=== PATIENT | male | born 1930 | race Caucasian/White ===

== ENCOUNTER → 2017-04-24 | Day surgery (SDC) | payer BC, MEDICARE, OTHER ==
[~2017-04-24] VITALS: Ht 172.7 cm; Wt 62.4 kg
[2017-04-24] VITALS (9 sets, daily range): BP systolic 98–107; BP diastolic 45–60; PULSE 86–92; RESP 22–34; Ht 172.7 cm; Wt 62.4 kg
[~2017-04-24] MED LIST: ACET325S17 GTB; AMIO200T2 GTB; ASC250 GTB; BRIM10DR12 BOTH EYES; BUDE0.5A INHALATION; CEFAZOLIN 1 GM/50 ML (PMX) 50 ML IVPB ONE; CHLO473M4 MM; CHOL100062 GTB; CYAN500T46 GTB; DOXA1TAB GTB; FOL8 GTB; HYDR15SO8 GTB; IPRA3AMP INHALATION; LANS30CA GTB; LEVO500T72 GTB; LIDOCAINE 2% (SDV) 5 ML INJ ONE; LORA0.5T GTB; MELA5TAB4 GTB; METO-448 GTB; NEPH GTB; ONDA4TAB95 GTB; PHENYLephrine (100 MCG/ML) 5ML SYG ONE; POLY17PO6 GTB; PROPOFOL 20 ML ONE; PROT946L GTB; SERT25TA83 GTB; TRAM-40 GTB; UDFER GTB
--- NOTE | 2017-04-24 18:45 | GILP ---
DATE OF PROCEDURE: PROCEDURE: Percutaneous endoscopic gastrostomy and removal of the suture material. INDICATION: An 87-year-old male had infected G-tube, which was removed and I allowed the opening to close. The purpose of this procedure is to hopefully put a new G-tube through the same opening. T he risks of the procedure, related and unrelated complications, anesthetic risks, alternatives discu ssed with the and informed consent was obtained. DESCRIPTION OF PROCEDURE: The patient was brought to the GI lab, sedated by the anesthesiologist, Aba Rubio. After appropriate sedation, scope was passed with much ease into esophagus and advanc ed further down into stomach. In the stomach, bear claw clip was identified in the fundal area. Th ere was another clip found exactly opposite to the bear claw clip on the other wall. I looked there at the G-tube site. Suture material was identified. There was a suture material also seen in the external stoma. At this point, I passed a wire through the gastrocutaneous fistula. ____ inside th e stomach, was snared with transendoscopically passed snare, and the whole procedure was completed b y modified Ponsky technique. Before placing the external bumper, I removed the suture material from the external stoma. The suture material and internal stoma we were able to break it because it was in the form of loop. Part of it was removed. The other part could not come out, which it was not clear to me, maybe there was a knot inside. This happens to be in the abdominal wall. So, scope wa s removed and external bumper was appropriately positioned. The patient tolerated the procedure alejandra y well. IMPRESSION: 1. Successful placement of G-tube done through the same opening. 2. Suture material was removed from the external stoma. 3. Part of the suture material removed from the internal stoma, the other part hoping ready to fall off. PLAN: Resume feeding through the G-tube, abdominal binder, and will examine the G-tube site for dev elopment of any infection. Dictated By: LIANNA JAUREGUI/NTS Conf#: [id number] DID#: [id number] CC: LIGIA MATAMOROS DO; LIANNA BOWLING MD;*EndCC*
== END | disposition home or self-care (01) ==
LOC: ZBAR 09:00
PROVIDERS: ATTEND Internal Medicine Gastroenterology
DX: R13.10 Dysphagia, unspecified (principal); I12.9 Hypertensive chronic kidney disease with stage 1 through stage 4 chronic kidney disease, or unspecified chronic kidney disease; N18.9 Chronic kidney disease, unspecified; I25.10 Atherosclerotic heart disease of native coronary artery without angina pectoris; E78.5 Hyperlipidemia, unspecified
CPT/HCPCS: 43246; J0690; J2370

== ENCOUNTER 2017-08-11 09:06 | Inpatient (IN) | payer MEDICARE, BC, OTHER ==
[~2017-08-11] VITALS: Ht 167.6 cm; Wt 84.7 kg
[2017-08-11] VITALS (23 sets, daily range): BP systolic 90–119; BP diastolic 43–76; PULSE 68–86; RESP 20–38; TEMP 97.3; Ht 167.6 cm; Wt 84.7 kg
[~2017-08-11 09:06] MED LIST changes: -ASC250 GTB; +ASCO250T96 GTB; -CEFAZOLIN 1 GM/50 ML (PMX) 50 ML IVPB ONE; -LIDOCAINE 2% (SDV) 5 ML INJ ONE; -PHENYLephrine (100 MCG/ML) 5ML SYG ONE; -PROPOFOL 20 ML ONE
[2017-08-11] MEDS ORDERED: ACETAMINOPHEN 650MG/20.3ML CUP NGT STA (09:27)
[2017-08-11] MEDS ORDERED: SODIUM CHLORIDE 0.9% 1L BAG IV* STA (09:27)
[2017-08-11] MEDS ORDERED: CEFEPIME 2GM/50 ML (PMX) 50 ML IVPB STA (09:27)
[2017-08-11] MEDS ORDERED: FAMOTIDINE 20 MG INJ IV ONE (09:30)
[2017-08-11] MEDS ORDERED: VANCOMYCIN 1 GM (PMX) 250 ML IVPB ONE (09:30)
[2017-08-11 09:43] LABS: BASOPHILS % 0.2 % (0.0-2.0); EOSINOPHILS # 0.1 10^3/ul (0.0-0.5); EOSINOPHILS % 0.4 % (0.0-7.0); HEMATOCRIT 24.8 % (42.0-52.0); HEMOGLOBIN 7.4 g/dl (14.0-18.0); LYMPHOCYTES % 5.5 % (15.0-51.0); MEAN CORPUSCULAR HEMOGLOBIN 32.3 pg (29.0-33.0); MEAN CORPUSCULAR HGB CONC 29.8 g/dl (32.0-37.0); MEAN CORPUSCULAR VOLUME 108.3 fl (82.0-101.0); MEAN PLATELET VOLUME 12.2 fl (7.4-10.4); MONOCYTE # 1.5 10^3/ul (0.3-0.9); MONOCYTES % 8.1 % (0.0-11.0); NEUTROPHIL # 14.9 10^3/ul (1.6-7.5); NEUTROPHILS % 83.8 % (39.0-77.0); NUCLEATED RED BLOOD CELLS # 0.1 10^3/ul (0.0-0.0); NUCLEATED RED BLOOD CELLS% 0.5 /100WBC (0.0-0.0); PLATELET COUNT 177 10^3/UL (140-415); RED BLOOD COUNT 2.29 10^6/ul (4.70-6.10); RED CELL DISTRIBUTION WIDTH 21.8 % (11.5-14.5); WHITE BLOOD COUNT 17.8 10^3/ul (4.8-10.8)
[2017-08-11 09:57] LABS: AADO2 Arterial 236.7 mmHg (7.0-24.0); Allen Test ACCEPTAB; Arterial Base Excess -4.6 mmol/L (-3.0-3); Arterial COHb 0.3 % (0.0-3.0); Arterial Fraction of Oxyhgb 98.5 % (93.0-99.0); Arterial HCO3 24.7 mmol/L (22.0-26.0); Arterial MetHb 0.6 % (0.0-1.5); Arterial Total Hemglobin 7.7 g/dl (12.0-18.0); MODE VENT - AC
[2017-08-11] MEDS ORDERED: NORepinephrine 8MG/250 ML (PMX 250 ML ONE (10:02)
[2017-08-11 10:05] LABS: INR 1.41; PARTIAL THROMBOPLASTIN TIME 41.6 Sec (25.0-35.0); PROTIME 17.3 Sec (12.2-14.2); PT RATIO 1.4
[2017-08-11 10:14] LABS: ALANINE AMINOTRANSFERASE 39 IU/L (13-69); ALBUMIN 2.9 g/dl (3.3-4.9); ALKALINE PHOSPHATASE 264 IU/L (42-121); ANION GAP 14 (8-16); ASPARTATE AMINO TRANSFERASE 40 IU/L (15-46); CALCIUM 8.7 mg/dl (8.4-10.2); CARBON DIOXIDE 23 mmol/L (21-31); CHLORIDE 102 mmol/L (97-110); CREATININE 3.56 mg/dl (0.61-1.24); GLUCOSE 143 mg/dl (70-220); POTASSIUM 4.9 mmol/L (3.5-5.1); SODIUM 134 mmol/L (135-144); TOTAL PROTEIN 8.7 g/dl (6.1-8.1)
--- NOTE | 2017-08-11 10:17 | RADRPT ---
PROCEDURE: XR Chest. CLINICAL INDICATION: chest pain TECHNIQUE: Single frontal view of the chest was obtained COMPARISON: 05/12/2017 FINDINGS: There is moderate cardiomegaly with pulmonary vascular congestion. There are extensive bilateral upp er lobe and lower lobe infiltrates. There is a moderate right pleural effusion and a small to modera te left pleural effusion. There is a tracheostomy tube in place. RPTAT: AA IMPRESSION: Moderate cardiomegaly with pulmonary vascular congestion. Extensive bilateral upper lobe and lower lobe infiltrates. Moderate right pleural effusion and small to moderate left pleural effusion. .Eric Jhaveri MD, MD Date Time Electronically viewed and signed by .Eric Jhaveri MD, on 08/11/2017 10:17 .S/
[2017-08-11 10:24] LABS: BLOOD UREA NITROGEN 123 mg/dl (7-20)
[2017-08-11 10:29] LABS: TROPONIN-I < 0.012 ng/ml (0.00-0.12)
[2017-08-11] MEDS ORDERED: ASC500 GTB (11:39)
[2017-08-11] MEDS ORDERED: DIGO125T GTB (11:40)
[2017-08-11] MEDS ORDERED: CHOL200073 GTB (11:40)
[2017-08-11] MEDS ORDERED: DOCU-159 GTB (11:41)
[2017-08-11] MEDS ORDERED: FLUC100T39 GTB (11:41)
[2017-08-11] MEDS ORDERED: FOLI-49 GTB (11:42)
--- NOTE | 2017-08-11 11:42 | ERA ---
ER Documentation Chief Complaint Date/Time DATE: 08/11/17 TIME: 11:34 Chief Complaint BROUGHT IN VIA EMS FROM SNF DUE TO SOB,LETHARGIC, AND ALTERED HPI This is an 87-year-old male who is sent in by care home for decreased level of responsiveness. The patient's baseline is he has the ability to not shake his head yes or no at baseline. Today he is not doing this. The patient has a long-standing history of care home he is trached event, fed by G-tube and has an indwelling Pathak. is here and states he is a full code. There are no known obvious symptoms such as cough or fever. Very limited history ROS All systems reviewed and are negative except as per history of present illness. Medications Home Meds Reported Medications Cholecalciferol* (Vitamin D3*) 1,000 Unit Tablet, 1000 UNIT GTB DAILY, TAB 02/13/17 Ascorbic Acid (Vitamin C) 250 Mg Tab, 250 MG GTB DAILY, TAB 02/13/17 Tramadol Hcl* (Ultram*) 50 Mg Tablet, 50 MG GTB Q4H Y for PAIN, TAB FOR PAIN LEVEL 8-10 AND PRIOR TO WOUND CARE 02/13/17 Sertraline Hcl* (Sertraline Hcl*) 25 Mg Tablet, 25 MG GTB QHS, #30 TAB 02/13/17 Multivit/Ca Carb/B Cmplx/Fa* (Farhana-Emily*) 1 Tab Tab, 1 TAB GTB DAILY, TAB 02/13/17 Protein Supplement (Promod) 946 Ml Liquid, 30 ML GTB TID 02/13/17 Chlorhexidine Gluconate (Peridex) 473 Ml Mouthwash, 15 ML MM Q12H, BOTTLE 02/13/17 Ondansetron Hcl* (Ondansetron Hcl*) 4 Mg Tablet, 4 MG GTB Q4H Y for NAUSEA AND OR VOMITING, TAB 02/13/17 Polyethylene Glycol* (Miralax*) 17 Gm Powd.pack, 17 GM GTB DAILY, #30 PACKET 02/13/17 Metoprolol Tartrate* (Lopressor*) 25 Mg Tab, 12.5 MG GTB BID, #60 TAB HOLD IF SBP<110 OR HR<60 02/13/17 Melatonin (Melatonin) 5 Mg Tablet, 5 MG GTB HS, TAB 02/13/17 Hydrocodone Bit-Acetaminophen* (Lortab* Liq) 7.5 Mg-325 Mg/15 Ml Solution, 15 ML GTB Q6H Y for PAIN, ML 02/13/17 Lorazepam* (Lorazepam*) 0.5 Mg Tablet, 0.5 MG GTB Q12H Y for ANXIETY, TAB 02/13/17 Levofloxacin* (Levaquin*) 500 Mg Tablet, 500 MG GTB DAILY, TAB FOR 7 DAYS 02/14-02/2102/13/17 Lansoprazole* (Lansoprazole*) 30 Mg Capsule.dr, 30 MG GTB BID, CAP 02/13/17 Folic Acid (Fa-8) 0.8 Mg Tablet, 0.8 MG GTB DAILY, TAB 02/13/17 Ferrous Sulfate (Ferrous Sulfate) 300 Mg/5 Ml Liquid, 300 MG GTB DAILY 02/13/17 Ipratropium-Albuterol (Ipratropium-Albuterol) 0.5-3 Mg/3 Ml Ampul.neb, 3 ML INHALATION Q2H Y for PRN, #30 VIAL AND Q6H FOR SOB 02/13/17 Doxazosin Mesylate* (Doxazosin Mesylate*) 1 Mg Tablet, 1 MG GTB HS, TAB 02/13/17 Cyanocobalamin* (Vitamin B12*) 500 Mcg Tab, 1000 MCG GTB DAILY, TAB 02/13/17 Budesonide* (Budesonide*) 0.5 Mg/2 Ml Ampul.neb, 0.5 MG INHALATION BID, AMP 02/13/17 Brimonidine Tartrate* (Brimonidine Tartrate*) 0.15%-10ML Drop Opht, 1 DROP BOTH EYES BID, #1 EA 02/13/17 Amiodarone Hcl* (Amiodarone Hcl*) 200 Mg Tablet, 200 MG GTB DAILY, #30 TAB HOLD IF HR<60 02/13/17 Acetaminophen (MAPAP) 325 Mg/10.15 Ml Solution, 650 MG GTB Q4H Y for MILD PAIN LEVEL 1-3 FOR TEMP>101 02/13/17 Allergies Allergies: Coded Allergies: acetaminophen (Unverified Allergy, Unknown, 08/11/17) PMhx/Soc History of Surgery: Yes (PEG PLACEMENT, TRACH, HEMODIALYSIS ACCESS) Hx Neurological Disorder: No Hx Respiratory Disorders: Yes (HYPOXEMIA, RESP. FAILRE, COPD, VENT DEPENDENT) Hx Cardiac Disorders: Yes (AFIB, AORTIC STENOSIS, HEART FAILURE) Hx Miscellaneous Medical Probl: Yes (VENTILATOR DEPENDENT) Hx Substance Use: No Hx Tobacco Use: No (UNKNOWN) Smoking Status: Unknown if ever smoked FmHx Family History: No coronary disease Physical Exam Vitals Vital Signs Date Time Temp Pulse Resp B/P Pulse Ox O2 Delivery O2 Flow Rate FiO2 08/11/17 10:27 98.2 78 19 77/34 100 Trach Collar 08/11/17 10:00 66 18 81/44 100 Trach Collar 08/11/17 09:12 98.4 90 16 131/54 100 Physical Exam Const: [Well-developed, well-nourished, unresponsive] Head: [Atraumatic, normocephalic] Eyes: [Normal Conjunctiva, PERRLA, EOMI, normal sclera, no nystagmus] ENT: [Normal External Ears, Nose and Mouth, dry mucus membranes.] Neck: [Trachea is intact ventilating adequately no meningismus, no lymphadenopathy.] Resp: Diffuse bilateral rhonchi cardio: [Regular rate and rhythm , no murmurs, S1 S2 present] Abd: [Soft, G-tube intact, indwelling Pathak, non distended. Normal bowel sounds, no guarding or rebound, no pulsitile abdominal masses or bruits] Skin: [No petechiae or rashes, no ecchymosis , no maculopapular rash] Back: Several pressure sores different stages] Ext: [No cyanosis,, scattered skin tears and ecchymosis vascularly intact x 4] Neur: Unresponsive] Psych: [Unable to obtain Result Diagram: 08/11/1791808/11/17918 Results 24 hrs Laboratory Tests Test 08/11/17 09:19 08/11/17 09:32 White Blood Count 17.810^3/ul Red Blood Count 2.2910^6/ul Hemoglobin 7.4g/dl Hematocrit 24.8% Mean Corpuscular Volume 108.3fl Mean Corpuscular Hemoglobin 32.3pg Mean Corpuscular Hemoglobin Concent 29.8g/dl Red Cell Distribution Width 21.8% Platelet Count 24159^3/UL Mean Platelet Volume 12.2fl Neutrophils % 83.8% Lymphocytes % 5.5% Monocytes % 8.1% Eosinophils % 0.4% Basophils % 0.2% Nucleated Red Blood Cells % 0.5/100WBC Neutrophils # 14.910^3/ul Lymphocytes # 1.010^3/ul Monocytes # 1.510^3/ul Eosinophils # 0.110^3/ul Basophils # 0.010^3/ul Nucleated Red Blood Cells # 0.110^3/ul Prothrombin Time 17.3Sec Prothrombin Time Ratio 1.4 INR International Normalized Ratio 1.41 Activated Partial Thromboplast Time 41.6Sec Sodium Level 134mmol/L Potassium Level 4.9mmol/L Chloride Level 102mmol/L Carbon Dioxide Level 23mmol/L Anion Gap 14 Blood Urea Nitrogen 123mg/dl Creatinine 3.56mg/dl Glucose Level 143mg/dl Lactic Acid Level 1.0mmol/L Calcium Level 8.7mg/dl Total Bilirubin 0.0mg/dl Direct Bilirubin 0.00mg/dl Indirect Bilirubin 0.0mg/dl Aspartate Amino Transf (AST/SGOT) 40IU/L Alanine Aminotransferase (ALT/SGPT) 39IU/L Alkaline Phosphatase 264IU/L Troponin I < 0.012ng/ml Total Protein 8.7g/dl Albumin 2.9g/dl Globulin 5.80g/dl Albumin/Globulin Ratio 0.50 Blood Gas Specimen Source Blood arterial Arterial Blood Date Drawn 08/11/2017 9:50:30 AM Arterial Blood pH (Temp corrected) 7.131 Arterial Blood pCO2 (Temp correct) 75.8mmhg Arterial Blood pO2 (Temp corrected) 180.9mmHG Arterial Blood HCO3 24.7mmol/L Arterial Blood Base Excess -4.6mmol/L Arterial Blood Oxygen Saturation 99.4mmHG Folyd Test ACCEPTAB Arterial Blood Gas Puncture Site Right Radial Arterial Blood Carboxyhemoglobin 0.3% Arterial Blood Methemoglobin 0.6% Blood Gas A-a O2 Differential 236.7mmHg Oxyhemoglobin Percent 98.5% Total Hemoglobin 7.7g/dl Blood Gas Temperature 37.0C Blood Gas Respiration Rate 16.0 Blood Gas Actual Respiration Rate 19 Blood Gas Modality VENT - AC FiO2 70.0% Blood Gas Tidal Volume 500.0mL Blood Gas Low PEEP Setting 5.0cmH2O Blood Gas Critical Value Read Back TABITHA DO Blood Gas Notified Whom RT Blood Gas Notified Time 08/11/2017 9:57:23 AM Current Medications Medications (Trade) Dose Ordered Sig/Seth Route PRN Reason Start Time Stop Time Status Last Admin Dose Admin Sodium Chloride (NS) 2,680 ml BOLUS OVER 2 HOURS STAT IV* 08/11/17 09:27 08/11/17 09:29 DC 08/11/17 09:49 Famotidine (Pepcid Iv) 20 mg ONCE ONCE IV 08/11/17 09:30 08/11/17 09:31 DC 08/11/17 09:43 Acetaminophen 650 mg 650 mg ONCE STAT NGT 08/11/17 09:27 08/11/17 09:29 DC Cefepime HCl 50 ml @ 100 mls/hr ONCE STAT IVPB 08/11/17 09:27 08/11/17 09:56 DC 08/11/17 09:43 Vancomycin HCl 250 ml @ 125 mls/hr ONCE ONCE IVPB 08/11/17 09:30 08/11/17 11:29 DC 08/11/17 10:23 Norepinephrine (Levophed) 250 ml @ ud STK-MED ONCE .ROUTE 08/11/17 10:02 08/11/17 10:03 DC Procedures/MDM PROCEDURE: XR Chest. CLINICAL INDICATION: chest pain TECHNIQUE: Single frontal view of the chest was obtained COMPARISON: 05/12/2017 FINDINGS: There is moderate cardiomegaly with pulmonary vascular congestion. There are extensive bilateral upper lobe and lower lobe infiltrates. There is a moderate right pleural effusion and a small to moderate left pleural effusion. There is a tracheostomy tube in place. RPTAT: AA IMPRESSION: Moderate cardiomegaly with pulmonary vascular congestion. Extensive bilateral upper lobe and lower lobe infiltrates. Moderate right pleural effusion and small to moderate left pleural effusion. .Eric Jhaveri MD, MD Date Time Electronically viewed and signed by .Eric Jhaveri MD, MD on 08/11/2017 10: 17 .S/ CC: BROOKE LU DO EKG: Rate/Rhythm: Atrial fibrillation with aberrant conduction heart rate 92, prolonged QT QRS, ST, QT: NORMAL [place], QRS,] Impression: Atrial fibrillation] Patient's lactate is 1.0. He received sepsis fluids. Blood pressure still with a systolic of 80 and will start Levophed drip We will admit for bilateral pneumonia and hypotension and watch for sepsis. Critical Care Time: 35 minutes Treatments/Evaluations: Close monitoring and treatment of unstable vital signs, cardiorespiratory, and neurologic status, while maintaining tight balance of fluid, respiratory, and cardiac interventions. This time includes discussing the case with the patient and the patient's family. This time does not include all procedures stated elsewhere in this record. This time also includes reviewing old records, labs and radiological studies. This time includes examining and re-examining the patient. Additionally, this time also includes arranging care with admitting and consulting physicians. Departure Diagnosis: Primary Impression: Hypotension Qualified Code: I95.9 - Hypotension, unspecified hypotension type Additional Impression: Bilateral pneumonia Qualified Code: J18.9 - Pneumonia of both lungs due to infectious organism, unspecified part of lung Condition: Serious BROOKE LU DO Aug 11, 2017 11:42
[2017-08-11] MEDS ORDERED: LACT1CAP57 GTB (11:43)
[2017-08-11] MEDS ORDERED: MULTI GTB (11:44)
[2017-08-11] MEDS ORDERED: HYDR-906 GTB (11:44)
[2017-08-11] MEDS ORDERED: TRAM-40 GTB ×2 (11:46)
[2017-08-11] MEDS ORDERED: ZOLP5TAB7 GTB (11:47)
[2017-08-11] MEDS ORDERED: INSU100V3 IJ (11:54)
[2017-08-11] MEDS ORDERED: NORepinephrine 8MG/250 ML (PMX 250 ML IV STA (12:00)
[2017-08-11] MEDS ORDERED: ALBUTEROL/IPRATROPIUM (NEB) 3 ML AMP NEB PRN (13:00)
--- NOTE | 2017-08-11 14:07 | CONS ---
Date/Time of Note Date/Time of Note DATE: 08/11/17 TIME: 14:01 Assessment/Plan Assessment/Plan Additional Assessment/Plan It was reviewed which is showing bilateral infiltrates/pulmonary edema. Patient is currently on assist control of 22, tidal volume 500, PEEP of 0, 70% FiO2. Levophed at 7 mics per minute. Assessment and recommendations; 1. Patient admitted with severe sepsis from bilateral pneumonia. 2. Chronic respiratory failure which is ventilator dependent. 3. History of recurrent sepsis. 4. Advanced dementia. Continue supportive care. Continue current antibiotics. Overall prognosis remains very poor. Consultation Date/Type/Reason Admit Date/Time Date of Consultation: Aug 11, 2017 Type of Consultation: Pulmonary/critical care Reason for Consultation pulmonary/critical care consultation requested for evaluation of severe sepsis. History of presenting illness; patient is a 87-year-old male who was transferred from senior living to ER with complaints of being hypotensive and hypoxemic. Upon evaluation a chest x-ray was done which is showing diffuse bilateral pneumonia. Patient has been fluid resuscitated and currently on Levophed drip for hypotension. Patient has advanced dementia and was unable to give any history whatsoever. History was obtained from medical records as well as from patient's family who were present in the room. Past medical history; 1. Chronic respiratory failure. 2. History of recurrent sepsis. 3. Status post tracheostomy and G-tube placement. Patient; reviewed. Allergies; acetaminophen. Family history; patient is has supportive family. Occupation history; noncontributory. Review systems; unable to be obtained. General exam; elderly male, on ventilator via tracheostomy. Currently in no distress. Unresponsive. Social History Smoking Status: Unknown if ever smoked Exam/Review of Systems Vital Signs Vitals Vital Signs Date Time Temp Pulse Resp B/P Pulse Ox O2 Delivery O2 Flow Rate FiO2 08/11/17 14:00 76 20 66/33 100 Mechanical Ventilator Trach Collar 08/11/17 13:17 96.3 08/11/17 11:34 70 Exam HEENT exam; supple neck, positive JVD, no lymphadenopathy, patient is edentulous , tracheostomy in place, pupils are small bilaterally, no neck masses. Examined; bilateral crackles. S1-S2 audible, no murmurs. Abdomen exam; soft, protuberant. G-tube in place. Bowel sounds are sluggish. Extremity exam; 4 plus generalized edema. Patient has a multiple ecchymosis involving all 4 extremities. Scrotal edema is present. 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 Results Result Diagram: 08/11/1791808/11/17 0919 Results 24 hrs Laboratory Tests Test 08/11/17 09:19 08/11/17 09:32 08/11/17 11:26 White Blood Count 17.8 #H Red Blood Count 2.29 #L Hemoglobin 7.4 #L Hematocrit 24.8 #L Mean Corpuscular Volume 108.3 H Mean Corpuscular Hemoglobin 32.3 Mean Corpuscular Hemoglobin Concent 29.8 L Red Cell Distribution Width 21.8 H Platelet Count 177 Mean Platelet Volume 12.2 H Neutrophils % 83.8 H Lymphocytes % 5.5 L Monocytes % 8.1 Eosinophils % 0.4 Basophils % 0.2 Nucleated Red Blood Cells % 0.5 H Neutrophils # 14.9 H Lymphocytes # 1.0 Monocytes # 1.5 H Eosinophils # 0.1 Basophils # 0.0 Nucleated Red Blood Cells # 0.1 H Prothrombin Time 17.3 H Prothrombin Time Ratio 1.4 INR International Normalized Ratio 1.41 Activated Partial Thromboplast Time 41.6 H Sodium Level 134 L Potassium Level 4.9 Chloride Level 102 Carbon Dioxide Level 23 Anion Gap 14 Blood Urea Nitrogen 123 H Creatinine 3.56 H Glucose Level 143 Lactic Acid Level 1.0 1.3 Calcium Level 8.7 Total Bilirubin 0.0 L Direct Bilirubin 0.00 Indirect Bilirubin 0.0 Aspartate Amino Transf (AST/SGOT) 40 Alanine Aminotransferase (ALT/SGPT) 39 Alkaline Phosphatase 264 H Troponin I < 0.012 Total Protein 8.7 H Albumin 2.9 L Globulin 5.80 H Albumin/Globulin Ratio 0.50 Blood Gas Specimen Source Blood arterial Arterial Blood Date Drawn 08/11/2017 9:50:30 AM Arterial Blood pH (Temp corrected) 7.131 *L Arterial Blood pCO2 (Temp correct) 75.8 H Arterial Blood pO2 (Temp corrected) 180.9 H Arterial Blood HCO3 24.7 Arterial Blood Base Excess -4.6 L Arterial Blood Oxygen Saturation 99.4 Floyd Test ACCEPTAB Arterial Blood Gas Puncture Site Right Radial Arterial Blood Carboxyhemoglobin 0.3 Arterial Blood Methemoglobin 0.6 Blood Gas A-a O2 Differential 236.7 H Oxyhemoglobin Percent 98.5 Total Hemoglobin 7.7 L Blood Gas Temperature 37.0 Blood Gas Respiration Rate 16.0 Blood Gas Actual Respiration Rate 19 Blood Gas Modality VENT - AC FiO2 70.0 Blood Gas Tidal Volume 500.0 Blood Gas Low PEEP Setting 5.0 Blood Gas Critical Value Read Back TABITHA DO Blood Gas Notified Whom RT Blood Gas Notified Time 08/11/2017 9:57:23 AM DAKOTA SHELLEY Aug 11, 2017 14:07
[2017-08-11] MEDS ORDERED: SOD CHLORIDE 0.9% 250 ML IV* ONE (14:23)
[2017-08-11] MEDS ORDERED: VANCOMYCIN IV PER PHARMACY XX SCH (14:30)
[2017-08-11] MEDS ORDERED: GLUCOSE GEL 15 GRAM TUBE PO PRN ×2 (16:00)
[2017-08-11] MEDS ORDERED: GLUCOSE GEL 15 GRAM TUBE BUCCAL PRN (16:00)
[2017-08-11] MEDS ORDERED: GLUCAGON 1 MG INJ IM PRN (16:00)
[2017-08-11] MEDS ORDERED: DEXTROSE 50% 50 ML SYRINGE IV PRN ×2 (16:00)
[2017-08-11 16:19] LABS: ADD UMIC YES; UR ASCORBIC ACID NEGATIVE (NEGATIVE); UR BACTERIA MODERATE /HPF (NONE SEEN); UR BILIRUBIN (Dip) NEGATIVE (NEGATIVE); UR BLOOD (Dip) 2+ mg/dL (NEGATIVE); UR CLARITY TURBID (CLEAR); UR COLOR YELLOW (YELLOW); UR GLUCOSE (Dip) NEGATIVE (NEGATIVE); UR KETONES (Dip) NEGATIVE (NEGATIVE); UR LEUKOCYTE ESTERASE (Dip) 2+ Leu/ul (NEGATIVE); UR NITRITE (Dip) NEGATIVE (NEGATIVE); UR RBC 102 /HPF (0-5); UR SPECIFIC GRAVITY (Dip) 1.014 (1.003-1.030); UR TOTAL PROTEIN (Dip) 2+ mg/dl (NEGATIVE); UR UROBILINOGEN (Dip) NEGATIVE (NEGATIVE)
[2017-08-11] MEDS: SOD CHLORIDE 0.9% 1,000 ML IV SCH (16:32)
[2017-08-11] MEDS ORDERED: VANCOMYCIN 750 MG in SOD CHLORIDE 0.9% 150 ML IVPB ONE (17:00)
[2017-08-11] MEDS: INSULIN ASPART [NOVOLOG] 3 ML PEN SC SCH ×2 (18:00→20:56)
[2017-08-11] MEDS: LACTOBACILLUS RHAMNOSUS CAP GTB SCH (20:53)
[2017-08-11] MEDS ORDERED: PENDING SANTYL ORDER FOR WOUND CARE XX PRN (22:00)
--- NOTE | 2017-08-11 22:56 | CONS ---
Date/Time of Note Date/Time of Note DATE: 08/11/17 TIME: 22:49 Assessment/Plan Assessment/Plan Chief Complaint/Hosp Course 1) Hypotension 2) Septic shock 3) CRI 4) Preserved LV function 5) CHF diastolic acute and chronic 6) Chronic respiratory failure 7) Tracheostoma in situ 8) Premature beats 9) Dementia Problems: Additional Assessment/Plan 1) Echo 2) venous duplex 3) BNP 4) Magnesium level 5) D Dimer 6) pressors for SBP > 90 7) ABX 8) Respiratory care 9) Digoxin to every other day Consultation Date/Type/Reason Admit Date/Time Date of Consultation: Aug 11, 2017 Type of Consultation: cv Reason for Consultation hypotension Hx of Present Illness admitted with hypotensiion and hypothermia suggestive of septic shock. In ICU on vent, nonconversant. Subjective hx not possible: pt non-verbal, pt critical status Past Medical History Medical History: congestive heart failure, hypertension, renal disease, urinary tract infection, other (respiratory failure; chronic atrial fibrillation ) Family History Significant Family History: hypertension Social History Alcohol Use: none Smoking Status: Never smoker Drug Use: none Exam/Review of Systems Vital Signs Vitals Vital Signs Date Time Temp Pulse Resp B/P Pulse Ox O2 Delivery O2 Flow Rate FiO2 08/11/17 21:15 75 22 109/57 100 08/11/17 21:00 Mechanical Ventilator 08/11/17 20:00 97.6 08/11/17 18:30 60 Exam Constitutional: non-verbal Head: atraumatic, normocephalic Neck: supple Respiratory: diminished breath sounds Cardiovascular: irregular rhythm Gastrointestinal: soft Musculoskeletal: nl extremities to inspection Extremities: normal pulses Neurological: lethargic, unresponsive Results Result Diagram: 08/11/1791808/11/17918 Results 24 hrs Laboratory Tests Test 08/11/17 09:19 08/11/17 09:32 08/11/17 11:26 08/11/17 13:55 White Blood Count 17.8 #H Red Blood Count 2.29 #L Hemoglobin 7.4 #L Hematocrit 24.8 #L Mean Corpuscular Volume 108.3 H Mean Corpuscular Hemoglobin 32.3 Mean Corpuscular Hemoglobin Concent 29.8 L Red Cell Distribution Width 21.8 H Platelet Count 177 Mean Platelet Volume 12.2 H Neutrophils % 83.8 H Lymphocytes % 5.5 L Monocytes % 8.1 Eosinophils % 0.4 Basophils % 0.2 Nucleated Red Blood Cells % 0.5 H Neutrophils # 14.9 H Lymphocytes # 1.0 Monocytes # 1.5 H Eosinophils # 0.1 Basophils # 0.0 Nucleated Red Blood Cells # 0.1 H Prothrombin Time 17.3 H Prothrombin Time Ratio 1.4 INR International Normalized Ratio 1.41 Activated Partial Thromboplast Time 41.6 H Sodium Level 134 L Potassium Level 4.9 Chloride Level 102 Carbon Dioxide Level 23 Anion Gap 14 Blood Urea Nitrogen 123 H Creatinine 3.56 H Glucose Level 143 Lactic Acid Level 1.0 1.3 0.9 Calcium Level 8.7 Total Bilirubin 0.0 L Direct Bilirubin 0.00 Indirect Bilirubin 0.0 Aspartate Amino Transf (AST/SGOT) 40 Alanine Aminotransferase (ALT/SGPT) 39 Alkaline Phosphatase 264 H Troponin I < 0.012 Total Protein 8.7 H Albumin 2.9 L Globulin 5.80 H Albumin/Globulin Ratio 0.50 Blood Gas Specimen Source Blood arterial Arterial Blood Date Drawn 08/11/2017 9:50:30 AM Arterial Blood pH (Temp corrected) 7.131 *L Arterial Blood pCO2 (Temp correct) 75.8 H Arterial Blood pO2 (Temp corrected) 180.9 H Arterial Blood HCO3 24.7 Arterial Blood Base Excess -4.6 L Arterial Blood Oxygen Saturation 99.4 Floyd Test ACCEPTAB Arterial Blood Gas Puncture Site Right Radial Arterial Blood Carboxyhemoglobin 0.3 Arterial Blood Methemoglobin 0.6 Blood Gas A-a O2 Differential 236.7 H Oxyhemoglobin Percent 98.5 Total Hemoglobin 7.7 L Blood Gas Temperature 37.0 Blood Gas Respiration Rate 16.0 Blood Gas Actual Respiration Rate 19 Blood Gas Modality VENT - AC FiO2 70.0 Blood Gas Tidal Volume 500.0 Blood Gas Low PEEP Setting 5.0 Blood Gas Critical Value Read Back LEKKOS DO Blood Gas Notified Whom RT Blood Gas Notified Time 08/11/2017 9:57:23 AM Test 08/11/17 15:15 08/11/17 20:55 Urine Color YELLOW Urine Clarity TURBID A Urine pH 7.0 Urine Specific Isabel 1.014 Urine Ketones NEGATIVE Urine Nitrite NEGATIVE Urine Bilirubin NEGATIVE Urine Urobilinogen NEGATIVE Urine Leukocyte Esterase 2+ H Urine Microscopic RBC 102 H Urine Microscopic WBC > 182 H Urine Bacteria MODERATE Urine Hemoglobin 2+ H Urine Glucose NEGATIVE Urine Total Protein 2+ H Bedside Glucose 101 Imaging Free Text/Dictation CXR: infiltrates, pleural eff Medications Medications Current Medications Ascorbic Acid (Vitamin C) 500 mg DAILY GTB ; Start 08/12/17 at 09:00 Cholecalciferol (Vitamin D) 2,000 unit DAILY GTB ; Start 08/12/17 at 09:00 Digoxin (Digoxin) 0.125 mg DAILY@13 GTB ; Start 08/12/17 at 13:00 Ferrous Sulfate (Feosol Liquid Cup) 330 mg DAILY GTB ; Start 08/12/17 at 09:00 Fluconazole (Diflucan) 100 mg DAILY GTB ; Start 08/12/17 at 09:00 Folic Acid (Folic Acid) 1 mg DAILY GTB ; Start 08/12/17 at 09:00 Lactobacillus Acidophilus/ Rhamnosus (Culturelle) 1 cap BID GTB Last administered on 08/11/17t 20:53; Admin Dose 1 CAP; Start 08/11/17 at 21:00 Multivitamins Therapeutic 1 tab 1 tab DAILY GTB ; Start 08/12/17 at 09:00 Sodium Chloride 1,000 ml @ 100 mls/hr Q10H IV Last administered on 08/11/17t 16:32; Admin Dose 100 MLS/HR; Start 08/11/17 at 14:30 Cefepime HCl (Maxipime 1gm/50 ml (Pmx)) 50 ml @ 100 mls/hr Q24H IVPB ; Start at 10:00 Diagnostic Test (Pha) (Accu-Chek) 1 ea 02 XX ; Start 08/12/17 at 02:00 Miscellaneous Information 1 ea NOTE XX ; Start 08/11/17 at 16:00 Glucose (Glutose) 15 gm Q15M PRN PO DECREASED GLUCOSE; Start 08/11/17 at 16:00 Glucose (Glutose) 22.5 gm Q15M PRN PO DECREASED GLUCOSE; Start 08/11/17 at 16: 00 Dextrose (D50w Syringe) 25 ml Q15M PRN IV DECREASED GLUCOSE; Start 08/11/17 at 16:00 Dextrose (D50w Syringe) 50 ml Q15M PRN IV DECREASED GLUCOSE; Start 08/11/17 at 16:00 Glucagon (Glucagen) 1 mg Q15M PRN IM DECREASED GLUCOSE; Start 08/11/17 at 16:00 Glucose (Glutose) 15 gm Q15M PRN BUCCAL DECREASED GLUCOSE; Start 08/11/17 at 16 :00 Miscellaneous Information (Pending Santyl Order For Wound Care) This patient reyes... PRN PRN XX WOUND CARE; Start 08/11/17 at 22:00 Procedures Procedures EKG: afib, PVCs Telemetry: afib, ventricular bigemini MALLORY FLORES MD Aug 11, 2017 22:56
[2017-08-12] VITALS (60 sets, daily range): BP systolic 89–134; BP diastolic 39–94; PULSE 62–91; RESP 19–28
[2017-08-12 00:09] LABS: AADO2 Arterial 194.6 mmHg (7.0-24.0); Allen Test ACCEPTAB; Arterial Base Excess -5.3 mmol/L (-3.0-3); Arterial COHb 0.6 % (0.0-3.0); Arterial Fraction of Oxyhgb 98.3 % (93.0-99.0); Arterial HCO3 20.4 mmol/L (22.0-26.0); Arterial MetHb 0.4 % (0.0-1.5); Arterial Total Hemglobin 7.8 g/dl (12.0-18.0); MODE VENT - AC
[2017-08-12] MEDS: SOD CHLORIDE 0.9% 1,000 ML IV SCH ×2 (00:30→11:06)
[2017-08-12] MEDS: ACCU-CHEK XX SCH (02:00)
--- NOTE | 2017-08-12 02:10 | CONS ---
DATE OF ADMISSION: 08/11/2017 DATE OF CONSULTATION: 08/11/2017 REASON FOR CONSULTATION: Antibiotic management. HISTORY OF PRESENT ILLNESS: Dave Agosto is an 87-year-old male who [facility] the emergency room with hypertension and hypoxemia. His chest x-ray showed diffuse bilateral pneumonia. He has been fluid resuscitated and is on Levophed drip for hypotension. He has advanced dementia and could not giving any history. His past problems include: 1. Chronic respiratory failure. 2. Recurrent sepsis. 3. Status post tracheostomy. 4. Status post G-tube placement. On admission, his white count was 17.8, H and H of 7.4 and 24.8, platelet count 177,000. BUN/creatinine were 123/3.56. Blood sugar was 143. PAST MEDICAL HISTORY AND OPERATIONS: As outlined. FAMILY HISTORY: Noncontributory. SOCIAL HISTORY: He does not smoke, drink, or abuse drugs. ALLERGIES: NONE TO PENICILLIN, SULFA, OR FOODS. MEDICATIONS: Per chart. REVIEW OF SYSTEMS: As per HPI. PHYSICAL EXAMINATION: GENERAL: Patient is an elderly appearing male who is unresponsive and nonverbal on a ventilator. VITAL SIGNS: Blood pressure is being maintained with pressors. He has a trach and a PEG. SKIN: Dusky. HEENT: The patient is edentulous. NECK: Supple with tracheostomy in place. Lymph nodes nonpalpable. CHEST: Decreased breath sounds at the bases with scattered rhonchi and rales. HEART: Without murmur or gallop. ABDOMEN: Soft, nontender without organo-splenomegaly or masses. He has a G-tube in place. EXTREMITIES: Without cyanosis, clubbing. He has 4+ generalized edema, multiple ecchymoses over his extremities. RECTAL/GENITAL: Scrotal edema is present. NEUROLOGICAL: Patient is unresponsive, difficult to evaluate. IMPRESSION AND PLAN: Patient was started on vancomycin and cefepime. His cultures were done. He had blood cultures and urine done. We can do a sputum culture as well. I will dictate my findings to Dr. Marcos and to the hospitalist. Dictated By: Roland Bower MD JD/ruben/lula /Document#: [id number]
--- NOTE | 2017-08-12 02:22 | HP ---
DATE OF ADMISSION: 08/11/2017 CHIEF COMPLAINT: Respiratory failure, pneumonia, sepsis. HISTORY OF PRESENT ILLNESS: This is an 87-year-old male with a past medical history of ventilator-dependent respiratory failure, history of chronic kidney disease, previously on hemodialysis, history of hypertension, history of BPH, CHF, coronary artery disease, AFib, who presents to [facility] from a nursing home facility due to shortness of breath. The patient upon arrival in the emergency room had chest x-ray which showed multiple infiltrates[place] [address]. In the emergency room, the patient was given IV fluids and IV antibiotics. Patient was also noted to be hypertensive, in shock and started on presser support. Of note, the patient also has significant renal failure with BUN greater than 100 and creatinine of 3.4 mg/dL. I spoke with the patient's at bedside informing them of the critical nature of her , and also informing her that this patient may require hemodialysis. Patient's is aware and wishes everything to be done. There has been no reports of any hemoptysis, hematemesis or hematochezia. PAST MEDICAL HISTORY: As stated above. History of ventilator- dependent respiratory failure, history of CHF, chronic kidney disease, arrhythmia, history of encephalopathy, anxiety disorder, BPH. ALLERGIES: NO KNOWN DRUG ALLERGIES. PAST SURGICAL HISTORY: Status post trach, status post PEG. SOCIAL HISTORY: Lives in a subacute facility. FAMILY HISTORY: Noncontributory. MEDICATIONS: Reviewed and reconciled. REVIEW OF SYSTEMS: Unable to do adequate review of systems as patient is altered. Pertinent positives stated in HPI, otherwise negative. PHYSICAL EXAMINATION: VITAL SIGNS: Blood pressure is 80/75, respiration 18, pulse 82, temperature 98.3. HEENT: Head is normocephalic. Pupils are reactive to light. NECK: Supple. Neck shows a trach. CARDIAC: Heart is regular irregular. LUNGS: Diminished breath sounds at the base. ABDOMEN: Soft, nontender to palpation. Positive PEG. EXTREMITIES: Negative for clubbing, cyanosis. Positive diffuse anasarca. DERMATOLOGIC: No rashes. MUSCULOSKELETAL: Positive wounds. NEUROLOGIC: Limited exam due to lack of patient cooperation. LABORATORY DATA: White count 17.8, hemoglobin 7.4, hematocrit 24.8, platelet count 177,000. Sodium 134, BUN 123, creatinine 3.56. ASSESSMENT AND PLAN: 1. Septic shock, etiology secondary to healthcare-associated pneumonia. Patient's chest x-ray shows multiple infiltrates. Will continue current treatment plan. Continue IV fluids, IV antibiotics. Continue IV pressors. Will follow up with Infectious Disease and beef cattle farm manager for any recommendations. 2. Ventilator-dependent respiratory failure. Patient's vent settings have been reviewed. Will follow up with Pulmonary for recommendations. 3. 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 Physiology of acute kidney injury may be secondary to sepsis acute tubular necrosis. Patient has significant renal failure. Will give a trial of IV fluids and supportive care. If there is no significant renal improvement, patient will be initiated on hemodialysis. 4. Anemia likely of chronic disease. Will check iron panel, stool occult blood. Will transfuse 2 units of packed red blood cells, given Epogen and monitor hemoglobin and hematocrit levels. 5. Mineral bone disorder. Monitor calcium and phosphorus levels. 6. Atrial fibrillation, currently rate controlled. Continue medical management. Follow up with Cardiology. 7. Acute on chronic encephalopathy, etiology toxic metabolic. Continue to monitor. 8. Decubitus wound. Continue wound care. 9. Dysphagia status post percutaneous endoscopic gastrostomy. Will resume tube feeding once the patient is clinically stable. 10. Gastrointestinal and deep venous thrombosis prophylaxis. Continue proton pump inhibitor and sequential leg squeezers. 11. History of chronic disease. Continue medical management. Dictated By: Charles Gong DO /ruben/lula /Document#: [id number]
[2017-08-12] MEDS ORDERED: NORepinephrine 8MG/250 ML (PMX 250 ML IV SCH (03:00)
[2017-08-12 05:49] LABS: ABNORMAL IP MESSAGE 1; BASOPHILS % 0.2 % (0.0-2.0); EOSINOPHILS # 0.3 10^3/ul (0.0-0.5); EOSINOPHILS % 2.2 % (0.0-7.0); HEMATOCRIT 24.4 % (42.0-52.0); HEMOGLOBIN 7.6 g/dl (14.0-18.0); LYMPHOCYTES # 0.5 10^3/ul (0.8-2.9); LYMPHOCYTES % 4.2 % (15.0-51.0); MEAN CORPUSCULAR HEMOGLOBIN 31.1 pg (29.0-33.0); MEAN CORPUSCULAR HGB CONC 31.1 g/dl (32.0-37.0); MONOCYTE # 0.9 10^3/ul (0.3-0.9); MONOCYTES % 7.8 % (0.0-11.0); NEUTROPHIL # 10.2 10^3/ul (1.6-7.5); NEUTROPHILS % 84.1 % (39.0-77.0); PLATELET COUNT 134 10^3/UL (140-415); POSITIVE DIFF @See below; RED BLOOD COUNT 2.44 10^6/ul (4.70-6.10); RED CELL DISTRIBUTION WIDTH 21.4 % (11.5-14.5); WHITE BLOOD COUNT 12.1 10^3/ul (4.8-10.8)
[2017-08-12 06:03] LABS: CALCIUM 8.2 mg/dl (8.4-10.2); CREATININE 3.19 mg/dl (0.61-1.24); POTASSIUM 4.7 mmol/L (3.5-5.1)
[2017-08-12 06:04] LABS: D-DIMER 1430.22 ng/ml (<460)
--- NOTE | 2017-08-12 07:30 | PN ---
DATE: 08/12/2017 SUBJECTIVE DATA: Patient remains critically ill. The patient is receiving blood transfusion. Urinary output has been minimal. Please note, I discussed with the patient's yesterday about the possibility of initiating hemodialysis. No other events noted. No hemoptysis, hematemesis, hematochezia. OBJECTIVE DATA: VITAL SIGNS: Blood pressure is 100/49, respirations 22, pulse 75, temperature 98.6. HEENT: Head is normocephalic. NECK: Supple. HEART: Regular rate. LUNGS: Diminished breath sounds at the base. ABDOMEN: Soft. Nontender to palpation. No rebound or guarding. EXTREMITIES: Negative for clubbing, cyanosis. Positive edema. Diffuse anasarca. SKIN: No rashes. MUSCULOSKELETAL: No joint effusions. NEUROLOGIC: No change in exam. MEDICATIONS: The patient's medications have been reviewed. LABORATORY AND DIAGNOSTIC DATA: Shows sodium 133, potassium 4.7, BUN 125, creatinine 3.19. White count 12.1, hemoglobin 7.6, hematocrit 24.4, platelet count is 134. ASSESSMENT AND PLAN: 1. Septic shock. Etiology secondary to healthcare-associated pneumonia. The patient has multiple infiltrates. The patient is being weaned off pressors. Continue antibiotic therapy. Continue gentle volume expansion. We will follow up with Infectious Disease for recommendations. 2. Ventilatory-dependent respiratory failure. Vent settings and ABGs reviewed. Continue to monitor. Follow up Pulmonary. 3. Nonoliguric acute kidney injury on top of chronic kidney disease, stage IV/V. Etiology of acute kidney injury secondary sepsis and acute tubular necrosis. Possible progression of underlying chronic kidney disease. The patient at this point is dialysis dependent given his significant renal failure and minimal urinary output, and volume overload state. We will discuss with the patient's if she is okay with initiate hemodialysis. 4. Anemia of chronic disease. The patient will receive two units of packed red blood cells. We will give Epogen. Would and monitor. 5. Mineral bone disorder. Monitor calcium and phosphorus levels. 6. Atrial fibrillation, currently rate controlled. Continue to monitor. Follow up with Cardiology. 7. Acute on chronic encephalopathy. Etiology toxic metabolic. Continue to monitor. 8. Decubitus wound. Continue wound care. 9. Dysphagia. . Resume tube feeding. 10. Encephalopathy, acute on dementia. Etiology is toxic metabolic. Continue to monitor. 11. Gastrointestinal and deep venous thrombosis prophylaxis. 12. Arrhythmia. Follow up with Cardiology. 13. Hyponatremia secondary to renal failure. Continue to observe. Please note, I spent over 30 minutes of critical care time with this patient. Dictated By: Charles Gong DO /ruben/jaden /Document#: [id number]
[2017-08-12] MEDS: INSULIN ASPART [NOVOLOG] 3 ML PEN SC SCH ×4 (08:36→20:47)
[2017-08-12] MEDS: ASCORBIC ACID 500 MG TAB GTB SCH (08:45)
[2017-08-12] MEDS: MULTIVITAMINS THERAPEUTIC TAB GTB SCH (08:45)
[2017-08-12] MEDS: LACTOBACILLUS RHAMNOSUS CAP GTB SCH ×2 (08:45→20:44)
[2017-08-12] MEDS: FERROUS SULFATE 60 MG/ML 5ML CUP GTB SCH (08:45)
[2017-08-12] MEDS: FOLIC ACID 1 MG TAB GTB SCH (08:45)
[2017-08-12] MEDS: CHOLECALCIFEROL 2,000 UNIT CAP GTB SCH (08:45)
[2017-08-12] MEDS: FLUCONAZOLE 100 MG TAB GTB SCH (08:45)
--- NOTE | 2017-08-12 10:17 | CONS ---
Date/Time of Note Date/Time of Note DATE: 08/12/17 TIME: 10:15 Assessment/Plan Assessment/Plan Additional Assessment/Plan Ventilator setting; AC of 22, tidal volume 500, PEEP of 0, 40% FiO2. Assessment and recommendations; 1. Patient admitted with severe bilateral pneumonia currently on appropriate antibiotic regimen. 2. Hypotension with interval improvement. 3. Chronic respiratory failure. 4. Advanced dementia. Continue current treatment. Will obtain follow-up chest x-ray in 24 hours. Consultation Date/Type/Reason Admit Date/Time Aug 11, 2017 at 12:54 Initial Consult Date 08/11/17 Type of Consultation: Pulmonary/critical care 24 HR Interval Summary Free Text/Dictation Patient's condition remains critical. Patient remains chronically ventilator dependent. Patient however has remained hemodynamically stable and has been weaned off pressor support. General exam; elderly male, currently in no distress. On ventilator via tracheostomy. More responsive now. Exam/Review of Systems Vital Signs Vitals Vital Signs Date Time Temp Pulse Resp B/P Pulse Ox O2 Delivery O2 Flow Rate FiO2 08/12/17 09:30 77 20 111/62 100 08/12/17 09:00 Mechanical Ventilator 08/12/17 08:00 97.9 08/12/17 05:40 50 Intake and Output 08/11/17 08/11/17 08/12/17 15:00 23:00 07:00 Intake Total 501.25 ml 686.250 ml Output Total 110 ml 55 ml Balance 391.25 ml 631.250 ml Exam HEENT exam; supple neck, positive JVD. No lymphadenopathy. Midline trachea. No thyromegaly. Has bilateral intraocular lens implants. Patient is edentulous. Tracheostomy in place with clean insertion site. Chest exam; diminished breath sounds bilaterally. S1-S2 audible, no murmurs. Regular rhythm. Abdomen exam; soft, G-tube in place. Bowel sounds audible. Abdomen is nondistended. Extremity exam; no edema. Patient does have multiple ecchymosis involving all 4 extremities. CLINICAL ENGINEERING MANAGER exam; patient is awake and follows simple commands. Results Result Diagram: 08/12/17 0508/12/17 0520 Results 24 hrs Laboratory Tests Test 08/11/17 11:26 08/11/17 13:55 08/11/17 15:15 08/11/17 20:55 Lactic Acid Level 1.3 0.9 Urine Color YELLOW Urine Clarity TURBID A Urine pH 7.0 Urine Specific [place] 1.014 Urine Ketones NEGATIVE Urine Nitrite NEGATIVE Urine Bilirubin NEGATIVE Urine Urobilinogen NEGATIVE Urine Leukocyte Esterase 2+ H Urine Microscopic RBC 102 H Urine Microscopic WBC > 182 H Urine Bacteria MODERATE Urine Hemoglobin 2+ H Urine Glucose NEGATIVE Urine Total Protein 2+ H Bedside Glucose 101 Test 08/12/17 00:00 08/12/17 05:20 08/12/17 08:34 Blood Gas Specimen Source Blood arterial Arterial Blood Date Drawn 08/12/2017 12:00:29 AM Arterial Blood pH (Temp corrected) 7.319 L Arterial Blood pCO2 (Temp correct) 40.5 Arterial Blood pO2 (Temp corrected) 188.7 H Arterial Blood HCO3 20.4 L Arterial Blood Base Excess -5.3 L Arterial Blood Oxygen Saturation 99.3 Floyd Test ACCEPTAB Arterial Blood Gas Puncture Site Right Radial Arterial Blood Carboxyhemoglobin 0.6 Arterial Blood Methemoglobin 0.4 Blood Gas A-a O2 Differential 194.6 H Oxyhemoglobin Percent 98.3 Total Hemoglobin 7.8 L Blood Gas Temperature 37.0 Blood Gas Respiration Rate 22.0 Blood Gas Actual Respiration Rate 22 Blood Gas Modality VENT - AC FiO2 60.0 Blood Gas Tidal Volume 500.0 Blood Gas Low PEEP Setting 5.0 Blood Gas Inspiratory Pressure 39.0 Blood Gas Notified Whom MG Blood Gas Notified Time 08/12/2017 12:09:37 AM White Blood Count 12.1 #H Red Blood Count 2.44 L Hemoglobin 7.6 L Hematocrit 24.4 L Mean Corpuscular Volume 100.0 Mean Corpuscular Hemoglobin 31.1 Mean Corpuscular Hemoglobin Concent 31.1 L Red Cell Distribution Width 21.4 H Platelet Count 134 #L Mean Platelet Volume 12.0 H Neutrophils % 84.1 H Lymphocytes % 4.2 L Monocytes % 7.8 Eosinophils % 2.2 Basophils % 0.2 Nucleated Red Blood Cells % 0.0 Neutrophils # 10.2 H Lymphocytes # 0.5 L Monocytes # 0.9 Eosinophils # 0.3 Basophils # 0.0 Nucleated Red Blood Cells # 0.0 D-Dimer 1430.22 H D-Dimer Comment Sodium Level 133 L Potassium Level 4.7 Chloride Level 105 Carbon Dioxide Level 22 Anion Gap 11 Blood Urea Nitrogen 125 H Creatinine 3.19 H Glucose Level 79 # Calcium Level 8.2 L Magnesium Level 2.8 H B-Type Natriuretic Peptide 57906 H Bedside Glucose 86 Medications Medications Current Medications Ascorbic Acid (Vitamin C) 500 mg DAILY GTB Last administered on 08/12/17 08:45 ; Admin Dose 500 MG; Start 08/12/17 at 09:00 Cholecalciferol (Vitamin D) 2,000 unit DAILY GTB Last administered on 08:45; Admin Dose 2,000 UNIT; Start 08/12/17 at 09:00 Ferrous Sulfate (Feosol Liquid Cup) 330 mg DAILY GTB Last administered on 08:45; Admin Dose 330 MG; Start 08/12/17 at 09:00 Fluconazole (Diflucan) 100 mg DAILY GTB Last administered on 08/12/17 08:45; Admin Dose 100 MG; Start 08/12/17 at 09:00 Folic Acid (Folic Acid) 1 mg DAILY GTB Last administered on 08/12/17 08:45; Admin Dose 1 MG; Start 08/12/17 at 09:00 Lactobacillus Acidophilus/ Rhamnosus (Culturelle) 1 cap BID GTB Last administered on 08/12/17 08:45; Admin Dose 1 CAP; Start 08/11/17 at 21:00 Multivitamins Therapeutic 1 tab 1 tab DAILY GTB Last administered on 08/12/17 08:45; Admin Dose 1 TAB; Start 08/12/17 at 09:00 Sodium Chloride 1,000 ml @ 50 mls/hr Q20H IV Last administered on 08/11/17 16 :32; Admin Dose 100 MLS/HR; Start 08/11/17 at 14:30 Cefepime HCl (Maxipime 1gm/50 ml (Pmx)) 50 ml @ 100 mls/hr Q24H IVPB ; Start at 10:00 Diagnostic Test (Pha) (Accu-Chek) 1 ea 02 XX ; Start 08/12/17 at 02:00 Miscellaneous Information 1 ea NOTE XX ; Start 08/11/17 at 16:00 Glucose (Glutose) 15 gm Q15M PRN PO DECREASED GLUCOSE; Start 08/11/17 at 16:00 Glucose (Glutose) 22.5 gm Q15M PRN PO DECREASED GLUCOSE; Start 08/11/17 at 16: 00 Dextrose (D50w Syringe) 25 ml Q15M PRN IV DECREASED GLUCOSE; Start 08/11/17 at 16:00 Dextrose (D50w Syringe) 50 ml Q15M PRN IV DECREASED GLUCOSE; Start 08/11/17 at 16:00 Glucagon (Glucagen) 1 mg Q15M PRN IM DECREASED GLUCOSE; Start 08/11/17 at 16:00 Glucose (Glutose) 15 gm Q15M PRN BUCCAL DECREASED GLUCOSE; Start 08/11/17 at 16 :00 Miscellaneous Information (Pending Santyl Order For Wound Care) This patient reyes... PRN PRN XX WOUND CARE; Start 08/11/17 at 22:00 Digoxin 0.125 mg 0.125 mg Q2D GTB ; Start 08/12/17 at 13:00 Norepinephrine (Levophed) 250 ml @ 1.875 mls/ hr TITRATE IV Last administered on 08/12/17t 03:29; Admin Dose 15 MLS/HR; Start 08/12/17 at 03:00 Influenza Virus Vaccine (Fluzone) 0.5 ml ONCE ONCE IM* ; Start 08/13/17 at 09:00 ; Stop 08/13/17 at 09:01; Status Future Hold Collagenase (Santyl) 1 applic DAILY TOP ; Start 08/12/17 at 09:00 DAKOTA SHELLEY Aug 12, 2017 10:17
[2017-08-12] MEDS: CEFEPIME 1GM/50 ML (PMX) 50 ML IVPB SCH (11:04)
[2017-08-12] MEDS: COLLAGENASE 30 GM TUBE TOP SCH (11:04)
--- NOTE | 2017-08-12 11:04 | RADRPT ---
PROCEDURE: US bilateral lower extremity veins. CLINICAL INDICATION: Bilateral leg pain and swelling. TECHNIQUE: Multiple longitudinal and transverse images of the bilateral lower extremity veins were obtained with weiner scale and color Doppler imaging. The common femoral vein, femoral vein, and popl iteal vein were evaluated. 2D grayscale measurements with compression sonography, color Doppler, and pulsed Doppler with augmentation. COMPARISON: No prior studies are available for comparison. FINDINGS: The bilateral common femoral, femoral and popliteal veins are normally compressible throughout. Col or flow demonstrates normal filling of the vessels. Normal waveforms are visualized and there is no rmal response to augmentation. IMPRESSION: 1. No evidence of deep vein thrombosis involving either lower extremity. RPTAT: QQ .Merrill Amador MD, MD Date Time Electronically viewed and signed by .Merrill Amador MD, on 08/12/2017 11:04 .R/
--- NOTE | 2017-08-12 12:12 | RADRPT ---
Echocardiogram Report Patient Name: KATTY GOODMAN Gender: Male Date: 1930 Study Date: 12-Aug-2017 Pharmacist Manager: Evelyn [facility] Location: [address] Ref. Physician: MALLORY FLORES Quality: Adequate Procedures: Transthoracic echocardiogram with complete 2D, M-Mode, and doppler examination. Indications: Hypotension. 2D/M Mode Doppler Measurement Value Normal Ranges Measurement Value Normal Ranges LVIDd 2D 4.7 3.5 - 5.6 cm AV Peak Juvenal 1.9 m/sec LVIDs 2D 3.5 2.1 - 4.1 cm AV Peak PG 14.0 mmHg FS 2D 25.3 % LVOT Peak Juvenal 1.0 m/sec LVPWd 2D 1.6 0.6 - 1.1 cm LVOT Peak PG 4.0 mmHg IVSd 2D 1.5 0.6 - 1.1 cm MV E Peak Juvenal 1.5 m/sec IVS/LVPW 2D 1.0 MV Decel Time 296 msec AoR Diam 2D 3.4 2.0 - 3.7 cm TR Peak Juvenal 3.3 m/sec LA/Ao 2D 1 0 - 1 TR Peak PG 45.0 mmHg EDV 2D 102.0 cm3 RVSP 55.0 mmHg ESV 2D 42.5 cm3 LA Dimen 2D 4.2 2.3 - 4.0 cm Findings Left Ventricle: Normal left ventricular systolic function. Normal left ventricular cavity size. Moderate concentric left ventricular hypertrophy. Ejection fraction is visually estimated at 65 %. Abnormal Diastolic Function. Right Ventricle: Normal right ventricular size. Normal right ventricular systolic function. Left Atrium: There is mild enlargement of left atrium. Right Atrium: The right atrium is normal in size. Mitral Valve: Moderate mitral leaflet calcification. Mild mitral annular calcification. Trace mitral regurgitation. Aortic Valve: Aortic sclerosis without stenosis. Tricuspid Valve: Normal appearance of the tricuspid valve. Estimated peak PA systolic pressure 55 mmHg. There is mild to moderate tricuspid regurgitation. Pulmonic Valve: Normal pulmonic valve appearance. There is trace pulmonic regurgitation. Pericardium: Small pericardial effusion. Aorta: Normal aortic root. IVC: Normal size with poor respiratory collapse consistent with elevated right atrial pressure. Conclusions 1.Normal left ventricular systolic function. Normal left ventricular cavity size. Moderate concentric left ventricular hypertrophy. Ejection fraction is visually estimated at 65 %. Abnormal Diastolic Function. 2.Aortic sclerosis without stenosis. Electronically Signed By: Juan M Bender 12-Aug-2017 12:11:31 -0700 Patient Name: KATTY GOODMAN Study Date: 12-Aug-2017 [id number]
[2017-08-12] MEDS ORDERED: DIGOXIN 0.125 MG TAB GTB SCH (13:00)
--- NOTE | 2017-08-12 13:06 | PN ---
DATE: 08/12/2017 SUBJECTIVE DATA: No events overnight. The patient is awake, responsive, looks comfortable. No fevers. He is off pressors. OBJECTIVE DATA: VITAL SIGNS: Temperature 97.9, pulse 80, respirations 22, blood pressure 106/57, and saturation 100 on vent. LABORATORY AND DIAGNOSTIC DATA: WBC 12.1, H and H 7.6 and 24.4, platelets 134, neutrophils 84.1, BUN 125, and creatinine 3.19. MICROBIOLOGY: Blood culture growing gram-positive cocci in clusters. Urine culture pending. Nares swab pending. DIAGNOSTICS: Chest x-ray on admission revealed moderate cardiomegaly with pulmonary vascular congestion. Extensive bilateral upper lobe and lower lobe infiltrates, moderate right pleural effusion and [id number] left pleural effusion. Ultrasound revealed no DVT lower in lower extremities. INDWELLINGS: Trach, PEG, Pathak, and peripheral IV. ANTIMICROBIALS: The patient is on vancomycin, fluconazole, and cefepime. PHYSICAL EXAMINATION: GENERAL: This is a fragile, chronically ill-appearing, elderly man, who is in no distress. HEENT: Head atraumatic, normocephalic. Sclerae anicteric. Buccal mucosa dry. NECK: Supple. Tracheostomy present. CHEST: Rise symmetrical. Breath sounds diminished at the bases. HEART: S1, S2. ABDOMEN: Soft, bowel sounds hypoactive. EXTREMITIES: With bilateral edema. SKIN: With severe anasarca. Scrotal edema. Multiple ecchymotic areas and sacral wound. ASSESSMENT: 1. Severe sepsis with shock and multisystem organ failure. 2. Healthcare-associated pneumonia. 3. Urinary tract infection as per urinalysis. 4. Gram-positive cocci bacteremia. 5. Unstageable sacral decubitus. 6. Acute on chronic kidney disease. 7. Chronic respiratory failure. 8. Coronary artery disease. 9. History of atrial fibrillation. PLAN: 1. Patient is stable off pressors, covered with broad-spectrum antibiotics, pending final cultures. 2. 2D echo on admission revealed no evidence of vegetations, ejection fraction of 65 percent. Dictated By: Gm Addison NP /ruben/gabbie /Document#: [id number]
[2017-08-12] MEDS: DIGOXIN 0.125 MG TAB GTB SCH (13:43)
--- NOTE | 2017-08-12 14:01 | PN ---
DATE: 08/12/2017 SUBJECTIVE: Patient remains on trach. He is awake. PHYSICAL EXAMINATION: VITAL SIGNS: Temperature 97.9, pulse 77, blood pressure 111/62, oxygen saturation 100 percent on FiO2 of 50 percent. LUNGS: Diffuse rhonchi are appreciated. HEART: Reveals an irregular rhythm. EXTREMITIES: No edema noted. MEDICATIONS: Digoxin, cefepime, Feosol, Levophed being titrated. LABORATORY DATA: White count 12.1 down from 17.8, hematocrit 24.4, platelets 134,000. Sodium 133, BUN 125, creatinine 3.1 down from 3.5. ASSESSMENT: 1. Chronic respiratory failure. 2. Bilateral pneumonia. 3. Hypotension and septic shock. 4. Atrial fibrillation. PLAN: The patient shows mild signs of improvement although remains critically ill on pressors. I will continue antibiotics as per primary service. Dictated By: Juan M Bender MD /ruben/ghassan /Document#: [id number]
[2017-08-13] VITALS (46 sets, daily range): BP systolic 60–112; BP diastolic 33–79; PULSE 61–86; RESP 16–24
[2017-08-13] MEDS: ACCU-CHEK XX SCH (01:24)
[2017-08-13 06:07] LABS: ABNORMAL IP MESSAGE 1; BASOPHILS % 0.2 % (0.0-2.0); EOSINOPHILS # 0.3 10^3/ul (0.0-0.5); EOSINOPHILS % 3.9 % (0.0-7.0); HEMATOCRIT 26.3 % (42.0-52.0); HEMOGLOBIN 8.4 g/dl (14.0-18.0); LYMPHOCYTES # 0.4 10^3/ul (0.8-2.9); LYMPHOCYTES % 5.2 % (15.0-51.0); MEAN CORPUSCULAR HGB CONC 31.9 g/dl (32.0-37.0); MEAN PLATELET VOLUME 12.4 fl (7.4-10.4); MONOCYTE # 0.6 10^3/ul (0.3-0.9); MONOCYTES % 6.5 % (0.0-11.0); NEUTROPHIL # 7.1 10^3/ul (1.6-7.5); NEUTROPHILS % 83.1 % (39.0-77.0); PLATELET COUNT 111 10^3/UL (140-415); POSITIVE DIFF @See below; RED BLOOD COUNT 2.71 10^6/ul (4.70-6.10); RED CELL DISTRIBUTION WIDTH 21.2 % (11.5-14.5); WHITE BLOOD COUNT 8.5 10^3/ul (4.8-10.8)
[2017-08-13 06:45] LABS: CALCIUM 7.8 mg/dl (8.4-10.2); CREATININE 2.88 mg/dl (0.61-1.24); MAGNESIUM 2.8 mg/dl (1.7-2.5); PHOSPHORUS 6.5 mg/dl (2.5-4.9); POTASSIUM 4.5 mmol/L (3.5-5.1)
[2017-08-13] MEDS: INSULIN ASPART [NOVOLOG] 3 ML PEN SC SCH ×4 (07:35→20:53)
--- NOTE | 2017-08-13 07:38 | PN ---
DATE: 08/13/2017 SUBJECTIVE DATA: Patient remains critically ill on full ventilatory support. No other events noted. No hemoptysis, hematemesis or hematochezia. OBJECTIVE DATA: VITAL SIGNS: Blood pressure is 110/52, respirations 23, pulse 79, temperature 98.6. HEENT: Head is normocephalic. NECK: Supple. HEART: Regular rate. LUNGS: Diminished breath sounds at the base. ABDOMEN: Soft, nontender to palpation. No rebound or guarding. EXTREMITIES: Negative for clubbing, cyanosis. Positive edema, diffuse anasarca. SKIN: Clean, no rashes. MUSCULOSKELETAL: Positive wounds. NEUROLOGIC: No change in exam. MEDICATIONS: Reviewed. LABORATORY AND DIAGNOSTIC DATA: White count 8.5, hemoglobin 8.4, hematocrit 36.3, platelet count is 111. Patient's BMP is pending. Extremity ultrasound shows no evidence of deep vein thrombosis. The patient's blood cultures are positive for gram- positive cocci. ASSESSMENT AND PLAN: 1. Septic shock. Etiology secondary to healthcare-associated pneumonia. The patient's blood cultures are positive for gram- positive cocci. At this point, continue current treatment plan. Antibiotic therapy. The patient is being weaned off pressors. Continue gentle volume expansion. 2. Ventilatory-dependent respiratory failure. Vent settings, ABGs reviewed. Continue to monitor. 3. Nonoliguric acute kidney injury on top of chronic kidney disease stage 4/5. Etiology of acute kidney injury is likely secondary acute tubular necrosis. The has not shown any significant renal improvement. We will discuss with the patient's family about possibly initiating hemodialysis. 4. Diffuse anasarca volume overload. We will attempt diuretic therapy. Also the patient's family agrees to initiate dialysis and ultrafiltrate. Otherwise will continue medical management. Follow up with Cardiology. 5. Anemia of chronic disease. Monitor H and H levels. Will give Epogen as needed. 6. Mineral bone disorder. Monitor calcium and phosphorus levels. 7. Acute on chronic encephalopathy. Etiology toxic metabolic. 8. Decubitus wound. Continue wound care. 9. Dysphagia status post percutaneous endoscopic gastrostomy. Continue tube feeding. 10. Encephalopathy on chronic dementia. Etiology toxic metabolic. Continue to monitor. 11. Arrhythmia. Follow up with Cardiology. 12. Hyponatremia. Continue to monitor. 13. Gastrointestinal and deep venous thrombosis prophylaxis. Please note, I spent over 30 minutes of critical care time with this patient. Dictated By: Charles Gong DO /ruben/jessy /Document#: [id number]
--- NOTE | 2017-08-13 08:52 | RADRPT ---
PROCEDURE: XR Chest. CLINICAL INDICATION: Follow-up pneumonia TECHNIQUE: AP Portable chest. COMPARISON: 08/11/2017 FINDINGS: Tracheostomy tube is in place. The cardiomediastinal silhouette is enlarged, partially obscured. The aorta is calcified. Diffuse bi lateral interstitial densities, edema, pleural effusions and basilar opacities are again demonstrate d. The right pleural effusion is decreased. No pneumothorax is seen. The bones are demineralized. IMPRESSION: Edema, diffuse bilateral interstitial densities, basilar opacities and moderate pleural effusions, d ecreased on the right. Cardiomegaly. Aortic atherosclerosis. Physician Rasta Date Time Electronically viewed and signed by Physician Rasta on 08/13/2017 08:52 /
[2017-08-13] MEDS ORDERED: INFLUENZA VIRUS VACCINE 0.5 ML (DISPENSING) IM* ONE (09:00)
[2017-08-13] MEDS: FERROUS SULFATE 60 MG/ML 5ML CUP GTB SCH (09:09)
[2017-08-13] MEDS: LACTOBACILLUS RHAMNOSUS CAP GTB SCH ×2 (09:10→20:53)
[2017-08-13] MEDS: ASCORBIC ACID 500 MG TAB GTB SCH (09:10)
[2017-08-13] MEDS: FOLIC ACID 1 MG TAB GTB SCH (09:10)
[2017-08-13] MEDS: CEFEPIME 1GM/50 ML (PMX) 50 ML IVPB SCH (09:10)
[2017-08-13] MEDS: FLUCONAZOLE 100 MG TAB GTB SCH (09:10)
[2017-08-13] MEDS: CHOLECALCIFEROL 2,000 UNIT CAP GTB SCH (09:10)
[2017-08-13] MEDS: MULTIVITAMINS THERAPEUTIC TAB GTB SCH (09:10)
[2017-08-13] MEDS: COLLAGENASE 30 GM TUBE TOP SCH (10:00)
[2017-08-13] MEDS: SOD CHLORIDE 0.9% 1,000 ML IV SCH (10:16)
--- NOTE | 2017-08-13 10:21 | CONS ---
Date/Time of Note Date/Time of Note DATE: 08/13/17 TIME: 10:18 Assessment/Plan Assessment/Plan Additional Assessment/Plan Ventilator setting; AC of 22, tidal volume 500, PEEP of 5, 40% FiO2. Assessment recommendations; 1. patient admitted with severe pneumonia currently on appropriate broad- spectrum antibiotic coverage. 2. CHF with decreased pleural effusions. 3. Anemia and thrombocytopenia. 4. Acute renal insufficiency with continually improving serum creatinine. 5. Chronic respiratory failure. 6. Advanced dementia. Continue current supportive care. Consultation Date/Type/Reason Admit Date/Time Aug 11, 2017 at 12:54 Initial Consult Date 08/11/17 Type of Consultation: Pulmonary/critical care 24 HR Interval Summary Free Text/Dictation Patient's condition remains critical. Remains chronically ventilator dependent. Has improved hemodynamically and is off pressor support. General exam; elderly male, on ventilator via tracheostomy, awake, but does not follow any commands. Currently in no distress. Exam/Review of Systems Vital Signs Vitals Vital Signs Date Time Temp Pulse Resp B/P Pulse Ox O2 Delivery O2 Flow Rate FiO2 08/13/17 08:00 85 08/13/17 08:00 22 103/79 100 Mechanical Ventilator 08/13/17 07:30 98.7 08/13/17 07:12 50 Intake and Output 08/12/17 08/12/17 08/13/17 15:00 23:00 07:00 Intake Total 750 ml 400 ml 400 ml Output Total 80 ml 175 ml 188 ml Balance 670 ml 225 ml 212 ml Exam HEENT exam; supple neck, positive JVD. No lymphadenopathy. Midline trachea. No thyromegaly. Patient is edentulous. Tracheostomy placed with clean insertion site. Chest exam; bilateral crackles. S1-S2 audible, no murmurs. Abdomen exam; soft, nondistended. G-tube in place. Bowel sounds are audible. Extremity exam; no peripheral edema. Patient has a multiple ecchymosis involving all 4 extremities. [employer] exam; patient is awake and does not follow any commands. Results Result Diagram: 08/13/17 0541 08/13/17 0541 Results 24 hrs Laboratory Tests Test 08/12/17 10:58 08/12/17 17:49 08/12/17 20:46 08/13/17 01:21 Bedside Glucose 82 80 78 65 L Test 08/13/17 02:00 08/13/17 05:41 08/13/17 06:49 08/13/17 09:03 Bedside Glucose 104 76 White Blood Count 8.5 # Red Blood Count 2.71 L Hemoglobin 8.4 L Hematocrit 26.3 L Mean Corpuscular Volume 97.0 Mean Corpuscular Hemoglobin 31.0 Mean Corpuscular Hemoglobin Concent 31.9 L Red Cell Distribution Width 21.2 H Platelet Count 111 L Mean Platelet Volume 12.4 H Neutrophils % 83.1 H Lymphocytes % 5.2 L Monocytes % 6.5 Eosinophils % 3.9 Basophils % 0.2 Nucleated Red Blood Cells % 0.0 Neutrophils # 7.1 Lymphocytes # 0.4 L Monocytes # 0.6 Eosinophils # 0.3 Basophils # 0.0 Nucleated Red Blood Cells # 0.0 Sodium Level 135 Potassium Level 4.5 Chloride Level 107 Carbon Dioxide Level 18 L Anion Gap 15 Blood Urea Nitrogen 127 H Creatinine 2.88 H Glucose Level 71 Calcium Level 7.8 L Phosphorus Level 6.5 H Magnesium Level 2.8 H Random Vancomycin Level 25.2 Lab Scanned Report BLOOD TRANSFUSION Medications Medications Current Medications Ascorbic Acid (Vitamin C) 500 mg DAILY GTB Last administered on 08/13/17 09:10 ; Admin Dose 500 MG; Start 08/12/17 at 09:00 Cholecalciferol (Vitamin D) 2,000 unit DAILY GTB Last administered on 09:10; Admin Dose 2,000 UNIT; Start 08/12/17 at 09:00 Ferrous Sulfate (Feosol Liquid Cup) 330 mg DAILY GTB Last administered on 09:09; Admin Dose 330 MG; Start 08/12/17 at 09:00 Fluconazole (Diflucan) 100 mg DAILY GTB Last administered on 08/13/17 09:10; Admin Dose 100 MG; Start 08/12/17 at 09:00 Folic Acid (Folic Acid) 1 mg DAILY GTB Last administered on 08/13/17 09:10; Admin Dose 1 MG; Start 08/12/17 at 09:00 Lactobacillus Acidophilus/ Rhamnosus (Culturelle) 1 cap BID GTB Last administered on 08/13/17 09:10; Admin Dose 1 CAP; Start 08/11/17 at 21:00 Multivitamins Therapeutic 1 tab 1 tab DAILY GTB Last administered on 08/13/17 09:10; Admin Dose 1 TAB; Start 08/12/17 at 09:00 Sodium Chloride 1,000 ml @ 50 mls/hr Q20H IV Last administered on 08/12/17 11 :06; Admin Dose 50 MLS/HR; Start 08/11/17 at 14:30 Cefepime HCl (Maxipime 1gm/50 ml (Pmx)) 50 ml @ 100 mls/hr Q24H IVPB Last administered on 08/13/17 09:10; Admin Dose 100 MLS/HR; Start 08/12/17 at 10:00 Diagnostic Test (Pha) (Accu-Chek) 1 ea 02 XX Last administered on 08/13/17 01: 24; Admin Dose 1 EA; Start 08/12/17 at 02:00 Miscellaneous Information 1 ea NOTE XX ; Start 08/11/17 at 16:00 Glucose (Glutose) 15 gm Q15M PRN PO DECREASED GLUCOSE; Start 08/11/17 at 16:00 Glucose (Glutose) 22.5 gm Q15M PRN PO DECREASED GLUCOSE; Start 08/11/17 at 16: 00 Dextrose (D50w Syringe) 25 ml Q15M PRN IV DECREASED GLUCOSE Last administered on 08/13/17 01:39; Admin Dose 25 ML; Start 08/11/17 at 16:00 Dextrose (D50w Syringe) 50 ml Q15M PRN IV DECREASED GLUCOSE; Start 08/11/17 at 16:00 Glucagon (Glucagen) 1 mg Q15M PRN IM DECREASED GLUCOSE; Start 08/11/17 at 16:00 Glucose (Glutose) 15 gm Q15M PRN BUCCAL DECREASED GLUCOSE; Start 08/11/17 at 16 :00 Miscellaneous Information (Pending Santyl Order For Wound Care) This patient reyes... PRN PRN XX WOUND CARE; Start 08/11/17 at 22:00 Digoxin 0.125 mg 0.125 mg Q2D GTB Last administered on 08/12/17 13:43; Admin Dose 0.125 MG; Start 08/12/17 at 13:00 Norepinephrine (Levophed) 250 ml @ 1.875 mls/ hr TITRATE IV Last administered on 08/12/17 03:29; Admin Dose 15 MLS/HR; Start 08/12/17 at 03:00 Collagenase 1 applic 1 applic DAILY TOP Last administered on 08/12/17t 11:04; Admin Dose 1 APPLIC; Start 08/12/17 at 09:00 Vancomycin HCl (Vancocin) 250 ml @ 125 mls/hr Q96H IVPB ; Start 08/15/17 at 10: 00 DAKOTA SHELLEY Aug 13, 2017 10:21
--- NOTE | 2017-08-13 12:22 | PN ---
DATE: 08/13/2017 SUBJECTIVE DATA: No events overnight. The patient is lying comfortably in bed. He is off pressors, lethargic, arousable. No fevers. Temperature 98.7, pulse 76, respiration rate respirations blood pressure 103/79. Saturation 100 percent on ventilator. LABORATORY AND DIAGNOSTIC DATA: WBC 8.5, H and H 8.4 and 26.3, platelets 111,000. Neutrophils 83.1. Sodium 135, potassium 4.5, BUN 127, creatinine 2.88. MICROBIOLOGY: Blood culture growing Staph species. Urine culture growing gram-negative rods. Nares swab positive for MRSA. DIAGNOSTICS: Chest x-ray this morning revealed bilateral opacity and moderate pleural effusions, decreased on the right, indwelling trach, PEG, Pathak midline. ANTIMICROBIALS: Patient is on IV vancomycin, cefepime and fluconazole. OBJECTIVE DATA: PHYSICAL EXAMINATION: GENERAL: This is a fragile, cachectic elderly man who is lethargic and in no distress. HEENT: Head atraumatic, normocephalic. Sclerae anicteric. Buccal mucosa dry. NECK: Supple. Tracheostomy present. CHEST: Rise symmetrical. Breath sounds diminished at the bases. HEART: S1, S2. ABDOMEN: Soft. Bowel sounds hypoactive. EXTREMITIES: Bilateral edema and multiple ecchymotic areas. SKIN: With severe anasarca and pannus, scrotal edema. The patient has unstageable sacral decubitus. ASSESSMENT: 1. Sepsis status post-shock. 2. Staphylococcal bacteremia, possibly contaminant. 3. Recurrent urinary tract infection. 4. Unstageable sacral decubitus. 5. Methicillin-resistant Staphylococcus aureus nares colonization. 6. Severe anasarca. 7. Acute on chronic kidney disease, oliguric. 8. Chronic respiratory failure. 9. Congestive heart failure. 10. Atrial fibrillation. PLAN: The patient is on appropriate antibiotics. White blood cell count tracing down. He is being seen by multiple consultants. Cultures are pending. We will repeat blood cultures. Will add Bactroban to nares. Patient may require hemodialysis as per nephrology note. Dictated By: Gm Addison NP /[email or web address] /Document#: [id number]
[2017-08-13] MEDS: MUPIROCIN 2% 22 GM OINT TOP SCH ×2 (12:39→20:53)
--- NOTE | 2017-08-13 14:50 | CONS ---
Date/Time of Note Date/Time of Note DATE: 08/13/17 TIME: 14:42 Consult Date/Type/Reason Admit Date/Time Aug 11, 2017 at 12:54 Initial Consult Date 08/11/17 Type of Consultation: CARDIOLOGY Subjective CARDIOLOGY FOLLOW UP NOTE: S: Discussed with the staff and discussed with the patient in detail. Rhythm strip is reviewed. Patient remains in atrial fibrillation. Heart has been under good control. He is still on the vent status post tracheostomy. Patient denies any chest pain or pressure or palpitation to me. Objective: General: Thin man. s/p trach on vent HEENT: NC/AT. pupils are equal. round. NECK: s/p trach. . no stridor. CV: irregularly irregular. systolic murmur; no gallop or rubs. PULM: + diffuse rhonchi. no wheezing . GI: SOFT, NT, ND, no rebound or guarding s/p; PEG. Extremity: Diffuse 3+ B/L LE edema. no clubbing. neuro: awake and alert responds appropriately Psych: calm and pleasant rectal: deferred : normal male. s/p goley in place. ECHO Conclusions 1. Normal left ventricular systolic function. Normal left ventricular cavity size. Moderate concentric left ventricular hypertrophy. Ejection fraction is visually estimated at 65 %. Abnormal Diastolic Function. 2. Aortic sclerosis without stenosis. Electronically Signed By: Juan M Bender 12-Aug-2017 12:11:31 -0700 Objective Vital Signs Date Time Temp Pulse Resp B/P Pulse Ox O2 Delivery O2 Flow Rate FiO2 08/13/17 14:00 74 22 99/59 100 Mechanical Ventilator 08/13/17 13:16 50 08/13/17 12:00 98.8 Intake and Output 08/12/17 08/12/17 08/13/17 15:00 23:00 07:00 Intake Total 750 ml 400 ml 400 ml Output Total 80 ml 175 ml 208 ml Balance 670 ml 225 ml 192 ml Results/Medications Result Diagram: 08/13/17 0541 08/13/17 0541 Results 24 hrs Laboratory Tests Test 08/12/17 17:49 08/12/17 20:46 08/13/17 01:21 08/13/17 02:00 Bedside Glucose 80 78 65 L 104 Test 08/13/17 05:41 08/13/17 06:49 08/13/17 09:03 08/13/17 12:31 White Blood Count 8.5 # Red Blood Count 2.71 L Hemoglobin 8.4 L Hematocrit 26.3 L Mean Corpuscular Volume 97.0 Mean Corpuscular Hemoglobin 31.0 Mean Corpuscular Hemoglobin Concent 31.9 L Red Cell Distribution Width 21.2 H Platelet Count 111 L Mean Platelet Volume 12.4 H Neutrophils % 83.1 H Lymphocytes % 5.2 L Monocytes % 6.5 Eosinophils % 3.9 Basophils % 0.2 Nucleated Red Blood Cells % 0.0 Neutrophils # 7.1 Lymphocytes # 0.4 L Monocytes # 0.6 Eosinophils # 0.3 Basophils # 0.0 Nucleated Red Blood Cells # 0.0 Sodium Level 135 Potassium Level 4.5 Chloride Level 107 Carbon Dioxide Level 18 L Anion Gap 15 Blood Urea Nitrogen 127 H Creatinine 2.88 H Glucose Level 71 Calcium Level 7.8 L Phosphorus Level 6.5 H Magnesium Level 2.8 H Random Vancomycin Level 25.2 Lab Scanned Report BLOOD TRANSFUSION Bedside Glucose 76 91 Medications Current Medications Ascorbic Acid (Vitamin C) 500 mg DAILY GTB Last administered on 08/13/17 09:10 ; Admin Dose 500 MG; Start 08/12/17 at 09:00 Cholecalciferol (Vitamin D) 2,000 unit DAILY GTB Last administered on 09:10; Admin Dose 2,000 UNIT; Start 08/12/17 at 09:00 Ferrous Sulfate (Feosol Liquid Cup) 330 mg DAILY GTB Last administered on 09:09; Admin Dose 330 MG; Start 08/12/17 at 09:00 Fluconazole (Diflucan) 100 mg DAILY GTB Last administered on 08/13/17 09:10; Admin Dose 100 MG; Start 08/12/17 at 09:00 Folic Acid (Folic Acid) 1 mg DAILY GTB Last administered on 08/13/17 09:10; Admin Dose 1 MG; Start 08/12/17 at 09:00 Lactobacillus Acidophilus/ Rhamnosus (Culturelle) 1 cap BID GTB Last administered on 08/13/17 09:10; Admin Dose 1 CAP; Start 08/11/17 at 21:00 Multivitamins Therapeutic 1 tab 1 tab DAILY GTB Last administered on 08/13/17 09:10; Admin Dose 1 TAB; Start 08/12/17 at 09:00 Sodium Chloride 1,000 ml @ 50 mls/hr Q20H IV Last administered on 08/12/17 11 :06; Admin Dose 50 MLS/HR; Start 08/11/17 at 14:30 Cefepime HCl (Maxipime 1gm/50 ml (Pmx)) 50 ml @ 100 mls/hr Q24H IVPB Last administered on 08/13/17 09:10; Admin Dose 100 MLS/HR; Start 08/12/17 at 10:00 Diagnostic Test (Pha) (Accu-Chek) 1 ea 02 XX Last administered on 08/13/17 01: 24; Admin Dose 1 EA; Start 08/12/17 at 02:00 Miscellaneous Information 1 ea NOTE XX ; Start 08/11/17 at 16:00 Glucose (Glutose) 15 gm Q15M PRN PO DECREASED GLUCOSE; Start 08/11/17 at 16:00 Glucose (Glutose) 22.5 gm Q15M PRN PO DECREASED GLUCOSE; Start 08/11/17 at 16: 00 Dextrose (D50w Syringe) 25 ml Q15M PRN IV DECREASED GLUCOSE Last administered on 08/13/17 01:39; Admin Dose 25 ML; Start 08/11/17 at 16:00 Dextrose (D50w Syringe) 50 ml Q15M PRN IV DECREASED GLUCOSE; Start 08/11/17 at 16:00 Glucagon (Glucagen) 1 mg Q15M PRN IM DECREASED GLUCOSE; Start 08/11/17 at 16:00 Glucose (Glutose) 15 gm Q15M PRN BUCCAL DECREASED GLUCOSE; Start 08/11/17 at 16 :00 Miscellaneous Information (Pending Santyl Order For Wound Care) This patient reyes... PRN PRN XX WOUND CARE; Start 08/11/17 at 22:00 Digoxin 0.125 mg 0.125 mg Q2D GTB Last administered on 08/12/17 13:43; Admin Dose 0.125 MG; Start 08/12/17 at 13:00 Norepinephrine (Levophed) 250 ml @ 1.875 mls/ hr TITRATE IV Last administered on 08/12/17 03:29; Admin Dose 15 MLS/HR; Start 08/12/17 at 03:00 Collagenase 1 applic 1 applic DAILY TOP Last administered on 08/13/17t 10:00; Admin Dose 1 APPLIC; Start 08/12/17 at 09:00 Vancomycin HCl (Vancocin) 250 ml @ 125 mls/hr Q96H IVPB ; Start 08/15/17 at 10: 00 Mupirocin (Bactroban) 1 applic BID TOP Last administered on 08/13/17 12:39; Admin Dose 1 APPLIC; Start 08/13/17 at 12:30 Assessment/Plan Chief Complaint/Hosp Course 1. Septic shock 2. Afib: persistent now and unable to anticoagulate due to concerns about bleeding and anemia. 3. CAD: Currently with no angina 4. renal failure 5. pneumonia 6. severe anemia . 7. hx GI bleed 8. dyslipidemia 9. hypoxemic resp failure: s/p trach on vent 10. DM; on insulin Recommendation: unable to anticoagulate due to bleeding risk not on ASA due to above. cont vent support and trach care. diuresis as tolerated. will defer to renal team. ? need for HD if does not respond. cont insulin check lipid panel Thank you. DIOR JEFFERSON MD FAC Problems: DIOR JEFFERSON MD Aug 13, 2017 14:50
[2017-08-14] VITALS (32 sets, daily range): BP systolic 82–112; BP diastolic 50–78; PULSE 62–80; RESP 18–25
[2017-08-14] MEDS: ACCU-CHEK XX SCH (01:16)
[2017-08-14 05:31] LABS: ABNORMAL IP MESSAGE 1; BASOPHILS % 0.4 % (0.0-2.0); EOSINOPHILS # 0.4 10^3/ul (0.0-0.5); EOSINOPHILS % 4.7 % (0.0-7.0); HEMATOCRIT 27.4 % (42.0-52.0); HEMOGLOBIN 8.9 g/dl (14.0-18.0); LYMPHOCYTES # 0.4 10^3/ul (0.8-2.9); LYMPHOCYTES % 4.5 % (15.0-51.0); MEAN CORPUSCULAR HGB CONC 32.5 g/dl (32.0-37.0); MEAN CORPUSCULAR VOLUME 98.6 fl (82.0-101.0); MEAN PLATELET VOLUME 12.9 fl (7.4-10.4); MONOCYTE # 0.7 10^3/ul (0.3-0.9); MONOCYTES % 8.4 % (0.0-11.0); NEUTROPHIL # 6.8 10^3/ul (1.6-7.5); NEUTROPHILS % 80.6 % (39.0-77.0); NUCLEATED RED BLOOD CELLS% 0.2 /100WBC (0.0-0.0); PLATELET COUNT 120 10^3/UL (140-415); POSITIVE DIFF @See below; RED BLOOD COUNT 2.78 10^6/ul (4.70-6.10); RED CELL DISTRIBUTION WIDTH 20.7 % (11.5-14.5); WHITE BLOOD COUNT 8.4 10^3/ul (4.8-10.8)
[2017-08-14 05:52] LABS: CALCIUM 7.9 mg/dl (8.4-10.2); CREATININE 2.69 mg/dl (0.61-1.24); MAGNESIUM 2.8 mg/dl (1.7-2.5); PHOSPHORUS 6.5 mg/dl (2.5-4.9); POTASSIUM 4.5 mmol/L (3.5-5.1)
--- NOTE | 2017-08-14 07:34 | PN ---
DATE: 08/14/2017 SUBJECTIVE DATA: The patient remains critically ill. The patient is currently off pressor support. Was receiving diuretic therapy with marginal response of 700 cc. No other events noted. No hemoptysis, hematemesis, hematochezia. OBJECTIVE DATA: VITAL SIGNS: Blood pressure is 91/57, respiration is 23, pulse 69, temperature 98.6. I's and O's reviewed. HEENT: Head is normocephalic. NECK: Supple. HEART: Regular rate. LUNGS: Show diminished breath sounds at the base. ABDOMEN: Soft, nontender to palpation. No rebound or guarding. EXTREMITIES: Negative for clubbing, cyanosis. Positive edema, diffuse anasarca. DERMATOLOGIC: Clean. No rashes. MUSCULOSKELETAL: No joint effusion. NEUROLOGIC: No change in exam. MEDICATIONS: Reviewed. LABORATORY AND DIAGNOSTIC DATA: Shows a white count 8.4, hemoglobin 8.9, crit 27.4, platelet count 120. Sodium 134, potassium 4.5, chloride 108, BUN 132, creatinine 2.62, phosphorus 6.5, magnesium 2.8. The patient's cultures were reviewed. ASSESSMENT AND PLAN: 1. Septic shock. Etiology secondary to healthcare-associated pneumonia and bacteremia. The patient's cultures were positive. At this point, the patient is being weaned off pressor support. We will continue current antibiotic regimen. Follow up with of Infectious Disease. Monitor closely. 2. Ventilator dependent respiratory failure. Vent settings and ABGs reviewed. Continue to monitor. 3. Nonoliguric acute kidney injury on top of chronic kidney disease, stage 5. Etiology of acute kidney injury secondary to acute tubular necrosis. The patient's renal function has not shown significant improvement. The patient has progressive azotemia. We will discuss with the patient's again about possibly initiating hemodialysis. The patient's has been reticent to start dialysis. 4. Diffuse anasarca volume overload. Continue diuretic regimen. We will diuretic therapy. 5. Anemia. Monitor H and H levels. 6. Mineral bone disorder. Monitor calcium and phosphorus levels. 7. [id number] encephalopathy. Etiology toxic metabolic. 8. Decubitus wound. Continue wound care. 9. Dysphagia, status post percutaneous endoscopic gastrostomy. Continue tube feeding. 10. Encephalopathy and chronic dementia. Etiology toxic metabolic. Continue to monitor. 11. Sinus arrhythmia. Follow up with Cardiology. 12. Hyponatremia. Continue to monitor. 13. Gastrointestinal and deep venous thrombosis prophylaxis. Please note, I spent over 30 minutes of critical care time with this patient. Dictated By: Charles Gong DO /ruben/mila /Document#: [id number]
[2017-08-14] MEDS: INSULIN ASPART [NOVOLOG] 3 ML PEN SC SCH ×4 (07:35→22:15)
[2017-08-14] MEDS: FERROUS SULFATE 60 MG/ML 5ML CUP GTB SCH (08:30)
[2017-08-14] MEDS: FUROSEMIDE 40 MG INJ IV SCH ×2 (08:30→18:40)
[2017-08-14] MEDS: FLUCONAZOLE 100 MG TAB GTB SCH (08:31)
[2017-08-14] MEDS: MUPIROCIN 2% 22 GM OINT TOP SCH ×2 (08:31→21:58)
[2017-08-14] MEDS: LACTOBACILLUS RHAMNOSUS CAP GTB SCH ×2 (08:31→21:58)
[2017-08-14] MEDS: ASCORBIC ACID 500 MG TAB GTB SCH (08:31)
[2017-08-14] MEDS: MULTIVITAMINS THERAPEUTIC TAB GTB SCH (08:31)
[2017-08-14] MEDS: CHOLECALCIFEROL 2,000 UNIT CAP GTB SCH (08:31)
[2017-08-14] MEDS: FOLIC ACID 1 MG TAB GTB SCH (08:31)
[2017-08-14] MEDS: COLLAGENASE 30 GM TUBE TOP SCH (08:31)
--- NOTE | 2017-08-14 09:16 | CONS ---
Date/Time of Note Date/Time of Note DATE: 08/14/17 TIME: 09:14 Consult Date/Type/Reason Admit Date/Time Aug 11, 2017 at 12:54 Initial Consult Date 08/11/17 Type of Consultation: CARDIOLOGY Subjective CARDIOLOGY FOLLOW UP NOTE: S: Discussed with the staff and Rhythm strip was reviewed. Patient remains in atrial fibrillation. Heart rate has been under good control. He is still on the vent status post tracheostomy. Patient denies any chest pain or pressure or palpitation to me. no bleeding is reported. Objective: General: Thin man. s/p trach on vent HEENT: NC/AT. pupils are equal. round. NECK: s/p trach. . no stridor. CV: irregularly irregular. systolic murmur; no gallop or rubs. PULM: + diffuse rhonchi. no wheezing . GI: SOFT, NT, ND, no rebound or guarding s/p; PEG. Extremity: Diffuse 3+ B/L LE edema. no clubbing. neuro: awake and alert responds appropriately Psych: calm and pleasant rectal: deferred : normal male. s/p reynolds in place. ECHO Conclusions 1. Normal left ventricular systolic function. Normal left ventricular cavity size. Moderate concentric left ventricular hypertrophy. Ejection fraction is visually estimated at 65 %. Abnormal Diastolic Function. 2. Aortic sclerosis without stenosis. Electronically Signed By: Juan M Bender 12-Aug-2017 12:11:31 -0700 Objective Vital Signs Date Time Temp Pulse Resp B/P Pulse Ox O2 Delivery O2 Flow Rate FiO2 08/14/17 08:00 72 08/14/17 05:15 22 100 50 08/14/17 01:00 91/57 08/13/17 20:00 98.5 08/13/17 18:00 Mechanical Ventilator Intake and Output 08/13/17 08/13/17 08/14/17 15:00 23:00 07:00 Intake Total 580 ml 120 ml 500 ml Output Total 270 ml 140 ml 300 ml Balance 310 ml -20 ml 200 ml Results/Medications Result Diagram: 08/14/17 0502 08/14/17 0502 Results 24 hrs Laboratory Tests Test 08/13/17 12:31 08/13/17 17:26 08/13/17 20:52 08/14/17 05:02 Bedside Glucose 91 107 92 White Blood Count 8.4 Red Blood Count 2.78 L Hemoglobin 8.9 L Hematocrit 27.4 L Mean Corpuscular Volume 98.6 Mean Corpuscular Hemoglobin 32.0 Mean Corpuscular Hemoglobin Concent 32.5 Red Cell Distribution Width 20.7 H Platelet Count 120 L Mean Platelet Volume 12.9 H Neutrophils % 80.6 H Lymphocytes % 4.5 L Monocytes % 8.4 Eosinophils % 4.7 Basophils % 0.4 Nucleated Red Blood Cells % 0.2 H Neutrophils # 6.8 Lymphocytes # 0.4 L Monocytes # 0.7 Eosinophils # 0.4 Basophils # 0.0 Nucleated Red Blood Cells # 0.0 Sodium Level 134 L Potassium Level 4.5 Chloride Level 108 Carbon Dioxide Level 21 Anion Gap 10 # Blood Urea Nitrogen 132 H Creatinine 2.69 H Glucose Level 100 Calcium Level 7.9 L Phosphorus Level 6.5 H Magnesium Level 2.8 H Test 08/14/17 08:19 Bedside Glucose 113 Medications Current Medications Ascorbic Acid (Vitamin C) 500 mg DAILY GTB Last administered on 08/14/17 08: ; Admin Dose 500 MG; Start 08/12/17 at 09:00 Cholecalciferol (Vitamin D) 2,000 unit DAILY GTB Last administered on 08:; Admin Dose 2,000 UNIT; Start 08/12/17 at 09:00 Ferrous Sulfate (Feosol Liquid Cup) 330 mg DAILY GTB Last administered on 08:30; Admin Dose 330 MG; Start 08/12/17 at 09:00 Fluconazole (Diflucan) 100 mg DAILY GTB Last administered on 08/14/17 08:; Admin Dose 100 MG; Start 08/12/17 at 09:00 Folic Acid (Folic Acid) 1 mg DAILY GTB Last administered on 08/14/17 08:; Admin Dose 1 MG; Start 08/12/17 at 09:00 Lactobacillus Acidophilus/ Rhamnosus (Culturelle) 1 cap BID GTB Last administered on 08/14/17 08:; Admin Dose 1 CAP; Start 08/11/17 at 21:00 Multivitamins Therapeutic 1 tab 1 tab DAILY GTB Last administered on 08/14/17 08:; Admin Dose 1 TAB; Start 08/12/17 at 09:00 Cefepime HCl (Maxipime 1gm/50 ml (Pmx)) 50 ml @ 100 mls/hr Q24H IVPB Last administered on 08/13/17 09:10; Admin Dose 100 MLS/HR; Start 08/12/17 at 10:00 Diagnostic Test (Pha) (Accu-Chek) 1 ea 02 XX Last administered on 08/13/17 01: 24; Admin Dose 1 EA; Start 08/12/17 at 02:00 Miscellaneous Information 1 ea NOTE XX ; Start 08/11/17 at 16:00 Glucose (Glutose) 15 gm Q15M PRN PO DECREASED GLUCOSE; Start 08/11/17 at 16:00 Glucose (Glutose) 22.5 gm Q15M PRN PO DECREASED GLUCOSE; Start 08/11/17 at 16: 00 Dextrose (D50w Syringe) 25 ml Q15M PRN IV DECREASED GLUCOSE Last administered on 08/13/17 01:39; Admin Dose 25 ML; Start 08/11/17 at 16:00 Dextrose (D50w Syringe) 50 ml Q15M PRN IV DECREASED GLUCOSE; Start 08/11/17 at 16:00 Glucagon (Glucagen) 1 mg Q15M PRN IM DECREASED GLUCOSE; Start 08/11/17 at 16:00 Glucose (Glutose) 15 gm Q15M PRN BUCCAL DECREASED GLUCOSE; Start 08/11/17 at 16 :00 Miscellaneous Information (Pending [facility] Order For Wound Care) This patient reyes... PRN PRN XX WOUND CARE; Start 08/11/17 at 22:00 Digoxin 0.125 mg 0.125 mg Q2D GTB Last administered on 08/12/17 13:43; Admin Dose 0.125 MG; Start 08/12/17 at 13:00 Norepinephrine (Levophed) 250 ml @ 1.875 mls/ hr TITRATE IV Last administered on 08/12/17 03:29; Admin Dose 15 MLS/HR; Start 08/12/17 at 03:00 Collagenase 1 applic 1 applic DAILY TOP Last administered on 08/14/17 08:31; Admin Dose 1 APPLIC; Start 08/12/17 at 09:00 Vancomycin HCl (Vancocin) 250 ml @ 125 mls/hr Q96H IVPB ; Start 08/15/17 at 10: 00 Mupirocin (Bactroban) 1 applic BID TOP Last administered on 08/14/17t 08:31; Admin Dose 1 APPLIC; Start 08/13/17 at 12:30 Assessment/Plan Chief Complaint/Hosp Course 1. Septic shock: BP is better now. 2. Afib: persistent now and unable to anticoagulate due to concerns about bleeding and anemia. 3. CAD: Currently with no active angina 4. renal failure 5. pneumonia 6. severe anemia . 7. hx GI bleed 8. dyslipidemia 9. hypoxemic resp failure: s/p trach on vent 10. DM; on insulin Recommendation: unable to anticoagulate due to bleeding risk not on ASA due to above. cont vent support and trach care. diuresis as tolerated. will defer to renal team given his renal failure. ? need for HD if does not respond. cont insulin Thank you. DIOR JEFFERSON MD [facility] Problems: DIRO JEFFERSON MD Aug 14, 2017 09:16
[2017-08-14] MEDS: CEFEPIME 1GM/50 ML (PMX) 50 ML IVPB SCH (09:24)
--- NOTE | 2017-08-14 11:18 | CONS ---
Date/Time of Note Date/Time of Note DATE: 08/14/17 TIME: 11:15 Assessment/Plan Assessment/Plan Additional Assessment/Plan Ventilator setting; AC of 22, tidal volume 500, PEEP of 5, 40% FiO2. Assessment and recommendations; 1. Patient with a history of chronic respiratory failure which is ventilator dependent admitted for bilateral pneumonia. Currently on appropriate antibiotic regimen. 2. Congestive heart failure. 3. Advanced dementia. 4. Acute renal insufficiency with gradual improvement in serum creatinine. 5. Anemia and thrombocytopenia. Continue current supportive care. Overall prognosis remains poor. Consultation Date/Type/Reason Admit Date/Time Aug 11, 2017 at 12:54 Initial Consult Date 08/11/17 Type of Consultation: Pulmonary/critical care 24 HR Interval Summary Free Text/Dictation Patient's condition remains critical but stable. Remains chronically ventilator dependent. Patient however has been off pressor support. And has been hemodynamically stable. General exam; elderly male, on ventilator via tracheostomy, awake but does not follow any commands. Exam/Review of Systems Vital Signs Vitals Vital Signs Date Time Temp Pulse Resp B/P Pulse Ox O2 Delivery O2 Flow Rate FiO2 08/14/17 10:00 40 08/14/17 10:00 69 22 96/66 100 Mechanical Ventilator 08/14/17 08:00 98.5 Intake and Output 08/13/17 08/13/17 08/14/17 15:00 23:00 07:00 Intake Total 580 ml 120 ml 540 ml Output Total 270 ml 140 ml 340 ml Balance 310 ml -20 ml 200 ml Exam HEENT exam; supple neck, positive JVD. No lymphadenopathy. Midline trachea. No thyromegaly. Tracheostomy in place. Patient is edentulous. Chest exam; scattered bilateral crackles. S1-S2 audible, no murmurs. Regular rhythm. Abdomen exam; soft, no organomegaly. G-tube in place. Bowel sounds audible. Extremity exam; no peripheral edema. 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 Results Result Diagram: 08/14/17 0502 08/14/17 0502 Results 24 hrs Laboratory Tests Test 08/13/17 12:31 08/13/17 17:26 08/13/17 20:52 08/14/17 05:02 Bedside Glucose 91 107 92 White Blood Count 8.4 Red Blood Count 2.78 L Hemoglobin 8.9 L Hematocrit 27.4 L Mean Corpuscular Volume 98.6 Mean Corpuscular Hemoglobin 32.0 Mean Corpuscular Hemoglobin Concent 32.5 Red Cell Distribution Width 20.7 H Platelet Count 120 L Mean Platelet Volume 12.9 H Neutrophils % 80.6 H Lymphocytes % 4.5 L Monocytes % 8.4 Eosinophils % 4.7 Basophils % 0.4 Nucleated Red Blood Cells % 0.2 H Neutrophils # 6.8 Lymphocytes # 0.4 L Monocytes # 0.7 Eosinophils # 0.4 Basophils # 0.0 Nucleated Red Blood Cells # 0.0 Sodium Level 134 L Potassium Level 4.5 Chloride Level 108 Carbon Dioxide Level 21 Anion Gap 10 # Blood Urea Nitrogen 132 H Creatinine 2.69 H Glucose Level 100 Calcium Level 7.9 L Phosphorus Level 6.5 H Magnesium Level 2.8 H Test 08/14/17 08:19 Bedside Glucose 113 Medications Medications Current Medications Ascorbic Acid (Vitamin C) 500 mg DAILY GTB Last administered on 08/14/17 08: ; Admin Dose 500 MG; Start 08/12/17 at 09:00 Cholecalciferol (Vitamin D) 2,000 unit DAILY GTB Last administered on 08:; Admin Dose 2,000 UNIT; Start 08/12/17 at 09:00 Ferrous Sulfate (Feosol Liquid Cup) 330 mg DAILY GTB Last administered on 08:30; Admin Dose 330 MG; Start 08/12/17 at 09:00 Fluconazole (Diflucan) 100 mg DAILY GTB Last administered on 08/14/17 08:; Admin Dose 100 MG; Start 08/12/17 at 09:00 Folic Acid (Folic Acid) 1 mg DAILY GTB Last administered on 08/14/17 08:; Admin Dose 1 MG; Start 08/12/17 at 09:00 Lactobacillus Acidophilus/ Rhamnosus (Culturelle) 1 cap BID GTB Last administered on 08/14/17 08:; Admin Dose 1 CAP; Start 08/11/17 at 21:00 Multivitamins Therapeutic 1 tab 1 tab DAILY GTB Last administered on 08/14/17 08:31; Admin Dose 1 TAB; Start 08/12/17 at 09:00 Cefepime HCl (Maxipime 1gm/50 ml (Pmx)) 50 ml @ 100 mls/hr Q24H IVPB Last administered on 08/14/17 09:24; Admin Dose 100 MLS/HR; Start 08/12/17 at 10:00 Diagnostic Test (Pha) (Accu-Chek) 1 ea 02 XX Last administered on 08/13/17 01: 24; Admin Dose 1 EA; Start 08/12/17 at 02:00 Miscellaneous Information 1 ea NOTE XX ; Start 08/11/17 at 16:00 Glucose (Glutose) 15 gm Q15M PRN PO DECREASED GLUCOSE; Start 08/11/17 at 16:00 Glucose (Glutose) 22.5 gm Q15M PRN PO DECREASED GLUCOSE; Start 08/11/17 at 16: 00 Dextrose (D50w Syringe) 25 ml Q15M PRN IV DECREASED GLUCOSE Last administered on 08/13/17 01:39; Admin Dose 25 ML; Start 08/11/17 at 16:00 Dextrose (D50w Syringe) 50 ml Q15M PRN IV DECREASED GLUCOSE; Start 08/11/17 at 16:00 Glucagon (Glucagen) 1 mg Q15M PRN IM DECREASED GLUCOSE; Start 08/11/17 at 16:00 Glucose (Glutose) 15 gm Q15M PRN BUCCAL DECREASED GLUCOSE; Start 08/11/17 at 16 :00 Miscellaneous Information (Pending [facility] Order For Wound Care) This patient reyes... PRN PRN XX WOUND CARE; Start 08/11/17 at 22:00 Digoxin 0.125 mg 0.125 mg Q2D GTB Last administered on 08/12/17 13:43; Admin Dose 0.125 MG; Start 08/12/17 at 13:00 Norepinephrine (Levophed) 250 ml @ 1.875 mls/ hr TITRATE IV Last administered on 08/12/17 03:29; Admin Dose 15 MLS/HR; Start 08/12/17 at 03:00 Collagenase 1 applic 1 applic DAILY TOP Last administered on 08/14/17 08:31; Admin Dose 1 APPLIC; Start 08/12/17 at 09:00 Vancomycin HCl (Vancocin) 250 ml @ 125 mls/hr Q96H IVPB ; Start 08/15/17 at 10: 00 Mupirocin (Bactroban) 1 applic BID TOP Last administered on 08/14/17 08:31; Admin Dose 1 APPLIC; Start 08/13/17 at 12:30 DAKOTA SHELLEY Aug 14, 2017 11:18
--- NOTE | 2017-08-14 12:14 | PN ---
DATE: 08/14/2017 SUBJECTIVE DATA: No acute events overnight. The patient is alert, denies pain, looks comfortable. No fevers. Temperature 98.5, pulse 74, respirations 20, blood pressure 103/55, saturation 100 on vent. LABORATORY AND DIAGNOSTIC DATA: WBC 8.4, H and H 8.9 and 27.4, platelets 120, neutrophils 80.6, BUN 132, creatinine 2.69. MICROBIOLOGY: Blood culture grew coag-negative Staph species. Urine culture grew Pseudomonas aeruginosa, susceptible to Fortaz and Zosyn, also tobramycin nares swab came back positive for MRSA. INDWELLINGS: Trach, PEG, Pathak and midline. ANTIMICROBIALS: 1. Vancomycin 2. Cefepime. 3. Topical Bactroban to nares. 4. Fluconazole. PHYSICAL EXAMINATION: This is a fragile, chronically ill- appearing, elderly man, who is in no distress. HEENT: Head atraumatic, normocephalic. Sclerae anicteric. Buccal mucosa dry. NECK: Supple. CHEST: Chest rise symmetrical. Breath sounds clear. Diminished at the bases. HEART: S1, S2. ABDOMEN: Soft, bowel sounds present. EXTREMITIES: Without cyanosis. SKIN: No jaundice. No cyanosis. Positive for severe anasarca and pannus scrotal edema. ASSESSMENT: 1. Resolving sepsis status post shock. 2. Multidrug resistant Pseudomonas aeruginosa, urinary tract infection. 3. Coag-negative Staph bacteremia, likely contaminant. 4. Methicillin-resistant Staphylococcus aureus nares colonization. 5. Acute on chronic kidney disease. 6. Unstageable sacral wound. 7. Severe anasarca. 8. Congestive heart failure. 9. Atrial fibrillation. 10. Cachexia. PLAN: We are going to discontinue vancomycin. Start the patient on doxycycline or Synercid. Change cefepime to Fortaz. Repeat blood cultures. Continue local wound care as per surgery. Follow recommendations of consultants. Dictated By: Gm Addison NP /ruben/ /Document#: [id number]
[2017-08-14] MEDS: DOXYCYCLINE 100 MG in SOD CHLORIDE 0.9% 250 ML IVPB SCH ×2 (13:00→21:58)
[2017-08-14] MEDS: DIGOXIN 0.125 MG TAB GTB SCH (13:17)
[2017-08-14] MEDS: CEFTAZIDIME 1GM/50 ML (PMX) 50 ML IVPB SCH (13:22)
[2017-08-15] VITALS (27 sets, daily range): BP systolic 100–133; BP diastolic 49–91; PULSE 63–83; RESP 20–29
[2017-08-15] MEDS: ACCU-CHEK XX SCH (02:00)
[2017-08-15 05:26] LABS: ABNORMAL IP MESSAGE 1; BASOPHILS % 0.2 % (0.0-2.0); EOSINOPHILS # 0.4 10^3/ul (0.0-0.5); EOSINOPHILS % 4.9 % (0.0-7.0); HEMATOCRIT 23.7 % (42.0-52.0); HEMOGLOBIN 7.6 g/dl (14.0-18.0); LYMPHOCYTES # 0.5 10^3/ul (0.8-2.9); LYMPHOCYTES % 5.9 % (15.0-51.0); MEAN CORPUSCULAR HEMOGLOBIN 31.4 pg (29.0-33.0); MEAN CORPUSCULAR HGB CONC 32.1 g/dl (32.0-37.0); MEAN CORPUSCULAR VOLUME 97.9 fl (82.0-101.0); MEAN PLATELET VOLUME 13.6 fl (7.4-10.4); MONOCYTE # 0.6 10^3/ul (0.3-0.9); NEUTROPHIL # 6.5 10^3/ul (1.6-7.5); NEUTROPHILS % 80.6 % (39.0-77.0); PLATELET COUNT 126 10^3/UL (140-415); POSITIVE DIFF @See below; RED BLOOD COUNT 2.42 10^6/ul (4.70-6.10); RED CELL DISTRIBUTION WIDTH 21.2 % (11.5-14.5); WHITE BLOOD COUNT 8.1 10^3/ul (4.8-10.8)
[2017-08-15] MEDS: FUROSEMIDE 40 MG INJ IV SCH (06:05)
[2017-08-15 07:14] LABS: CALCIUM 7.8 mg/dl (8.4-10.2); CREATININE 2.39 mg/dl (0.61-1.24); MAGNESIUM 2.8 mg/dl (1.7-2.5); PHOSPHORUS 6.2 mg/dl (2.5-4.9); POTASSIUM 4.8 mmol/L (3.5-5.1)
[2017-08-15 07:15] LABS: CHOL/HDL RATIO 4.1 RATIO
[2017-08-15] MEDS: INSULIN ASPART [NOVOLOG] 3 ML PEN SC SCH ×3 (07:35→17:35)
[2017-08-15 07:49] LABS: IRON 61 ug/dl (35-150)
[2017-08-15 07:58] LABS: TOTAL IRON BINDING CAPACITY 149 ug/dl (241-421)
--- NOTE | 2017-08-15 08:05 | CONS ---
Date/Time of Note Date/Time of Note DATE: 08/15/17 TIME: 08:03 Consult Date/Type/Reason Admit Date/Time Aug 11, 2017 at 12:54 Initial Consult Date 08/11/17 Type of Consultation: cardiology Subjective CARDIOLOGY FOLLOW UP NOTE: S: Discussed with the staff and Rhythm strip was reviewed. Patient remains in atrial fibrillation. Heart rate has been under good control. He is still on the vent status post tracheostomy and on vent. Patient denies any chest pain or pressure or palpitation to me. no bleeding is reported. Objective: General: Thin man. s/p trach on vent HEENT: NC/AT. pupils are equal. round. NECK: s/p trach. . no stridor. CV: irregularly irregular. systolic murmur; no gallop or rubs. PULM: + diffuse rhonchi. no wheezing . GI: SOFT, NT, ND, no rebound or guarding s/p; PEG. Extremity: Diffuse 3+ B/L LE edema. no clubbing. neuro: awake and alert responds appropriately Psych: calm and pleasant rectal: deferred : normal male. s/p reynolds in place. ECHO Conclusions 1. Normal left ventricular systolic function. Normal left ventricular cavity size. Moderate concentric left ventricular hypertrophy. Ejection fraction is visually estimated at 65 %. Abnormal Diastolic Function. 2. Aortic sclerosis without stenosis. Electronically Signed By: Juan M Bender 12-Aug-2017 12:11:31 -0700 Objective Vital Signs Date Time Temp Pulse Resp B/P Pulse Ox O2 Delivery O2 Flow Rate FiO2 08/15/17 07:50 70 26 100 40 08/15/17 07:00 114/78 Mechanical Ventilator 08/15/17 04:00 98.5 Intake and Output 08/14/17 08/14/17 08/15/17 15:00 23:00 07:00 Intake Total 760 ml 610 ml 320 ml Output Total 600 ml 630 ml 490 ml Balance 160 ml -20 ml -170 ml Results/Medications Result Diagram: 08/15/17 0440 08/15/17 0440 Results 24 hrs Laboratory Tests Test 08/14/17 08:19 08/14/17 12:16 08/14/17 18:39 08/14/17 22:14 Bedside Glucose 113 118 121 111 Test 08/15/17 04:40 08/15/17 06:21 White Blood Count 8.1 Red Blood Count 2.42 L Hemoglobin 7.6 L Hematocrit 23.7 L Mean Corpuscular Volume 97.9 Mean Corpuscular Hemoglobin 31.4 Mean Corpuscular Hemoglobin Concent 32.1 Red Cell Distribution Width 21.2 H Platelet Count 126 L Mean Platelet Volume 13.6 H Neutrophils % 80.6 H Lymphocytes % 5.9 L Monocytes % 7.0 Eosinophils % 4.9 Basophils % 0.2 Nucleated Red Blood Cells % 0.0 Neutrophils # 6.5 Lymphocytes # 0.5 L Monocytes # 0.6 Eosinophils # 0.4 Basophils # 0.0 Nucleated Red Blood Cells # 0.0 Sodium Level 134 L Potassium Level 4.8 Chloride Level 107 Carbon Dioxide Level 21 Anion Gap 11 Blood Urea Nitrogen 137 H Creatinine 2.39 H Glucose Level 102 Calcium Level 7.8 L Phosphorus Level 6.2 H Magnesium Level 2.8 H Triglycerides Level 53 Cholesterol Level 54 L LDL Cholesterol, Calculated 30 HDL Cholesterol 13 L Cholesterol/HDL Ratio 4.1 Iron Level 61 Total Iron Binding Capacity 149 L Percent Iron Saturation 41 Medications Current Medications Ascorbic Acid (Vitamin C) 500 mg DAILY GTB Last administered on 08/14/17 08:31 ; Admin Dose 500 MG; Start 08/12/17 at 09:00 Cholecalciferol (Vitamin D) 2,000 unit DAILY GTB Last administered on 08:31; Admin Dose 2,000 UNIT; Start 08/12/17 at 09:00 Ferrous Sulfate (Feosol Liquid Cup) 330 mg DAILY GTB Last administered on 08:30; Admin Dose 330 MG; Start 08/12/17 at 09:00 Fluconazole (Diflucan) 100 mg DAILY GTB Last administered on 08/14/17 08:31; Admin Dose 100 MG; Start 08/12/17 at 09:00 Folic Acid (Folic Acid) 1 mg DAILY GTB Last administered on 08/14/17 08:31; Admin Dose 1 MG; Start 08/12/17 at 09:00 Lactobacillus Acidophilus/ Rhamnosus (Culturelle) 1 cap BID GTB Last administered on 08/14/17 21:58; Admin Dose 1 CAP; Start 08/11/17 at 21:00 Multivitamins Therapeutic (Theragran) 1 tab DAILY GTB Last administered on 08/14 08:31; Admin Dose 1 TAB; Start 08/12/17 at 09:00 Diagnostic Test (Pha) (Accu-Chek) 1 ea 02 XX Last administered on 08/13/17 01: 24; Admin Dose 1 EA; Start 08/12/17 at 02:00 Miscellaneous Information 1 ea NOTE XX ; Start 08/11/17 at 16:00 Glucose (Glutose) 15 gm Q15M PRN PO DECREASED GLUCOSE; Start 08/11/17 at 16:00 Glucose (Glutose) 22.5 gm Q15M PRN PO DECREASED GLUCOSE; Start 08/11/17 at 16: 00 Dextrose (D50w Syringe) 25 ml Q15M PRN IV DECREASED GLUCOSE Last administered on 08/13/17 01:39; Admin Dose 25 ML; Start 08/11/17 at 16:00 Dextrose (D50w Syringe) 50 ml Q15M PRN IV DECREASED GLUCOSE; Start 08/11/17 at 16:00 Glucagon (Glucagen) 1 mg Q15M PRN IM DECREASED GLUCOSE; Start 08/11/17 at 16:00 Glucose (Glutose) 15 gm Q15M PRN BUCCAL DECREASED GLUCOSE; Start 08/11/17 at 16 :00 Miscellaneous Information (Pending Santyl Order For Wound Care) This patient reyes... PRN PRN XX WOUND CARE; Start 08/11/17 at 22:00 Digoxin (Digoxin) 0.125 mg Q2D GTB Last administered on 08/14/17 13:17; Admin Dose 0.125 MG; Start 08/12/17 at 13:00 Collagenase (Santyl) 1 applic DAILY TOP Last administered on 08/14/17 08:31; Admin Dose 1 APPLIC; Start 08/12/17 at 09:00 Mupirocin 1 applic 1 applic BID TOP Last administered on 08/14/17 21:58; Admin Dose 1 APPLIC; Start 08/13/17 at 12:30 Doxycycline Hyclate 100 mg/ Sodium Chloride 250 ml @ 250 mls/hr Q12 IVPB Last administered on 08/14/17 21:58; Admin Dose 250 MLS/HR; Start 08/14/17 at 13:00 Ceftazidime (Fortaz 1gm/50 ml (Pmx)) 50 ml @ 100 mls/hr Q24H IVPB Last administered on 08/14/17t 13:22; Admin Dose 100 MLS/HR; Start 08/14/17 at 13:00 Furosemide (Lasix) 40 mg Q8 IV ; Start 08/15/17 at 14:00 Epoetin Lobito (Epogen (Esrd)) 10,000 units MoWeFr@17 SC ; Start 08/15/17 at 17:00 Assessment/Plan Chief Complaint/Hosp Course 1. Septic shock: BP is better now. 2. Afib: persistent now and unable to anticoagulate due to concerns about bleeding and anemia. 3. CAD: Currently with no active angina 4. renal failure 5. pneumonia 6. severe anemia . 7. hx GI bleed 8. dyslipidemia 9. hypoxemic resp failure: s/p trach on vent 10. DM; on insulin 11. coag neg staph bacteremia. Recommendation: unable to anticoagulate due to bleeding risk not on ASA due to above. cont vent support and trach care. diuresis as tolerated. will defer to renal team given his renal failure. may need HD if does not respond. cont insulin abx as per IM/ ID rec. Thank you. DIOR JEFFERSON MD [facility] Problems: DIOR JEFFERSON MD Aug 15, 2017 08:05
--- NOTE | 2017-08-15 08:29 | PN ---
DATE: 08/15/2017 SUBJECTIVE DATA: The patient is stable, in serious condition. No other events noted. The patient is making good urinary output. OBJECTIVE DATA: VITAL SIGNS: Blood pressure is 117/60, respirations 20, pulse 76, temperature 98.5. I's and O's: 1700 in, 1700 out. HEENT: Head is normocephalic. NECK: Supple. HEART: Regular rate. LUNGS: Show diminished breath sounds at the base. ABDOMEN: Soft, nontender to palpation. No rebound or guarding. EXTREMITIES: Negative for clubbing, cyanosis. Positive edema. Diffuse anasarca. DERMATOLOGIC: Clean. No rashes. MUSCULOSKELETAL: No joint effusion. NEUROLOGIC: Unchanged exam. MEDICATIONS: Reviewed. LABORATORY AND DIAGNOSTIC DATA: Shows sodium 134, potassium 4.5, chloride 108, bicarb 21, BUN 132, creatinine 2.69. White count 8.1, hemoglobin 7.6, crit of 23.7, platelet count is 126. ASSESSMENT AND PLAN: 1. Sepsis, status post shock. Etiology secondary to healthcare- associated pneumonia and bacteremia. The patient is currently off pressor support. We will continue current antibiotic regimen. Follow up with Infectious Disease. 2. Ventilatory-dependent respiratory failure. Vent settings and ABGs reviewed. Continue to monitor. 3. Nonoliguric acute kidney injury on top of chronic kidney disease, stage 5. Etiology is secondary to acute tubular necrosis. Renal function has fluctuated but no significant improvement, as patient has a progressive azotemia and diffuse anasarca. I discussed in detail with the patient's about initiating dialysis. She has been reticent to start. We will talk again with the patient's family and . 4. Diffuse anasarca. Continue diuretic regimen. 5. Anemia. Hemoglobin levels are low. We will give the patient Epogen. Monitor H and H levels. Check an iron panel. 6. Mineral bone disorder. Monitor calcium and phosphorus levels. 7. [id number] encephalopathy. Etiology toxic metabolic. 8. Decubitus wound. Continue wound care. 9. Dysphagia, status post percutaneous endoscopic gastrostomy. Continue tube feeding. 10. Encephalopathy and chronic dementia. Etiology is toxic metabolic. Continue to monitor. 11. Sinus arrhythmia. Follow up with Cardiology. 12. Hyponatremia, improving. Continue to monitor. 13. Gastrointestinal and deep venous thrombosis prophylaxis. Dictated By: Charles Gong DO /ruben/mila /Document#: [id number]
[2017-08-15] MEDS: FERROUS SULFATE 60 MG/ML 5ML CUP GTB SCH (08:54)
[2017-08-15] MEDS: FLUCONAZOLE 100 MG TAB GTB SCH (08:54)
[2017-08-15] MEDS: FOLIC ACID 1 MG TAB GTB SCH (08:54)
[2017-08-15] MEDS: MULTIVITAMINS THERAPEUTIC TAB GTB SCH (08:54)
[2017-08-15] MEDS: CHOLECALCIFEROL 2,000 UNIT CAP GTB SCH (08:54)
[2017-08-15] MEDS: LACTOBACILLUS RHAMNOSUS CAP GTB SCH (08:54)
[2017-08-15] MEDS: ASCORBIC ACID 500 MG TAB GTB SCH (08:54)
[2017-08-15] MEDS: COLLAGENASE 30 GM TUBE TOP SCH (08:55)
[2017-08-15] MEDS: MUPIROCIN 2% 22 GM OINT TOP SCH (08:55)
[2017-08-15] MEDS: DOXYCYCLINE 100 MG in SOD CHLORIDE 0.9% 250 ML IVPB SCH (08:58)
[2017-08-15] MEDS ORDERED: VANCOMYCIN 1 GM in NS 250 ML IVPB SCH (10:00)
--- NOTE | 2017-08-15 10:36 | CONS ---
Date/Time of Note Date/Time of Note DATE: 08/15/17 TIME: 10:33 Assessment/Plan Assessment/Plan Additional Assessment/Plan Ventilator setting; AC of 22, tidal volume 500, PEEP of 5, 30% FiO2. Assessment and recommendations; 1. Patient with history of chronic respiratory failure admitted for severe bilateral pneumonia. 2. Hypotension with interval improvement. 3. Dementia. 4. Stage IV sacral decubitus ulcer. 5. Anemia and thrombocytopenia. Continue current treatment. Obtain follow-up chest x-ray. Consultation Date/Type/Reason Admit Date/Time Aug 11, 2017 at 12:54 Initial Consult Date 08/11/17 Type of Consultation: Pulmonary/critical care 24 HR Interval Summary Free Text/Dictation Patient's condition remains critical but stable. Patient is now significantly more awake and alert. And follows simple commands like mouth opening on command. Has remained hemodynamically stable. General exam; elderly male, on ventilator via tracheostomy. Awake. Currently in no distress. Exam/Review of Systems Vital Signs Vitals Vital Signs Date Time Temp Pulse Resp B/P Pulse Ox O2 Delivery O2 Flow Rate FiO2 08/15/17 08:00 63 08/15/17 07:50 26 100 40 08/15/17 07:00 114/78 Mechanical Ventilator 08/15/17 04:00 98.5 Intake and Output 08/14/17 08/14/17 08/15/17 15:00 23:00 07:00 Intake Total 760 ml 610 ml 320 ml Output Total 600 ml 630 ml 490 ml Balance 160 ml -20 ml -170 ml Exam HEENT exam; supple neck, positive JVD. No lymphadenopathy. Midline trachea. No thyromegaly. Pharynx is clear. Patient is edentulous. The colostomy in place. Pupils are small bilaterally. Chest exam; scattered crackles bilaterally. S1-S2 audible, no murmurs. Abdomen exam; soft, G-tube in place. Nondistended. Nontender. Bowel sounds audible. Extremity exam; no edema. OUTCOMES ANALYST exam; patient awake and follows simple commands like mouth opening. Exhibiting profound generalized muscular weakness. Results Result Diagram: 08/15/17 0440 08/15/17 0440 Results 24 hrs Laboratory Tests Test 08/14/17 12:16 08/14/17 18:39 08/14/17 22:14 08/15/17 04:40 Bedside Glucose 118 121 111 White Blood Count 8.1 Red Blood Count 2.42 L Hemoglobin 7.6 L Hematocrit 23.7 L Mean Corpuscular Volume 97.9 Mean Corpuscular Hemoglobin 31.4 Mean Corpuscular Hemoglobin Concent 32.1 Red Cell Distribution Width 21.2 H Platelet Count 126 L Mean Platelet Volume 13.6 H Neutrophils % 80.6 H Lymphocytes % 5.9 L Monocytes % 7.0 Eosinophils % 4.9 Basophils % 0.2 Nucleated Red Blood Cells % 0.0 Neutrophils # 6.5 Lymphocytes # 0.5 L Monocytes # 0.6 Eosinophils # 0.4 Basophils # 0.0 Nucleated Red Blood Cells # 0.0 Sodium Level 134 L Potassium Level 4.8 Chloride Level 107 Carbon Dioxide Level 21 Anion Gap 11 Blood Urea Nitrogen 137 H Creatinine 2.39 H Glucose Level 102 Calcium Level 7.8 L Phosphorus Level 6.2 H Magnesium Level 2.8 H Triglycerides Level 53 Cholesterol Level 54 L LDL Cholesterol, Calculated 30 HDL Cholesterol 13 L Cholesterol/HDL Ratio 4.1 Test 08/15/17 06:21 08/15/17 08:49 Iron Level 61 Total Iron Binding Capacity 149 L Percent Iron Saturation 41 Ferritin 1040.0 H Bedside Glucose 126 Medications Medications Current Medications Ascorbic Acid (Vitamin C) 500 mg DAILY GTB Last administered on 08/15/17 08:54 ; Admin Dose 500 MG; Start 08/12/17 at 09:00 Cholecalciferol (Vitamin D) 2,000 unit DAILY GTB Last administered on 08:54; Admin Dose 2,000 UNIT; Start 08/12/17 at 09:00 Ferrous Sulfate (Feosol Liquid Cup) 330 mg DAILY GTB Last administered on 08:54; Admin Dose 330 MG; Start 08/12/17 at 09:00 Fluconazole (Diflucan) 100 mg DAILY GTB Last administered on 08/15/17 08:54; Admin Dose 100 MG; Start 08/12/17 at 09:00 Folic Acid (Folic Acid) 1 mg DAILY GTB Last administered on 08/15/17 08:54; Admin Dose 1 MG; Start 08/12/17 at 09:00 Lactobacillus Acidophilus/ Rhamnosus (Culturelle) 1 cap BID GTB Last administered on 08/15/17 08:54; Admin Dose 1 CAP; Start 08/11/17 at 21:00 Multivitamins Therapeutic (Theragran) 1 tab DAILY GTB Last administered on 08/15 08:54; Admin Dose 1 TAB; Start 08/12/17 at 09:00 Diagnostic Test (Pha) (Accu-Chek) 1 ea 02 XX Last administered on 08/13/17 01: 24; Admin Dose 1 EA; Start 08/12/17 at 02:00 Miscellaneous Information 1 ea NOTE XX ; Start 08/11/17 at 16:00 Glucose (Glutose) 15 gm Q15M PRN PO DECREASED GLUCOSE; Start 08/11/17 at 16:00 Glucose (Glutose) 22.5 gm Q15M PRN PO DECREASED GLUCOSE; Start 08/11/17 at 16: 00 Dextrose (D50w Syringe) 25 ml Q15M PRN IV DECREASED GLUCOSE Last administered on 08/13/17 01:39; Admin Dose 25 ML; Start 08/11/17 at 16:00 Dextrose (D50w Syringe) 50 ml Q15M PRN IV DECREASED GLUCOSE; Start 08/11/17 at 16:00 Glucagon (Glucagen) 1 mg Q15M PRN IM DECREASED GLUCOSE; Start 08/11/17 at 16:00 Glucose (Glutose) 15 gm Q15M PRN BUCCAL DECREASED GLUCOSE; Start 08/11/17 at 16 :00 Miscellaneous Information (Pending Santyl Order For Wound Care) This patient reyes... PRN PRN XX WOUND CARE; Start 08/11/17 at 22:00 Digoxin (Digoxin) 0.125 mg Q2D GTB Last administered on 08/14/17 13:17; Admin Dose 0.125 MG; Start 08/12/17 at 13:00 Collagenase (Santyl) 1 applic DAILY TOP Last administered on 08/15/17 08:55; Admin Dose 1 APPLIC; Start 08/12/17 at 09:00 Mupirocin 1 applic 1 applic BID TOP Last administered on 08/15/17 08:55; Admin Dose 1 APPLIC; Start 08/13/17 at 12:30 Doxycycline Hyclate 100 mg/ Sodium Chloride 250 ml @ 250 mls/hr Q12 IVPB Last administered on 08/15/17 08:58; Admin Dose 250 MLS/HR; Start 08/14/17 at 13:00 Ceftazidime (Fortaz 1gm/50 ml (Pmx)) 50 ml @ 100 mls/hr Q24H IVPB Last administered on 08/14/17t 13:22; Admin Dose 100 MLS/HR; Start 08/14/17 at 13:00 Furosemide (Lasix) 40 mg Q8 IV ; Start 08/15/17 at 14:00 Epoetin Lobito (Epogen (Esrd)) 10,000 units MoWeFr@17 SC ; Start 08/15/17 at 17:00 DAKOTA SHELLEY Aug 15, 2017 10:36
--- NOTE | 2017-08-15 13:17 | PN ---
DATE: 08/15/2017 SUBJECTIVE DATA: No acute events overnight. The patient is alert, denies pain, looks comfortable. No fevers. Temperature 97, pulse 67, respirations 20, blood pressure 122/91, saturation 99 on vent. LABORATORY AND DIAGNOSTIC DATA: WBC 8.1, H and H 7.6 and 23.7, platelets 126,000 and neutrophils 80.6. BUN 137, creatinine 2.39. MICROBIOLOGY: Repeat blood cultures. Pending initial culture grew coag-negative Staph species. Urine culture grew Pseudomonas aeruginosa. Nares swab positive for MRSA. INDWELLINGS: Trach, PEG, Pathak. ANTIMICROBIALS: The patient is on Fortaz and doxycycline. He is also on fluconazole for oral thrush. OBJECTIVE DATA: PHYSICAL EXAMINATION: Well-developed, fragile, elderly man, who is awake, in no distress. HEENT: Head atraumatic, normocephalic. Sclerae anicteric. Buccal mucosa dry. NECK: Supple. Tracheostomy present. CHEST: Rise symmetrical. Breath sounds clear. Diminished at the bases. HEART: S1, S2. ABDOMEN: Soft, bowel sounds present. EXTREMITIES: With bilateral edema. SKIN: Positive for anasarca and an unstageable sacral wound. ASSESSMENT: 1. Resolving sepsis status post-septic shock. 2. Multidrug resistant Pseudomonas aeruginosa urinary tract infection. 3. Methicillin-resistant Staphylococcus aureus nares colonization. 4. Pneumonia. 5. Coag-negative Staph bacteremia, possibly contaminant. 6. Acute on chronic kidney disease. 7. Atrial fibrillation. 8. Cachexia. PLAN: The patient remains hemodynamically stable. He is being followed by multiple consultants. We will continue him on current antibiotics. Await for final cultures. Follow chest x- ray. Continue local wound care as per surgical team. Dictated By: Gm Addison NP /ruben/rasheed /Document#: [id number]
[2017-08-15] MEDS ORDERED: FUROSEMIDE 40 MG INJ IV SCH (14:00)
[2017-08-15] MEDS: CEFTAZIDIME 1GM/50 ML (PMX) 50 ML IVPB SCH (14:54)
[2017-08-15] MEDS ORDERED: EPOETIN 10000 UNITS/1 ML INJ (ESRD) SC SCH (17:00)
--- NOTE | 2017-08-15 18:08 | DS ---
DATE OF ADMISSION: 08/11/2017 DATE OF DISCHARGE: 08/15/2017 HOSPITAL COURSE: The patient is an 87-year-old male with a past medical history of ventilator-dependent respiratory failure, history of chronic kidney disease, previously on hemodialysis, history of hypertension, BPH, , coronary artery disease, AFib, who presents to [facility] from a [facility] facility due to shortness of breath. The patient upon arrival in the emergency room, was noted to be in decompensated heart failure, to be septic and in shock. The patient was started on pressor support, IV antibiotics and admitted to intensive care unit. While in the intensive care unit, the patient was seen by multiple specialists including Waste And Batting Waste Chopper, Infectious Disease, and Drapery Seamstress. In terms of the patient's septic shock, he was able to be weaned off pressors, and became hemodynamically stable. The patient also noted to be stable on his ventilatory settings as he is being followed by Pulmonary. The patient was in acute kidney injury on top of his chronic kidney disease. The patient's renal function remained low; however, the patient is now making urine and responding well to diuretic therapy. At this point, per family, they do not wish to initiate dialysis. The patient also had acute encephalopathy, which was toxic metabolic. The patient is clinically improving. Other problems including dysphagia, anemia, mineral bone disease have been stable. Currently at this time, the patient is stable. No acute distress. He will be discharged to [facility] for continued care. FINAL DIAGNOSES: 1. Septic shock secondary to healthcare associated pneumonia bacteremia. 2. Respiratory failure. 3. Nonoliguric acute kidney injury. 4. Chronic kidney disease, stage 5. 5. Diffuse anasarca. 6. Congestive heart failure. 7. Anemia. 8. Mineral bone disorder. 9. Acute encephalopathy. 10. Dementia. 11. Decubitus wound. 12. Dysphagia. FINAL MEDICATION: See reconciliation list. At the time of transfer and discharge the patient is stable. No acute distress. Please note, I spent over 40 minutes time preparing patient's discharge. Dictated By: Charles Gong DO /ruben/issac /Document#: [id number]
== END 2017-08-15 20:30 | DRG 870 ==
LOC: E/R 09:06 → ICU 12:54
PROVIDERS: ADMIT Internal Medicine; ATTEND Internal Medicine
PROC: 5A1955Z Respiratory Ventilation, Greater than 96 Consecutive Hours (ICD-10-PCS; principal; 2017-08-11)
PROC: 30233N1 Transfusion of Nonautologous Red Blood Cells into Peripheral Vein, Percutaneous Approach (ICD-10-PCS; 2017-08-15)
DX: A41.9 Sepsis, unspecified organism (principal); N17.0 Acute kidney failure with tubular necrosis; R65.21 Severe sepsis with septic shock; J18.9 Pneumonia, unspecified organism; G92 Toxic encephalopathy; L89.154 Pressure ulcer of sacral region, stage 4; I50.33 Acute on chronic diastolic (congestive) heart failure; J96.10 Chronic respiratory failure, unspecified whether with hypoxia or hypercapnia; R64 Cachexia; I13.2 Hypertensive heart and chronic kidney disease with heart failure and with stage 5 chronic kidney disease, or end stage renal disease; N18.5 Chronic kidney disease, stage 5; F03.90 Unspecified dementia, unspecified severity, without behavioral disturbance, psychotic disturbance, mood disturbance, and anxiety; L89.212 Pressure ulcer of right hip, stage 2; L89.220 Pressure ulcer of left hip, unstageable; D63.8 Anemia in other chronic diseases classified elsewhere; Z93.0 Tracheostomy status; Z93.1 Gastrostomy status; Z68.30 Body mass index [BMI] 30.0-30.9, adult; I48.91 Unspecified atrial fibrillation; Z79.4 Long term (current) use of insulin; E11.9 Type 2 diabetes mellitus without complications
CPT/HCPCS: 36415; 36430; 36600; 71010; 80048; 80053; 80061; 80202; 81001; 82728; 82803; 82962; 83540; 83605; 83735; 83880; 84100; 84484; 85025; 85378; 85610; 85730; 86644; 86850; 86900; 86901; 86920; 87040; 87081; 87086; 93005; 93306; 93970; 94002; 94003; 96365; 96366; 96375; J0692; J1815; J1940; J3370; J7030; J7040; J7050; P9016; Q4081

== ENCOUNTER 2017-09-21 16:19 | Day surgery (SDC) | payer BC, MEDICARE, OTHER ==
[2017-09-21] VITALS (10 sets, daily range): BP systolic 94–108; BP diastolic 48–60; PULSE 110–141; RESP 18–24
[~2017-09-21 16:19] MED LIST changes: -ACET325S17 GTB; -AMIO200T2 GTB; +ASC500 GTB; -ASCO250T96 GTB; -BRIM10DR12 BOTH EYES; -BUDE0.5A INHALATION; -CHLO473M4 MM; -CHOL100062 GTB; +CHOL200073 GTB; -CYAN500T46 GTB; +DIGO125T GTB; +DOCU-159 GTB; -DOXA1TAB GTB; +FLUC100T39 GTB; -FOL8 GTB; +FOLI-49 GTB; +HYDR-906 GTB; -HYDR15SO8 GTB; +INSU100V3 IJ; +LACT1CAP57 GTB; -LANS30CA GTB; -LEVO500T72 GTB; -LORA0.5T GTB; -MELA5TAB4 GTB; +MULTI GTB; -NEPH GTB; -ONDA4TAB95 GTB; -POLY17PO6 GTB; +PROPOFOL 200 MG INJ ONE; -PROT946L GTB; +ROCURONIUM 50 MG INJ ONE; +ZOLP5TAB7 GTB
[2017-09-21] MEDS ORDERED: IOHEXOL 300MG/ML 30 ML BTL ONE (18:27)
[2017-09-21] MEDS ORDERED: LIDOCAINE 1% (MPF) 30 ML INJ ONE (18:27)
[2017-09-21] MEDS ORDERED: HEPARIN 1000 UNITS/ML 10 ML INJ ONE (18:27)
[2017-09-21] MEDS ORDERED: HEPARIN 10,000 UNITS/ML 1 ML INJ IRR ONE (18:42)
[2017-09-21] MEDS ORDERED: LIDOCAINE 1% (MPF) 30 ML INJ INJ ONE (18:44)
[2017-09-21] MEDS ORDERED: IOHEXOL 300MG/ML 30 ML BTL IV ONE (18:48)
[2017-09-21] MEDS ORDERED: SUGAMMADEX SODIUM 200 MG/2 ML VIAL IV ONE (19:37)
--- NOTE | 2017-09-21 19:49 | OPR ---
Date/Time of Note Date/Time of Note DATE: 09/21/17 TIME: 19:47 Operative Report Procedure Date: Sep 21, 2017 Preoperative Diagnosis ESRD Postoperative Diagnosis same Operation/Procedure Performed RIJV Permcath placement Surgeon see signature line Developer Prover Upholstering none Anesthesia Type: general Estimated Blood Loss: none Transfusion none Specimen none Grafts/Implants none Complications none Pt Condition Post Procedure: critical Procedure Description dictated RON CASTRO MD Sep 21, 2017 19:49
--- NOTE | 2017-09-21 19:49 | OPR ---
Date/Time of Note Date/Time of Note DATE: 09/21/17 TIME: 19:47 Operative Report Procedure Date: Sep 21, 2017 Preoperative Diagnosis ESRD Postoperative Diagnosis same Operation/Procedure Performed RIJV Permcath placement Surgeon see signature line Sales And Marketing Professional none Anesthesia Type: general Estimated Blood Loss: none Transfusion none Specimen none Grafts/Implants none Complications none Pt Condition Post Procedure: critical Procedure Description dictated RON CASTRO MD Sep 21, 2017 19:49
[2017-09-21] MEDS ORDERED: FENTAnyl 50 MCG/ML VIAL IV PRN (20:00)
--- NOTE | 2017-09-22 05:42 | OPR ---
DATE OF OPERATION: PREOPERATIVE DIAGNOSIS: Renal failure. POSTOPERATIVE DIAGNOSIS: Renal failure. OPERATION PERFORMED: Right internal jugular 23 cm tunneled hemodialysis catheter placement. SURGEON: Neel Chu MD. ANESTHESIA: General. CONSENT: Risks, benefits, complications, alternative therapies explained to the patient and the [facility] cassandra, consent obtained. OPERATIVE TECHNIQUE: The patient was placed in supine position, prepped and draped in usual sterile fashion, 1% lidocaine was used throughout the operation for local anesthesia. Under ultrasonic maye dance, access was gained in the right internal jugular vein. Guidewire was advanced without any dif ficulty. Subcutaneous tissues dilated. A 23 cm tunneled hemodialysis catheter was brought into the subcutaneous tunnel, advanced into the right internal jugular vein and superior vena cava, all unde r fluoroscopic guidance. The tip was placed at the junction of the superior vena cava and right atr ium. Both ports of the catheter were aspirated and injected using saline solution. Catheter was se cured to skin using silk sutures. The neck site and the exit site were closed using a single 3-0 Vi cryl suture in interrupted fashion. Patient tolerated procedure well. Dictated By: NEEL STARR/NTS Conf#: [id number] DID#: [id number]
--- NOTE | 2017-09-22 05:42 | OPR ---
DATE OF OPERATION: PREOPERATIVE DIAGNOSIS: Renal failure. POSTOPERATIVE DIAGNOSIS: Renal failure. OPERATION PERFORMED: Right internal jugular 23 cm tunneled hemodialysis catheter placement. SURGEON: Neel Chu MD. ANESTHESIA: General. CONSENT: Risks, benefits, complications, alternative therapies explained to the patient and the [facility] cassandra, consent obtained. OPERATIVE TECHNIQUE: The patient was placed in supine position, prepped and draped in usual sterile fashion, 1% lidocaine was used throughout the operation for local anesthesia. Under ultrasonic maye dance, access was gained in the right internal jugular vein. Guidewire was advanced without any dif ficulty. Subcutaneous tissues dilated. A 23 cm tunneled hemodialysis catheter was brought into the subcutaneous tunnel, advanced into the right internal jugular vein and superior vena cava, all unde r fluoroscopic guidance. The tip was placed at the junction of the superior vena cava and right atr ium. Both ports of the catheter were aspirated and injected using saline solution. Catheter was se cured to skin using silk sutures. The neck site and the exit site were closed using a single 3-0 Vi cryl suture in interrupted fashion. Patient tolerated procedure well. Dictated By: NEEL STARR/NTS Conf#: [id number] DID#: [id number]
--- NOTE | 2017-09-22 05:42 | OPR ---
DATE OF OPERATION: PREOPERATIVE DIAGNOSIS: Renal failure. POSTOPERATIVE DIAGNOSIS: Renal failure. OPERATION PERFORMED: Right internal jugular 23 cm tunneled hemodialysis catheter placement. SURGEON: Neel Chu MD. ANESTHESIA: General. CONSENT: Risks, benefits, complications, alternative therapies explained to the patient and the [facility] cassandra, consent obtained. OPERATIVE TECHNIQUE: The patient was placed in supine position, prepped and draped in usual sterile fashion, 1% lidocaine was used throughout the operation for local anesthesia. Under ultrasonic maye dance, access was gained in the right internal jugular vein. Guidewire was advanced without any dif ficulty. Subcutaneous tissues dilated. A 23 cm tunneled hemodialysis catheter was brought into the subcutaneous tunnel, advanced into the right internal jugular vein and superior vena cava, all unde r fluoroscopic guidance. The tip was placed at the junction of the superior vena cava and right atr ium. Both ports of the catheter were aspirated and injected using saline solution. Catheter was se cured to skin using silk sutures. The neck site and the exit site were closed using a single 3-0 Vi cryl suture in interrupted fashion. Patient tolerated procedure well. Dictated By: NEEL STARR/NTS Conf#: [id number] DID#: [id number]
--- NOTE | 2017-09-23 09:35 | RADRPT ---
PROCEDURE: Intraoperative imaging of the chest. CLINICAL INDICATION: Check line placement. TECHNIQUE: Images of the chest were obtained in the operating room with an image intensifier. No radiologist was in attendance. a single frontal image of the chest were obtained with the image i ntensifier. Fluoroscopy time is 3.3 seconds. COMPARISON: Chest x-ray dated 09/09/2017. FINDINGS: Final images demonstrate a right internal jugular vein tunneled dialysis catheter with the tip in th e superior vena cava. The tracheostomy tube is also noted. IMPRESSION: 1. Satisfactory intraoperative imaging of the chest. RPTAT: QQ .Merrill Amador MD, MD Date Time Electronically viewed and signed by .Merrill Amador MD, MD on 09/23/2017 09:35 .R/
== END 2017-09-21 20:44 ==
LOC: SDS 16:19
PROVIDERS: ATTEND Thoracic Surgery (Cardiothoracic Vascular Surgery)
DX: I12.0 Hypertensive chronic kidney disease with stage 5 chronic kidney disease or end stage renal disease (principal); E11.22 Type 2 diabetes mellitus with diabetic chronic kidney disease; N18.6 End stage renal disease; I25.10 Atherosclerotic heart disease of native coronary artery without angina pectoris; M19.90 Unspecified osteoarthritis, unspecified site; Z88.6 Allergy status to analgesic agent
CPT/HCPCS: 36558; C1752; J1644; Q9967

== ENCOUNTER 2017-09-27 14:34 | Inpatient (IN) | payer MEDICARE, BC, OTHER ==
[2017-09-27] VITALS (14 sets, daily range): BP systolic 72–100; BP diastolic 38–59; PULSE 91–117; RESP 13–46
[~2017-09-27] VITALS: Ht 170.2 cm; Wt 73.0 kg
[~2017-09-27 14:34] MED LIST changes: -PROPOFOL 200 MG INJ ONE; -ROCURONIUM 50 MG INJ ONE
[2017-09-27] MEDS ORDERED: THROMBIN 5000 UNIT VIAL ONE (18:49)
[2017-09-27] MEDS ORDERED: VANCOMYCIN 1 GM INJ ONE (18:49)
[2017-09-27] MEDS ORDERED: GELATIN SIZE 100 SPONGE ONE (18:49)
[2017-09-27] MEDS ORDERED: HEPARIN 1000 UNITS/ML 10 ML INJ ONE (18:49)
[2017-09-27] MEDS ORDERED: POLYMYXIN/BACITRACIN 1L IRRIG ONE (18:49)
[2017-09-27] MEDS ORDERED: PHENYLephrine (100 MCG/ML) 5ML SYG ONE (19:44)
[2017-09-27] MEDS ORDERED: FENTAnyl 50 MCG/ML VIAL ONE (19:46)
[2017-09-27] MEDS ORDERED: CEFAZOLIN 1 GM INJ ONE (20:21)
--- NOTE | 2017-09-27 20:34 | OPR ---
DATE OF OPERATION: PREOPERATIVE DIAGNOSIS: Right femoral pseudoaneurysm. POSTOPERATIVE DIAGNOSIS: Right femoral pseudoaneurysm. OPERATION PERFORMED: Right femoral pseudoaneurysm repair. SURGEON: Ron Chu MD ANESTHESIA: General. ESTIMATED BLOOD LOSS: 50 mL. OPERATIVE TECHNIQUE: The patient was placed in supine position, prepped and draped in the usual antoni rile fashion. Time-out was called, antibiotics were given. I made an 8 cm incision in the right gr oin. The incision was taken down to the subcutaneous tissue which was then taken down to subcutaneo us tissue. Femoral artery was identified. The superficial femoral artery appeared to have a 3 x 4 mm opening in its anterior aspect. Pressure was applied proximally and distally and the pseudoaneur ysm was resected and the femoral artery was repaired using 6-0 Prolene in a kinvez-at-zpeyu fashion. A 24-Tajik Cameron-Lal was placed into the wound and brought out through a lower stab wound, se cured to the skin using silk sutures. The wound was irrigated and closed in 2 layers of 3-0 Vicryl suture for the deep and subcuticular and terrell for the skin. Dictated By: RON STARR/NORM Conf#: [id number] DID#: [id number]
[2017-09-27 21:39] LABS: AADO2 Arterial 227.1 mmHg (7.0-24.0); Allen Test ACCEPTAB; Arterial Base Excess -2.5 mmol/L (-3.0-3); Arterial COHb 0.8 % (0.0-3.0); Arterial Fraction of Oxyhgb 97.1 % (93.0-99.0); Arterial HCO3 23.7 mmol/L (22.0-26.0); Arterial MetHb 0.7 % (0.0-1.5); Arterial Total Hemglobin 7.8 g/dl (12.0-18.0); MODE VENT - AC
[2017-09-27] MEDS ORDERED: DEXTROSE 5%-0.9% NACL 1,000 ML IV SCH (22:00)
[2017-09-27] MEDS: HYDROmorphONE 0.5 MG/0.5 ML SYG IV PRN (22:49)
[2017-09-27] MEDS: PHENYLephrine 40 MG in DEXTROSE 5% 496 ML IV SCH (22:50)
[2017-09-28] VITALS (110 sets, daily range): BP systolic 51–134; BP diastolic 38–70; PULSE 69–128; RESP 0–26
[2017-09-28] MEDS ORDERED: DEXTROSE 5%-0.9% NACL 1,000 ML IV SCH (03:00)
[2017-09-28 06:22] LABS: AADO2 Arterial 140.9 mmHg (7.0-24.0); Allen Test ACCEPTAB; Arterial Base Excess -0.9 mmol/L (-3.0-3); Arterial COHb 1.1 % (0.0-3.0); Arterial Fraction of Oxyhgb 97.5 % (93.0-99.0); Arterial HCO3 25.1 mmol/L (22.0-26.0); Arterial MetHb 0.4 % (0.0-1.5); Arterial Total Hemglobin 13.9 g/dl (12.0-18.0); MODE VENT - AC
[2017-09-28 06:43] LABS: BASOPHIL # 0.1 10^3/ul (0.0-0.1); BASOPHILS % 0.5 % (0.0-2.0); EOSINOPHILS # 0.8 10^3/ul (0.0-0.5); EOSINOPHILS % 6.3 % (0.0-7.0); HEMATOCRIT 30.8 % (42.0-52.0); HEMOGLOBIN 9.8 g/dl (14.0-18.0); LYMPHOCYTES % 8.3 % (15.0-51.0); MEAN CORPUSCULAR HEMOGLOBIN 31.6 pg (29.0-33.0); MEAN CORPUSCULAR HGB CONC 31.8 g/dl (32.0-37.0); MEAN CORPUSCULAR VOLUME 99.4 fl (82.0-101.0); MEAN PLATELET VOLUME 12.1 fl (7.4-10.4); MONOCYTE # 0.9 10^3/ul (0.3-0.9); MONOCYTES % 7.5 % (0.0-11.0); NEUTROPHIL # 9.4 10^3/ul (1.6-7.5); NEUTROPHILS % 76.6 % (39.0-77.0); PLATELET COUNT 110 10^3/UL (140-415); RED CELL DISTRIBUTION WIDTH 21.2 % (11.5-14.5); WHITE BLOOD COUNT 12.3 10^3/ul (4.8-10.8)
[2017-09-28 07:06] LABS: CALCIUM 9.5 mg/dl (8.4-10.2); CREATININE 2.82 mg/dl (0.61-1.24); POTASSIUM 3.2 mmol/L (3.5-5.1)
[2017-09-28] MEDS ORDERED: POTASSIUM CHLORIDE (SR) 20 MEQ TAB PO STA (07:55)
[2017-09-28] MEDS ORDERED: traMADol 50 MG TAB GTB PRN (08:00)
[2017-09-28] MEDS ORDERED: ALBUTEROL/IPRATROPIUM (NEB) 3 ML AMP NEB PRN (08:00)
[2017-09-28] MEDS ORDERED: ZOLPIDEM 5 MG TAB GTB PRN (08:00)
[2017-09-28] MEDS: MIDODRINE 5 MG TAB GTB SCH ×3 (08:16→17:07)
--- NOTE | 2017-09-28 08:37 | HP ---
DATE OF ADMISSION: 09/27/2017 CHIEF COMPLAINT: Status post pseudoaneurysm repair. HISTORY OF PRESENT ILLNESS: This is an 87-year-old male with a past medical history of ventilatory dependent respiratory failure, history of end-stage renal disease, history of hypertension, BPH, CHF , coronary artery disease, AFib, who presents to [facility] from [facility] after undergoing pseudoaneurysm repair. The patient was initially at [facility] where he was initiated dialysis. He was then transferred to [facility] for continued care. While at [facility], the patient noted to have severe aneur ysm in his right groin where his dialysis catheter was noted. The patient was evaluated by vascular surgeon, Dr. Chu, and yesterday underwent for a surgical repair pseudoaneurysm without any in traoperative complications. Postoperatively, patient was in the intensive care unit, was noted to b e hypotensive and started on pressor support. There have been no reports of any active hemoptysis, hematemesis, hematochezia. PAST MEDICAL HISTORY: As stated above, history of ventilator dependent respiratory failure, history of end-stage renal disease, history of CHF, history of arrhythmia, history of encephalopathy has a history of anxiety disorder, history of benign prostatic hypertrophy. ALLERGIES: NO KNOWN DRUG ALLERGIES. PAST SURGICAL HISTORY: Status post trach, status post PEG. SOCIAL HISTORY: Lives at a subacute facility. FAMILY HISTORY: Noncontributory. MEDICATIONS: The patient's medications have been reviewed and reconciled. REVIEW OF SYSTEMS: Unable to do adequate review of systems as the patient is altered. Pertinent po sitives stated in HPI, otherwise negative. PHYSICAL EXAMINATION: VITAL SIGNS: Blood pressure is currently 100/82, respirations 16, pulse 82, temperature 98.3. HEENT: Head is normocephalic. Pupils are reactive to light. NECK: Supple, neck shows a trach. HEART: Irregularly irregular. LUNGS: Show diminished breath sounds at base. ABDOMEN: Soft, nontender to palpation without rebound or guarding. Positive PEG. EXTREMITIES: Negative for clubbing, cyanosis. Positive edema on the right groin. Please note that there is a EDY drain in dressings clean, dry, intact. DERMATOLOGIC: No rashes. MUSCULOSKELETAL: Positive decubitus wound. NEUROLOGIC: Limited exam due to lack of patient cooperation. LABORATORY DATA: Shows a white count 12.3, hemoglobin 9.0, platelet count is 110. Sodium 147, pota ssium 3.2, BUN 57, creatinine 2.82. ASSESSMENT AND PLAN: 1. Right femoral pseudoaneurysm status post surgical repair. Plan is to follow up with vascular ballesteros desmond, Dr. Chu for recommendations. Continue wound care. 2. Shock, etiology is possibly multifactorial, questionable possible sepsis, possible hemodynamics. Plan at this point is to check blood cultures, check urine culture. We will check a chest x-ray. We will check a procalcitonin level, lactic acid level. Will start the patient on empiric antibiot ics. We will place an ID consult for evaluation. 3. Ventilator dependent respiratory failure. Vent settings, ABG is reviewed. Continue to monitor. Follow up with pulmonary. 4. End-stage renal disease. Patient's access is PermCath, will anticipate hemodialysis. Will dial yze for 3 hours on 3 K bath, calcium 2.5. 5. Anemia. Monitor hemoglobin and hematocrit levels. Will give Epogen. 6. Mineral bone disorder. Monitor calcium and phosphorus levels. 7. Atrial fibrillation, currently rate controlled. Continue medical management and follow up cardi ology. 8. Acute on chronic encephalopathy. Etiology is toxic metabolic. Continue to monitor. 9. Decubitus wound. We will place a wound care consult for evaluation. 10. Dysphagia, status post PEG. Resume tube feeding. 11. Gastrointestinal and deep venous thrombosis prophylaxis. Continue proton pump inhibitor and se quential leg squeezers. Please note I spent over 25 minutes of time with this patient and the patient's discussing code status. The patient is FULL CODE. Dictated By: PHILIPPE WILSON/NORM Conf#: [id number] DID#: [id number]
[2017-09-28 09:12] LABS: ALBUMIN 2.7 g/dl (3.3-4.9); BILIRUBIN,INDIRECT 0.1 mg/dl (0-1.1); BILIRUBIN,TOTAL 0.1 mg/dl (0.2-1.3); TOTAL PROTEIN 7.4 g/dl (6.1-8.1)
[2017-09-28] MEDS: FLUCONAZOLE 100 MG TAB GTB SCH (09:23)
[2017-09-28] MEDS: FERROUS SULFATE 60 MG/ML 5ML CUP GTB SCH (09:23)
[2017-09-28] MEDS: HYDROCODONE/APAP (5/325) TAB GTB SCH (09:24)
[2017-09-28] MEDS: MULTIVITAMINS THERAPEUTIC TAB GTB SCH (09:24)
[2017-09-28] MEDS: METOPROLOL 25 MG TAB GTB SCH ×2 (09:24→21:00)
[2017-09-28] MEDS: ASCORBIC ACID 500 MG TAB GTB SCH (09:24)
[2017-09-28] MEDS: LACTOBACILLUS RHAMNOSUS CAP GTB SCH ×2 (09:25→21:37)
[2017-09-28] MEDS: FOLIC ACID 1 MG TAB GTB SCH (09:25)
[2017-09-28] MEDS: DOCUSATE SODIUM 100 MG CAP PO SCH ×2 (09:25→21:37)
[2017-09-28] MEDS: DIGOXIN 0.125 MG TAB GTB SCH (09:27)
--- NOTE | 2017-09-28 09:49 | CONS ---
Date/Time of Note Date/Time of Note DATE: 09/28/17 TIME: 09:43 Assessment/Plan Assessment/Plan Additional Assessment/Plan Ventilator setting; AC of 12, tidal volume 450, PEEP of 5, 50% FiO2. Patient currently on Levophed at 3 mics per minute. Assessment and recommendations; 1. Patient admitted for repair of right femoral artery pseudoaneurysm status post successful repair. Mild hypotension, currently on tapering dose of Levophed. 3. End-stage renal disease, on hemodialysis. 4. Chronic respiratory failure which is ventilator dependent. 5. Severe generalized deconditioning and cachexia. 6. Stable atrial fibrillation. Continue current supportive care. Wean off Levophed as tolerated. When the patient is off pressor support he can be transferred back to [facility]. Consultation Date/Type/Reason Admit Date/Time Sep 27, 2017 at 21:00 Date of Consultation: Sep 28, 2017 Type of Consultation: Pulmonary/critical care Reason for Consultation Pulmonary consultation requested for evaluation of chronic respiratory failure and postop hypotension. Next History of present illness; patient is an 87-year-old white male who was transferred from [place] to [facility] [place] for repair of right femoral artery pseudoaneurysm. Patient underwent surgical repair yesterday which was uneventful. Patient however developed mild hypotension requiring transfer to ICU. Patient remains completely awake and alert. He denies any chest pain, shortness of breath. Next Past medical history; 1. Patient with history of chronic respiratory failure which is ventilator dependent. 2. End-stage renal disease, on hemodialysis. 3. BPH. 4. Chronic atrial fibrillation. 5. Hypertension. 6. History of coronary artery disease. Medications; reviewed. Allergies; acetaminophen. Social history; patient never smoked, no history of any alcohol or drug abuse. Family history; noncontributory. Patient however does have a very supportive family. Occupational history; noncontributory. Review of systems; denies any headache, chest pain, shortness of breath, abdominal pain, nausea or vomiting. General exam; elderly male, appears quite emaciated, on ventilator via tracheostomy, awake and alert. Currently in no distress. Exam/Review of Systems Vital Signs Vitals Vital Signs Date Time Temp Pulse Resp B/P Pulse Ox O2 Delivery O2 Flow Rate FiO2 09/28/17 05:15 87 21 91/52 99 09/28/17 05:02 50 09/28/17 04:00 98.8 Mechanical Ventilator Intake and Output 09/27/17 09/27/17 09/28/17 15:00 23:00 07:00 Intake Total 212.5 ml 175.0 ml Output Total 110 ml 80 ml Balance 102.5 ml 95.0 ml Exam HEENT exam; supple neck, no JVD. No lymphadenopathy. Midline trachea. No thyromegaly. Tracheostomy in place. Patient is edentulous. Chest exam; diminished but clear breath sounds. S1-S2 audible, no murmurs. Irregular rhythm. Abdomen exam; soft, nondistended. Nontender. Scaphoid. No organomegaly. Bowel sounds audible. Extremity exam; no peripheral edema. There is a dressing applied over the right groin. PHOTO ENGRAVER exam; patient is awake and follows simple commands and moves all 4 extremities on command. Results Result Diagram: 09/28/17 0625 09/28/17 0625 Results 24 hrs Laboratory Tests Test 09/27/17 21:15 09/28/17 06:00 09/28/17 06:25 09/28/17 08:37 Blood Gas Specimen Source Blood arterial Blood arterial Arterial Blood Date Drawn 09/27/2017 9:15:18 PM 09/28/2017 6:10:57 AM Arterial Blood pH (Temp corrected) 7.311 L 7.346 L Arterial Blood pCO2 (Temp correct) 48.0 H 47.0 H Arterial Blood pO2 (Temp corrected) 147.9 H 162.7 H Arterial Blood HCO3 23.7 25.1 Arterial Blood Base Excess -2.5 -0.9 Arterial Blood Oxygen Saturation 98.6 99.0 Floyd Test ACCEPTAB ACCEPTAB Arterial Blood Gas Puncture Site Right Radial Right Radial Arterial Blood Carboxyhemoglobin 0.8 1.1 Arterial Blood Methemoglobin 0.7 0.4 Blood Gas A-a O2 Differential 227.1 H 140.9 H Oxyhemoglobin Percent 97.1 97.5 Total Hemoglobin 7.8 L 13.9 Blood Gas Temperature 37.0 37.0 Blood Gas Respiration Rate 12.0 12.0 Blood Gas Actual Respiration Rate 24 20 Blood Gas Modality VENT - AC VENT - AC FiO2 60.0 50.0 Blood Gas Tidal Volume 450.0 450.0 Blood Gas Low PEEP Setting 5.0 5.0 Blood Gas Notified Whom CK TORO Blood Gas Notified Time 09/27/2017 9:39:20 PM 09/28/2017 6:22:46 AM White Blood Count 12.3 #H Red Blood Count 3.10 #L Hemoglobin 9.8 #L Hematocrit 30.8 L Mean Corpuscular Volume 99.4 Mean Corpuscular Hemoglobin 31.6 Mean Corpuscular Hemoglobin Concent 31.8 L Red Cell Distribution Width 21.2 H Platelet Count 110 #L Mean Platelet Volume 12.1 H Neutrophils % 76.6 Lymphocytes % 8.3 L Monocytes % 7.5 Eosinophils % 6.3 Basophils % 0.5 Nucleated Red Blood Cells % 0.0 Neutrophils # 9.4 H Lymphocytes # 1.0 Monocytes # 0.9 Eosinophils # 0.8 H Basophils # 0.1 Nucleated Red Blood Cells # 0.0 Sodium Level 147 H Potassium Level 3.2 L Chloride Level 110 Carbon Dioxide Level 25 Anion Gap 15 Blood Urea Nitrogen 57 H Creatinine 2.82 H Glucose Level 120 Calcium Level 9.5 Lactic Acid Level 1.3 Total Bilirubin 0.1 L Direct Bilirubin 0.00 Indirect Bilirubin 0.1 Aspartate Amino Transf (AST/SGOT) 25 Alanine Aminotransferase (ALT/SGPT) 32 Alkaline Phosphatase 104 Total Protein 7.4 Albumin 2.7 L Medications Medications Current Medications Phenylephrine HCl/ Dextrose (Erwin-Syneph/D5W) 500 ml @ 37.5 mls/hr TITRATE IV Last administered on 09/27/17 22:50; Admin Dose 37.5 MLS/HR; Start 09/27/17 at 22:30 Hydromorphone HCl 0.5 mg 0.5 mg Q4H PRN IV PAIN Last administered on 09/27/17 22:49; Admin Dose 0.5 MG; Start 09/27/17 at 23:00 Dextrose/Sodium Chloride (D5-NS) 1,000 ml @ 50 mls/hr Q20H IV ; Start at 03:00 Midodrine (Proamatine) 10 mg TID@ GTB Last administered on 09/28/17 08:16; Admin Dose 10 MG; Start 09/28/17 at 09:00 Ascorbic Acid (Vitamin C) 500 mg DAILY GTB Last administered on 09/28/17 09: 24; Admin Dose 500 MG; Start 09/28/17 at 09:00 Cholecalciferol (Vitamin D) 2,000 unit DAILY GTB ; Start 09/28/17 at 09:00 Digoxin (Digoxin) 0.125 mg DAILY GTB Last administered on 09/28/17 09:27; Admin Dose 0.125 MG; Start 09/28/17 at 09:00 Docusate Sodium (Colace) 100 mg BID PO Last administered on 09/28/17 09:25; Admin Dose 100 MG; Start 09/28/17 at 09:00 Ferrous Sulfate (Feosol Liquid Cup) 300 mg DAILY GTB Last administered on 09/28 09:23; Admin Dose 300 MG; Start 09/28/17 at 09:00 Fluconazole (Diflucan) 100 mg DAILY GTB Last administered on 09/28/17 09:23; Admin Dose 100 MG; Start 09/28/17 at 09:00 Folic Acid (Folic Acid) 1 mg DAILY GTB Last administered on 09/28/17 09:25; Admin Dose 1 MG; Start 09/28/17 at 09:00 Acetaminophen/ Hydrocodone Bitart ([place] (5/325)) 1 tab DAILY GTB Last administered on 09/28/17 09:24; Admin Dose 1 TAB; Start 09/28/17 at 09:00 Lactobacillus Acidophilus/ Rhamnosus (Culturelle) 1 cap BID GTB Last administered on 09/28/17 09:25; Admin Dose 1 CAP; Start 09/28/17 at 09:00 Metoprolol Tartrate (Lopressor) 25 mg BID GTB Last administered on 09/28/17 09:24; Admin Dose 25 MG; Start 09/28/17 at 09:00 Multivitamins Therapeutic (Theragran) 1 tab DAILY GTB Last administered on 09:24; Admin Dose 1 TAB; Start 09/28/17 at 09:00 Sertraline HCl (Zoloft) 25 mg QHS GTB ; Start 09/28/17 at 21:00 Tramadol HCl (Ultram) 50 mg DAILY PRN GTB FOR WOUND CARE; Start 09/28/17 at 08 :00 Tramadol HCl (Ultram) 50 mg Q8 GTB ; Start 09/28/17 at 14:00 Zolpidem Tartrate (Ambien) 5 mg QHS PRN GTB INSOMNIA; Start 09/28/17 at 08:00 Diagnostic Test (Pha) (Accu-Chek) 1 ea 02 XX ; Start 09/29/17 at 02:00 Diagnostic Test (Pha) 1 ea 1 ea 02 XX ; Start 09/29/17 at 02:00 Meropenem/Sodium Chloride (Merrem 500mg/50 ml(Pmx)) 50 ml @ 100 mls/hr Q12 IVPB ; Start 09/28/17 at 09:00 DAKOTA SHELLEY Sep 28, 2017 09:49
--- NOTE | 2017-09-28 09:50 | RADRPT ---
PROCEDURE: XR Chest. CLINICAL INDICATION: chest pain TECHNIQUE: Single AP view of the chest were obtained COMPARISON: 01/12/2017 FINDINGS: The heart stable and prominently enlarged. The pulmonary vasculature are enlarged bilaterally. The aorta demonstrates atherosclerotic calcifications. There are mild patchy bibasilar opacities presen t with small bilateral pleural effusions. The patient mild upper lung patchy opacities are also pres ent. This is unchanged. Degenerative changes are seen within the thoracic spine. There is no acute osseous abnormality. Tracheostomy tube tip overlies the trachea above the vanessa. A central line catheter is seen with terminates at the SVC. IMPRESSION: There is stable cardiomegaly and mild vascular congestion with the presence of small bibasilar opa cities and small bilateral pleural effusions. In addition patchy upper lung opacities are also prese nt. This is overall unchanged. Stable appearance of support lines and tubes. RPTAT: AA .Paul English MD, Date Time Electronically viewed and signed by .Paul English MD, on 09/28/2017 09:50 .Jayne/
[2017-09-28] MEDS: INSULIN ASPART [NOVOLOG] 3 ML PEN SC SCH ×3 (11:30→21:00)
[2017-09-28] MEDS: CHOLECALCIFEROL 2,000 UNIT CAP GTB SCH (13:03)
[2017-09-28] MEDS: MEROPENEM 500MG/50 ML (PMX) 50 ML IVPB SCH ×2 (13:04→21:40)
--- NOTE | 2017-09-28 13:13 | CONS ---
Date/Time of Note Date/Time of Note DATE: 09/28/17 TIME: 12:52 Assessment/Plan Assessment/Plan Chief Complaint/Hosp Course 1. Sacral wound: -debridement prn -local care -frequent turning and off-loading -low air loss mattress -vitamin c -short term zinc -optimize nutrition 2. Right femoral pseudoaneurysm status post surgical repair; drain with serosanguineous drain -per vascular 3. Ventilator dependent respiratory failure -per pulm -pulm toilet -respiratory treatments 4. End-stage renal disease -HD per renal -avoid/limit nephrotoxic meds -judicious fluids -renally dose meds 5. Anemia: no acute bleed noted -closely monitor surgical site -transfuse as needed 6. Atrial fibrillation -rate control -cards optimization 7. Dysphagia with feeding tube: on tube feeds -cont tf with aspiration precautions 8. Leukocytosis: ? reactive; afebrile -monitor -further workup if persistent 9. Thrombocytosis -supportive 10. Hypoalbuminemia: likely multifactorial -optimize nutrition -medical management of inflammation/infection 11. Electrolyte imbalance -optimize lytes 12. Hypotension: ?sepsis; on pressor -supportive Thank you. Patient seen and examined in collaboration with Dr. Ho Lua. Problems: Consultation Date/Type/Reason Admit Date/Time Sep 27, 2017 at 21:00 Date of Consultation: Sep 28, 2017 Type of Consultation: surgical Reason for Consultation wound Referring Provider: PHILIPPE JUARES DO Hx of Present Illness Dave Agosto is an 87 yo man who is known to our service. He has multiple comorbidities, more significantly VDRF and currently cared for at [facility]. He was found to have a pseudoaneurysm in his right groin where his dialysis catheter was located, that was repaired yesterday. He was also noted to have a sacral wound and general surgery was asked to consult. Constitutional: No chills, No febrile Eyes: No visual change ENT: No congestion Respiratory: No cough, No shortness of breath Cardiovascular: No chest pain, No lightheadedness, No palpitations Gastrointestinal: No constipation, No vomiting Genitourinary: No bleeding Musculoskeletal: other (gen weakness) Skin: No bruising, No erythema Neurologic: No confusion, No focal-weakness Psychological: No nl mood/affect Past Medical History ventilator dependent respiratory failure end-stage renal disease CHF arrhythmia encephalopathy anxiety disorder, benign prostatic hypertrophy sacral pressure ulcer Past Surgical History trach peg hemodialysis catheter placement Family History Significant Family History: no pertinent family hx Social History Alcohol Use: none Drug Use: none Exam/Review of Systems Vital Signs Vitals Vital Signs Date Time Temp Pulse Resp B/P Pulse Ox O2 Delivery O2 Flow Rate FiO2 09/28/17 12:25 93 09/28/17 10:05 20 09/28/17 05:15 91/52 99 09/28/17 05:02 50 09/28/17 04:00 98.8 Mechanical Ventilator Intake and Output 09/27/17 09/27/17 09/28/17 15:00 23:00 07:00 Intake Total 212.5 ml 175.0 ml Output Total 110 ml 80 ml Balance 102.5 ml 95.0 ml Exam Constitutional: alert, oriented Psych: nl mood/affect Head: atraumatic, normocephalic Eyes: nl lids, nl sclera ENMT: mucosa pink and moist, nl nasal mucosa & septum Neck: non-tender, other (trach-vent), supple Respiratory: diminished breath sounds, No labored breathing Cardiovascular: irregular rhythm, other (afib) Gastrointestinal: non-tender, other (peg), soft Genitourinary - Male: nl penis, nl scrotum Musculoskeletal: nl extremities to inspection, swelling (right leg 3+; left leg 2+) Extremities: normal pulses (right : 4+dp/popliteal pulse) Neurological: No nl speech, No nl strength (gen weakness) Skin: other (right femoral drain in place draining serosanguineous drainage), No rash or lesions Lymph: No nl lymph nodes Results Result Diagram: 09/28/1762409/28/1725 Results 24 hrs Laboratory Tests Test 09/27/17 21:15 09/28/17 06:00 09/28/17 06:25 09/28/17 08:37 Blood Gas Specimen Source Blood arterial Blood arterial Arterial Blood Date Drawn 09/27/2017 9:15:18 PM 09/28/2017 6:10:57 AM Arterial Blood pH (Temp corrected) 7.311 L 7.346 L Arterial Blood pCO2 (Temp correct) 48.0 H 47.0 H Arterial Blood pO2 (Temp corrected) 147.9 H 162.7 H Arterial Blood HCO3 23.7 25.1 Arterial Blood Base Excess -2.5 -0.9 Arterial Blood Oxygen Saturation 98.6 99.0 Floyd Test ACCEPTAB ACCEPTAB Arterial Blood Gas Puncture Site Right Radial Right Radial Arterial Blood Carboxyhemoglobin 0.8 1.1 Arterial Blood Methemoglobin 0.7 0.4 Blood Gas A-a O2 Differential 227.1 H 140.9 H Oxyhemoglobin Percent 97.1 97.5 Total Hemoglobin 7.8 L 13.9 Blood Gas Temperature 37.0 37.0 Blood Gas Respiration Rate 12.0 12.0 Blood Gas Actual Respiration Rate 24 20 Blood Gas Modality VENT - AC VENT - AC FiO2 60.0 50.0 Blood Gas Tidal Volume 450.0 450.0 Blood Gas Low PEEP Setting 5.0 5.0 Blood Gas Notified Whom CORTEZ Blood Gas Notified Time 09/27/2017 9:39:20 PM 09/28/2017 6:22:46 AM White Blood Count 12.3 #H Red Blood Count 3.10 #L Hemoglobin 9.8 #L Hematocrit 30.8 L Mean Corpuscular Volume 99.4 Mean Corpuscular Hemoglobin 31.6 Mean Corpuscular Hemoglobin Concent 31.8 L Red Cell Distribution Width 21.2 H Platelet Count 110 #L Mean Platelet Volume 12.1 H Neutrophils % 76.6 Lymphocytes % 8.3 L Monocytes % 7.5 Eosinophils % 6.3 Basophils % 0.5 Nucleated Red Blood Cells % 0.0 Neutrophils # 9.4 H Lymphocytes # 1.0 Monocytes # 0.9 Eosinophils # 0.8 H Basophils # 0.1 Nucleated Red Blood Cells # 0.0 Sodium Level 147 H Potassium Level 3.2 L Chloride Level 110 Carbon Dioxide Level 25 Anion Gap 15 Blood Urea Nitrogen 57 H Creatinine 2.82 H Glucose Level 120 Calcium Level 9.5 Lactic Acid Level 1.3 Total Bilirubin 0.1 L Direct Bilirubin 0.00 Indirect Bilirubin 0.1 Aspartate Amino Transf (AST/SGOT) 25 Alanine Aminotransferase (ALT/SGPT) 32 Alkaline Phosphatase 104 Total Protein 7.4 Albumin 2.7 L Medications Medications Current Medications Phenylephrine HCl/ Dextrose (Erwin-Syneph/D5W) 500 ml @ 37.5 mls/hr TITRATE IV Last administered on 09/27/17t 22:50; Admin Dose 37.5 MLS/HR; Start 09/27/17 at 22:30 Hydromorphone HCl 0.5 mg 0.5 mg Q4H PRN IV PAIN Last administered on 09/27/17 22:49; Admin Dose 0.5 MG; Start 09/27/17 at 23:00 Dextrose/Sodium Chloride (D5-NS) 1,000 ml @ 50 mls/hr Q20H IV ; Start at 03:00 Midodrine (Proamatine) 10 mg TID@,,17 GTB Last administered on 09/28/17 08:16; Admin Dose 10 MG; Start 09/28/17 at 09:00 Ascorbic Acid (Vitamin C) 500 mg DAILY GTB Last administered on 09/28/17 09: 24; Admin Dose 500 MG; Start 09/28/17 at 09:00 Cholecalciferol (Vitamin D) 2,000 unit DAILY GTB ; Start 09/28/17 at 09:00 Digoxin (Digoxin) 0.125 mg DAILY GTB Last administered on 09/28/17 09:27; Admin Dose 0.125 MG; Start 09/28/17 at 09:00 Docusate Sodium (Colace) 100 mg BID PO Last administered on 09/28/17 09:25; Admin Dose 100 MG; Start 09/28/17 at 09:00 Ferrous Sulfate (Feosol Liquid Cup) 300 mg DAILY GTB Last administered on 09/28 09:23; Admin Dose 300 MG; Start 09/28/17 at 09:00 Fluconazole (Diflucan) 100 mg DAILY GTB Last administered on 09/28/17 09:23; Admin Dose 100 MG; Start 09/28/17 at 09:00 Folic Acid (Folic Acid) 1 mg DAILY GTB Last administered on 09/28/17 09:25; Admin Dose 1 MG; Start 09/28/17 at 09:00 Acetaminophen/ Hydrocodone Bitart ([place] (5/325)) 1 tab DAILY GTB Last administered on 09/28/17 09:24; Admin Dose 1 TAB; Start 09/28/17 at 09:00 Lactobacillus Acidophilus/ Rhamnosus (Culturelle) 1 cap BID GTB Last administered on 09/28/17 09:25; Admin Dose 1 CAP; Start 09/28/17 at 09:00 Metoprolol Tartrate (Lopressor) 25 mg BID GTB Last administered on 09/28/17 09:24; Admin Dose 25 MG; Start 09/28/17 at 09:00 Multivitamins Therapeutic (Theragran) 1 tab DAILY GTB Last administered on 09:24; Admin Dose 1 TAB; Start 09/28/17 at 09:00 Sertraline HCl (Zoloft) 25 mg QHS GTB ; Start 09/28/17 at 21:00 Tramadol HCl (Ultram) 50 mg DAILY PRN GTB FOR WOUND CARE; Start 09/28/17 at 08 :00 Tramadol HCl (Ultram) 50 mg Q8 GTB ; Start 09/28/17 at 14:00 Zolpidem Tartrate (Ambien) 5 mg QHS PRN GTB INSOMNIA; Start 09/28/17 at 08:00 Diagnostic Test (Pha) (Accu-Chek) 1 ea 02 XX ; Start 09/29/17 at 02:00 Diagnostic Test (Pha) 1 ea 1 ea 02 XX ; Start 09/29/17 at 02:00 Meropenem/Sodium Chloride (Merrem 500mg/50 ml(Pmx)) 50 ml @ 100 mls/hr Q12 IVPB ; Start 09/28/17 at 09:00 MART AMEZQUITA NP Sep 28, 2017 13:02
[2017-09-28] MEDS: traMADol 50 MG TAB GTB SCH ×2 (14:53→21:57)
--- NOTE | 2017-09-28 15:04 | PN ---
DATE: 09/28/2017 SUBJECTIVE: The patient had a procedure for right femoral pseudoaneurysm repair yesterday. Current ly in the ICU on Levophed drip, in no distress. VITAL SIGNS: Temperature 97.3, pulse 79, respirations 20, blood pressure 96/52, saturation 100%. LABORATORY DATA: WBC 12.3, H and H 9.8 and 30.8, platelets 110, neutrophils 76.6. DIAGNOSTICS: Chest x-ray this morning revealed mild cardiomegaly and vascular congestion with patch y upper lung opacities. INDWELLINGS: Trach, PEG, right chest PermCath, Pathak catheter and right upper thigh EDY, also midlin e right upper extremity. ANTIMICROBIALS: The patient is currently on fluconazole. MICROBIOLOGY: Sacral wound culture grew Acinetobacter baumannii and VRE. Left hip fracture grew Ps eudomonas aeruginosa, Klebsiella ESBL. Urine culture grew Dulce glabrata. PHYSICAL EXAMINATION: GENERAL: Chronically ill-appearing, elderly man who is in no distress. HEENT: Head atraumatic, normocephalic. Sclerae anicteric. Buccal mucosa dry. NECK: Supple. CHEST: Rise symmetrical. Breath sounds diminished to bases. HEART: S1, S2. ABDOMEN: Distended, bowel tones hypoactive. G-tube site with erythema. EXTREMITIES: Bilateral edema. SKIN: No jaundice, no cyanosis. Positive anasarca. ASSESSMENT: 1. Septic shock. 2. 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 3. 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 4. Fungal urinary tract infection. 5. Chronic respiratory failure. 6. Right femoral pseudoaneurysm, status post surgical repair. 7. History of deep venous thrombosis, status post inferior vena cava filter placement. 8. Anemia. 9. Atrial fibrillation. 10. Failure to thrive. PLAN: We are going to start the patient on daptomycin and colistin. Continue fluconazole. Continu e local wound care as per surgical team. Vent management as per pulmonary. Dictated By: CLAYTON SHANKAR TURBINE OPERATOR for CASSI TAVERAS/NORM Conf#: [id number] DID#: [id number] CC: PHILIPPE JUARES DO;*EndCC*
[2017-09-28] MEDS: PHENYLephrine 40 MG in DEXTROSE 5% 496 ML IV SCH (15:50)
[2017-09-28] MEDS: COLISTIMETHATE 75 MG in SOD CHLORIDE 0.9% 100 ML IVPB SCH (15:52)
[2017-09-28] MEDS ORDERED: DAPTOMYCIN 280 MG in SOD CHLORIDE 0.9% 100 ML IVPB SCH (16:00)
--- NOTE | 2017-09-28 16:20 | CONS ---
Date/Time of Note Date/Time of Note DATE: 09/28/17 TIME: 16:18 Assessment/Plan Assessment/Plan Additional Assessment/Plan 1. Repair of pseudoaneurysm right femoral artery 2. Shock secondary to volume depletion versus sepsis 3. Nontoxic megacolon resolved 4. Dysphagia status post PEG 5. Vent dependent respiratory failure 6. Anemia no evidence of active bleeding. 7. Renal failure. 8. Decubitus ulcer Plan Continue all supportive care Continue feeding Monitor for active GI bleeding Consultation Date/Type/Reason Admit Date/Time Sep 27, 2017 at 21:00 Initial Consult Date 09/28/17 Type of Consultation: surgical Referring Provider: PHILIPPE JUARES DO 24 HR Interval Summary Free Text/Dictation Sent transferred to intensive care unit after surgery for pseudoaneurysm of right femoral artery. Exam/Review of Systems Vital Signs Vitals Vital Signs Date Time Temp Pulse Resp B/P Pulse Ox O2 Delivery O2 Flow Rate FiO2 09/28/17 15:00 80 20 120/68 100 09/28/17 12:00 99.0 09/28/17 10:45 Mechanical Ventilator 09/28/17 08:00 60 Intake and Output 09/27/17 09/27/17 09/28/17 15:00 23:00 07:00 Intake Total 212.5 ml 231.25 ml Output Total 110 ml 80 ml Balance 102.5 ml 151.25 ml Exam Constitutional: alert, oriented, well developed Psych: nl mood/affect, no complaints Head: atraumatic, normocephalic Eyes: EOMI, PERRL, nl conjunctiva, nl lids, nl sclera ENMT: nl external ears & nose, nl lips & teeth, nl nasal mucosa & septum Neck: non-tender, supple Respiratory: clear to auscultation, normal air movement Cardiovascular: nl pulses, regular rate and rhythm Gastrointestinal: nl liver, spleen, non-tender, soft Musculoskeletal: nl extremities to inspection, nl gait and stance Extremities: normal pulses Neurological: [employer] II-XII intact, nl mental status, nl speech, nl strength Skin: nl turgor, No rash or lesions Lymph: nl lymph nodes Results Result Diagram: 09/28/17 0625 09/28/17 0625 Results 24 hrs Laboratory Tests Test 09/27/17 21:15 09/28/17 06:00 09/28/17 06:25 09/28/17 08:37 Blood Gas Specimen Source Blood arterial Blood arterial Arterial Blood Date Drawn 09/27/2017 9:15:18 PM 09/28/2017 6:10:57 AM Arterial Blood pH (Temp corrected) 7.311 L 7.346 L Arterial Blood pCO2 (Temp correct) 48.0 H 47.0 H Arterial Blood pO2 (Temp corrected) 147.9 H 162.7 H Arterial Blood HCO3 23.7 25.1 Arterial Blood Base Excess -2.5 -0.9 Arterial Blood Oxygen Saturation 98.6 99.0 Floyd Test ACCEPTAB ACCEPTAB Arterial Blood Gas Puncture Site Right Radial Right Radial Arterial Blood Carboxyhemoglobin 0.8 1.1 Arterial Blood Methemoglobin 0.7 0.4 Blood Gas A-a O2 Differential 227.1 H 140.9 H Oxyhemoglobin Percent 97.1 97.5 Total Hemoglobin 7.8 L 13.9 Blood Gas Temperature 37.0 37.0 Blood Gas Respiration Rate 12.0 12.0 Blood Gas Actual Respiration Rate 24 20 Blood Gas Modality VENT - AC VENT - AC FiO2 60.0 50.0 Blood Gas Tidal Volume 450.0 450.0 Blood Gas Low PEEP Setting 5.0 5.0 Blood Gas Notified Whom [facility] Blood Gas Notified Time 09/27/2017 9:39:20 PM 09/28/2017 6:22:46 AM White Blood Count 12.3 #H Red Blood Count 3.10 #L Hemoglobin 9.8 #L Hematocrit 30.8 L Mean Corpuscular Volume 99.4 Mean Corpuscular Hemoglobin 31.6 Mean Corpuscular Hemoglobin Concent 31.8 L Red Cell Distribution Width 21.2 H Platelet Count 110 #L Mean Platelet Volume 12.1 H Neutrophils % 76.6 Lymphocytes % 8.3 L Monocytes % 7.5 Eosinophils % 6.3 Basophils % 0.5 Nucleated Red Blood Cells % 0.0 Neutrophils # 9.4 H Lymphocytes # 1.0 Monocytes # 0.9 Eosinophils # 0.8 H Basophils # 0.1 Nucleated Red Blood Cells # 0.0 Sodium Level 147 H Potassium Level 3.2 L Chloride Level 110 Carbon Dioxide Level 25 Anion Gap 15 Blood Urea Nitrogen 57 H Creatinine 2.82 H Glucose Level 120 Calcium Level 9.5 Lactic Acid Level 1.3 Total Bilirubin 0.1 L Direct Bilirubin 0.00 Indirect Bilirubin 0.1 Aspartate Amino Transf (AST/SGOT) 25 Alanine Aminotransferase (ALT/SGPT) 32 Alkaline Phosphatase 104 Total Protein 7.4 Albumin 2.7 L Test 09/28/17 13:24 Bedside Glucose 130 Medications Medications Current Medications Phenylephrine HCl/ Dextrose (Erwin-Syneph/D5W) 500 ml @ 37.5 mls/hr TITRATE IV Last administered on 09/28/17 15:50; Admin Dose 60 MLS/HR; Start 09/27/17 at 22:30 Hydromorphone HCl 0.5 mg 0.5 mg Q4H PRN IV PAIN Last administered on 09/27/17 22:49; Admin Dose 0.5 MG; Start 09/27/17 at 23:00 Dextrose/Sodium Chloride (D5-NS) 1,000 ml @ 50 mls/hr Q20H IV ; Start at 03:00 Midodrine (Proamatine) 10 mg TID@,,17 GTB Last administered on 09/28/17 13:14; Admin Dose 10 MG; Start 09/28/17 at 09:00 Ascorbic Acid (Vitamin C) 500 mg DAILY GTB Last administered on 09/28/17 09: 24; Admin Dose 500 MG; Start 09/28/17 at 09:00 Cholecalciferol (Vitamin D) 2,000 unit DAILY GTB Last administered on 13:03; Admin Dose 2,000 UNIT; Start 09/28/17 at 09:00 Digoxin (Digoxin) 0.125 mg DAILY GTB Last administered on 09/28/17 09:27; Admin Dose 0.125 MG; Start 09/28/17 at 09:00 Docusate Sodium (Colace) 100 mg BID PO Last administered on 09/28/17 09:25; Admin Dose 100 MG; Start 09/28/17 at 09:00 Ferrous Sulfate (Feosol Liquid Cup) 300 mg DAILY GTB Last administered on 09/28 09:23; Admin Dose 300 MG; Start 09/28/17 at 09:00 Fluconazole (Diflucan) 100 mg DAILY GTB Last administered on 09/28/17 09:23; Admin Dose 100 MG; Start 09/28/17 at 09:00 Folic Acid (Folic Acid) 1 mg DAILY GTB Last administered on 09/28/17 09:25; Admin Dose 1 MG; Start 09/28/17 at 09:00 Acetaminophen/ Hydrocodone Bitart ([place] (5/325)) 1 tab DAILY GTB Last administered on 09/28/17 09:24; Admin Dose 1 TAB; Start 09/28/17 at 09:00 Lactobacillus Acidophilus/ Rhamnosus (Culturelle) 1 cap BID GTB Last administered on 09/28/17 09:25; Admin Dose 1 CAP; Start 09/28/17 at 09:00 Metoprolol Tartrate (Lopressor) 25 mg BID GTB Last administered on 09/28/17 09:24; Admin Dose 25 MG; Start 09/28/17 at 09:00 Multivitamins Therapeutic (Theragran) 1 tab DAILY GTB Last administered on 09:24; Admin Dose 1 TAB; Start 09/28/17 at 09:00 Sertraline HCl (Zoloft) 25 mg QHS GTB ; Start 09/28/17 at 21:00 Tramadol HCl (Ultram) 50 mg DAILY PRN GTB FOR WOUND CARE; Start 09/28/17 at 08 :00 Tramadol HCl (Ultram) 50 mg Q8 GTB Last administered on 09/28/17 14:53; Admin Dose 50 MG; Start 09/28/17 at 14:00 Zolpidem Tartrate (Ambien) 5 mg QHS PRN GTB INSOMNIA; Start 09/28/17 at 08:00 Diagnostic Test (Pha) (Accu-Chek) 1 ea 02 XX ; Start 09/29/17 at 02:00 Diagnostic Test (Pha) 1 ea 1 ea 02 XX ; Start 09/29/17 at 02:00 Meropenem/Sodium Chloride 50 ml @ 100 mls/hr Q12 IVPB Last administered on 13:04; Admin Dose 100 MLS/HR; Start 09/28/17 at 09:00 Daptomycin 280 mg/ Sodium Chloride 100 ml @ 200 mls/hr Q24H IVPB ; Start 09/28 at 16:00 Colistimethate Sodium/Sodium Chloride ([place]-Mycin/NS) 100 ml @ 200 mls/hr Q24H IVPB Last administered on 09/28/17 15:52; Admin Dose 200 MLS/HR; Start 09/28 at 14:45 LIANNA BOWLING MD Sep 28, 2017 16:20
--- NOTE | 2017-09-28 16:25 | PN ---
Date/Time of Note Date/Time of Note DATE: 09/28/17 TIME: 16:23 Assessment/Plan Lines/Catheters IV Catheter Type (from Nrsg): Mid Line Pathak in Place (from Nrsg): No Assessment/Plan Chief Complaint/Hosp Course SP Repair Right femoral artery pseudoaneursm will continue EDY sxn Problems: Subjective 24 Hr Interval Summary Constitutional: improved Pain Control: mild Exam/Review of Systems Vital Signs Vitals Vital Signs Date Time Temp Pulse Resp B/P Pulse Ox O2 Delivery O2 Flow Rate FiO2 09/28/17 15:00 80 20 120/68 100 09/28/17 12:00 99.0 09/28/17 10:45 Mechanical Ventilator 09/28/17 08:00 60 Intake and Output 09/27/17 09/27/17 09/28/17 15:00 23:00 07:00 Intake Total 212.5 ml 231.25 ml Output Total 110 ml 80 ml Balance 102.5 ml 151.25 ml Exam ENMT: mucosa pink and moist, nl external ears & nose, nl lips & teeth, nl nasal mucosa & septum Neck: non-tender, supple Respiratory: clear to auscultation, normal air movement Cardiovascular: nl pulses, regular rate and rhythm Results Result Diagram: 09/28/1725 09/28/17 0625 RON CASTRO MD Sep 28, 2017 16:25
[2017-09-28] MEDS: HYDROmorphONE 0.5 MG/0.5 ML SYG IV PRN (17:00)
--- NOTE | 2017-09-28 18:27 | CONS ---
Date/Time of Note Date/Time of Note DATE: 09/28/17 TIME: 18:16 Assessment/Plan Assessment/Plan Chief Complaint/Hosp Course 1. SHOCK: probably septic 2. Afib: persistent/ chronic now. 3. hypoxemic resp failure: s/p trach vent dependent now. 4. hx anemia and GI bleed: off of any anticoagulation 5. 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 s/p multiple infections 8. dysphagia: s/p PEG Recommendations: I will continue with the Erwin-Synephrine drip as needed. Try to keep the blood pressure systolic more than 85-90. Antibiotics are being managed as per IDs recommendations. Vent support will be continued. Hemodialysis will be continued. Heart rate clinically remained stable on Erwin-Synephrine drip. We can give very low-dose of digoxin on an as-needed basis if the heart rate continues to be increasing and becomes too elevated. However the current rate appears to be very well controlled. Transfusion as needed will be given.. Patient currently off of full anticoagulation due to concern about history of severe anemia as well as GI bleed and OB positive stool. Continue with the ICU care. More than 40 minutes of critical care time was spent in management and treatment of this critically ill patient excluding any procedures. Thank you for his referral. I will continue to follow along with you. DIOR JEFFERSON MD [facility] Problems: Consultation Date/Type/Reason Admit Date/Time Sep 27, 2017 at 21:00 Date of Consultation: Sep 28, 2017 Type of Consultation: cardiology Reason for Consultation shock. Afib Referring Provider: PHILIPPE JUARES DO Hx of Present Illness cc: s/p femoral pseudoaneurysm repair. Shock. Respiratory failure. HPI: Thank you for his referral. History was obtained from discussion with the patient and discussion with the staff extensive review of the old chart. Patient also very well-known to me from previous admission to the hospital. Also case discussed with multiple physicians. This is a pleasant 87-year-old gentleman with multiple complicated medical history who underwent pseudoaneurysm repair. Patient was noted to be hypotensive and in shock. And has been transferred to intensive care unit on Erwin-Synephrine drip. Patient has chronic respiratory failure with tracheostomy currently on the vent. His heart rate has remained stable on Erwin-Synephrine drip. His blood pressures are borderline low but stable on Erwin-Synephrine drip. He denies any chest pain or pressure to me. He denies any palpitation to me. He has small shortness of breath but is on the vent appear to be stable. No active bleeding is reported. PAST MEDICAL HISTORY: History of hypoxemic respiratory failure, status post tracheostomy, vent dependent, history of COPD, history of mild aortic stenosis, atrial fibrillation previously paroxysmal, currently has become persistent, history of GI bleed, hypertension, and renal failure on dialysis. MEDICATIONS: As per medical reconciliation sheet which was personally reviewed.. PAST SURGICAL HISTORY: Status post dialysis access placement, tracheostomy, G- tube placement. S/P right pseudoaneurysm repair 09/27/2017 SOCIAL HISTORY: Does not smoke or drink at this point. Previously has been a smoker, apparently. FAMILY HISTORY: No reported coronary artery disease. ALLERGIES: NO REPORTED DRUG ALLERGIES. ROS: Patient has been bedbound. All other are negative except for above- mentioned. Constitutional: No chills, No febrile Eyes: No visual change ENT: No congestion Respiratory: No cough, No shortness of breath Cardiovascular: No chest pain, No lightheadedness, No palpitations Gastrointestinal: No constipation, No vomiting Genitourinary: No bleeding Musculoskeletal: other (gen weakness) Skin: No bruising, No erythema Neurologic: No confusion, No focal-weakness Psychological: nl mood/affect, no complaints Social History Alcohol Use: none Drug Use: none Exam/Review of Systems Vital Signs Vitals Vital Signs Date Time Temp Pulse Resp B/P Pulse Ox O2 Delivery O2 Flow Rate FiO2 09/28/17 16:00 74 09/28/17 15:40 19 100 50 09/28/17 15:00 120/68 09/28/17 12:00 99.0 09/28/17 10:45 Mechanical Ventilator Intake and Output 09/27/17 09/27/17 09/28/17 15:00 23:00 07:00 Intake Total 212.5 ml 231.25 ml Output Total 110 ml 80 ml Balance 102.5 ml 151.25 ml Exam General: Thin. s/p trach on vent. no acute distress HEENT: NC/AT. pupils are equal. round. NECK: s/p trach. . no stridor. CV: irregularly irregular. systolic murmur; no gallop or rubs. PULM: no wheezing . + rhonchi. GI: SOFT, NT, ND, no rebound or guarding vascular: R fem s/p surgery with dressing and drainage . Extremity: + B/L LE edema. no clubbing. neuro: awake and alert, responds appropriately Psych: calm and pleasant rectal: deferred : normal male Derm: With diffuse ecchymosis throughout the body. ECHO: 1. Normal left ventricular systolic function. Normal left ventricular cavity size. Moderate concentric left ventricular hypertrophy. Ejection fraction is visually estimated at 65 %. Abnormal Diastolic Function. 2. Aortic sclerosis without stenosis. Electronically Signed By: Juan M Bender 12-Aug-2017 12:11:31 -0700 Results Result Diagram: 09/28/1762409/28/17624 Results 24 hrs Laboratory Tests Test 09/27/17 21:15 09/28/17 06:00 09/28/17 06:25 09/28/17 08:37 Blood Gas Specimen Source Blood arterial Blood arterial Arterial Blood Date Drawn 09/27/2017 9:15:18 PM 09/28/2017 6:10:57 AM Arterial Blood pH (Temp corrected) 7.311 L 7.346 L Arterial Blood pCO2 (Temp correct) 48.0 H 47.0 H Arterial Blood pO2 (Temp corrected) 147.9 H 162.7 H Arterial Blood HCO3 23.7 25.1 Arterial Blood Base Excess -2.5 -0.9 Arterial Blood Oxygen Saturation 98.6 99.0 Floyd Test ACCEPTAB ACCEPTAB Arterial Blood Gas Puncture Site Right Radial Right Radial Arterial Blood Carboxyhemoglobin 0.8 1.1 Arterial Blood Methemoglobin 0.7 0.4 Blood Gas A-a O2 Differential 227.1 H 140.9 H Oxyhemoglobin Percent 97.1 97.5 Total Hemoglobin 7.8 L 13.9 Blood Gas Temperature 37.0 37.0 Blood Gas Respiration Rate 12.0 12.0 Blood Gas Actual Respiration Rate 24 20 Blood Gas Modality VENT - AC VENT - AC FiO2 60.0 50.0 Blood Gas Tidal Volume 450.0 450.0 Blood Gas Low PEEP Setting 5.0 5.0 Blood Gas Notified Whom [facility] Blood Gas Notified Time 09/27/2017 9:39:20 PM 09/28/2017 6:22:46 AM White Blood Count 12.3 #H Red Blood Count 3.10 #L Hemoglobin 9.8 #L Hematocrit 30.8 L Mean Corpuscular Volume 99.4 Mean Corpuscular Hemoglobin 31.6 Mean Corpuscular Hemoglobin Concent 31.8 L Red Cell Distribution Width 21.2 H Platelet Count 110 #L Mean Platelet Volume 12.1 H Neutrophils % 76.6 Lymphocytes % 8.3 L Monocytes % 7.5 Eosinophils % 6.3 Basophils % 0.5 Nucleated Red Blood Cells % 0.0 Neutrophils # 9.4 H Lymphocytes # 1.0 Monocytes # 0.9 Eosinophils # 0.8 H Basophils # 0.1 Nucleated Red Blood Cells # 0.0 Sodium Level 147 H Potassium Level 3.2 L Chloride Level 110 Carbon Dioxide Level 25 Anion Gap 15 Blood Urea Nitrogen 57 H Creatinine 2.82 H Glucose Level 120 Calcium Level 9.5 Lactic Acid Level 1.3 Total Bilirubin 0.1 L Direct Bilirubin 0.00 Indirect Bilirubin 0.1 Aspartate Amino Transf (AST/SGOT) 25 Alanine Aminotransferase (ALT/SGPT) 32 Alkaline Phosphatase 104 Total Protein 7.4 Albumin 2.7 L Test 09/28/17 13:24 09/28/17 17:09 Bedside Glucose 130 105 Medications Medications Current Medications Phenylephrine HCl/ Dextrose (Erwin-Syneph/D5W) 500 ml @ 37.5 mls/hr TITRATE IV Last administered on 09/28/17 15:50; Admin Dose 60 MLS/HR; Start 09/27/17 at 22:30 Hydromorphone HCl 0.5 mg 0.5 mg Q4H PRN IV PAIN Last administered on 17:00; Admin Dose 0.5 MG; Start 09/27/17 at 23:00 Dextrose/Sodium Chloride (D5-NS) 1,000 ml @ 50 mls/hr Q20H IV ; Start at 03:00 Midodrine (Proamatine) 10 mg TID@ GTB Last administered on 09/28/17 17:07; Admin Dose 10 MG; Start 09/28/17 at 09:00 Ascorbic Acid (Vitamin C) 500 mg DAILY GTB Last administered on 09/28/17 09: 24; Admin Dose 500 MG; Start 09/28/17 at 09:00 Cholecalciferol (Vitamin D) 2,000 unit DAILY GTB Last administered on 13:03; Admin Dose 2,000 UNIT; Start 09/28/17 at 09:00 Digoxin (Digoxin) 0.125 mg DAILY GTB Last administered on 09/28/17 09:27; Admin Dose 0.125 MG; Start 09/28/17 at 09:00 Docusate Sodium (Colace) 100 mg BID PO Last administered on 09/28/17 09:25; Admin Dose 100 MG; Start 09/28/17 at 09:00 Ferrous Sulfate (Feosol Liquid Cup) 300 mg DAILY GTB Last administered on 09/28 09:23; Admin Dose 300 MG; Start 09/28/17 at 09:00 Fluconazole (Diflucan) 100 mg DAILY GTB Last administered on 09/28/17 09:23; Admin Dose 100 MG; Start 09/28/17 at 09:00 Folic Acid (Folic Acid) 1 mg DAILY GTB Last administered on 09/28/17 09:25; Admin Dose 1 MG; Start 09/28/17 at 09:00 Acetaminophen/ Hydrocodone Bitart ([place] (5/325)) 1 tab DAILY GTB Last administered on 09/28/17 09:24; Admin Dose 1 TAB; Start 09/28/17 at 09:00 Lactobacillus Acidophilus/ Rhamnosus (Culturelle) 1 cap BID GTB Last administered on 09/28/17 09:25; Admin Dose 1 CAP; Start 09/28/17 at 09:00 Metoprolol Tartrate (Lopressor) 25 mg BID GTB Last administered on 09/28/17 09:24; Admin Dose 25 MG; Start 09/28/17 at 09:00 Multivitamins Therapeutic (Theragran) 1 tab DAILY GTB Last administered on 09:24; Admin Dose 1 TAB; Start 09/28/17 at 09:00 Sertraline HCl (Zoloft) 25 mg QHS GTB ; Start 09/28/17 at 21:00 Tramadol HCl (Ultram) 50 mg DAILY PRN GTB FOR WOUND CARE; Start 09/28/17 at 08 :00 Tramadol HCl (Ultram) 50 mg Q8 GTB Last administered on 09/28/17 14:53; Admin Dose 50 MG; Start 09/28/17 at 14:00 Zolpidem Tartrate (Ambien) 5 mg QHS PRN GTB INSOMNIA; Start 09/28/17 at 08:00 Diagnostic Test (Pha) (Accu-Chek) 1 ea 02 XX ; Start 09/29/17 at 02:00 Diagnostic Test (Pha) 1 ea 1 ea 02 XX ; Start 09/29/17 at 02:00 Meropenem/Sodium Chloride 50 ml @ 100 mls/hr Q12 IVPB Last administered on 13:04; Admin Dose 100 MLS/HR; Start 09/28/17 at 09:00 Daptomycin 280 mg/ Sodium Chloride 100 ml @ 200 mls/hr Q24H IVPB Last administered on 09/28/17 17:07; Admin Dose 200 MLS/HR; Start 09/28/17 at 16: 00; Stop 09/28/17 at 23:59 Colistimethate Sodium 75 mg/ Sodium Chloride 100 ml @ 200 mls/hr Q24H IVPB Last administered on 09/28/17 15:52; Admin Dose 200 MLS/HR; Start 09/28/17 at 14:45 Daptomycin/Sodium Chloride (Cubicin/NS) 100 ml @ 200 mls/hr Q48H IVPB ; Start 09/30/17 at 17:00 DIOR JEFFERSON MD Sep 28, 2017 18:27
[2017-09-28] MEDS: SERTRALINE 50 MG TAB GTB SCH (21:37)
[2017-09-28] MEDS: DEXTROSE 5%-0.9% NACL 1,000 ML IV SCH (21:37)
[2017-09-29] VITALS (104 sets, daily range): BP systolic 77–110; BP diastolic 40–64; PULSE 67–94; RESP 7–27; Ht 170.2 cm; Wt 73.0 kg
[2017-09-29] MEDS: PHENYLephrine 40 MG in DEXTROSE 5% 496 ML IV SCH ×4 (01:05→17:49)
[2017-09-29] MEDS: ACCU-CHEK XX SCH ×2 (01:05)
[2017-09-29] MEDS: traMADol 50 MG TAB GTB SCH ×3 (06:15→22:00)
[2017-09-29 06:49] LABS: ABNORMAL IP MESSAGE 1; BASOPHIL # 0.1 10^3/ul (0.0-0.1); BASOPHILS % 0.4 % (0.0-2.0); EOSINOPHILS # 0.8 10^3/ul (0.0-0.5); EOSINOPHILS % 6.2 % (0.0-7.0); HEMATOCRIT 31.8 % (42.0-52.0); HEMOGLOBIN 9.8 g/dl (14.0-18.0); LYMPHOCYTES # 1.2 10^3/ul (0.8-2.9); MEAN CORPUSCULAR HEMOGLOBIN 30.4 pg (29.0-33.0); MEAN CORPUSCULAR HGB CONC 30.8 g/dl (32.0-37.0); MEAN CORPUSCULAR VOLUME 98.8 fl (82.0-101.0); MONOCYTE # 0.9 10^3/ul (0.3-0.9); MONOCYTES % 7.5 % (0.0-11.0); NEUTROPHIL # 9.3 10^3/ul (1.6-7.5); NEUTROPHILS % 75.3 % (39.0-77.0); PLATELET COUNT 104 10^3/UL (140-415); POSITIVE DIFF @See below; RED BLOOD COUNT 3.22 10^6/ul (4.70-6.10); RED CELL DISTRIBUTION WIDTH 20.3 % (11.5-14.5); WHITE BLOOD COUNT 12.4 10^3/ul (4.8-10.8)
[2017-09-29 07:25] LABS: CREATININE 2.3 mg/dl (0.61-1.24); MAGNESIUM 2.2 mg/dl (1.7-2.5); PHOSPHORUS 3.6 mg/dl (2.5-4.9); POTASSIUM 3.8 mmol/L (3.5-5.1)
[2017-09-29] MEDS: INSULIN ASPART [NOVOLOG] 3 ML PEN SC SCH ×4 (09:00→20:56)
[2017-09-29] MEDS: METOPROLOL 25 MG TAB GTB SCH ×2 (09:00→20:55)
--- NOTE | 2017-09-29 09:21 | CONS ---
Date/Time of Note Date/Time of Note DATE: 09/29/17 TIME: 09:18 Consult Date/Type/Reason Admit Date/Time Sep 27, 2017 at 21:00 Initial Consult Date 09/28/17 Type of Consultation: im neph Ordering Provider: PHILIPPE JUARES This is an 87-year-old male with a past medical history of ventilatory dependent respiratory failure, history of end-stage renal disease, history of hypertension, BPH, CHF, coronary artery disease, AFib, who presents to [facility] from [facility] after undergoing pseudoaneurysm repair. The patient was initially at [place] to [facility] where he was initiated dialysis. He was then transferred to [facility] for continued care. 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 The patient was evaluated by vascular surgeon, Dr. Chu, and yesterday underwent for a surgical repair pseudoaneurysm without any intraoperative complications. Postoperatively, patient was in the intensive care unit, was noted to be hypotensive and started on pressor support. There have been no reports of any active hemoptysis, hematemesis, hematochezia. PAST MEDICAL HISTORY: As stated above, history of ventilator dependent respiratory failure, history of end-stage renal disease, history of CHF, history of arrhythmia, history of encephalopathy has a history of anxiety disorder, history of benign prostatic hypertrophy. MEDICATIONS: The patient's medications have been reviewed REVIEW OF SYSTEMS: Unable to do adequate review of systems as the patient is altered. Pertinent positives stated in HPI, otherwise negative. PHYSICAL EXAMINATION: VITAL SIGNS: Blood pressure is currently 100/82, respirations 16, pulse 82, temperature 98.3. HEENT: Head is normocephalic. Pupils are reactive to light. NECK: Supple, neck shows a trach. HEART: Irregularly irregular. LUNGS: Show diminished breath sounds at base. ABDOMEN: Soft, nontender to palpation without rebound or guarding. Positive PEG. EXTREMITIES: Negative for clubbing, cyanosis. Positive edema on the right groin. Please note that there is a EDY drain in dressings clean, dry, intact. DERMATOLOGIC: No rashes. MUSCULOSKELETAL: Positive decubitus wound. NEUROLOGIC: Limited exam due to lack of patient cooperation. Objective Vital Signs Date Time Temp Pulse Resp B/P Pulse Ox O2 Delivery O2 Flow Rate FiO2 09/29/17 07:45 78 23 104/50 100 09/29/17 07:15 Mechanical Ventilator Trach Collar 09/29/17 05:40 40 09/29/17 04:15 98.5 Intake and Output 09/28/17 09/28/17 09/29/17 14:59 22:59 06:59 Intake Total 1162.50 ml 562.5 ml 1057.5 ml Output Total 2500 ml 15 ml Balance -1337.50 ml 547.5 ml 1057.5 ml Results/Medications Result Diagram: 09/29/17 0610 09/29/17 0610 Results 24 hrs Laboratory Tests Test 09/28/17 13:24 09/28/17 17:09 09/29/17 06:10 Bedside Glucose 130 105 White Blood Count 12.4 H Red Blood Count 3.22 L Hemoglobin 9.8 L Hematocrit 31.8 L Mean Corpuscular Volume 98.8 Mean Corpuscular Hemoglobin 30.4 Mean Corpuscular Hemoglobin Concent 30.8 L Red Cell Distribution Width 20.3 H Platelet Count 104 L Mean Platelet Volume 13.0 H Neutrophils % 75.3 Lymphocytes % 10.0 L Monocytes % 7.5 Eosinophils % 6.2 Basophils % 0.4 Nucleated Red Blood Cells % 0.0 Neutrophils # 9.3 H Lymphocytes # 1.2 Monocytes # 0.9 Eosinophils # 0.8 H Basophils # 0.1 Nucleated Red Blood Cells # 0.0 Sodium Level 141 Potassium Level 3.8 Chloride Level 107 Carbon Dioxide Level 26 Anion Gap 12 Blood Urea Nitrogen 43 #H Creatinine 2.30 H Glucose Level 98 Calcium Level 9.0 Phosphorus Level 3.6 Magnesium Level 2.2 Creatine Kinase < 20 L Medications Current Medications Phenylephrine HCl/ Dextrose (Erwin-Syneph/D5W) 500 ml @ 37.5 mls/hr TITRATE IV Last administered on 09/29/17 01:05; Admin Dose 52.5 MLS/HR; Start 09/27/17 at 22:30 Hydromorphone HCl (Dilaudid) 0.5 mg Q4H PRN IV PAIN Last administered on 17:00; Admin Dose 0.5 MG; Start 09/27/17 at 23:00 Midodrine (Proamatine) 10 mg TID@ GTB Last administered on 09/28/17 17:07; Admin Dose 10 MG; Start 09/28/17 at 09:00 Ascorbic Acid (Vitamin C) 500 mg DAILY GTB Last administered on 09/28/17 09: 24; Admin Dose 500 MG; Start 09/28/17 at 09:00 Cholecalciferol (Vitamin D) 2,000 unit DAILY GTB Last administered on 13:03; Admin Dose 2,000 UNIT; Start 09/28/17 at 09:00 Digoxin (Digoxin) 0.125 mg DAILY GTB Last administered on 09/28/17 09:27; Admin Dose 0.125 MG; Start 09/28/17 at 09:00 Docusate Sodium (Colace) 100 mg BID PO Last administered on 09/28/17 21:37; Admin Dose 100 MG; Start 09/28/17 at 09:00 Ferrous Sulfate (Feosol Liquid Cup) 300 mg DAILY GTB Last administered on 09/28 09:23; Admin Dose 300 MG; Start 09/28/17 at 09:00 Fluconazole (Diflucan) 100 mg DAILY GTB Last administered on 09/28/17 09:23; Admin Dose 100 MG; Start 09/28/17 at 09:00 Folic Acid (Folic Acid) 1 mg DAILY GTB Last administered on 09/28/17 09:25; Admin Dose 1 MG; Start 09/28/17 at 09:00 Acetaminophen/ Hydrocodone Bitart ([place] (5/325)) 1 tab DAILY GTB Last administered on 09/28/17 09:24; Admin Dose 1 TAB; Start 09/28/17 at 09:00 Lactobacillus Acidophilus/ Rhamnosus (Culturelle) 1 cap BID GTB Last administered on 09/28/17 21:37; Admin Dose 1 CAP; Start 09/28/17 at 09:00 Metoprolol Tartrate (Lopressor) 25 mg BID GTB Last administered on 09/28/17 09:24; Admin Dose 25 MG; Start 09/28/17 at 09:00 Multivitamins Therapeutic (Theragran) 1 tab DAILY GTB Last administered on 09:24; Admin Dose 1 TAB; Start 09/28/17 at 09:00 Sertraline HCl (Zoloft) 25 mg QHS GTB Last administered on 09/28/17 21:37; Admin Dose 25 MG; Start 09/28/17 at 21:00 Tramadol HCl (Ultram) 50 mg DAILY PRN GTB FOR WOUND CARE; Start 09/28/17 at 08 :00 Tramadol HCl (Ultram) 50 mg Q8 GTB Last administered on 09/29/17 06:15; Admin Dose 50 MG; Start 09/28/17 at 14:00 Zolpidem Tartrate (Ambien) 5 mg QHS PRN GTB INSOMNIA; Start 09/28/17 at 08:00 Diagnostic Test (Pha) (Accu-Chek) 1 ea 02 XX Last administered on 09/29/17 01 :05; Admin Dose 1 EA; Start 09/29/17 at 02:00 Diagnostic Test (Pha) 1 ea 1 ea 02 XX Last administered on 09/29/17 01:05; Admin Dose 1 EA; Start 09/29/17 at 02:00 Meropenem/Sodium Chloride 50 ml @ 100 mls/hr Q12 IVPB Last administered on 21:40; Admin Dose 100 MLS/HR; Start 09/28/17 at 09:00 Colistimethate Sodium 75 mg/ Sodium Chloride 100 ml @ 200 mls/hr Q24H IVPB Last administered on 09/28/17 15:52; Admin Dose 200 MLS/HR; Start 09/28/17 at 14:45 Daptomycin 280 mg/ Sodium Chloride 100 ml @ 200 mls/hr Q48H IVPB ; Start 09/30 at 17:00 Dextrose/Sodium Chloride (D5-NS) 1,000 ml @ 20 mls/hr Q24H IV Last administered on 09/28/17 21:37; Admin Dose 20 MLS/HR; Start 09/28/17 at 19:00 Insulin Aspart (Novolog Insulin Pen) NOVOLOG *MILD* ALGORITHM Q4 SC ; Start 10/05 at 09:00 Assessment/Plan Chief Complaint/Hosp Course 1. Right femoral pseudoaneurysm status post surgical repair. Plan is to follow up with vascular surgeon, Dr. Chu for recommendations. Continue wound care. 2. Shock, etiology is possibly multifactorial, questionable possible sepsis, possible hemodynamics. Plan at this point is to check blood cultures, check urine culture. We will check a chest x-ray. We will check a procalcitonin level, lactic acid level. Will start the patient on empiric antibiotics. We will place an ID consult for evaluation. 3. Ventilator dependent respiratory failure. Vent settings, ABG is reviewed. Continue to monitor. Follow up with pulmonary. 4. End-stage renal disease. Patient's access is PermCath, will anticipate hemodialysis. Will dialyze for 3 hours on 3 K bath, calcium 2.5. 5. Anemia. Monitor hemoglobin and hematocrit levels. Will give Epogen. 6. Mineral bone disorder. Monitor calcium and phosphorus levels. 7. Atrial fibrillation, currently rate controlled. Continue medical management and follow up cardiology. 8. Acute on chronic encephalopathy. Etiology is toxic metabolic. Continue to monitor. 9. Decubitus wound. We will place a wound care consult for evaluation. 10. Dysphagia, status post PEG. Resume tube feeding. 11. Gastrointestinal and deep venous thrombosis prophylaxis. Continue proton pump inhibitor and sequential leg squeezers. Problems: KELSEY HUBER MD Sep 29, 2017 09:21
[2017-09-29] MEDS: MEROPENEM 500MG/50 ML (PMX) 50 ML IVPB SCH ×2 (09:40→20:55)
[2017-09-29] MEDS: FERROUS SULFATE 60 MG/ML 5ML CUP GTB SCH (09:41)
[2017-09-29] MEDS: CHOLECALCIFEROL 2,000 UNIT CAP GTB SCH (09:41)
[2017-09-29] MEDS: DOCUSATE SODIUM 100 MG CAP PO SCH ×2 (09:41→20:54)
[2017-09-29] MEDS: ASCORBIC ACID 500 MG TAB GTB SCH (09:42)
[2017-09-29] MEDS: FOLIC ACID 1 MG TAB GTB SCH (09:42)
[2017-09-29] MEDS: HYDROCODONE/APAP (5/325) TAB GTB SCH (09:42)
[2017-09-29] MEDS: MULTIVITAMINS THERAPEUTIC TAB GTB SCH (09:42)
[2017-09-29] MEDS: LACTOBACILLUS RHAMNOSUS CAP GTB SCH ×2 (09:42→20:55)
[2017-09-29] MEDS: DIGOXIN 0.125 MG TAB GTB SCH (09:42)
[2017-09-29] MEDS: FLUCONAZOLE 100 MG TAB GTB SCH (09:43)
[2017-09-29] MEDS: MIDODRINE 5 MG TAB GTB SCH ×3 (09:48→17:12)
--- NOTE | 2017-09-29 09:55 | CONS ---
Date/Time of Note Date/Time of Note DATE: 09/29/17 TIME: 09:52 Assessment/Plan Assessment/Plan Additional Assessment/Plan Ventilator setting; AC of 12, tidal volume 450, PEEP of 5, 40% FiO2. Next Patient currently on Erwin-Synephrine drip at 80 mics per minute. Chest x-ray was reviewed from yesterday afternoon which is showing bilateral fibrotic changes. Assessment and recommendations; 1. Patient admitted for repair of right femoral artery pseudoaneurysm. 2. 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 3. Persistent mild hypotension. 4. History of chronic renal insufficiency. 5. Sacral decubitus ulcers, patient on appropriate antibiotic regimen. Continue current supportive care. Wean off pressor support as tolerated. Consultation Date/Type/Reason Admit Date/Time Sep 27, 2017 at 21:00 Initial Consult Date 09/28/17 Type of Consultation: Pulmonary/critical care Referring Provider: PHILIPPE JUARES DO 24 HR Interval Summary Free Text/Dictation Patient's condition is still unstable. Requiring low-dose Erwin-Synephrine drip for hypotension. Patient however remains completely awake and alert. General exam; elderly male, on ventilator via tracheostomy, awake and alert. Watching television laying in bed. Exam/Review of Systems Vital Signs Vitals Vital Signs Date Time Temp Pulse Resp B/P Pulse Ox O2 Delivery O2 Flow Rate FiO2 09/29/17 08:00 40 09/29/17 08:00 86 09/29/17 07:45 23 104/50 100 09/29/17 07:15 Mechanical Ventilator Trach Collar 09/29/17 04:15 98.5 Intake and Output 09/28/17 09/28/17 09/29/17 15:00 23:00 07:00 Intake Total 1151.25 ml 620.0 ml 1065.0 ml Output Total 2500 ml 15 ml Balance -1348.75 ml 605.0 ml 1065.0 ml Exam HEENT exam; supple neck, no lymphadenopathy. Patient is edentulous. Tracheostomy in place. Pupils are small bilaterally. No neck masses. Chest exam; diminished breath sounds throughout. S1-S2 audible, no murmurs. Regular rhythm. Abdomen exam; soft, nondistended. Nontender. G-tube in place. Scaphoid. Bowel sounds audible. No organomegaly. Extremity exam; no peripheral edema. Dressing applied to right groin. Back examination; dressing applied over sacrum. CABLE INSPECTOR exam; patient awake and follows simple commands moves all 4 extremities on command. Results Result Diagram: 09/29/17 0610 09/29/17 0610 Results 24 hrs Laboratory Tests Test 09/28/17 13:24 09/28/17 17:09 09/29/17 06:10 09/29/17 09:47 Bedside Glucose 130 105 108 White Blood Count 12.4 H Red Blood Count 3.22 L Hemoglobin 9.8 L Hematocrit 31.8 L Mean Corpuscular Volume 98.8 Mean Corpuscular Hemoglobin 30.4 Mean Corpuscular Hemoglobin Concent 30.8 L Red Cell Distribution Width 20.3 H Platelet Count 104 L Mean Platelet Volume 13.0 H Neutrophils % 75.3 Lymphocytes % 10.0 L Monocytes % 7.5 Eosinophils % 6.2 Basophils % 0.4 Nucleated Red Blood Cells % 0.0 Neutrophils # 9.3 H Lymphocytes # 1.2 Monocytes # 0.9 Eosinophils # 0.8 H Basophils # 0.1 Nucleated Red Blood Cells # 0.0 Sodium Level 141 Potassium Level 3.8 Chloride Level 107 Carbon Dioxide Level 26 Anion Gap 12 Blood Urea Nitrogen 43 #H Creatinine 2.30 H Glucose Level 98 Calcium Level 9.0 Phosphorus Level 3.6 Magnesium Level 2.2 Creatine Kinase < 20 L Medications Medications Current Medications Phenylephrine HCl/ Dextrose (Erwin-Syneph/D5W) 500 ml @ 37.5 mls/hr TITRATE IV Last administered on 09/29/17 01:05; Admin Dose 52.5 MLS/HR; Start 09/27/17 at 22:30 Hydromorphone HCl (Dilaudid) 0.5 mg Q4H PRN IV PAIN Last administered on 17:00; Admin Dose 0.5 MG; Start 09/27/17 at 23:00 Midodrine (Proamatine) 10 mg TID@,,17 GTB Last administered on 09/28/17 17:07; Admin Dose 10 MG; Start 09/28/17 at 09:00 Ascorbic Acid (Vitamin C) 500 mg DAILY GTB Last administered on 09/29/17 09: 42; Admin Dose 500 MG; Start 09/28/17 at 09:00 Cholecalciferol (Vitamin D) 2,000 unit DAILY GTB Last administered on 09:41; Admin Dose 2,000 UNIT; Start 09/28/17 at 09:00 Digoxin (Digoxin) 0.125 mg DAILY GTB Last administered on 09/29/17 09:42; Admin Dose 0.125 MG; Start 09/28/17 at 09:00 Docusate Sodium (Colace) 100 mg BID PO Last administered on 09/29/17 09:41; Admin Dose 100 MG; Start 09/28/17 at 09:00 Ferrous Sulfate (Feosol Liquid Cup) 300 mg DAILY GTB Last administered on 09/29 09:41; Admin Dose 300 MG; Start 09/28/17 at 09:00 Fluconazole (Diflucan) 100 mg DAILY GTB Last administered on 09/29/17 09:43; Admin Dose 100 MG; Start 09/28/17 at 09:00 Folic Acid (Folic Acid) 1 mg DAILY GTB Last administered on 09/29/17 09:42; Admin Dose 1 MG; Start 09/28/17 at 09:00 Acetaminophen/ Hydrocodone Bitart ([place] (5/325)) 1 tab DAILY GTB Last administered on 09/29/17 09:42; Admin Dose 1 TAB; Start 09/28/17 at 09:00 Lactobacillus Acidophilus/ Rhamnosus (Culturelle) 1 cap BID GTB Last administered on 09/29/17 09:42; Admin Dose 1 CAP; Start 09/28/17 at 09:00 Metoprolol Tartrate (Lopressor) 25 mg BID GTB Last administered on 09/28/17 09:24; Admin Dose 25 MG; Start 09/28/17 at 09:00 Multivitamins Therapeutic (Theragran) 1 tab DAILY GTB Last administered on 09:42; Admin Dose 1 TAB; Start 09/28/17 at 09:00 Sertraline HCl (Zoloft) 25 mg QHS GTB Last administered on 09/28/17 21:37; Admin Dose 25 MG; Start 09/28/17 at 21:00 Tramadol HCl (Ultram) 50 mg DAILY PRN GTB FOR WOUND CARE; Start 09/28/17 at 08 :00 Tramadol HCl (Ultram) 50 mg Q8 GTB Last administered on 09/29/17 06:15; Admin Dose 50 MG; Start 09/28/17 at 14:00 Zolpidem Tartrate (Ambien) 5 mg QHS PRN GTB INSOMNIA; Start 09/28/17 at 08:00 Diagnostic Test (Pha) (Accu-Chek) 1 ea 02 XX Last administered on 09/29/17 01 :05; Admin Dose 1 EA; Start 09/29/17 at 02:00 Diagnostic Test (Pha) 1 ea 1 ea 02 XX Last administered on 09/29/17 01:05; Admin Dose 1 EA; Start 09/29/17 at 02:00 Meropenem/Sodium Chloride 50 ml @ 100 mls/hr Q12 IVPB Last administered on 09:40; Admin Dose 100 MLS/HR; Start 09/28/17 at 09:00 Colistimethate Sodium 75 mg/ Sodium Chloride 100 ml @ 200 mls/hr Q24H IVPB Last administered on 09/28/17 15:52; Admin Dose 200 MLS/HR; Start 09/28/17 at 14:45 Daptomycin 280 mg/ Sodium Chloride 100 ml @ 200 mls/hr Q48H IVPB ; Start 09/30 at 17:00 Dextrose/Sodium Chloride (D5-NS) 1,000 ml @ 20 mls/hr Q24H IV Last administered on 09/28/17 21:37; Admin Dose 20 MLS/HR; Start 09/28/17 at 19:00 Insulin Aspart (Novolog Insulin Pen) NOVOLOG *MILD* ALGORITHM Q4 SC ; Start 10/05 at 09:00 DAKOTA SHELLEY Sep 29, 2017 09:55
--- NOTE | 2017-09-29 11:42 | PN ---
Date/Time of Note Date/Time of Note DATE: 09/29/17 TIME: 11:39 Assessment/Plan Lines/Catheters IV Catheter Type (from [facility]): Mid Line [place] in Place (from [facility]): No Assessment/Plan Chief Complaint/Hosp Course 1. Sacral & left trochanter pressure ulcers: -debridement prn -local care -frequent turning and off-loading -low air loss mattress -vitamin c -short term zinc -optimize nutrition 2. Right femoral pseudoaneurysm status post surgical repair; drain with serosanguineous drain -per vascular 3. Ventilator dependent respiratory failure -per pulm -pulm toilet -respiratory treatments 4. End-stage renal disease -HD per renal -avoid/limit nephrotoxic meds -judicious fluids -renally dose meds 5. Anemia: no acute bleed noted -closely monitor surgical site -transfuse as needed 6. Atrial fibrillation -rate control -cards optimization 7. Dysphagia with feeding tube: on tube feeds -cont tf with aspiration precautions 8. Leukocytosis: ? reactive; afebrile -monitor -further workup if persistent 9. Thrombocytosis -supportive 10. Hypoalbuminemia: likely multifactorial -optimize nutrition -medical management of inflammation/infection 11. Electrolyte imbalance -optimize lytes 12. Hypotension: ?sepsis; on pressor -supportive Thank you, Problems: Subjective 24 Hr Interval Summary No f/c. No n/v. No cough. No sz. No rash. Min bleeding per drain. No joint swelling. No bloating. Drain. Wounds. Min pain. Vent. Exam/Review of Systems Vital Signs Vitals Vital Signs Date Time Temp Pulse Resp B/P Pulse Ox O2 Delivery O2 Flow Rate FiO2 09/29/17 10:50 89 18 100 40 09/29/17 10:45 89/52 09/29/17 10:00 Mechanical Ventilator Trach Collar 09/29/17 08:00 98.1 Intake and Output 09/28/17 09/28/17 09/29/17 15:00 23:00 07:00 Intake Total 1151.25 ml 620.0 ml 1065.0 ml Output Total 2500 ml 15 ml Balance -1348.75 ml 605.0 ml 1065.0 ml Exam Free Text/Dictation Constitutional: alert, oriented Psych: nl mood/affect Head: atraumatic, normocephalic Eyes: nl lids, nl sclera ENMT: mucosa pink and moist, nl nasal mucosa & septum Neck: non-tender, other (trach-vent), supple Respiratory: diminished breath sounds, No labored breathing Cardiovascular: irregular rhythm, other (afib) Gastrointestinal: non-tender, other (peg), soft Genitourinary - Male: nl penis, nl scrotum Musculoskeletal: nl extremities to inspection, swelling (right leg 3+; left leg 2+) Extremities: normal pulses (right : 4+dp/popliteal pulse) Neurological: No nl speech, No nl strength (gen weakness) Skin: other (right femoral drain in place draining serosanguineous drainage), No rash or lesions Lymph: No nl lymph nodes Results Result Diagram: 09/29/17 0610 09/29/17 0610 CORA MATAMOROS MD Sep 29, 2017 11:42
[2017-09-29] MEDS: COLISTIMETHATE 75 MG in SOD CHLORIDE 0.9% 100 ML IVPB SCH (15:22)
[2017-09-29] MEDS: COLLAGENASE 30 GM TUBE TOP SCH (17:12)
--- NOTE | 2017-09-29 17:16 | PN ---
DATE: 09/29/2017 INFECTIOUS DISEASE PROGRESS NOTE SUBJECTIVE: Patient remains on Erwin-Synephrine drip, lethargic, in no distress. No fevers. VITAL SIGNS: Temperature 97.9, pulse 80, respirations 20, blood pressure 98/52, saturation 100% on trach collar. WBC 12.4, H and H 9.8 and 31.8, platelets 104, neutrophils 75.3. MICROBIOLOGY: Blood cultures remain negative. INDWELLINGS: Trach, PEG, right subclavian permacath, right upper extremity midline, right thigh EDY. ANTIMICROBIALS: The patient is on: 1. Daptomycin. 2. Colistin. 3. Fluconazole. MICROBIOLOGY: Wound cultures in [facility] grew Acinetobacter baumannii and VRE, as well as Kl ebsiella pneumoniae, ESBL and pseudomonas. Urine culture grew Dulce glabrata. PHYSICAL EXAMINATION: GENERAL: This is a chronically ill-appearing, fragile, debilitated, elderly man who is very weak, l ethargic, in no distress. HEENT: Head atraumatic, normocephalic. Sclerae anicteric. Buccal mucosa dry. NECK: Supple. Tracheostomy present. CHEST: Rise symmetrical. Breath sounds diminished to bases. HEART: S1, S2. ABDOMEN: Distended, bowel tones hypoactive. EXTREMITIES: With bilateral edema. SKIN: With multiple wounds. Patient also has right upper back rash, possibly herpetic. ASSESSMENT: 1. Septic shock. 2. Status post right femoral pseudoaneurysm repair. 3. Multiple chronic wounds with sacral osteomyelitis, status post debridement. 4. G-tube site cellulitis. 5. Nontoxic megacolon. 6. Urinary tract infection. 7. Right upper back rash, possible shingles. 8. Deep venous thrombosis, status post inferior vena cava filter placement. 9. Anemia. 10. Atrial fibrillation. 11. Failure to thrive. 12. End stage renal disease, hemodialysis dependent. PLAN: The patient remains hemodynamically unstable, on appropriate antibiotics. We are going to ac yclovir to the regimen. Follow recommendations of specialists. Dictated By: CLAYTON SHANKAR MANAGER ENTERPRISE for CASSI TOWNSEND MD NI/NTS Conf#: [id number] DID#: [id number] CC: PHILIPPE JUARES DO;*EndCC*
[2017-09-29] MEDS ORDERED: PHENYLephrine 40 MG in DEXTROSE 5% 496 ML IV SCH (18:00)
[2017-09-29] MEDS ORDERED: PHENYLephrine 80 MG in DEXTROSE 5% 492 ML IV SCH (18:00)
[2017-09-29] MEDS: DEXTROSE 5%-0.9% NACL 1,000 ML IV SCH (19:17)
--- NOTE | 2017-09-29 20:16 | PN ---
Date/Time of Note Date/Time of Note DATE: 09/29/17 TIME: 20:15 Assessment/Plan Lines/Catheters IV Catheter Type (from Nrsg): Mid Line [place] in Place (from Nrsg): No Assessment/Plan Chief Complaint/Hosp Course SP Repair Right femoral artery pseudoaneursm will DC EDY tomorrow Problems: Subjective 24 Hr Interval Summary Constitutional: improved Pain Control: mild Exam/Review of Systems Vital Signs Vitals Vital Signs Date Time Temp Pulse Resp B/P Pulse Ox O2 Delivery O2 Flow Rate FiO2 09/29/17 19:45 81 18 100 40 09/29/17 19:15 95/64 09/29/17 19:00 Mechanical Ventilator Trach Collar 09/29/17 16:00 98.8 Intake and Output 09/28/17 09/28/17 09/29/17 15:00 23:00 07:00 Intake Total 1151.25 ml 620.0 ml 1065.0 ml Output Total 2500 ml 15 ml Balance -1348.75 ml 605.0 ml 1065.0 ml Results Result Diagram: 09/29/17 0610 09/29/17 0610 RON CASTRO MD Sep 29, 2017 20:16
[2017-09-29] MEDS: ACYCLOVIR 400 MG TAB PO SCH (20:55)
[2017-09-29] MEDS: SERTRALINE 50 MG TAB GTB SCH (20:55)
[2017-09-30] VITALS (102 sets, daily range): BP systolic 68–120; BP diastolic 36–82; PULSE 65–122; RESP 10–28
[2017-09-30] MEDS: INSULIN ASPART [NOVOLOG] 3 ML PEN SC SCH ×6 (01:00→21:00)
[2017-09-30] MEDS: ACCU-CHEK XX SCH ×2 (02:00)
[2017-09-30] MEDS: traMADol 50 MG TAB GTB SCH ×3 (05:47→21:43)
--- NOTE | 2017-09-30 08:40 | CONS ---
Date/Time of Note Date/Time of Note DATE: 09/30/17 TIME: 08:37 Assessment/Plan Assessment/Plan Additional Assessment/Plan Ventilator setting; AC of 12, tidal volume 450, PEEP of 5, 40% FiO2. Patient is currently on phenylephrine drip at 160 mics per minute. Assessment and recommendations; 1. Patient admitted for repair of right femoral artery pseudoaneurysm. Status post surgical repair. 2. Persistent mild hypotension with interval improvement. Currently on tapering dose of phenylephrine drip. 3. End-stage renal disease, on hemodialysis. 4. Anemia. 5. Severe interstitial lung disease. 6. Chronic respiratory failure, ventilator dependent. Continue current supportive care. Wean off pressor support as tolerated. Consultation Date/Type/Reason Admit Date/Time Sep 27, 2017 at 21:00 Initial Consult Date 09/28/17 Type of Consultation: Pulmonary/critical care Referring Provider: PHILIPPE JUARES DO 24 HR Interval Summary Free Text/Dictation Patient's condition still remains tenuous. Requiring phenylephrine administration for persistent mild hypotension. Patient however remains completely awake and alert. General exam; elderly male, on ventilator via tracheostomy, awake and alert. Currently in no distress. Exam/Review of Systems Vital Signs Vitals Vital Signs Date Time Temp Pulse Resp B/P Pulse Ox O2 Delivery O2 Flow Rate FiO2 09/30/17 08:00 98.5 83 18 101/67 99 Mechanical Ventilator 09/30/17 05:44 40 Intake and Output 09/29/17 09/29/17 09/30/17 15:00 23:00 07:00 Intake Total 1195 ml 1405 ml 1050 ml Output Total 0 ml 15 ml Balance 1195 ml 1390 ml 1050 ml Exam HEENT exam; supple neck, no JVD. No lymphadenopathy. Midline trachea. No thyromegaly. Tracheostomy in place. Patient is edentulous. Chest exam; diminished breath sounds bilaterally. S1-S2 audible, no murmurs. Regular rhythm. Abdomen exam; soft, nontender. No organomegaly. G-tube in place. Bowel sounds audible. 1+ scrotal edema is present. Extremity exam; patient has right lower extremity edema. There is a EDY drain in the right femoral area. Patient does have scattered ecchymosis in all 4 extremities. CREDIT AUTHORIZER exam; patient is awake and follows simple commands. Results Result Diagram: 09/29/17 0610 09/29/17 0610 Results 24 hrs Laboratory Tests Test 09/29/17 09:47 09/29/17 13:41 09/29/17 17:11 09/29/17 20:47 Bedside Glucose 108 142 121 128 Test 09/30/17 05:13 Bedside Glucose 131 Medications Medications Current Medications Hydromorphone HCl (Dilaudid) 0.5 mg Q4H PRN IV PAIN Last administered on 17:00; Admin Dose 0.5 MG; Start 09/27/17 at 23:00 Midodrine (Proamatine) 10 mg TID@ GTB Last administered on 09/29/17 17:12; Admin Dose 10 MG; Start 09/28/17 at 09:00 Ascorbic Acid (Vitamin C) 500 mg DAILY GTB Last administered on 09/29/17 09: 42; Admin Dose 500 MG; Start 09/28/17 at 09:00 Cholecalciferol (Vitamin D) 2,000 unit DAILY GTB Last administered on 09:41; Admin Dose 2,000 UNIT; Start 09/28/17 at 09:00 Digoxin (Digoxin) 0.125 mg DAILY GTB Last administered on 09/29/17 09:42; Admin Dose 0.125 MG; Start 09/28/17 at 09:00 Docusate Sodium (Colace) 100 mg BID PO Last administered on 09/29/17 20:54; Admin Dose 100 MG; Start 09/28/17 at 09:00 Ferrous Sulfate (Feosol Liquid Cup) 300 mg DAILY GTB Last administered on 09/29 09:41; Admin Dose 300 MG; Start 09/28/17 at 09:00 Fluconazole (Diflucan) 100 mg DAILY GTB Last administered on 09/29/17 09:43; Admin Dose 100 MG; Start 09/28/17 at 09:00 Folic Acid (Folic Acid) 1 mg DAILY GTB Last administered on 09/29/17 09:42; Admin Dose 1 MG; Start 09/28/17 at 09:00 Acetaminophen/ Hydrocodone Bitart ([place] (5/325)) 1 tab DAILY GTB Last administered on 09/29/17 09:42; Admin Dose 1 TAB; Start 09/28/17 at 09:00 Lactobacillus Acidophilus/ Rhamnosus (Culturelle) 1 cap BID GTB Last administered on 09/29/17 20:55; Admin Dose 1 CAP; Start 09/28/17 at 09:00 Metoprolol Tartrate (Lopressor) 25 mg BID GTB Last administered on 09/29/17 20:55; Admin Dose 25 MG; Start 09/28/17 at 09:00 Multivitamins Therapeutic (Theragran) 1 tab DAILY GTB Last administered on 09:42; Admin Dose 1 TAB; Start 09/28/17 at 09:00 Sertraline HCl (Zoloft) 25 mg QHS GTB Last administered on 09/29/17 20:55; Admin Dose 25 MG; Start 09/28/17 at 21:00 Tramadol HCl (Ultram) 50 mg DAILY PRN GTB FOR WOUND CARE; Start 09/28/17 at 08 :00 Tramadol HCl (Ultram) 50 mg Q8 GTB Last administered on 09/30/17 05:47; Admin Dose 50 MG; Start 09/28/17 at 14:00 Zolpidem Tartrate (Ambien) 5 mg QHS PRN GTB INSOMNIA; Start 09/28/17 at 08:00 Diagnostic Test (Pha) (Accu-Chek) 1 ea 02 XX Last administered on 09/29/17 01 :05; Admin Dose 1 EA; Start 09/29/17 at 02:00 Diagnostic Test (Pha) 1 ea 1 ea 02 XX Last administered on 09/29/17 01:05; Admin Dose 1 EA; Start 09/29/17 at 02:00 Meropenem/Sodium Chloride 50 ml @ 100 mls/hr Q12 IVPB Last administered on 20:55; Admin Dose 100 MLS/HR; Start 09/28/17 at 09:00 Colistimethate Sodium 75 mg/ Sodium Chloride 100 ml @ 200 mls/hr Q24H IVPB Last administered on 09/29/17 15:22; Admin Dose 200 MLS/HR; Start 09/28/17 at 14:45 Daptomycin 280 mg/ Sodium Chloride 100 ml @ 200 mls/hr Q48H IVPB ; Start 09/30 at 17:00 Dextrose/Sodium Chloride (D5-NS) 1,000 ml @ 20 mls/hr Q24H IV Last administered on 09/29/17 19:17; Admin Dose 20 MLS/HR; Start 09/28/17 at 19:00 Insulin Aspart (Novolog Insulin Pen) NOVOLOG *MILD* ALGORITHM Q4 SC Last administered on 09/29/17 13:46; Admin Dose 1 UNIT; Start 09/29/17 at 09:00 Collagenase (Santyl) 1 applic DAILY TOP Last administered on 09/29/17 17:12; Admin Dose 1 APPLIC; Start 09/29/17 at 12:00 Acyclovir 400 mg 400 mg TID PO Last administered on 09/29/17 20:55; Admin Dose 400 MG; Start 09/29/17 at 21:00 Phenylephrine HCl/ Dextrose (Erwin-Syneph/D5W) 500 ml @ 37.5 mls/hr TITRATE IV Last administered on 09/29/17 17:49; Admin Dose 75 MLS/HR; Start 09/29/17 at 18:00 DAKOTA SHELLEY Sep 30, 2017 08:40
[2017-09-30] MEDS: METOPROLOL 25 MG TAB GTB SCH (09:00)
[2017-09-30] MEDS: ASCORBIC ACID 500 MG TAB GTB SCH (09:24)
[2017-09-30] MEDS: LACTOBACILLUS RHAMNOSUS CAP GTB SCH ×2 (09:24→21:09)
[2017-09-30] MEDS: FERROUS SULFATE 60 MG/ML 5ML CUP GTB SCH (09:24)
[2017-09-30] MEDS: DIGOXIN 0.125 MG TAB GTB SCH (09:24)
[2017-09-30] MEDS: ACYCLOVIR 400 MG TAB PO SCH ×3 (09:24→21:09)
--- NOTE | 2017-09-30 09:24 | CONS ---
Date/Time of Note Date/Time of Note DATE: 09/30/17 TIME: 09:23 Consult Date/Type/Reason Admit Date/Time Sep 27, 2017 at 21:00 Initial Consult Date 09/28/17 Type of Consultation: neph Ordering Provider: PHILIPPE JUARES DO Subjective This is an 87-year-old male with a past medical history of ventilatory dependent respiratory failure, history of end-stage renal disease, history of hypertension, BPH, CHF, coronary artery disease, AFib, who presents to [facility] from [facility] after undergoing pseudoaneurysm repair. The patient was initially at [place] to [facility] where he was initiated dialysis. He was then transferred to [facility] for continued care. 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 The patient was evaluated by vascular surgeon, Dr. Chu, and yesterday underwent for a surgical repair pseudoaneurysm without any intraoperative complications. Postoperatively, patient was in the intensive care unit, was noted to be hypotensive and started on pressor support. There have been no reports of any active hemoptysis, hematemesis, hematochezia. still requiring neosynephrine for bp. denies F/C/N/V/D/C. PAST MEDICAL HISTORY: As stated above, history of ventilator dependent respiratory failure, history of end-stage renal disease, history of CHF, history of arrhythmia, history of encephalopathy has a history of anxiety disorder, history of benign prostatic hypertrophy. MEDICATIONS: The patient's medications have been reviewed PHYSICAL EXAMINATION: HEENT: Head is normocephalic. Pupils are reactive to light. NECK: Supple, neck shows a trach. HEART: Irregularly irregular. LUNGS: Show diminished breath sounds at base. ABDOMEN: Soft, nontender to palpation without rebound or guarding. Positive PEG. EXTREMITIES: Negative for clubbing, cyanosis. Positive edema on the right groin. Please note that there is a EDY drain in dressings clean, dry, intact. DERMATOLOGIC: No rashes. MUSCULOSKELETAL: Positive decubitus wound. NEUROLOGIC: Limited exam due to lack of patient cooperation. Objective Vital Signs Date Time Temp Pulse Resp B/P Pulse Ox O2 Delivery O2 Flow Rate FiO2 09/30/17 08:00 98.5 83 18 101/67 99 Mechanical Ventilator 09/30/17 05:44 40 Intake and Output 09/29/17 09/29/17 09/30/17 14:59 22:59 06:59 Intake Total 1180 ml 1390 ml 1190 ml Output Total 0 ml 15 ml Balance 1180 ml 1375 ml 1190 ml Results/Medications Result Diagram: 09/29/17 0610 09/29/17 0610 Results 24 hrs Laboratory Tests Test 09/29/17 09:47 09/29/17 13:41 09/29/17 17:11 09/29/17 20:47 Bedside Glucose 108 142 121 128 Test 09/30/17 05:13 Bedside Glucose 131 Medications Current Medications Hydromorphone HCl (Dilaudid) 0.5 mg Q4H PRN IV PAIN Last administered on 17:00; Admin Dose 0.5 MG; Start 09/27/17 at 23:00 Midodrine (Proamatine) 10 mg TID@ GTB Last administered on 09/29/17 17:12; Admin Dose 10 MG; Start 09/28/17 at 09:00 Ascorbic Acid (Vitamin C) 500 mg DAILY GTB Last administered on 09/29/17 09: 42; Admin Dose 500 MG; Start 09/28/17 at 09:00 Cholecalciferol (Vitamin D) 2,000 unit DAILY GTB Last administered on 09:41; Admin Dose 2,000 UNIT; Start 09/28/17 at 09:00 Digoxin (Digoxin) 0.125 mg DAILY GTB Last administered on 09/29/17 09:42; Admin Dose 0.125 MG; Start 09/28/17 at 09:00 Docusate Sodium (Colace) 100 mg BID PO Last administered on 09/29/17 20:54; Admin Dose 100 MG; Start 09/28/17 at 09:00 Ferrous Sulfate (Feosol Liquid Cup) 300 mg DAILY GTB Last administered on 09/29 09:41; Admin Dose 300 MG; Start 09/28/17 at 09:00 Fluconazole (Diflucan) 100 mg DAILY GTB Last administered on 09/29/17 09:43; Admin Dose 100 MG; Start 09/28/17 at 09:00 Folic Acid (Folic Acid) 1 mg DAILY GTB Last administered on 09/29/17 09:42; Admin Dose 1 MG; Start 09/28/17 at 09:00 Acetaminophen/ Hydrocodone Bitart ([place] (5/325)) 1 tab DAILY GTB Last administered on 09/29/17 09:42; Admin Dose 1 TAB; Start 09/28/17 at 09:00 Lactobacillus Acidophilus/ Rhamnosus (Culturelle) 1 cap BID GTB Last administered on 09/29/17 20:55; Admin Dose 1 CAP; Start 09/28/17 at 09:00 Metoprolol Tartrate (Lopressor) 25 mg BID GTB Last administered on 09/29/17 20:55; Admin Dose 25 MG; Start 09/28/17 at 09:00 Multivitamins Therapeutic (Theragran) 1 tab DAILY GTB Last administered on 09:42; Admin Dose 1 TAB; Start 09/28/17 at 09:00 Sertraline HCl (Zoloft) 25 mg QHS GTB Last administered on 09/29/17 20:55; Admin Dose 25 MG; Start 09/28/17 at 21:00 Tramadol HCl (Ultram) 50 mg DAILY PRN GTB FOR WOUND CARE; Start 09/28/17 at 08 :00 Tramadol HCl (Ultram) 50 mg Q8 GTB Last administered on 09/30/17 05:47; Admin Dose 50 MG; Start 09/28/17 at 14:00 Zolpidem Tartrate (Ambien) 5 mg QHS PRN GTB INSOMNIA; Start 09/28/17 at 08:00 Diagnostic Test (Pha) (Accu-Chek) 1 ea 02 XX Last administered on 09/29/17 01 :05; Admin Dose 1 EA; Start 09/29/17 at 02:00 Diagnostic Test (Pha) 1 ea 1 ea 02 XX Last administered on 09/29/17 01:05; Admin Dose 1 EA; Start 09/29/17 at 02:00 Meropenem/Sodium Chloride 50 ml @ 100 mls/hr Q12 IVPB Last administered on 20:55; Admin Dose 100 MLS/HR; Start 09/28/17 at 09:00 Colistimethate Sodium 75 mg/ Sodium Chloride 100 ml @ 200 mls/hr Q24H IVPB Last administered on 09/29/17 15:22; Admin Dose 200 MLS/HR; Start 09/28/17 at 14:45 Daptomycin 280 mg/ Sodium Chloride 100 ml @ 200 mls/hr Q48H IVPB ; Start 09/30 at 17:00 Dextrose/Sodium Chloride (D5-NS) 1,000 ml @ 20 mls/hr Q24H IV Last administered on 09/29/17 19:17; Admin Dose 20 MLS/HR; Start 09/28/17 at 19:00 Insulin Aspart (Novolog Insulin Pen) NOVOLOG *MILD* ALGORITHM Q4 SC Last administered on 09/29/17 13:46; Admin Dose 1 UNIT; Start 09/29/17 at 09:00 Collagenase (Santyl) 1 applic DAILY TOP Last administered on 09/29/17 17:12; Admin Dose 1 APPLIC; Start 09/29/17 at 12:00 Acyclovir 400 mg 400 mg TID PO Last administered on 09/29/17 20:55; Admin Dose 400 MG; Start 09/29/17 at 21:00 Phenylephrine HCl/ Dextrose (Erwin-Syneph/D5W) 500 ml @ 37.5 mls/hr TITRATE IV Last administered on 09/29/17 17:49; Admin Dose 75 MLS/HR; Start 09/29/17 at 18:00 Assessment/Plan Chief Complaint/Hosp Course 1. Right femoral pseudoaneurysm status post surgical repair. Plan is to follow up with vascular surgeon, Dr. Chu for recommendations. Continue wound care. 2. Shock, etiology is possibly multifactorial, questionable possible sepsis, possible hemodynamics. Plan at this point is to check blood cultures, check urine culture. We will check a chest x-ray. We will check a procalcitonin level, lactic acid level. Will start the patient on empiric antibiotics. We will place an ID consult for evaluation. 3. Ventilator dependent respiratory failure. Vent settings, ABG is reviewed. Continue to monitor. Follow up with pulmonary. 4. End-stage renal disease. Patient's access is PermCath, will anticipate hemodialysis. Will dialyze for 3 hours on 3 K bath, calcium 2.5. 5. Anemia. Monitor hemoglobin and hematocrit levels. Will give Epogen. 6. Mineral bone disorder. Monitor calcium and phosphorus levels. 7. Atrial fibrillation, currently rate controlled. Continue medical management and follow up cardiology. 8. Acute on chronic encephalopathy. Etiology is toxic metabolic. Continue to monitor. 9. Decubitus wound. We will place a wound care consult for evaluation. 10. Dysphagia, status post PEG. Resume tube feeding. 11. Gastrointestinal and deep venous thrombosis prophylaxis. Continue proton pump inhibitor and sequential leg squeezers. Problems: KELSEY HUBER MD Sep 30, 2017 09:24
[2017-09-30] MEDS: CHOLECALCIFEROL 2,000 UNIT CAP GTB SCH (09:25)
[2017-09-30] MEDS: MEROPENEM 500MG/50 ML (PMX) 50 ML IVPB SCH ×2 (09:26→21:10)
[2017-09-30] MEDS: COLLAGENASE 30 GM TUBE TOP SCH (09:28)
[2017-09-30] MEDS: HYDROCODONE/APAP (5/325) TAB GTB SCH (09:34)
[2017-09-30] MEDS: FLUCONAZOLE 100 MG TAB GTB SCH (09:34)
[2017-09-30] MEDS: FOLIC ACID 1 MG TAB GTB SCH (09:35)
[2017-09-30] MEDS: MIDODRINE 5 MG TAB GTB SCH ×3 (09:54→18:13)
[2017-09-30] MEDS: PHENYLephrine 40 MG in DEXTROSE 5% 496 ML IV SCH ×2 (10:04→15:01)
--- NOTE | 2017-09-30 11:12 | CONS ---
Date/Time of Note Date/Time of Note DATE: 09/30/17 TIME: 11:09 Assessment/Plan Assessment/Plan Additional Assessment/Plan Shock, likely secondary to sepsis Preserved ejection fraction Atrial fibrillation Vent dependent respiratory failure Acute blood loss anemia End-stage renal disease on hemodialysis -Patient has been maintained on Erwin-Synephrine, titrate to maintain SBP greater than 90 and her map above 60. Fluid management via hemodialysis as per our nephrology colleagues. Given patient on IV pressor, with DC Lopressor, antibiotics as per infectious disease. Dr Rome to resume care 10/01/2017 Consultation Date/Type/Reason Admit Date/Time Sep 27, 2017 at 21:00 Initial Consult Date 09/28/17 Type of Consultation: cv Referring Provider: PHILIPPE JUARES DO 24 HR Interval Summary Free Text/Dictation Patient seen and examined. Discussion with nursing staff, IV pressor requirements decreased slightly. Heart rate trend overall remains stable, otherwise no new cardiac issues Exam/Review of Systems Vital Signs Vitals Vital Signs Date Time Temp Pulse Resp B/P Pulse Ox O2 Delivery O2 Flow Rate FiO2 09/30/17 11:00 79 17 86/52 100 09/30/17 10:00 Mechanical Ventilator 09/30/17 08:00 98.5 09/30/17 05:44 40 Intake and Output 09/29/17 09/29/17 09/30/17 14:59 22:59 06:59 Intake Total 1180 ml 1390 ml 1190 ml Output Total 0 ml 15 ml Balance 1180 ml 1375 ml 1190 ml Exam No apparent distress, opens his eyes to his name Head: normocephalic Neck: other (Tracheostomy) Respiratory: other (Coarse breath sounds bilaterally, no wheezing) Cardiovascular: irregular rhythm, other (S1-S2 heard) Gastrointestinal: bowel sounds, non-tender, soft Extremities: edema Results Result Diagram: 09/29/17 0610 09/29/17 0610 Results 24 hrs Laboratory Tests Test 09/29/17 13:41 09/29/17 17:11 09/29/17 20:47 09/30/17 05:13 Bedside Glucose 142 121 128 131 Test 09/30/17 09:37 Bedside Glucose 122 Medications Medications Current Medications Hydromorphone HCl (Dilaudid) 0.5 mg Q4H PRN IV PAIN Last administered on t 17:00; Admin Dose 0.5 MG; Start 09/27/17 at 23:00 Midodrine (Proamatine) 10 mg TID@ GTB Last administered on 09/30/17 09:54; Admin Dose 10 MG; Start 09/28/17 at 09:00 Ascorbic Acid (Vitamin C) 500 mg DAILY GTB Last administered on 09/30/17 09: 24; Admin Dose 500 MG; Start 09/28/17 at 09:00 Cholecalciferol (Vitamin D) 2,000 unit DAILY GTB Last administered on 09:25; Admin Dose 2,000 UNIT; Start 09/28/17 at 09:00 Digoxin (Digoxin) 0.125 mg DAILY GTB Last administered on 09/30/17 09:24; Admin Dose 0.125 MG; Start 09/28/17 at 09:00 Ferrous Sulfate (Feosol Liquid Cup) 300 mg DAILY GTB Last administered on 09/30 09:24; Admin Dose 300 MG; Start 09/28/17 at 09:00 Fluconazole (Diflucan) 100 mg DAILY GTB Last administered on 09/30/17 09:34; Admin Dose 100 MG; Start 09/28/17 at 09:00 Folic Acid (Folic Acid) 1 mg DAILY GTB Last administered on 09/30/17 09:35; Admin Dose 1 MG; Start 09/28/17 at 09:00 Acetaminophen/ Hydrocodone Bitart ([place] (5/325)) 1 tab DAILY GTB Last administered on 09/30/17 09:34; Admin Dose 1 TAB; Start 09/28/17 at 09:00 Lactobacillus Acidophilus/ Rhamnosus (Culturelle) 1 cap BID GTB Last administered on 09/30/17 09:24; Admin Dose 1 CAP; Start 09/28/17 at 09:00 Metoprolol Tartrate (Lopressor) 25 mg BID GTB Last administered on 09/29/17 20:55; Admin Dose 25 MG; Start 09/28/17 at 09:00 Sertraline HCl (Zoloft) 25 mg QHS GTB Last administered on 09/29/17 20:55; Admin Dose 25 MG; Start 09/28/17 at 21:00 Tramadol HCl (Ultram) 50 mg DAILY PRN GTB FOR WOUND CARE; Start 09/28/17 at 08 :00 Tramadol HCl (Ultram) 50 mg Q8 GTB Last administered on 09/30/17 05:47; Admin Dose 50 MG; Start 09/28/17 at 14:00 Zolpidem Tartrate (Ambien) 5 mg QHS PRN GTB INSOMNIA; Start 09/28/17 at 08:00 Diagnostic Test (Pha) (Accu-Chek) 1 ea 02 XX Last administered on 09/29/17 01 :05; Admin Dose 1 EA; Start 09/29/17 at 02:00 Diagnostic Test (Pha) 1 ea 1 ea 02 XX Last administered on 09/29/17 01:05; Admin Dose 1 EA; Start 09/29/17 at 02:00 Meropenem/Sodium Chloride 50 ml @ 100 mls/hr Q12 IVPB Last administered on 09:26; Admin Dose 100 MLS/HR; Start 09/28/17 at 09:00 Colistimethate Sodium 75 mg/ Sodium Chloride 100 ml @ 200 mls/hr Q24H IVPB Last administered on 09/29/17 15:22; Admin Dose 200 MLS/HR; Start 09/28/17 at 14:45 Daptomycin 280 mg/ Sodium Chloride 100 ml @ 200 mls/hr Q48H IVPB ; Start 09/30 at 17:00 Dextrose/Sodium Chloride (D5-NS) 1,000 ml @ 20 mls/hr Q24H IV Last administered on 09/29/17 19:17; Admin Dose 20 MLS/HR; Start 09/28/17 at 19:00 Insulin Aspart (Novolog Insulin Pen) NOVOLOG *MILD* ALGORITHM Q4 SC Last administered on 09/29/17 13:46; Admin Dose 1 UNIT; Start 09/29/17 at 09:00 Collagenase (Santyl) 1 applic DAILY TOP Last administered on 09/30/17 09:28; Admin Dose 1 APPLIC; Start 09/29/17 at 12:00 Acyclovir 400 mg 400 mg TID PO Last administered on 09/30/17 09:24; Admin Dose 400 MG; Start 09/29/17 at 21:00 Phenylephrine HCl/ Dextrose (Erwin-Syneph/D5W) 500 ml @ 37.5 mls/hr TITRATE IV Last administered on 09/30/17t 10:04; Admin Dose 112.5 MLS/HR; Start 09/29/17 at 18:00 Docusate Sodium (Colace Liquid Cup) 100 mg BID GTB ; Start 09/30/17 at 21:00 Multivitamins/ Minerals (Theragran-M) 1 tab DAILY GTB ; Start 09/30/17 at 10:00 Ted Guidry DO Sep 30, 2017 11:12
[2017-09-30] MEDS: MULTIVITAMINS/MINERALS TAB GTB SCH (13:18)
[2017-09-30] MEDS: LANSOPRAZOLE 30 MG CAP GTB SCH (13:19)
--- NOTE | 2017-09-30 15:08 | PN ---
Date/Time of Note Date/Time of Note DATE: 09/30/17 TIME: 15:01 Assessment/Plan Lines/Catheters IV Catheter Type (from [facility]): permacath [place] in Place (from [facility]): No (HD pt) Assessment/Plan Chief Complaint/Hosp Course 1. Sacral wound: -debridement prn -local care -frequent turning and off-loading -low air loss mattress -vitamin c -short term zinc -optimize nutrition 2. Right femoral pseudoaneurysm status post surgical repair; drain with serosanguineous drain -per vascular -elevate leg on pillow as able to reduce edema 3. Ventilator dependent respiratory failure -per pulm -pulm toilet -respiratory treatments 4. End-stage renal disease -HD per renal -avoid/limit nephrotoxic meds -judicious fluids -renally dose meds 5. Anemia: no acute bleed noted -closely monitor surgical site -transfuse as needed 6. Atrial fibrillation -rate control -cards optimization 7. Dysphagia with feeding tube: on tube feeds -cont tf with aspiration precautions 8. Leukocytosis: ? reactive; afebrile -monitor -further workup if persistent 9. Thrombocytosis -supportive 10. Hypoalbuminemia: likely multifactorial -optimize nutrition -medical management of inflammation/infection 11. Electrolyte imbalance -optimize lytes and monitor 12. Hypotension: ?sepsis; on pressor -supportive Thank you. Patient seen and examined in collaboration with Dr. Ho Lua. Problems: Subjective 24 Hr Interval Summary Awake. Responsive. Continues on pressor and ICU care. Min drainage from heaven. No fevers, congested cough, cp, palpitations. Comfortable on vent. Min drainage from wounds. Exam/Review of Systems Vital Signs Vitals Vital Signs Date Time Temp Pulse Resp B/P Pulse Ox O2 Delivery O2 Flow Rate FiO2 09/30/17 11:00 79 17 86/52 100 09/30/17 10:00 Mechanical Ventilator 09/30/17 08:00 98.5 09/30/17 08:00 40 Intake and Output 09/29/17 09/29/17 09/30/17 14:59 22:59 06:59 Intake Total 1180 ml 1390 ml 1190 ml Output Total 0 ml 15 ml Balance 1180 ml 1375 ml 1190 ml Exam Free Text/Dictation Constitutional: alert, oriented Psych: nl mood/affect Head: atraumatic, normocephalic Eyes: nl lids, nl sclera ENMT: mucosa pink and moist, nl nasal mucosa & septum Neck: non-tender, other (trach-vent), supple Respiratory: diminished breath sounds, No labored breathing Cardiovascular: irregular rhythm, other (afib) Gastrointestinal: non-tender, other (peg), soft Genitourinary - Male: nl penis, nl scrotum Musculoskeletal: nl extremities to inspection, swelling (right leg 3+; left leg 2+) Extremities: normal pulses (right : 4+dp/popliteal pulse) Neurological: No nl speech, No nl strength (gen weakness) Skin: other (right femoral drain in place draining serosanguineous drainage), No rash or lesions Lymph: No nl lymph nodes Results Result Diagram: 09/29/17 0610 09/29/17 0610 MART AMEZQUITA NP Sep 30, 2017 15:08
[2017-09-30] MEDS: COLISTIMETHATE 75 MG in SOD CHLORIDE 0.9% 100 ML IVPB SCH (15:36)
--- NOTE | 2017-09-30 16:34 | CONS ---
Date/Time of Note Date/Time of Note DATE: 09/30/17 TIME: 16:32 Consult Date/Type/Reason Admit Date/Time Sep 27, 2017 at 21:00 Initial Consult Date 09/28/17 Type of Consultation: ID Ordering Provider: PHILIPPE JUARES DO Objective Vital Signs Date Time Temp Pulse Resp B/P Pulse Ox O2 Delivery O2 Flow Rate FiO2 09/30/17 16:00 85 09/30/17 15:00 19 79/47 99 Mechanical Ventilator 09/30/17 12:00 98.0 09/30/17 08:00 40 Intake and Output 09/29/17 09/29/17 09/30/17 15:00 23:00 07:00 Intake Total 1195 ml 1405 ml 1190 ml Output Total 0 ml 15 ml Balance 1195 ml 1390 ml 1190 ml Results/Medications Result Diagram: 09/29/17 0610 09/29/17 0610 Results 24 hrs Laboratory Tests Test 09/29/17 17:11 09/29/17 20:47 09/30/17 05:13 09/30/17 09:37 Bedside Glucose 121 128 131 122 Test 09/30/17 13:16 Bedside Glucose 129 Medications Current Medications Hydromorphone HCl (Dilaudid) 0.5 mg Q4H PRN IV PAIN Last administered on 17:00; Admin Dose 0.5 MG; Start 09/27/17 at 23:00 Midodrine (Proamatine) 10 mg TID@,,17 GTB Last administered on 09/30/17 13:19; Admin Dose 10 MG; Start 09/28/17 at 09:00 Ascorbic Acid (Vitamin C) 500 mg DAILY GTB Last administered on 09/30/17 09: 24; Admin Dose 500 MG; Start 09/28/17 at 09:00 Cholecalciferol (Vitamin D) 2,000 unit DAILY GTB Last administered on 09:25; Admin Dose 2,000 UNIT; Start 09/28/17 at 09:00 Digoxin (Digoxin) 0.125 mg DAILY GTB Last administered on 09/30/17 09:24; Admin Dose 0.125 MG; Start 09/28/17 at 09:00 Ferrous Sulfate (Feosol Liquid Cup) 300 mg DAILY GTB Last administered on 09/30 09:24; Admin Dose 300 MG; Start 09/28/17 at 09:00 Fluconazole (Diflucan) 100 mg DAILY GTB Last administered on 09/30/17 09:34; Admin Dose 100 MG; Start 09/28/17 at 09:00 Folic Acid (Folic Acid) 1 mg DAILY GTB Last administered on 09/30/17 09:35; Admin Dose 1 MG; Start 09/28/17 at 09:00 Acetaminophen/ Hydrocodone Bitart ([place] (5/325)) 1 tab DAILY GTB Last administered on 09/30/17 09:34; Admin Dose 1 TAB; Start 09/28/17 at 09:00 Lactobacillus Acidophilus/ Rhamnosus (Culturelle) 1 cap BID GTB Last administered on 09/30/17 09:24; Admin Dose 1 CAP; Start 09/28/17 at 09:00 Sertraline HCl (Zoloft) 25 mg QHS GTB Last administered on 09/29/17 20:55; Admin Dose 25 MG; Start 09/28/17 at 21:00 Tramadol HCl (Ultram) 50 mg DAILY PRN GTB FOR WOUND CARE; Start 09/28/17 at 08 :00 Tramadol HCl (Ultram) 50 mg Q8 GTB Last administered on 09/30/17 13:20; Admin Dose 50 MG; Start 09/28/17 at 14:00 Zolpidem Tartrate (Ambien) 5 mg QHS PRN GTB INSOMNIA; Start 09/28/17 at 08:00 Diagnostic Test (Pha) (Accu-Chek) 1 ea 02 XX Last administered on 09/29/17 01 :05; Admin Dose 1 EA; Start 09/29/17 at 02:00 Diagnostic Test (Pha) 1 ea 1 ea 02 XX Last administered on 09/29/17 01:05; Admin Dose 1 EA; Start 09/29/17 at 02:00 Meropenem/Sodium Chloride 50 ml @ 100 mls/hr Q12 IVPB Last administered on 09:26; Admin Dose 100 MLS/HR; Start 09/28/17 at 09:00 Colistimethate Sodium 75 mg/ Sodium Chloride 100 ml @ 200 mls/hr Q24H IVPB Last administered on 09/30/17 15:36; Admin Dose 200 MLS/HR; Start 09/28/17 at 14:45 Daptomycin 280 mg/ Sodium Chloride 100 ml @ 200 mls/hr Q48H IVPB ; Start 09/30 at 17:00 Dextrose/Sodium Chloride (D5-NS) 1,000 ml @ 20 mls/hr Q24H IV Last administered on 09/29/17 19:17; Admin Dose 20 MLS/HR; Start 09/28/17 at 19:00 Insulin Aspart (Novolog Insulin Pen) NOVOLOG *MILD* ALGORITHM Q4 SC Last administered on 09/29/17 13:46; Admin Dose 1 UNIT; Start 09/29/17 at 09:00 Collagenase (Santyl) 1 applic DAILY TOP Last administered on 09/30/17 09:28; Admin Dose 1 APPLIC; Start 09/29/17 at 12:00 Acyclovir 400 mg 400 mg TID PO Last administered on 09/30/17 13:18; Admin Dose 400 MG; Start 09/29/17 at 21:00 Phenylephrine HCl/ Dextrose (Erwin-Syneph/D5W) 500 ml @ 37.5 mls/hr TITRATE IV Last administered on 09/30/17 15:01; Admin Dose 120 MLS/HR; Start 09/29/17 at 18:00 Docusate Sodium (Colace Liquid Cup) 100 mg BID GTB ; Start 09/30/17 at 21:00 Multivitamins/ Minerals (Theragran-M) 1 tab DAILY GTB Last administered on 13:18; Admin Dose 1 TAB; Start 09/30/17 at 10:00 Lansoprazole 30 mg 30 mg DAILY@06 GTB Last administered on 09/30/17 13:19; Admin Dose 30 MG; Start 09/30/17 at 12:15 Norepinephrine/ Dextrose (Levophed/D5W) 500 ml @ 0.93 mls/hr TITRATE IV Last administered on 09/30/17 16:07; Admin Dose 0.93 MLS/HR; Start 09/30/17 at 15: 30 Assessment/Plan Chief Complaint/Hosp Course SUBJECTIVE: Patient remains on Erwin-Synephrine drip, lethargic, in no distress. No fevers. at bedside MICROBIOLOGY: Blood cultures remain negative. INDWELLINGS: Trach, PEG, right subclavian permacath, right upper extremity midline, right thigh EDY. ANTIMICROBIALS: The patient is on: 1. Daptomycin. 2. Colistin. 3. Fluconazole. 4. Acyclovir MICROBIOLOGY: Wound cultures in [facility] grew Acinetobacter baumannii and VRE, as well as Klebsiella pneumoniae, ESBL and pseudomonas. Urine culture grew Dulce glabrata. PHYSICAL EXAMINATION: GENERAL: This is a chronically ill-appearing, fragile, debilitated, elderly man who is very weak, lethargic, in no distress. HEENT: Head atraumatic, normocephalic. Sclerae anicteric. Buccal mucosa dry. NECK: Supple. Tracheostomy present. CHEST: Rise symmetrical. Breath sounds diminished to bases. HEART: S1, S2. ABDOMEN: Distended, bowel tones hypoactive. EXTREMITIES: With bilateral edema. SKIN: With multiple wounds. Patient also has right upper back rash, possibly herpetic. ASSESSMENT: 1. Septic shock. 2. Status post right femoral pseudoaneurysm repair. 3. Multiple chronic wounds with sacral osteomyelitis, status post debridement. 4. G-tube site cellulitis. 5. Nontoxic megacolon. 6. Urinary tract infection. 7. Right upper back rash, possible shingles. 8. Deep venous thrombosis, status post inferior vena cava filter placement. 9. Anemia. 10. Atrial fibrillation. 11. Failure to thrive. 12. End stage renal disease, hemodialysis dependent. PLAN: The patient remains unchanged, hemodynamically unstable, on appropriate antibiotics. Prognosis guarded, follow recommendations of specialists. [facility] staff Problems: CLAYTON SHANKAR NP Sep 30, 2017 16:34
[2017-09-30] MEDS: DAPTOMYCIN 280 MG in SOD CHLORIDE 0.9% 100 ML IVPB SCH (18:13)
--- NOTE | 2017-09-30 18:38 | PN ---
Date/Time of Note Date/Time of Note DATE: 09/30/17 TIME: 18:37 Assessment/Plan Lines/Catheters IV Catheter Type (from Nrsg): permacath Path[place] in Place (from Nrsg): No (HD pt) Assessment/Plan Chief Complaint/Hosp Course SP Repair Right femoral artery pseudoaneursm will DC EDY Problems: Subjective 24 Hr Interval Summary Constitutional: improved Pain Control: mild Exam/Review of Systems Vital Signs Vitals Vital Signs Date Time Temp Pulse Resp B/P Pulse Ox O2 Delivery O2 Flow Rate FiO2 09/30/17 17:30 93 18 100 40 09/30/17 15:00 79/47 Mechanical Ventilator 09/30/17 12:00 98.0 Intake and Output 09/29/17 09/29/17 09/30/17 15:00 23:00 07:00 Intake Total 1195 ml 1405 ml 1190 ml Output Total 0 ml 15 ml Balance 1195 ml 1390 ml 1190 ml Exam Eyes: EOMI, nl conjunctiva, nl lids, nl sclera ENMT: mucosa pink and moist, nl external ears & nose, nl lips & teeth, nl nasal mucosa & septum Neck: non-tender, supple Respiratory: clear to auscultation, normal air movement Cardiovascular: nl pulses, regular rate and rhythm Results Result Diagram: 09/29/1710 09/29/1710 RON CASTRO MD Sep 30, 2017 18:38
[2017-09-30] MEDS: DEXTROSE 5%-0.9% NACL 1,000 ML IV SCH (19:15)
[2017-09-30] MEDS: SERTRALINE 50 MG TAB GTB SCH (21:09)
[2017-09-30] MEDS: DOCUSATE SODIUM 10 MG/ML (10ML CUP) GTB SCH (21:10)
[2017-09-30] MEDS: HYDROGEN PEROXIDE 118 ML TOP SCH (21:15)
[2017-10-01] VITALS (100 sets, daily range): BP systolic 83–110; BP diastolic 36–67; PULSE 90–126; RESP 12–26
[2017-10-01] MEDS: INSULIN ASPART [NOVOLOG] 3 ML PEN SC SCH ×6 (01:00→21:00)
[2017-10-01] MEDS: ACCU-CHEK XX SCH ×2 (02:00)
[2017-10-01 05:55] LABS: ABNORMAL IP MESSAGE 1; BASOPHILS % 0.3 % (0.0-2.0); EOSINOPHILS # 0.6 10^3/ul (0.0-0.5); EOSINOPHILS % 4.6 % (0.0-7.0); HEMATOCRIT 31.3 % (42.0-52.0); HEMOGLOBIN 9.6 g/dl (14.0-18.0); LYMPHOCYTES # 0.9 10^3/ul (0.8-2.9); LYMPHOCYTES % 6.1 % (15.0-51.0); MEAN CORPUSCULAR HEMOGLOBIN 30.3 pg (29.0-33.0); MEAN CORPUSCULAR HGB CONC 30.7 g/dl (32.0-37.0); MEAN CORPUSCULAR VOLUME 98.7 fl (82.0-101.0); MEAN PLATELET VOLUME 12.9 fl (7.4-10.4); MONOCYTES % 7.4 % (0.0-11.0); NEUTROPHIL # 11.2 10^3/ul (1.6-7.5); NEUTROPHILS % 80.8 % (39.0-77.0); PLATELET COUNT 96 10^3/UL (140-415); POSITIVE DIFF @See below; RED BLOOD COUNT 3.17 10^6/ul (4.70-6.10); RED CELL DISTRIBUTION WIDTH 19.2 % (11.5-14.5); WHITE BLOOD COUNT 13.8 10^3/ul (4.8-10.8)
[2017-10-01] MEDS: traMADol 50 MG TAB GTB SCH ×3 (06:00→22:00)
[2017-10-01] MEDS: LANSOPRAZOLE 30 MG CAP GTB SCH (06:04)
[2017-10-01 06:15] LABS: ALBUMIN 2.5 g/dl (3.3-4.9); ALBUMIN/GLOBULIN RATIO 0.51; CALCIUM 8.7 mg/dl (8.4-10.2); CREATININE 2.24 mg/dl (0.61-1.24); MAGNESIUM 2.2 mg/dl (1.7-2.5); POTASSIUM 4.1 mmol/L (3.5-5.1); TOTAL PROTEIN 7.4 g/dl (6.1-8.1)
[2017-10-01] MEDS: DEXTROSE 5%-0.9% NACL 1,000 ML IV SCH (08:01)
--- NOTE | 2017-10-01 08:27 | PN ---
DATE: 10/01/2017 SUBJECTIVE: The patient remains critically ill on pressor support. The patient had hemodialysis ye sterday, tolerated it well. Patient also noted to be more confused after being given narcotics over night. No other events noted. OBJECTIVE: VITAL SIGNS: Blood pressure is 101/67, pulse 15, respiration 115, temperature 98.6. HEENT: Head is normocephalic. NECK: Supple. HEART: Regular rate. LUNGS: Show diminished breath sounds at the base. ABDOMEN: Soft, nontender to palpation without rebound or guarding. EXTREMITIES: Negative for clubbing, cyanosis. Positive edema. DERMATOLOGIC: No rashes. MUSCULOSKELETAL: Positive wound. NEUROLOGIC: No change in exam. MEDICATIONS: Patient medications have been reviewed. LABORATORY DATA: Shows sodium 133, potassium 4.1, BUN 41, creatinine 3.24. White count 13.8, hemog lobin 9.6, hematocrit 31.3, platelet count is 96. The patient's chest x-ray from 09/28/2017 was reviewed. Microbiology reviewed. ASSESSMENT AND PLAN: 1. Septic shock, underlying source unclear, possibly multifactorial, wound, pneumonia. The patient remains on pressor support, on broad spectrum antibiotics. We will continue current treatment plan . Follow up with infectious disease. 2. Ventilatory dependent respiratory failure. Vent settings and ABG is reviewed. Continue to maureen tor. 3. Right femoral pseudoaneurysm status post surgical repair. Continue to monitor. Follow up with Dr. Chu. 4. Acute encephalopathy. Etiology is toxic metabolic. Continue current treatment plan. Consider CT scan of the brain if no significant improvement. 5. End-stage renal disease. Plan for hemodialysis tomorrow. 6. Anemia. Monitor hemoglobin and hematocrit levels. Continue Epogen. 7. Mineral bone disorder. Monitor calcium and phosphorus levels. 8. Hyponatremia. Continue to monitor and limit free water intake. 9. Atrial fibrillation, rate controlled. Continue medical management. 10. Decubitus wound. Continue wound care. Follow up with general surgery. 11. Dysphagia, status post percutaneous endoscopic gastrostomy. Continue tube feeding. 12. Gastrointestinal and deep venous thrombosis prophylaxis. Continue proton pump inhibitor and se quential leg squeezers. Please note I spent over 30 minutes of critical care time with this patient. Dictated By: PHILIPPE WILSON/NORM Conf#: [id number] [facility]#: [id number]
[2017-10-01] MEDS: LACTOBACILLUS RHAMNOSUS CAP GTB SCH ×2 (09:36→21:10)
[2017-10-01] MEDS: MULTIVITAMINS/MINERALS TAB GTB SCH (09:37)
[2017-10-01] MEDS: ASCORBIC ACID 500 MG TAB GTB SCH (09:37)
[2017-10-01] MEDS: FERROUS SULFATE 60 MG/ML 5ML CUP GTB SCH (09:37)
[2017-10-01] MEDS: FOLIC ACID 1 MG TAB GTB SCH (09:37)
[2017-10-01] MEDS: ACYCLOVIR 400 MG TAB PO SCH ×3 (09:37→21:10)
[2017-10-01] MEDS: DOCUSATE SODIUM 10 MG/ML (10ML CUP) GTB SCH ×2 (09:37→21:10)
[2017-10-01] MEDS: FLUCONAZOLE 100 MG TAB GTB SCH (09:37)
[2017-10-01] MEDS: DIGOXIN 0.125 MG TAB GTB SCH (09:37)
[2017-10-01] MEDS: HYDROGEN PEROXIDE 118 ML TOP SCH ×2 (09:37→21:00)
[2017-10-01] MEDS: MEROPENEM 500MG/50 ML (PMX) 50 ML IVPB SCH ×2 (09:38→21:15)
[2017-10-01] MEDS: MIDODRINE 5 MG TAB GTB SCH ×3 (10:12→17:29)
[2017-10-01] MEDS: CHOLECALCIFEROL 2,000 UNIT CAP GTB SCH (10:12)
[2017-10-01] MEDS: COLLAGENASE 30 GM TUBE TOP SCH (10:29)
--- NOTE | 2017-10-01 11:07 | PN ---
Date/Time of Note Date/Time of Note DATE: 10/01/17 TIME: 11:04 Assessment/Plan Lines/Catheters IV Catheter Type (from [facility]): Permacath Pathak in Place (from [facility]): No (HD pt.) Assessment/Plan Chief Complaint/Hosp Course 1. Sacral & left trochanter pressure ulcers: -debridement prn -local care -frequent turning and off-loading -low air loss mattress -vitamin c -short term zinc -optimize nutrition 2. Right femoral pseudoaneurysm status post surgical repair; drain removal per vascular -per vascular -elevate leg on pillow as able to reduce edema 3. Ventilator dependent respiratory failure -per pulm -pulm toilet -respiratory treatments 4. End-stage renal disease -HD per renal -avoid/limit nephrotoxic meds -judicious fluids -renally dose meds 5. Anemia: no acute bleed noted -closely monitor surgical site -transfuse as needed 6. Atrial fibrillation -rate control -cards optimization 7. Dysphagia with feeding tube: on tube feeds -cont tf with aspiration precautions 8. Leukocytosis: ? reactive; afebrile -monitor -further workup if persistent 9. Thrombocytosis -supportive 10. Hypoalbuminemia: likely multifactorial -optimize nutrition -medical management of inflammation/infection 11. Electrolyte imbalance -optimize lytes and monitor 12. Hypotension: ?sepsis; on pressor -supportive Thank you Problems: Subjective 24 Hr Interval Summary Awake. Responsive. Continues on pressor and ICU care. EDY removal by Vascular. No fevers, congested cough, cp, palpitations. Comfortable on vent. Min drainage from wounds. Exam/Review of Systems Vital Signs Vitals Vital Signs Date Time Temp Pulse Resp B/P Pulse Ox O2 Delivery O2 Flow Rate FiO2 10/01/17 09:45 117 15 100 40 10/01/17 08:15 95/40 Mechanical Ventilator 10/01/17 08:00 97.8 Intake and Output 09/30/17 09/30/17 10/01/17 14:59 22:59 06:59 Intake Total 1590.0 ml 1309.2 ml 311.0 ml Output Total 0 ml 2320 ml Balance 1590.0 ml -1010.8 ml 311.0 ml Exam Free Text/Dictation Constitutional: alert, oriented Psych: nl mood/affect Head: atraumatic, normocephalic Eyes: nl lids, nl sclera ENMT: mucosa pink and moist, nl nasal mucosa & septum Neck: non-tender, other (trach-vent), supple Respiratory: diminished breath sounds, No labored breathing Cardiovascular: irregular rhythm, other (afib) Gastrointestinal: non-tender, other (peg), soft Genitourinary - Male: nl penis, nl scrotum Musculoskeletal: nl extremities to inspection, swelling (right leg 3+; left leg 2+) Extremities: cap refill 2 s Neurological: No nl speech, No nl strength (gen weakness) Skin: Femoral incision with dressing, sacral and left troch pressure ulcers Lymph: No nl lymph nodes Results Result Diagram: 10/01/17 0516 10/01/17 0516 CORA MATAMOROS MD Oct 01, 2017 11:07
--- NOTE | 2017-10-01 11:09 | CONS ---
Date/Time of Note Date/Time of Note DATE: 10/01/17 TIME: 11:07 Assessment/Plan Assessment/Plan Additional Assessment/Plan Ventilator setting; AC of 12, tidal volume 450, PEEP of 5, 40% FiO2. Assessment and recommendations; 1. Patient admitted for repair of right femoral artery pseudoaneurysm status post repair. 2. Mild hypotension with interval improvement, patient off pressor support. 3. History of chronic renal failure, on hemodialysis. 4. Chronic respiratory failure. 5. Underlying pulmonary fibrosis. 6. Severe generalized deconditioning. Continue current supportive care. Consider transfer to rehab center. Consultation Date/Type/Reason Admit Date/Time Sep 27, 2017 at 21:00 Initial Consult Date 09/28/17 Type of Consultation: Pulmonary/critical care Referring Provider: PHILIPPE JUARES DO 24 HR Interval Summary Free Text/Dictation Patient's condition remains stable. Remains awake and alert. Patient is now off pressor support. General exam; elderly male, on ventilator via tracheostomy, awake, currently in no distress. Exam/Review of Systems Vital Signs Vitals Vital Signs Date Time Temp Pulse Resp B/P Pulse Ox O2 Delivery O2 Flow Rate FiO2 10/01/17 09:45 117 15 100 40 10/01/17 08:15 95/40 Mechanical Ventilator 10/01/17 08:00 97.8 Intake and Output 09/30/17 09/30/17 10/01/17 15:00 23:00 07:00 Intake Total 1605.0 ml 1205.4 ml 264.8 ml Output Total 0 ml 2320 ml Balance 1605.0 ml -1114.6 ml 264.8 ml Exam HEENT exam; supple neck, no JVD. No lymphadenopathy. Midline trachea. No thyromegaly. Tracheostomy in place. Patient is edentulous. Has bilateral intraocular lens implants. Chest exam; diminished breath sounds bilaterally. S1-S2 audible, no murmurs. Regular rhythm. Abdomen exam; soft, G-tube in place. No organomegaly. Bowel sounds audible. 1 + scrotal edema is present. Extremity exam; there are multiple ecchymosis in right upper extremity. There is a dressing applied over the right groin. [employer] exam; patient is awake and follows simple commands. Results Result Diagram: 10/01/17 0516 10/01/17 0516 Results 24 hrs Laboratory Tests Test 09/30/17 13:16 09/30/17 18:12 09/30/17 21:19 10/01/17 05:16 Bedside Glucose 129 166 148 White Blood Count 13.8 H Red Blood Count 3.17 L Hemoglobin 9.6 L Hematocrit 31.3 L Mean Corpuscular Volume 98.7 Mean Corpuscular Hemoglobin 30.3 Mean Corpuscular Hemoglobin Concent 30.7 L Red Cell Distribution Width 19.2 H Platelet Count 96 L Mean Platelet Volume 12.9 H Neutrophils % 80.8 H Lymphocytes % 6.1 L Monocytes % 7.4 Eosinophils % 4.6 Basophils % 0.3 Nucleated Red Blood Cells % 0.0 Neutrophils # 11.2 H Lymphocytes # 0.9 Monocytes # 1.0 H Eosinophils # 0.6 H Basophils # 0.0 Nucleated Red Blood Cells # 0.0 Sodium Level 133 L Potassium Level 4.1 Chloride Level 100 Carbon Dioxide Level 25 Anion Gap 12 Blood Urea Nitrogen 41 H Creatinine 2.24 H Glucose Level 112 Calcium Level 8.7 Phosphorus Level 4.0 Magnesium Level 2.2 Total Bilirubin 0.0 L Direct Bilirubin 0.00 Indirect Bilirubin 0.0 Aspartate Amino Transf (AST/SGOT) 21 Alanine Aminotransferase (ALT/SGPT) 22 Alkaline Phosphatase 163 H Total Protein 7.4 Albumin 2.5 L Globulin 4.90 H Albumin/Globulin Ratio 0.51 Test 10/01/17 05:41 10/01/17 10:10 Bedside Glucose 124 148 Medications Medications Current Medications Hydromorphone HCl (Dilaudid) 0.5 mg Q4H PRN IV PAIN Last administered on 17:00; Admin Dose 0.5 MG; Start 09/27/17 at 23:00 Midodrine (Proamatine) 10 mg TID@ GTB Last administered on 10/01/17 10:12; Admin Dose 10 MG; Start 09/28/17 at 09:00 Ascorbic Acid (Vitamin C) 500 mg DAILY GTB Last administered on 10/01/17 09: 37; Admin Dose 500 MG; Start 09/28/17 at 09:00 Cholecalciferol (Vitamin D) 2,000 unit DAILY GTB Last administered on 10:12; Admin Dose 2,000 UNIT; Start 09/28/17 at 09:00 Digoxin (Digoxin) 0.125 mg DAILY GTB Last administered on 10/01/17 09:37; Admin Dose 0.125 MG; Start 09/28/17 at 09:00 Ferrous Sulfate (Feosol Liquid Cup) 300 mg DAILY GTB Last administered on 10/01 09:37; Admin Dose 300 MG; Start 09/28/17 at 09:00 Fluconazole (Diflucan) 100 mg DAILY GTB Last administered on 10/01/17 09:37; Admin Dose 100 MG; Start 09/28/17 at 09:00 Folic Acid (Folic Acid) 1 mg DAILY GTB Last administered on 10/01/17 09:37; Admin Dose 1 MG; Start 09/28/17 at 09:00 Acetaminophen/ Hydrocodone Bitart ([place] (5/325)) 1 tab DAILY GTB Last administered on 09/30/17 09:34; Admin Dose 1 TAB; Start 09/28/17 at 09:00; Status Future Hold Lactobacillus Acidophilus/ Rhamnosus (Culturelle) 1 cap BID GTB Last administered on 10/01/17 09:36; Admin Dose 1 CAP; Start 09/28/17 at 09:00 Sertraline HCl (Zoloft) 25 mg QHS GTB Last administered on 09/30/17 21:09; Admin Dose 25 MG; Start 09/28/17 at 21:00 Tramadol HCl (Ultram) 50 mg DAILY PRN GTB FOR WOUND CARE; Start 09/28/17 at 08 :00; Status Future Hold Tramadol HCl (Ultram) 50 mg Q8 GTB Last administered on 09/30/17 21:43; Admin Dose 50 MG; Start 09/28/17 at 14:00 Zolpidem Tartrate (Ambien) 5 mg QHS PRN GTB INSOMNIA; Start 09/28/17 at 08:00 Diagnostic Test (Pha) (Accu-Chek) 1 ea 02 XX Last administered on 09/29/17 01 :05; Admin Dose 1 EA; Start 09/29/17 at 02:00 Diagnostic Test (Pha) 1 ea 1 ea 02 XX Last administered on 09/29/17 01:05; Admin Dose 1 EA; Start 09/29/17 at 02:00 Meropenem/Sodium Chloride 50 ml @ 100 mls/hr Q12 IVPB Last administered on 09:38; Admin Dose 100 MLS/HR; Start 09/28/17 at 09:00 Colistimethate Sodium 75 mg/ Sodium Chloride 100 ml @ 200 mls/hr Q24H IVPB Last administered on 09/30/17 15:36; Admin Dose 200 MLS/HR; Start 09/28/17 at 14:45 Daptomycin 280 mg/ Sodium Chloride 100 ml @ 200 mls/hr Q48H IVPB Last administered on 09/30/17 18:13; Admin Dose 200 MLS/HR; Start 09/30/17 at 17: 00 Dextrose/Sodium Chloride (D5-NS) 1,000 ml @ 20 mls/hr Q24H IV Last administered on 10/01/17 08:01; Admin Dose 20 MLS/HR; Start 09/28/17 at 19:00 Insulin Aspart (Novolog Insulin Pen) NOVOLOG *MILD* ALGORITHM Q4 SC Last administered on 10/01/17 10:40; Admin Dose 1 UNIT; Start 09/29/17 at 09:00 Collagenase (Santyl) 1 applic DAILY TOP Last administered on 10/01/17 10:29; Admin Dose 1 APPLIC; Start 09/29/17 at 12:00 Acyclovir 400 mg 400 mg TID PO Last administered on 10/01/17 09:37; Admin Dose 400 MG; Start 09/29/17 at 21:00 Phenylephrine HCl/ Dextrose (Erwin-Syneph/D5W) 500 ml @ 37.5 mls/hr TITRATE IV Last administered on 09/30/17 15:01; Admin Dose 120 MLS/HR; Start 09/29/17 at 18:00 Docusate Sodium (Colace Liquid Cup) 100 mg BID GTB Last administered on 09:37; Admin Dose 100 MG; Start 09/30/17 at 21:00 Multivitamins/ Minerals (Theragran-M) 1 tab DAILY GTB Last administered on 09:37; Admin Dose 1 TAB; Start 09/30/17 at 10:00 Lansoprazole 30 mg 30 mg DAILY@06 GTB Last administered on 10/01/17 06:04; Admin Dose 30 MG; Start 09/30/17 at 12:15 Norepinephrine/ Dextrose (Levophed/D5W) 500 ml @ 0.93 mls/hr TITRATE IV Last administered on 09/30/17 16:07; Admin Dose 0.93 MLS/HR; Start 09/30/17 at 15: 30 Hydrogen Peroxide (Hydrogen Peroxide) 1 applic BID TOP Last administered on 09:37; Admin Dose 1 APPLIC; Start 09/30/17 at 21:00 Heparin Sodium (Porcine) (Heparin (5000 Units/0.5 ml)) 5,000 unit BID SC ; Start 10/01/17 at 21:00 DAKOTA SHELLEY Oct 01, 2017 11:09
--- NOTE | 2017-10-01 12:07 | CONS ---
Date/Time of Note Date/Time of Note DATE: 10/01/17 TIME: 12:05 Consult Date/Type/Reason Admit Date/Time Sep 27, 2017 at 21:00 Initial Consult Date 09/28/17 Type of Consultation: ID Ordering Provider: PHILIPPE JUARES DO Objective Vital Signs Date Time Temp Pulse Resp B/P Pulse Ox O2 Delivery O2 Flow Rate FiO2 10/01/17 11:52 116 100 40 10/01/17 11:30 16 89/38 Mechanical Ventilator 10/01/17 08:00 97.8 Intake and Output 09/30/17 09/30/17 10/01/17 14:59 22:59 06:59 Intake Total 1590.0 ml 1309.2 ml 311.0 ml Output Total 0 ml 2320 ml Balance 1590.0 ml -1010.8 ml 311.0 ml Results/Medications Result Diagram: 10/01/17 0516 10/01/17 0516 Results 24 hrs Laboratory Tests Test 09/30/17 13:16 09/30/17 18:12 09/30/17 21:19 10/01/17 05:16 Bedside Glucose 129 166 148 White Blood Count 13.8 H Red Blood Count 3.17 L Hemoglobin 9.6 L Hematocrit 31.3 L Mean Corpuscular Volume 98.7 Mean Corpuscular Hemoglobin 30.3 Mean Corpuscular Hemoglobin Concent 30.7 L Red Cell Distribution Width 19.2 H Platelet Count 96 L Mean Platelet Volume 12.9 H Neutrophils % 80.8 H Lymphocytes % 6.1 L Monocytes % 7.4 Eosinophils % 4.6 Basophils % 0.3 Nucleated Red Blood Cells % 0.0 Neutrophils # 11.2 H Lymphocytes # 0.9 Monocytes # 1.0 H Eosinophils # 0.6 H Basophils # 0.0 Nucleated Red Blood Cells # 0.0 Sodium Level 133 L Potassium Level 4.1 Chloride Level 100 Carbon Dioxide Level 25 Anion Gap 12 Blood Urea Nitrogen 41 H Creatinine 2.24 H Glucose Level 112 Calcium Level 8.7 Phosphorus Level 4.0 Magnesium Level 2.2 Total Bilirubin 0.0 L Direct Bilirubin 0.00 Indirect Bilirubin 0.0 Aspartate Amino Transf (AST/SGOT) 21 Alanine Aminotransferase (ALT/SGPT) 22 Alkaline Phosphatase 163 H Total Protein 7.4 Albumin 2.5 L Globulin 4.90 H Albumin/Globulin Ratio 0.51 Test 10/01/17 05:41 10/01/17 10:10 Bedside Glucose 124 148 Medications Current Medications Hydromorphone HCl (Dilaudid) 0.5 mg Q4H PRN IV PAIN Last administered on 17:00; Admin Dose 0.5 MG; Start 09/27/17 at 23:00 Midodrine (Proamatine) 10 mg TID@ GTB Last administered on 10/01/17 10:12; Admin Dose 10 MG; Start 09/28/17 at 09:00 Ascorbic Acid (Vitamin C) 500 mg DAILY GTB Last administered on 10/01/17 09: 37; Admin Dose 500 MG; Start 09/28/17 at 09:00 Cholecalciferol (Vitamin D) 2,000 unit DAILY GTB Last administered on 10:12; Admin Dose 2,000 UNIT; Start 09/28/17 at 09:00 Digoxin (Digoxin) 0.125 mg DAILY GTB Last administered on 10/01/17 09:37; Admin Dose 0.125 MG; Start 09/28/17 at 09:00 Ferrous Sulfate (Feosol Liquid Cup) 300 mg DAILY GTB Last administered on 10/01 09:37; Admin Dose 300 MG; Start 09/28/17 at 09:00 Fluconazole (Diflucan) 100 mg DAILY GTB Last administered on 10/01/17 09:37; Admin Dose 100 MG; Start 09/28/17 at 09:00 Folic Acid (Folic Acid) 1 mg DAILY GTB Last administered on 10/01/17 09:37; Admin Dose 1 MG; Start 09/28/17 at 09:00 Acetaminophen/ Hydrocodone Bitart ([place] (5/325)) 1 tab DAILY GTB Last administered on 09/30/17 09:34; Admin Dose 1 TAB; Start 09/28/17 at 09:00; Status Future Hold Lactobacillus Acidophilus/ Rhamnosus (Culturelle) 1 cap BID GTB Last administered on 10/01/17 09:36; Admin Dose 1 CAP; Start 09/28/17 at 09:00 Sertraline HCl (Zoloft) 25 mg QHS GTB Last administered on 09/30/17 21:09; Admin Dose 25 MG; Start 09/28/17 at 21:00 Tramadol HCl (Ultram) 50 mg DAILY PRN GTB FOR WOUND CARE; Start 09/28/17 at 08 :00; Status Future Hold Tramadol HCl (Ultram) 50 mg Q8 GTB Last administered on 09/30/17 21:43; Admin Dose 50 MG; Start 09/28/17 at 14:00 Zolpidem Tartrate (Ambien) 5 mg QHS PRN GTB INSOMNIA; Start 09/28/17 at 08:00 Diagnostic Test (Pha) (Accu-Chek) 1 ea 02 XX Last administered on 09/29/17 01 :05; Admin Dose 1 EA; Start 09/29/17 at 02:00 Diagnostic Test (Pha) 1 ea 1 ea 02 XX Last administered on 09/29/17 01:05; Admin Dose 1 EA; Start 09/29/17 at 02:00 Meropenem/Sodium Chloride 50 ml @ 100 mls/hr Q12 IVPB Last administered on 09:38; Admin Dose 100 MLS/HR; Start 09/28/17 at 09:00 Colistimethate Sodium 75 mg/ Sodium Chloride 100 ml @ 200 mls/hr Q24H IVPB Last administered on 09/30/17 15:36; Admin Dose 200 MLS/HR; Start 09/28/17 at 14:45 Daptomycin 280 mg/ Sodium Chloride 100 ml @ 200 mls/hr Q48H IVPB Last administered on 09/30/17 18:13; Admin Dose 200 MLS/HR; Start 09/30/17 at 17: 00 Dextrose/Sodium Chloride (D5-NS) 1,000 ml @ 20 mls/hr Q24H IV Last administered on 10/01/17 08:01; Admin Dose 20 MLS/HR; Start 09/28/17 at 19:00 Insulin Aspart (Novolog Insulin Pen) NOVOLOG *MILD* ALGORITHM Q4 SC Last administered on 10/01/17 10:40; Admin Dose 1 UNIT; Start 09/29/17 at 09:00 Collagenase (Santyl) 1 applic DAILY TOP Last administered on 10/01/17 10:29; Admin Dose 1 APPLIC; Start 09/29/17 at 12:00 Acyclovir 400 mg 400 mg TID PO Last administered on 10/01/17 09:37; Admin Dose 400 MG; Start 09/29/17 at 21:00 Phenylephrine HCl/ Dextrose (Erwin-Syneph/D5W) 500 ml @ 37.5 mls/hr TITRATE IV Last administered on 09/30/17 15:01; Admin Dose 120 MLS/HR; Start 09/29/17 at 18:00 Docusate Sodium (Colace Liquid Cup) 100 mg BID GTB Last administered on 09:37; Admin Dose 100 MG; Start 09/30/17 at 21:00 Multivitamins/ Minerals (Theragran-M) 1 tab DAILY GTB Last administered on 09:37; Admin Dose 1 TAB; Start 09/30/17 at 10:00 Lansoprazole 30 mg 30 mg DAILY@06 GTB Last administered on 10/01/17 06:04; Admin Dose 30 MG; Start 09/30/17 at 12:15 Norepinephrine/ Dextrose (Levophed/D5W) 500 ml @ 0.93 mls/hr TITRATE IV Last administered on 09/30/17 16:07; Admin Dose 0.93 MLS/HR; Start 09/30/17 at 15: 30 Hydrogen Peroxide (Hydrogen Peroxide) 1 applic BID TOP Last administered on 09:37; Admin Dose 1 APPLIC; Start 09/30/17 at 21:00 Heparin Sodium (Porcine) (Heparin (5000 Units/0.5 ml)) 5,000 unit BID SC ; Start 10/01/17 at 21:00 Assessment/Plan Chief Complaint/Hosp Course SUBJECTIVE: Lethargic, afebrile, on Levophed gtt at 12 mcg/min drip, in no distress. MICROBIOLOGY: Blood cultures remain negative. INDWELLINGS: Trach, PEG, right subclavian permacath, right upper extremity midline, right thigh EDY. ANTIMICROBIALS: 1. Daptomycin. 2. Colistin. 3. Fluconazole. 4. Acyclovir MICROBIOLOGY: Wound cultures in [facility] grew Acinetobacter baumannii and VRE, as well as Klebsiella pneumoniae, ESBL and pseudomonas. Urine culture grew Dulce glabrata. PHYSICAL EXAMINATION: GENERAL: This is a chronically ill-appearing, fragile, debilitated, elderly man who is very weak, lethargic, in no distress. HEENT: Head atraumatic, normocephalic. Sclerae anicteric. Buccal mucosa dry. NECK: Supple. Tracheostomy present. CHEST: Rise symmetrical. Breath sounds diminished to bases. HEART: S1, S2. ABDOMEN: Distended, bowel tones hypoactive. EXTREMITIES: With bilateral edema. SKIN: With multiple wounds. Patient also has right upper back rash, possibly herpetic. ASSESSMENT: 1. Septic shock. 2. Status post right femoral pseudoaneurysm repair. 3. Multiple chronic wounds with sacral osteomyelitis, status post debridement. 4. G-tube site cellulitis. 5. Nontoxic megacolon. 6. Urinary tract infection. 7. Right upper back rash, possible shingles. 8. Deep venous thrombosis, status post inferior vena cava filter placement. 9. Anemia. 10. Atrial fibrillation. 11. Failure to thrive. 12. End stage renal disease, hemodialysis dependent. PLAN: The patient remains unchanged, hemodynamically unstable, on appropriate antibiotics. Prognosis guarded, follow recommendations of specialists. [facility] staff Problems: CLAYTON SHANKAR NP Oct 01, 2017 12:06
--- NOTE | 2017-10-01 15:02 | PN ---
Date/Time of Note Date/Time of Note DATE: 10/01/17 TIME: 15:01 Assessment/Plan Lines/Catheters IV Catheter Type (from Nrsg): permacath [place] in Place (from Nrsg): No (Hemodialysis patient) Assessment/Plan Chief Complaint/Hosp Course SP Repair Right femoral artery pseudoaneursm EDY DCed may go back to [place] Problems: Subjective 24 Hr Interval Summary Constitutional: improved Pain Control: mild Exam/Review of Systems Vital Signs Vitals Vital Signs Date Time Temp Pulse Resp B/P Pulse Ox O2 Delivery O2 Flow Rate FiO2 10/01/17 14:45 100 17 96/43 98 Mechanical Ventilator 10/01/17 12:00 98.1 10/01/17 11:52 40 Intake and Output 09/30/17 09/30/17 10/01/17 15:00 23:00 07:00 Intake Total 1605.0 ml 1205.4 ml 264.8 ml Output Total 0 ml 2320 ml Balance 1605.0 ml -1114.6 ml 264.8 ml Exam ENMT: mucosa pink and moist, nl external ears & nose, nl lips & teeth, nl nasal mucosa & septum Neck: non-tender, supple Respiratory: clear to auscultation, normal air movement Cardiovascular: nl pulses, regular rate and rhythm Gastrointestinal: nl liver, spleen, non-tender, soft Results Result Diagram: 10/01/17 0516 10/01/17 0516 RON CASTRO MD Oct 01, 2017 15:02
[2017-10-01] MEDS: COLISTIMETHATE 75 MG in SOD CHLORIDE 0.9% 100 ML IVPB SCH (15:26)
--- NOTE | 2017-10-01 17:14 | CONS ---
Date/Time of Note Date/Time of Note DATE: 10/01/17 TIME: 17:11 Consult Date/Type/Reason Admit Date/Time Sep 27, 2017 at 21:00 Initial Consult Date 09/28/17 Type of Consultation: CARD Ordering Provider: PHILIPPE JUARES DO Subjective Cardiology follow up note: S: D/ W and staff and rhythm was reviewed. pt remains in Afib. HR is under good control he is sleepy/ lethargic and novnerbal now still on vent in ICU O: General: Thin. s/p trach on vent. no acute distress HEENT: NC/AT. pupils are equal. round. NECK: s/p trach. . no stridor. CV: irregularly irregular. systolic murmur; no gallop or rubs. PULM: no wheezing . + rhonchi. GI: SOFT, NT, ND, no rebound or guarding vascular: R fem s/p surgery with dressing and drainage . Extremity: + B/L LE edema. no clubbing. neuro: drowsy. sleeping Psych: calm and pleasant rectal: deferred : normal male Derm: With diffuse ecchymosis throughout the body. ECHO: 1. Normal left ventricular systolic function. Normal left ventricular cavity size. Moderate concentric left ventricular hypertrophy. Ejection fraction is visually estimated at 65 %. Abnormal Diastolic Function. 2. Aortic sclerosis without stenosis. Electronically Signed By: Juan M Bender 12-Aug-2017 12:11:31 -0700 Objective Vital Signs Date Time Temp Pulse Resp B/P Pulse Ox O2 Delivery O2 Flow Rate FiO2 10/01/17 16:00 114 10/01/17 15:34 17 97 35 10/01/17 14:45 96/43 Mechanical Ventilator 10/01/17 12:00 98.1 Intake and Output 09/30/17 09/30/17 10/01/17 15:00 23:00 07:00 Intake Total 1605.0 ml 1205.4 ml 264.8 ml Output Total 0 ml 2320 ml Balance 1605.0 ml -1114.6 ml 264.8 ml Results/Medications Result Diagram: 10/01/17 0516 10/01/17 0516 Results 24 hrs Laboratory Tests Test 09/30/17 18:12 09/30/17 21:19 10/01/17 05:16 10/01/17 05:41 Bedside Glucose 166 148 124 White Blood Count 13.8 H Red Blood Count 3.17 L Hemoglobin 9.6 L Hematocrit 31.3 L Mean Corpuscular Volume 98.7 Mean Corpuscular Hemoglobin 30.3 Mean Corpuscular Hemoglobin Concent 30.7 L Red Cell Distribution Width 19.2 H Platelet Count 96 L Mean Platelet Volume 12.9 H Neutrophils % 80.8 H Lymphocytes % 6.1 L Monocytes % 7.4 Eosinophils % 4.6 Basophils % 0.3 Nucleated Red Blood Cells % 0.0 Neutrophils # 11.2 H Lymphocytes # 0.9 Monocytes # 1.0 H Eosinophils # 0.6 H Basophils # 0.0 Nucleated Red Blood Cells # 0.0 Sodium Level 133 L Potassium Level 4.1 Chloride Level 100 Carbon Dioxide Level 25 Anion Gap 12 Blood Urea Nitrogen 41 H Creatinine 2.24 H Glucose Level 112 Calcium Level 8.7 Phosphorus Level 4.0 Magnesium Level 2.2 Total Bilirubin 0.0 L Direct Bilirubin 0.00 Indirect Bilirubin 0.0 Aspartate Amino Transf (AST/SGOT) 21 Alanine Aminotransferase (ALT/SGPT) 22 Alkaline Phosphatase 163 H Total Protein 7.4 Albumin 2.5 L Globulin 4.90 H Albumin/Globulin Ratio 0.51 Test 10/01/17 10:10 10/01/17 13:56 Bedside Glucose 148 135 Medications Current Medications Hydromorphone HCl (Dilaudid) 0.5 mg Q4H PRN IV PAIN Last administered on 17:00; Admin Dose 0.5 MG; Start 09/27/17 at 23:00 Midodrine (Proamatine) 10 mg TID@ GTB Last administered on 10/01/17 14:03; Admin Dose 10 MG; Start 09/28/17 at 09:00 Ascorbic Acid (Vitamin C) 500 mg DAILY GTB Last administered on 10/01/17 09: 37; Admin Dose 500 MG; Start 09/28/17 at 09:00 Cholecalciferol (Vitamin D) 2,000 unit DAILY GTB Last administered on 10:12; Admin Dose 2,000 UNIT; Start 09/28/17 at 09:00 Digoxin (Digoxin) 0.125 mg DAILY GTB Last administered on 10/01/17 09:37; Admin Dose 0.125 MG; Start 09/28/17 at 09:00 Ferrous Sulfate (Feosol Liquid Cup) 300 mg DAILY GTB Last administered on 10/01 09:37; Admin Dose 300 MG; Start 09/28/17 at 09:00 Fluconazole (Diflucan) 100 mg DAILY GTB Last administered on 10/01/17 09:37; Admin Dose 100 MG; Start 09/28/17 at 09:00 Folic Acid (Folic Acid) 1 mg DAILY GTB Last administered on 10/01/17 09:37; Admin Dose 1 MG; Start 09/28/17 at 09:00 Acetaminophen/ Hydrocodone Bitart ([place] (5/325)) 1 tab DAILY GTB Last administered on 09/30/17 09:34; Admin Dose 1 TAB; Start 09/28/17 at 09:00; Status Future Hold Lactobacillus Acidophilus/ Rhamnosus (Culturelle) 1 cap BID GTB Last administered on 10/01/17 09:36; Admin Dose 1 CAP; Start 09/28/17 at 09:00 Sertraline HCl (Zoloft) 25 mg QHS GTB Last administered on 09/30/17 21:09; Admin Dose 25 MG; Start 09/28/17 at 21:00 Tramadol HCl (Ultram) 50 mg DAILY PRN GTB FOR WOUND CARE; Start 09/28/17 at 08 :00; Status Future Hold Tramadol HCl (Ultram) 50 mg Q8 GTB Last administered on 09/30/17 21:43; Admin Dose 50 MG; Start 09/28/17 at 14:00 Zolpidem Tartrate (Ambien) 5 mg QHS PRN GTB INSOMNIA; Start 09/28/17 at 08:00 Diagnostic Test (Pha) (Accu-Chek) 1 ea 02 XX Last administered on 09/29/17 01 :05; Admin Dose 1 EA; Start 09/29/17 at 02:00 Diagnostic Test (Pha) 1 ea 1 ea 02 XX Last administered on 09/29/17 01:05; Admin Dose 1 EA; Start 09/29/17 at 02:00 Meropenem/Sodium Chloride 50 ml @ 100 mls/hr Q12 IVPB Last administered on 09:38; Admin Dose 100 MLS/HR; Start 09/28/17 at 09:00 Colistimethate Sodium 75 mg/ Sodium Chloride 100 ml @ 200 mls/hr Q24H IVPB Last administered on 10/01/17 15:26; Admin Dose 200 MLS/HR; Start 09/28/17 at 14:45 Daptomycin 280 mg/ Sodium Chloride 100 ml @ 200 mls/hr Q48H IVPB Last administered on 09/30/17 18:13; Admin Dose 200 MLS/HR; Start 09/30/17 at 17: 00 Dextrose/Sodium Chloride (D5-NS) 1,000 ml @ 20 mls/hr Q24H IV Last administered on 10/01/17 08:01; Admin Dose 20 MLS/HR; Start 09/28/17 at 19:00 Insulin Aspart (Novolog Insulin Pen) NOVOLOG *MILD* ALGORITHM Q4 SC Last administered on 10/01/17 10:40; Admin Dose 1 UNIT; Start 09/29/17 at 09:00 Collagenase (Santyl) 1 applic DAILY TOP Last administered on 10/01/17 10:29; Admin Dose 1 APPLIC; Start 09/29/17 at 12:00 Acyclovir 400 mg 400 mg TID PO Last administered on 10/01/17 14:03; Admin Dose 400 MG; Start 09/29/17 at 21:00 Phenylephrine HCl/ Dextrose (Erwin-Syneph/D5W) 500 ml @ 37.5 mls/hr TITRATE IV Last administered on 09/30/17 15:01; Admin Dose 120 MLS/HR; Start 09/29/17 at 18:00 Docusate Sodium (Colace Liquid Cup) 100 mg BID GTB Last administered on 09:37; Admin Dose 100 MG; Start 09/30/17 at 21:00 Multivitamins/ Minerals (Theragran-M) 1 tab DAILY GTB Last administered on 09:37; Admin Dose 1 TAB; Start 09/30/17 at 10:00 Lansoprazole 30 mg 30 mg DAILY@06 GTB Last administered on 10/01/17 06:04; Admin Dose 30 MG; Start 09/30/17 at 12:15 Norepinephrine/ Dextrose (Levophed/D5W) 500 ml @ 0.93 mls/hr TITRATE IV Last administered on 09/30/17 16:07; Admin Dose 0.93 MLS/HR; Start 09/30/17 at 15: 30 Hydrogen Peroxide (Hydrogen Peroxide) 1 applic BID TOP Last administered on 09:37; Admin Dose 1 APPLIC; Start 09/30/17 at 21:00 Heparin Sodium (Porcine) (Heparin (5000 Units/0.5 ml)) 5,000 unit BID SC ; Start 10/01/17 at 21:00 Assessment/Plan Chief Complaint/Hosp Course 1. SHOCK: probably septic 2. Afib: persistent/ chronic now. 3. hypoxemic resp failure: s/p trach vent dependent now. 4. hx anemia and GI bleed: off of any anticoagulation 5. 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 s/p multiple infections 8. dysphagia: s/p PEG Recommendations: I will continue with the pressors for now Vent support will be continued. Hemodialysis will be continued. Heart rate clinically remained stable We can give very low-dose of digoxin on an as-needed basis if the heart rate continues to be increasing and becomes too elevated. However the current rate appears to be very well controlled. Transfusion as needed will be given.. Patient currently off of full anticoagulation due to concern about history of severe anemia as well as GI bleed and OB positive stool. Continue with the ICU care. Thank you for his referral. I will continue to follow along with you. DIOR JEFFERSON MD [facility] Problems: DIOR JEFFERSON MD Oct 01, 2017 17:14
[2017-10-01] MEDS: SERTRALINE 50 MG TAB GTB SCH (21:10)
[2017-10-01] MEDS: HEPARIN 5,000 UNIT/0.5 ML VIAL SC SCH (22:41)
[2017-10-02] VITALS (94 sets, daily range): BP systolic 86–115; BP diastolic 36–93; PULSE 78–114; RESP 9–39
[2017-10-02] MEDS: INSULIN ASPART [NOVOLOG] 3 ML PEN SC SCH ×6 (00:39→20:45)
[2017-10-02] MEDS: ACCU-CHEK XX SCH ×2 (02:00)
[2017-10-02] MEDS: traMADol 50 MG TAB GTB SCH ×3 (06:00→23:25)
[2017-10-02 06:08] LABS: ABNORMAL IP MESSAGE 1; BASOPHILS % 0.3 % (0.0-2.0); EOSINOPHILS # 0.6 10^3/ul (0.0-0.5); EOSINOPHILS % 4.7 % (0.0-7.0); HEMATOCRIT 29.8 % (42.0-52.0); HEMOGLOBIN 9.7 g/dl (14.0-18.0); LYMPHOCYTES # 0.8 10^3/ul (0.8-2.9); LYMPHOCYTES % 6.5 % (15.0-51.0); MEAN CORPUSCULAR HEMOGLOBIN 32.3 pg (29.0-33.0); MEAN CORPUSCULAR HGB CONC 32.6 g/dl (32.0-37.0); MEAN CORPUSCULAR VOLUME 99.3 fl (82.0-101.0); MEAN PLATELET VOLUME 13.3 fl (7.4-10.4); MONOCYTE # 0.8 10^3/ul (0.3-0.9); MONOCYTES % 6.3 % (0.0-11.0); NEUTROPHIL # 10.1 10^3/ul (1.6-7.5); NEUTROPHILS % 81.5 % (39.0-77.0); PLATELET COUNT 126 10^3/UL (140-415); POSITIVE DIFF @See below; RED CELL DISTRIBUTION WIDTH 18.9 % (11.5-14.5); WHITE BLOOD COUNT 12.4 10^3/ul (4.8-10.8)
[2017-10-02 06:22] LABS: CREATININE 2.48 mg/dl (0.61-1.24); MAGNESIUM 2.4 mg/dl (1.7-2.5); PHOSPHORUS 4.6 mg/dl (2.5-4.9); POTASSIUM 4.7 mmol/L (3.5-5.1)
[2017-10-02] MEDS: LANSOPRAZOLE 30 MG CAP GTB SCH (06:40)
--- NOTE | 2017-10-02 08:26 | PN ---
DATE: 10/02/2017 SUBJECTIVE: The patient remains critically ill on full pressor support, unable to be weaned off. T he patient also continues to remain lethargic. The patient's opiates were held yesterday, but no si gnificant improvement in mental status. No other events noted. OBJECTIVE: VITAL SIGNS: Blood pressure is 111/46, pulse 93, respirations 13, saturating 99%. HEENT: Head is normocephalic. NECK: Supple. HEART: Tachycardic. LUNGS: Show diminished breath sounds at the base. ABDOMEN: Soft, nontender to palpation without rebound or guarding. EXTREMITIES: Negative for clubbing, cyanosis. Positive edema. DERMATOLOGIC: No rashes. MUSCULOSKELETAL: No joint effusions. NEUROLOGIC: Patient remains obtunded. LABORATORY DATA: Shows a white count 12.4, hemoglobin 9.7, hematocrit 29.8, platelet count is 126. Sodium 132, BUN 51, creatinine 2.48. ASSESSMENT AND PLAN: 1. Septic shock, etiology is multifactorial, possibly decubitus wounds, pneumonia. Continue curren t broad spectrum antibiotics, continue pressor support. 2. Ventilator dependent respiratory failure. Vent settings and arterial blood gases have been revi ewed. Continue to monitor. 3. Right pseudoaneurysm status post surgical repair. Continue to monitor. Follow up with surgery. 4. Acute encephalopathy, Etiology is felt to be toxic metabolic. The patient's mental status has n ot improved, we will get a CT scan of the head. 5. End-stage renal disease. Plan for hemodialysis today. 6. Anemia. Monitor hemoglobin and hematocrit levels. Will give Epogen as needed. 7. Mineral bone disorder. Monitor calcium and phosphorus levels. 8. Hyponatremia. Will limit free water intake. 9. Atrial fibrillation, rate controlled. Continue medical management. 10. Volume overload. Continue ultrafiltration with dialysis. 11. Dysphagia, status post percutaneous endoscopic gastrostomy. Continue tube feeds. 12. Decubitus wound. Continue wound care. 13. Deep venous thrombosis and gastrointestinal prophylaxis, continue proton pump inhibitors and se quential leg squeezers. Please note I spent over 30 minutes of critical care time with this patient. Dictated By: PHILIPPE WILSON/NORM Conf#: [id number] DID#: [id number]
--- NOTE | 2017-10-02 09:50 | CONS ---
Date/Time of Note Date/Time of Note DATE: 10/02/17 TIME: 09:48 Consult Date/Type/Reason Admit Date/Time Sep 27, 2017 at 21:00 Initial Consult Date 09/28/17 Type of Consultation: Pulmonary Ordering Provider: PHILIPPE JUARES DO Subjective Remains unresponsive on mechanical ventilation pending hemodialysis this morning. Continues vasopressor support. Objective Vital Signs Date Time Temp Pulse Resp B/P Pulse Ox O2 Delivery O2 Flow Rate FiO2 10/02/17 09:00 93 16 97/44 99 Mechanical Ventilator 10/02/17 08:00 97.9 10/02/17 05:00 35 Intake and Output 10/01/17 10/01/17 10/02/17 15:00 23:00 07:00 Intake Total 503 ml 681 ml 545 ml Output Total 0 ml 0 ml 0 ml Balance 503 ml 681 ml 545 ml Exam PHYSICAL EXAMINATION GENERAL: Elderly gentleman, on mechanical ventilation via tracheostomy VITAL SIGNS: see below. HEENT: Pupils equal, round, and reactive to light. Tracheostomy site clean and intact. CARDIAC: S1, S2, 2/6 systolic ejection murmur CHEST: Diminished air entry bilaterally. ABDOMEN: Mildly distended. Bowel sounds present no guarding or rebound EXTREMITIES: No cyanosis, clubbing edema +1 NEUROLOGIC: Unable to assess Results/Medications Result Diagram: 10/02/17 0531 10/02/17 0531 Results 24 hrs Laboratory Tests Test 10/01/17 10:10 10/01/17 13:56 10/01/17 17:28 10/01/17 20:56 Bedside Glucose 148 135 120 111 Test 10/02/17 05:31 10/02/17 05:39 White Blood Count 12.4 H Red Blood Count 3.00 L Hemoglobin 9.7 L Hematocrit 29.8 L Mean Corpuscular Volume 99.3 Mean Corpuscular Hemoglobin 32.3 Mean Corpuscular Hemoglobin Concent 32.6 Red Cell Distribution Width 18.9 H Platelet Count 126 #L Mean Platelet Volume 13.3 H Neutrophils % 81.5 H Lymphocytes % 6.5 L Monocytes % 6.3 Eosinophils % 4.7 Basophils % 0.3 Nucleated Red Blood Cells % 0.0 Neutrophils # 10.1 H Lymphocytes # 0.8 Monocytes # 0.8 Eosinophils # 0.6 H Basophils # 0.0 Nucleated Red Blood Cells # 0.0 Sodium Level 132 L Potassium Level 4.7 Chloride Level 98 Carbon Dioxide Level 26 Anion Gap 13 Blood Urea Nitrogen 51 H Creatinine 2.48 H Glucose Level 107 Calcium Level 9.0 Phosphorus Level 4.6 Magnesium Level 2.4 Bedside Glucose 126 Medications Current Medications Hydromorphone HCl (Dilaudid) 0.5 mg Q4H PRN IV PAIN Last administered on 17:00; Admin Dose 0.5 MG; Start 09/27/17 at 23:00 Midodrine (Proamatine) 10 mg TID@ GTB Last administered on 10/01/17 17:29; Admin Dose 10 MG; Start 09/28/17 at 09:00 Ascorbic Acid (Vitamin C) 500 mg DAILY GTB Last administered on 10/01/17 09: 37; Admin Dose 500 MG; Start 09/28/17 at 09:00 Cholecalciferol (Vitamin D) 2,000 unit DAILY GTB Last administered on 10:12; Admin Dose 2,000 UNIT; Start 09/28/17 at 09:00 Digoxin (Digoxin) 0.125 mg DAILY GTB Last administered on 10/01/17 09:37; Admin Dose 0.125 MG; Start 09/28/17 at 09:00 Ferrous Sulfate (Feosol Liquid Cup) 300 mg DAILY GTB Last administered on 10/01 09:37; Admin Dose 300 MG; Start 09/28/17 at 09:00 Fluconazole (Diflucan) 100 mg DAILY GTB Last administered on 10/01/17 09:37; Admin Dose 100 MG; Start 09/28/17 at 09:00 Folic Acid (Folic Acid) 1 mg DAILY GTB Last administered on 10/01/17 09:37; Admin Dose 1 MG; Start 09/28/17 at 09:00 Acetaminophen/ Hydrocodone Bitart ([place] (5/325)) 1 tab DAILY GTB Last administered on 09/30/17 09:34; Admin Dose 1 TAB; Start 09/28/17 at 09:00; Status Future Hold Lactobacillus Acidophilus/ Rhamnosus (Culturelle) 1 cap BID GTB Last administered on 10/01/17 21:10; Admin Dose 1 CAP; Start 09/28/17 at 09:00 Sertraline HCl (Zoloft) 25 mg QHS GTB Last administered on 10/01/17 21:10; Admin Dose 25 MG; Start 09/28/17 at 21:00 Tramadol HCl (Ultram) 50 mg DAILY PRN GTB FOR WOUND CARE; Start 09/28/17 at 08 :00; Status Future Hold Tramadol HCl (Ultram) 50 mg Q8 GTB Last administered on 09/30/17 21:43; Admin Dose 50 MG; Start 09/28/17 at 14:00 Zolpidem Tartrate (Ambien) 5 mg QHS PRN GTB INSOMNIA; Start 09/28/17 at 08:00 Diagnostic Test (Pha) (Accu-Chek) 1 ea 02 XX Last administered on 09/29/17 01 :05; Admin Dose 1 EA; Start 09/29/17 at 02:00 Diagnostic Test (Pha) 1 ea 1 ea 02 XX Last administered on 09/29/17 01:05; Admin Dose 1 EA; Start 09/29/17 at 02:00 Meropenem/Sodium Chloride 50 ml @ 100 mls/hr Q12 IVPB Last administered on 21:15; Admin Dose 100 MLS/HR; Start 09/28/17 at 09:00 Colistimethate Sodium 75 mg/ Sodium Chloride 100 ml @ 200 mls/hr Q24H IVPB Last administered on 10/01/17 15:26; Admin Dose 200 MLS/HR; Start 09/28/17 at 14:45 Daptomycin 280 mg/ Sodium Chloride 100 ml @ 200 mls/hr Q48H IVPB Last administered on 09/30/17 18:13; Admin Dose 200 MLS/HR; Start 09/30/17 at 17: 00 Dextrose/Sodium Chloride (D5-NS) 1,000 ml @ 20 mls/hr Q24H IV Last administered on 10/01/17 08:01; Admin Dose 20 MLS/HR; Start 09/28/17 at 19:00 Insulin Aspart (Novolog Insulin Pen) NOVOLOG *MILD* ALGORITHM Q4 SC Last administered on 10/01/17 10:40; Admin Dose 1 UNIT; Start 09/29/17 at 09:00 Collagenase (Santyl) 1 applic DAILY TOP Last administered on 10/01/17 10:29; Admin Dose 1 APPLIC; Start 09/29/17 at 12:00 Acyclovir 400 mg 400 mg TID PO Last administered on 10/01/17 21:10; Admin Dose 400 MG; Start 09/29/17 at 21:00 Phenylephrine HCl/ Dextrose (Erwin-Syneph/D5W) 500 ml @ 37.5 mls/hr TITRATE IV Last administered on 09/30/17 15:01; Admin Dose 120 MLS/HR; Start 09/29/17 at 18:00 Docusate Sodium (Colace Liquid Cup) 100 mg BID GTB Last administered on 21:10; Admin Dose 100 MG; Start 09/30/17 at 21:00 Multivitamins/ Minerals (Theragran-M) 1 tab DAILY GTB Last administered on 09:37; Admin Dose 1 TAB; Start 09/30/17 at 10:00 Lansoprazole 30 mg 30 mg DAILY@06 GTB Last administered on 10/02/17 06:40; Admin Dose 30 MG; Start 09/30/17 at 12:15 Norepinephrine/ Dextrose (Levophed/D5W) 500 ml @ 0.93 mls/hr TITRATE IV Last administered on 10/01/17 23:10; Admin Dose 0.93 MLS/HR; Start 09/30/17 at 15: 30 Hydrogen Peroxide (Hydrogen Peroxide) 1 applic BID TOP Last administered on 21:00; Admin Dose 1 APPLIC; Start 09/30/17 at 21:00 Heparin Sodium (Porcine) (Heparin (5000 Units/0.5 ml)) 5,000 unit BID SC Last administered on 10/01/17 22:41; Admin Dose 5,000 UNIT; Start 10/01/17 at 21: 00 Assessment/Plan Chief Complaint/Hosp Course Assessment 1. Patient admitted for repair of right femoral artery pseudoaneurysm status post repair. 2. Septic shock on mechanical ventilation 3. Dysphagia with G-tube 4. End-stage renal failure on hemodialysis 5. Idiopathic pulmonary fibrosis. Chronic respiratory failure on mechanical ventilation 6. Encephalopathy possible toxic metabolic Plan 1. Continue mechanical ventilation 2. Continue antibiotics 3. Titrate vasopressors to keep map greater than 65 4. Would consider not removing fluid during hemodialysis as patient remains vasopressor dependent Family discussion regarding goals of care is overall prognosis extremely poor consider palliative care approach. Problems: ANGELINA TRUJILLO MD, [facility] Oct 02, 2017 09:50
[2017-10-02] MEDS: FERROUS SULFATE 60 MG/ML 5ML CUP GTB SCH (10:07)
[2017-10-02] MEDS: MULTIVITAMINS/MINERALS TAB GTB SCH (10:07)
[2017-10-02] MEDS: DOCUSATE SODIUM 10 MG/ML (10ML CUP) GTB SCH ×2 (10:07→20:46)
[2017-10-02] MEDS: FLUCONAZOLE 100 MG TAB GTB SCH (10:07)
[2017-10-02] MEDS: ASCORBIC ACID 500 MG TAB GTB SCH (10:07)
[2017-10-02] MEDS: FOLIC ACID 1 MG TAB GTB SCH (10:07)
[2017-10-02] MEDS: LACTOBACILLUS RHAMNOSUS CAP GTB SCH ×2 (10:07→20:46)
[2017-10-02] MEDS: ACYCLOVIR 400 MG TAB PO SCH ×3 (10:08→20:46)
[2017-10-02] MEDS: CHOLECALCIFEROL 2,000 UNIT CAP GTB SCH (10:08)
[2017-10-02] MEDS: MIDODRINE 5 MG TAB GTB SCH ×3 (10:08→16:59)
[2017-10-02] MEDS: DIGOXIN 0.125 MG TAB GTB SCH (10:09)
[2017-10-02] MEDS: HEPARIN 5,000 UNIT/0.5 ML VIAL SC SCH ×2 (10:22→20:52)
[2017-10-02] MEDS: COLLAGENASE 30 GM TUBE TOP SCH (10:27)
[2017-10-02] MEDS: HYDROGEN PEROXIDE 118 ML TOP SCH ×2 (10:27→20:46)
[2017-10-02] MEDS: MEROPENEM 500MG/50 ML (PMX) 50 ML IVPB SCH ×2 (11:09→20:46)
--- NOTE | 2017-10-02 12:48 | CONS ---
Date/Time of Note Date/Time of Note DATE: 10/02/17 TIME: 12:47 Consult Date/Type/Reason Admit Date/Time Sep 27, 2017 at 21:00 Initial Consult Date 09/28/17 Type of Consultation: ID Ordering Provider: PHILIPPE JUARES DO Objective Vital Signs Date Time Temp Pulse Resp B/P Pulse Ox O2 Delivery O2 Flow Rate FiO2 10/02/17 11:00 108 20 98 35 10/02/17 09:00 97/44 Mechanical Ventilator 10/02/17 08:00 97.9 Intake and Output 10/01/17 10/01/17 10/02/17 15:00 23:00 07:00 Intake Total 503 ml 681 ml 545 ml Output Total 0 ml 0 ml 0 ml Balance 503 ml 681 ml 545 ml Results/Medications Result Diagram: 10/02/17 0531 10/02/17 0531 Results 24 hrs Laboratory Tests Test 10/01/17 13:56 10/01/17 17:28 10/01/17 20:56 10/02/17 05:31 Bedside Glucose 135 120 111 White Blood Count 12.4 H Red Blood Count 3.00 L Hemoglobin 9.7 L Hematocrit 29.8 L Mean Corpuscular Volume 99.3 Mean Corpuscular Hemoglobin 32.3 Mean Corpuscular Hemoglobin Concent 32.6 Red Cell Distribution Width 18.9 H Platelet Count 126 #L Mean Platelet Volume 13.3 H Neutrophils % 81.5 H Lymphocytes % 6.5 L Monocytes % 6.3 Eosinophils % 4.7 Basophils % 0.3 Nucleated Red Blood Cells % 0.0 Neutrophils # 10.1 H Lymphocytes # 0.8 Monocytes # 0.8 Eosinophils # 0.6 H Basophils # 0.0 Nucleated Red Blood Cells # 0.0 Sodium Level 132 L Potassium Level 4.7 Chloride Level 98 Carbon Dioxide Level 26 Anion Gap 13 Blood Urea Nitrogen 51 H Creatinine 2.48 H Glucose Level 107 Calcium Level 9.0 Phosphorus Level 4.6 Magnesium Level 2.4 Test 10/02/17 05:39 10/02/17 10:05 Bedside Glucose 126 142 Medications Current Medications Hydromorphone HCl (Dilaudid) 0.5 mg Q4H PRN IV PAIN Last administered on t 17:00; Admin Dose 0.5 MG; Start 09/27/17 at 23:00 Midodrine (Proamatine) 10 mg TID@, GTB Last administered on 10/02/17 10:08; Admin Dose 10 MG; Start 09/28/17 at 09:00 Ascorbic Acid (Vitamin C) 500 mg DAILY GTB Last administered on 10/02/17 10: 07; Admin Dose 500 MG; Start 09/28/17 at 09:00 Cholecalciferol (Vitamin D) 2,000 unit DAILY GTB Last administered on 10:08; Admin Dose 2,000 UNIT; Start 09/28/17 at 09:00 Digoxin (Digoxin) 0.125 mg DAILY GTB Last administered on 10/02/17 10:09; Admin Dose 0.125 MG; Start 09/28/17 at 09:00 Ferrous Sulfate (Feosol Liquid Cup) 300 mg DAILY GTB Last administered on 10/02 10:07; Admin Dose 300 MG; Start 09/28/17 at 09:00 Fluconazole (Diflucan) 100 mg DAILY GTB Last administered on 10/02/17 10:07; Admin Dose 100 MG; Start 09/28/17 at 09:00 Folic Acid (Folic Acid) 1 mg DAILY GTB Last administered on 10/02/17 10:07; Admin Dose 1 MG; Start 09/28/17 at 09:00 Acetaminophen/ Hydrocodone Bitart ([place] (5/325)) 1 tab DAILY GTB Last administered on 09/30/17 09:34; Admin Dose 1 TAB; Start 09/28/17 at 09:00; Status Future Hold Lactobacillus Acidophilus/ Rhamnosus (Culturelle) 1 cap BID GTB Last administered on 10/02/17 10:07; Admin Dose 1 CAP; Start 09/28/17 at 09:00 Sertraline HCl (Zoloft) 25 mg QHS GTB Last administered on 10/01/17 21:10; Admin Dose 25 MG; Start 09/28/17 at 21:00 Tramadol HCl (Ultram) 50 mg DAILY PRN GTB FOR WOUND CARE; Start 09/28/17 at 08 :00; Status Future Hold Tramadol HCl (Ultram) 50 mg Q8 GTB Last administered on 09/30/17 21:43; Admin Dose 50 MG; Start 09/28/17 at 14:00 Zolpidem Tartrate (Ambien) 5 mg QHS PRN GTB INSOMNIA; Start 09/28/17 at 08:00 Diagnostic Test (Pha) (Accu-Chek) 1 ea 02 XX Last administered on 09/29/17 01 :05; Admin Dose 1 EA; Start 09/29/17 at 02:00 Diagnostic Test (Pha) 1 ea 1 ea 02 XX Last administered on 09/29/17 01:05; Admin Dose 1 EA; Start 09/29/17 at 02:00 Meropenem/Sodium Chloride 50 ml @ 100 mls/hr Q12 IVPB Last administered on 11:09; Admin Dose 100 MLS/HR; Start 09/28/17 at 09:00 Colistimethate Sodium 75 mg/ Sodium Chloride 100 ml @ 200 mls/hr Q24H IVPB Last administered on 10/01/17 15:26; Admin Dose 200 MLS/HR; Start 09/28/17 at 14:45 Daptomycin 280 mg/ Sodium Chloride 100 ml @ 200 mls/hr Q48H IVPB Last administered on 09/30/17 18:13; Admin Dose 200 MLS/HR; Start 09/30/17 at 17: 00 Dextrose/Sodium Chloride (D5-NS) 1,000 ml @ 20 mls/hr Q24H IV Last administered on 10/01/17 08:01; Admin Dose 20 MLS/HR; Start 09/28/17 at 19:00 Insulin Aspart (Novolog Insulin Pen) NOVOLOG *MILD* ALGORITHM Q4 SC Last administered on 10/02/17 10:23; Admin Dose 1 UNIT; Start 09/29/17 at 09:00 Collagenase (Santyl) 1 applic DAILY TOP Last administered on 10/02/17 10:27; Admin Dose 1 APPLIC; Start 09/29/17 at 12:00 Acyclovir 400 mg 400 mg TID PO Last administered on 10/02/17 10:08; Admin Dose 400 MG; Start 09/29/17 at 21:00 Phenylephrine HCl/ Dextrose (Erwin-Syneph/D5W) 500 ml @ 37.5 mls/hr TITRATE IV Last administered on 09/30/17 15:01; Admin Dose 120 MLS/HR; Start 09/29/17 at 18:00 Docusate Sodium (Colace Liquid Cup) 100 mg BID GTB Last administered on 10:07; Admin Dose 100 MG; Start 09/30/17 at 21:00 Multivitamins/ Minerals (Theragran-M) 1 tab DAILY GTB Last administered on 10:07; Admin Dose 1 TAB; Start 09/30/17 at 10:00 Lansoprazole 30 mg 30 mg DAILY@06 GTB Last administered on 10/02/17 06:40; Admin Dose 30 MG; Start 09/30/17 at 12:15 Norepinephrine/ Dextrose (Levophed/D5W) 500 ml @ 0.93 mls/hr TITRATE IV Last administered on 10/01/17 23:10; Admin Dose 0.93 MLS/HR; Start 09/30/17 at 15: 30 Hydrogen Peroxide (Hydrogen Peroxide) 1 applic BID TOP Last administered on 10:27; Admin Dose 1 APPLIC; Start 09/30/17 at 21:00 Heparin Sodium (Porcine) (Heparin (5000 Units/0.5 ml)) 5,000 unit BID SC Last administered on 10/02/17 10:22; Admin Dose 5,000 UNIT; Start 10/01/17 at 21: 00 Assessment/Plan Chief Complaint/Hosp Course SUBJECTIVE: Obtunded, afebrile, on Levophed gtt, in no distress. MICROBIOLOGY: Blood cultures remain negative. INDWELLINGS: Trach, PEG, right subclavian permacath, right upper extremity midline, right thigh EDY. ANTIMICROBIALS: 1. Daptomycin. 2. Colistin. 3. Fluconazole. 4. Acyclovir MICROBIOLOGY: Wound cultures in [facility] grew Acinetobacter baumannii and VRE, as well as Klebsiella pneumoniae, ESBL and pseudomonas. Urine culture grew Dulce glabrata. PHYSICAL EXAMINATION: GENERAL: This is a chronically ill-appearing, fragile, debilitated, elderly man who is very weak, lethargic, in no distress. HEENT: Head atraumatic, normocephalic. Sclerae anicteric. Buccal mucosa dry. NECK: Supple. Tracheostomy present. CHEST: Rise symmetrical. Breath sounds diminished to bases. HEART: S1, S2. ABDOMEN: Distended, bowel tones hypoactive. EXTREMITIES: With bilateral edema. SKIN: With multiple wounds. Patient also has right upper back rash, possibly herpetic. ASSESSMENT: 1. Septic shock. 2. Status post right femoral pseudoaneurysm repair. 3. Multiple chronic wounds with sacral osteomyelitis, status post debridement. 4. G-tube site cellulitis. 5. Nontoxic megacolon. 6. Urinary tract infection. 7. Right upper back rash, possible shingles. 8. Deep venous thrombosis, status post inferior vena cava filter placement. 9. Anemia. 10. Atrial fibrillation. 11. Failure to thrive. 12. End stage renal disease, hemodialysis dependent. 13. Acute encephalopathy PLAN: The patient remains unchanged, hemodynamically unstable, on appropriate antibiotics. Pending CT head. Prognosis guarded, follow recommendations of specialists. [facility] staff Problems: CLAYTON SHANKAR NP Oct 02, 2017 12:48
--- NOTE | 2017-10-02 13:13 | CONS ---
Date/Time of Note Date/Time of Note DATE: 10/02/17 TIME: 13:10 Consult Date/Type/Reason Admit Date/Time Sep 27, 2017 at 21:00 Initial Consult Date 09/28/17 Type of Consultation: CARDIOLOGY Ordering Provider: PHILIPPE JUARES DO Subjective Cardiology follow up note S: D/ W staff and rhythm was reviewed. pt remains in Afib. HR is under good control he remains lethargic and novnerbal now still on vent in ICU O: General: Thin. s/p trach on vent. no acute distress HEENT: NC/AT. pupils are equal. round. NECK: s/p trach. . no stridor. CV: irregularly irregular. systolic murmur; no gallop or rubs. PULM: no wheezing . + rhonchi. GI: SOFT, NT, ND, no rebound or guarding vascular: R fem s/p surgery with dressing and drainage . Extremity: + B/L LE edema. no clubbing. neuro: drowsy. sleeping Psych: calm and pleasant rectal: deferred : normal male Derm: With diffuse ecchymosis throughout the body. ECHO: 1. Normal left ventricular systolic function. Normal left ventricular cavity size. Moderate concentric left ventricular hypertrophy. Ejection fraction is visually estimated at 65 %. Abnormal Diastolic Function. 2. Aortic sclerosis without stenosis. Objective Vital Signs Date Time Temp Pulse Resp B/P Pulse Ox O2 Delivery O2 Flow Rate FiO2 10/02/17 12:00 91 10/02/17 11:00 20 98 35 10/02/17 09:00 97/44 Mechanical Ventilator 10/02/17 08:00 97.9 Intake and Output 10/01/17 10/01/17 10/02/17 15:00 23:00 07:00 Intake Total 503 ml 681 ml 545 ml Output Total 0 ml 0 ml 0 ml Balance 503 ml 681 ml 545 ml Results/Medications Result Diagram: 10/02/1731 10/02/17 0531 Results 24 hrs Laboratory Tests Test 10/01/17 13:56 10/01/17 17:28 10/01/17 20:56 10/02/17 05:31 Bedside Glucose 135 120 111 White Blood Count 12.4 H Red Blood Count 3.00 L Hemoglobin 9.7 L Hematocrit 29.8 L Mean Corpuscular Volume 99.3 Mean Corpuscular Hemoglobin 32.3 Mean Corpuscular Hemoglobin Concent 32.6 Red Cell Distribution Width 18.9 H Platelet Count 126 #L Mean Platelet Volume 13.3 H Neutrophils % 81.5 H Lymphocytes % 6.5 L Monocytes % 6.3 Eosinophils % 4.7 Basophils % 0.3 Nucleated Red Blood Cells % 0.0 Neutrophils # 10.1 H Lymphocytes # 0.8 Monocytes # 0.8 Eosinophils # 0.6 H Basophils # 0.0 Nucleated Red Blood Cells # 0.0 Sodium Level 132 L Potassium Level 4.7 Chloride Level 98 Carbon Dioxide Level 26 Anion Gap 13 Blood Urea Nitrogen 51 H Creatinine 2.48 H Glucose Level 107 Calcium Level 9.0 Phosphorus Level 4.6 Magnesium Level 2.4 Test 10/02/17 05:39 10/02/17 10:05 Bedside Glucose 126 142 Medications Current Medications Hydromorphone HCl (Dilaudid) 0.5 mg Q4H PRN IV PAIN Last administered on 17:00; Admin Dose 0.5 MG; Start 09/27/17 at 23:00 Midodrine (Proamatine) 10 mg TID@, GTB Last administered on 10/02/17 10:08; Admin Dose 10 MG; Start 09/28/17 at 09:00 Ascorbic Acid (Vitamin C) 500 mg DAILY GTB Last administered on 10/02/17 10: 07; Admin Dose 500 MG; Start 09/28/17 at 09:00 Cholecalciferol (Vitamin D) 2,000 unit DAILY GTB Last administered on 10:08; Admin Dose 2,000 UNIT; Start 09/28/17 at 09:00 Digoxin (Digoxin) 0.125 mg DAILY GTB Last administered on 10/02/17 10:09; Admin Dose 0.125 MG; Start 09/28/17 at 09:00 Ferrous Sulfate (Feosol Liquid Cup) 300 mg DAILY GTB Last administered on 10/02 10:07; Admin Dose 300 MG; Start 09/28/17 at 09:00 Fluconazole (Diflucan) 100 mg DAILY GTB Last administered on 10/02/17 10:07; Admin Dose 100 MG; Start 09/28/17 at 09:00 Folic Acid (Folic Acid) 1 mg DAILY GTB Last administered on 10/02/17 10:07; Admin Dose 1 MG; Start 09/28/17 at 09:00 Acetaminophen/ Hydrocodone Bitart ([place] (5/325)) 1 tab DAILY GTB Last administered on 09/30/17 09:34; Admin Dose 1 TAB; Start 09/28/17 at 09:00; Status Future Hold Lactobacillus Acidophilus/ Rhamnosus (Culturelle) 1 cap BID GTB Last administered on 10/02/17 10:07; Admin Dose 1 CAP; Start 09/28/17 at 09:00 Sertraline HCl (Zoloft) 25 mg QHS GTB Last administered on 10/01/17 21:10; Admin Dose 25 MG; Start 09/28/17 at 21:00 Tramadol HCl (Ultram) 50 mg DAILY PRN GTB FOR WOUND CARE; Start 09/28/17 at 08 :00; Status Future Hold Tramadol HCl (Ultram) 50 mg Q8 GTB Last administered on 09/30/17 21:43; Admin Dose 50 MG; Start 09/28/17 at 14:00 Zolpidem Tartrate (Ambien) 5 mg QHS PRN GTB INSOMNIA; Start 09/28/17 at 08:00 Diagnostic Test (Pha) (Accu-Chek) 1 ea 02 XX Last administered on 09/29/17 01 :05; Admin Dose 1 EA; Start 09/29/17 at 02:00 Diagnostic Test (Pha) 1 ea 1 ea 02 XX Last administered on 09/29/17 01:05; Admin Dose 1 EA; Start 09/29/17 at 02:00 Meropenem/Sodium Chloride 50 ml @ 100 mls/hr Q12 IVPB Last administered on 11:09; Admin Dose 100 MLS/HR; Start 09/28/17 at 09:00 Colistimethate Sodium 75 mg/ Sodium Chloride 100 ml @ 200 mls/hr Q24H IVPB Last administered on 10/01/17 15:26; Admin Dose 200 MLS/HR; Start 09/28/17 at 14:45 Daptomycin 280 mg/ Sodium Chloride 100 ml @ 200 mls/hr Q48H IVPB Last administered on 09/30/17 18:13; Admin Dose 200 MLS/HR; Start 09/30/17 at 17: 00 Dextrose/Sodium Chloride (D5-NS) 1,000 ml @ 20 mls/hr Q24H IV Last administered on 10/01/17 08:01; Admin Dose 20 MLS/HR; Start 09/28/17 at 19:00 Insulin Aspart (Novolog Insulin Pen) NOVOLOG *MILD* ALGORITHM Q4 SC Last administered on 10/02/17 10:23; Admin Dose 1 UNIT; Start 09/29/17 at 09:00 Collagenase (Santyl) 1 applic DAILY TOP Last administered on 10/02/17 10:27; Admin Dose 1 APPLIC; Start 09/29/17 at 12:00 Acyclovir 400 mg 400 mg TID PO Last administered on 10/02/17 10:08; Admin Dose 400 MG; Start 09/29/17 at 21:00 Phenylephrine HCl/ Dextrose (Erwin-Syneph/D5W) 500 ml @ 37.5 mls/hr TITRATE IV Last administered on 09/30/17 15:01; Admin Dose 120 MLS/HR; Start 09/29/17 at 18:00 Docusate Sodium (Colace Liquid Cup) 100 mg BID GTB Last administered on 10:07; Admin Dose 100 MG; Start 09/30/17 at 21:00 Multivitamins/ Minerals (Theragran-M) 1 tab DAILY GTB Last administered on 10:07; Admin Dose 1 TAB; Start 09/30/17 at 10:00 Lansoprazole 30 mg 30 mg DAILY@06 GTB Last administered on 10/02/17 06:40; Admin Dose 30 MG; Start 09/30/17 at 12:15 Norepinephrine/ Dextrose (Levophed/D5W) 500 ml @ 0.93 mls/hr TITRATE IV Last administered on 10/01/17 23:10; Admin Dose 0.93 MLS/HR; Start 09/30/17 at 15: 30 Hydrogen Peroxide (Hydrogen Peroxide) 1 applic BID TOP Last administered on 10:27; Admin Dose 1 APPLIC; Start 09/30/17 at 21:00 Heparin Sodium (Porcine) (Heparin (5000 Units/0.5 ml)) 5,000 unit BID SC Last administered on 10/02/17 10:22; Admin Dose 5,000 UNIT; Start 10/01/17 at 21: 00 Assessment/Plan Chief Complaint/Hosp Course 1. SHOCK: probably septic 2. Afib: persistent/ chronic now. 3. hypoxemic resp failure: s/p trach vent dependent now. 4. hx anemia and GI bleed: off of any anticoagulation 5. 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 s/p multiple infections 8. dysphagia: s/p PEG 9. encephalopathy: Recommendations: I will continue with the pressors for now Vent support will be continued. Hemodialysis will be continued. Heart rate clinically remained stable Transfusion as needed will be given.. Patient currently off of full anticoagulation due to concern about history of severe anemia as well as GI bleed and OB positive stool. Head CT Continue with the ICU care. Thank you for his referral. I will continue to follow along with you. DIOR JEFFERSON MD [facility] Problems: DIOR JEFFERSON MD Oct 02, 2017 13:13
[2017-10-02] MEDS: COLISTIMETHATE 75 MG in SOD CHLORIDE 0.9% 100 ML IVPB SCH (15:27)
[2017-10-02] MEDS: DAPTOMYCIN 280 MG in SOD CHLORIDE 0.9% 100 ML IVPB SCH (16:59)
--- NOTE | 2017-10-02 17:49 | PN ---
Date/Time of Note Date/Time of Note DATE: 10/02/17 TIME: 17:46 Assessment/Plan Lines/Catheters IV Catheter Type (from [facility]): PERMACATH [place] in Place (from [facility]): No Assessment/Plan Chief Complaint/Hosp Course 1. Sacral & left trochanter pressure ulcers: -debridement prn -local care -frequent turning and off-loading -low air loss mattress -vitamin c -short term zinc -optimize nutrition 2. 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 Ventilator dependent respiratory failure -per pulm -pulm toilet -respiratory treatments 4. End-stage renal disease -HD per renal -avoid/limit nephrotoxic meds -judicious fluids -renally dose meds 5. Anemia: no acute bleed noted -closely monitor surgical site -transfuse as needed 6. Atrial fibrillation -rate control -cards optimization 7. Dysphagia with feeding tube: on tube feeds -cont tf with aspiration precautions 8. Leukocytosis: afebrile -monitor -further workup if persistent 9. Thrombocytosis -supportive 10. Hypoalbuminemia: likely multifactorial -optimize nutrition -medical management of inflammation/infection 11. Electrolyte imbalance -optimize lytes and monitor 12. Hypotension, sepsis -supportive/pressor -judicious fluids Thank you Problems: Subjective 24 Hr Interval Summary Lethargic. Continues on pressor and ICU care. No fevers, congested cough, sz, rash, bloating. No bleeding. No vomiting. Min drainage from wounds. Exam/Review of Systems Vital Signs Vitals Vital Signs Date Time Temp Pulse Resp B/P Pulse Ox O2 Delivery O2 Flow Rate FiO2 10/02/17 16:00 91 10/02/17 15:00 19 100 35 10/02/17 09:00 97/44 Mechanical Ventilator 10/02/17 08:00 97.9 Intake and Output 10/01/17 10/01/17 10/02/17 15:00 23:00 07:00 Intake Total 503 ml 681 ml 545 ml Output Total 0 ml 0 ml 0 ml Balance 503 ml 681 ml 545 ml Exam Free Text/Dictation Constitutional: Not following commands, ventilated Psych: lethargic Head: atraumatic, normocephalic Eyes: nl lids, nl sclera ENMT: mucosa pink and moist, nl nasal mucosa & septum Neck: non-tender, other (trach-vent), supple Respiratory: diminished breath sounds, No labored breathing Cardiovascular: irregular rhythm, other (afib) Gastrointestinal: non-tender, other (peg), soft Genitourinary - Male: nl penis, nl scrotum Musculoskeletal: nl extremities to inspection, swelling (right leg 3+; left leg 2+) Extremities: cap refill 2 s Neurological: No nl speech, No nl strength (gen weakness) Skin: Femoral incision with dressing, sacral and left troch pressure ulcers Lymph: No nl lymph nodes Results Result Diagram: 10/02/17 0531 10/02/17 0531 CORA MATAMOROS MD Oct 02, 2017 17:49
--- NOTE | 2017-10-02 19:26 | CONS ---
Date/Time of Note Date/Time of Note DATE: 10/02/17 TIME: 19:25 Assessment/Plan Assessment/Plan Additional Assessment/Plan Assessment/Plan Additional Assessment/Plan 1. Repair of pseudoaneurysm right femoral artery 2. Shock secondary to volume depletion versus sepsis 3. Nontoxic megacolon resolved 4. Dysphagia status post PEG, no evidence of cellulitis 5. Vent dependent respiratory failure 6. Anemia no evidence of active bleeding. 7. Renal failure. 8. Decubitus ulcer 9. Septic shock Plan Continue all supportive care Continue feeding Antibiotic as per ID Monitor for active GI bleeding Consultation Date/Type/Reason Admit Date/Time Sep 27, 2017 at 21:00 Initial Consult Date 09/28/17 Type of Consultation: CARDIOLOGY Referring Provider: PHILIPPE JUARES DO 24 HR Interval Summary Subjective hx not possible: pt non-verbal Exam/Review of Systems Vital Signs Vitals Vital Signs Date Time Temp Pulse Resp B/P Pulse Ox O2 Delivery O2 Flow Rate FiO2 10/02/17 17:00 95 19 100 35 10/02/17 15:45 101/46 10/02/17 15:00 Mechanical Ventilator 10/02/17 12:00 98.2 Intake and Output 10/01/17 10/01/17 10/02/17 15:00 23:00 07:00 Intake Total 503 ml 681 ml 545 ml Output Total 0 ml 0 ml 0 ml Balance 503 ml 681 ml 545 ml Exam Constitutional: alert, oriented, well developed Psych: nl mood/affect, no complaints Head: atraumatic, normocephalic Eyes: EOMI, PERRL, nl conjunctiva, nl lids, nl sclera ENMT: nl external ears & nose, nl lips & teeth, nl nasal mucosa & septum Neck: non-tender, supple Respiratory: clear to auscultation, normal air movement Cardiovascular: nl pulses, regular rate and rhythm Gastrointestinal: nl liver, spleen, non-tender, soft Musculoskeletal: nl extremities to inspection, nl gait and stance Extremities: normal pulses Neurological: [employer] [facility] [facility] II-XII intact, nl mental status, nl speech, nl strength Skin: nl turgor, No rash or lesions Lymph: nl lymph nodes Results Result Diagram: 10/02/17 0531 10/02/17 0531 Results 24 hrs Laboratory Tests Test 10/01/17 20:56 10/02/17 05:31 10/02/17 05:39 10/02/17 10:05 Bedside Glucose 111 126 142 White Blood Count 12.4 H Red Blood Count 3.00 L Hemoglobin 9.7 L Hematocrit 29.8 L Mean Corpuscular Volume 99.3 Mean Corpuscular Hemoglobin 32.3 Mean Corpuscular Hemoglobin Concent 32.6 Red Cell Distribution Width 18.9 H Platelet Count 126 #L Mean Platelet Volume 13.3 H Neutrophils % 81.5 H Lymphocytes % 6.5 L Monocytes % 6.3 Eosinophils % 4.7 Basophils % 0.3 Nucleated Red Blood Cells % 0.0 Neutrophils # 10.1 H Lymphocytes # 0.8 Monocytes # 0.8 Eosinophils # 0.6 H Basophils # 0.0 Nucleated Red Blood Cells # 0.0 Sodium Level 132 L Potassium Level 4.7 Chloride Level 98 Carbon Dioxide Level 26 Anion Gap 13 Blood Urea Nitrogen 51 H Creatinine 2.48 H Glucose Level 107 Calcium Level 9.0 Phosphorus Level 4.6 Magnesium Level 2.4 Test 10/02/17 14:47 10/02/17 17:02 Bedside Glucose 128 109 Medications Medications Current Medications Hydromorphone HCl (Dilaudid) 0.5 mg Q4H PRN IV PAIN Last administered on 17:00; Admin Dose 0.5 MG; Start 09/27/17 at 23:00 Midodrine (Proamatine) 10 mg TID@,17 GTB Last administered on 10/02/17 16:59; Admin Dose 10 MG; Start 09/28/17 at 09:00 Ascorbic Acid (Vitamin C) 500 mg DAILY GTB Last administered on 10/02/17 10: 07; Admin Dose 500 MG; Start 09/28/17 at 09:00 Cholecalciferol (Vitamin D) 2,000 unit DAILY GTB Last administered on 10:08; Admin Dose 2,000 UNIT; Start 09/28/17 at 09:00 Digoxin (Digoxin) 0.125 mg DAILY GTB Last administered on 10/02/17 10:09; Admin Dose 0.125 MG; Start 09/28/17 at 09:00 Ferrous Sulfate (Feosol Liquid Cup) 300 mg DAILY GTB Last administered on 10/02 10:07; Admin Dose 300 MG; Start 09/28/17 at 09:00 Fluconazole (Diflucan) 100 mg DAILY GTB Last administered on 10/02/17 10:07; Admin Dose 100 MG; Start 09/28/17 at 09:00 Folic Acid (Folic Acid) 1 mg DAILY GTB Last administered on 10/02/17 10:07; Admin Dose 1 MG; Start 09/28/17 at 09:00 Acetaminophen/ Hydrocodone Bitart ([place] (5/325)) 1 tab DAILY GTB Last administered on 09/30/17 09:34; Admin Dose 1 TAB; Start 09/28/17 at 09:00; Status Future Hold Lactobacillus Acidophilus/ Rhamnosus (Culturelle) 1 cap BID GTB Last administered on 10/02/17 10:07; Admin Dose 1 CAP; Start 09/28/17 at 09:00 Sertraline HCl (Zoloft) 25 mg QHS GTB Last administered on 10/01/17 21:10; Admin Dose 25 MG; Start 09/28/17 at 21:00 Tramadol HCl (Ultram) 50 mg DAILY PRN GTB FOR WOUND CARE; Start 09/28/17 at 08 :00; Status Future Hold Tramadol HCl (Ultram) 50 mg Q8 GTB Last administered on 09/30/17 21:43; Admin Dose 50 MG; Start 09/28/17 at 14:00 Zolpidem Tartrate (Ambien) 5 mg QHS PRN GTB INSOMNIA; Start 09/28/17 at 08:00 Diagnostic Test (Pha) (Accu-Chek) 1 ea 02 XX Last administered on 09/29/17 01 :05; Admin Dose 1 EA; Start 09/29/17 at 02:00 Diagnostic Test (Pha) 1 ea 1 ea 02 XX Last administered on 09/29/17 01:05; Admin Dose 1 EA; Start 09/29/17 at 02:00 Meropenem/Sodium Chloride 50 ml @ 100 mls/hr Q12 IVPB Last administered on 11:09; Admin Dose 100 MLS/HR; Start 09/28/17 at 09:00 Colistimethate Sodium 75 mg/ Sodium Chloride 100 ml @ 200 mls/hr Q24H IVPB Last administered on 10/02/17 15:27; Admin Dose 200 MLS/HR; Start 09/28/17 at 14:45 Daptomycin 280 mg/ Sodium Chloride 100 ml @ 200 mls/hr Q48H IVPB Last administered on 10/02/17 16:59; Admin Dose 200 MLS/HR; Start 09/30/17 at 17: 00 Dextrose/Sodium Chloride (D5-NS) 1,000 ml @ 20 mls/hr Q24H IV Last administered on 10/01/17 08:01; Admin Dose 20 MLS/HR; Start 09/28/17 at 19:00 Insulin Aspart (Novolog Insulin Pen) NOVOLOG *MILD* ALGORITHM Q4 SC Last administered on 10/02/17 10:23; Admin Dose 1 UNIT; Start 09/29/17 at 09:00 Collagenase (Santyl) 1 applic DAILY TOP Last administered on 10/02/17 10:27; Admin Dose 1 APPLIC; Start 09/29/17 at 12:00 Acyclovir 400 mg 400 mg TID PO Last administered on 10/02/17 14:38; Admin Dose 400 MG; Start 09/29/17 at 21:00 Phenylephrine HCl/ Dextrose (Erwin-Syneph/D5W) 500 ml @ 37.5 mls/hr TITRATE IV Last administered on 09/30/17 15:01; Admin Dose 120 MLS/HR; Start 09/29/17 at 18:00 Docusate Sodium (Colace Liquid Cup) 100 mg BID GTB Last administered on 10:07; Admin Dose 100 MG; Start 09/30/17 at 21:00 Multivitamins/ Minerals (Theragran-M) 1 tab DAILY GTB Last administered on 10:07; Admin Dose 1 TAB; Start 09/30/17 at 10:00 Lansoprazole 30 mg 30 mg DAILY@06 GTB Last administered on 10/02/17 06:40; Admin Dose 30 MG; Start 09/30/17 at 12:15 Norepinephrine/ Dextrose (Levophed/D5W) 500 ml @ 0.93 mls/hr TITRATE IV Last administered on 10/01/17 23:10; Admin Dose 0.93 MLS/HR; Start 09/30/17 at 15: 30 Hydrogen Peroxide (Hydrogen Peroxide) 1 applic BID TOP Last administered on 10:27; Admin Dose 1 APPLIC; Start 09/30/17 at 21:00 Heparin Sodium (Porcine) (Heparin (5000 Units/0.5 ml)) 5,000 unit BID SC Last administered on 10/02/17 10:22; Admin Dose 5,000 UNIT; Start 10/01/17 at 21: 00 LIANNA BOWLING MD Oct 02, 2017 19:26
[2017-10-02] MEDS: DEXTROSE 5%-0.9% NACL 1,000 ML IV SCH (20:45)
[2017-10-02] MEDS: SERTRALINE 50 MG TAB GTB SCH (20:47)
[2017-10-03] VITALS (99 sets, daily range): BP systolic 90–130; BP diastolic 39–105; PULSE 72–108; RESP 13–34
[2017-10-03] MEDS: INSULIN ASPART [NOVOLOG] 3 ML PEN SC SCH ×6 (01:00→20:41)
[2017-10-03] MEDS: ACCU-CHEK XX SCH ×2 (02:00)
--- NOTE | 2017-10-03 04:06 | RADRPT ---
PROCEDURE: CT Brain without contrast. CLINICAL INDICATION: Altered mental status. TECHNIQUE: A CT of the brain was performed on a GE 64-slice CT scanner utilizing axial imaging fro m the skull base through the vertex without intravenous contrast. Multiplanar reformatted images wer e made. The CTDIvol is 43.95 mGy and the DLP is 720.23 mGycm. DICOM images are available. One or more of the following dose reduction techniques were used: - Automated exposure control. - Adjustment of the mA and/or kV according to patient size. - Use of iterative reconstruction technique. COMPARISON: None. FINDINGS: There is no intracranial hemorrhage, mass effect, or midline shift. No extra-axial fluid collection is seen. Moderate generalized parenchymal volume loss is identified with compensatory ventricular and sulcal enlargement. Mild decreased attenuation is seen in the periventricular and deep white ma tter, compatible with microvascular ischemic disease. The weiner white matter differentiation is well preserved with no acute infarct detected. There is diffuse atherosclerotic calcifications within the bilateral internal carotid artery siphons. The osseous structures are intact. There is extensive opacification of the bilateral mastoid sinuse s without coalescence of the mastoid air cells or associated soft tissue mass. Moderate opacificatio n of the right sphenoid sinus is demonstrated. IMPRESSION: 1. No acute intracranial pathology. 2. Moderate generalized parenchymal volume loss. 3. Mild microvascular white matter ischemic changes. 4. Moderate opacification of the bilateral sphenoid sinuses without coalescence of the mastoid air cells. 5. Moderate opacification of the right sphenoid sinus. RPTAT: HRSR Physician Kirt Date Time Electronically viewed and signed by Physician Kirt on 10/03/2017 04:06 RR/
[2017-10-03 05:09] LABS: BASOPHILS % 0.4 % (0.0-2.0); EOSINOPHILS # 0.7 10^3/ul (0.0-0.5); EOSINOPHILS % 5.9 % (0.0-7.0); HEMATOCRIT 28.1 % (42.0-52.0); HEMOGLOBIN 9.1 g/dl (14.0-18.0); LYMPHOCYTES % 8.4 % (15.0-51.0); MEAN CORPUSCULAR HEMOGLOBIN 31.5 pg (29.0-33.0); MEAN CORPUSCULAR HGB CONC 32.4 g/dl (32.0-37.0); MEAN CORPUSCULAR VOLUME 97.2 fl (82.0-101.0); MEAN PLATELET VOLUME 11.8 fl (7.4-10.4); MONOCYTE # 0.9 10^3/ul (0.3-0.9); MONOCYTES % 7.5 % (0.0-11.0); NEUTROPHIL # 8.8 10^3/ul (1.6-7.5); NEUTROPHILS % 77.1 % (39.0-77.0); PLATELET COUNT 113 10^3/UL (140-415); RED BLOOD COUNT 2.89 10^6/ul (4.70-6.10); RED CELL DISTRIBUTION WIDTH 19.1 % (11.5-14.5); WHITE BLOOD COUNT 11.4 10^3/ul (4.8-10.8)
[2017-10-03] MEDS: traMADol 50 MG TAB GTB SCH ×3 (05:27→22:00)
[2017-10-03] MEDS: LANSOPRAZOLE 30 MG CAP GTB SCH (05:28)
[2017-10-03 05:47] LABS: CALCIUM 8.6 mg/dl (8.4-10.2); CREATININE 1.99 mg/dl (0.61-1.24); MAGNESIUM 2.4 mg/dl (1.7-2.5); PHOSPHORUS 3.7 mg/dl (2.5-4.9); POTASSIUM 4.1 mmol/L (3.5-5.1)
--- NOTE | 2017-10-03 07:15 | CONS ---
Date/Time of Note Date/Time of Note DATE: 10/03/17 TIME: 07:14 Consult Date/Type/Reason Admit Date/Time Sep 27, 2017 at 21:00 Initial Consult Date 09/28/17 Type of Consultation: CARDIOLOGY Ordering Provider: PHILIPPE JUARES DO Subjective Cardiology follow up note S: D/ W staff and rhythm was reviewed. pt remains in Afib. HR is under good control he remains lethargic and novnerbal now still on vent in ICU O: General: Thin. s/p trach on vent. no acute distress HEENT: NC/AT. pupils are equal. round. NECK: s/p trach. . no stridor. CV: irregularly irregular. systolic murmur; no gallop or rubs. PULM: no wheezing . + rhonchi. GI: SOFT, NT, ND, no rebound or guarding vascular: R fem s/p surgery with dressing and drainage . Extremity: increased B/L LE edema. no clubbing. neuro: lethargic Psych: calm and pleasant rectal: deferred : normal male Derm: With diffuse ecchymosis throughout the body. ECHO: 1. Normal left ventricular systolic function. Normal left ventricular cavity size. Moderate concentric left ventricular hypertrophy. Ejection fraction is visually estimated at 65 %. Abnormal Diastolic Function. 2. Aortic sclerosis without stenosis. Objective Vital Signs Date Time Temp Pulse Resp B/P Pulse Ox O2 Delivery O2 Flow Rate FiO2 10/03/17 05:40 95 21 99 30 10/03/17 05:30 112/55 Mechanical Ventilator 10/03/17 04:00 98.2 Intake and Output 10/02/17 10/02/17 10/03/17 15:00 23:00 07:00 Intake Total 1117.16 ml 786.29 ml 392.10 ml Output Total 1500 ml 0 ml Balance -382.84 ml 786.29 ml 392.10 ml Results/Medications Result Diagram: 10/03/17 0400 10/03/17 0400 Results 24 hrs Laboratory Tests Test 10/02/17 10:05 10/02/17 14:47 10/02/17 17:02 10/02/17 20:43 Bedside Glucose 142 128 109 117 Test 10/03/17 03:00 10/03/17 04:00 10/03/17 04:57 Bedside Glucose 126 105 White Blood Count 11.4 H Red Blood Count 2.89 L Hemoglobin 9.1 L Hematocrit 28.1 L Mean Corpuscular Volume 97.2 Mean Corpuscular Hemoglobin 31.5 Mean Corpuscular Hemoglobin Concent 32.4 Red Cell Distribution Width 19.1 H Platelet Count 113 L Mean Platelet Volume 11.8 H Neutrophils % 77.1 H Lymphocytes % 8.4 L Monocytes % 7.5 Eosinophils % 5.9 Basophils % 0.4 Nucleated Red Blood Cells % 0.0 Neutrophils # 8.8 H Lymphocytes # 1.0 Monocytes # 0.9 Eosinophils # 0.7 H Basophils # 0.0 Nucleated Red Blood Cells # 0.0 Sodium Level 134 L Potassium Level 4.1 Chloride Level 98 Carbon Dioxide Level 27 Anion Gap 13 Blood Urea Nitrogen 35 #H Creatinine 1.99 H Glucose Level 103 Calcium Level 8.6 Phosphorus Level 3.7 Magnesium Level 2.4 Random Cortisol 12.5 Medications Current Medications Hydromorphone HCl (Dilaudid) 0.5 mg Q4H PRN IV PAIN Last administered on 17:00; Admin Dose 0.5 MG; Start 09/27/17 at 23:00 Midodrine (Proamatine) 10 mg TID@,,17 GTB Last administered on 10/02/17 16:59; Admin Dose 10 MG; Start 09/28/17 at 09:00 Ascorbic Acid (Vitamin C) 500 mg DAILY GTB Last administered on 10/02/17 10: 07; Admin Dose 500 MG; Start 09/28/17 at 09:00 Cholecalciferol (Vitamin D) 2,000 unit DAILY GTB Last administered on 10:08; Admin Dose 2,000 UNIT; Start 09/28/17 at 09:00 Digoxin (Digoxin) 0.125 mg DAILY GTB Last administered on 10/02/17 10:09; Admin Dose 0.125 MG; Start 09/28/17 at 09:00 Ferrous Sulfate (Feosol Liquid Cup) 300 mg DAILY GTB Last administered on 10/02 10:07; Admin Dose 300 MG; Start 09/28/17 at 09:00 Fluconazole (Diflucan) 100 mg DAILY GTB Last administered on 10/02/17 10:07; Admin Dose 100 MG; Start 09/28/17 at 09:00 Folic Acid (Folic Acid) 1 mg DAILY GTB Last administered on 10/02/17 10:07; Admin Dose 1 MG; Start 09/28/17 at 09:00 Acetaminophen/ Hydrocodone Bitart ([place] (5/325)) 1 tab DAILY GTB Last administered on 09/30/17 09:34; Admin Dose 1 TAB; Start 09/28/17 at 09:00; Status Future Hold Lactobacillus Acidophilus/ Rhamnosus (Culturelle) 1 cap BID GTB Last administered on 10/02/17 20:46; Admin Dose 1 CAP; Start 09/28/17 at 09:00 Sertraline HCl (Zoloft) 25 mg QHS GTB Last administered on 10/02/17 20:47; Admin Dose 25 MG; Start 09/28/17 at 21:00 Tramadol HCl (Ultram) 50 mg DAILY PRN GTB FOR WOUND CARE; Start 09/28/17 at 08 :00; Status Future Hold Tramadol HCl (Ultram) 50 mg Q8 GTB Last administered on 10/02/17 23:25; Admin Dose 50 MG; Start 09/28/17 at 14:00 Zolpidem Tartrate (Ambien) 5 mg QHS PRN GTB INSOMNIA; Start 09/28/17 at 08:00 Diagnostic Test (Pha) (Accu-Chek) 1 ea 02 XX Last administered on 09/29/17 01 :05; Admin Dose 1 EA; Start 09/29/17 at 02:00 Diagnostic Test (Pha) 1 ea 1 ea 02 XX Last administered on 09/29/17 01:05; Admin Dose 1 EA; Start 09/29/17 at 02:00 Meropenem/Sodium Chloride 50 ml @ 100 mls/hr Q12 IVPB Last administered on 20:46; Admin Dose 100 MLS/HR; Start 09/28/17 at 09:00 Colistimethate Sodium 75 mg/ Sodium Chloride 100 ml @ 200 mls/hr Q24H IVPB Last administered on 10/02/17 15:27; Admin Dose 200 MLS/HR; Start 09/28/17 at 14:45 Daptomycin 280 mg/ Sodium Chloride 100 ml @ 200 mls/hr Q48H IVPB Last administered on 10/02/17 16:59; Admin Dose 200 MLS/HR; Start 09/30/17 at 17: 00 Dextrose/Sodium Chloride (D5-NS) 1,000 ml @ 20 mls/hr Q24H IV Last administered on 10/02/17 20:45; Admin Dose 20 MLS/HR; Start 09/28/17 at 19:00 Insulin Aspart (Novolog Insulin Pen) NOVOLOG *MILD* ALGORITHM Q4 SC Last administered on 10/02/17 10:23; Admin Dose 1 UNIT; Start 09/29/17 at 09:00 Collagenase (Santyl) 1 applic DAILY TOP Last administered on 10/02/17 10:27; Admin Dose 1 APPLIC; Start 09/29/17 at 12:00 Acyclovir 400 mg 400 mg TID PO Last administered on 10/02/17 20:46; Admin Dose 400 MG; Start 09/29/17 at 21:00 Phenylephrine HCl/ Dextrose (Erwin-Syneph/D5W) 500 ml @ 37.5 mls/hr TITRATE IV Last administered on 09/30/17 15:01; Admin Dose 120 MLS/HR; Start 09/29/17 at 18:00 Docusate Sodium (Colace Liquid Cup) 100 mg BID GTB Last administered on 20:46; Admin Dose 100 MG; Start 09/30/17 at 21:00 Multivitamins/ Minerals (Theragran-M) 1 tab DAILY GTB Last administered on 10:07; Admin Dose 1 TAB; Start 09/30/17 at 10:00 Lansoprazole 30 mg 30 mg DAILY@06 GTB Last administered on 10/03/17 05:28; Admin Dose 30 MG; Start 09/30/17 at 12:15 Norepinephrine/ Dextrose (Levophed/D5W) 500 ml @ 0.93 mls/hr TITRATE IV Last administered on 10/03/17 05:32; Admin Dose 0.93 MLS/HR; Start 09/30/17 at 15: 30 Hydrogen Peroxide (Hydrogen Peroxide) 1 applic BID TOP Last administered on 20:46; Admin Dose 1 APPLIC; Start 09/30/17 at 21:00 Heparin Sodium (Porcine) (Heparin (5000 Units/0.5 ml)) 5,000 unit BID SC Last administered on 11/14/17at 20:52; Admin Dose 5,000 UNIT; Start 10/01/17 at 21: 00 Assessment/Plan Chief Complaint/Hosp Course 1. SHOCK: probably septic 2. Afib: persistent/ chronic now. 3. hypoxemic resp failure: s/p trach vent dependent now. 4. hx anemia and GI bleed: off of any anticoagulation 5. 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 s/p multiple infections 8. dysphagia: s/p PEG 9. encephalopathy: Recommendations: I will continue with the pressors for now Vent support will be continued. Hemodialysis will be continued. Heart rate clinically remained stable Transfusion as needed will be given.. Patient currently off of full anticoagulation due to concern about history of severe anemia as well as GI bleed and OB positive stool. Head CT done 10/02/17 did not show any acute CVA prognosis is poor Continue with the ICU care. Thank you for his referral. I will continue to follow along with you. DIOR JEFFERSON MD [facility] Problems: DIOR JEFFERSON MD Oct 03, 2017 07:15
--- NOTE | 2017-10-03 08:06 | RADRPT ---
PROCEDURE: XR Chest. CLINICAL INDICATION: Shortness of breath. TECHNIQUE: Single frontal view. COMPARISON: 09/28/2017. FINDINGS: The tracheostomy tube and tunneled right internal jugular vein dialysis catheter remain in satisfact ory position. There is bilateral pulmonary airspace and interstitial disease consistent with pulmona ry edema or bilateral pneumonia, worse than seen previously. The heart is enlarged. There is calcification in the aorta consistent with atherosclerosis. There are small bilateral pleural effusions. There is no pneumothorax. IMPRESSION: 1. Worse appearance of the lungs. 2. No other change from the 09/28/2017 chest radiograph. RPTAT: QQ .Merrill Amador MD, MD Date Time Electronically viewed and signed by .Merrill Amador MD, MD on 10/03/2017 08:06 .R/
[2017-10-03] MEDS: COLLAGENASE 30 GM TUBE TOP SCH (09:00)
--- NOTE | 2017-10-03 09:11 | PN ---
DATE: 10/03/2017 SUBJECTIVE: Yesterday I spoke with the patient's son regarding changing code status. The patient's son wishes to defer to the patient's , which is the DPOA. I left a message for the patient's w luis this morning to discuss code status and to consider possible NO CODE. The patient still remains critically ill on pressor support. Had dialysis yesterday with 1 liter removed. The patient's men giana status is marginally improved from yesterday. OBJECTIVE: VITAL SIGNS: Blood pressure is 112/55, respirations 21, temperature 98.6, pulse 94. HEENT: Head is normocephalic. NECK: Shows trach. HEART: Regular rate. LUNGS: Show diminished breath sounds at the base. ABDOMEN: Soft, nontender to palpation. Positive PEG. EXTREMITIES: Negative for clubbing, cyanosis. Diffuse anasarca. DERMATOLOGIC: No rashes. MUSCULOSKELETAL: Positive wound. NEUROLOGIC: No change in exam. MEDICATIONS: The patient's medications have been reviewed. LABORATORY DATA: Shows white count 11.4, hemoglobin 9.1, hematocrit 28.1, platelet count is 113. S odium 134, potassium 4.1, BUN 35, creatinine 1.99. IMAGING: Chest x-ray shows worse appearance of the lungs, bilateral air space disease. CT scan of the brain shows no acute pathology. ASSESSMENT AND PLAN: 1. Septic shock, etiology is multifactorial secondary to pneumonia, wounds. The patient is on broa d spectrum antibiotics and on pressor support, will continue. Wean off pressors if possible. 2. Ventilator dependent respiratory failure. Vent settings and ABG is reviewed. Continue to monit or. Follow up with pulmonary. 3. Right pseudoaneurysm status post surgical repair. Continue to monitor. 4. Acute encephalopathy, etiology is toxic metabolic. The patient's CT scan showed no acute findin gs. Continue to hold opioid medications and monitor. 5. End-stage renal disease. Plan for hemodialysis tomorrow. 6. Anemia. Monitor hemoglobin and hematocrit levels. Will give Epogen with dialysis. 7. Mineral bone disorder. Monitor calcium and phosphorus levels. 8. Hyponatremia. Continue hypertonic fluids and free water intake. 9. Atrial fibrillation, rate controlled. Continue medical management. 10. Volume overload secondary to congestive heart failure, acute kidney injury. Continue ultrafilt ration dialysis if patient can hemodynamically can tolerate. 11. Dysphagia, status post PEG, continue tube feeding. 12. Decubitus wound. Continue wound care. 13. Gastrointestinal and deep venous thrombosis prophylaxis. Please note I spent over 30 minutes of critical care time with this patient. Dictated By: PHILIPPE JUARES DO NR/NTS Conf#: [id number] DID#: [id number] CC: RON CASTRO MD;*EndCC*
--- NOTE | 2017-10-03 10:21 | PN ---
Date/Time of Note Date/Time of Note DATE: 10/03/17 TIME: 10:18 Assessment/Plan Lines/Catheters IV Catheter Type (from [facility]): PERMA CATH Pathak in Place (from [facility]): No Assessment/Plan Chief Complaint/Hosp Course 1. Hypotension, sepsis -supportive/pressor -judicious fluids 2. Sacral & left trochanter pressure ulcers: -debridement prn -local care -frequent turning and off-loading -low air loss mattress -vitamin c -short term zinc -optimize nutrition 3. 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 End-stage renal disease -HD per renal -avoid/limit nephrotoxic meds -judicious fluids -renally dose meds 5. Anemia: no acute bleed noted -closely monitor surgical site -transfuse as needed 6. Atrial fibrillation -rate control -cards optimization 7. Dysphagia with feeding tube: on tube feeds -cont tf with aspiration precautions 8. Leukocytosis: afebrile -monitor -further workup if persistent 9. Thrombocytosis -supportive 10. Hypoalbuminemia: likely multifactorial -optimize nutrition -medical management of inflammation/infection 11. Electrolyte imbalance -optimize lytes and monitor 12. Ventilator dependent respiratory failure -per pulm -pulm toilet -respiratory treatments Thank you Problems: Subjective 24 Hr Interval Summary Non communicative. Continues on pressor and ICU care. No fevers, congested cough, sz, rash, bloating. No bleeding. No vomiting. Min drainage from wounds. Exam/Review of Systems Vital Signs Vitals Vital Signs Date Time Temp Pulse Resp B/P Pulse Ox O2 Delivery O2 Flow Rate FiO2 10/03/17 09:05 97 17 98 30 10/03/17 08:45 108/46 10/03/17 08:00 98.7 Mechanical Ventilator Intake and Output 10/02/17 10/02/17 10/03/17 15:00 23:00 07:00 Intake Total 1117.16 ml 786.29 ml 392.10 ml Output Total 1500 ml 0 ml Balance -382.84 ml 786.29 ml 392.10 ml Exam Free Text/Dictation Constitutional: Not following commands, ventilated Psych: lethargic Head: atraumatic, normocephalic Eyes: nl lids, nl sclera ENMT: mucosa pink and moist, nl nasal mucosa & septum Neck: non-tender, other (trach-vent), supple Respiratory: diminished breath sounds, No labored breathing Cardiovascular: irregular rhythm, other (afib) Gastrointestinal: non-tender, other (peg), soft Genitourinary - Male: nl penis, nl scrotum Musculoskeletal: nl extremities to inspection, swelling (right leg 3+; left leg 2+) Extremities: cap refill 2 s Neurological: No nl speech, No nl strength (gen weakness) Skin: Femoral incision with dressing, sacral and left troch pressure ulcers Lymph: No nl lymph nodes Results Result Diagram: 10/03/1739910/03/17399 CORA MATAMOROS MD Oct 03, 2017 10:20
[2017-10-03 10:46] LABS: AADO2 Arterial 86.4 mmHg (7.0-24.0); Allen Test ACCEPTAB; Arterial Base Excess 1.7 mmol/L (-3.0-3); Arterial COHb 0.9 % (0.0-3.0); Arterial Fraction of Oxyhgb 90.5 % (93.0-99.0); Arterial HCO3 28.1 mmol/L (22.0-26.0); Arterial MetHb 0.2 % (0.0-1.5); Arterial Total Hemglobin 10.6 g/dl (12.0-18.0); MODE VENT - AC
--- NOTE | 2017-10-03 10:56 | CONS ---
Date/Time of Note Date/Time of Note DATE: 10/03/17 TIME: 10:55 Consult Date/Type/Reason Admit Date/Time Sep 27, 2017 at 21:00 Initial Consult Date 09/28/17 Type of Consultation: Pulmonary Ordering Provider: PHILIPPE JUARES DO Subjective No significant changes. Patient remains unresponsive on mechanical ventilation requiring vasopressor support. Objective Vital Signs Date Time Temp Pulse Resp B/P Pulse Ox O2 Delivery O2 Flow Rate FiO2 10/03/17 09:05 97 17 98 30 10/03/17 08:45 108/46 10/03/17 08:00 98.7 Mechanical Ventilator Intake and Output 10/02/17 10/02/17 10/03/17 14:59 22:59 06:59 Intake Total 1119.94 ml 788.16 ml 452.45 ml Output Total 1500 ml 0 ml Balance -380.06 ml 788.16 ml 452.45 ml Exam PHYSICAL EXAMINATION GENERAL: Elderly gentleman, on mechanical ventilation via tracheostomy VITAL SIGNS: see below. HEENT: Pupils equal, round, and reactive to light. Tracheostomy site clean and intact. CARDIAC: S1, S2, 2/6 systolic ejection murmur CHEST: Diminished air entry bilaterally. ABDOMEN: Mildly distended. Bowel sounds present no guarding or rebound EXTREMITIES: No cyanosis, clubbing edema +1 NEUROLOGIC: Unable to assess Results/Medications Result Diagram: 10/03/17 0400 10/03/17 0400 Results 24 hrs Laboratory Tests Test 10/02/17 14:47 10/02/17 17:02 10/02/17 20:43 10/03/17 03:00 Bedside Glucose 128 109 117 126 Test 10/03/17 04:00 10/03/17 04:57 10/03/17 09:52 White Blood Count 11.4 H Red Blood Count 2.89 L Hemoglobin 9.1 L Hematocrit 28.1 L Mean Corpuscular Volume 97.2 Mean Corpuscular Hemoglobin 31.5 Mean Corpuscular Hemoglobin Concent 32.4 Red Cell Distribution Width 19.1 H Platelet Count 113 L Mean Platelet Volume 11.8 H Neutrophils % 77.1 H Lymphocytes % 8.4 L Monocytes % 7.5 Eosinophils % 5.9 Basophils % 0.4 Nucleated Red Blood Cells % 0.0 Neutrophils # 8.8 H Lymphocytes # 1.0 Monocytes # 0.9 Eosinophils # 0.7 H Basophils # 0.0 Nucleated Red Blood Cells # 0.0 Sodium Level 134 L Potassium Level 4.1 Chloride Level 98 Carbon Dioxide Level 27 Anion Gap 13 Blood Urea Nitrogen 35 #H Creatinine 1.99 H Glucose Level 103 Calcium Level 8.6 Phosphorus Level 3.7 Magnesium Level 2.4 Random Cortisol 12.5 Bedside Glucose 105 Blood Gas Specimen Source Blood arterial Arterial Blood Date Drawn 10/03/2017 10:30:19 AM Arterial Blood pH (Temp corrected) 7.344 L Arterial Blood pCO2 (Temp correct) 52.8 H Arterial Blood pO2 (Temp corrected) 65.5 L Arterial Blood HCO3 28.1 H Arterial Blood Base Excess 1.7 Arterial Blood Oxygen Saturation 91.5 L Floyd Test ACCEPTAB Arterial Blood Gas Puncture Site Right Radial Arterial Blood Carboxyhemoglobin 0.9 Arterial Blood Methemoglobin 0.2 Blood Gas A-a O2 Differential 86.4 H Oxyhemoglobin Percent 90.5 L Total Hemoglobin 10.6 L Blood Gas Temperature 37.0 Blood Gas Respiration Rate 12.0 Blood Gas Actual Respiration Rate 19 Blood Gas Modality VENT - AC FiO2 30.0 Blood Gas Tidal Volume 450.0 Blood Gas Low PEEP Setting 5.0 Blood Gas Notified Whom JLD Blood Gas Notified Time 10/03/2017 10:46:12 AM Medications Current Medications Hydromorphone HCl (Dilaudid) 0.5 mg Q4H PRN IV PAIN Last administered on 17:00; Admin Dose 0.5 MG; Start 09/27/17 at 23:00 Midodrine (Proamatine) 10 mg TID@, GTB Last administered on 10/02/17 16:59; Admin Dose 10 MG; Start 09/28/17 at 09:00 Ascorbic Acid (Vitamin C) 500 mg DAILY GTB Last administered on 10/02/17 10: 07; Admin Dose 500 MG; Start 09/28/17 at 09:00 Cholecalciferol (Vitamin D) 2,000 unit DAILY GTB Last administered on 10:08; Admin Dose 2,000 UNIT; Start 09/28/17 at 09:00 Digoxin (Digoxin) 0.125 mg DAILY GTB Last administered on 10/02/17 10:09; Admin Dose 0.125 MG; Start 09/28/17 at 09:00 Ferrous Sulfate (Feosol Liquid Cup) 300 mg DAILY GTB Last administered on 10/02 10:07; Admin Dose 300 MG; Start 09/28/17 at 09:00 Fluconazole (Diflucan) 100 mg DAILY GTB Last administered on 10/02/17 10:07; Admin Dose 100 MG; Start 09/28/17 at 09:00 Folic Acid (Folic Acid) 1 mg DAILY GTB Last administered on 10/02/17 10:07; Admin Dose 1 MG; Start 09/28/17 at 09:00 Acetaminophen/ Hydrocodone Bitart (Price (5/325)) 1 tab DAILY GTB Last administered on 09/30/17 09:34; Admin Dose 1 TAB; Start 09/28/17 at 09:00; Status Future Hold Lactobacillus Acidophilus/ Rhamnosus (Culturelle) 1 cap BID GTB Last administered on 10/02/17 20:46; Admin Dose 1 CAP; Start 09/28/17 at 09:00 Sertraline HCl (Zoloft) 25 mg QHS GTB Last administered on 10/02/17 20:47; Admin Dose 25 MG; Start 09/28/17 at 21:00 Tramadol HCl (Ultram) 50 mg DAILY PRN GTB FOR WOUND CARE; Start 09/28/17 at 08 :00; Status Future Hold Tramadol HCl (Ultram) 50 mg Q8 GTB Last administered on 10/02/17 23:25; Admin Dose 50 MG; Start 09/28/17 at 14:00 Zolpidem Tartrate (Ambien) 5 mg QHS PRN GTB INSOMNIA; Start 09/28/17 at 08:00 Diagnostic Test (Pha) (Accu-Chek) 1 ea 02 XX Last administered on 09/29/17 01 :05; Admin Dose 1 EA; Start 09/29/17 at 02:00 Diagnostic Test (Pha) 1 ea 1 ea 02 XX Last administered on 09/29/17 01:05; Admin Dose 1 EA; Start 09/29/17 at 02:00 Meropenem/Sodium Chloride 50 ml @ 100 mls/hr Q12 IVPB Last administered on 20:46; Admin Dose 100 MLS/HR; Start 09/28/17 at 09:00 Colistimethate Sodium 75 mg/ Sodium Chloride 100 ml @ 200 mls/hr Q24H IVPB Last administered on 10/02/17 15:27; Admin Dose 200 MLS/HR; Start 09/28/17 at 14:45 Daptomycin 280 mg/ Sodium Chloride 100 ml @ 200 mls/hr Q48H IVPB Last administered on 10/02/17 16:59; Admin Dose 200 MLS/HR; Start 09/30/17 at 17: 00 Dextrose/Sodium Chloride (D5-NS) 1,000 ml @ 20 mls/hr Q24H IV Last administered on 10/02/17 20:45; Admin Dose 20 MLS/HR; Start 09/28/17 at 19:00 Insulin Aspart (Novolog Insulin Pen) NOVOLOG *MILD* ALGORITHM Q4 SC Last administered on 10/02/17 10:23; Admin Dose 1 UNIT; Start 09/29/17 at 09:00 Collagenase (Santyl) 1 applic DAILY TOP Last administered on 10/02/17 10:27; Admin Dose 1 APPLIC; Start 09/29/17 at 12:00 Acyclovir 400 mg 400 mg TID PO Last administered on 10/02/17 20:46; Admin Dose 400 MG; Start 09/29/17 at 21:00 Phenylephrine HCl/ Dextrose (Erwin-Syneph/D5W) 500 ml @ 37.5 mls/hr TITRATE IV Last administered on 09/30/17 15:01; Admin Dose 120 MLS/HR; Start 09/29/17 at 18:00 Docusate Sodium (Colace Liquid Cup) 100 mg BID GTB Last administered on 20:46; Admin Dose 100 MG; Start 09/30/17 at 21:00 Multivitamins/ Minerals (Theragran-M) 1 tab DAILY GTB Last administered on 10:07; Admin Dose 1 TAB; Start 09/30/17 at 10:00 Lansoprazole 30 mg 30 mg DAILY@06 GTB Last administered on 10/03/17 05:28; Admin Dose 30 MG; Start 09/30/17 at 12:15 Norepinephrine/ Dextrose (Levophed/D5W) 500 ml @ 0.93 mls/hr TITRATE IV Last administered on 10/03/17 05:32; Admin Dose 0.93 MLS/HR; Start 09/30/17 at 15: 30 Hydrogen Peroxide (Hydrogen Peroxide) 1 applic BID TOP Last administered on 20:46; Admin Dose 1 APPLIC; Start 09/30/17 at 21:00 Heparin Sodium (Porcine) (Heparin (5000 Units/0.5 ml)) 5,000 unit BID SC Last administered on 10/02/17 20:52; Admin Dose 5,000 UNIT; Start 10/01/17 at 21: 00 Assessment/Plan Chief Complaint/Hosp Course Assessment 1. Patient admitted for repair of right femoral artery pseudoaneurysm status post repair. 2. Septic shock on mechanical ventilation 3. Dysphagia with G-tube 4. End-stage renal failure on hemodialysis 5. Idiopathic pulmonary fibrosis. Chronic respiratory failure on mechanical ventilation 6. Encephalopathy possible toxic metabolic. CT head demonstrates no acute intracranial pathology. Plan 1. Continue mechanical ventilation 2. Continue antibiotics 3. Titrate vasopressors to keep map greater than 65 4. Would consider not removing fluid during hemodialysis as patient remains vasopressor dependent Family discussion regarding goals of care is overall prognosis extremely poor consider palliative care approach. Primary team attempted to discuss goals of care with family. Problems: ANGELINA TRUJILLO MD, [facility] [place] Oct 03, 2017 10:56
[2017-10-03] MEDS: LACTOBACILLUS RHAMNOSUS CAP GTB SCH ×2 (11:08→20:39)
[2017-10-03] MEDS: ACYCLOVIR 400 MG TAB PO SCH ×3 (11:08→20:39)
[2017-10-03] MEDS: CHOLECALCIFEROL 2,000 UNIT CAP GTB SCH (11:09)
[2017-10-03] MEDS: MULTIVITAMINS/MINERALS TAB GTB SCH (11:09)
[2017-10-03] MEDS: FERROUS SULFATE 60 MG/ML 5ML CUP GTB SCH (11:09)
[2017-10-03] MEDS: DOCUSATE SODIUM 10 MG/ML (10ML CUP) GTB SCH ×2 (11:09→20:39)
[2017-10-03] MEDS: MIDODRINE 5 MG TAB GTB SCH ×3 (11:09→18:11)
[2017-10-03] MEDS: FLUCONAZOLE 100 MG TAB GTB SCH (11:09)
[2017-10-03] MEDS: ASCORBIC ACID 500 MG TAB GTB SCH (11:09)
[2017-10-03] MEDS: FOLIC ACID 1 MG TAB GTB SCH (11:09)
[2017-10-03] MEDS: DIGOXIN 0.125 MG TAB GTB SCH (11:10)
[2017-10-03] MEDS: HYDROGEN PEROXIDE 118 ML TOP SCH ×2 (11:15→20:40)
[2017-10-03] MEDS: MEROPENEM 500MG/50 ML (PMX) 50 ML IVPB SCH ×2 (11:16→20:41)
[2017-10-03] MEDS: HEPARIN 5,000 UNIT/0.5 ML VIAL SC SCH ×2 (11:30→20:46)
--- NOTE | 2017-10-03 12:05 | CONS ---
Date/Time of Note Date/Time of Note DATE: 10/03/17 TIME: 12:02 Consult Date/Type/Reason Admit Date/Time Sep 27, 2017 at 21:00 Initial Consult Date 09/28/17 Type of Consultation: ID Ordering Provider: PHILIPPE JUARES DO Objective Vital Signs Date Time Temp Pulse Resp B/P Pulse Ox O2 Delivery O2 Flow Rate FiO2 10/03/17 11:33 88 19 100 30 10/03/17 08:45 108/46 10/03/17 08:00 98.7 Mechanical Ventilator Intake and Output 10/02/17 10/02/17 10/03/17 15:00 23:00 07:00 Intake Total 1117.16 ml 786.29 ml 422.10 ml Output Total 1500 ml 0 ml Balance -382.84 ml 786.29 ml 422.10 ml Results/Medications Result Diagram: 10/03/17 0400 10/03/17 0400 Results 24 hrs Laboratory Tests Test 10/02/17 14:47 10/02/17 17:02 10/02/17 20:43 10/03/17 03:00 Bedside Glucose 128 109 117 126 Test 10/03/17 04:00 10/03/17 04:57 10/03/17 09:52 10/03/17 11:27 White Blood Count 11.4 H Red Blood Count 2.89 L Hemoglobin 9.1 L Hematocrit 28.1 L Mean Corpuscular Volume 97.2 Mean Corpuscular Hemoglobin 31.5 Mean Corpuscular Hemoglobin Concent 32.4 Red Cell Distribution Width 19.1 H Platelet Count 113 L Mean Platelet Volume 11.8 H Neutrophils % 77.1 H Lymphocytes % 8.4 L Monocytes % 7.5 Eosinophils % 5.9 Basophils % 0.4 Nucleated Red Blood Cells % 0.0 Neutrophils # 8.8 H Lymphocytes # 1.0 Monocytes # 0.9 Eosinophils # 0.7 H Basophils # 0.0 Nucleated Red Blood Cells # 0.0 Sodium Level 134 L Potassium Level 4.1 Chloride Level 98 Carbon Dioxide Level 27 Anion Gap 13 Blood Urea Nitrogen 35 #H Creatinine 1.99 H Glucose Level 103 Calcium Level 8.6 Phosphorus Level 3.7 Magnesium Level 2.4 Random Cortisol 12.5 Bedside Glucose 105 139 Blood Gas Specimen Source Blood arterial Arterial Blood Date Drawn 10/03/2017 10:30:19 AM Arterial Blood pH (Temp corrected) 7.344 L Arterial Blood pCO2 (Temp correct) 52.8 H Arterial Blood pO2 (Temp corrected) 65.5 L Arterial Blood HCO3 28.1 H Arterial Blood Base Excess 1.7 Arterial Blood Oxygen Saturation 91.5 L Floyd Test ACCEPTAB Arterial Blood Gas Puncture Site Right Radial Arterial Blood Carboxyhemoglobin 0.9 Arterial Blood Methemoglobin 0.2 Blood Gas A-a O2 Differential 86.4 H Oxyhemoglobin Percent 90.5 L Total Hemoglobin 10.6 L Blood Gas Temperature 37.0 Blood Gas Respiration Rate 12.0 Blood Gas Actual Respiration Rate 19 Blood Gas Modality VENT - AC FiO2 30.0 Blood Gas Tidal Volume 450.0 Blood Gas Low PEEP Setting 5.0 Blood Gas Notified Whom JLD Blood Gas Notified Time 10/03/2017 10:46:12 AM Medications Current Medications Hydromorphone HCl (Dilaudid) 0.5 mg Q4H PRN IV PAIN Last administered on 17:00; Admin Dose 0.5 MG; Start 09/27/17 at 23:00 Midodrine (Proamatine) 10 mg TID@,,17 GTB Last administered on 10/03/17 11:09; Admin Dose 10 MG; Start 09/28/17 at 09:00 Ascorbic Acid (Vitamin C) 500 mg DAILY GTB Last administered on 10/03/17 11: 09; Admin Dose 500 MG; Start 09/28/17 at 09:00 Cholecalciferol (Vitamin D) 2,000 unit DAILY GTB Last administered on 11:09; Admin Dose 2,000 UNIT; Start 09/28/17 at 09:00 Digoxin (Digoxin) 0.125 mg DAILY GTB Last administered on 10/03/17 11:10; Admin Dose 0.125 MG; Start 09/28/17 at 09:00 Ferrous Sulfate (Feosol Liquid Cup) 300 mg DAILY GTB Last administered on 10/03 11:09; Admin Dose 300 MG; Start 09/28/17 at 09:00 Fluconazole (Diflucan) 100 mg DAILY GTB Last administered on 10/03/17 11:09; Admin Dose 100 MG; Start 09/28/17 at 09:00 Folic Acid (Folic Acid) 1 mg DAILY GTB Last administered on 10/03/17 11:09; Admin Dose 1 MG; Start 09/28/17 at 09:00 Acetaminophen/ Hydrocodone Bitart ([place] (5/325)) 1 tab DAILY GTB Last administered on 09/30/17 09:34; Admin Dose 1 TAB; Start 09/28/17 at 09:00; Status Future Hold Lactobacillus Acidophilus/ Rhamnosus (Culturelle) 1 cap BID GTB Last administered on 10/03/17 11:08; Admin Dose 1 CAP; Start 09/28/17 at 09:00 Sertraline HCl (Zoloft) 25 mg QHS GTB Last administered on 10/02/17 20:47; Admin Dose 25 MG; Start 09/28/17 at 21:00 Tramadol HCl (Ultram) 50 mg DAILY PRN GTB FOR WOUND CARE; Start 09/28/17 at 08 :00; Status Future Hold Tramadol HCl (Ultram) 50 mg Q8 GTB Last administered on 10/02/17 23:25; Admin Dose 50 MG; Start 09/28/17 at 14:00 Zolpidem Tartrate (Ambien) 5 mg QHS PRN GTB INSOMNIA; Start 09/28/17 at 08:00 Diagnostic Test (Pha) (Accu-Chek) 1 ea 02 XX Last administered on 09/29/17 01 :05; Admin Dose 1 EA; Start 09/29/17 at 02:00 Diagnostic Test (Pha) 1 ea 1 ea 02 XX Last administered on 09/29/17 01:05; Admin Dose 1 EA; Start 09/29/17 at 02:00 Meropenem/Sodium Chloride 50 ml @ 100 mls/hr Q12 IVPB Last administered on 11:16; Admin Dose 100 MLS/HR; Start 09/28/17 at 09:00 Colistimethate Sodium 75 mg/ Sodium Chloride 100 ml @ 200 mls/hr Q24H IVPB Last administered on 10/02/17 15:27; Admin Dose 200 MLS/HR; Start 09/28/17 at 14:45 Daptomycin 280 mg/ Sodium Chloride 100 ml @ 200 mls/hr Q48H IVPB Last administered on 10/02/17 16:59; Admin Dose 200 MLS/HR; Start 09/30/17 at 17: 00 Dextrose/Sodium Chloride (D5-NS) 1,000 ml @ 20 mls/hr Q24H IV Last administered on 10/02/17 20:45; Admin Dose 20 MLS/HR; Start 09/28/17 at 19:00 Insulin Aspart (Novolog Insulin Pen) NOVOLOG *MILD* ALGORITHM Q4 SC Last administered on 10/02/17 10:23; Admin Dose 1 UNIT; Start 09/29/17 at 09:00 Collagenase (Santyl) 1 applic DAILY TOP Last administered on 10/03/17 09:00; Admin Dose 1 APPLIC; Start 09/29/17 at 12:00 Acyclovir 400 mg 400 mg TID PO Last administered on 10/03/17 11:08; Admin Dose 400 MG; Start 09/29/17 at 21:00 Phenylephrine HCl/ Dextrose (Erwin-Syneph/D5W) 500 ml @ 37.5 mls/hr TITRATE IV Last administered on 09/30/17 15:01; Admin Dose 120 MLS/HR; Start 09/29/17 at 18:00 Docusate Sodium (Colace Liquid Cup) 100 mg BID GTB Last administered on 11:09; Admin Dose 100 MG; Start 09/30/17 at 21:00 Multivitamins/ Minerals (Theragran-M) 1 tab DAILY GTB Last administered on 11:09; Admin Dose 1 TAB; Start 09/30/17 at 10:00 Lansoprazole 30 mg 30 mg DAILY@06 GTB Last administered on 10/03/17 05:28; Admin Dose 30 MG; Start 09/30/17 at 12:15 Norepinephrine/ Dextrose (Levophed/D5W) 500 ml @ 0.93 mls/hr TITRATE IV Last administered on 10/03/17 05:32; Admin Dose 0.93 MLS/HR; Start 09/30/17 at 15: 30 Hydrogen Peroxide (Hydrogen Peroxide) 1 applic BID TOP Last administered on 11:15; Admin Dose 1 APPLIC; Start 09/30/17 at 21:00 Heparin Sodium (Porcine) (Heparin (5000 Units/0.5 ml)) 5,000 unit BID SC Last administered on 10/03/17 11:30; Admin Dose 5,000 UNIT; Start 10/01/17 at 21: 00 Assessment/Plan Chief Complaint/Hosp Course SUBJECTIVE:No acute changes, afebrile, on Levophed gtt, in no distress. MICROBIOLOGY: Blood cultures remain negative. INDWELLINGS: Trach, PEG, right subclavian permacath, right upper extremity midline, right thigh EDY. ANTIMICROBIALS: 1. Daptomycin. 2. Colistin. 3. Fluconazole. 4. Acyclovir MICROBIOLOGY: Wound cultures in [facility] grew Acinetobacter baumannii and VRE, as well as Klebsiella pneumoniae, ESBL and pseudomonas. Urine culture grew Dulce glabrata. PHYSICAL EXAMINATION: GENERAL: This is a chronically ill-appearing, fragile, debilitated, elderly man who is lethargic, in no distress. HEENT: Head atraumatic, normocephalic. Sclerae anicteric. Buccal mucosa dry. NECK: Supple. Tracheostomy present. CHEST: Rise symmetrical. Breath sounds diminished to bases. HEART: S1, S2. ABDOMEN: Distended, bowel tones hypoactive. EXTREMITIES: With bilateral edema. SKIN: With multiple wounds. Patient also has right upper back rash, possibly herpetic. ASSESSMENT: 1. Septic shock. 2. Status post right femoral pseudoaneurysm repair. 3. Multiple chronic wounds with sacral osteomyelitis, status post debridement. 4. G-tube site cellulitis. 5. Nontoxic megacolon. 6. Urinary tract infection. 7. Right upper back rash, possible shingles. 8. Deep venous thrombosis, status post inferior vena cava filter placement. 9. Anemia. 10. Atrial fibrillation. 11. Failure to thrive. 12. End stage renal disease, hemodialysis dependent. 13. Acute encephalopathy==> CT brain neg PLAN: The patient remains unchanged, on appropriate antibiotics. CT head noted. Prognosis guarded, follow recommendations of specialists. [facility] staff Problems: CLAYTON SHANKAR NP Oct 03, 2017 12:05
[2017-10-03] MEDS: COLISTIMETHATE 75 MG in SOD CHLORIDE 0.9% 100 ML IVPB SCH (14:58)
--- NOTE | 2017-10-03 17:35 | CONS ---
Date/Time of Note Date/Time of Note DATE: 10/03/17 TIME: 17:33 Assessment/Plan Assessment/Plan Additional Assessment/Plan Additional Assessment/Plan 1. Repair of pseudoaneurysm right femoral artery 2. Shock secondary to volume depletion versus sepsis 3. Nontoxic megacolon resolved 4. Dysphagia status post PEG, no evidence of cellulitis 5. Vent dependent respiratory failure 6. Anemia no evidence of active bleeding. 7. Renal failure. On dialysis 8. Decubitus ulcer 9. Septic shock, patient is on Levophed titrating downward Plan Continue all supportive care Continue feeding Antibiotic as per ID Monitor for active GI bleeding Campbell flush as needed for distended abdomen Consultation Date/Type/Reason Admit Date/Time Sep 27, 2017 at 21:00 Initial Consult Date 09/28/17 Type of Consultation: ID Referring Provider: PHILIPPE JUARES DO 24 HR Interval Summary Free Text/Dictation Had good bowel movement Tolerating feeding at 30 cc/h Subjective hx not possible: pt non-verbal Exam/Review of Systems Vital Signs Vitals Vital Signs Date Time Temp Pulse Resp B/P Pulse Ox O2 Delivery O2 Flow Rate FiO2 10/03/17 16:00 95 10/03/17 15:45 20 120/54 99 10/03/17 15:40 30 10/03/17 15:00 Mechanical Ventilator 10/03/17 12:00 98.4 Intake and Output 10/02/17 10/02/17 10/03/17 15:00 23:00 07:00 Intake Total 1117.16 ml 786.29 ml 422.10 ml Output Total 1500 ml 0 ml Balance -382.84 ml 786.29 ml 422.10 ml Exam Constitutional: alert, oriented, well developed Psych: nl mood/affect, no complaints Head: atraumatic, normocephalic Eyes: EOMI, PERRL, nl conjunctiva, nl lids, nl sclera ENMT: nl external ears & nose, nl lips & teeth, nl nasal mucosa & septum Neck: non-tender, supple Respiratory: clear to auscultation, normal air movement Cardiovascular: nl pulses, regular rate and rhythm Gastrointestinal: nl liver, spleen, non-tender, soft Musculoskeletal: nl extremities to inspection, nl gait and stance Extremities: normal pulses Neurological: LAUNDRY R[employer]TE [employer]IVER II-XII intact, nl mental status, nl speech, nl strength Skin: nl turgor, No rash or lesions Lymph: nl lymph nodes Results Result Diagram: 10/03/17 0400 10/03/17 0400 Results 24 hrs Laboratory Tests Test 10/02/17 20:43 10/03/17 03:00 10/03/17 04:00 10/03/17 04:57 Bedside Glucose 117 126 105 White Blood Count 11.4 H Red Blood Count 2.89 L Hemoglobin 9.1 L Hematocrit 28.1 L Mean Corpuscular Volume 97.2 Mean Corpuscular Hemoglobin 31.5 Mean Corpuscular Hemoglobin Concent 32.4 Red Cell Distribution Width 19.1 H Platelet Count 113 L Mean Platelet Volume 11.8 H Neutrophils % 77.1 H Lymphocytes % 8.4 L Monocytes % 7.5 Eosinophils % 5.9 Basophils % 0.4 Nucleated Red Blood Cells % 0.0 Neutrophils # 8.8 H Lymphocytes # 1.0 Monocytes # 0.9 Eosinophils # 0.7 H Basophils # 0.0 Nucleated Red Blood Cells # 0.0 Sodium Level 134 L Potassium Level 4.1 Chloride Level 98 Carbon Dioxide Level 27 Anion Gap 13 Blood Urea Nitrogen 35 #H Creatinine 1.99 H Glucose Level 103 Calcium Level 8.6 Phosphorus Level 3.7 Magnesium Level 2.4 Random Cortisol 12.5 Test 10/03/17 09:52 10/03/17 11:27 10/03/17 15:01 Blood Gas Specimen Source Blood arterial Arterial Blood Date Drawn 10/03/2017 10:30:19 AM Arterial Blood pH (Temp corrected) 7.344 L Arterial Blood pCO2 (Temp correct) 52.8 H Arterial Blood pO2 (Temp corrected) 65.5 L Arterial Blood HCO3 28.1 H Arterial Blood Base Excess 1.7 Arterial Blood Oxygen Saturation 91.5 L Floyd Test ACCEPTAB Arterial Blood Gas Puncture Site Right Radial Arterial Blood Carboxyhemoglobin 0.9 Arterial Blood Methemoglobin 0.2 Blood Gas A-a O2 Differential 86.4 H Oxyhemoglobin Percent 90.5 L Total Hemoglobin 10.6 L Blood Gas Temperature 37.0 Blood Gas Respiration Rate 12.0 Blood Gas Actual Respiration Rate 19 Blood Gas Modality VENT - AC FiO2 30.0 Blood Gas Tidal Volume 450.0 Blood Gas Low PEEP Setting 5.0 Blood Gas Notified Whom JLD Blood Gas Notified Time 10/03/2017 10:46:12 AM Bedside Glucose 139 128 Medications Medications Current Medications Hydromorphone HCl (Dilaudid) 0.5 mg Q4H PRN IV PAIN Last administered on 17:00; Admin Dose 0.5 MG; Start 09/27/17 at 23:00 Midodrine (Proamatine) 10 mg TID@, GTB Last administered on 10/03/17 14:57; Admin Dose 10 MG; Start 09/28/17 at 09:00 Ascorbic Acid (Vitamin C) 500 mg DAILY GTB Last administered on 10/03/17 11: 09; Admin Dose 500 MG; Start 09/28/17 at 09:00 Cholecalciferol (Vitamin D) 2,000 unit DAILY GTB Last administered on 11:09; Admin Dose 2,000 UNIT; Start 09/28/17 at 09:00 Digoxin (Digoxin) 0.125 mg DAILY GTB Last administered on 10/03/17 11:10; Admin Dose 0.125 MG; Start 09/28/17 at 09:00 Ferrous Sulfate (Feosol Liquid Cup) 300 mg DAILY GTB Last administered on 10/03 11:09; Admin Dose 300 MG; Start 09/28/17 at 09:00 Fluconazole (Diflucan) 100 mg DAILY GTB Last administered on 10/03/17 11:09; Admin Dose 100 MG; Start 09/28/17 at 09:00 Folic Acid (Folic Acid) 1 mg DAILY GTB Last administered on 10/03/17 11:09; Admin Dose 1 MG; Start 09/28/17 at 09:00 Acetaminophen/ Hydrocodone Bitart ([place] (5/325)) 1 tab DAILY GTB Last administered on 09/30/17 09:34; Admin Dose 1 TAB; Start 09/28/17 at 09:00; Status Future Hold Lactobacillus Acidophilus/ Rhamnosus (Culturelle) 1 cap BID GTB Last administered on 10/03/17 11:08; Admin Dose 1 CAP; Start 09/28/17 at 09:00 Sertraline HCl (Zoloft) 25 mg QHS GTB Last administered on 10/02/17 20:47; Admin Dose 25 MG; Start 09/28/17 at 21:00 Tramadol HCl (Ultram) 50 mg DAILY PRN GTB FOR WOUND CARE; Start 09/28/17 at 08 :00; Status Future Hold Tramadol HCl (Ultram) 50 mg Q8 GTB Last administered on 10/02/17 23:25; Admin Dose 50 MG; Start 09/28/17 at 14:00 Zolpidem Tartrate (Ambien) 5 mg QHS PRN GTB INSOMNIA; Start 09/28/17 at 08:00 Diagnostic Test (Pha) 1 ea 1 ea 02 XX Last administered on 09/29/17 01:05; Admin Dose 1 EA; Start 09/29/17 at 02:00 Meropenem/Sodium Chloride 50 ml @ 100 mls/hr Q12 IVPB Last administered on 11:16; Admin Dose 100 MLS/HR; Start 09/28/17 at 09:00 Colistimethate Sodium 75 mg/ Sodium Chloride 100 ml @ 200 mls/hr Q24H IVPB Last administered on 10/03/17 14:58; Admin Dose 200 MLS/HR; Start 09/28/17 at 14:45 Daptomycin 280 mg/ Sodium Chloride 100 ml @ 200 mls/hr Q48H IVPB Last administered on 10/02/17 16:59; Admin Dose 200 MLS/HR; Start 09/30/17 at 17: 00 Dextrose/Sodium Chloride (D5-NS) 1,000 ml @ 20 mls/hr Q24H IV Last administered on 10/02/17 20:45; Admin Dose 20 MLS/HR; Start 09/28/17 at 19:00 Insulin Aspart (Novolog Insulin Pen) NOVOLOG *MILD* ALGORITHM Q4 SC Last administered on 10/02/17 10:23; Admin Dose 1 UNIT; Start 09/29/17 at 09:00 Collagenase (Santyl) 1 applic DAILY TOP Last administered on 10/03/17 09:00; Admin Dose 1 APPLIC; Start 09/29/17 at 12:00 Acyclovir 400 mg 400 mg TID PO Last administered on 10/03/17 14:57; Admin Dose 400 MG; Start 09/29/17 at 21:00 Phenylephrine HCl/ Dextrose (Erwin-Syneph/D5W) 500 ml @ 37.5 mls/hr TITRATE IV Last administered on 09/30/17 15:01; Admin Dose 120 MLS/HR; Start 09/29/17 at 18:00 Docusate Sodium (Colace Liquid Cup) 100 mg BID GTB Last administered on 11:09; Admin Dose 100 MG; Start 09/30/17 at 21:00 Multivitamins/ Minerals (Theragran-M) 1 tab DAILY GTB Last administered on 11:09; Admin Dose 1 TAB; Start 09/30/17 at 10:00 Lansoprazole (Prevacid) 30 mg DAILY@06 GTB Last administered on 10/03/17 05: 28; Admin Dose 30 MG; Start 09/30/17 at 12:15 Hydrogen Peroxide (Hydrogen Peroxide) 1 applic BID TOP Last administered on 11:15; Admin Dose 1 APPLIC; Start 09/30/17 at 21:00 Heparin Sodium (Porcine) (Heparin (5000 Units/0.5 ml)) 5,000 unit BID SC Last administered on 10/03/17 11:30; Admin Dose 5,000 UNIT; Start 10/01/17 at 21: 00 Brimonidine Tartrate 1 drop 1 drop BID BOTH EYES ; Start 10/03/17 at 21:00 Norepinephrine/ Dextrose (Levophed/D5W) 500 ml @ 1.87 mls/hr TITRATE IV Last administered on 10/03/17 07:00; Admin Dose 20.62 MLS/HR; Start 10/03/17 at 16 :30 LIANNA BOWLING MD Oct 03, 2017 17:35
[2017-10-03] MEDS: DEXTROSE 5%-0.9% NACL 1,000 ML IV SCH (20:39)
[2017-10-03] MEDS: SERTRALINE 50 MG TAB GTB SCH (20:39)
[2017-10-03] MEDS: BRIMONIDINE 0.1% 5 ML OPH BOTH EYES SCH (20:41)
[2017-10-03] MEDS ORDERED: BRIMONIDINE 0.1% 5 ML OPH BOTH EYES SCH (21:00)
[2017-10-04] VITALS (86 sets, daily range): BP systolic 72–131; BP diastolic 37–64; PULSE 71–101; RESP 8–30
[2017-10-04] MEDS: INSULIN ASPART [NOVOLOG] 3 ML PEN SC SCH ×6 (01:00→21:00)
[2017-10-04] MEDS: ACCU-CHEK XX SCH (02:00)
[2017-10-04 05:22] LABS: BASOPHILS % 0.4 % (0.0-2.0); EOSINOPHILS # 0.7 10^3/ul (0.0-0.5); EOSINOPHILS % 6.7 % (0.0-7.0); HEMATOCRIT 28.5 % (42.0-52.0); HEMOGLOBIN 9.3 g/dl (14.0-18.0); LYMPHOCYTES # 0.9 10^3/ul (0.8-2.9); LYMPHOCYTES % 8.3 % (15.0-51.0); MEAN CORPUSCULAR HEMOGLOBIN 31.2 pg (29.0-33.0); MEAN CORPUSCULAR HGB CONC 32.6 g/dl (32.0-37.0); MEAN CORPUSCULAR VOLUME 95.6 fl (82.0-101.0); MEAN PLATELET VOLUME 11.8 fl (7.4-10.4); MONOCYTE # 0.7 10^3/ul (0.3-0.9); MONOCYTES % 6.6 % (0.0-11.0); NEUTROPHIL # 8.5 10^3/ul (1.6-7.5); NEUTROPHILS % 77.3 % (39.0-77.0); PLATELET COUNT 117 10^3/UL (140-415); RED BLOOD COUNT 2.98 10^6/ul (4.70-6.10); RED CELL DISTRIBUTION WIDTH 19.1 % (11.5-14.5)
[2017-10-04 05:47] LABS: CALCIUM 8.7 mg/dl (8.4-10.2); CREATININE 2.1 mg/dl (0.61-1.24); MAGNESIUM 2.4 mg/dl (1.7-2.5); PHOSPHORUS 3.7 mg/dl (2.5-4.9); POTASSIUM 4.5 mmol/L (3.5-5.1)
[2017-10-04] MEDS: traMADol 50 MG TAB GTB SCH ×3 (05:56→22:00)
[2017-10-04] MEDS: LANSOPRAZOLE 30 MG CAP GTB SCH (05:56)
--- NOTE | 2017-10-04 07:42 | CONS ---
Date/Time of Note Date/Time of Note DATE: 10/04/17 TIME: 07:41 Consult Date/Type/Reason Admit Date/Time Sep 27, 2017 at 21:00 Initial Consult Date 09/28/17 Type of Consultation: cardiology Ordering Provider: PHILIPPE JUARES DO Subjective Cardiology follow up note S: D/ W staff and rhythm was reviewed. pt remains in Afib. HR is under good control. pt also with frequent PVC. he remains lethargic and novnerbal now still on vent in ICU pt is still on levophed drip O: General: Thin. s/p trach on vent. no acute distress HEENT: NC/AT. pupils are equal. round. NECK: s/p trach. . no stridor. CV: irregularly irregular. systolic murmur; no gallop or rubs. PULM: no wheezing . + rhonchi. GI: SOFT, NT, ND, no rebound or guarding vascular: R fem s/p surgery with dressing and drainage . Extremity: increased B/L LE edema. no clubbing. neuro: lethargic Psych: calm and pleasant rectal: deferred : normal male Derm: With diffuse ecchymosis throughout the body. CXR reviewed. ECHO: 1. Normal left ventricular systolic function. Normal left ventricular cavity size. Moderate concentric left ventricular hypertrophy. Ejection fraction is visually estimated at 65 %. Abnormal Diastolic Function. 2. Aortic sclerosis without stenosis. Objective Vital Signs Date Time Temp Pulse Resp B/P Pulse Ox O2 Delivery O2 Flow Rate FiO2 10/04/17 07:36 72 22 99 30 10/04/17 06:00 97/46 10/04/17 05:00 Mechanical Ventilator 10/04/17 04:00 98.6 Intake and Output 10/03/17 10/03/17 10/04/17 15:00 23:00 07:00 Intake Total 692.44 ml 651.85 ml 471.84 ml Balance 692.44 ml 651.85 ml 471.84 ml Results/Medications Result Diagram: 10/04/17 0420 10/04/17 0420 Results 24 hrs Laboratory Tests Test 10/03/17 09:52 10/03/17 11:27 10/03/17 15:01 10/03/17 18:09 Blood Gas Specimen Source Blood arterial Arterial Blood Date Drawn 10/03/2017 10:30:19 AM Arterial Blood pH (Temp corrected) 7.344 L Arterial Blood pCO2 (Temp correct) 52.8 H Arterial Blood pO2 (Temp corrected) 65.5 L Arterial Blood HCO3 28.1 H Arterial Blood Base Excess 1.7 Arterial Blood Oxygen Saturation 91.5 L Floyd Test ACCEPTAB Arterial Blood Gas Puncture Site Right Radial Arterial Blood Carboxyhemoglobin 0.9 Arterial Blood Methemoglobin 0.2 Blood Gas A-a O2 Differential 86.4 H Oxyhemoglobin Percent 90.5 L Total Hemoglobin 10.6 L Blood Gas Temperature 37.0 Blood Gas Respiration Rate 12.0 Blood Gas Actual Respiration Rate 19 Blood Gas Modality VENT - AC FiO2 30.0 Blood Gas Tidal Volume 450.0 Blood Gas Low PEEP Setting 5.0 Blood Gas Notified Whom JLD Blood Gas Notified Time 10/03/2017 10:46:12 AM Bedside Glucose 139 128 145 Test 10/03/17 20:38 10/04/17 02:40 10/04/17 04:20 10/04/17 04:52 Bedside Glucose 120 112 122 White Blood Count 11.0 H Red Blood Count 2.98 L Hemoglobin 9.3 L Hematocrit 28.5 L Mean Corpuscular Volume 95.6 Mean Corpuscular Hemoglobin 31.2 Mean Corpuscular Hemoglobin Concent 32.6 Red Cell Distribution Width 19.1 H Platelet Count 117 L Mean Platelet Volume 11.8 H Neutrophils % 77.3 H Lymphocytes % 8.3 L Monocytes % 6.6 Eosinophils % 6.7 Basophils % 0.4 Nucleated Red Blood Cells % 0.0 Neutrophils # 8.5 H Lymphocytes # 0.9 Monocytes # 0.7 Eosinophils # 0.7 H Basophils # 0.0 Nucleated Red Blood Cells # 0.0 Sodium Level 132 L Potassium Level 4.5 Chloride Level 101 Carbon Dioxide Level 24 Anion Gap 12 Blood Urea Nitrogen 44 H Creatinine 2.10 H Glucose Level 95 Calcium Level 8.7 Phosphorus Level 3.7 Magnesium Level 2.4 Medications Current Medications Hydromorphone HCl (Dilaudid) 0.5 mg Q4H PRN IV PAIN Last administered on 17:00; Admin Dose 0.5 MG; Start 09/27/17 at 23:00 Midodrine (Proamatine) 10 mg TID@,,17 GTB Last administered on 10/03/17 18:11; Admin Dose 10 MG; Start 09/28/17 at 09:00 Ascorbic Acid (Vitamin C) 500 mg DAILY GTB Last administered on 10/03/17 11: 09; Admin Dose 500 MG; Start 09/28/17 at 09:00 Cholecalciferol (Vitamin D) 2,000 unit DAILY GTB Last administered on 11:09; Admin Dose 2,000 UNIT; Start 09/28/17 at 09:00 Digoxin (Digoxin) 0.125 mg DAILY GTB Last administered on 10/03/17 11:10; Admin Dose 0.125 MG; Start 09/28/17 at 09:00 Ferrous Sulfate (Feosol Liquid Cup) 300 mg DAILY GTB Last administered on 10/03 11:09; Admin Dose 300 MG; Start 09/28/17 at 09:00 Fluconazole (Diflucan) 100 mg DAILY GTB Last administered on 10/03/17 11:09; Admin Dose 100 MG; Start 09/28/17 at 09:00 Folic Acid (Folic Acid) 1 mg DAILY GTB Last administered on 10/03/17 11:09; Admin Dose 1 MG; Start 09/28/17 at 09:00 Acetaminophen/ Hydrocodone Bitart ([place] (5/325)) 1 tab DAILY GTB Last administered on 09/30/17 09:34; Admin Dose 1 TAB; Start 09/28/17 at 09:00; Status Future Hold Lactobacillus Acidophilus/ Rhamnosus (Culturelle) 1 cap BID GTB Last administered on 10/03/17 20:39; Admin Dose 1 CAP; Start 09/28/17 at 09:00 Sertraline HCl (Zoloft) 25 mg QHS GTB Last administered on 10/03/17 20:39; Admin Dose 25 MG; Start 09/28/17 at 21:00 Tramadol HCl (Ultram) 50 mg DAILY PRN GTB FOR WOUND CARE; Start 09/28/17 at 08 :00; Status Future Hold Tramadol HCl (Ultram) 50 mg Q8 GTB Last administered on 10/02/17 23:25; Admin Dose 50 MG; Start 09/28/17 at 14:00 Zolpidem Tartrate (Ambien) 5 mg QHS PRN GTB INSOMNIA; Start 09/28/17 at 08:00 Diagnostic Test (Pha) 1 ea 1 ea 02 XX Last administered on 09/29/17 01:05; Admin Dose 1 EA; Start 09/29/17 at 02:00 Meropenem/Sodium Chloride 50 ml @ 100 mls/hr Q12 IVPB Last administered on 20:41; Admin Dose 100 MLS/HR; Start 09/28/17 at 09:00 Colistimethate Sodium 75 mg/ Sodium Chloride 100 ml @ 200 mls/hr Q24H IVPB Last administered on 10/03/17 14:58; Admin Dose 200 MLS/HR; Start 09/28/17 at 14:45 Daptomycin 280 mg/ Sodium Chloride 100 ml @ 200 mls/hr Q48H IVPB Last administered on 10/02/17 16:59; Admin Dose 200 MLS/HR; Start 09/30/17 at 17: 00 Dextrose/Sodium Chloride (D5-NS) 1,000 ml @ 20 mls/hr Q24H IV Last administered on 10/03/17 20:39; Admin Dose 20 MLS/HR; Start 09/28/17 at 19:00 Insulin Aspart (Novolog Insulin Pen) NOVOLOG *MILD* ALGORITHM Q4 SC Last administered on 10/03/17 18:21; Admin Dose 1 UNIT; Start 09/29/17 at 09:00 Collagenase (Santyl) 1 applic DAILY TOP Last administered on 10/03/17 09:00; Admin Dose 1 APPLIC; Start 09/29/17 at 12:00 Acyclovir 400 mg 400 mg TID PO Last administered on 10/03/17 20:39; Admin Dose 400 MG; Start 09/29/17 at 21:00 Phenylephrine HCl/ Dextrose (Erwin-Syneph/D5W) 500 ml @ 37.5 mls/hr TITRATE IV Last administered on 09/30/17 15:01; Admin Dose 120 MLS/HR; Start 09/29/17 at 18:00 Docusate Sodium (Colace Liquid Cup) 100 mg BID GTB Last administered on 20:39; Admin Dose 100 MG; Start 09/30/17 at 21:00 Multivitamins/ Minerals (Theragran-M) 1 tab DAILY GTB Last administered on 11:09; Admin Dose 1 TAB; Start 09/30/17 at 10:00 Lansoprazole (Prevacid) 30 mg DAILY@06 GTB Last administered on 10/04/17 05: 56; Admin Dose 30 MG; Start 09/30/17 at 12:15 Hydrogen Peroxide (Hydrogen Peroxide) 1 applic BID TOP Last administered on 20:40; Admin Dose 1 APPLIC; Start 09/30/17 at 21:00 Heparin Sodium (Porcine) (Heparin (5000 Units/0.5 ml)) 5,000 unit BID SC Last administered on 10/03/17 20:46; Admin Dose 5,000 UNIT; Start 10/01/17 at 21: 00 Brimonidine Tartrate 1 drop 1 drop BID BOTH EYES Last administered on 20:41; Admin Dose 1 DROP; Start 10/03/17 at 21:00 Norepinephrine/ Dextrose (Levophed/D5W) 500 ml @ 1.87 mls/hr TITRATE IV Last administered on 10/04/17 05:58; Admin Dose 13.12 MLS/HR; Start 10/03/17 at 16 :30 Assessment/Plan Chief Complaint/Hosp Course 1. SHOCK: probably septic 2. Afib: persistent/ chronic now. 3. hypoxemic resp failure: s/p trach vent dependent now. 4. hx anemia and GI bleed: off of any anticoagulation 5. 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 s/p multiple infections 8. dysphagia: s/p PEG 9. encephalopathy: 10. fluid overload/ CHF: CUTE on chronic due to fluid overload and diastolic failure. Recommendations: I will continue with the pressors for now. unable to wean off so far. Vent support will be continued. Hemodialysis will be continued. Heart rate clinically remained stable Transfusion as needed will be given.. Patient currently off of full anticoagulation due to concern about history of severe anemia as well as GI bleed and OB positive stool. Head CT done 10/02/17 did not show any acute CVA prognosis is poor Continue with the ICU care. Thank you for his referral. I will continue to follow along with you. DIOR JEFFERSON MD [facility] Problems: DIOR JEFFERSON MD Oct 04, 2017 07:42
--- NOTE | 2017-10-04 08:46 | PN ---
DATE: 10/04/2017 SUBJECTIVE: The patient remains critically ill on pressor support. Please note I spoke with the pa jenny's yesterday she still wishes the patient to be FULL CODE. No other events noted. OBJECTIVE: VITAL SIGNS: Blood pressure 97/46, respiration 19, pulse 79, temperature 98.6. HEENT: Head is normocephalic. NECK: Supple. HEART: Regular rate. LUNGS: Show diminished breath sounds at the base. ABDOMEN: Soft, nontender to palpation without rebound or guarding. EXTREMITIES: Negative for clubbing, cyanosis. Diffuse anasarca. DERMATOLOGIC: No rashes. MUSCULOSKELETAL: No joint effusions. NEUROLOGIC: No change in exam. MEDICATIONS: The patient's medications have been reviewed. LABORATORY DATA: Shows sodium 132, potassium 4.5, BUN 44, creatinine 2.10, white count 11.9, hemogl obin 9.3, hematocrit 28.5, platelet count is 117. Imaging studies have been reviewed. ASSESSMENT AND PLAN: 1. Septic shock, etiology is multifactorial secondary to pneumonia and underlying wounds. The mamadou ent remains on pressor support, on antibiotic therapy. We will continue. 2. Ventilator dependent respiratory failure. Vent settings and ABG is reviewed. Continue to monit or. Follow up with pulmonary. 3. Right pseudoaneurysm status post surgical repair. Continue to monitor. 4. Acute encephalopathy, etiology toxic metabolic. The patient has had marginal improvement in men giana status. Continue to monitor. 5. End-stage renal disease. Plan for dialysis today. 6. Volume overload secondary to congestive heart failure, acute kidney injury. Continue ultrafiltr ation dialysis. 7. Mineral bone disorder. Monitor calcium and phosphorus levels. 8. Hyponatremia. Continue to monitor. 9. Atrial fibrillation, rate controlled. Continue medical management. 10. Dysphagia, . Continue tube feeding. 11. Decubitus wound. Continue wound care. 12. Gastrointestinal and deep venous thrombosis prophylaxis. Please note I spent over 30 minutes of critical care time with this patient. Dictated By: PHILIPPE WILSON/NORM Conf#: [id number] DID#: [id number]
[2017-10-04] MEDS: HYDROGEN PEROXIDE 118 ML TOP SCH ×2 (09:00→21:12)
[2017-10-04] MEDS: DIGOXIN 0.125 MG TAB GTB SCH (09:00)
[2017-10-04] MEDS: COLLAGENASE 30 GM TUBE TOP SCH (09:00)
[2017-10-04] MEDS: BRIMONIDINE 0.1% 5 ML OPH BOTH EYES SCH ×2 (09:00)
[2017-10-04] MEDS: MIDODRINE 5 MG TAB GTB SCH ×3 (10:00→16:47)
[2017-10-04] MEDS: FERROUS SULFATE 60 MG/ML 5ML CUP GTB SCH (10:33)
[2017-10-04] MEDS: MULTIVITAMINS/MINERALS TAB GTB SCH (10:37)
[2017-10-04] MEDS: DOCUSATE SODIUM 10 MG/ML (10ML CUP) GTB SCH ×2 (10:37→20:54)
[2017-10-04] MEDS: FOLIC ACID 1 MG TAB GTB SCH (10:38)
[2017-10-04] MEDS: ASCORBIC ACID 500 MG TAB GTB SCH (10:38)
[2017-10-04] MEDS: CHOLECALCIFEROL 2,000 UNIT CAP GTB SCH (10:38)
[2017-10-04] MEDS: LACTOBACILLUS RHAMNOSUS CAP GTB SCH ×2 (10:38→20:53)
[2017-10-04] MEDS: HEPARIN 5,000 UNIT/0.5 ML VIAL SC SCH ×2 (10:40→21:00)
--- NOTE | 2017-10-04 11:18 | CONS ---
Date/Time of Note Date/Time of Note DATE: 10/04/17 TIME: :16 Consult Date/Type/Reason Admit Date/Time Sep 27, 2017 at 21:00 Initial Consult Date 09/28/17 Type of Consultation: Pulmonary Ordering Provider: PHILIPPE JUARES DO Subjective Remains on mechanical ventilation vasopressor dependent. Objective Vital Signs Date Time Temp Pulse Resp B/P Pulse Ox O2 Delivery O2 Flow Rate FiO2 10/04/17 09:10 80 22 100 30 10/04/17 06:00 97/46 10/04/17 05:00 Mechanical Ventilator 10/04/17 04:00 98.6 Intake and Output 10/03/17 10/03/17 10/04/17 15:00 23:00 07:00 Intake Total 692.44 ml 651.85 ml 471.84 ml Balance 692.44 ml 651.85 ml 471.84 ml Exam PHYSICAL EXAMINATION GENERAL: Elderly gentleman, on mechanical ventilation via tracheostomy VITAL SIGNS: see below. HEENT: Pupils equal, round, and reactive to light. Tracheostomy site clean and intact. CARDIAC: S1, S2, 2/6 systolic ejection murmur CHEST: Diminished air entry bilaterally. ABDOMEN: Mildly distended. Bowel sounds present no guarding or rebound EXTREMITIES: No cyanosis, clubbing edema +1 NEUROLOGIC: Unable to assess Results/Medications Result Diagram: 10/04/170 10/04/17 0420 Results 24 hrs Laboratory Tests Test 10/03/17 11:27 10/03/17 15:01 10/03/17 18:09 10/03/17 20:38 Bedside Glucose 139 128 145 120 Test 10/04/17 02:40 10/04/17 04:20 10/04/17 04:52 10/04/17 10:37 Bedside Glucose 112 122 146 White Blood Count 11.0 H Red Blood Count 2.98 L Hemoglobin 9.3 L Hematocrit 28.5 L Mean Corpuscular Volume 95.6 Mean Corpuscular Hemoglobin 31.2 Mean Corpuscular Hemoglobin Concent 32.6 Red Cell Distribution Width 19.1 H Platelet Count 117 L Mean Platelet Volume 11.8 H Neutrophils % 77.3 H Lymphocytes % 8.3 L Monocytes % 6.6 Eosinophils % 6.7 Basophils % 0.4 Nucleated Red Blood Cells % 0.0 Neutrophils # 8.5 H Lymphocytes # 0.9 Monocytes # 0.7 Eosinophils # 0.7 H Basophils # 0.0 Nucleated Red Blood Cells # 0.0 Sodium Level 132 L Potassium Level 4.5 Chloride Level 101 Carbon Dioxide Level 24 Anion Gap 12 Blood Urea Nitrogen 44 H Creatinine 2.10 H Glucose Level 95 Calcium Level 8.7 Phosphorus Level 3.7 Magnesium Level 2.4 Medications Current Medications Hydromorphone HCl (Dilaudid) 0.5 mg Q4H PRN IV PAIN Last administered on 17:00; Admin Dose 0.5 MG; Start 09/27/17 at 23:00 Midodrine (Proamatine) 10 mg TID@,, GTB Last administered on 10/04/17 10:00; Admin Dose 10 MG; Start 09/28/17 at 09:00 Ascorbic Acid (Vitamin C) 500 mg DAILY GTB Last administered on 10/04/17 10: 38; Admin Dose 500 MG; Start 09/28/17 at 09:00 Cholecalciferol (Vitamin D) 2,000 unit DAILY GTB Last administered on 10:38; Admin Dose 2,000 UNIT; Start 09/28/17 at 09:00 Digoxin (Digoxin) 0.125 mg DAILY GTB Last administered on 10/03/17 11:10; Admin Dose 0.125 MG; Start 09/28/17 at 09:00 Ferrous Sulfate (Feosol Liquid Cup) 300 mg DAILY GTB Last administered on 10/04 10:33; Admin Dose 300 MG; Start 09/28/17 at 09:00 Fluconazole (Diflucan) 100 mg DAILY GTB Last administered on 10/03/17 11:09; Admin Dose 100 MG; Start 09/28/17 at 09:00 Folic Acid (Folic Acid) 1 mg DAILY GTB Last administered on 10/04/17 10:38; Admin Dose 1 MG; Start 09/28/17 at 09:00 Acetaminophen/ Hydrocodone Bitart ([place] (5/325)) 1 tab DAILY GTB Last administered on 09/30/17 09:34; Admin Dose 1 TAB; Start 09/28/17 at 09:00; Status Future Hold Lactobacillus Acidophilus/ Rhamnosus (Culturelle) 1 cap BID GTB Last administered on 10/04/17 10:38; Admin Dose 1 CAP; Start 09/28/17 at 09:00 Sertraline HCl (Zoloft) 25 mg QHS GTB Last administered on 10/03/17 20:39; Admin Dose 25 MG; Start 09/28/17 at 21:00 Tramadol HCl (Ultram) 50 mg DAILY PRN GTB FOR WOUND CARE; Start 09/28/17 at 08 :00; Status Future Hold Tramadol HCl (Ultram) 50 mg Q8 GTB Last administered on 10/02/17 23:25; Admin Dose 50 MG; Start 09/28/17 at 14:00 Zolpidem Tartrate (Ambien) 5 mg QHS PRN GTB INSOMNIA; Start 09/28/17 at 08:00 Diagnostic Test (Pha) 1 ea 1 ea 02 XX Last administered on 09/29/17 01:05; Admin Dose 1 EA; Start 09/29/17 at 02:00 Meropenem/Sodium Chloride 50 ml @ 100 mls/hr Q12 IVPB Last administered on 20:41; Admin Dose 100 MLS/HR; Start 09/28/17 at 09:00 Colistimethate Sodium 75 mg/ Sodium Chloride 100 ml @ 200 mls/hr Q24H IVPB Last administered on 10/03/17 14:58; Admin Dose 200 MLS/HR; Start 09/28/17 at 14:45 Daptomycin 280 mg/ Sodium Chloride 100 ml @ 200 mls/hr Q48H IVPB Last administered on 10/02/17 16:59; Admin Dose 200 MLS/HR; Start 09/30/17 at 17: 00 Dextrose/Sodium Chloride (D5-NS) 1,000 ml @ 20 mls/hr Q24H IV Last administered on 10/03/17 20:39; Admin Dose 20 MLS/HR; Start 09/28/17 at 19:00 Insulin Aspart (Novolog Insulin Pen) NOVOLOG *MILD* ALGORITHM Q4 SC Last administered on 10/04/17 10:52; Admin Dose 1 UNIT; Start 09/29/17 at 09:00 Collagenase (Santyl) 1 applic DAILY TOP Last administered on 10/03/17 09:00; Admin Dose 1 APPLIC; Start 09/29/17 at 12:00 Acyclovir 400 mg 400 mg TID PO Last administered on 10/03/17 20:39; Admin Dose 400 MG; Start 09/29/17 at 21:00 Phenylephrine HCl/ Dextrose (Erwin-Syneph/D5W) 500 ml @ 37.5 mls/hr TITRATE IV Last administered on 09/30/17 15:01; Admin Dose 120 MLS/HR; Start 09/29/17 at 18:00 Docusate Sodium (Colace Liquid Cup) 100 mg BID GTB Last administered on 10:37; Admin Dose 100 MG; Start 09/30/17 at 21:00 Multivitamins/ Minerals (Theragran-M) 1 tab DAILY GTB Last administered on 10:37; Admin Dose 1 TAB; Start 09/30/17 at 10:00 Lansoprazole (Prevacid) 30 mg DAILY@06 GTB Last administered on 10/04/17 05: 56; Admin Dose 30 MG; Start 09/30/17 at 12:15 Hydrogen Peroxide (Hydrogen Peroxide) 1 applic BID TOP Last administered on 09:00; Admin Dose 1 APPLIC; Start 09/30/17 at 21:00 Heparin Sodium (Porcine) (Heparin (5000 Units/0.5 ml)) 5,000 unit BID SC Last administered on 10/04/17 10:40; Admin Dose 5,000 UNIT; Start 10/01/17 at 21: 00 Brimonidine Tartrate 1 drop 1 drop BID BOTH EYES Last administered on 09:00; Admin Dose 1 DROP; Start 10/03/17 at 21:00 Norepinephrine/ Dextrose (Levophed/D5W) 500 ml @ 1.87 mls/hr TITRATE IV Last administered on 10/04/17 05:58; Admin Dose 13.12 MLS/HR; Start 10/03/17 at 16 :30 Assessment/Plan Chief Complaint/Hosp Course Assessment 1. Patient admitted for repair of right femoral artery pseudoaneurysm status post repair. 2. Septic shock on mechanical ventilation. Possible component of adrenal insufficiency. 3. Dysphagia with G-tube 4. End-stage renal failure on hemodialysis 5. Idiopathic pulmonary fibrosis. Chronic respiratory failure on mechanical ventilation 6. Encephalopathy possible toxic metabolic. CT head demonstrates no acute intracranial pathology. Plan 1. Continue mechanical ventilation 2. Continue antibiotics, trial of hydrocortisone. 3. Titrate vasopressors to keep map greater than 65 4. Would consider not removing fluid during hemodialysis as patient remains vasopressor dependent Family discussion regarding goals of care is overall prognosis extremely poor consider palliative care approach. Problems: ANGELINA TRUJILLO MD, [facility] Oct 04, 2017 11:18
[2017-10-04] MEDS: MEROPENEM 500MG/50 ML (PMX) 50 ML IVPB SCH ×2 (12:00→20:54)
[2017-10-04] MEDS: FLUCONAZOLE 100 MG TAB GTB SCH (12:40)
[2017-10-04] MEDS: ACYCLOVIR 400 MG TAB PO SCH ×3 (12:41→20:53)
--- NOTE | 2017-10-04 13:07 | CONS ---
Date/Time of Note Date/Time of Note DATE: 10/04/17 TIME: 13:06 Consult Date/Type/Reason Admit Date/Time Sep 27, 2017 at 21:00 Initial Consult Date 09/28/17 Type of Consultation: id Ordering Provider: PHILIPPE JUARES DO Objective Vital Signs Date Time Temp Pulse Resp B/P Pulse Ox O2 Delivery O2 Flow Rate FiO2 10/04/17 12:47 81 26 100 30 10/04/17 11:30 105/57 Mechanical Ventilator 10/04/17 08:00 96.2 Intake and Output 10/03/17 10/03/17 10/04/17 14:59 22:59 06:59 Intake Total 652.18 ml 688.99 ml 504.96 ml Balance 652.18 ml 688.99 ml 504.96 ml Results/Medications Result Diagram: 10/04/17 0420 10/04/17 0420 Results 24 hrs Laboratory Tests Test 10/03/17 15:01 10/03/17 18:09 10/03/17 20:38 10/04/17 02:40 Bedside Glucose 128 145 120 112 Test 10/04/17 04:20 10/04/17 04:52 10/04/17 10:37 White Blood Count 11.0 H Red Blood Count 2.98 L Hemoglobin 9.3 L Hematocrit 28.5 L Mean Corpuscular Volume 95.6 Mean Corpuscular Hemoglobin 31.2 Mean Corpuscular Hemoglobin Concent 32.6 Red Cell Distribution Width 19.1 H Platelet Count 117 L Mean Platelet Volume 11.8 H Neutrophils % 77.3 H Lymphocytes % 8.3 L Monocytes % 6.6 Eosinophils % 6.7 Basophils % 0.4 Nucleated Red Blood Cells % 0.0 Neutrophils # 8.5 H Lymphocytes # 0.9 Monocytes # 0.7 Eosinophils # 0.7 H Basophils # 0.0 Nucleated Red Blood Cells # 0.0 Sodium Level 132 L Potassium Level 4.5 Chloride Level 101 Carbon Dioxide Level 24 Anion Gap 12 Blood Urea Nitrogen 44 H Creatinine 2.10 H Glucose Level 95 Calcium Level 8.7 Phosphorus Level 3.7 Magnesium Level 2.4 Bedside Glucose 122 146 Medications Current Medications Hydromorphone HCl (Dilaudid) 0.5 mg Q4H PRN IV PAIN Last administered on t 17:00; Admin Dose 0.5 MG; Start 09/27/17 at 23:00 Midodrine (Proamatine) 10 mg TID@ GTB Last administered on 10/04/17 10:00; Admin Dose 10 MG; Start 09/28/17 at 09:00 Ascorbic Acid (Vitamin C) 500 mg DAILY GTB Last administered on 10/04/17 10: 38; Admin Dose 500 MG; Start 09/28/17 at 09:00 Cholecalciferol (Vitamin D) 2,000 unit DAILY GTB Last administered on 10:38; Admin Dose 2,000 UNIT; Start 09/28/17 at 09:00 Digoxin (Digoxin) 0.125 mg DAILY GTB Last administered on 10/04/17 09:00; Admin Dose 0.125 MG; Start 09/28/17 at 09:00 Ferrous Sulfate (Feosol Liquid Cup) 300 mg DAILY GTB Last administered on 10/04 10:33; Admin Dose 300 MG; Start 09/28/17 at 09:00 Fluconazole (Diflucan) 100 mg DAILY GTB Last administered on 10/04/17 12:40; Admin Dose 100 MG; Start 09/28/17 at 09:00 Folic Acid (Folic Acid) 1 mg DAILY GTB Last administered on 10/04/17 10:38; Admin Dose 1 MG; Start 09/28/17 at 09:00 Acetaminophen/ Hydrocodone Bitart ([place] (5/325)) 1 tab DAILY GTB Last administered on 09/30/17 09:34; Admin Dose 1 TAB; Start 09/28/17 at 09:00; Status Future Hold Lactobacillus Acidophilus/ Rhamnosus (Culturelle) 1 cap BID GTB Last administered on 10/04/17 10:38; Admin Dose 1 CAP; Start 09/28/17 at 09:00 Sertraline HCl (Zoloft) 25 mg QHS GTB Last administered on 10/03/17 20:39; Admin Dose 25 MG; Start 09/28/17 at 21:00 Tramadol HCl (Ultram) 50 mg DAILY PRN GTB FOR WOUND CARE; Start 09/28/17 at 08 :00; Status Future Hold Tramadol HCl (Ultram) 50 mg Q8 GTB Last administered on 11/14/17at 23:25; Admin Dose 50 MG; Start 09/28/17 at 14:00 Zolpidem Tartrate (Ambien) 5 mg QHS PRN GTB INSOMNIA; Start 09/28/17 at 08:00 Diagnostic Test (Pha) 1 ea 1 ea 02 XX Last administered on 09/29/17 01:05; Admin Dose 1 EA; Start 09/29/17 at 02:00 Meropenem/Sodium Chloride 50 ml @ 100 mls/hr Q12 IVPB Last administered on 12:00; Admin Dose 100 MLS/HR; Start 09/28/17 at 09:00 Colistimethate Sodium 75 mg/ Sodium Chloride 100 ml @ 200 mls/hr Q24H IVPB Last administered on 10/03/17 14:58; Admin Dose 200 MLS/HR; Start 09/28/17 at 14:45 Daptomycin 280 mg/ Sodium Chloride 100 ml @ 200 mls/hr Q48H IVPB Last administered on 10/02/17 16:59; Admin Dose 200 MLS/HR; Start 09/30/17 at 17: 00 Dextrose/Sodium Chloride (D5-NS) 1,000 ml @ 20 mls/hr Q24H IV Last administered on 10/03/17 20:39; Admin Dose 20 MLS/HR; Start 09/28/17 at 19:00 Insulin Aspart (Novolog Insulin Pen) NOVOLOG *MILD* ALGORITHM Q4 SC Last administered on 10/04/17 10:52; Admin Dose 1 UNIT; Start 09/29/17 at 09:00 Collagenase (Santyl) 1 applic DAILY TOP Last administered on 10/03/17 09:00; Admin Dose 1 APPLIC; Start 09/29/17 at 12:00 Acyclovir 400 mg 400 mg TID PO Last administered on 10/04/17 12:41; Admin Dose 400 MG; Start 09/29/17 at 21:00 Phenylephrine HCl/ Dextrose (Erwin-Syneph/D5W) 500 ml @ 37.5 mls/hr TITRATE IV Last administered on 09/30/17 15:01; Admin Dose 120 MLS/HR; Start 09/29/17 at 18:00 Docusate Sodium (Colace Liquid Cup) 100 mg BID GTB Last administered on 10:37; Admin Dose 100 MG; Start 09/30/17 at 21:00 Multivitamins/ Minerals (Theragran-M) 1 tab DAILY GTB Last administered on 10:37; Admin Dose 1 TAB; Start 09/30/17 at 10:00 Lansoprazole (Prevacid) 30 mg DAILY@06 GTB Last administered on 10/04/17 05: 56; Admin Dose 30 MG; Start 09/30/17 at 12:15 Hydrogen Peroxide (Hydrogen Peroxide) 1 applic BID TOP Last administered on 09:00; Admin Dose 1 APPLIC; Start 09/30/17 at 21:00 Heparin Sodium (Porcine) (Heparin (5000 Units/0.5 ml)) 5,000 unit BID SC Last administered on 10/04/17 10:40; Admin Dose 5,000 UNIT; Start 10/01/17 at 21: 00 Brimonidine Tartrate 1 drop 1 drop BID BOTH EYES Last administered on 09:00; Admin Dose 1 DROP; Start 10/03/17 at 21:00 Norepinephrine/ Dextrose (Levophed/D5W) 500 ml @ 1.87 mls/hr TITRATE IV Last administered on 10/04/17 05:58; Admin Dose 13.12 MLS/HR; Start 10/03/17 at 16 :30 Hydrocortisone (Solu-Cortef) 100 mg Q8 IV ; Start 10/04/17 at 14:00 Assessment/Plan Chief Complaint/Hosp Course SUBJECTIVE: No acute changes, lethargic, in HD, on Levophed gtt, in no distress. MICROBIOLOGY: Blood cultures remain negative. INDWELLINGS: Trach, PEG, right subclavian permacath, right upper extremity midline, right thigh EDY. ANTIMICROBIALS: 1. Daptomycin. 2. Colistin. 3. Fluconazole. 4. Acyclovir MICROBIOLOGY: Wound cultures in [facility] grew Acinetobacter baumannii and VRE, as well as Klebsiella pneumoniae, ESBL and pseudomonas. Urine culture grew Dulce glabrata. PHYSICAL EXAMINATION: GENERAL: This is a chronically ill-appearing, fragile, debilitated, elderly man who is lethargic, in no distress. HEENT: Head atraumatic, normocephalic. Sclerae anicteric. Buccal mucosa dry. NECK: Supple. Tracheostomy present. CHEST: Rise symmetrical. Breath sounds diminished to bases. HEART: S1, S2. ABDOMEN: Distended, bowel tones hypoactive. EXTREMITIES: With bilateral edema. SKIN: With multiple wounds. Patient also has right upper back rash, possibly herpetic. ASSESSMENT: 1. Septic shock. 2. Status post right femoral pseudoaneurysm repair. 3. Multiple chronic wounds with sacral osteomyelitis, status post debridement. 4. G-tube site cellulitis. 5. Nontoxic megacolon. 6. Urinary tract infection. 7. Right upper back rash, possible shingles. 8. Deep venous thrombosis, status post inferior vena cava filter placement. 9. Anemia. 10. Atrial fibrillation. 11. Failure to thrive. 12. End stage renal disease, hemodialysis dependent. 13. Acute encephalopathy==> CT brain neg PLAN: The patient remains unchanged, on Levophed gtt and antibiotics. Continue present care, follow recommendations of specialists. [facility] staff Problems: CLAYTON SHANKAR NP Oct 04, 2017 13:07
--- NOTE | 2017-10-04 13:11 | PN ---
Date/Time of Note Date/Time of Note DATE: 10/04/17 TIME: 13:04 Assessment/Plan Lines/Catheters IV Catheter Type (from [facility]): Perma Cath [place] in Place (from [facility]): No Assessment/Plan Chief Complaint/Hosp Course 1. Hypotension, sepsis -supportive/pressor -judicious fluids 2. Sacral & left trochanter pressure ulcers: -debridement prn -local care -frequent turning and off-loading -low air loss mattress -vitamin c -short term zinc -optimize nutrition 3. 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 End-stage renal disease -HD per renal -avoid/limit nephrotoxic meds -judicious fluids -renally dose meds 5. Anemia: no acute bleed noted -closely monitor surgical site -transfuse as needed 6. Atrial fibrillation -rate control -cards optimization 7. Dysphagia with feeding tube: on tube feeds -cont tf with aspiration precautions 8. Leukocytosis: afebrile -monitor -further workup if persistent 9. Thrombocytosis -supportive 10. Hypoalbuminemia: likely multifactorial -optimize nutrition -medical management of inflammation/infection 11. Electrolyte imbalance -optimize lytes and monitor 12. Ventilator dependent respiratory failure -per pulm -pulm toilet -respiratory treatments Thank you. Patient seen and examined in collaboration with Dr. Ho Lua. Problems: Subjective 24 Hr Interval Summary Continues in ICU care and pressor. S/p HD today. Leukocytosis improving. No fevers, congested cough, v/d, change in tele rhythm. Exam/Review of Systems Vital Signs Vitals Vital Signs Date Time Temp Pulse Resp B/P Pulse Ox O2 Delivery O2 Flow Rate FiO2 10/04/17 12:47 81 26 100 30 10/04/17 11:30 105/57 Mechanical Ventilator 10/04/17 08:00 96.2 Intake and Output 10/03/17 10/03/17 10/04/17 15:00 23:00 07:00 Intake Total 692.44 ml 651.85 ml 471.84 ml Balance 692.44 ml 651.85 ml 471.84 ml Exam Free Text/Dictation Constitutional: Not following commands, ventilated Psych: lethargic Head: atraumatic, normocephalic Eyes: nl lids, nl sclera ENMT: mucosa pink and moist, nl nasal mucosa & septum Neck: non-tender, other (trach-vent), supple Respiratory: diminished breath sounds, No labored breathing Cardiovascular: irregular rhythm, other (afib) Gastrointestinal: non-tender, other (peg), soft Genitourinary - Male: nl penis, nl scrotum Musculoskeletal: nl extremities to inspection, swelling improved Extremities: cap refill 2 s Neurological: No nl speech, No nl strength (gen weakness) Skin: Femoral incision with dressing, sacral and left troch pressure ulcers Lymph: No nl lymph nodes Results Result Diagram: 10/04/1741910/04/17419 MART AMEZQUITA NP Oct 04, 2017 13:10
[2017-10-04] MEDS: HYDROCORTISONE 100 MG INJ IV SCH ×2 (14:08→21:59)
[2017-10-04] MEDS: COLISTIMETHATE 75 MG in SOD CHLORIDE 0.9% 100 ML IVPB SCH (15:00)
[2017-10-04] MEDS: DAPTOMYCIN 280 MG in SOD CHLORIDE 0.9% 100 ML IVPB SCH (16:47)
[2017-10-04] MEDS: DEXTROSE 5%-0.9% NACL 1,000 ML IV SCH (19:14)
[2017-10-04] MEDS: SERTRALINE 50 MG TAB GTB SCH (20:54)
[2017-10-05] VITALS (100 sets, daily range): BP systolic 93–122; BP diastolic 39–63; PULSE 59–112; RESP 12–32
[2017-10-05] MEDS: INSULIN ASPART [NOVOLOG] 3 ML PEN SC SCH ×6 (01:00→20:19)
[2017-10-05] MEDS: ACCU-CHEK XX SCH (02:00)
[2017-10-05] MEDS: traMADol 50 MG TAB GTB SCH ×3 (06:00→22:00)
[2017-10-05 06:41] LABS: ABNORMAL IP MESSAGE 1; BASOPHILS % 0.1 % (0.0-2.0); HEMATOCRIT 29.7 % (42.0-52.0); HEMOGLOBIN 9.4 g/dl (14.0-18.0); LYMPHOCYTES # 0.5 10^3/ul (0.8-2.9); LYMPHOCYTES % 5.6 % (15.0-51.0); MEAN CORPUSCULAR HEMOGLOBIN 30.7 pg (29.0-33.0); MEAN CORPUSCULAR HGB CONC 31.6 g/dl (32.0-37.0); MEAN CORPUSCULAR VOLUME 97.1 fl (82.0-101.0); MEAN PLATELET VOLUME 10.9 fl (7.4-10.4); MONOCYTE # 0.3 10^3/ul (0.3-0.9); MONOCYTES % 2.8 % (0.0-11.0); NEUTROPHIL # 8.3 10^3/ul (1.6-7.5); NEUTROPHILS % 90.6 % (39.0-77.0); POSITIVE DIFF @See below; RED BLOOD COUNT 3.06 10^6/ul (4.70-6.10); RED CELL DISTRIBUTION WIDTH 19.2 % (11.5-14.5); WHITE BLOOD COUNT 9.2 10^3/ul (4.8-10.8)
[2017-10-05 06:46] LABS: PLATELET COUNT 92 10^3/UL (140-415)
[2017-10-05] MEDS: HYDROCORTISONE 100 MG INJ IV SCH ×2 (07:01→13:36)
[2017-10-05] MEDS: LANSOPRAZOLE 30 MG CAP GTB SCH (07:01)
[2017-10-05 07:13] LABS: CREATININE 1.94 mg/dl (0.61-1.24); MAGNESIUM 2.5 mg/dl (1.7-2.5); PHOSPHORUS 4.5 mg/dl (2.5-4.9); POTASSIUM 5.2 mmol/L (3.5-5.1)
--- NOTE | 2017-10-05 07:58 | CONS ---
Date/Time of Note Date/Time of Note DATE: 10/05/17 TIME: 07:56 Consult Date/Type/Reason Admit Date/Time Sep 27, 2017 at 21:00 Initial Consult Date 09/28/17 Type of Consultation: cardiology Ordering Provider: PHILIPPE JUARES DO Subjective Cardiology follow up note S: D/ W staff and rhythm was reviewed. pt remains in Afib. his HR is under good control but pt also with frequent PVC. he remains lethargic and novnerbal now still on vent in ICU pt is still on levophed drip O: General: Thin. s/p trach on vent. no acute distress HEENT: NC/AT. pupils are equal. round. NECK: s/p trach. . no stridor. CV: irregularly irregular. systolic murmur; no gallop or rubs. PULM: no wheezing . + rhonchi. GI: SOFT, NT, ND, no rebound or guarding vascular: R fem s/p surgery Extremity: increased B/L LE edema. no clubbing. neuro: lethargic Psych: calm and pleasant rectal: deferred : normal male Derm: With diffuse ecchymosis throughout the body. CXR reviewed. ECHO: 1. Normal left ventricular systolic function. Normal left ventricular cavity size. Moderate concentric left ventricular hypertrophy. Ejection fraction is visually estimated at 65 %. Abnormal Diastolic Function. 2. Aortic sclerosis without stenosis. Objective Vital Signs Date Time Temp Pulse Resp B/P Pulse Ox O2 Delivery O2 Flow Rate FiO2 10/05/17 07:25 74 12 98 30 10/05/17 06:15 103/44 10/05/17 04:00 97.4 Mechanical Ventilator Intake and Output 10/04/17 10/04/17 10/05/17 14:59 22:59 06:59 Intake Total 1189.36 ml 761.87 ml 490.0 ml Output Total 4500 ml 0 ml Balance -3310.64 ml 761.87 ml 490.0 ml Results/Medications Result Diagram: 10/05/17 0623 10/05/17 0623 Results 24 hrs Laboratory Tests Test 10/04/17 10:37 10/04/17 14:26 10/04/17 17:25 10/04/17 21:10 Bedside Glucose 146 158 134 125 Test 10/05/17 01:58 10/05/17 04:54 10/05/17 06:23 Bedside Glucose 130 137 White Blood Count 9.2 Red Blood Count 3.06 L Hemoglobin 9.4 L Hematocrit 29.7 L Mean Corpuscular Volume 97.1 Mean Corpuscular Hemoglobin 30.7 Mean Corpuscular Hemoglobin Concent 31.6 L Red Cell Distribution Width 19.2 H Platelet Count 92 #L Mean Platelet Volume 10.9 H Neutrophils % 90.6 H Lymphocytes % 5.6 L Monocytes % 2.8 Eosinophils % 0.0 Basophils % 0.1 Nucleated Red Blood Cells % 0.0 Neutrophils # 8.3 H Lymphocytes # 0.5 L Monocytes # 0.3 Eosinophils # 0.0 Basophils # 0.0 Nucleated Red Blood Cells # 0.0 Sodium Level 134 L Potassium Level 5.2 H Chloride Level 100 Carbon Dioxide Level 28 Anion Gap 11 Blood Urea Nitrogen 42 H Creatinine 1.94 H Glucose Level 112 Calcium Level 9.0 Phosphorus Level 4.5 Magnesium Level 2.5 Medications Current Medications Hydromorphone HCl (Dilaudid) 0.5 mg Q4H PRN IV PAIN Last administered on 17:00; Admin Dose 0.5 MG; Start 09/27/17 at 23:00 Midodrine (Proamatine) 10 mg TID@ GTB Last administered on 10/04/17 16:47; Admin Dose 10 MG; Start 09/28/17 at 09:00 Ascorbic Acid (Vitamin C) 500 mg DAILY GTB Last administered on 10/04/17 10: 38; Admin Dose 500 MG; Start 09/28/17 at 09:00 Cholecalciferol (Vitamin D) 2,000 unit DAILY GTB Last administered on 10:38; Admin Dose 2,000 UNIT; Start 09/28/17 at 09:00 Digoxin (Digoxin) 0.125 mg DAILY GTB Last administered on 10/04/17 09:00; Admin Dose 0.125 MG; Start 09/28/17 at 09:00 Ferrous Sulfate (Feosol Liquid Cup) 300 mg DAILY GTB Last administered on 10/04 10:33; Admin Dose 300 MG; Start 09/28/17 at 09:00 Fluconazole (Diflucan) 100 mg DAILY GTB Last administered on 10/04/17 12:40; Admin Dose 100 MG; Start 09/28/17 at 09:00 Folic Acid (Folic Acid) 1 mg DAILY GTB Last administered on 10/04/17 10:38; Admin Dose 1 MG; Start 09/28/17 at 09:00 Acetaminophen/ Hydrocodone Bitart ([place] (5/325)) 1 tab DAILY GTB Last administered on 09/30/17 09:34; Admin Dose 1 TAB; Start 09/28/17 at 09:00; Status Future Hold Lactobacillus Acidophilus/ Rhamnosus (Culturelle) 1 cap BID GTB Last administered on 10/04/17 20:53; Admin Dose 1 CAP; Start 09/28/17 at 09:00 Sertraline HCl (Zoloft) 25 mg QHS GTB Last administered on 10/04/17 20:54; Admin Dose 25 MG; Start 09/28/17 at 21:00 Tramadol HCl (Ultram) 50 mg DAILY PRN GTB FOR WOUND CARE; Start 09/28/17 at 08 :00; Status Future Hold Tramadol HCl (Ultram) 50 mg Q8 GTB Last administered on 10/04/17 14:28; Admin Dose 50 MG; Start 09/28/17 at 14:00 Zolpidem Tartrate (Ambien) 5 mg QHS PRN GTB INSOMNIA; Start 09/28/17 at 08:00 Diagnostic Test (Pha) 1 ea 1 ea 02 XX Last administered on 09/29/17 01:05; Admin Dose 1 EA; Start 09/29/17 at 02:00 Meropenem/Sodium Chloride 50 ml @ 100 mls/hr Q12 IVPB Last administered on 20:54; Admin Dose 100 MLS/HR; Start 09/28/17 at 09:00 Colistimethate Sodium 75 mg/ Sodium Chloride 100 ml @ 200 mls/hr Q24H IVPB Last administered on 10/04/17 15:00; Admin Dose 200 MLS/HR; Start 09/28/17 at 14:45 Daptomycin 280 mg/ Sodium Chloride 100 ml @ 200 mls/hr Q48H IVPB Last administered on 10/04/17 16:47; Admin Dose 200 MLS/HR; Start 09/30/17 at 17: 00 Dextrose/Sodium Chloride (D5-NS) 1,000 ml @ 20 mls/hr Q24H IV Last administered on 10/04/17 19:14; Admin Dose 20 MLS/HR; Start 09/28/17 at 19:00 Insulin Aspart (Novolog Insulin Pen) NOVOLOG *MILD* ALGORITHM Q4 SC Last administered on 10/04/17 14:29; Admin Dose 1 UNIT; Start 09/29/17 at 09:00 Collagenase (Santyl) 1 applic DAILY TOP Last administered on 10/03/17 09:00; Admin Dose 1 APPLIC; Start 09/29/17 at 12:00 Acyclovir 400 mg 400 mg TID PO Last administered on 10/04/17 20:53; Admin Dose 400 MG; Start 09/29/17 at 21:00 Phenylephrine HCl/ Dextrose (Erwin-Syneph/D5W) 500 ml @ 37.5 mls/hr TITRATE IV Last administered on 09/30/17 15:01; Admin Dose 120 MLS/HR; Start 09/29/17 at 18:00 Docusate Sodium (Colace Liquid Cup) 100 mg BID GTB Last administered on 20:54; Admin Dose 100 MG; Start 09/30/17 at 21:00 Multivitamins/ Minerals (Theragran-M) 1 tab DAILY GTB Last administered on 10:37; Admin Dose 1 TAB; Start 09/30/17 at 10:00 Lansoprazole (Prevacid) 30 mg DAILY@06 GTB Last administered on 10/05/17 07: 01; Admin Dose 30 MG; Start 09/30/17 at 12:15 Hydrogen Peroxide (Hydrogen Peroxide) 1 applic BID TOP Last administered on 21:12; Admin Dose 1 APPLIC; Start 09/30/17 at 21:00 Heparin Sodium (Porcine) (Heparin (5000 Units/0.5 ml)) 5,000 unit BID SC Last administered on 10/04/17 21:00; Admin Dose 5,000 UNIT; Start 10/01/17 at 21: 00 Brimonidine Tartrate 1 drop 1 drop BID BOTH EYES Last administered on 00:00; Admin Dose 1 DROP; Start 10/03/17 at 21:00 Norepinephrine/ Dextrose (Levophed/D5W) 500 ml @ 1.87 mls/hr TITRATE IV Last administered on 10/04/17 05:58; Admin Dose 13.12 MLS/HR; Start 10/03/17 at 16 :30 Hydrocortisone (Solu-Cortef) 100 mg Q8 IV Last administered on 10/05/17 07:01 ; Admin Dose 100 MG; Start 10/04/17 at 14:00 Assessment/Plan Chief Complaint/Hosp Course 1. SHOCK: septic 2. Afib: persistent/ chronic now. 3. hypoxemic resp failure: s/p trach vent dependent now. 4. hx anemia and GI bleed: off of any anticoagulation 5. 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 s/p multiple infections 8. dysphagia: s/p PEG 9. encephalopathy: 10. fluid overload/ CHF/ anasarca: ACUTE on chronic due to fluid overload and diastolic failure. 11. Ventricular arrhythmia and PVC Recommendations: I will continue with the pressors for now. WILL try to wean off . Vent support will be continued. Hemodialysis will be continued. Heart rate control Transfusion as needed will be given.. Patient currently off of full anticoagulation due to concern about history of severe anemia as well as GI bleed and OB positive stool. Head CT done 10/02/17 did not show any acute CVA prognosis is poor Continue with the ICU care. Thank you for his referral. I will continue to follow along with you. DIOR JEFFERSON MD [facility] Problems: DIOR JEFFERSON MD Oct 05, 2017 07:58
[2017-10-05] MEDS: BRIMONIDINE 0.1% 5 ML OPH BOTH EYES SCH ×2 (09:00→20:18)
[2017-10-05] MEDS: FERROUS SULFATE 60 MG/ML 5ML CUP GTB SCH (09:15)
[2017-10-05] MEDS: DOCUSATE SODIUM 10 MG/ML (10ML CUP) GTB SCH ×2 (09:15→20:19)
[2017-10-05] MEDS: ASCORBIC ACID 500 MG TAB GTB SCH (09:16)
[2017-10-05] MEDS: FOLIC ACID 1 MG TAB GTB SCH (09:16)
[2017-10-05] MEDS: MULTIVITAMINS/MINERALS TAB GTB SCH (09:16)
[2017-10-05] MEDS: CHOLECALCIFEROL 2,000 UNIT CAP GTB SCH (09:16)
[2017-10-05] MEDS: LACTOBACILLUS RHAMNOSUS CAP GTB SCH ×2 (09:16→20:18)
[2017-10-05] MEDS: HEPARIN 5,000 UNIT/0.5 ML VIAL SC SCH ×2 (09:17→20:22)
[2017-10-05] MEDS: HYDROGEN PEROXIDE 118 ML TOP SCH ×2 (09:20→20:20)
[2017-10-05] MEDS: COLLAGENASE 30 GM TUBE TOP SCH (09:20)
[2017-10-05] MEDS: MIDODRINE 5 MG TAB GTB SCH ×3 (09:29→18:08)
--- NOTE | 2017-10-05 09:32 | PN ---
DATE: 10/05/2017 SUBJECTIVE: The patient remains critically ill on pressor support. The patient remains lethargic, now retracts only to painful stimuli. No other acute events noted. OBJECTIVE: VITAL SIGNS: Blood pressure is 106/59, respirations 24, pulse 77, temperature 98.2. HEENT: Head is normocephalic. NECK: Supple. HEART: Regular rate. LUNGS: Show diminished breath sounds at the base. ABDOMEN: Soft, nontender to palpation. No rebound or guarding. EXTREMITIES: Positive for diffuse anasarca. DERMATOLOGIC: No rashes. MUSCULOSKELETAL: Positive wounds. NEUROLOGIC: The patient is obtunded. LABORATORY DATA: Shows sodium 134, potassium 5.2, BUN 42, creatinine 1.94. White count 9.2, hemogl obin 9.4, hematocrit 29.7, platelet count is 92. ASSESSMENT AND PLAN: 1. Septic shock, etiology is multifactorial secondary to pneumonia, underlying wounds. The patient remains on pressor support. Attempt to wean off if possible. Continue current antibiotic regimen and follow up with infectious disease. 2. Ventilator-dependent respiratory failure. Vent settings and ABG is reviewed. Continue to monit or. Follow up with pulmonary. 3. Right pseudoaneurysm, status post surgical repair. Continue local wound care. Follow up with v ascular surgery. 4. Acute encephalopathy. Etiology is likely due to toxic metabolic. The patient has not had any s ignificant improvement in mental status. CT scan was negative. We will place a neurology consult w rai Pérez for further evaluation. 5. Endstage renal disease. Plan for dialysis today for solute clearance and volume removal. 6. Volume overload secondary to congestive heart failure, acute kidney injury, capillary leak. Con tinue ultrafiltration with dialysis if patient remains hemodynamically stable. 7. Mineral bone disorder. Monitor calcium and phosphorus levels. 8. Hyperkalemia. We will dialyze patient with 2 potassium bath. 9. Hyponatremia. Continue dialysis on a 140 sodium bath. 10. Atrial fibrillation, rate controlled. Continue medical management. 11. Dysphagia, status post percutaneous endoscopic gastrostomy tube feeding. 12. Decubitus wound. Continue wound care. 13. Gastrointestinal and deep venous thrombosis prophylaxis. DISPOSITION: Please note I discussed the case in detail with the patient's son and patient's . The patient's still wishes FULL CODE despite me explaining to her his poor prognosis. Please note I spent over 30 minutes of critical care time with this patient. Dictated By: PHILIPPE WILSON/NORM Conf#: [id number] DID#: [id number]
--- NOTE | 2017-10-05 09:53 | CONS ---
Date/Time of Note Date/Time of Note DATE: 10/05/17 TIME: 09:52 Consult Date/Type/Reason Admit Date/Time Sep 27, 2017 at 21:00 Initial Consult Date 09/28/17 Type of Consultation: Pulmonary Ordering Provider: PHILIPPE JUARES DO Subjective No significant neurological changes. Decreased vasopressor requirements. Objective Vital Signs Date Time Temp Pulse Resp B/P Pulse Ox O2 Delivery O2 Flow Rate FiO2 10/05/17 08:34 30 10/05/17 08:00 98.2 77 24 106/59 98 Mechanical Ventilator Intake and Output 10/04/17 10/04/17 10/05/17 14:59 22:59 06:59 Intake Total 1189.36 ml 761.87 ml 490.0 ml Output Total 4500 ml 0 ml Balance -3310.64 ml 761.87 ml 490.0 ml Exam PHYSICAL EXAMINATION GENERAL: Elderly gentleman, on mechanical ventilation via tracheostomy VITAL SIGNS: see below. HEENT: Pupils equal, round, and reactive to light. Tracheostomy site clean and intact. CARDIAC: S1, S2, 2/6 systolic ejection murmur CHEST: Diminished air entry bilaterally. ABDOMEN: Mildly distended. Bowel sounds present no guarding or rebound EXTREMITIES: No cyanosis, clubbing edema +1 NEUROLOGIC: Unable to assess Results/Medications Result Diagram: 10/05/1762210/05/1723 Results 24 hrs Laboratory Tests Test 10/04/17 10:37 10/04/17 14:26 10/04/17 17:25 10/04/17 21:10 Bedside Glucose 146 158 134 125 Test 10/05/17 01:58 10/05/17 04:54 10/05/17 06:23 10/05/17 09:27 Bedside Glucose 130 137 138 White Blood Count 9.2 Red Blood Count 3.06 L Hemoglobin 9.4 L Hematocrit 29.7 L Mean Corpuscular Volume 97.1 Mean Corpuscular Hemoglobin 30.7 Mean Corpuscular Hemoglobin Concent 31.6 L Red Cell Distribution Width 19.2 H Platelet Count 92 #L Mean Platelet Volume 10.9 H Neutrophils % 90.6 H Lymphocytes % 5.6 L Monocytes % 2.8 Eosinophils % 0.0 Basophils % 0.1 Nucleated Red Blood Cells % 0.0 Neutrophils # 8.3 H Lymphocytes # 0.5 L Monocytes # 0.3 Eosinophils # 0.0 Basophils # 0.0 Nucleated Red Blood Cells # 0.0 Sodium Level 134 L Potassium Level 5.2 H Chloride Level 100 Carbon Dioxide Level 28 Anion Gap 11 Blood Urea Nitrogen 42 H Creatinine 1.94 H Glucose Level 112 Calcium Level 9.0 Phosphorus Level 4.5 Magnesium Level 2.5 Medications Current Medications Hydromorphone HCl (Dilaudid) 0.5 mg Q4H PRN IV PAIN Last administered on 17:00; Admin Dose 0.5 MG; Start 09/27/17 at 23:00 Midodrine (Proamatine) 10 mg TID@,, GTB Last administered on 10/05/17 09:29; Admin Dose 10 MG; Start 09/28/17 at 09:00 Ascorbic Acid (Vitamin C) 500 mg DAILY GTB Last administered on 10/05/17 09: 16; Admin Dose 500 MG; Start 09/28/17 at 09:00 Cholecalciferol (Vitamin D) 2,000 unit DAILY GTB Last administered on 09:16; Admin Dose 2,000 UNIT; Start 09/28/17 at 09:00 Digoxin (Digoxin) 0.125 mg DAILY GTB Last administered on 10/04/17 09:00; Admin Dose 0.125 MG; Start 09/28/17 at 09:00 Ferrous Sulfate (Feosol Liquid Cup) 300 mg DAILY GTB Last administered on 10/05 09:15; Admin Dose 300 MG; Start 09/28/17 at 09:00 Fluconazole (Diflucan) 100 mg DAILY GTB Last administered on 10/04/17 12:40; Admin Dose 100 MG; Start 09/28/17 at 09:00 Folic Acid (Folic Acid) 1 mg DAILY GTB Last administered on 10/05/17 09:16; Admin Dose 1 MG; Start 09/28/17 at 09:00 Acetaminophen/ Hydrocodone Bitart ([place] (5/325)) 1 tab DAILY GTB Last administered on 09/30/17 09:34; Admin Dose 1 TAB; Start 09/28/17 at 09:00; Status Future Hold Lactobacillus Acidophilus/ Rhamnosus (Culturelle) 1 cap BID GTB Last administered on 10/05/17 09:16; Admin Dose 1 CAP; Start 09/28/17 at 09:00 Sertraline HCl (Zoloft) 25 mg QHS GTB Last administered on 10/04/17 20:54; Admin Dose 25 MG; Start 09/28/17 at 21:00 Tramadol HCl (Ultram) 50 mg DAILY PRN GTB FOR WOUND CARE; Start 09/28/17 at 08 :00; Status Future Hold Tramadol HCl (Ultram) 50 mg Q8 GTB Last administered on 10/04/17 14:28; Admin Dose 50 MG; Start 09/28/17 at 14:00 Zolpidem Tartrate (Ambien) 5 mg QHS PRN GTB INSOMNIA; Start 09/28/17 at 08:00 Diagnostic Test (Pha) 1 ea 1 ea 02 XX Last administered on 09/29/17 01:05; Admin Dose 1 EA; Start 09/29/17 at 02:00 Meropenem/Sodium Chloride 50 ml @ 100 mls/hr Q12 IVPB Last administered on 20:54; Admin Dose 100 MLS/HR; Start 09/28/17 at 09:00 Colistimethate Sodium 75 mg/ Sodium Chloride 100 ml @ 200 mls/hr Q24H IVPB Last administered on 10/04/17 15:00; Admin Dose 200 MLS/HR; Start 09/28/17 at 14:45 Daptomycin 280 mg/ Sodium Chloride 100 ml @ 200 mls/hr Q48H IVPB Last administered on 10/04/17 16:47; Admin Dose 200 MLS/HR; Start 09/30/17 at 17: 00 Dextrose/Sodium Chloride (D5-NS) 1,000 ml @ 20 mls/hr Q24H IV Last administered on 10/04/17 19:14; Admin Dose 20 MLS/HR; Start 09/28/17 at 19:00 Insulin Aspart (Novolog Insulin Pen) NOVOLOG *MILD* ALGORITHM Q4 SC Last administered on 10/04/17 14:29; Admin Dose 1 UNIT; Start 09/29/17 at 09:00 Collagenase (Santyl) 1 applic DAILY TOP Last administered on 10/05/17 09:20; Admin Dose 1 APPLIC; Start 09/29/17 at 12:00 Acyclovir 400 mg 400 mg TID PO Last administered on 10/04/17 20:53; Admin Dose 400 MG; Start 09/29/17 at 21:00 Phenylephrine HCl/ Dextrose (Erwin-Syneph/D5W) 500 ml @ 37.5 mls/hr TITRATE IV Last administered on 09/30/17 15:01; Admin Dose 120 MLS/HR; Start 09/29/17 at 18:00 Docusate Sodium (Colace Liquid Cup) 100 mg BID GTB Last administered on 09:15; Admin Dose 100 MG; Start 09/30/17 at 21:00 Multivitamins/ Minerals (Theragran-M) 1 tab DAILY GTB Last administered on 09:16; Admin Dose 1 TAB; Start 09/30/17 at 10:00 Lansoprazole (Prevacid) 30 mg DAILY@06 GTB Last administered on 10/05/17 07: 01; Admin Dose 30 MG; Start 09/30/17 at 12:15 Hydrogen Peroxide (Hydrogen Peroxide) 1 applic BID TOP Last administered on 09:20; Admin Dose 1 APPLIC; Start 09/30/17 at 21:00 Heparin Sodium (Porcine) (Heparin (5000 Units/0.5 ml)) 5,000 unit BID SC Last administered on 10/05/17 09:17; Admin Dose 5,000 UNIT; Start 10/01/17 at 21: 00 Brimonidine Tartrate 1 drop 1 drop BID BOTH EYES Last administered on 00:00; Admin Dose 1 DROP; Start 10/03/17 at 21:00 Norepinephrine/ Dextrose (Levophed/D5W) 500 ml @ 1.87 mls/hr TITRATE IV Last administered on 10/04/17 05:58; Admin Dose 13.12 MLS/HR; Start 10/03/17 at 16 :30 Hydrocortisone (Solu-Cortef) 100 mg Q8 IV Last administered on 10/05/17 07:01 ; Admin Dose 100 MG; Start 10/04/17 at 14:00 Silver Sulfadiazine (Thermazene 1% 25 Gm) 1 applic DAILY TOP ; Start 10/05/17 at 11:00 Assessment/Plan Chief Complaint/Hosp Course Assessment 1. Patient admitted for repair of right femoral artery pseudoaneurysm status post repair. 2. Septic shock on mechanical ventilation. Possible component of adrenal insufficiency. 3. Dysphagia with G-tube 4. End-stage renal failure on hemodialysis 5. Idiopathic pulmonary fibrosis. Chronic respiratory failure on mechanical ventilation 6. Encephalopathy possible toxic metabolic. CT head demonstrates no acute intracranial pathology. Plan 1. Continue mechanical ventilation 2. Continue antibiotics, trial of hydrocortisone. Decreased vasopressor requirements noted. 3. Titrate vasopressors to keep map greater than 65 4. Would consider not removing fluid during hemodialysis as patient remains vasopressor dependent Family discussion regarding goals of care is overall prognosis extremely poor consider palliative care approach. Problems: ANGELINA TRUJILLO MD, [facility] Oct 05, 2017 09:53
[2017-10-05] MEDS ORDERED: HEPARIN 1000 UNITS/ML 10 ML INJ CATHETER ONE (10:00)
[2017-10-05] MEDS: SILVER SULFADIAZINE 1% 25 GM CR TOP SCH ×2 (11:00→12:26)
[2017-10-05] MEDS: FLUCONAZOLE 100 MG TAB GTB SCH (12:17)
[2017-10-05] MEDS: MEROPENEM 500MG/50 ML (PMX) 50 ML IVPB SCH ×2 (12:17→20:19)
[2017-10-05] MEDS: ACYCLOVIR 400 MG TAB PO SCH ×3 (12:17→20:19)
[2017-10-05] MEDS: DIGOXIN 0.125 MG TAB GTB SCH (12:19)
--- NOTE | 2017-10-05 12:53 | CONS ---
Date/Time of Note Date/Time of Note DATE: 10/05/17 TIME: 12:48 Assessment/Plan Assessment/Plan Chief Complaint/Hosp Course 87 year old male with history of ventilator dependent respiratory failure, ESRD , CHF, afib encephalopathy admitted for pseudoaneurysm repair with persistent encephalopathy. CTH no acute process, likely toxic/metabolic continue current management, overall based on comorbid advanced medical issues prognosis appears poor. Problems: Consultation Date/Type/Reason Admit Date/Time Sep 27, 2017 at 21:00 Date of Consultation: Oct 05, 2017 Type of Consultation: Neurology Reason for Consultation evaluation for encephalopathy Hx of Present Illness 87 yo male s/p trach/PEG, respiratory failure, admitted for repair of right femoral artery pseudoaneurysm with encephalopathy. CTH shows no acute process, toxic/metabolic encephalopathy is suspected from ongoing medical issues. Patient is unable to provide any history, obtained per chart, overall prognosis appears poor. Constitutional: No chills, No febrile Eyes: No visual change ENT: No congestion Respiratory: No cough, No shortness of breath Cardiovascular: No chest pain, No lightheadedness, No palpitations Gastrointestinal: No constipation, No vomiting Genitourinary: No bleeding Musculoskeletal: other (gen weakness) Skin: No bruising, No erythema Neurologic: No confusion, No focal-weakness Psychological: nl mood/affect, no complaints Social History Alcohol Use: none Smoking Status: Former smoker Drug Use: none Exam/Review of Systems Vital Signs Vitals Vital Signs Date Time Temp Pulse Resp B/P Pulse Ox O2 Delivery O2 Flow Rate FiO2 10/05/17 11:10 90 16 97 30 10/05/17 08:00 98.2 106/59 Mechanical Ventilator Intake and Output 10/04/17 10/04/17 10/05/17 15:00 23:00 07:00 Intake Total 1188.73 ml 740.0 ml 492.5 ml Output Total 4500 ml 0 ml Balance -3311.27 ml 740.0 ml 492.5 ml Exam arousable, opens his eyes unable to track unable to follow commands CN: LEO corneals intact no spontaneous cough Motor: minimal withdrawal to noxious stimuli in extremities Reflexes 1+ toes mute Results Result Diagram: 10/05/17 0623 10/05/17 0623 Results 24 hrs Laboratory Tests Test 10/04/17 14:26 10/04/17 17:25 10/04/17 21:10 10/05/17 01:58 Bedside Glucose 158 134 125 130 Test 10/05/17 04:54 10/05/17 06:23 10/05/17 09:27 Bedside Glucose 137 138 White Blood Count 9.2 Red Blood Count 3.06 L Hemoglobin 9.4 L Hematocrit 29.7 L Mean Corpuscular Volume 97.1 Mean Corpuscular Hemoglobin 30.7 Mean Corpuscular Hemoglobin Concent 31.6 L Red Cell Distribution Width 19.2 H Platelet Count 92 #L Mean Platelet Volume 10.9 H Neutrophils % 90.6 H Lymphocytes % 5.6 L Monocytes % 2.8 Eosinophils % 0.0 Basophils % 0.1 Nucleated Red Blood Cells % 0.0 Neutrophils # 8.3 H Lymphocytes # 0.5 L Monocytes # 0.3 Eosinophils # 0.0 Basophils # 0.0 Nucleated Red Blood Cells # 0.0 Sodium Level 134 L Potassium Level 5.2 H Chloride Level 100 Carbon Dioxide Level 28 Anion Gap 11 Blood Urea Nitrogen 42 H Creatinine 1.94 H Glucose Level 112 Calcium Level 9.0 Phosphorus Level 4.5 Magnesium Level 2.5 Medications Medications Current Medications Hydromorphone HCl (Dilaudid) 0.5 mg Q4H PRN IV PAIN Last administered on 17:00; Admin Dose 0.5 MG; Start 09/27/17 at 23:00 Midodrine (Proamatine) 10 mg TID@ GTB Last administered on 10/05/17 09:29; Admin Dose 10 MG; Start 09/28/17 at 09:00 Ascorbic Acid (Vitamin C) 500 mg DAILY GTB Last administered on 10/05/17 09: 16; Admin Dose 500 MG; Start 09/28/17 at 09:00 Cholecalciferol (Vitamin D) 2,000 unit DAILY GTB Last administered on 09:16; Admin Dose 2,000 UNIT; Start 09/28/17 at 09:00 Digoxin (Digoxin) 0.125 mg DAILY GTB Last administered on 10/05/17 12:19; Admin Dose 0.125 MG; Start 09/28/17 at 09:00 Ferrous Sulfate (Feosol Liquid Cup) 300 mg DAILY GTB Last administered on 10/05 09:15; Admin Dose 300 MG; Start 09/28/17 at 09:00 Fluconazole (Diflucan) 100 mg DAILY GTB Last administered on 10/05/17 12:17; Admin Dose 100 MG; Start 09/28/17 at 09:00 Folic Acid (Folic Acid) 1 mg DAILY GTB Last administered on 10/05/17 09:16; Admin Dose 1 MG; Start 09/28/17 at 09:00 Acetaminophen/ Hydrocodone Bitart ([place] (5/325)) 1 tab DAILY GTB Last administered on 09/30/17 09:34; Admin Dose 1 TAB; Start 09/28/17 at 09:00; Status Future Hold Lactobacillus Acidophilus/ Rhamnosus (Culturelle) 1 cap BID GTB Last administered on 10/05/17 09:16; Admin Dose 1 CAP; Start 09/28/17 at 09:00 Sertraline HCl (Zoloft) 25 mg QHS GTB Last administered on 10/04/17 20:54; Admin Dose 25 MG; Start 09/28/17 at 21:00 Tramadol HCl (Ultram) 50 mg DAILY PRN GTB FOR WOUND CARE; Start 09/28/17 at 08 :00; Status Future Hold Tramadol HCl (Ultram) 50 mg Q8 GTB Last administered on 10/04/17 14:28; Admin Dose 50 MG; Start 09/28/17 at 14:00 Zolpidem Tartrate (Ambien) 5 mg QHS PRN GTB INSOMNIA; Start 09/28/17 at 08:00 Diagnostic Test (Pha) 1 ea 1 ea 02 XX Last administered on 09/29/17 01:05; Admin Dose 1 EA; Start 09/29/17 at 02:00 Meropenem/Sodium Chloride 50 ml @ 100 mls/hr Q12 IVPB Last administered on 12:17; Admin Dose 100 MLS/HR; Start 09/28/17 at 09:00 Colistimethate Sodium 75 mg/ Sodium Chloride 100 ml @ 200 mls/hr Q24H IVPB Last administered on 10/04/17 15:00; Admin Dose 200 MLS/HR; Start 09/28/17 at 14:45 Daptomycin 280 mg/ Sodium Chloride 100 ml @ 200 mls/hr Q48H IVPB Last administered on 10/04/17 16:47; Admin Dose 200 MLS/HR; Start 09/30/17 at 17: 00 Dextrose/Sodium Chloride (D5-NS) 1,000 ml @ 20 mls/hr Q24H IV Last administered on 10/04/17 19:14; Admin Dose 20 MLS/HR; Start 09/28/17 at 19:00 Insulin Aspart (Novolog Insulin Pen) NOVOLOG *MILD* ALGORITHM Q4 SC Last administered on 10/04/17 14:29; Admin Dose 1 UNIT; Start 09/29/17 at 09:00 Collagenase (Santyl) 1 applic DAILY TOP Last administered on 10/05/17 09:20; Admin Dose 1 APPLIC; Start 09/29/17 at 12:00 Acyclovir 400 mg 400 mg TID PO Last administered on 10/05/17 12:17; Admin Dose 400 MG; Start 09/29/17 at 21:00 Phenylephrine HCl/ Dextrose (Erwin-Syneph/D5W) 500 ml @ 37.5 mls/hr TITRATE IV Last administered on 09/30/17 15:01; Admin Dose 120 MLS/HR; Start 09/29/17 at 18:00 Docusate Sodium (Colace Liquid Cup) 100 mg BID GTB Last administered on 09:15; Admin Dose 100 MG; Start 09/30/17 at 21:00 Multivitamins/ Minerals (Theragran-M) 1 tab DAILY GTB Last administered on 09:16; Admin Dose 1 TAB; Start 09/30/17 at 10:00 Lansoprazole (Prevacid) 30 mg DAILY@06 GTB Last administered on 10/05/17 07: 01; Admin Dose 30 MG; Start 09/30/17 at 12:15 Hydrogen Peroxide (Hydrogen Peroxide) 1 applic BID TOP Last administered on 09:20; Admin Dose 1 APPLIC; Start 09/30/17 at 21:00 Heparin Sodium (Porcine) (Heparin (5000 Units/0.5 ml)) 5,000 unit BID SC Last administered on 10/05/17 09:17; Admin Dose 5,000 UNIT; Start 10/01/17 at 21: 00 Brimonidine Tartrate 1 drop 1 drop BID BOTH EYES Last administered on 00:00; Admin Dose 1 DROP; Start 10/03/17 at 21:00 Norepinephrine/ Dextrose (Levophed/D5W) 500 ml @ 1.87 mls/hr TITRATE IV Last administered on 10/04/17 05:58; Admin Dose 13.12 MLS/HR; Start 10/03/17 at 16 :30 Hydrocortisone (Solu-Cortef) 100 mg Q8 IV Last administered on 10/05/17 07:01 ; Admin Dose 100 MG; Start 10/04/17 at 14:00 Silver Sulfadiazine (Thermazene 1% 25 Gm) 1 applic DAILY TOP Last administered on 10/05/17 12:26; Admin Dose 1 APPLIC; Start 10/05/17 at 11:00 EVER GUTIERREZ MD Oct 05, 2017 12:53
--- NOTE | 2017-10-05 14:08 | PN ---
DATE: 10/05/2017 SUBJECTIVE: The patient is in hemodialysis, status post 3 liters being removed, Levophed at 3 mcg p er minute. Lethargic, unarousable, in no distress. VITAL SIGNS: Temperature 98.3, pulse 86, respirations 14, blood pressure 105/44, saturation 95 on v ent. WBC 9.2, H and H 9.4 and 29.7, platelets 92, neutrophils 90.6. INDWELLINGS: Trach, PEG, right subclavian Perm-A-Cath and right upper extremity PICC line. ANTIMICROBIALS: The patient remains on: 1. Daptomycin. 2. Colistin. 3. Fluconazole. 4. Meropenem. PHYSICAL EXAMINATION: GENERAL: This is a chronically ill-appearing, elderly man who is in no distress. HEENT: Head atraumatic, normocephalic. Sclerae anicteric. Buccal mucosa dry. NECK: Supple. CHEST: Rise symmetrical. Breath sounds clear, diminished to bases. HEART: S1, S2. ABDOMEN: Soft, bowel tones present. EXTREMITIES: Without cyanosis. Bilateral edema. Right thigh dressing intact. ASSESSMENT: 1. Septic shock. 2. Multiple chronic wounds with wound cultures at [facility] growing multi-drug resistant orga nisms, Acinetobacter baumannii, vancomycin-resistant Enterococcus, Klebsiella pneumoniae, extended s pectrum beta-lactamase and Pseudomonas. 3. Sacral coccygeal osteomyelitis, status post debridement. 4. G-tube site cellulitis. 5. Right femoral pseudoaneurysm repair, status post right femoral pseudoaneurysm repair. 6. Nontoxic megacolon. 7. Resolving right upper back rash, remains on empiric acyclovir. 8. Failure to thrive. 9. Endstage renal disease. 10. Acute on chronic encephalopathy. PLAN: The patient remains hemodynamically unstable, although pressors being weaned down. He is on appropriate antibiotics. WBC decreasing. We will continue him on current regimen. Continue local wound care. The patient is being seen by neurology and will follow their recommendations. Dictated By: CLAYTON SHANKAR WILDLIFE ECOLOGY PROFESSOR for [facility] TAVERAS/NORM Conf#: [id number] DID#: [id number] CC: PHILIPPE JUARES DO;*EndCC*
[2017-10-05] MEDS: COLISTIMETHATE 75 MG in SOD CHLORIDE 0.9% 100 ML IVPB SCH (14:48)
[2017-10-05] MEDS: DEXTROSE 5%-0.9% NACL 1,000 ML IV SCH (19:37)
--- NOTE | 2017-10-05 20:03 | PN ---
Date/Time of Note Date/Time of Note DATE: 10/05/17 TIME: 20:01 Assessment/Plan Lines/Catheters IV Catheter Type (from [facility]): permacath [place] in Place (from [facility]): No Assessment/Plan Chief Complaint/Hosp Course 1. Hypotension, sepsis -supportive/pressor -judicious fluids 2. Sacral & left trochanter pressure ulcers: -debridement prn -local care -frequent turning and off-loading -low air loss mattress -vitamin c -short term zinc -optimize nutrition 3. 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 End-stage renal disease -HD per renal -avoid/limit nephrotoxic meds -judicious fluids -renally dose meds 5. Anemia: no acute bleed noted -closely monitor surgical site -transfuse as needed 6. Atrial fibrillation -rate control -cards optimization 7. Dysphagia with feeding tube: on tube feeds -cont tf with aspiration precautions 8. Leukocytosis: afebrile -monitor -further workup if persistent 9. Thrombocytosis -supportive 10. Hypoalbuminemia: likely multifactorial -optimize nutrition -medical management of inflammation/infection 11. Electrolyte imbalance -optimize lytes and monitor 12. Ventilator dependent respiratory failure -per pulm -pulm toilet -respiratory treatments Thank you Problems: Subjective 24 Hr Interval Summary Continues in ICU care and pressor. HD. Leukocytosis resolved. No fevers, congested cough, v/d, change in tele rhythm. Exam/Review of Systems Vital Signs Vitals Vital Signs Date Time Temp Pulse Resp B/P Pulse Ox O2 Delivery O2 Flow Rate FiO2 10/05/17 19:30 84 14 106/49 98 Mechanical Ventilator 10/05/17 17:33 30 10/05/17 16:00 97.2 Intake and Output 10/04/17 10/04/17 10/05/17 15:00 23:00 07:00 Intake Total 1188.73 ml 740.0 ml 520.0 ml Output Total 4500 ml 0 ml Balance -3311.27 ml 740.0 ml 520.0 ml Exam Free Text/Dictation Constitutional: Not following commands, ventilated Psych: lethargic Head: atraumatic, normocephalic Eyes: nl lids, nl sclera ENMT: mucosa pink and moist, nl nasal mucosa & septum Neck: non-tender, other (trach-vent), supple Respiratory: diminished breath sounds, No labored breathing Cardiovascular: irregular rhythm, other (afib) Gastrointestinal: non-tender, other (peg), soft Genitourinary - Male: nl penis, nl scrotum Musculoskeletal: nl extremities to inspection, swelling improved Extremities: cap refill 2 s Neurological: No nl speech, No nl strength (gen weakness) Skin: Femoral incision with dressing, sacral and left troch pressure ulcers Lymph: No nl lymph nodes Results Result Diagram: 10/05/17 0623 10/05/17 0623 CORA MATAMOROS MD Oct 05, 2017 20:03
[2017-10-05] MEDS: SERTRALINE 50 MG TAB GTB SCH (20:18)
[2017-10-06] VITALS (40 sets, daily range): BP systolic 95–117; BP diastolic 27–70; PULSE 56–123; RESP 12–16
[2017-10-06] MEDS: HYDROCORTISONE 100 MG INJ IV SCH ×4 (00:47→22:08)
[2017-10-06] MEDS: INSULIN ASPART [NOVOLOG] 3 ML PEN SC SCH ×6 (00:53→20:46)
[2017-10-06] MEDS: ACCU-CHEK XX SCH (02:00)
[2017-10-06 04:28] LABS: ABNORMAL IP MESSAGE 1; BASOPHILS % 0.1 % (0.0-2.0); HEMATOCRIT 30.8 % (42.0-52.0); HEMOGLOBIN 9.8 g/dl (14.0-18.0); LYMPHOCYTES # 0.6 10^3/ul (0.8-2.9); MEAN CORPUSCULAR HEMOGLOBIN 31.9 pg (29.0-33.0); MEAN CORPUSCULAR HGB CONC 31.8 g/dl (32.0-37.0); MEAN CORPUSCULAR VOLUME 100.3 fl (82.0-101.0); MEAN PLATELET VOLUME 12.9 fl (7.4-10.4); MONOCYTES % 8.1 % (0.0-11.0); NEUTROPHIL # 10.2 10^3/ul (1.6-7.5); NEUTROPHILS % 85.7 % (39.0-77.0); NUCLEATED RED BLOOD CELLS # 0.1 10^3/ul (0.0-0.0); NUCLEATED RED BLOOD CELLS% 0.5 /100WBC (0.0-0.0); PLATELET COUNT 132 10^3/UL (140-415); POSITIVE DIFF @See below; RED BLOOD COUNT 3.07 10^6/ul (4.70-6.10); RED CELL DISTRIBUTION WIDTH 19.9 % (11.5-14.5); WHITE BLOOD COUNT 11.9 10^3/ul (4.8-10.8)
[2017-10-06 05:06] LABS: CALCIUM 8.8 mg/dl (8.4-10.2); CREATININE 1.81 mg/dl (0.61-1.24); MAGNESIUM 2.6 mg/dl (1.7-2.5); POTASSIUM 4.5 mmol/L (3.5-5.1)
[2017-10-06] MEDS: traMADol 50 MG TAB GTB SCH ×3 (06:00→22:10)
[2017-10-06] MEDS: LANSOPRAZOLE 30 MG CAP GTB SCH (06:57)
[2017-10-06] MEDS: FERROUS SULFATE 60 MG/ML 5ML CUP GTB SCH (08:39)
[2017-10-06] MEDS: MEROPENEM 500MG/50 ML (PMX) 50 ML IVPB SCH ×2 (08:39→20:38)
[2017-10-06] MEDS: DOCUSATE SODIUM 10 MG/ML (10ML CUP) GTB SCH ×2 (08:39→20:37)
[2017-10-06] MEDS: LACTOBACILLUS RHAMNOSUS CAP GTB SCH ×2 (08:40→20:37)
[2017-10-06] MEDS: BRIMONIDINE 0.1% 5 ML OPH BOTH EYES SCH ×2 (08:40→20:37)
[2017-10-06] MEDS: DIGOXIN 0.125 MG TAB GTB SCH (08:40)
[2017-10-06] MEDS: FLUCONAZOLE 100 MG TAB GTB SCH (08:40)
[2017-10-06] MEDS: ACYCLOVIR 400 MG TAB PO SCH ×3 (08:40→20:39)
[2017-10-06] MEDS: MULTIVITAMINS/MINERALS TAB GTB SCH (08:40)
[2017-10-06] MEDS: FOLIC ACID 1 MG TAB GTB SCH (08:40)
[2017-10-06] MEDS: ASCORBIC ACID 500 MG TAB GTB SCH (08:40)
[2017-10-06] MEDS: COLLAGENASE 30 GM TUBE TOP SCH (08:42)
[2017-10-06] MEDS: HYDROGEN PEROXIDE 118 ML TOP SCH ×2 (08:42→20:47)
[2017-10-06] MEDS: HEPARIN 5,000 UNIT/0.5 ML VIAL SC SCH ×2 (08:42→20:42)
--- NOTE | 2017-10-06 09:04 | PN ---
Date/Time of Note Date/Time of Note DATE: 10/06/17 TIME: 09:02 Assessment/Plan VTE Prophylaxis VTE Prophylaxis Intervention: other Lines/Catheters IV [facility] Type (from [facility]): Permacath Urinary Cath still in place: No Assessment/Plan Chief Complaint/Hosp Course SUBJECTIVE: The patient remains critically ill in icu. Was weaned off Levophed. The patient remains lethargic, now retracts only to painful stimuli. No other acute events noted. last hd was yesterday no fever, chills, diaphoresis, melena, hematuria, new rash vent settings and imaging studies were reviewed OBJECTIVE: HEENT: Head is normocephalic. NECK: Supple. HEART: Regular rate. LUNGS: Show diminished breath sounds at the base. ABDOMEN: Soft, nontender to palpation. No rebound or guarding. EXTREMITIES: Positive for diffuse anasarca. DERMATOLOGIC: No rashes. MUSCULOSKELETAL: Positive wounds. NEUROLOGIC: The patient is obtunded. ASSESSMENT AND PLAN: 1. Septic shock, etiology is multifactorial secondary to pneumonia, underlying wounds. stable off pressors. Continue current antibiotic regimen and follow up with infectious disease. 2. Ventilator-dependent respiratory failure. Vent settings and ABG is reviewed. Continue to monitor. Follow up with pulmonary. 3. Right pseudoaneurysm, status post surgical repair. Continue local wound care. Follow up with vascular surgery. 4. Acute encephalopathy. Etiology is likely due to toxic metabolic. The patient has not had any significant improvement in mental status. CT scan was negative. We will place a neurology consult with Dr. Pérez for further evaluation. 5. Endstage renal disease. Plan for dialysis in 1-2 days for solute clearance and volume removal. 6. Volume overload secondary to congestive heart failure, acute kidney injury, capillary leak. Continue ultrafiltration with dialysis if patient remains hemodynamically stable. 7. Mineral bone disorder. Monitor calcium and phosphorus levels. 8. Hyperkalemia. We will dialyze patient with 2 potassium bath. 9. Hyponatremia. Continue dialysis on a 140 sodium bath. 10. Atrial fibrillation, rate controlled. Continue medical management. 11. Dysphagia, status post percutaneous endoscopic gastrostomy tube feeding. 12. Decubitus wound. Continue wound care. 13. Gastrointestinal and deep venous thrombosis prophylaxis. ok to transfer to [facility] Problems: Exam/Review of Systems Vital Signs Vitals Vital Signs Date Time Temp Pulse Resp B/P Pulse Ox O2 Delivery O2 Flow Rate FiO2 10/06/17 05:12 81 13 96 30 10/06/17 04:30 101/51 10/06/17 04:00 97.8 Mechanical Ventilator Intake and Output 10/05/17 10/05/17 10/06/17 15:00 23:00 07:00 Intake Total 1119.35 ml 585.00 ml 330 ml Output Total 6500 ml 20 ml Balance -5380.65 ml 565.00 ml 330 ml Results Result Diagram: 10/06/17 0345 10/06/17 0345 Results 24 hrs Laboratory Tests Test 10/05/17 09:27 10/05/17 13:45 10/05/17 18:10 10/05/17 20:17 Bedside Glucose 138 174 142 116 Test 10/06/17 00:50 10/06/17 03:45 10/06/17 06:33 10/06/17 08:19 Bedside Glucose 123 132 162 White Blood Count 11.9 #H Red Blood Count 3.07 L Hemoglobin 9.8 L Hematocrit 30.8 L Mean Corpuscular Volume 100.3 Mean Corpuscular Hemoglobin 31.9 Mean Corpuscular Hemoglobin Concent 31.8 L Red Cell Distribution Width 19.9 H Platelet Count 132 #L Mean Platelet Volume 12.9 H Neutrophils % 85.7 H Lymphocytes % 5.0 L Monocytes % 8.1 Eosinophils % 0.0 Basophils % 0.1 Nucleated Red Blood Cells % 0.5 H Neutrophils # 10.2 H Lymphocytes # 0.6 L Monocytes # 1.0 H Eosinophils # 0.0 Basophils # 0.0 Nucleated Red Blood Cells # 0.1 H Sodium Level 140 Potassium Level 4.5 Chloride Level 101 Carbon Dioxide Level 29 Anion Gap 15 Blood Urea Nitrogen 39 H Creatinine 1.81 H Glucose Level 124 Calcium Level 8.8 Phosphorus Level 5.0 H Magnesium Level 2.6 H Creatine Kinase < 20 L Medications Medications Current Medications Hydromorphone HCl (Dilaudid) 0.5 mg Q4H PRN IV PAIN Last administered on 17:00; Admin Dose 0.5 MG; Start 09/27/17 at 23:00 Midodrine (Proamatine) 10 mg TID@,, GTB Last administered on 10/05/17 18:08; Admin Dose 10 MG; Start 09/28/17 at 09:00 Ascorbic Acid (Vitamin C) 500 mg DAILY GTB Last administered on 10/06/17 08: 40; Admin Dose 500 MG; Start 09/28/17 at 09:00 Cholecalciferol (Vitamin D) 2,000 unit DAILY GTB Last administered on 09:16; Admin Dose 2,000 UNIT; Start 09/28/17 at 09:00 Digoxin (Digoxin) 0.125 mg DAILY GTB Last administered on 10/06/17 08:40; Admin Dose 0.125 MG; Start 09/28/17 at 09:00 Ferrous Sulfate (Feosol Liquid Cup) 300 mg DAILY GTB Last administered on 10/06 08:39; Admin Dose 300 MG; Start 09/28/17 at 09:00 Fluconazole (Diflucan) 100 mg DAILY GTB Last administered on 10/06/17 08:40; Admin Dose 100 MG; Start 09/28/17 at 09:00 Folic Acid (Folic Acid) 1 mg DAILY GTB Last administered on 10/06/17 08:40; Admin Dose 1 MG; Start 09/28/17 at 09:00 Acetaminophen/ Hydrocodone Bitart ([place] (5/325)) 1 tab DAILY GTB Last administered on 09/30/17 09:34; Admin Dose 1 TAB; Start 09/28/17 at 09:00; Status Future Hold Lactobacillus Acidophilus/ Rhamnosus (Culturelle) 1 cap BID GTB Last administered on 10/06/17 08:40; Admin Dose 1 CAP; Start 09/28/17 at 09:00 Sertraline HCl (Zoloft) 25 mg QHS GTB Last administered on 10/05/17 20:18; Admin Dose 25 MG; Start 09/28/17 at 21:00 Tramadol HCl (Ultram) 50 mg DAILY PRN GTB FOR WOUND CARE; Start 09/28/17 at 08 :00; Status Future Hold Tramadol HCl (Ultram) 50 mg Q8 GTB Last administered on 10/05/17 14:48; Admin Dose 50 MG; Start 09/28/17 at 14:00 Zolpidem Tartrate (Ambien) 5 mg QHS PRN GTB INSOMNIA; Start 09/28/17 at 08:00 Diagnostic Test (Pha) 1 ea 1 ea 02 XX Last administered on 09/29/17 01:05; Admin Dose 1 EA; Start 09/29/17 at 02:00 Meropenem/Sodium Chloride 50 ml @ 100 mls/hr Q12 IVPB Last administered on 08:39; Admin Dose 100 MLS/HR; Start 09/28/17 at 09:00 Colistimethate Sodium 75 mg/ Sodium Chloride 100 ml @ 200 mls/hr Q24H IVPB Last administered on 10/05/17 14:48; Admin Dose 200 MLS/HR; Start 09/28/17 at 14:45 Daptomycin 280 mg/ Sodium Chloride 100 ml @ 200 mls/hr Q48H IVPB Last administered on 10/04/17 16:47; Admin Dose 200 MLS/HR; Start 09/30/17 at 17: 00 Dextrose/Sodium Chloride (D5-NS) 1,000 ml @ 20 mls/hr Q24H IV Last administered on 10/05/17 19:37; Admin Dose 20 MLS/HR; Start 09/28/17 at 19:00 Insulin Aspart (Novolog Insulin Pen) NOVOLOG *MILD* ALGORITHM Q4 SC Last administered on 10/06/17 08:41; Admin Dose 1 UNIT; Start 09/29/17 at 09:00 Collagenase (Santyl) 1 applic DAILY TOP Last administered on 10/06/17 08:42; Admin Dose 1 APPLIC; Start 09/29/17 at 12:00 Acyclovir 400 mg 400 mg TID PO Last administered on 10/06/17 08:40; Admin Dose 400 MG; Start 09/29/17 at 21:00 Phenylephrine HCl/ Dextrose (Erwin-Syneph/D5W) 500 ml @ 37.5 mls/hr TITRATE IV Last administered on 09/30/17 15:01; Admin Dose 120 MLS/HR; Start 09/29/17 at 18:00 Docusate Sodium (Colace Liquid Cup) 100 mg BID GTB Last administered on 08:39; Admin Dose 100 MG; Start 09/30/17 at 21:00 Multivitamins/ Minerals (Theragran-M) 1 tab DAILY GTB Last administered on 08:40; Admin Dose 1 TAB; Start 09/30/17 at 10:00 Lansoprazole (Prevacid) 30 mg DAILY@06 GTB Last administered on 10/06/17 06: 57; Admin Dose 30 MG; Start 09/30/17 at 12:15 Hydrogen Peroxide (Hydrogen Peroxide) 1 applic BID TOP Last administered on 08:42; Admin Dose 1 APPLIC; Start 09/30/17 at 21:00 Heparin Sodium (Porcine) (Heparin (5000 Units/0.5 ml)) 5,000 unit BID SC Last administered on 10/06/17 08:42; Admin Dose 5,000 UNIT; Start 10/01/17 at 21: 00 Brimonidine Tartrate 1 drop 1 drop BID BOTH EYES Last administered on 08:40; Admin Dose 1 DROP; Start 10/03/17 at 21:00 Norepinephrine/ Dextrose (Levophed/D5W) 500 ml @ 1.87 mls/hr TITRATE IV Last administered on 10/04/17 05:58; Admin Dose 13.12 MLS/HR; Start 10/03/17 at 16 :30 Hydrocortisone (Solu-Cortef) 100 mg Q8 IV Last administered on 10/06/17 06:57 ; Admin Dose 100 MG; Start 10/04/17 at 14:00 Silver Sulfadiazine (Thermazene 1% 25 Gm) 1 applic DAILY TOP Last administered on 10/05/17 12:26; Admin Dose 1 APPLIC; Start 10/05/17 at 11:00 LIGIA MATAMOROS DO Oct 06, 2017 09:04
--- NOTE | 2017-10-06 09:05 | RADRPT ---
PROCEDURE: XR Chest. CLINICAL INDICATION: Respiratory failure. Pneumonia TECHNIQUE: Single frontal view of the chest. COMPARISON: 10/03/2017 and additional priors FINDINGS: Support lines and tubes: Tracheostomy tube tip well positioned over the mid tracheal shadow. Righ t internal jugular PermCath tip over the cavoatrial junction. Cardiac/vascular structures: Stable enlarged cardiomediastinal silhouette. Aortic calcifications. Pulmonary: Similar bilateral interstitial opacities and bibasilar air space opacities. Bilateral pl eural effusions, larger on the right. No evidence of pneumothorax. Osseous structures: Degenerative changes of the shoulders. Soft tissues: Normal IMPRESSION: 1. Stable position of PermCath and tracheostomy. 2. Cardiomegaly with bilateral interstitial opacities representing pulmonary edema or infection. 3. Bibasilar air space opacities representing atelectasis or pneumonia. 4. Bilateral pleural effusions, larger on the right. 5. Aortic atherosclerotic calcifications. RPTAT:AAJJ Physician Avery Date Time Electronically viewed and signed by Sara Green Physician on 10/06/2017 09:05 /
[2017-10-06] MEDS: CHOLECALCIFEROL 2,000 UNIT CAP GTB SCH (10:26)
[2017-10-06] MEDS: MIDODRINE 5 MG TAB GTB SCH ×3 (10:26→16:46)
--- NOTE | 2017-10-06 10:50 | CONS ---
Date/Time of Note Date/Time of Note DATE: 10/06/17 TIME: 10:48 Assessment/Plan Assessment/Plan Additional Assessment/Plan Chest x-ray was reviewed from today which is again showing severe interstitial lung disease. Assessment and recommendations; 1. Patient admitted for repair of right femoral artery pseudoaneurysm. 2. Interval resolution of hypotension. 3. Encephalopathy. 4. Chronic renal failure, on hemodialysis. 5. Mild anemia and thrombocytopenia. 6. Advanced interstitial lung disease. Continue current supportive care. Patient can be transferred to either rehab or to telemetry unit. Overall prognosis remains very poor. Consultation Date/Type/Reason Admit Date/Time Sep 27, 2017 at 21:00 Initial Consult Date 09/28/17 Type of Consultation: Pulmonary/critical care Referring Provider: PHILIPPE JUARES DO 24 HR Interval Summary Free Text/Dictation Patient's condition remains stable hemodynamically. Patient however still exhibiting poor overall mental status. General exam; elderly male, on ventilator via tracheostomy, arousable but unresponsive to any commands. Exam/Review of Systems Vital Signs Vitals Vital Signs Date Time Temp Pulse Resp B/P Pulse Ox O2 Delivery O2 Flow Rate FiO2 10/06/17 09:00 83 15 116/70 96 Mechanical Ventilator 10/06/17 08:00 97.7 10/06/17 08:00 30 Intake and Output 10/05/17 10/05/17 10/06/17 15:00 23:00 07:00 Intake Total 1119.35 ml 585.00 ml 330 ml Output Total 6500 ml 20 ml Balance -5380.65 ml 565.00 ml 330 ml Exam HEENT exam; supple neck, no JVD. No lymphadenopathy. Midline trachea. No thyromegaly. Patient is edentulous. Tracheostomy in place. Chest exam; diminished breath sounds bilaterally. S1-S2 audible, no murmurs. Regular rhythm. Abdomen exam; soft, G-tube in place. No organomegaly. Bowel sounds audible. Extremity exam; no peripheral edema. 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 Results Result Diagram: 10/06/17 0345 10/06/17 0345 Results 24 hrs Laboratory Tests Test 10/05/17 13:45 10/05/17 18:10 10/05/17 20:17 10/06/17 00:50 Bedside Glucose 174 142 116 123 Test 10/06/17 03:45 10/06/17 06:33 10/06/17 08:19 White Blood Count 11.9 #H Red Blood Count 3.07 L Hemoglobin 9.8 L Hematocrit 30.8 L Mean Corpuscular Volume 100.3 Mean Corpuscular Hemoglobin 31.9 Mean Corpuscular Hemoglobin Concent 31.8 L Red Cell Distribution Width 19.9 H Platelet Count 132 #L Mean Platelet Volume 12.9 H Neutrophils % 85.7 H Lymphocytes % 5.0 L Monocytes % 8.1 Eosinophils % 0.0 Basophils % 0.1 Nucleated Red Blood Cells % 0.5 H Neutrophils # 10.2 H Lymphocytes # 0.6 L Monocytes # 1.0 H Eosinophils # 0.0 Basophils # 0.0 Nucleated Red Blood Cells # 0.1 H Sodium Level 140 Potassium Level 4.5 Chloride Level 101 Carbon Dioxide Level 29 Anion Gap 15 Blood Urea Nitrogen 39 H Creatinine 1.81 H Glucose Level 124 Calcium Level 8.8 Phosphorus Level 5.0 H Magnesium Level 2.6 H Creatine Kinase < 20 L Bedside Glucose 132 162 Medications Medications Current Medications Hydromorphone HCl (Dilaudid) 0.5 mg Q4H PRN IV PAIN Last administered on 17:00; Admin Dose 0.5 MG; Start 09/27/17 at 23:00 Midodrine (Proamatine) 10 mg TID@17 GTB Last administered on 10/06/17 10:26; Admin Dose 10 MG; Start 09/28/17 at 09:00 Ascorbic Acid (Vitamin C) 500 mg DAILY GTB Last administered on 10/06/17 08: 40; Admin Dose 500 MG; Start 09/28/17 at 09:00 Cholecalciferol (Vitamin D) 2,000 unit DAILY GTB Last administered on 10:26; Admin Dose 2,000 UNIT; Start 09/28/17 at 09:00 Digoxin (Digoxin) 0.125 mg DAILY GTB Last administered on 10/06/17 08:40; Admin Dose 0.125 MG; Start 09/28/17 at 09:00 Ferrous Sulfate (Feosol Liquid Cup) 300 mg DAILY GTB Last administered on 10/06 08:39; Admin Dose 300 MG; Start 09/28/17 at 09:00 Fluconazole (Diflucan) 100 mg DAILY GTB Last administered on 10/06/17 08:40; Admin Dose 100 MG; Start 09/28/17 at 09:00 Folic Acid (Folic Acid) 1 mg DAILY GTB Last administered on 10/06/17 08:40; Admin Dose 1 MG; Start 09/28/17 at 09:00 Acetaminophen/ Hydrocodone Bitart ([place] (5/325)) 1 tab DAILY GTB Last administered on 09/30/17 09:34; Admin Dose 1 TAB; Start 09/28/17 at 09:00; Status Future Hold Lactobacillus Acidophilus/ Rhamnosus (Culturelle) 1 cap BID GTB Last administered on 10/06/17 08:40; Admin Dose 1 CAP; Start 09/28/17 at 09:00 Sertraline HCl (Zoloft) 25 mg QHS GTB Last administered on 10/05/17 20:18; Admin Dose 25 MG; Start 09/28/17 at 21:00 Tramadol HCl (Ultram) 50 mg DAILY PRN GTB FOR WOUND CARE; Start 09/28/17 at 08 :00; Status Future Hold Tramadol HCl (Ultram) 50 mg Q8 GTB Last administered on 10/05/17 14:48; Admin Dose 50 MG; Start 09/28/17 at 14:00 Zolpidem Tartrate (Ambien) 5 mg QHS PRN GTB INSOMNIA; Start 09/28/17 at 08:00 Diagnostic Test (Pha) 1 ea 1 ea 02 XX Last administered on 09/29/17 01:05; Admin Dose 1 EA; Start 09/29/17 at 02:00 Meropenem/Sodium Chloride 50 ml @ 100 mls/hr Q12 IVPB Last administered on 08:39; Admin Dose 100 MLS/HR; Start 09/28/17 at 09:00 Colistimethate Sodium 75 mg/ Sodium Chloride 100 ml @ 200 mls/hr Q24H IVPB Last administered on 10/05/17 14:48; Admin Dose 200 MLS/HR; Start 09/28/17 at 14:45 Daptomycin 280 mg/ Sodium Chloride 100 ml @ 200 mls/hr Q48H IVPB Last administered on 10/04/17 16:47; Admin Dose 200 MLS/HR; Start 09/30/17 at 17: 00 Dextrose/Sodium Chloride (D5-NS) 1,000 ml @ 20 mls/hr Q24H IV Last administered on 10/05/17 19:37; Admin Dose 20 MLS/HR; Start 09/28/17 at 19:00 Insulin Aspart (Novolog Insulin Pen) NOVOLOG *MILD* ALGORITHM Q4 SC Last administered on 10/06/17 08:41; Admin Dose 1 UNIT; Start 09/29/17 at 09:00 Collagenase (Santyl) 1 applic DAILY TOP Last administered on 10/06/17 08:42; Admin Dose 1 APPLIC; Start 09/29/17 at 12:00 Acyclovir 400 mg 400 mg TID PO Last administered on 10/06/17 08:40; Admin Dose 400 MG; Start 09/29/17 at 21:00 Phenylephrine HCl/ Dextrose (Erwin-Syneph/D5W) 500 ml @ 37.5 mls/hr TITRATE IV Last administered on 09/30/17 15:01; Admin Dose 120 MLS/HR; Start 09/29/17 at 18:00 Docusate Sodium (Colace Liquid Cup) 100 mg BID GTB Last administered on 08:39; Admin Dose 100 MG; Start 09/30/17 at 21:00 Multivitamins/ Minerals (Theragran-M) 1 tab DAILY GTB Last administered on 08:40; Admin Dose 1 TAB; Start 09/30/17 at 10:00 Lansoprazole (Prevacid) 30 mg DAILY@06 GTB Last administered on 10/06/17 06: 57; Admin Dose 30 MG; Start 09/30/17 at 12:15 Hydrogen Peroxide (Hydrogen Peroxide) 1 applic BID TOP Last administered on 08:42; Admin Dose 1 APPLIC; Start 09/30/17 at 21:00 Heparin Sodium (Porcine) (Heparin (5000 Units/0.5 ml)) 5,000 unit BID SC Last administered on 10/06/17 08:42; Admin Dose 5,000 UNIT; Start 10/01/17 at 21: 00 Brimonidine Tartrate 1 drop 1 drop BID BOTH EYES Last administered on 08:40; Admin Dose 1 DROP; Start 10/03/17 at 21:00 Norepinephrine/ Dextrose (Levophed/D5W) 500 ml @ 1.87 mls/hr TITRATE IV Last administered on 10/04/17 05:58; Admin Dose 13.12 MLS/HR; Start 10/03/17 at 16 :30 Hydrocortisone (Solu-Cortef) 100 mg Q8 IV Last administered on 10/06/17 06:57 ; Admin Dose 100 MG; Start 10/04/17 at 14:00 Silver Sulfadiazine (Thermazene 1% 25 Gm) 1 applic DAILY TOP Last administered on 10/05/17 12:26; Admin Dose 1 APPLIC; Start 10/05/17 at 11:00 DAKOTA SHELLEY Oct 06, 2017 10:50
--- NOTE | 2017-10-06 11:27 | CONS ---
Date/Time of Note Date/Time of Note DATE: 10/06/17 TIME: :27 Assessment/Plan Assessment/Plan Chief Complaint/Hosp Course ID PROGRESS NOTE CURRENT ABX: DAY # =>Daptomycin, Colistin IV, Diflucan, Merrem 24H INTERVAL SUMMARY * Encephalopathic, no response to verbal- lethargic afebrile, VSS, NAD, d/w RN attending to patient * s/p HD yesterday via Right PermCath * Vitals/Labs reviewed as below * BRAIN Imagin. Moderate opacification of the bilateral sphenoid sinuses without coalescence of the mastoid air cells.5. Moderate opacification of the right sphenoid sinus. * 10/06/17 CXRIMPRESSION: * 1. Stable position of PermCath and tracheostomy. * 2. Cardiomegaly with bilateral interstitial opacities representing pulmonary edema or infection. * 3. Bibasilar air space opacities representing atelectasis or pneumonia. * 4. Bilateral pleural effusions, larger on the right. * 5. Aortic atherosclerotic calcifications. PHYSICAL EXAMINATION: GENERAL: 87 yo critically on chronically ill/debilitated M, non-communicative, encephalopathic, VSS, afebrile, NAD HEENT: Unremarkable NECK: Supple, trach midline CHEST: Equal chest rise bilaterally, without dyspnea on observation HEART: RRR ABDOMEN: Large, NT, Peg w/surrounding cellulitis : NL M, anuric EXT: Warm, BUEXT ecchymosis w/edema R>L, BLEXT generalized edema, warm SKIN: No diaphoresis, multiple areas of ecchymosis, decubs - Right thigh DSG ID ASSESSMENT: 87 yo M PMHx dementia, HTN, HLD, DMT2, ESRD-HD admit [facility] ICU: 1. Septic shock. * 09/28/17 BCx (-) * Anuric, not able to obtain sample for cx 2. Right femoral pseudoaneurysm repair, status post right femoral pseudoaneurysm repair. 3. HCAP vs ASP PNA w/bilateral pleural effusions and opacification ILD, pulm edema / ATX 4. Multiple chronic wounds * Wound Cx: [place] => ACBA, VRE, KP-ESBL, PSAR * Sacral coccygeal osteomyelitis, status post debridement. 5. G-tube site cellulitis. 6. Nontoxic megacolon. 7. Resolving right upper back rash, remains on empiric acyclovir. 8. Failure to thrive. 9. Endstage renal disease. 10. Acute on chronic encephalopathy. 11. Bilateral sinus disease (- )MRSA ABX ALLERGIES: None to ABX INVASIVES: : Trach, PEG, right subclavian Perm-A-Cath and right upper extremity PICC line. CURRENT ABX: =>Daptomycin, Colistin IV, Diflucan, Merrem ID RECOMMENDATIONS/PLAN: 1. Continue current ABX over the weekend 2. ID team consultants will continue to follow . Problems: Consultation Date/Type/Reason Admit Date/Time Sep 27, 2017 at 21:00 Initial Consult Date 10/05/17 Referring Provider: PHILIPPE JUARES DO Exam/Review of Systems Vital Signs Vitals Vital Signs Date Time Temp Pulse Resp B/P Pulse Ox O2 Delivery O2 Flow Rate FiO2 10/06/17 09:00 83 15 116/70 96 Mechanical Ventilator 10/06/17 08:00 97.7 10/06/17 08:00 30 Intake and Output 10/05/17 10/05/17 10/06/17 15:00 23:00 07:00 Intake Total 1119.35 ml 585.00 ml 330 ml Output Total 6500 ml 20 ml Balance -5380.65 ml 565.00 ml 330 ml Results Result Diagram: 10/06/17 0345 10/06/17 0345 Results 24 hrs Laboratory Tests Test 10/05/17 13:45 10/05/17 18:10 10/05/17 20:17 10/06/17 00:50 Bedside Glucose 174 142 116 123 Test 10/06/17 03:45 10/06/17 06:33 10/06/17 08:19 White Blood Count 11.9 #H Red Blood Count 3.07 L Hemoglobin 9.8 L Hematocrit 30.8 L Mean Corpuscular Volume 100.3 Mean Corpuscular Hemoglobin 31.9 Mean Corpuscular Hemoglobin Concent 31.8 L Red Cell Distribution Width 19.9 H Platelet Count 132 #L Mean Platelet Volume 12.9 H Neutrophils % 85.7 H Lymphocytes % 5.0 L Monocytes % 8.1 Eosinophils % 0.0 Basophils % 0.1 Nucleated Red Blood Cells % 0.5 H Neutrophils # 10.2 H Lymphocytes # 0.6 L Monocytes # 1.0 H Eosinophils # 0.0 Basophils # 0.0 Nucleated Red Blood Cells # 0.1 H Sodium Level 140 Potassium Level 4.5 Chloride Level 101 Carbon Dioxide Level 29 Anion Gap 15 Blood Urea Nitrogen 39 H Creatinine 1.81 H Glucose Level 124 Calcium Level 8.8 Phosphorus Level 5.0 H Magnesium Level 2.6 H Creatine Kinase < 20 L Bedside Glucose 132 162 Medications Medications Current Medications Hydromorphone HCl (Dilaudid) 0.5 mg Q4H PRN IV PAIN Last administered on 17:00; Admin Dose 0.5 MG; Start 09/27/17 at 23:00 Midodrine (Proamatine) 10 mg TID@ GTB Last administered on 10/06/17 10:26; Admin Dose 10 MG; Start 09/28/17 at 09:00 Ascorbic Acid (Vitamin C) 500 mg DAILY GTB Last administered on 10/06/17 08: 40; Admin Dose 500 MG; Start 09/28/17 at 09:00 Cholecalciferol (Vitamin D) 2,000 unit DAILY GTB Last administered on 10:26; Admin Dose 2,000 UNIT; Start 09/28/17 at 09:00 Digoxin (Digoxin) 0.125 mg DAILY GTB Last administered on 10/06/17 08:40; Admin Dose 0.125 MG; Start 09/28/17 at 09:00 Ferrous Sulfate (Feosol Liquid Cup) 300 mg DAILY GTB Last administered on 10/06 08:39; Admin Dose 300 MG; Start 09/28/17 at 09:00 Fluconazole (Diflucan) 100 mg DAILY GTB Last administered on 10/06/17 08:40; Admin Dose 100 MG; Start 09/28/17 at 09:00 Folic Acid (Folic Acid) 1 mg DAILY GTB Last administered on 10/06/17 08:40; Admin Dose 1 MG; Start 09/28/17 at 09:00 Acetaminophen/ Hydrocodone Bitart (Alpha (5/325)) 1 tab DAILY GTB Last administered on 09/30/17 09:34; Admin Dose 1 TAB; Start 09/28/17 at 09:00; Status Future Hold Lactobacillus Acidophilus/ Rhamnosus (Culturelle) 1 cap BID GTB Last administered on 10/06/17 08:40; Admin Dose 1 CAP; Start 09/28/17 at 09:00 Sertraline HCl (Zoloft) 25 mg QHS GTB Last administered on 10/05/17 20:18; Admin Dose 25 MG; Start 09/28/17 at 21:00 Tramadol HCl (Ultram) 50 mg DAILY PRN GTB FOR WOUND CARE; Start 09/28/17 at 08 :00; Status Future Hold Tramadol HCl (Ultram) 50 mg Q8 GTB Last administered on 10/05/17 14:48; Admin Dose 50 MG; Start 09/28/17 at 14:00 Zolpidem Tartrate (Ambien) 5 mg QHS PRN GTB INSOMNIA; Start 09/28/17 at 08:00 Diagnostic Test (Pha) 1 ea 1 ea 02 XX Last administered on 09/29/17 01:05; Admin Dose 1 EA; Start 09/29/17 at 02:00 Meropenem/Sodium Chloride 50 ml @ 100 mls/hr Q12 IVPB Last administered on 08:39; Admin Dose 100 MLS/HR; Start 09/28/17 at 09:00 Colistimethate Sodium 75 mg/ Sodium Chloride 100 ml @ 200 mls/hr Q24H IVPB Last administered on 10/05/17 14:48; Admin Dose 200 MLS/HR; Start 09/28/17 at 14:45 Daptomycin 280 mg/ Sodium Chloride 100 ml @ 200 mls/hr Q48H IVPB Last administered on 10/04/17 16:47; Admin Dose 200 MLS/HR; Start 09/30/17 at 17: 00 Dextrose/Sodium Chloride (D5-NS) 1,000 ml @ 20 mls/hr Q24H IV Last administered on 10/05/17 19:37; Admin Dose 20 MLS/HR; Start 09/28/17 at 19:00 Insulin Aspart (Novolog Insulin Pen) NOVOLOG *MILD* ALGORITHM Q4 SC Last administered on 10/06/17 08:41; Admin Dose 1 UNIT; Start 09/29/17 at 09:00 Collagenase (Santyl) 1 applic DAILY TOP Last administered on 10/06/17 08:42; Admin Dose 1 APPLIC; Start 09/29/17 at 12:00 Acyclovir 400 mg 400 mg TID PO Last administered on 10/06/17 08:40; Admin Dose 400 MG; Start 09/29/17 at 21:00 Phenylephrine HCl/ Dextrose (Erwin-Syneph/D5W) 500 ml @ 37.5 mls/hr TITRATE IV Last administered on 09/30/17 15:01; Admin Dose 120 MLS/HR; Start 09/29/17 at 18:00 Docusate Sodium (Colace Liquid Cup) 100 mg BID GTB Last administered on 08:39; Admin Dose 100 MG; Start 09/30/17 at 21:00 Multivitamins/ Minerals (Theragran-M) 1 tab DAILY GTB Last administered on 08:40; Admin Dose 1 TAB; Start 09/30/17 at 10:00 Lansoprazole (Prevacid) 30 mg DAILY@06 GTB Last administered on 10/06/17 06: 57; Admin Dose 30 MG; Start 09/30/17 at 12:15 Hydrogen Peroxide (Hydrogen Peroxide) 1 applic BID TOP Last administered on 08:42; Admin Dose 1 APPLIC; Start 09/30/17 at 21:00 Heparin Sodium (Porcine) (Heparin (5000 Units/0.5 ml)) 5,000 unit BID SC Last administered on 10/06/17 08:42; Admin Dose 5,000 UNIT; Start 10/01/17 at 21: 00 Brimonidine Tartrate 1 drop 1 drop BID BOTH EYES Last administered on 08:40; Admin Dose 1 DROP; Start 10/03/17 at 21:00 Norepinephrine/ Dextrose (Levophed/D5W) 500 ml @ 1.87 mls/hr TITRATE IV Last administered on 10/04/17 05:58; Admin Dose 13.12 MLS/HR; Start 10/03/17 at 16 :30 Hydrocortisone (Solu-Cortef) 100 mg Q8 IV Last administered on 10/06/17 06:57 ; Admin Dose 100 MG; Start 10/04/17 at 14:00 Silver Sulfadiazine (Thermazene 1% 25 Gm) 1 applic DAILY TOP Last administered on 10/05/17 12:26; Admin Dose 1 APPLIC; Start 10/05/17 at 11:00 NURYS FLOREZ NP Oct 06, 2017 11:27
--- NOTE | 2017-10-06 11:43 | CONS ---
Date/Time of Note Date/Time of Note DATE: 10/06/17 TIME: 11:42 Consult Date/Type/Reason Admit Date/Time Sep 27, 2017 at 21:00 Initial Consult Date 09/28/17 Type of Consultation: cardiology Ordering Provider: PHILIPPE JUARES DO Subjective Cardiology follow up note S: D/ W staff and rhythm was reviewed. pt remains in Afib. his HR is under good control but pt also with frequent PVC and ventricular bigeminy he remains lethargic and novnerbal now still on vent in ICU pt is still on levophed drip O: General: Thin. s/p trach on vent. no acute distress HEENT: NC/AT. pupils are equal. round. NECK: s/p trach. . no stridor. CV: irregularly irregular. systolic murmur; no gallop or rubs. PULM: no wheezing . + rhonchi. GI: SOFT, NT, ND, no rebound or guarding vascular: R fem s/p surgery Extremity: increased B/L LE edema. no clubbing. neuro: lethargic Psych: calm and pleasant rectal: deferred : normal male Derm: With diffuse ecchymosis throughout the body. CXR reviewed. ECHO: 1. Normal left ventricular systolic function. Normal left ventricular cavity size. Moderate concentric left ventricular hypertrophy. Ejection fraction is visually estimated at 65 %. Abnormal Diastolic Function. 2. Aortic sclerosis without stenosis. Objective Vital Signs Date Time Temp Pulse Resp B/P Pulse Ox O2 Delivery O2 Flow Rate FiO2 10/06/17 09:00 83 15 116/70 96 Mechanical Ventilator 10/06/17 08:00 97.7 10/06/17 08:00 30 Intake and Output 10/05/17 10/05/17 10/06/17 15:00 23:00 07:00 Intake Total 1119.35 ml 585.00 ml 330 ml Output Total 6500 ml 20 ml Balance -5380.65 ml 565.00 ml 330 ml Results/Medications Result Diagram: 10/06/17 0345 10/06/17 0345 Results 24 hrs Laboratory Tests Test 10/05/17 13:45 10/05/17 18:10 10/05/17 20:17 10/06/17 00:50 Bedside Glucose 174 142 116 123 Test 10/06/17 03:45 10/06/17 06:33 10/06/17 08:19 White Blood Count 11.9 #H Red Blood Count 3.07 L Hemoglobin 9.8 L Hematocrit 30.8 L Mean Corpuscular Volume 100.3 Mean Corpuscular Hemoglobin 31.9 Mean Corpuscular Hemoglobin Concent 31.8 L Red Cell Distribution Width 19.9 H Platelet Count 132 #L Mean Platelet Volume 12.9 H Neutrophils % 85.7 H Lymphocytes % 5.0 L Monocytes % 8.1 Eosinophils % 0.0 Basophils % 0.1 Nucleated Red Blood Cells % 0.5 H Neutrophils # 10.2 H Lymphocytes # 0.6 L Monocytes # 1.0 H Eosinophils # 0.0 Basophils # 0.0 Nucleated Red Blood Cells # 0.1 H Sodium Level 140 Potassium Level 4.5 Chloride Level 101 Carbon Dioxide Level 29 Anion Gap 15 Blood Urea Nitrogen 39 H Creatinine 1.81 H Glucose Level 124 Calcium Level 8.8 Phosphorus Level 5.0 H Magnesium Level 2.6 H Creatine Kinase < 20 L Bedside Glucose 132 162 Medications Current Medications Hydromorphone HCl (Dilaudid) 0.5 mg Q4H PRN IV PAIN Last administered on 17:00; Admin Dose 0.5 MG; Start 09/27/17 at 23:00 Midodrine (Proamatine) 10 mg TID@ GTB Last administered on 10/06/17 10:26; Admin Dose 10 MG; Start 09/28/17 at 09:00 Ascorbic Acid (Vitamin C) 500 mg DAILY GTB Last administered on 10/06/17 08: 40; Admin Dose 500 MG; Start 09/28/17 at 09:00 Cholecalciferol (Vitamin D) 2,000 unit DAILY GTB Last administered on 10:26; Admin Dose 2,000 UNIT; Start 09/28/17 at 09:00 Digoxin (Digoxin) 0.125 mg DAILY GTB Last administered on 10/06/17 08:40; Admin Dose 0.125 MG; Start 09/28/17 at 09:00 Ferrous Sulfate (Feosol Liquid Cup) 300 mg DAILY GTB Last administered on 10/06 08:39; Admin Dose 300 MG; Start 09/28/17 at 09:00 Fluconazole (Diflucan) 100 mg DAILY GTB Last administered on 10/06/17 08:40; Admin Dose 100 MG; Start 09/28/17 at 09:00 Folic Acid (Folic Acid) 1 mg DAILY GTB Last administered on 10/06/17 08:40; Admin Dose 1 MG; Start 09/28/17 at 09:00 Acetaminophen/ Hydrocodone Bitart ([place] (5/325)) 1 tab DAILY GTB Last administered on 09/30/17 09:34; Admin Dose 1 TAB; Start 09/28/17 at 09:00; Status Future Hold Lactobacillus Acidophilus/ Rhamnosus (Culturelle) 1 cap BID GTB Last administered on 10/06/17 08:40; Admin Dose 1 CAP; Start 09/28/17 at 09:00 Sertraline HCl (Zoloft) 25 mg QHS GTB Last administered on 10/05/17 20:18; Admin Dose 25 MG; Start 09/28/17 at 21:00 Tramadol HCl (Ultram) 50 mg DAILY PRN GTB FOR WOUND CARE; Start 09/28/17 at 08 :00; Status Future Hold Tramadol HCl (Ultram) 50 mg Q8 GTB Last administered on 10/05/17 14:48; Admin Dose 50 MG; Start 09/28/17 at 14:00 Zolpidem Tartrate (Ambien) 5 mg QHS PRN GTB INSOMNIA; Start 09/28/17 at 08:00 Diagnostic Test (Pha) 1 ea 1 ea 02 XX Last administered on 09/29/17 01:05; Admin Dose 1 EA; Start 09/29/17 at 02:00 Meropenem/Sodium Chloride 50 ml @ 100 mls/hr Q12 IVPB Last administered on 08:39; Admin Dose 100 MLS/HR; Start 09/28/17 at 09:00 Colistimethate Sodium 75 mg/ Sodium Chloride 100 ml @ 200 mls/hr Q24H IVPB Last administered on 10/05/17 14:48; Admin Dose 200 MLS/HR; Start 09/28/17 at 14:45 Daptomycin 280 mg/ Sodium Chloride 100 ml @ 200 mls/hr Q48H IVPB Last administered on 10/04/17 16:47; Admin Dose 200 MLS/HR; Start 09/30/17 at 17: 00 Dextrose/Sodium Chloride (D5-NS) 1,000 ml @ 20 mls/hr Q24H IV Last administered on 10/05/17 19:37; Admin Dose 20 MLS/HR; Start 09/28/17 at 19:00 Insulin Aspart (Novolog Insulin Pen) NOVOLOG *MILD* ALGORITHM Q4 SC Last administered on 10/06/17 08:41; Admin Dose 1 UNIT; Start 09/29/17 at 09:00 Collagenase (Santyl) 1 applic DAILY TOP Last administered on 10/06/17 08:42; Admin Dose 1 APPLIC; Start 09/29/17 at 12:00 Acyclovir 400 mg 400 mg TID PO Last administered on 10/06/17 08:40; Admin Dose 400 MG; Start 09/29/17 at 21:00 Phenylephrine HCl/ Dextrose (Erwin-Syneph/D5W) 500 ml @ 37.5 mls/hr TITRATE IV Last administered on 09/30/17 15:01; Admin Dose 120 MLS/HR; Start 09/29/17 at 18:00 Docusate Sodium (Colace Liquid Cup) 100 mg BID GTB Last administered on 08:39; Admin Dose 100 MG; Start 09/30/17 at 21:00 Multivitamins/ Minerals (Theragran-M) 1 tab DAILY GTB Last administered on 08:40; Admin Dose 1 TAB; Start 09/30/17 at 10:00 Lansoprazole (Prevacid) 30 mg DAILY@06 GTB Last administered on 10/06/17 06: 57; Admin Dose 30 MG; Start 09/30/17 at 12:15 Hydrogen Peroxide (Hydrogen Peroxide) 1 applic BID TOP Last administered on 08:42; Admin Dose 1 APPLIC; Start 09/30/17 at 21:00 Heparin Sodium (Porcine) (Heparin (5000 Units/0.5 ml)) 5,000 unit BID SC Last administered on 10/06/17 08:42; Admin Dose 5,000 UNIT; Start 10/01/17 at 21: 00 Brimonidine Tartrate 1 drop 1 drop BID BOTH EYES Last administered on 08:40; Admin Dose 1 DROP; Start 10/03/17 at 21:00 Norepinephrine/ Dextrose (Levophed/D5W) 500 ml @ 1.87 mls/hr TITRATE IV Last administered on 10/04/17 05:58; Admin Dose 13.12 MLS/HR; Start 10/03/17 at 16 :30 Hydrocortisone (Solu-Cortef) 100 mg Q8 IV Last administered on 10/06/17 06:57 ; Admin Dose 100 MG; Start 10/04/17 at 14:00 Silver Sulfadiazine (Thermazene 1% 25 Gm) 1 applic DAILY TOP Last administered on 10/05/17 12:26; Admin Dose 1 APPLIC; Start 10/05/17 at 11:00 Assessment/Plan Chief Complaint/Hosp Course 1. SHOCK: septic 2. Afib: persistent/ chronic now. 3. hypoxemic resp failure: s/p trach vent dependent now. 4. hx anemia and GI bleed: off of any anticoagulation 5. 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 s/p multiple infections 8. dysphagia: s/p PEG 9. encephalopathy: 10. fluid overload/ CHF/ anasarca: ACUTE on chronic due to fluid overload and diastolic failure. 11. Ventricular arrhythmia and PVC Recommendations: I will continue with the pressors for now. WILL try to wean off if BP remains stable Vent support will be continued for now. Hemodialysis will be managed by nephrology team . cont Heart rate control Transfusion as needed will be given.. Patient currently off of full anticoagulation due to concern about history of severe anemia as well as GI bleed and OB positive stool. Head CT done 10/02/17 did not show any acute CVA prognosis is poor Continue with the ICU care. Thank you for his referral. I will continue to follow along with you. DIOR JEFFERSON MD LOCATED [facility]IN [facility] Problems: DIOR JEFFERSON MD Oct 06, 2017 11:43
--- NOTE | 2017-10-06 13:04 | PN ---
Date/Time of Note Date/Time of Note DATE: 10/06/17 TIME: 13:00 Assessment/Plan Lines/Catheters IV Catheter Type (from [facility]): Central Line Pathak in Place (from [facility]): No Assessment/Plan Chief Complaint/Hosp Course 1. Hypotension, sepsis -supportive/pressor -judicious fluids 2. Sacral & left trochanter pressure ulcers: -debridement prn -local care -frequent turning and off-loading -low air loss mattress -vitamin c -short term zinc -optimize nutrition 3. 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 End-stage renal disease -HD per renal -avoid/limit nephrotoxic meds -judicious fluids -renally dose meds 5. Anemia: no acute bleed noted -closely monitor surgical site -transfuse as needed 6. Atrial fibrillation -rate control -lyte optimization -cards optimization 7. Dysphagia with feeding tube: on tube feeds -cont tf with aspiration precautions 8. Leukocytosis: afebrile -monitor -further workup if persistent 9. Thrombocytosis -supportive 10. Hypoalbuminemia: likely multifactorial -optimize nutrition -medical management of inflammation/infection 11. Electrolyte imbalance -optimize lytes and monitor 12. Ventilator dependent respiratory failure -per pulm -pulm toilet -respiratory treatments Thank you, Problems: Subjective 24 Hr Interval Summary Continues in ICU care and pressor. HD. Leukocytosis. No fevers, congested cough , v/d. AFib, rate controlled. Non responsive. Exam/Review of Systems Vital Signs Vitals Vital Signs Date Time Temp Pulse Resp B/P Pulse Ox O2 Delivery O2 Flow Rate FiO2 10/06/17 12:00 76 10/06/17 09:00 15 116/70 96 Mechanical Ventilator 10/06/17 08:00 97.7 10/06/17 08:00 30 Intake and Output 10/05/17 10/05/17 10/06/17 14:59 22:59 06:59 Intake Total 1153.10 ml 588.75 ml 380 ml Output Total 6500 ml 20 ml Balance -5346.90 ml 568.75 ml 380 ml Exam Free Text/Dictation Constitutional: Not following commands, ventilated Psych: lethargic, non responsive Head: atraumatic, normocephalic Eyes: nl lids, nl sclera ENMT: mucosa pink and moist, nl nasal mucosa & septum Neck: non-tender, other (trach-vent), supple Respiratory: diminished breath sounds, No labored breathing Cardiovascular: irregular rhythm, other (afib) Gastrointestinal: non-tender, other (peg), soft Genitourinary - Male: nl penis, nl scrotum Musculoskeletal: nl extremities to inspection, swelling improved Extremities: cap refill 2 s Neurological: No nl speech, No nl strength (gen weakness) Skin: Femoral incision with dressing, sacral and left troch pressure ulcers Lymph: No nl lymph nodes Results Result Diagram: 10/06/17 0345 10/06/17 0345 CORA MATAMOROS MD Oct 06, 2017 13:04
[2017-10-06] MEDS: COLISTIMETHATE 75 MG in SOD CHLORIDE 0.9% 100 ML IVPB SCH (13:45)
--- NOTE | 2017-10-06 14:13 | CONS ---
Date/Time of Note Date/Time of Note DATE: 10/06/17 TIME: 14:11 Assessment/Plan Assessment/Plan Additional Assessment/Plan Additional Assessment/Plan Additional Assessment/Plan 1. Repair of pseudoaneurysm right femoral artery 2. Shock secondary to volume depletion versus sepsis 3. Nontoxic megacolon resolved 4. Dysphagia status post PEG, no evidence of cellulitis 5. Vent dependent respiratory failure 6. Anemia no evidence of active bleeding. 7. Renal failure. On dialysis 8. Decubitus ulcer 9. Septic shock, patient is on Levophed titrating downward 10 distended abdomen secondary to non toxic megacolon Plan Continue all supportive care Continue feeding Antibiotic as per ID Monitor for active GI bleeding Campbell flush as needed for distended abdomen Consultation Date/Type/Reason Admit Date/Time Sep 27, 2017 at 21:00 Initial Consult Date 09/28/17 Type of Consultation: cardiology Referring Provider: PHILIPPE JUARES DO 24 HR Interval Summary Subjective hx not possible: pt non-verbal Exam/Review of Systems Vital Signs Vitals Vital Signs Date Time Temp Pulse Resp B/P Pulse Ox O2 Delivery O2 Flow Rate FiO2 10/06/17 12:00 76 10/06/17 09:00 15 116/70 96 Mechanical Ventilator 10/06/17 08:00 97.7 10/06/17 08:00 30 Intake and Output 10/05/17 10/05/17 10/06/17 15:00 23:00 07:00 Intake Total 1119.35 ml 585.00 ml 330 ml Output Total 6500 ml 20 ml Balance -5380.65 ml 565.00 ml 330 ml Exam Constitutional: alert, oriented, well developed Psych: nl mood/affect, no complaints Head: atraumatic, normocephalic Eyes: EOMI, PERRL, nl conjunctiva, nl lids, nl sclera ENMT: nl external ears & nose, nl lips & teeth, nl nasal mucosa & septum Neck: non-tender, supple Respiratory: clear to auscultation, normal air movement Cardiovascular: nl pulses, regular rate and rhythm Gastrointestinal: nl liver, spleen, non-tender, soft Musculoskeletal: nl extremities to inspection, nl gait and stance Extremities: normal pulses Neurological: JIG AND FIXTURE REPAIRER II-XII intact, nl mental status, nl speech, nl strength Skin: nl turgor, No rash or lesions Lymph: nl lymph nodes Results Result Diagram: 10/06/17 0345 10/06/17 0345 Results 24 hrs Laboratory Tests Test 10/05/17 18:10 10/05/17 20:17 10/06/17 00:50 10/06/17 03:45 Bedside Glucose 142 116 123 White Blood Count 11.9 #H Red Blood Count 3.07 L Hemoglobin 9.8 L Hematocrit 30.8 L Mean Corpuscular Volume 100.3 Mean Corpuscular Hemoglobin 31.9 Mean Corpuscular Hemoglobin Concent 31.8 L Red Cell Distribution Width 19.9 H Platelet Count 132 #L Mean Platelet Volume 12.9 H Neutrophils % 85.7 H Lymphocytes % 5.0 L Monocytes % 8.1 Eosinophils % 0.0 Basophils % 0.1 Nucleated Red Blood Cells % 0.5 H Neutrophils # 10.2 H Lymphocytes # 0.6 L Monocytes # 1.0 H Eosinophils # 0.0 Basophils # 0.0 Nucleated Red Blood Cells # 0.1 H Sodium Level 140 Potassium Level 4.5 Chloride Level 101 Carbon Dioxide Level 29 Anion Gap 15 Blood Urea Nitrogen 39 H Creatinine 1.81 H Glucose Level 124 Calcium Level 8.8 Phosphorus Level 5.0 H Magnesium Level 2.6 H Creatine Kinase < 20 L Test 10/06/17 06:33 10/06/17 08:19 10/06/17 13:50 Bedside Glucose 132 162 155 Medications Medications Current Medications Hydromorphone HCl (Dilaudid) 0.5 mg Q4H PRN IV PAIN Last administered on 17:00; Admin Dose 0.5 MG; Start 09/27/17 at 23:00 Midodrine (Proamatine) 10 mg TID@,,17 GTB Last administered on 10/06/17 13:41; Admin Dose 10 MG; Start 09/28/17 at 09:00 Ascorbic Acid (Vitamin C) 500 mg DAILY GTB Last administered on 10/06/17 08: 40; Admin Dose 500 MG; Start 09/28/17 at 09:00 Cholecalciferol (Vitamin D) 2,000 unit DAILY GTB Last administered on 10:26; Admin Dose 2,000 UNIT; Start 09/28/17 at 09:00 Digoxin (Digoxin) 0.125 mg DAILY GTB Last administered on 10/06/17 08:40; Admin Dose 0.125 MG; Start 09/28/17 at 09:00 Ferrous Sulfate (Feosol Liquid Cup) 300 mg DAILY GTB Last administered on 10/06 08:39; Admin Dose 300 MG; Start 09/28/17 at 09:00 Fluconazole (Diflucan) 100 mg DAILY GTB Last administered on 10/06/17 08:40; Admin Dose 100 MG; Start 09/28/17 at 09:00 Folic Acid (Folic Acid) 1 mg DAILY GTB Last administered on 10/06/17 08:40; Admin Dose 1 MG; Start 09/28/17 at 09:00 Acetaminophen/ Hydrocodone Bitart ([place] (5/325)) 1 tab DAILY GTB Last administered on 09/30/17 09:34; Admin Dose 1 TAB; Start 09/28/17 at 09:00; Status Future Hold Lactobacillus Acidophilus/ Rhamnosus (Culturelle) 1 cap BID GTB Last administered on 10/06/17 08:40; Admin Dose 1 CAP; Start 09/28/17 at 09:00 Sertraline HCl (Zoloft) 25 mg QHS GTB Last administered on 10/05/17 20:18; Admin Dose 25 MG; Start 09/28/17 at 21:00 Tramadol HCl (Ultram) 50 mg DAILY PRN GTB FOR WOUND CARE; Start 09/28/17 at 08 :00; Status Future Hold Tramadol HCl (Ultram) 50 mg Q8 GTB Last administered on 10/06/17 13:41; Admin Dose 50 MG; Start 09/28/17 at 14:00 Zolpidem Tartrate (Ambien) 5 mg QHS PRN GTB INSOMNIA; Start 09/28/17 at 08:00 Diagnostic Test (Pha) 1 ea 1 ea 02 XX Last administered on 09/29/17 01:05; Admin Dose 1 EA; Start 09/29/17 at 02:00 Meropenem/Sodium Chloride 50 ml @ 100 mls/hr Q12 IVPB Last administered on 08:39; Admin Dose 100 MLS/HR; Start 09/28/17 at 09:00 Colistimethate Sodium 75 mg/ Sodium Chloride 100 ml @ 200 mls/hr Q24H IVPB Last administered on 10/06/17 13:45; Admin Dose 200 MLS/HR; Start 09/28/17 at 14:45 Daptomycin 280 mg/ Sodium Chloride 100 ml @ 200 mls/hr Q48H IVPB Last administered on 10/04/17 16:47; Admin Dose 200 MLS/HR; Start 09/30/17 at 17: 00 Dextrose/Sodium Chloride (D5-NS) 1,000 ml @ 20 mls/hr Q24H IV Last administered on 10/05/17 19:37; Admin Dose 20 MLS/HR; Start 09/28/17 at 19:00 Insulin Aspart (Novolog Insulin Pen) NOVOLOG *MILD* ALGORITHM Q4 SC Last administered on 10/06/17 13:53; Admin Dose 1 UNIT; Start 09/29/17 at 09:00 Collagenase (Santyl) 1 applic DAILY TOP Last administered on 10/06/17 08:42; Admin Dose 1 APPLIC; Start 09/29/17 at 12:00 Acyclovir 400 mg 400 mg TID PO Last administered on 10/06/17 13:41; Admin Dose 400 MG; Start 09/29/17 at 21:00 Phenylephrine HCl/ Dextrose (Erwin-Syneph/D5W) 500 ml @ 37.5 mls/hr TITRATE IV Last administered on 09/30/17 15:01; Admin Dose 120 MLS/HR; Start 09/29/17 at 18:00 Docusate Sodium (Colace Liquid Cup) 100 mg BID GTB Last administered on 08:39; Admin Dose 100 MG; Start 09/30/17 at 21:00 Multivitamins/ Minerals (Theragran-M) 1 tab DAILY GTB Last administered on 08:40; Admin Dose 1 TAB; Start 09/30/17 at 10:00 Lansoprazole (Prevacid) 30 mg DAILY@06 GTB Last administered on 10/06/17 06: 57; Admin Dose 30 MG; Start 09/30/17 at 12:15 Hydrogen Peroxide (Hydrogen Peroxide) 1 applic BID TOP Last administered on 08:42; Admin Dose 1 APPLIC; Start 09/30/17 at 21:00 Heparin Sodium (Porcine) (Heparin (5000 Units/0.5 ml)) 5,000 unit BID SC Last administered on 10/06/17 08:42; Admin Dose 5,000 UNIT; Start 10/01/17 at 21: 00 Brimonidine Tartrate 1 drop 1 drop BID BOTH EYES Last administered on 08:40; Admin Dose 1 DROP; Start 10/03/17 at 21:00 Norepinephrine/ Dextrose (Levophed/D5W) 500 ml @ 1.87 mls/hr TITRATE IV Last administered on 10/04/17 05:58; Admin Dose 13.12 MLS/HR; Start 10/03/17 at 16 :30 Hydrocortisone (Solu-Cortef) 100 mg Q8 IV Last administered on 10/06/17 13:41 ; Admin Dose 100 MG; Start 10/04/17 at 14:00 Silver Sulfadiazine (Thermazene 1% 25 Gm) 1 applic DAILY TOP Last administered on 10/05/17 12:26; Admin Dose 1 APPLIC; Start 10/05/17 at 11:00 LIANNA BOWLING MD Oct 06, 2017 14:13
[2017-10-06] MEDS: DAPTOMYCIN 280 MG in SOD CHLORIDE 0.9% 100 ML IVPB SCH (16:46)
[2017-10-06] MEDS: DEXTROSE 5%-0.9% NACL 1,000 ML IV SCH (19:57)
[2017-10-06] MEDS: SERTRALINE 50 MG TAB GTB SCH (20:37)
[2017-10-07] VITALS (46 sets, daily range): BP systolic 90–122; BP diastolic 35–63; PULSE 44–109; RESP 12–19
[2017-10-07] MEDS: INSULIN ASPART [NOVOLOG] 3 ML PEN SC SCH ×6 (01:00→20:43)
[2017-10-07] MEDS: ACCU-CHEK XX SCH (01:47)
[2017-10-07] MEDS: LANSOPRAZOLE 30 MG CAP GTB SCH (06:08)
[2017-10-07] MEDS: traMADol 50 MG TAB GTB SCH ×3 (06:09→22:00)
[2017-10-07] MEDS: HYDROCORTISONE 100 MG INJ IV SCH ×2 (06:09→15:45)
[2017-10-07 06:51] LABS: ABNORMAL IP MESSAGE 1; BASOPHILS % 0.1 % (0.0-2.0); HEMATOCRIT 34.3 % (42.0-52.0); HEMOGLOBIN 10.8 g/dl (14.0-18.0); LYMPHOCYTES # 0.4 10^3/ul (0.8-2.9); LYMPHOCYTES % 4.3 % (15.0-51.0); MEAN CORPUSCULAR HEMOGLOBIN 31.4 pg (29.0-33.0); MEAN CORPUSCULAR HGB CONC 31.5 g/dl (32.0-37.0); MEAN CORPUSCULAR VOLUME 99.7 fl (82.0-101.0); MEAN PLATELET VOLUME 11.9 fl (7.4-10.4); MONOCYTE # 0.7 10^3/ul (0.3-0.9); NEUTROPHIL # 8.5 10^3/ul (1.6-7.5); NEUTROPHILS % 86.4 % (39.0-77.0); NUCLEATED RED BLOOD CELLS # 0.1 10^3/ul (0.0-0.0); NUCLEATED RED BLOOD CELLS% 1.1 /100WBC (0.0-0.0); PLATELET COUNT 109 10^3/UL (140-415); POSITIVE DIFF @See below; RED BLOOD COUNT 3.44 10^6/ul (4.70-6.10); RED CELL DISTRIBUTION WIDTH 20.4 % (11.5-14.5); WHITE BLOOD COUNT 9.9 10^3/ul (4.8-10.8)
[2017-10-07 07:14] LABS: CALCIUM 9.1 mg/dl (8.4-10.2); CREATININE 2.03 mg/dl (0.61-1.24); MAGNESIUM 2.9 mg/dl (1.7-2.5); PHOSPHORUS 5.5 mg/dl (2.5-4.9); POTASSIUM 5.4 mmol/L (3.5-5.1)
--- NOTE | 2017-10-07 08:33 | PN ---
Date/Time of Note Date/Time of Note DATE: 10/07/17 TIME: 08:32 Assessment/Plan VTE Prophylaxis VTE Prophylaxis Intervention: other Lines/Catheters IV Catheter Type (from Nrs): Central Line Central line still needed: Yes Urinary Cath still in place: No Assessment/Plan Chief Complaint/Hosp Course SUBJECTIVE: The patient remains critically ill in icu. Was weaned off Levophed. The patient remains lethargic, now retracts only to painful stimuli. No other acute events noted. last hd was 2 days ago cardiac strips were reviewed (frequent PVC's) no fever, chills, diaphoresis, melena, hematuria, new rash vent settings and imaging studies were reviewed OBJECTIVE: HEENT: Head is normocephalic. NECK: Supple. HEART: Regular rate. LUNGS: Show diminished breath sounds at the base. ABDOMEN: Soft, nontender to palpation. No rebound or guarding. EXTREMITIES: Positive for diffuse anasarca. DERMATOLOGIC: No rashes. MUSCULOSKELETAL: Positive wounds. NEUROLOGIC: The patient is obtunded. ASSESSMENT AND PLAN: 1. Septic shock, etiology is multifactorial secondary to pneumonia, underlying wounds. stable off pressors. Continue current antibiotic regimen and follow up with infectious disease. 2. Ventilator-dependent respiratory failure. Vent settings and ABG is reviewed. Continue to monitor. Follow up with pulmonary. 3. Right pseudoaneurysm, status post surgical repair. Continue local wound care. Follow up with vascular surgery. 4. Acute encephalopathy. Etiology is likely due to toxic metabolic. The patient has not had any significant improvement in mental status. CT scan was negative. We will place a neurology consult with Dr. Pérez for further evaluation. 5. Endstage renal disease. Plan for dialysis today for solute clearance and volume removal. 6. Volume overload secondary to congestive heart failure, acute kidney injury, capillary leak. Continue ultrafiltration with dialysis if patient remains hemodynamically stable. 7. Mineral bone disorder. Monitor calcium and phosphorus levels. 8. Hyperkalemia. We will dialyze patient with 2 potassium bath. 9. Hyponatremia. Continue dialysis on a 140 sodium bath. 10. Atrial fibrillation, rate controlled. Continue medical management. 11. Dysphagia, status post percutaneous endoscopic gastrostomy tube feeding. 12. Decubitus wound. Continue wound care. 13. Gastrointestinal and deep venous thrombosis prophylaxis. Problems: Exam/Review of Systems Vital Signs Vitals Vital Signs Date Time Temp Pulse Resp B/P Pulse Ox O2 Delivery O2 Flow Rate FiO2 10/07/17 07:00 78 110/45 95 10/07/17 06:00 19 Mechanical Ventilator 10/07/17 05:21 30 10/07/17 04:00 96.6 Intake and Output 10/06/17 10/06/17 10/07/17 15:00 23:00 07:00 Intake Total 230 ml 1130 ml 420 ml Output Total 0 ml 0 ml Balance 230 ml 1130 ml 420 ml Results Result Diagram: 10/07/17 0635 10/07/17 0635 Results 24 hrs Laboratory Tests Test 10/06/17 13:50 10/06/17 16:42 10/06/17 20:45 10/07/17 01:44 Bedside Glucose 155 140 138 143 Test 10/07/17 05:59 10/07/17 06:35 Bedside Glucose 144 White Blood Count 9.9 Red Blood Count 3.44 L Hemoglobin 10.8 L Hematocrit 34.3 L Mean Corpuscular Volume 99.7 Mean Corpuscular Hemoglobin 31.4 Mean Corpuscular Hemoglobin Concent 31.5 L Red Cell Distribution Width 20.4 H Platelet Count 109 L Mean Platelet Volume 11.9 H Neutrophils % 86.4 H Lymphocytes % 4.3 L Monocytes % 7.0 Eosinophils % 0.0 Basophils % 0.1 Nucleated Red Blood Cells % 1.1 H Neutrophils # 8.5 H Lymphocytes # 0.4 L Monocytes # 0.7 Eosinophils # 0.0 Basophils # 0.0 Nucleated Red Blood Cells # 0.1 H Sodium Level 139 Potassium Level 5.4 H Chloride Level 101 Carbon Dioxide Level 28 Anion Gap 15 Blood Urea Nitrogen 58 H Creatinine 2.03 H Glucose Level 131 Calcium Level 9.1 Phosphorus Level 5.5 H Magnesium Level 2.9 H Medications Medications Current Medications Hydromorphone HCl (Dilaudid) 0.5 mg Q4H PRN IV PAIN Last administered on 17:00; Admin Dose 0.5 MG; Start 09/27/17 at 23:00 Midodrine (Proamatine) 10 mg TID@,,17 GTB Last administered on 10/06/17 16:46; Admin Dose 10 MG; Start 09/28/17 at 09:00 Ascorbic Acid (Vitamin C) 500 mg DAILY GTB Last administered on 10/06/17 08: 40; Admin Dose 500 MG; Start 09/28/17 at 09:00 Cholecalciferol (Vitamin D) 2,000 unit DAILY GTB Last administered on 10:26; Admin Dose 2,000 UNIT; Start 09/28/17 at 09:00 Digoxin (Digoxin) 0.125 mg DAILY GTB Last administered on 10/06/17 08:40; Admin Dose 0.125 MG; Start 09/28/17 at 09:00 Ferrous Sulfate (Feosol Liquid Cup) 300 mg DAILY GTB Last administered on 10/06 08:39; Admin Dose 300 MG; Start 09/28/17 at 09:00 Fluconazole (Diflucan) 100 mg DAILY GTB Last administered on 10/06/17 08:40; Admin Dose 100 MG; Start 09/28/17 at 09:00 Folic Acid (Folic Acid) 1 mg DAILY GTB Last administered on 10/06/17 08:40; Admin Dose 1 MG; Start 09/28/17 at 09:00 Acetaminophen/ Hydrocodone Bitart ([place] (5/325)) 1 tab DAILY GTB Last administered on 09/30/17 09:34; Admin Dose 1 TAB; Start 09/28/17 at 09:00; Status Future Hold Lactobacillus Acidophilus/ Rhamnosus (Culturelle) 1 cap BID GTB Last administered on 10/06/17 20:37; Admin Dose 1 CAP; Start 09/28/17 at 09:00 Sertraline HCl (Zoloft) 25 mg QHS GTB Last administered on 10/06/17 20:37; Admin Dose 25 MG; Start 09/28/17 at 21:00 Tramadol HCl (Ultram) 50 mg DAILY PRN GTB FOR WOUND CARE; Start 09/28/17 at 08 :00; Status Future Hold Tramadol HCl (Ultram) 50 mg Q8 GTB Last administered on 10/07/17 06:09; Admin Dose 50 MG; Start 09/28/17 at 14:00 Zolpidem Tartrate (Ambien) 5 mg QHS PRN GTB INSOMNIA; Start 09/28/17 at 08:00 Diagnostic Test (Pha) 1 ea 1 ea 02 XX Last administered on 10/07/17 01:47; Admin Dose 1 EA; Start 09/29/17 at 02:00 Meropenem/Sodium Chloride 50 ml @ 100 mls/hr Q12 IVPB Last administered on 20:38; Admin Dose 100 MLS/HR; Start 09/28/17 at 09:00 Colistimethate Sodium 75 mg/ Sodium Chloride 100 ml @ 200 mls/hr Q24H IVPB Last administered on 10/06/17 13:45; Admin Dose 200 MLS/HR; Start 09/28/17 at 14:45 Daptomycin 280 mg/ Sodium Chloride 100 ml @ 200 mls/hr Q48H IVPB Last administered on 10/06/17 16:46; Admin Dose 200 MLS/HR; Start 09/30/17 at 17: 00 Dextrose/Sodium Chloride (D5-NS) 1,000 ml @ 20 mls/hr Q24H IV Last administered on 10/06/17 19:57; Admin Dose 20 MLS/HR; Start 09/28/17 at 19:00 Insulin Aspart (Novolog Insulin Pen) NOVOLOG *MILD* ALGORITHM Q4 SC Last administered on 10/07/17 06:02; Admin Dose 1 UNIT; Start 09/29/17 at 09:00 Collagenase (Santyl) 1 applic DAILY TOP Last administered on 10/06/17 08:42; Admin Dose 1 APPLIC; Start 09/29/17 at 12:00 Acyclovir (Zovirax) 400 mg TID PO Last administered on 10/06/17 20:39; Admin Dose 400 MG; Start 09/29/17 at 21:00 Docusate Sodium (Colace Liquid Cup) 100 mg BID GTB Last administered on 20:37; Admin Dose 100 MG; Start 09/30/17 at 21:00 Multivitamins/ Minerals (Theragran-M) 1 tab DAILY GTB Last administered on 08:40; Admin Dose 1 TAB; Start 09/30/17 at 10:00 Lansoprazole (Prevacid) 30 mg DAILY@06 GTB Last administered on 10/07/17 06: 08; Admin Dose 30 MG; Start 09/30/17 at 12:15 Hydrogen Peroxide (Hydrogen Peroxide) 1 applic BID TOP Last administered on 20:47; Admin Dose 1 APPLIC; Start 09/30/17 at 21:00 Heparin Sodium (Porcine) (Heparin (5000 Units/0.5 ml)) 5,000 unit BID SC Last administered on 10/06/17 20:42; Admin Dose 5,000 UNIT; Start 10/01/17 at 21: 00 Brimonidine Tartrate ([place] P 0.1%) 1 drop BID BOTH EYES Last administered on 10/06/17 20:37; Admin Dose 1 DROP; Start 10/03/17 at 21:00 Hydrocortisone (Solu-Cortef) 100 mg Q8 IV Last administered on 10/07/17 06:09 ; Admin Dose 100 MG; Start 10/04/17 at 14:00 Silver Sulfadiazine (Thermazene 1% 25 Gm) 1 applic DAILY TOP Last administered on 10/05/17 12:26; Admin Dose 1 APPLIC; Start 10/05/17 at 11:00 LIGIA MATAMOROS DO Oct 07, 2017 08:33
[2017-10-07] MEDS: HYDROGEN PEROXIDE 118 ML TOP SCH ×2 (09:00→20:43)
[2017-10-07] MEDS: SILVER SULFADIAZINE 1% 25 GM CR TOP SCH (09:00)
[2017-10-07] MEDS: COLLAGENASE 30 GM TUBE TOP SCH (09:00)
[2017-10-07] MEDS: FOLIC ACID 1 MG TAB GTB SCH (09:09)
[2017-10-07] MEDS: LACTOBACILLUS RHAMNOSUS CAP GTB SCH ×2 (09:09→20:42)
[2017-10-07] MEDS: MIDODRINE 5 MG TAB GTB SCH ×3 (09:10→17:37)
[2017-10-07] MEDS: DOCUSATE SODIUM 10 MG/ML (10ML CUP) GTB SCH ×2 (09:10→20:42)
[2017-10-07] MEDS: FLUCONAZOLE 100 MG TAB GTB SCH (09:10)
[2017-10-07] MEDS: MULTIVITAMINS/MINERALS TAB GTB SCH (09:10)
[2017-10-07] MEDS: ASCORBIC ACID 500 MG TAB GTB SCH (09:10)
[2017-10-07] MEDS: FERROUS SULFATE 60 MG/ML 5ML CUP GTB SCH (09:10)
[2017-10-07] MEDS: DIGOXIN 0.125 MG TAB GTB SCH (09:10)
[2017-10-07] MEDS: BRIMONIDINE 0.1% 5 ML OPH BOTH EYES SCH ×2 (09:11→20:42)
[2017-10-07] MEDS: CHOLECALCIFEROL 2,000 UNIT CAP GTB SCH (09:11)
[2017-10-07] MEDS: ACYCLOVIR 400 MG TAB PO SCH (09:11)
[2017-10-07] MEDS: MEROPENEM 500MG/50 ML (PMX) 50 ML IVPB SCH (09:11)
[2017-10-07] MEDS: HEPARIN 5,000 UNIT/0.5 ML VIAL SC SCH ×2 (09:50→20:45)
--- NOTE | 2017-10-07 10:16 | CONS ---
Date/Time of Note Date/Time of Note DATE: 10/07/17 TIME: 10:14 Consult Date/Type/Reason Admit Date/Time Sep 27, 2017 at 21:00 Initial Consult Date 09/28/17 Type of Consultation: cardiology Ordering Provider: PHILIPPE JUARES DO Subjective Cardiology follow up note S: D/ W staff and rhythm was reviewed. pt remains in Afib. his HR is under good control but pt also with frequent PVC and ventricular bigeminy still he remains lethargic and novnerbal now still on vent in ICU pt is off of levophed drip now O: General: Thin. s/p trach on vent. no acute distress HEENT: NC/AT. pupils are equal. round. NECK: s/p trach. . no stridor. CV: irregularly irregular. systolic murmur; no gallop or rubs. PULM: no wheezing . + rhonchi. GI: SOFT, NT, ND, no rebound or guarding vascular: R fem s/p surgery Extremity: increased B/L LE edema. no clubbing. neuro: lethargic Psych: calm and pleasant rectal: deferred : normal male Derm: With diffuse ecchymosis throughout the body. CXR reviewed. ECHO: 1. Normal left ventricular systolic function. Normal left ventricular cavity size. Moderate concentric left ventricular hypertrophy. Ejection fraction is visually estimated at 65 %. Abnormal Diastolic Function. 2. Aortic sclerosis without stenosis. Objective Vital Signs Date Time Temp Pulse Resp B/P Pulse Ox O2 Delivery O2 Flow Rate FiO2 10/07/17 08:00 71 10/07/17 07:00 110/45 95 10/07/17 06:00 19 Mechanical Ventilator 10/07/17 05:21 30 10/07/17 04:00 96.6 Intake and Output 10/06/17 10/06/17 10/07/17 14:59 22:59 06:59 Intake Total 230 ml 1090 ml 470 ml Output Total 0 ml 0 ml Balance 230 ml 1090 ml 470 ml Results/Medications Result Diagram: 10/07/17 0635 10/07/17 0635 Results 24 hrs Laboratory Tests Test 10/06/17 13:50 10/06/17 16:42 10/06/17 20:45 10/07/17 01:44 Bedside Glucose 155 140 138 143 Test 10/07/17 05:59 10/07/17 06:35 Bedside Glucose 144 White Blood Count 9.9 Red Blood Count 3.44 L Hemoglobin 10.8 L Hematocrit 34.3 L Mean Corpuscular Volume 99.7 Mean Corpuscular Hemoglobin 31.4 Mean Corpuscular Hemoglobin Concent 31.5 L Red Cell Distribution Width 20.4 H Platelet Count 109 L Mean Platelet Volume 11.9 H Neutrophils % 86.4 H Lymphocytes % 4.3 L Monocytes % 7.0 Eosinophils % 0.0 Basophils % 0.1 Nucleated Red Blood Cells % 1.1 H Neutrophils # 8.5 H Lymphocytes # 0.4 L Monocytes # 0.7 Eosinophils # 0.0 Basophils # 0.0 Nucleated Red Blood Cells # 0.1 H Sodium Level 139 Potassium Level 5.4 H Chloride Level 101 Carbon Dioxide Level 28 Anion Gap 15 Blood Urea Nitrogen 58 H Creatinine 2.03 H Glucose Level 131 Calcium Level 9.1 Phosphorus Level 5.5 H Magnesium Level 2.9 H Medications Current Medications Hydromorphone HCl (Dilaudid) 0.5 mg Q4H PRN IV PAIN Last administered on 17:00; Admin Dose 0.5 MG; Start 09/27/17 at 23:00 Midodrine (Proamatine) 10 mg TID@ GTB Last administered on 10/07/17 09:10; Admin Dose 10 MG; Start 09/28/17 at 09:00 Ascorbic Acid (Vitamin C) 500 mg DAILY GTB Last administered on 10/07/17 09: 10; Admin Dose 500 MG; Start 09/28/17 at 09:00 Cholecalciferol (Vitamin D) 2,000 unit DAILY GTB Last administered on 09:11; Admin Dose 2,000 UNIT; Start 09/28/17 at 09:00 Digoxin (Digoxin) 0.125 mg DAILY GTB Last administered on 10/07/17 09:10; Admin Dose 0.125 MG; Start 09/28/17 at 09:00 Ferrous Sulfate (Feosol Liquid Cup) 300 mg DAILY GTB Last administered on 10/07 09:10; Admin Dose 300 MG; Start 09/28/17 at 09:00 Fluconazole (Diflucan) 100 mg DAILY GTB Last administered on 10/07/17 09:10; Admin Dose 100 MG; Start 09/28/17 at 09:00 Folic Acid (Folic Acid) 1 mg DAILY GTB Last administered on 10/07/17 09:09; Admin Dose 1 MG; Start 09/28/17 at 09:00 Acetaminophen/ Hydrocodone Bitart ([place] (5/325)) 1 tab DAILY GTB Last administered on 09/30/17 09:34; Admin Dose 1 TAB; Start 09/28/17 at 09:00; Status Future Hold Lactobacillus Acidophilus/ Rhamnosus (Culturelle) 1 cap BID GTB Last administered on 10/07/17 09:09; Admin Dose 1 CAP; Start 09/28/17 at 09:00 Sertraline HCl (Zoloft) 25 mg QHS GTB Last administered on 10/06/17 20:37; Admin Dose 25 MG; Start 09/28/17 at 21:00 Tramadol HCl (Ultram) 50 mg DAILY PRN GTB FOR WOUND CARE; Start 09/28/17 at 08 :00; Status Future Hold Tramadol HCl (Ultram) 50 mg Q8 GTB Last administered on 10/07/17 06:09; Admin Dose 50 MG; Start 09/28/17 at 14:00 Zolpidem Tartrate (Ambien) 5 mg QHS PRN GTB INSOMNIA; Start 09/28/17 at 08:00 Diagnostic Test (Pha) 1 ea 1 ea 02 XX Last administered on 10/07/17 01:47; Admin Dose 1 EA; Start 09/29/17 at 02:00 Meropenem/Sodium Chloride 50 ml @ 100 mls/hr Q12 IVPB Last administered on 09:11; Admin Dose 100 MLS/HR; Start 09/28/17 at 09:00 Colistimethate Sodium 75 mg/ Sodium Chloride 100 ml @ 200 mls/hr Q24H IVPB Last administered on 10/06/17 13:45; Admin Dose 200 MLS/HR; Start 09/28/17 at 14:45 Daptomycin 280 mg/ Sodium Chloride 100 ml @ 200 mls/hr Q48H IVPB Last administered on 10/06/17 16:46; Admin Dose 200 MLS/HR; Start 09/30/17 at 17: 00 Dextrose/Sodium Chloride (D5-NS) 1,000 ml @ 20 mls/hr Q24H IV Last administered on 10/06/17 19:57; Admin Dose 20 MLS/HR; Start 09/28/17 at 19:00 Insulin Aspart (Novolog Insulin Pen) NOVOLOG *MILD* ALGORITHM Q4 SC Last administered on 10/07/17 06:02; Admin Dose 1 UNIT; Start 09/29/17 at 09:00 Collagenase (Santyl) 1 applic DAILY TOP Last administered on 10/06/17 08:42; Admin Dose 1 APPLIC; Start 09/29/17 at 12:00 Acyclovir (Zovirax) 400 mg TID PO Last administered on 10/07/17 09:11; Admin Dose 400 MG; Start 09/29/17 at 21:00 Docusate Sodium (Colace Liquid Cup) 100 mg BID GTB Last administered on 09:10; Admin Dose 100 MG; Start 09/30/17 at 21:00 Multivitamins/ Minerals (Theragran-M) 1 tab DAILY GTB Last administered on 09:10; Admin Dose 1 TAB; Start 09/30/17 at 10:00 Lansoprazole (Prevacid) 30 mg DAILY@06 GTB Last administered on 10/07/17 06: 08; Admin Dose 30 MG; Start 09/30/17 at 12:15 Hydrogen Peroxide (Hydrogen Peroxide) 1 applic BID TOP Last administered on 20:47; Admin Dose 1 APPLIC; Start 09/30/17 at 21:00 Heparin Sodium (Porcine) (Heparin (5000 Units/0.5 ml)) 5,000 unit BID SC Last administered on 10/07/17 09:50; Admin Dose 5,000 UNIT; Start 10/01/17 at 21: 00 Brimonidine Tartrate (Alphagan P 0.1%) 1 drop BID BOTH EYES Last administered on 10/07/17 09:11; Admin Dose 1 DROP; Start 10/03/17 at 21:00 Hydrocortisone (Solu-Cortef) 100 mg Q8 IV Last administered on 10/07/17 06:09 ; Admin Dose 100 MG; Start 10/04/17 at 14:00 Silver Sulfadiazine (Thermazene 1% 25 Gm) 1 applic DAILY TOP Last administered on 11/17/17at 12:26; Admin Dose 1 APPLIC; Start 10/05/17 at 11:00 Assessment/Plan Chief Complaint/Hosp Course 1. septic SHOCK: BP is better now and off of pressors. 2. Afib: persistent/ chronic now. 3. hypoxemic resp failure: s/p trach vent dependent now. 4. hx anemia and GI bleed: off of any anticoagulation 5. 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 s/p multiple infections 8. dysphagia: s/p PEG 9. encephalopathy: 10. fluid overload/ CHF/ anasarca: ACUTE on chronic due to fluid overload and diastolic failure. 11. Ventricular arrhythmia and PVC Recommendations: Vent support will be continued for now. Hemodialysis will be managed by nephrology team .correction of electrolytes with assistance of HD cont Heart rate control Transfusion as needed only Patient currently off of full anticoagulation due to concern about history of severe anemia as well as GI bleed and OB positive stool. Head CT done 10/02/17 did not show any acute CVA prognosis is poor but pt is still full code per family request. Continue with the ICU care. Thank you for his referral. I will continue to follow along with you. DIOR JEFFERSON MD [facility] Problems: DIOR JEFFERSON MD Oct 07, 2017 10:16
--- NOTE | 2017-10-07 10:46 | CONS ---
Date/Time of Note Date/Time of Note DATE: 10/07/17 TIME: 10:44 Assessment/Plan Assessment/Plan Additional Assessment/Plan Ventilator settings AC of 12, tidal volume 450, PEEP of 5, 30% FiO2. Assessment and recommendations; 1. Patient admitted for repair of right femoral artery pseudoaneurysm. 2. Hypotension with interval resolution. 3. Worsening enthesopathy. And dementia. 4. Anemia and thrombocytopenia. 5. Chronic renal failure, on hemodialysis. 6. Chronic respiratory failure which is ventilator dependent. Continue current supportive care. Consider stopping antibiotics. Transfer to rehab center. Prognosis is poor. Consultation Date/Type/Reason Admit Date/Time Sep 27, 2017 at 21:00 Initial Consult Date 09/28/17 Type of Consultation: Pulmonary/critical care Referring Provider: PHILIPPE JUARES DO 24 HR Interval Summary Free Text/Dictation Patient's condition remains unchanged. Now remains essentially unresponsive. Patient however has remained hemodynamically stable. General exam; elderly male, on ventilator via tracheostomy, unresponsive, currently in no distress. Exam/Review of Systems Vital Signs Vitals Vital Signs Date Time Temp Pulse Resp B/P Pulse Ox O2 Delivery O2 Flow Rate FiO2 10/07/17 08:00 30 10/07/17 08:00 71 10/07/17 07:00 110/45 95 10/07/17 06:00 19 Mechanical Ventilator 10/07/17 04:00 96.6 Intake and Output 10/06/17 10/06/17 10/07/17 15:00 23:00 07:00 Intake Total 230 ml 1130 ml 420 ml Output Total 0 ml 0 ml Balance 230 ml 1130 ml 420 ml Exam HEENT exam; supple neck, no JVD. No lymphadenopathy. Midline trachea. No thyromegaly. Tracheostomy in place. Patient is edentulous. Chest exam; diminished breath sounds bilaterally. S1-S2 audible, no murmurs. Regular rhythm. Abdomen exam; soft, no organomegaly. G-tube in place. Bowel sounds audible. Extremity exam; no peripheral edema. POCK[employer] exam; patient remains unresponsive. Results Result Diagram: 10/07/17 0635 10/07/17 0635 Results 24 hrs Laboratory Tests Test 10/06/17 13:50 10/06/17 16:42 10/06/17 20:45 10/07/17 01:44 Bedside Glucose 155 140 138 143 Test 10/07/17 05:59 10/07/17 06:35 Bedside Glucose 144 White Blood Count 9.9 Red Blood Count 3.44 L Hemoglobin 10.8 L Hematocrit 34.3 L Mean Corpuscular Volume 99.7 Mean Corpuscular Hemoglobin 31.4 Mean Corpuscular Hemoglobin Concent 31.5 L Red Cell Distribution Width 20.4 H Platelet Count 109 L Mean Platelet Volume 11.9 H Neutrophils % 86.4 H Lymphocytes % 4.3 L Monocytes % 7.0 Eosinophils % 0.0 Basophils % 0.1 Nucleated Red Blood Cells % 1.1 H Neutrophils # 8.5 H Lymphocytes # 0.4 L Monocytes # 0.7 Eosinophils # 0.0 Basophils # 0.0 Nucleated Red Blood Cells # 0.1 H Sodium Level 139 Potassium Level 5.4 H Chloride Level 101 Carbon Dioxide Level 28 Anion Gap 15 Blood Urea Nitrogen 58 H Creatinine 2.03 H Glucose Level 131 Calcium Level 9.1 Phosphorus Level 5.5 H Magnesium Level 2.9 H Medications Medications Current Medications Hydromorphone HCl (Dilaudid) 0.5 mg Q4H PRN IV PAIN Last administered on 17:00; Admin Dose 0.5 MG; Start 09/27/17 at 23:00 Midodrine (Proamatine) 10 mg TID@ GTB Last administered on 10/07/17 09:10; Admin Dose 10 MG; Start 09/28/17 at 09:00 Ascorbic Acid (Vitamin C) 500 mg DAILY GTB Last administered on 10/07/17 09: 10; Admin Dose 500 MG; Start 09/28/17 at 09:00 Cholecalciferol (Vitamin D) 2,000 unit DAILY GTB Last administered on 09:11; Admin Dose 2,000 UNIT; Start 09/28/17 at 09:00 Digoxin (Digoxin) 0.125 mg DAILY GTB Last administered on 10/07/17 09:10; Admin Dose 0.125 MG; Start 09/28/17 at 09:00 Ferrous Sulfate (Feosol Liquid Cup) 300 mg DAILY GTB Last administered on 10/07 09:10; Admin Dose 300 MG; Start 09/28/17 at 09:00 Fluconazole (Diflucan) 100 mg DAILY GTB Last administered on 10/07/17 09:10; Admin Dose 100 MG; Start 09/28/17 at 09:00 Folic Acid (Folic Acid) 1 mg DAILY GTB Last administered on 10/07/17 09:09; Admin Dose 1 MG; Start 09/28/17 at 09:00 Acetaminophen/ Hydrocodone Bitart ([place] (5/325)) 1 tab DAILY GTB Last administered on 09/30/17 09:34; Admin Dose 1 TAB; Start 09/28/17 at 09:00; Status Future Hold Lactobacillus Acidophilus/ Rhamnosus (Culturelle) 1 cap BID GTB Last administered on 10/07/17 09:09; Admin Dose 1 CAP; Start 09/28/17 at 09:00 Sertraline HCl (Zoloft) 25 mg QHS GTB Last administered on 10/06/17 20:37; Admin Dose 25 MG; Start 09/28/17 at 21:00 Tramadol HCl (Ultram) 50 mg DAILY PRN GTB FOR WOUND CARE; Start 09/28/17 at 08 :00; Status Future Hold Tramadol HCl (Ultram) 50 mg Q8 GTB Last administered on 10/07/17 06:09; Admin Dose 50 MG; Start 09/28/17 at 14:00 Zolpidem Tartrate (Ambien) 5 mg QHS PRN GTB INSOMNIA; Start 09/28/17 at 08:00 Diagnostic Test (Pha) 1 ea 1 ea 02 XX Last administered on 10/07/17 01:47; Admin Dose 1 EA; Start 09/29/17 at 02:00 Meropenem/Sodium Chloride 50 ml @ 100 mls/hr Q12 IVPB Last administered on 09:11; Admin Dose 100 MLS/HR; Start 09/28/17 at 09:00 Colistimethate Sodium 75 mg/ Sodium Chloride 100 ml @ 200 mls/hr Q24H IVPB Last administered on 10/06/17 13:45; Admin Dose 200 MLS/HR; Start 09/28/17 at 14:45 Daptomycin 280 mg/ Sodium Chloride 100 ml @ 200 mls/hr Q48H IVPB Last administered on 10/06/17 16:46; Admin Dose 200 MLS/HR; Start 09/30/17 at 17: 00 Dextrose/Sodium Chloride (D5-NS) 1,000 ml @ 20 mls/hr Q24H IV Last administered on 10/06/17 19:57; Admin Dose 20 MLS/HR; Start 09/28/17 at 19:00 Insulin Aspart (Novolog Insulin Pen) NOVOLOG *MILD* ALGORITHM Q4 SC Last administered on 10/07/17 06:02; Admin Dose 1 UNIT; Start 09/29/17 at 09:00 Collagenase (Santyl) 1 applic DAILY TOP Last administered on 10/06/17 08:42; Admin Dose 1 APPLIC; Start 09/29/17 at 12:00 Acyclovir (Zovirax) 400 mg TID PO Last administered on 10/07/17 09:11; Admin Dose 400 MG; Start 09/29/17 at 21:00 Docusate Sodium (Colace Liquid Cup) 100 mg BID GTB Last administered on 09:10; Admin Dose 100 MG; Start 09/30/17 at 21:00 Multivitamins/ Minerals (Theragran-M) 1 tab DAILY GTB Last administered on 09:10; Admin Dose 1 TAB; Start 09/30/17 at 10:00 Lansoprazole (Prevacid) 30 mg DAILY@06 GTB Last administered on 10/07/17 06: 08; Admin Dose 30 MG; Start 09/30/17 at 12:15 Hydrogen Peroxide (Hydrogen Peroxide) 1 applic BID TOP Last administered on 20:47; Admin Dose 1 APPLIC; Start 09/30/17 at 21:00 Heparin Sodium (Porcine) (Heparin (5000 Units/0.5 ml)) 5,000 unit BID SC Last administered on 10/07/17 09:50; Admin Dose 5,000 UNIT; Start 10/01/17 at 21: 00 Brimonidine Tartrate (Alphagan P 0.1%) 1 drop BID BOTH EYES Last administered on 10/07/17 09:11; Admin Dose 1 DROP; Start 10/03/17 at 21:00 Hydrocortisone (Solu-Cortef) 100 mg Q8 IV Last administered on 10/07/17 06:09 ; Admin Dose 100 MG; Start 10/04/17 at 14:00 Silver Sulfadiazine (Thermazene 1% 25 Gm) 1 applic DAILY TOP Last administered on 10/05/17t 12:26; Admin Dose 1 APPLIC; Start 10/05/17 at 11:00 DAKOTA SHELLEY Oct 07, 2017 10:46
--- NOTE | 2017-10-07 12:18 | CONS ---
Date/Time of Note Date/Time of Note DATE: 10/07/17 TIME: 12:14 Assessment/Plan Assessment/Plan Chief Complaint/Hosp Course ID PROGRESS NOTE CURRENT ABX: DAY # =>Daptomycin, Colistin IV, Diflucan, Merrem => Will DC ABX today and observe 24H INTERVAL SUMMARY * Encephalopathic, no response to verbal stimuli -> per notes poor prognosis * Afebrile, OFF PRESSORS, WBC normalized -> Pulmonary recommendations noted = concur with DC ABX * BRAIN Imagin. Moderate opacification of the bilateral sphenoid sinuses without coalescence of the mastoid air cells.5. Moderate opacification of the right sphenoid sinus. * 10/06/17 CXRIMPRESSION: * 1. Stable position of PermCath and tracheostomy. * 2. Cardiomegaly with bilateral interstitial opacities representing pulmonary edema or infection. * 3. Bibasilar air space opacities representing atelectasis or pneumonia. * 4. Bilateral pleural effusions, larger on the right. * 5. Aortic atherosclerotic calcifications. PHYSICAL EXAMINATION: GENERAL: 87 yo critically on chronically ill/debilitated M, non-communicative, encephalopathic, VSS, afebrile, NAD HEENT: Unremarkable NECK: Supple, trach midline CHEST: Equal chest rise bilaterally, without dyspnea on observation HEART: RRR ABDOMEN: Large, NT, Peg w/surrounding cellulitis : NL M, anuric EXT: Warm, BUEXT ecchymosis w/edema R>L, BLEXT generalized edema, warm SKIN: No diaphoresis, multiple areas of ecchymosis, decubs - Right thigh DSG ID ASSESSMENT: 87 yo M PMHx dementia, HTN, HLD, DMT2, ESRD-HD admit [facility] ICU: 1. Septic shock. * 09/28/17 BCx (-) * Anuric, not able to obtain sample for cx 2. Right femoral pseudoaneurysm repair, status post right femoral pseudoaneurysm repair. 3. HCAP vs ASP PNA w/bilateral pleural effusions and opacification ILD, pulm edema / ATX 4. Multiple chronic wounds * Wound Cx: Dleacruz => ACBA, VRE, KP-ESBL, PSAR * Sacral coccygeal osteomyelitis, status post debridement. 5. G-tube site cellulitis. 6. Nontoxic megacolon. 7. Resolving right upper back rash, remains on empiric acyclovir. 8. Failure to thrive. 9. Endstage renal disease. 10. Acute on chronic encephalopathy. 11. Bilateral sinus disease (- )MRSA ABX ALLERGIES: None to ABX INVASIVES: : Trach, PEG, right subclavian Perm-A-Cath and right upper extremity PICC line. CURRENT ABX: =>Daptomycin, Colistin IV, Diflucan, Merrem => Will DC ABX today and observe ID RECOMMENDATIONS/PLAN: 1. Afebrile, OFF PRESSORS, WBC normalized -> Pulmonary recommendations noted = concur with DC ABX * => Will DC ABX today and observe OFF ABX 2. Stable for Delacruz TNS Eval -> ID team consultants will continue to follow . Problems: Consultation Date/Type/Reason Admit Date/Time Sep 27, 2017 at 21:00 Initial Consult Date 10/05/17 Referring Provider: PHILIPPE JUARES DO Exam/Review of Systems Vital Signs Vitals Vital Signs Date Time Temp Pulse Resp B/P Pulse Ox O2 Delivery O2 Flow Rate FiO2 10/07/17 08:00 30 10/07/17 08:00 71 10/07/17 07:00 110/45 95 10/07/17 06:00 19 Mechanical Ventilator 10/07/17 04:00 96.6 Intake and Output 10/06/17 10/06/17 10/07/17 15:00 23:00 07:00 Intake Total 230 ml 1130 ml 420 ml Output Total 0 ml 0 ml Balance 230 ml 1130 ml 420 ml Results Result Diagram: 10/07/17 0635 10/07/17 0635 Results 24 hrs Laboratory Tests Test 10/06/17 13:50 10/06/17 16:42 10/06/17 20:45 10/07/17 01:44 Bedside Glucose 155 140 138 143 Test 10/07/17 05:59 10/07/17 06:35 10/07/17 12:08 Bedside Glucose 144 156 White Blood Count 9.9 Red Blood Count 3.44 L Hemoglobin 10.8 L Hematocrit 34.3 L Mean Corpuscular Volume 99.7 Mean Corpuscular Hemoglobin 31.4 Mean Corpuscular Hemoglobin Concent 31.5 L Red Cell Distribution Width 20.4 H Platelet Count 109 L Mean Platelet Volume 11.9 H Neutrophils % 86.4 H Lymphocytes % 4.3 L Monocytes % 7.0 Eosinophils % 0.0 Basophils % 0.1 Nucleated Red Blood Cells % 1.1 H Neutrophils # 8.5 H Lymphocytes # 0.4 L Monocytes # 0.7 Eosinophils # 0.0 Basophils # 0.0 Nucleated Red Blood Cells # 0.1 H Sodium Level 139 Potassium Level 5.4 H Chloride Level 101 Carbon Dioxide Level 28 Anion Gap 15 Blood Urea Nitrogen 58 H Creatinine 2.03 H Glucose Level 131 Calcium Level 9.1 Phosphorus Level 5.5 H Magnesium Level 2.9 H Medications Medications Current Medications Hydromorphone HCl (Dilaudid) 0.5 mg Q4H PRN IV PAIN Last administered on 17:00; Admin Dose 0.5 MG; Start 09/27/17 at 23:00 Midodrine (Proamatine) 10 mg TID@ GTB Last administered on 10/07/17 09:10; Admin Dose 10 MG; Start 09/28/17 at 09:00 Ascorbic Acid (Vitamin C) 500 mg DAILY GTB Last administered on 10/07/17 09: 10; Admin Dose 500 MG; Start 09/28/17 at 09:00 Cholecalciferol (Vitamin D) 2,000 unit DAILY GTB Last administered on 09:11; Admin Dose 2,000 UNIT; Start 09/28/17 at 09:00 Digoxin (Digoxin) 0.125 mg DAILY GTB Last administered on 10/07/17 09:10; Admin Dose 0.125 MG; Start 09/28/17 at 09:00 Ferrous Sulfate (Feosol Liquid Cup) 300 mg DAILY GTB Last administered on 10/07 09:10; Admin Dose 300 MG; Start 09/28/17 at 09:00 Fluconazole (Diflucan) 100 mg DAILY GTB Last administered on 10/07/17 09:10; Admin Dose 100 MG; Start 09/28/17 at 09:00 Folic Acid (Folic Acid) 1 mg DAILY GTB Last administered on 10/07/17 09:09; Admin Dose 1 MG; Start 09/28/17 at 09:00 Acetaminophen/ Hydrocodone Bitart ([place] (5/325)) 1 tab DAILY GTB Last administered on 09/30/17 09:34; Admin Dose 1 TAB; Start 09/28/17 at 09:00; Status Future Hold Lactobacillus Acidophilus/ Rhamnosus (Culturelle) 1 cap BID GTB Last administered on 10/07/17 09:09; Admin Dose 1 CAP; Start 09/28/17 at 09:00 Sertraline HCl (Zoloft) 25 mg QHS GTB Last administered on 10/06/17 20:37; Admin Dose 25 MG; Start 09/28/17 at 21:00 Tramadol HCl (Ultram) 50 mg DAILY PRN GTB FOR WOUND CARE; Start 09/28/17 at 08 :00; Status Future Hold Tramadol HCl (Ultram) 50 mg Q8 GTB Last administered on 10/07/17 06:09; Admin Dose 50 MG; Start 09/28/17 at 14:00 Zolpidem Tartrate (Ambien) 5 mg QHS PRN GTB INSOMNIA; Start 09/28/17 at 08:00 Diagnostic Test (Pha) 1 ea 1 ea 02 XX Last administered on 10/07/17 01:47; Admin Dose 1 EA; Start 09/29/17 at 02:00 Meropenem/Sodium Chloride 50 ml @ 100 mls/hr Q12 IVPB Last administered on 09:11; Admin Dose 100 MLS/HR; Start 09/28/17 at 09:00 Colistimethate Sodium 75 mg/ Sodium Chloride 100 ml @ 200 mls/hr Q24H IVPB Last administered on 10/06/17 13:45; Admin Dose 200 MLS/HR; Start 09/28/17 at 14:45 Daptomycin 280 mg/ Sodium Chloride 100 ml @ 200 mls/hr Q48H IVPB Last administered on 10/06/17 16:46; Admin Dose 200 MLS/HR; Start 09/30/17 at 17: 00 Dextrose/Sodium Chloride (D5-NS) 1,000 ml @ 20 mls/hr Q24H IV Last administered on 10/06/17 19:57; Admin Dose 20 MLS/HR; Start 09/28/17 at 19:00 Insulin Aspart (Novolog Insulin Pen) NOVOLOG *MILD* ALGORITHM Q4 SC Last administered on 10/07/17 06:02; Admin Dose 1 UNIT; Start 09/29/17 at 09:00 Collagenase (Santyl) 1 applic DAILY TOP Last administered on 10/06/17 08:42; Admin Dose 1 APPLIC; Start 09/29/17 at 12:00 Acyclovir (Zovirax) 400 mg TID PO Last administered on 10/07/17 09:11; Admin Dose 400 MG; Start 09/29/17 at 21:00 Docusate Sodium (Colace Liquid Cup) 100 mg BID GTB Last administered on 09:10; Admin Dose 100 MG; Start 09/30/17 at 21:00 Multivitamins/ Minerals (Theragran-M) 1 tab DAILY GTB Last administered on 09:10; Admin Dose 1 TAB; Start 09/30/17 at 10:00 Lansoprazole (Prevacid) 30 mg DAILY@06 GTB Last administered on 10/07/17 06: 08; Admin Dose 30 MG; Start 09/30/17 at 12:15 Hydrogen Peroxide (Hydrogen Peroxide) 1 applic BID TOP Last administered on 20:47; Admin Dose 1 APPLIC; Start 09/30/17 at 21:00 Heparin Sodium (Porcine) (Heparin (5000 Units/0.5 ml)) 5,000 unit BID SC Last administered on 10/07/17 09:50; Admin Dose 5,000 UNIT; Start 10/01/17 at 21: 00 Brimonidine Tartrate (Alphagan P 0.1%) 1 drop BID BOTH EYES Last administered on 10/07/17 09:11; Admin Dose 1 DROP; Start 10/03/17 at 21:00 Hydrocortisone (Solu-Cortef) 100 mg Q8 IV Last administered on 10/07/17 06:09 ; Admin Dose 100 MG; Start 10/04/17 at 14:00 Silver Sulfadiazine (Thermazene 1% 25 Gm) 1 applic DAILY TOP Last administered on 10/05/17 12:26; Admin Dose 1 APPLIC; Start 10/05/17 at 11:00 NURYS FLOREZ NP Oct 07, 2017 12:18
--- NOTE | 2017-10-07 17:50 | PN ---
Date/Time of Note Date/Time of Note DATE: 10/07/17 TIME: 17:49 Assessment/Plan Lines/Catheters IV Catheter Type (from [facility]): Central Line [place] in Place (from [facility]): No Assessment/Plan Chief Complaint/Hosp Course 1. Hypotension, sepsis -supportive -judicious fluids 2. Sacral & left trochanter pressure ulcers: -debridement prn -local care -frequent turning and off-loading -low air loss mattress -vitamin c -short term zinc -optimize nutrition 3. 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 End-stage renal disease -HD per renal -avoid/limit nephrotoxic meds -judicious fluids -renally dose meds 5. Anemia: no acute bleed noted -closely monitor surgical site -transfuse as needed 6. Atrial fibrillation -rate control -lyte optimization -cards optimization 7. Dysphagia with feeding tube: on tube feeds -cont tf with aspiration precautions 8. Leukocytosis: afebrile -monitor -further workup if persistent 9. Thrombocytosis -supportive 10. Hypoalbuminemia: likely multifactorial -optimize nutrition -medical management of inflammation/infection 11. Electrolyte imbalance -optimize lytes and monitor 12. Ventilator dependent respiratory failure -per pulm -pulm toilet -respiratory treatments Thank you, Problems: Subjective 24 Hr Interval Summary Continues in ICU. Off pressor. HD. Leukocytosis. No fevers, congested cough, v/ d. AFib, rate controlled. Non responsive. Exam/Review of Systems Vital Signs Vitals Vital Signs Date Time Temp Pulse Resp B/P Pulse Ox O2 Delivery O2 Flow Rate FiO2 10/07/17 17:23 88 14 98 30 10/07/17 12:00 115/42 10/07/17 11:00 97.4 10/07/17 06:00 Mechanical Ventilator Intake and Output 10/06/17 10/06/17 10/07/17 15:00 23:00 07:00 Intake Total 230 ml 1130 ml 420 ml Output Total 0 ml 0 ml Balance 230 ml 1130 ml 420 ml Exam Free Text/Dictation Constitutional: Not following commands, ventilated Psych: lethargic, non responsive Head: atraumatic, normocephalic Eyes: nl lids, nl sclera ENMT: mucosa pink and moist, nl nasal mucosa & septum Neck: non-tender, other (trach-vent), supple Respiratory: diminished breath sounds, No labored breathing Cardiovascular: irregular rhythm, other (afib) Gastrointestinal: non-tender, other (peg), soft Genitourinary - Male: nl penis, nl scrotum Musculoskeletal: nl extremities to inspection, swelling improved Extremities: cap refill 2 s Neurological: No nl speech, No nl strength (gen weakness) Skin: Femoral incision with dressing, sacral and left troch pressure ulcers Lymph: No nl lymph nodes Results Result Diagram: 10/07/17 0635 10/07/17 0635 CORA MATAMOROS MD Oct 07, 2017 17:50
[2017-10-07] MEDS: DEXTROSE 5%-0.9% NACL 1,000 ML IV SCH (19:00)
--- NOTE | 2017-10-07 19:43 | CONS ---
Date/Time of Note Date/Time of Note DATE: 10/07/17 TIME: 19:40 Assessment/Plan Assessment/Plan Additional Assessment/Plan Additional Assessment/Plan 1. Repair of pseudoaneurysm right femoral artery 2. Shock resolved this and is off pressor support 3. Nontoxic megacolon resolved 4. Dysphagia status post PEG, no evidence of cellulitis 5. Vent dependent respiratory failure 6. Anemia no evidence of active bleeding. 7. Renal failure. On dialysis 8. Decubitus ulcer 9. Septic shock, 10 distended abdomen secondary to non toxic megacolon Plan Continue all supportive care Continue feeding Antibiotic as per ID Monitor for active GI bleeding Campbell flush as needed for distended abdomen We can stop tramadol and see with the patient is waking up on not Consultation Date/Type/Reason Admit Date/Time Sep 27, 2017 at 21:00 Initial Consult Date 09/28/17 Referring Provider: PHILIPPE JUARES DO 24 HR Interval Summary Free Text/Dictation Patient is lethargic not communicating Subjective hx not possible: pt non-verbal Exam/Review of Systems Vital Signs Vitals Vital Signs Date Time Temp Pulse Resp B/P Pulse Ox O2 Delivery O2 Flow Rate FiO2 10/07/17 18:00 79 108/40 93 10/07/17 17:23 14 30 10/07/17 17:00 97.3 10/07/17 06:00 Mechanical Ventilator Intake and Output 10/06/17 10/06/17 10/07/17 15:00 23:00 07:00 Intake Total 230 ml 1130 ml 420 ml Output Total 0 ml 0 ml Balance 230 ml 1130 ml 420 ml Exam Respiratory: other (Is on vent) Cardiovascular: nl pulses, regular rate and rhythm Gastrointestinal: distended, non-tender, soft Extremities: edema Neurological: lethargic Results Result Diagram: 10/07/17 0635 10/07/17 0635 Results 24 hrs Laboratory Tests Test 10/06/17 20:45 10/07/17 01:44 10/07/17 05:59 10/07/17 06:35 Bedside Glucose 138 143 144 White Blood Count 9.9 Red Blood Count 3.44 L Hemoglobin 10.8 L Hematocrit 34.3 L Mean Corpuscular Volume 99.7 Mean Corpuscular Hemoglobin 31.4 Mean Corpuscular Hemoglobin Concent 31.5 L Red Cell Distribution Width 20.4 H Platelet Count 109 L Mean Platelet Volume 11.9 H Neutrophils % 86.4 H Lymphocytes % 4.3 L Monocytes % 7.0 Eosinophils % 0.0 Basophils % 0.1 Nucleated Red Blood Cells % 1.1 H Neutrophils # 8.5 H Lymphocytes # 0.4 L Monocytes # 0.7 Eosinophils # 0.0 Basophils # 0.0 Nucleated Red Blood Cells # 0.1 H Sodium Level 139 Potassium Level 5.4 H Chloride Level 101 Carbon Dioxide Level 28 Anion Gap 15 Blood Urea Nitrogen 58 H Creatinine 2.03 H Glucose Level 131 Calcium Level 9.1 Phosphorus Level 5.5 H Magnesium Level 2.9 H Test 10/07/17 12:08 10/07/17 17:35 Bedside Glucose 156 130 Medications Medications Current Medications Hydromorphone HCl (Dilaudid) 0.5 mg Q4H PRN IV PAIN Last administered on 17:00; Admin Dose 0.5 MG; Start 09/27/17 at 23:00 Midodrine (Proamatine) 10 mg TID@ GTB Last administered on 10/07/17 17:37; Admin Dose 10 MG; Start 09/28/17 at 09:00 Ascorbic Acid (Vitamin C) 500 mg DAILY GTB Last administered on 10/07/17 09: 10; Admin Dose 500 MG; Start 09/28/17 at 09:00 Cholecalciferol (Vitamin D) 2,000 unit DAILY GTB Last administered on 09:11; Admin Dose 2,000 UNIT; Start 09/28/17 at 09:00 Digoxin (Digoxin) 0.125 mg DAILY GTB Last administered on 10/07/17 09:10; Admin Dose 0.125 MG; Start 09/28/17 at 09:00 Ferrous Sulfate (Feosol Liquid Cup) 300 mg DAILY GTB Last administered on 10/07 09:10; Admin Dose 300 MG; Start 09/28/17 at 09:00 Folic Acid (Folic Acid) 1 mg DAILY GTB Last administered on 10/07/17 09:09; Admin Dose 1 MG; Start 09/28/17 at 09:00 Acetaminophen/ Hydrocodone Bitart ([place] (5/325)) 1 tab DAILY GTB Last administered on 09/30/17 09:34; Admin Dose 1 TAB; Start 09/28/17 at 09:00; Status Future Hold Lactobacillus Acidophilus/ Rhamnosus (Culturelle) 1 cap BID GTB Last administered on 10/07/17 09:09; Admin Dose 1 CAP; Start 09/28/17 at 09:00 Sertraline HCl (Zoloft) 25 mg QHS GTB Last administered on 10/06/17 20:37; Admin Dose 25 MG; Start 09/28/17 at 21:00 Tramadol HCl (Ultram) 50 mg DAILY PRN GTB FOR WOUND CARE; Start 09/28/17 at 08 :00; Status Future Hold Tramadol HCl (Ultram) 50 mg Q8 GTB Last administered on 10/07/17 06:09; Admin Dose 50 MG; Start 09/28/17 at 14:00 Zolpidem Tartrate (Ambien) 5 mg QHS PRN GTB INSOMNIA; Start 09/28/17 at 08:00 Diagnostic Test (Pha) 1 ea 1 ea 02 XX Last administered on 10/07/17 01:47; Admin Dose 1 EA; Start 09/29/17 at 02:00 Dextrose/Sodium Chloride (D5-NS) 1,000 ml @ 20 mls/hr Q24H IV Last administered on 10/06/17 19:57; Admin Dose 20 MLS/HR; Start 09/28/17 at 19:00 Insulin Aspart (Novolog Insulin Pen) NOVOLOG *MILD* ALGORITHM Q4 SC Last administered on 10/07/17 12:42; Admin Dose 1 UNIT; Start 09/29/17 at 09:00 Collagenase (Santyl) 1 applic DAILY TOP Last administered on 10/06/17 08:42; Admin Dose 1 APPLIC; Start 09/29/17 at 12:00 Docusate Sodium (Colace Liquid Cup) 100 mg BID GTB Last administered on 09:10; Admin Dose 100 MG; Start 09/30/17 at 21:00 Multivitamins/ Minerals (Theragran-M) 1 tab DAILY GTB Last administered on 09:10; Admin Dose 1 TAB; Start 09/30/17 at 10:00 Lansoprazole (Prevacid) 30 mg DAILY@06 GTB Last administered on 10/07/17 06: 08; Admin Dose 30 MG; Start 09/30/17 at 12:15 Hydrogen Peroxide (Hydrogen Peroxide) 1 applic BID TOP Last administered on 20:47; Admin Dose 1 APPLIC; Start 09/30/17 at 21:00 Heparin Sodium (Porcine) (Heparin (5000 Units/0.5 ml)) 5,000 unit BID SC Last administered on 10/07/17 09:50; Admin Dose 5,000 UNIT; Start 10/01/17 at 21: 00 Brimonidine Tartrate (Alphagan P 0.1%) 1 drop BID BOTH EYES Last administered on 10/07/17 09:11; Admin Dose 1 DROP; Start 10/03/17 at 21:00 Hydrocortisone (Solu-Cortef) 100 mg Q8 IV Last administered on 10/07/17 15:45 ; Admin Dose 100 MG; Start 10/04/17 at 14:00 Silver Sulfadiazine (Thermazene 1% 25 Gm) 1 applic DAILY TOP Last administered on 10/05/17 12:26; Admin Dose 1 APPLIC; Start 10/05/17 at 11:00 LIANNA BOWLING MD Oct 07, 2017 19:43
[2017-10-07] MEDS: SERTRALINE 50 MG TAB GTB SCH ×2 (20:42→21:00)
[2017-10-08] VITALS (33 sets, daily range): BP systolic 92–130; BP diastolic 39–77; PULSE 34–120; RESP 12–20
[2017-10-08] MEDS: HYDROCORTISONE 100 MG INJ IV SCH ×4 (00:07→21:44)
[2017-10-08] MEDS: INSULIN ASPART [NOVOLOG] 3 ML PEN SC SCH ×6 (01:00→21:00)
[2017-10-08] MEDS: ACCU-CHEK XX SCH (01:31)
[2017-10-08] MEDS: traMADol 50 MG TAB GTB SCH ×3 (05:12→21:44)
[2017-10-08] MEDS: LANSOPRAZOLE 30 MG CAP GTB SCH (05:12)
[2017-10-08] MEDS: FERROUS SULFATE 60 MG/ML 5ML CUP GTB SCH (08:10)
[2017-10-08] MEDS: LACTOBACILLUS RHAMNOSUS CAP GTB SCH (08:10)
[2017-10-08] MEDS: BRIMONIDINE 0.1% 5 ML OPH BOTH EYES SCH ×2 (08:10→21:43)
[2017-10-08] MEDS: DOCUSATE SODIUM 10 MG/ML (10ML CUP) GTB SCH ×2 (08:10→21:44)
[2017-10-08] MEDS: CHOLECALCIFEROL 2,000 UNIT CAP GTB SCH (08:10)
[2017-10-08] MEDS: FOLIC ACID 1 MG TAB GTB SCH (08:11)
[2017-10-08] MEDS: DIGOXIN 0.125 MG TAB GTB SCH (08:11)
[2017-10-08] MEDS: MULTIVITAMINS/MINERALS TAB GTB SCH (08:11)
[2017-10-08] MEDS: ASCORBIC ACID 500 MG TAB GTB SCH (08:11)
[2017-10-08] MEDS: MIDODRINE 5 MG TAB GTB SCH ×3 (08:12→17:25)
[2017-10-08] MEDS: HEPARIN 5,000 UNIT/0.5 ML VIAL SC SCH ×2 (08:16→21:48)
[2017-10-08] MEDS: COLLAGENASE 30 GM TUBE TOP SCH (08:23)
[2017-10-08] MEDS: HYDROGEN PEROXIDE 118 ML TOP SCH ×2 (08:24→21:45)
[2017-10-08] MEDS: SILVER SULFADIAZINE 1% 25 GM CR TOP SCH (08:24)
--- NOTE | 2017-10-08 09:08 | PN ---
DATE: 10/08/2017 SUBJECTIVE: The patient remains critically ill. The patient has been weaned off pressor support. However, continues to be obtunded without any significant clinical improvement. Please note I spoke with the patient's son at bedside. He was aware of his father's clinical decline. No other events noted. OBJECTIVE: VITAL SIGNS: Blood pressure is 121/59, respirations 20, pulse 100, temperature 98.3. HEENT: Head is normocephalic. NECK: Supple. HEART: Regular rate. LUNGS: Show diminished breath sounds at the base. ABDOMEN: Soft, nontender to palpation. No rebound or guarding. EXTREMITIES: Negative for clubbing, cyanosis, positive edema, diffuse anasarca. DERMATOLOGIC: No rashes. MUSCULOSKELETAL: No joint effusions. NEUROLOGIC: No change in exam. MEDICATIONS: The patient's medications have been reviewed. LABORATORY DATA: From 10/08/2017 is currently pending. ASSESSMENT AND PLAN: 1. Septic shock. Etiology is multifactorial secondary to pneumonia, underlying wounds. The patien t has been weaned off pressors. Continue current antibiotic regimen. Follow up with infectious dis ease. 2. Ventilatory dependent respiratory failure. Vent settings and ABG has been reviewed. Continue t o monitor. Follow up with pulmonary. 3. Right pseudoaneurysm status post surgical repair. Continue local wound care. Follow up with va scular surgery. 4. Acute encephalopathy. Etiology is toxic metabolic. The patient's CT scan was negative. Mental status has not improved. Appreciate neurology's evaluation. 5. End-stage renal disease. Plan for hemodialysis today for solute clearance and volume removal. 6. Volume overload secondary to congestive heart failure, acute kidney injury, capillary leak. Con tinue ultrafiltration dialysis. The patient remains hemodynamically stable. 7. Mineral bone disorder, monitor calcium and phosphorus levels. 8. Hypokalemia. Continue dialysis on a low potassium bath. 9. Hyponatremia. We will continue hemodialysis on a 140 sodium bath. 10. Atrial fibrillation, rate controlled. Continue medical management. 11. percutaneous endoscopic gastrostomy tube feeding. 12. Decubitus wound. Continue wound care. 13. Gastrointestinal and deep venous thrombosis prophylaxis. DISPOSITION: Anticipate family discussion regarding overall goals of care and code status. Dictated By: PHILIPPE WILSON/NORM Conf#: [id number] [facility]#: [id number]
--- NOTE | 2017-10-08 09:10 | CONS ---
Date/Time of Note Date/Time of Note DATE: 10/08/17 TIME: 09:09 Consult Date/Type/Reason Admit Date/Time Sep 27, 2017 at 21:00 Initial Consult Date 09/28/17 Type of Consultation: Pulmonary Ordering Provider: PHILIPPE JUARES DO Subjective Patient remains somnolent on mechanical ventilation. Continues tube feeding. Neurologically unchanged. Objective Vital Signs Date Time Temp Pulse Resp B/P Pulse Ox O2 Delivery O2 Flow Rate FiO2 10/08/17 06:30 108 96 10/08/17 06:00 121/59 Mechanical Ventilator 10/08/17 05:18 12 30 10/08/17 04:00 98.3 Intake and Output 10/07/17 10/07/17 10/08/17 14:59 22:59 06:59 Intake Total 500 ml 780 ml 480 ml Output Total 2500 ml 0 ml Balance -2000 ml 780 ml 480 ml Exam PHYSICAL EXAMINATION GENERAL: Chronically ill-appearing gentleman on mechanical ventilation VITAL SIGNS: see below. HEENT: Pupils sluggish. CARDIAC: S1, S2, 1/6 systolic ejection murmur CHEST: Diminished air entry bilaterally. ABDOMEN: Mildly distended. Bowel sounds present no guarding or rebound EXTREMITIES: No cyanosis, clubbing edema +1 NEUROLOGIC: Unable to assess. Results/Medications Result Diagram: 10/07/17 0635 10/07/17 0635 Results 24 hrs Laboratory Tests Test 10/07/17 12:08 10/07/17 17:35 10/07/17 20:39 10/08/17 01:30 Bedside Glucose 156 130 135 142 Test 10/08/17 05:08 10/08/17 08:17 Bedside Glucose 134 155 Medications Current Medications Hydromorphone HCl (Dilaudid) 0.5 mg Q4H PRN IV PAIN Last administered on 17:00; Admin Dose 0.5 MG; Start 09/27/17 at 23:00 Midodrine (Proamatine) 10 mg TID@,, GTB Last administered on 10/08/17 08:12; Admin Dose 10 MG; Start 09/28/17 at 09:00 Ascorbic Acid (Vitamin C) 500 mg DAILY GTB Last administered on 10/08/17 08: 11; Admin Dose 500 MG; Start 09/28/17 at 09:00 Cholecalciferol (Vitamin D) 2,000 unit DAILY GTB Last administered on 08:10; Admin Dose 2,000 UNIT; Start 09/28/17 at 09:00 Digoxin (Digoxin) 0.125 mg DAILY GTB Last administered on 10/08/17 08:11; Admin Dose 0.125 MG; Start 09/28/17 at 09:00 Ferrous Sulfate (Feosol Liquid Cup) 300 mg DAILY GTB Last administered on 10/08 08:10; Admin Dose 300 MG; Start 09/28/17 at 09:00 Folic Acid (Folic Acid) 1 mg DAILY GTB Last administered on 10/08/17 08:11; Admin Dose 1 MG; Start 09/28/17 at 09:00 Acetaminophen/ Hydrocodone Bitart ([place] (5/325)) 1 tab DAILY GTB Last administered on 09/30/17 09:34; Admin Dose 1 TAB; Start 09/28/17 at 09:00; Status Future Hold Lactobacillus Acidophilus/ Rhamnosus (Culturelle) 1 cap BID GTB Last administered on 10/08/17 08:10; Admin Dose 1 CAP; Start 09/28/17 at 09:00 Sertraline HCl (Zoloft) 25 mg QHS GTB Last administered on 10/06/17 20:37; Admin Dose 25 MG; Start 09/28/17 at 21:00 Tramadol HCl (Ultram) 50 mg DAILY PRN GTB FOR WOUND CARE; Start 09/28/17 at 08 :00; Status Future Hold Tramadol HCl (Ultram) 50 mg Q8 GTB Last administered on 10/07/17 06:09; Admin Dose 50 MG; Start 09/28/17 at 14:00 Zolpidem Tartrate (Ambien) 5 mg QHS PRN GTB INSOMNIA; Start 09/28/17 at 08:00 Diagnostic Test (Pha) 1 ea 1 ea 02 XX Last administered on 10/08/17 01:31; Admin Dose 1 EA; Start 09/29/17 at 02:00 Dextrose/Sodium Chloride (D5-NS) 1,000 ml @ 20 mls/hr Q24H IV Last administered on 10/06/17 19:57; Admin Dose 20 MLS/HR; Start 09/28/17 at 19:00 Insulin Aspart (Novolog Insulin Pen) NOVOLOG *MILD* ALGORITHM Q4 SC Last administered on 10/08/17 08:19; Admin Dose 1 UNIT; Start 09/29/17 at 09:00 Collagenase (Santyl) 1 applic DAILY TOP Last administered on 10/08/17 08:23; Admin Dose 1 APPLIC; Start 09/29/17 at 12:00 Docusate Sodium (Colace Liquid Cup) 100 mg BID GTB Last administered on 08:10; Admin Dose 100 MG; Start 09/30/17 at 21:00 Multivitamins/ Minerals (Theragran-M) 1 tab DAILY GTB Last administered on 08:11; Admin Dose 1 TAB; Start 09/30/17 at 10:00 Lansoprazole (Prevacid) 30 mg DAILY@06 GTB Last administered on 10/08/17 05: 12; Admin Dose 30 MG; Start 09/30/17 at 12:15 Hydrogen Peroxide (Hydrogen Peroxide) 1 applic BID TOP Last administered on 08:24; Admin Dose 1 APPLIC; Start 09/30/17 at 21:00 Heparin Sodium (Porcine) (Heparin (5000 Units/0.5 ml)) 5,000 unit BID SC Last administered on 10/08/17 08:16; Admin Dose 5,000 UNIT; Start 10/01/17 at 21: 00 Brimonidine Tartrate (Alphagan P 0.1%) 1 drop BID BOTH EYES Last administered on 10/08/17 08:10; Admin Dose 1 DROP; Start 10/03/17 at 21:00 Hydrocortisone (Solu-Cortef) 100 mg Q8 IV Last administered on 10/08/17 05:12 ; Admin Dose 100 MG; Start 10/04/17 at 14:00 Silver Sulfadiazine (Thermazene 1% 25 Gm) 1 applic DAILY TOP Last administered on 10/08/17 08:24; Admin Dose 1 APPLIC; Start 10/05/17 at 11:00 Assessment/Plan Chief Complaint/Hosp Course Assessment 1. Patient admitted for repair of right femoral artery pseudoaneurysm status post repair. 2. Septic shock on mechanical ventilation. Possible component of adrenal insufficiency. 3. Dysphagia with G-tube 4. End-stage renal failure on hemodialysis 5. Idiopathic pulmonary fibrosis. Chronic respiratory failure on mechanical ventilation 6. Encephalopathy possible toxic metabolic. CT head demonstrates no acute intracranial pathology. Plan 1. Continue mechanical ventilation 2. Continue antibiotics, trial of hydrocortisone. Decreased vasopressor requirements noted. 3. Titrate vasopressors to keep map greater than 65 4. Would consider not removing fluid during hemodialysis as patient remains vasopressor dependent Extremely poor prognosis consider family conference or bioethics. Problems: ANGELINA TRUJILLO MD, [facility] Oct 08, 2017 09:10
[2017-10-08 13:06] LABS: ALBUMIN 1.7 g/dl (3.3-4.9); ALBUMIN/GLOBULIN RATIO 0.51; CALCIUM 7.7 mg/dl (8.4-10.2); CREATININE 1.75 mg/dl (0.61-1.24); MAGNESIUM 2.8 mg/dl (1.7-2.5); PHOSPHORUS 4.8 mg/dl (2.5-4.9)
[2017-10-08 13:59] LABS: POTASSIUM 5.4 mmol/L (3.5-5.1)
[2017-10-08] MEDS ORDERED: PENDING SANTYL ORDER FOR WOUND CARE XX PRN (14:00)
[2017-10-08] MEDS: COLISTIMETHATE 75 MG in SOD CHLORIDE 0.9% 100 ML IVPB SCH (14:11)
--- NOTE | 2017-10-08 15:00 | CONS ---
Date/Time of Note Date/Time of Note DATE: 10/08/17 TIME: 14:58 Consult Date/Type/Reason Admit Date/Time Sep 27, 2017 at 21:00 Initial Consult Date 09/28/17 Type of Consultation: ID Ordering Provider: PHILIPPE JUARES DO Objective Vital Signs Date Time Temp Pulse Resp B/P Pulse Ox O2 Delivery O2 Flow Rate FiO2 10/08/17 13:30 74 16 96 30 10/08/17 11:23 97.8 95/45 10/08/17 08:00 Mechanical Ventilator Intake and Output 10/07/17 10/07/17 10/08/17 15:00 23:00 07:00 Intake Total 500 ml 830 ml 460 ml Output Total 2500 ml 0 ml Balance -2000 ml 830 ml 460 ml Results/Medications Result Diagram: 10/07/17 0635 10/08/17 1202 Results 24 hrs Laboratory Tests Test 10/07/17 17:35 10/07/17 20:39 10/08/17 01:30 10/08/17 05:08 Bedside Glucose 130 135 142 134 Test 10/08/17 08:17 10/08/17 12:02 10/08/17 14:00 Bedside Glucose 155 145 Sodium Level 134 L Potassium Level 5.4 H Chloride Level 101 Carbon Dioxide Level 28 Anion Gap 10 # Blood Urea Nitrogen 60 H Creatinine 1.75 H Glucose Level 120 Calcium Level 7.7 L Phosphorus Level 4.8 Magnesium Level 2.8 H Total Bilirubin 0.0 L Direct Bilirubin 0.00 Indirect Bilirubin 0.0 Aspartate Amino Transf (AST/SGOT) 30 Alanine Aminotransferase (ALT/SGPT) 23 Alkaline Phosphatase 86 Total Protein 5.0 L Albumin 1.7 L Globulin 3.30 H Albumin/Globulin Ratio 0.51 Medications Current Medications Hydromorphone HCl (Dilaudid) 0.5 mg Q4H PRN IV PAIN Last administered on 17:00; Admin Dose 0.5 MG; Start 09/27/17 at 23:00 Midodrine (Proamatine) 10 mg TID@,,17 GTB Last administered on 10/08/17 13:59; Admin Dose 10 MG; Start 09/28/17 at 09:00 Ascorbic Acid (Vitamin C) 500 mg DAILY GTB Last administered on 10/08/17 08: 11; Admin Dose 500 MG; Start 09/28/17 at 09:00 Cholecalciferol (Vitamin D) 2,000 unit DAILY GTB Last administered on 08:10; Admin Dose 2,000 UNIT; Start 09/28/17 at 09:00 Digoxin (Digoxin) 0.125 mg DAILY GTB Last administered on 10/08/17 08:11; Admin Dose 0.125 MG; Start 09/28/17 at 09:00 Ferrous Sulfate (Feosol Liquid Cup) 300 mg DAILY GTB Last administered on 10/08 08:10; Admin Dose 300 MG; Start 09/28/17 at 09:00 Folic Acid (Folic Acid) 1 mg DAILY GTB Last administered on 10/08/17 08:11; Admin Dose 1 MG; Start 09/28/17 at 09:00 Acetaminophen/ Hydrocodone Bitart ([place] (5/325)) 1 tab DAILY GTB Last administered on 09/30/17 09:34; Admin Dose 1 TAB; Start 09/28/17 at 09:00; Status Future Hold Lactobacillus Acidophilus/ Rhamnosus (Culturelle) 1 cap BID GTB Last administered on 10/08/17 08:10; Admin Dose 1 CAP; Start 09/28/17 at 09:00 Sertraline HCl (Zoloft) 25 mg QHS GTB Last administered on 10/06/17 20:37; Admin Dose 25 MG; Start 09/28/17 at 21:00 Tramadol HCl (Ultram) 50 mg DAILY PRN GTB FOR WOUND CARE; Start 09/28/17 at 08 :00; Status Future Hold Tramadol HCl (Ultram) 50 mg Q8 GTB Last administered on 10/08/17 14:10; Admin Dose 50 MG; Start 09/28/17 at 14:00 Zolpidem Tartrate (Ambien) 5 mg QHS PRN GTB INSOMNIA; Start 09/28/17 at 08:00 Diagnostic Test (Pha) 1 ea 1 ea 02 XX Last administered on 10/08/17 01:31; Admin Dose 1 EA; Start 09/29/17 at 02:00 Dextrose/Sodium Chloride (D5-NS) 1,000 ml @ 20 mls/hr Q24H IV Last administered on 10/06/17 19:57; Admin Dose 20 MLS/HR; Start 09/28/17 at 19:00 Insulin Aspart (Novolog Insulin Pen) NOVOLOG *MILD* ALGORITHM Q4 SC Last administered on 10/08/17 14:02; Admin Dose 1 UNIT; Start 09/29/17 at 09:00 Collagenase (Santyl) 1 applic DAILY TOP Last administered on 10/08/17 08:23; Admin Dose 1 APPLIC; Start 09/29/17 at 12:00 Docusate Sodium (Colace Liquid Cup) 100 mg BID GTB Last administered on 08:10; Admin Dose 100 MG; Start 09/30/17 at 21:00 Multivitamins/ Minerals (Theragran-M) 1 tab DAILY GTB Last administered on 08:11; Admin Dose 1 TAB; Start 09/30/17 at 10:00 Lansoprazole (Prevacid) 30 mg DAILY@06 GTB Last administered on 10/08/17 05: 12; Admin Dose 30 MG; Start 09/30/17 at 12:15 Hydrogen Peroxide (Hydrogen Peroxide) 1 applic BID TOP Last administered on 08:24; Admin Dose 1 APPLIC; Start 09/30/17 at 21:00 Heparin Sodium (Porcine) (Heparin (5000 Units/0.5 ml)) 5,000 unit BID SC Last administered on 10/08/17 08:16; Admin Dose 5,000 UNIT; Start 10/01/17 at 21: 00 Brimonidine Tartrate (Alphagan P 0.1%) 1 drop BID BOTH EYES Last administered on 10/08/17 08:10; Admin Dose 1 DROP; Start 10/03/17 at 21:00 Silver Sulfadiazine (Thermazene 1% 25 Gm) 1 applic DAILY TOP Last administered on 10/08/17 08:24; Admin Dose 1 APPLIC; Start 10/05/17 at 11:00 Hydrocortisone 50 mg 50 mg Q8 IV Last administered on 10/08/17 14:10; Admin Dose 50 MG; Start 10/08/17 at 14:00 Daptomycin 290 mg/ Sodium Chloride 100 ml @ 200 mls/hr Q48H IVPB ; Start 10/08 at 18:00 Colistimethate Sodium/Sodium Chloride (Coly-Mycin/NS) 100 ml @ 200 mls/hr Q24H IVPB Last administered on 10/08/17t 14:11; Admin Dose 200 MLS/HR; Start 10/08 at 15:00 Miscellaneous Information (Pending [facility] Order For Wound Care) This patient reyes... PRN PRN XX WOUND CARE; Start 10/08/17 at 14:00 Assessment/Plan Chief Complaint/Hosp Course SUBJECTIVE: No acute changes, lethargic, in no distress. INDWELLINGS: Trach, PEG, right subclavian permacath, right upper extremity midline ANTIMICROBIALS: 1. Daptomycin. 2. Colistin. MICROBIOLOGY: Wound cultures in [facility] grew Acinetobacter baumannii and VRE, as well as Klebsiella pneumoniae, ESBL and pseudomonas. Urine culture grew Dulce glabrata. PHYSICAL EXAMINATION: GENERAL: This is a chronically ill-appearing, fragile, debilitated, elderly man who is lethargic, in no distress. HEENT: Head atraumatic, normocephalic. Sclerae anicteric. Buccal mucosa dry. NECK: Supple. Tracheostomy present. CHEST: Rise symmetrical. Breath sounds diminished to bases. HEART: S1, S2. ABDOMEN: Distended, bowel tones hypoactive. EXTREMITIES: With bilateral edema. SKIN: With multiple wounds. Patient also has right upper back rash, possibly herpetic. ASSESSMENT: 1. S/p septic shock. 2. Status post right femoral pseudoaneurysm repair. 3. Multiple chronic wounds with sacral osteomyelitis, status post debridement. 4. G-tube site cellulitis. 5. S/p nontoxic megacolon. 6. S/p Urinary tract infection. 8. Deep venous thrombosis, status post inferior vena cava filter placement. 9. Anemia. 10. Atrial fibrillation. 11. Failure to thrive. 12. End stage renal disease, hemodialysis dependent. 13. Acute encephalopathy==> CT brain neg PLAN: The patient remains unchanged. Continue present care, continue antibiotics for OM, local wound care, follow recommendations of specialists. Prognosis guarded DW staff Problems: CLAYTON SHANKAR NP Oct 08, 2017 15:00
--- NOTE | 2017-10-08 15:53 | CONS ---
Date/Time of Note Date/Time of Note DATE: 10/08/17 TIME: 15:50 Assessment/Plan Assessment/Plan Additional Assessment/Plan Additional Assessment/Plan 1. Repair of pseudoaneurysm right femoral artery 2. Shock resolved this and is off pressor support 3. Nontoxic megacolon resolved 4. Dysphagia status post PEG, no evidence of cellulitis 5. Vent dependent respiratory failure 6. Anemia no evidence of active bleeding. 7. Renal failure. On dialysis 8. Decubitus ulcer 9. Septic shock, 10 distended abdomen secondary to non toxic megacolon Plan Continue all supportive care Continue feeding Antibiotic as per ID Monitor for active GI bleeding Campbell flush as needed for distended abdomen We can stop tramadol and see with the patient is waking up on not Please discontinue tramadol patient is getting 50 mg 3 times daily through G- tube and patient is on dialysis. Consultation Date/Type/Reason Admit Date/Time Sep 27, 2017 at 21:00 Initial Consult Date 09/28/17 Type of Consultation: ID Referring Provider: PHILIPPE JUARES DO 24 HR Interval Summary Free Text/Dictation Patient is lethargic Subjective hx not possible: pt non-verbal Exam/Review of Systems Vital Signs Vitals Vital Signs Date Time Temp Pulse Resp B/P Pulse Ox O2 Delivery O2 Flow Rate FiO2 10/08/17 15:49 97.8 57 16 114/56 96 10/08/17 15:18 30 10/08/17 08:00 Mechanical Ventilator Intake and Output 10/07/17 10/07/17 10/08/17 15:00 23:00 07:00 Intake Total 500 ml 830 ml 460 ml Output Total 2500 ml 0 ml Balance -2000 ml 830 ml 460 ml Exam Respiratory: diminished breath sounds Cardiovascular: nl pulses, regular rate and rhythm Gastrointestinal: distended, non-tender, soft Extremities: edema Results Result Diagram: 10/07/17 0635 10/08/17 1202 Results 24 hrs Laboratory Tests Test 10/07/17 17:35 10/07/17 20:39 10/08/17 01:30 10/08/17 05:08 Bedside Glucose 130 135 142 134 Test 10/08/17 08:17 10/08/17 12:02 10/08/17 14:00 Bedside Glucose 155 145 Sodium Level 134 L Potassium Level 5.4 H Chloride Level 101 Carbon Dioxide Level 28 Anion Gap 10 # Blood Urea Nitrogen 60 H Creatinine 1.75 H Glucose Level 120 Calcium Level 7.7 L Phosphorus Level 4.8 Magnesium Level 2.8 H Total Bilirubin 0.0 L Direct Bilirubin 0.00 Indirect Bilirubin 0.0 Aspartate Amino Transf (AST/SGOT) 30 Alanine Aminotransferase (ALT/SGPT) 23 Alkaline Phosphatase 86 Total Protein 5.0 L Albumin 1.7 L Globulin 3.30 H Albumin/Globulin Ratio 0.51 Medications Medications Current Medications Hydromorphone HCl (Dilaudid) 0.5 mg Q4H PRN IV PAIN Last administered on 17:00; Admin Dose 0.5 MG; Start 09/27/17 at 23:00 Midodrine (Proamatine) 10 mg TID@, GTB Last administered on 10/08/17 13:59; Admin Dose 10 MG; Start 09/28/17 at 09:00 Ascorbic Acid (Vitamin C) 500 mg DAILY GTB Last administered on 10/08/17 08: 11; Admin Dose 500 MG; Start 09/28/17 at 09:00 Cholecalciferol (Vitamin D) 2,000 unit DAILY GTB Last administered on 08:10; Admin Dose 2,000 UNIT; Start 09/28/17 at 09:00 Digoxin (Digoxin) 0.125 mg DAILY GTB Last administered on 10/08/17 08:11; Admin Dose 0.125 MG; Start 09/28/17 at 09:00 Ferrous Sulfate (Feosol Liquid Cup) 300 mg DAILY GTB Last administered on 10/08 08:10; Admin Dose 300 MG; Start 09/28/17 at 09:00 Folic Acid (Folic Acid) 1 mg DAILY GTB Last administered on 10/08/17 08:11; Admin Dose 1 MG; Start 09/28/17 at 09:00 Acetaminophen/ Hydrocodone Bitart ([place] (5/325)) 1 tab DAILY GTB Last administered on 09/30/17 09:34; Admin Dose 1 TAB; Start 09/28/17 at 09:00; Status Future Hold Lactobacillus Acidophilus/ Rhamnosus (Culturelle) 1 cap BID GTB Last administered on 10/08/17 08:10; Admin Dose 1 CAP; Start 09/28/17 at 09:00 Sertraline HCl (Zoloft) 25 mg QHS GTB Last administered on 10/06/17 20:37; Admin Dose 25 MG; Start 09/28/17 at 21:00 Tramadol HCl (Ultram) 50 mg DAILY PRN GTB FOR WOUND CARE; Start 09/28/17 at 08 :00; Status Future Hold Tramadol HCl (Ultram) 50 mg Q8 GTB Last administered on 10/08/17 14:10; Admin Dose 50 MG; Start 09/28/17 at 14:00 Zolpidem Tartrate (Ambien) 5 mg QHS PRN GTB INSOMNIA; Start 09/28/17 at 08:00 Diagnostic Test (Pha) 1 ea 1 ea 02 XX Last administered on 10/08/17 01:31; Admin Dose 1 EA; Start 09/29/17 at 02:00 Dextrose/Sodium Chloride (D5-NS) 1,000 ml @ 20 mls/hr Q24H IV Last administered on 10/06/17 19:57; Admin Dose 20 MLS/HR; Start 09/28/17 at 19:00 Insulin Aspart (Novolog Insulin Pen) NOVOLOG *MILD* ALGORITHM Q4 SC Last administered on 10/08/17 14:02; Admin Dose 1 UNIT; Start 09/29/17 at 09:00 Collagenase (Santyl) 1 applic DAILY TOP Last administered on 10/08/17 08:23; Admin Dose 1 APPLIC; Start 09/29/17 at 12:00 Docusate Sodium (Colace Liquid Cup) 100 mg BID GTB Last administered on 08:10; Admin Dose 100 MG; Start 09/30/17 at 21:00 Multivitamins/ Minerals (Theragran-M) 1 tab DAILY GTB Last administered on 08:11; Admin Dose 1 TAB; Start 09/30/17 at 10:00 Lansoprazole (Prevacid) 30 mg DAILY@06 GTB Last administered on 10/08/17 05: 12; Admin Dose 30 MG; Start 09/30/17 at 12:15 Hydrogen Peroxide (Hydrogen Peroxide) 1 applic BID TOP Last administered on 08:24; Admin Dose 1 APPLIC; Start 09/30/17 at 21:00 Heparin Sodium (Porcine) (Heparin (5000 Units/0.5 ml)) 5,000 unit BID SC Last administered on 10/08/17 08:16; Admin Dose 5,000 UNIT; Start 10/01/17 at 21: 00 Brimonidine Tartrate (Alphagan P 0.1%) 1 drop BID BOTH EYES Last administered on 10/08/17 08:10; Admin Dose 1 DROP; Start 10/03/17 at 21:00 Silver Sulfadiazine (Thermazene 1% 25 Gm) 1 applic DAILY TOP Last administered on 10/08/17 08:24; Admin Dose 1 APPLIC; Start 10/05/17 at 11:00 Hydrocortisone 50 mg 50 mg Q8 IV Last administered on 10/08/17 14:10; Admin Dose 50 MG; Start 10/08/17 at 14:00 Daptomycin 290 mg/ Sodium Chloride 100 ml @ 200 mls/hr Q48H IVPB ; Start 10/08 at 18:00 Colistimethate Sodium/Sodium Chloride (Coly-Mycin/NS) 100 ml @ 200 mls/hr Q24H IVPB Last administered on 10/08/17 14:11; Admin Dose 200 MLS/HR; Start 10/08 at 15:00 Miscellaneous Information (Pending [facility] Order For Wound Care) This patient reyes... PRN PRN XX WOUND CARE; Start 10/08/17 at 14:00 LIANNA BOWLING MD Oct 08, 2017 15:53
--- NOTE | 2017-10-08 16:15 | CONS ---
Date/Time of Note Date/Time of Note DATE: 10/08/17 TIME: 16:13 Consult Date/Type/Reason Admit Date/Time Sep 27, 2017 at 21:00 Initial Consult Date 09/28/17 Type of Consultation: card Ordering Provider: PHILIPPE JUARES DO Subjective Cardiology follow up note S: D/ W staff and rhythm was reviewed. pt remains in Afib. his HR is under good control but pt also with frequent PVC and ventricular bigeminy still. also with short runs of VT/ torsades. d/w he remains lethargic and novnerbal now still on vent in ICU pt is off of levophed drip now and on tele. O: General: Thin. s/p trach on vent. no acute distress HEENT: NC/AT. pupils are equal. round. NECK: s/p trach. . no stridor. CV: irregularly irregular. systolic murmur; no gallop or rubs. PULM: no wheezing . + rhonchi. GI: SOFT, NT, ND, no rebound or guarding vascular: R fem s/p surgery Extremity: increased B/L LE edema. no clubbing. neuro: lethargic Psych: calm and pleasant rectal: deferred : normal male Derm: With diffuse ecchymosis throughout the body. CXR reviewed. ECHO: 1. Normal left ventricular systolic function. Normal left ventricular cavity size. Moderate concentric left ventricular hypertrophy. Ejection fraction is visually estimated at 65 %. Abnormal Diastolic Function. 2. Aortic sclerosis without stenosis. Objective Vital Signs Date Time Temp Pulse Resp B/P Pulse Ox O2 Delivery O2 Flow Rate FiO2 10/08/17 15:49 97.8 57 16 114/56 96 10/08/17 15:18 30 10/08/17 08:00 Mechanical Ventilator Intake and Output 10/07/17 10/07/17 10/08/17 15:00 23:00 07:00 Intake Total 500 ml 830 ml 460 ml Output Total 2500 ml 0 ml Balance -2000 ml 830 ml 460 ml Results/Medications Result Diagram: 10/07/17 0635 10/08/17 1202 Results 24 hrs Laboratory Tests Test 10/07/17 17:35 10/07/17 20:39 10/08/17 01:30 10/08/17 05:08 Bedside Glucose 130 135 142 134 Test 10/08/17 08:17 10/08/17 12:02 10/08/17 14:00 Bedside Glucose 155 145 Sodium Level 134 L Potassium Level 5.4 H Chloride Level 101 Carbon Dioxide Level 28 Anion Gap 10 # Blood Urea Nitrogen 60 H Creatinine 1.75 H Glucose Level 120 Calcium Level 7.7 L Phosphorus Level 4.8 Magnesium Level 2.8 H Total Bilirubin 0.0 L Direct Bilirubin 0.00 Indirect Bilirubin 0.0 Aspartate Amino Transf (AST/SGOT) 30 Alanine Aminotransferase (ALT/SGPT) 23 Alkaline Phosphatase 86 Total Protein 5.0 L Albumin 1.7 L Globulin 3.30 H Albumin/Globulin Ratio 0.51 Medications Current Medications Hydromorphone HCl (Dilaudid) 0.5 mg Q4H PRN IV PAIN Last administered on 17:00; Admin Dose 0.5 MG; Start 09/27/17 at 23:00 Midodrine (Proamatine) 10 mg TID@,, GTB Last administered on 10/08/17 13:59; Admin Dose 10 MG; Start 09/28/17 at 09:00 Ascorbic Acid (Vitamin C) 500 mg DAILY GTB Last administered on 10/08/17 08: 11; Admin Dose 500 MG; Start 09/28/17 at 09:00 Cholecalciferol (Vitamin D) 2,000 unit DAILY GTB Last administered on 08:10; Admin Dose 2,000 UNIT; Start 09/28/17 at 09:00 Digoxin (Digoxin) 0.125 mg DAILY GTB Last administered on 10/08/17 08:11; Admin Dose 0.125 MG; Start 09/28/17 at 09:00 Ferrous Sulfate (Feosol Liquid Cup) 300 mg DAILY GTB Last administered on 10/08 08:10; Admin Dose 300 MG; Start 09/28/17 at 09:00 Folic Acid (Folic Acid) 1 mg DAILY GTB Last administered on 10/08/17 08:11; Admin Dose 1 MG; Start 09/28/17 at 09:00 Acetaminophen/ Hydrocodone Bitart ([place] (5/325)) 1 tab DAILY GTB Last administered on 09/30/17 09:34; Admin Dose 1 TAB; Start 09/28/17 at 09:00; Status Future Hold Lactobacillus Acidophilus/ Rhamnosus (Culturelle) 1 cap BID GTB Last administered on 10/08/17 08:10; Admin Dose 1 CAP; Start 09/28/17 at 09:00 Sertraline HCl (Zoloft) 25 mg QHS GTB Last administered on 10/06/17 20:37; Admin Dose 25 MG; Start 09/28/17 at 21:00 Tramadol HCl (Ultram) 50 mg DAILY PRN GTB FOR WOUND CARE; Start 09/28/17 at 08 :00; Status Future Hold Tramadol HCl (Ultram) 50 mg Q8 GTB Last administered on 10/08/17 14:10; Admin Dose 50 MG; Start 09/28/17 at 14:00 Zolpidem Tartrate (Ambien) 5 mg QHS PRN GTB INSOMNIA; Start 09/28/17 at 08:00 Diagnostic Test (Pha) 1 ea 1 ea 02 XX Last administered on 10/08/17 01:31; Admin Dose 1 EA; Start 09/29/17 at 02:00 Dextrose/Sodium Chloride (D5-NS) 1,000 ml @ 20 mls/hr Q24H IV Last administered on 10/06/17 19:57; Admin Dose 20 MLS/HR; Start 09/28/17 at 19:00 Insulin Aspart (Novolog Insulin Pen) NOVOLOG *MILD* ALGORITHM Q4 SC Last administered on 10/08/17 14:02; Admin Dose 1 UNIT; Start 09/29/17 at 09:00 Collagenase (Santyl) 1 applic DAILY TOP Last administered on 10/08/17 08:23; Admin Dose 1 APPLIC; Start 09/29/17 at 12:00 Docusate Sodium (Colace Liquid Cup) 100 mg BID GTB Last administered on 08:10; Admin Dose 100 MG; Start 09/30/17 at 21:00 Multivitamins/ Minerals (Theragran-M) 1 tab DAILY GTB Last administered on 08:11; Admin Dose 1 TAB; Start 09/30/17 at 10:00 Lansoprazole (Prevacid) 30 mg DAILY@06 GTB Last administered on 10/08/17 05: 12; Admin Dose 30 MG; Start 09/30/17 at 12:15 Hydrogen Peroxide (Hydrogen Peroxide) 1 applic BID TOP Last administered on 08:24; Admin Dose 1 APPLIC; Start 09/30/17 at 21:00 Heparin Sodium (Porcine) (Heparin (5000 Units/0.5 ml)) 5,000 unit BID SC Last administered on 10/08/17 08:16; Admin Dose 5,000 UNIT; Start 10/01/17 at 21: 00 Brimonidine Tartrate (Alphagan P 0.1%) 1 drop BID BOTH EYES Last administered on 10/08/17 08:10; Admin Dose 1 DROP; Start 10/03/17 at 21:00 Silver Sulfadiazine (Thermazene 1% 25 Gm) 1 applic DAILY TOP Last administered on 10/08/17 08:24; Admin Dose 1 APPLIC; Start 10/05/17 at 11:00 Hydrocortisone 50 mg 50 mg Q8 IV Last administered on 10/08/17 14:10; Admin Dose 50 MG; Start 10/08/17 at 14:00 Daptomycin 290 mg/ Sodium Chloride 100 ml @ 200 mls/hr Q48H IVPB ; Start 10/08 at 18:00 Colistimethate Sodium/Sodium Chloride (Coly-Mycin/NS) 100 ml @ 200 mls/hr Q24H IVPB Last administered on 10/08/17 14:11; Admin Dose 200 MLS/HR; Start 10/08 at 15:00 Miscellaneous Information (Pending [facility] Order For Wound Care) This patient reyes... PRN PRN XX WOUND CARE; Start 10/08/17 at 14:00 Assessment/Plan Chief Complaint/Hosp Course 1. septic SHOCK: BP is better now and off of pressors. 2. Afib: persistent/ chronic now. 3. hypoxemic resp failure: s/p trach vent dependent now. 4. hx anemia and GI bleed: off of any anticoagulation 5. 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 s/p multiple infections 8. dysphagia: s/p PEG 9. encephalopathy: 10. fluid overload/ CHF/ anasarca: ACUTE on chronic due to fluid overload and diastolic failure. 11. Ventricular arrhythmia and PVC/ VT torsades. Recommendations: Vent support will be continued for now. Hemodialysis will be managed by nephrology team .correction of electrolytes with assistance of HD cont Heart rate control Transfusion as needed only Patient currently off of full anticoagulation due to concern about history of severe anemia as well as GI bleed and OB positive stool. Head CT done 10/02/17 did not show any acute CVA prognosis is poor but pt is still full code per request. I have spoken to her in lenght to reconsider code statues. she is still thinking about it. . Thank you for his referral. I will continue to follow along with you. DIOR JEFFERSON MD [facility] Problems: DIOR JEFFERSON MD Oct 08, 2017 16:15
[2017-10-08] MEDS: SOD CHLORIDE 0.9% IVPB SCH (17:26)
[2017-10-08] MEDS: DAPTOMYCIN IVPB SCH (17:26)
--- NOTE | 2017-10-08 18:26 | PN ---
Date/Time of Note Date/Time of Note DATE: 10/08/17 TIME: 18:25 Assessment/Plan Lines/Catheters IV Catheter Type (from [facility]): PERMACATH [place] in Place (from [facility]): No Assessment/Plan Chief Complaint/Hosp Course 1. Hypotension, sepsis. Weaned off pressors -supportive -judicious fluids -consider hospice/comfort measures - d/w 2. Sacral & left trochanter pressure ulcers: -debridement prn -local care -frequent turning and off-loading -low air loss mattress -vitamin c -short term zinc -optimize nutrition 3. 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 End-stage renal disease -HD per renal -avoid/limit nephrotoxic meds -judicious fluids -renally dose meds 5. Anemia: no acute bleed noted -closely monitor surgical site -transfuse as needed 6. Atrial fibrillation -rate control -lyte optimization -cards optimization 7. Dysphagia with feeding tube: on tube feeds -cont tf with aspiration precautions 8. Leukocytosis: afebrile -monitor -further workup if persistent 9. Thrombocytosis -supportive 10. Hypoalbuminemia: likely multifactorial -optimize nutrition -medical management of inflammation/infection 11. Electrolyte imbalance -optimize lytes and monitor 12. Ventilator dependent respiratory failure -per pulm -pulm toilet -respiratory treatments Thank you, Problems: Subjective 24 Hr Interval Summary Continues in ICU. Off pressor. HD. Leukocytosis. No fevers, congested cough, v/ d. AFib, rate controlled. Non responsive. Had d/w re goals of care. Exam/Review of Systems Vital Signs Vitals Vital Signs Date Time Temp Pulse Resp B/P Pulse Ox O2 Delivery O2 Flow Rate FiO2 10/08/17 17:11 74 14 98 30 10/08/17 15:49 97.8 114/56 10/08/17 08:00 Mechanical Ventilator Intake and Output 10/07/17 10/07/17 10/08/17 15:00 23:00 07:00 Intake Total 500 ml 830 ml 460 ml Output Total 2500 ml 0 ml Balance -2000 ml 830 ml 460 ml Exam Free Text/Dictation Constitutional: Not following commands, ventilated Psych: lethargic, non responsive Head: atraumatic, normocephalic Eyes: nl lids, nl sclera ENMT: mucosa pink and moist, nl nasal mucosa & septum Neck: non-tender, other (trach-vent), supple Respiratory: diminished breath sounds, No labored breathing Cardiovascular: irregular rhythm, other (afib) Gastrointestinal: non-tender, other (peg), soft Genitourinary - Male: nl penis, nl scrotum Musculoskeletal: nl extremities to inspection, swelling improved Extremities: cap refill 2 s Neurological: No nl speech, No nl strength (gen weakness) Skin: Femoral incision with dressing, sacral and left troch pressure ulcers Lymph: No nl lymph nodes Results Result Diagram: 10/07/17 0635 10/08/17 1202 CORA MATAMOROS MD Oct 08, 2017 18:26
[2017-10-08] MEDS: DEXTROSE 5%-0.9% NACL 1,000 ML IV SCH (19:00)
[2017-10-08] MEDS: SERTRALINE 50 MG TAB GTB SCH (21:44)
[2017-10-09] VITALS (35 sets, daily range): BP systolic 80–141; BP diastolic 48–96; PULSE 30–102; RESP 12–21
[2017-10-09] MEDS: INSULIN ASPART [NOVOLOG] 3 ML PEN SC SCH ×6 (01:00→21:00)
[2017-10-09] MEDS: ACCU-CHEK XX SCH (01:56)
[2017-10-09] MEDS: LACTOBACILLUS RHAMNOSUS CAP GTB SCH ×3 (01:56→21:54)
[2017-10-09] MEDS: HYDROCORTISONE 100 MG INJ IV SCH ×3 (05:20→21:54)
[2017-10-09] MEDS: traMADol 50 MG TAB GTB SCH ×3 (05:20→21:58)
[2017-10-09] MEDS: LANSOPRAZOLE 30 MG CAP GTB SCH (05:20)
[2017-10-09] MEDS: DEXTROSE 5%-0.9% NACL 1,000 ML IV SCH (05:39)
[2017-10-09] MEDS: DIGOXIN 0.125 MG TAB GTB SCH (09:00)
[2017-10-09] MEDS: FERROUS SULFATE 60 MG/ML 5ML CUP GTB SCH (09:18)
[2017-10-09] MEDS: DOCUSATE SODIUM 10 MG/ML (10ML CUP) GTB SCH ×2 (09:18→21:54)
[2017-10-09] MEDS: FOLIC ACID 1 MG TAB GTB SCH (09:20)
[2017-10-09] MEDS: MIDODRINE 5 MG TAB GTB SCH ×3 (09:20→16:40)
[2017-10-09] MEDS: MULTIVITAMINS/MINERALS TAB GTB SCH (09:20)
[2017-10-09] MEDS: ASCORBIC ACID 500 MG TAB GTB SCH (09:20)
[2017-10-09] MEDS: SILVER SULFADIAZINE 1% 25 GM CR TOP SCH (09:21)
[2017-10-09] MEDS: CHOLECALCIFEROL 2,000 UNIT CAP GTB SCH (09:21)
[2017-10-09] MEDS: HYDROGEN PEROXIDE 118 ML TOP SCH ×2 (09:23→21:54)
[2017-10-09] MEDS: COLLAGENASE 30 GM TUBE TOP SCH (09:24)
[2017-10-09] MEDS: BRIMONIDINE 0.1% 5 ML OPH BOTH EYES SCH ×2 (09:25→21:54)
[2017-10-09] MEDS: HEPARIN 5,000 UNIT/0.5 ML VIAL SC SCH ×2 (09:42→21:56)
[2017-10-09 09:51] LABS: ABNORMAL IP MESSAGE 1; HEMOGLOBIN 10.2 g/dl (14.0-18.0); MEAN CORPUSCULAR HGB CONC 32.9 g/dl (32.0-37.0); MEAN CORPUSCULAR VOLUME 97.2 fl (82.0-101.0); NUCLEATED RED BLOOD CELLS% 0.8 /100WBC (0.0-0.0); PLATELET COUNT 81 10^3/UL (140-415); POSITIVE DIFF @See below; RED BLOOD COUNT 3.19 10^6/ul (4.70-6.10); WHITE BLOOD COUNT 13.7 10^3/ul (4.8-10.8)
--- NOTE | 2017-10-09 09:54 | PN ---
DATE: 10/09/2017 SUBJECTIVE: The patient was transferred from intensive care unit to telemetry. No other events not ed. OBJECTIVE: VITAL SIGNS: Blood pressure is 112/56, respirations 14, pulse 73, temperature 97.8. HEENT: Head is normocephalic. NECK: Supple. HEART: Regular rate. LUNGS: Show diminished breath sounds at the base. ABDOMEN: Soft, nontender to palpation. No rebound or guarding. EXTREMITIES: Negative for clubbing, cyanosis, no edema. The patient has diffuse anasarca. DERMATOLOGIC: No rashes. MUSCULOSKELETAL: No joint effusions. NEUROLOGIC: No change in exam. MEDICATIONS: Have been reviewed. LABORATORY DATA: Currently pending. ASSESSMENT AND PLAN: 1. Sepsis, status post shock secondary to pneumonia, underlying wounds. The patient is currently o ff pressor support. We will continue current antibiotic regimen. 2. Ventilator dependent respiratory failure. Vent settings and ABG is reviewed. Continue to monit or. Follow up with pulmonary. 3. Right pseudoaneurysm status post surgical repair. Continue wound care. 4. Acute encephalopathy, etiology toxic metabolic. The patient has no significant change in mental status. 5. End-stage renal disease. Continue hemodialysis for solute clearance and volume removal. 6. Volume overload secondary to congestive heart failure, end-stage renal disease. Continue ultraf iltration with dialysis. 7. Mineral bone disorder. Monitor calcium and phosphorus levels. 8. Hypokalemia. Continue to monitor and replete as needed. 9. Hyponatremia. Continue dialysis on 140 sodium bath. 10. Atrial fibrillation, continue current medical management. 11. Dysphagia, status post percutaneous endoscopic gastrostomy tube. Continue tube feeding. 12. Decubitus wound. Continue wound care. 13. Gastrointestinal and deep venous thrombosis prophylaxis. DISPOSITION: We will attempt to transfer the patient to [place]. Dictated By: PHILIPPE WILSON/NORM Conf#: [id number] DID#: [id number]
[2017-10-09 10:20] LABS: CALCIUM 8.5 mg/dl (8.4-10.2); CREATININE 2.1 mg/dl (0.61-1.24); MAGNESIUM 2.9 mg/dl (1.7-2.5); PHOSPHORUS 4.8 mg/dl (2.5-4.9); POTASSIUM 5.5 mmol/L (3.5-5.1)
[2017-10-09 11:07] LABS: ANISOCYTOSIS 2+ (0-0); ERYTHROBLAST% (NRBC) (M) 1 % (0-0); GIANT THROMBO% (M) 1 % (0-0); HYPOCHROMASIA 1+ (0-0); METAMYELOCYTES %M 2 % (0-0); MONOCYTES % (M) 7 % (0-11); MYELOCYTES % (M) 2 % (0-0); PLATELET ESTIMATE DECREASED; POIKILOCYTOSIS 3+ (0-0); POLYCHROMASIA 3+ (0-0); PROMYELOCYTES #M 0.1 10^3/ul (0-0); PROMYELOCYTES % (M) 1 % (0-0)
--- NOTE | 2017-10-09 12:12 | CONS ---
Date/Time of Note Date/Time of Note DATE: 10/09/17 TIME: 12:10 Assessment/Plan Assessment/Plan Additional Assessment/Plan Ventilator setting; AC of 12, tidal volume 450, PEEP of 5, 30% FiO2. Assessment and recommendations; 1. Patient admitted for repair of right femoral artery pseudoaneurysm. 2. Patient developed postop hypotension with interval improvement. 3. Worsening dementia/encephalopathy. 4. End-stage renal disease, on hemodialysis. 5. Chronic interstitial lung disease. Continue current supportive care. Consider discharge. Prognosis is extremely poor. Consultation Date/Type/Reason Admit Date/Time Sep 27, 2017 at 21:00 Initial Consult Date 09/28/17 Type of Consultation: Pulmonary Referring Provider: PHILIPPE JUARES DO 24 HR Interval Summary Free Text/Dictation Patient's condition remained stable. Generally unresponsive. But has remained hemodynamically stable. General exam; elderly male, on ventilator via tracheostomy, unresponsive, currently in no distress. Exam/Review of Systems Vital Signs Vitals Vital Signs Date Time Temp Pulse Resp B/P Pulse Ox O2 Delivery O2 Flow Rate FiO2 10/09/17 11:35 102 10/09/17 11:20 98.0 15 110/96 99 10/09/17 09:20 30 10/08/17 08:00 Mechanical Ventilator Intake and Output 10/08/17 10/08/17 10/09/17 14:59 22:59 06:59 Intake Total 270 ml 300 ml 20 ml Balance 270 ml 300 ml 20 ml Exam HEENT exam; supple neck, no JVD. No lymphadenopathy. Midline trachea. No thyromegaly. Patient is edentulous. Tracheostomy in place. Chest exam; diminished but clear breath sounds. S1-S2 audible, no murmurs. Regular rhythm. Abdomen exam; soft, G-tube in place. Scaphoid. No organomegaly. Bowel sounds audible. Extremity exam; no peripheral edema. STUMP BLOWER exam; patient remains essentially unresponsive. Results Result Diagram: 10/09/1790010/09/17900 Results 24 hrs Laboratory Tests Test 10/08/17 14:00 10/08/17 17:24 10/08/17 21:46 10/09/17 01:55 Bedside Glucose 145 150 132 149 Test 10/09/17 05:19 10/09/17 09:01 10/09/17 09:11 Bedside Glucose 118 131 White Blood Count 13.7 #H Red Blood Count 3.19 L Hemoglobin 10.2 L Hematocrit 31.0 L Mean Corpuscular Volume 97.2 Mean Corpuscular Hemoglobin 32.0 Mean Corpuscular Hemoglobin Concent 32.9 Red Cell Distribution Width 21.0 H Platelet Count 81 #L Mean Platelet Volume Neutrophils % Segmented Neutrophils % (Manual) 84 H Band Neutrophils % (Manual) 1 Lymphocytes % Lymphocytes % (Manual) 3 L Monocytes % Monocytes % (Manual) 7 Eosinophils % Basophils % Metamyelocytes % (manual) 2 H Myelocytes % (Manual) 2 H Promyelocytes % (Manual) 1 H Nucleated Red Blood Cells % 1 H Neutrophils # Neutrophils # (Manual) 11.5 H Band Neutrophils # 0.1 Absolute Lymphocytes (Manual) 0.4 L Lymphocytes # Monocytes # Absolute Monocytes (Manual) 0.9 Eosinophils # Basophils # Metamyelocytes # 0.2 H Myelocytes # 0.2 H Promyelocytes # 0.1 H Nucleated Red Blood Cells # Platelet Estimate DECREASED Giant Platelets 1 H Polychromasia 3+ Hypochromasia 1+ Poikilocytosis 3+ Anisocytosis 2+ Macrocytosis 2+ Sodium Level 136 Potassium Level 5.5 H Chloride Level 100 Carbon Dioxide Level 26 Anion Gap 16 Blood Urea Nitrogen 73 H Creatinine 2.10 H Glucose Level 125 Calcium Level 8.5 Phosphorus Level 4.8 Magnesium Level 2.9 H Medications Medications Current Medications Hydromorphone HCl (Dilaudid) 0.5 mg Q4H PRN IV PAIN Last administered on 17:00; Admin Dose 0.5 MG; Start 09/27/17 at 23:00 Midodrine (Proamatine) 10 mg TID@17 GTB Last administered on 10/09/17 09:20; Admin Dose 10 MG; Start 09/28/17 at 09:00 Ascorbic Acid (Vitamin C) 500 mg DAILY GTB Last administered on 10/09/17 09: 20; Admin Dose 500 MG; Start 09/28/17 at 09:00 Cholecalciferol (Vitamin D) 2,000 unit DAILY GTB Last administered on 09:21; Admin Dose 2,000 UNIT; Start 09/28/17 at 09:00 Digoxin (Digoxin) 0.125 mg DAILY GTB Last administered on 10/08/17 08:11; Admin Dose 0.125 MG; Start 09/28/17 at 09:00 Ferrous Sulfate (Feosol Liquid Cup) 300 mg DAILY GTB Last administered on 10/09 09:18; Admin Dose 300 MG; Start 09/28/17 at 09:00 Folic Acid (Folic Acid) 1 mg DAILY GTB Last administered on 10/09/17 09:20; Admin Dose 1 MG; Start 09/28/17 at 09:00 Acetaminophen/ Hydrocodone Bitart ([place] (5/325)) 1 tab DAILY GTB Last administered on 09/30/17 09:34; Admin Dose 1 TAB; Start 09/28/17 at 09:00; Status Future Hold Lactobacillus Acidophilus/ Rhamnosus (Culturelle) 1 cap BID GTB Last administered on 10/09/17 09:18; Admin Dose 1 CAP; Start 09/28/17 at 09:00 Sertraline HCl (Zoloft) 25 mg QHS GTB Last administered on 10/08/17 21:44; Admin Dose 25 MG; Start 09/28/17 at 21:00 Tramadol HCl (Ultram) 50 mg DAILY PRN GTB FOR WOUND CARE; Start 09/28/17 at 08 :00; Status Future Hold Tramadol HCl (Ultram) 50 mg Q8 GTB Last administered on 10/09/17 05:20; Admin Dose 50 MG; Start 09/28/17 at 14:00 Zolpidem Tartrate (Ambien) 5 mg QHS PRN GTB INSOMNIA; Start 09/28/17 at 08:00 Diagnostic Test (Pha) 1 ea 1 ea 02 XX Last administered on 10/08/17 01:31; Admin Dose 1 EA; Start 09/29/17 at 02:00 Dextrose/Sodium Chloride (D5-NS) 1,000 ml @ 20 mls/hr Q24H IV Last administered on 10/09/17 05:39; Admin Dose 20 MLS/HR; Start 09/28/17 at 19:00 Insulin Aspart (Novolog Insulin Pen) NOVOLOG *MILD* ALGORITHM Q4 SC Last administered on 10/08/17 17:34; Admin Dose 1 UNIT; Start 09/29/17 at 09:00 Collagenase (Santyl) 1 applic DAILY TOP Last administered on 10/09/17 09:24; Admin Dose 1 APPLIC; Start 09/29/17 at 12:00 Docusate Sodium (Colace Liquid Cup) 100 mg BID GTB Last administered on 09:18; Admin Dose 100 MG; Start 09/30/17 at 21:00 Multivitamins/ Minerals (Theragran-M) 1 tab DAILY GTB Last administered on 09:20; Admin Dose 1 TAB; Start 09/30/17 at 10:00 Lansoprazole (Prevacid) 30 mg DAILY@06 GTB Last administered on 10/09/17 05: 20; Admin Dose 30 MG; Start 09/30/17 at 12:15 Hydrogen Peroxide (Hydrogen Peroxide) 1 applic BID TOP Last administered on 09:23; Admin Dose 1 APPLIC; Start 09/30/17 at 21:00 Heparin Sodium (Porcine) (Heparin (5000 Units/0.5 ml)) 5,000 unit BID SC Last administered on 10/09/17 09:42; Admin Dose 5,000 UNIT; Start 10/01/17 at 21: 00 Brimonidine Tartrate (Alphagan P 0.1%) 1 drop BID BOTH EYES Last administered on 10/09/17 09:25; Admin Dose 1 DROP; Start 10/03/17 at 21:00 Silver Sulfadiazine (Thermazene 1% 25 Gm) 1 applic DAILY TOP Last administered on 10/09/17 09:21; Admin Dose 1 APPLIC; Start 10/05/17 at 11:00 Hydrocortisone 50 mg 50 mg Q8 IV Last administered on 10/09/17 05:20; Admin Dose 50 MG; Start 10/08/17 at 14:00 Daptomycin 290 mg/ Sodium Chloride 100 ml @ 200 mls/hr Q48H IVPB Last administered on 10/08/17 17:26; Admin Dose 200 MLS/HR; Start 10/08/17 at 18: 00 Colistimethate Sodium/Sodium Chloride (Coly-Mycin/NS) 100 ml @ 200 mls/hr Q24H IVPB Last administered on 10/08/17 14:11; Admin Dose 200 MLS/HR; Start 10/08 at 15:00 Miscellaneous Information (Pending Santyl Order For Wound Care) This patient reyes... PRN PRN XX WOUND CARE; Start 10/08/17 at 14:00 Influenza Virus Vaccine (Fluzone) 0.5 ml ONCE ONCE IM* ; Start 10/10/17 at 12: 00; Stop 10/10/17 at 12:01 DAKOTA SHELLEY Oct 09, 2017 12:12
--- NOTE | 2017-10-09 12:32 | PN ---
Date/Time of Note Date/Time of Note DATE: 10/09/17 TIME: 12:27 Assessment/Plan Lines/Catheters IV Catheter Type (from [facility]): permacath [place] in Place (from [facility]): No Assessment/Plan Chief Complaint/Hosp Course 1. Hypotension, sepsis. Weaned off pressors; now in tele -supportive -judicious fluids -consider hospice/comfort measures - d/w 2. Sacral & left trochanter pressure ulcers: -debridement prn -local care -frequent turning and off-loading -low air loss mattress -vitamin c -short term zinc -optimize nutrition 3. 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 End-stage renal disease with generalized edema -HD per renal -avoid/limit nephrotoxic meds -judicious fluids -renally dose meds 5. Anemia: no acute bleed noted -closely monitor surgical site -transfuse as needed 6. Atrial fibrillation -rate control -lyte optimization -cards optimization 7. Dysphagia with feeding tube: on tube feeds -cont tf with aspiration precautions 8. Leukocytosis: afebrile; wbc up again -monitor -further workup if persistent 9. Thrombocytosis -supportive 10. Hypoalbuminemia: likely multifactorial -optimize nutrition -medical management of inflammation/infection 11. Electrolyte imbalance -optimize lytes and monitor 12. Ventilator dependent respiratory failure; pl effusions -per pulm -pulm toilet -respiratory treatments Thank you. Patient seen and examined in collaboration with Dr. oH Lua. Problems: Subjective 24 Hr Interval Summary Out of ICU. s/p dialysis. Leukocytosis without fevers. Obtunded. Nonverbal indicators of pain not present. Appears comfortable on vent. Exam/Review of Systems Vital Signs Vitals Vital Signs Date Time Temp Pulse Resp B/P Pulse Ox O2 Delivery O2 Flow Rate FiO2 10/09/17 11:35 102 10/09/17 11:20 98.0 15 110/96 99 10/09/17 09:20 30 10/08/17 08:00 Mechanical Ventilator Intake and Output 10/08/17 10/08/17 10/09/17 15:00 23:00 07:00 Intake Total 240 ml 300 ml 20 ml Balance 240 ml 300 ml 20 ml Exam Free Text/Dictation Constitutional: obtunded, ventilated Psych: lethargic, non responsive Head: atraumatic, normocephalic Eyes: nl lids, nl sclera ENMT: mucosa pink and moist, nl nasal mucosa & septum Neck: non-tender, other (trach-vent), supple Respiratory: diminished breath sounds, No labored breathing Cardiovascular: irregular rhythm, other (afib controlled/uncontrolled), generalized edema Gastrointestinal: non-tender, other (peg), soft Genitourinary - Male: nl penis, nl scrotum Musculoskeletal: nl extremities to inspection, swelling improved Extremities: cap refill 2 s Neurological: No nl speech, No nl strength (gen weakness) Skin: Femoral incision with dressing, sacral and left troch pressure ulcers Lymph: No nl lymph nodes Results Result Diagram: 10/09/1790010/09/17 0901 MART AMEZQUITA NP Oct 09, 2017 12:32
--- NOTE | 2017-10-09 14:24 | CONS ---
Date/Time of Note Date/Time of Note DATE: 10/09/17 TIME: 14:23 Consult Date/Type/Reason Admit Date/Time Sep 27, 2017 at 21:00 Initial Consult Date 09/28/17 Type of Consultation: id Ordering Provider: PHILIPPE JUARES DO Objective Vital Signs Date Time Temp Pulse Resp B/P Pulse Ox O2 Delivery O2 Flow Rate FiO2 10/09/17 11:35 102 10/09/17 11:35 16 10/09/17 11:20 98.0 110/96 99 10/09/17 09:20 30 10/08/17 08:00 Mechanical Ventilator Intake and Output 10/08/17 10/08/17 10/09/17 14:59 22:59 06:59 Intake Total 270 ml 300 ml 20 ml Balance 270 ml 300 ml 20 ml Results/Medications Result Diagram: 10/09/17 0901 10/09/17 0901 Results 24 hrs Laboratory Tests Test 10/08/17 17:24 10/08/17 21:46 10/09/17 01:55 10/09/17 05:19 Bedside Glucose 150 132 149 118 Test 10/09/17 09:01 10/09/17 09:11 10/09/17 13:38 10/09/17 13:39 White Blood Count 13.7 #H Red Blood Count 3.19 L Hemoglobin 10.2 L Hematocrit 31.0 L Mean Corpuscular Volume 97.2 Mean Corpuscular Hemoglobin 32.0 Mean Corpuscular Hemoglobin Concent 32.9 Red Cell Distribution Width 21.0 H Platelet Count 81 #L Mean Platelet Volume Neutrophils % Segmented Neutrophils % (Manual) 84 H Band Neutrophils % (Manual) 1 Lymphocytes % Lymphocytes % (Manual) 3 L Monocytes % Monocytes % (Manual) 7 Eosinophils % Basophils % Metamyelocytes % (manual) 2 H Myelocytes % (Manual) 2 H Promyelocytes % (Manual) 1 H Nucleated Red Blood Cells % 1 H Neutrophils # Neutrophils # (Manual) 11.5 H Band Neutrophils # 0.1 Absolute Lymphocytes (Manual) 0.4 L Lymphocytes # Monocytes # Absolute Monocytes (Manual) 0.9 Eosinophils # Basophils # Metamyelocytes # 0.2 H Myelocytes # 0.2 H Promyelocytes # 0.1 H Nucleated Red Blood Cells # Platelet Estimate DECREASED Giant Platelets 1 H Polychromasia 3+ Hypochromasia 1+ Poikilocytosis 3+ Anisocytosis 2+ Macrocytosis 2+ Sodium Level 136 Potassium Level 5.5 H Chloride Level 100 Carbon Dioxide Level 26 Anion Gap 16 Blood Urea Nitrogen 73 H Creatinine 2.10 H Glucose Level 125 Calcium Level 8.5 Phosphorus Level 4.8 Magnesium Level 2.9 H Bedside Glucose 131 172 144 Medications Current Medications Hydromorphone HCl (Dilaudid) 0.5 mg Q4H PRN IV PAIN Last administered on 17:00; Admin Dose 0.5 MG; Start 09/27/17 at 23:00 Midodrine (Proamatine) 10 mg TID@,,17 GTB Last administered on 10/09/17 13:36; Admin Dose 10 MG; Start 09/28/17 at 09:00 Ascorbic Acid (Vitamin C) 500 mg DAILY GTB Last administered on 10/09/17 09: 20; Admin Dose 500 MG; Start 09/28/17 at 09:00 Cholecalciferol (Vitamin D) 2,000 unit DAILY GTB Last administered on 09:21; Admin Dose 2,000 UNIT; Start 09/28/17 at 09:00 Digoxin (Digoxin) 0.125 mg DAILY GTB Last administered on 10/08/17 08:11; Admin Dose 0.125 MG; Start 09/28/17 at 09:00 Ferrous Sulfate (Feosol Liquid Cup) 300 mg DAILY GTB Last administered on 10/09 09:18; Admin Dose 300 MG; Start 09/28/17 at 09:00 Folic Acid (Folic Acid) 1 mg DAILY GTB Last administered on 10/09/17 09:20; Admin Dose 1 MG; Start 09/28/17 at 09:00 Acetaminophen/ Hydrocodone Bitart ([place] (5/325)) 1 tab DAILY GTB Last administered on 09/30/17 09:34; Admin Dose 1 TAB; Start 09/28/17 at 09:00; Status Future Hold Lactobacillus Acidophilus/ Rhamnosus (Culturelle) 1 cap BID GTB Last administered on 10/09/17 09:18; Admin Dose 1 CAP; Start 09/28/17 at 09:00 Sertraline HCl (Zoloft) 25 mg QHS GTB Last administered on 10/08/17 21:44; Admin Dose 25 MG; Start 09/28/17 at 21:00 Tramadol HCl (Ultram) 50 mg DAILY PRN GTB FOR WOUND CARE; Start 09/28/17 at 08 :00; Status Future Hold Tramadol HCl (Ultram) 50 mg Q8 GTB Last administered on 10/09/17 13:40; Admin Dose 50 MG; Start 09/28/17 at 14:00 Zolpidem Tartrate (Ambien) 5 mg QHS PRN GTB INSOMNIA; Start 09/28/17 at 08:00 Diagnostic Test (Pha) 1 ea 1 ea 02 XX Last administered on 10/08/17 01:31; Admin Dose 1 EA; Start 09/29/17 at 02:00 Dextrose/Sodium Chloride (D5-NS) 1,000 ml @ 20 mls/hr Q24H IV Last administered on 10/09/17 05:39; Admin Dose 20 MLS/HR; Start 09/28/17 at 19:00 Insulin Aspart (Novolog Insulin Pen) NOVOLOG *MILD* ALGORITHM Q4 SC Last administered on 10/09/17 14:22; Admin Dose 1 UNIT; Start 09/29/17 at 09:00 Collagenase (Santyl) 1 applic DAILY TOP Last administered on 10/09/17 09:24; Admin Dose 1 APPLIC; Start 09/29/17 at 12:00 Docusate Sodium (Colace Liquid Cup) 100 mg BID GTB Last administered on 09:18; Admin Dose 100 MG; Start 09/30/17 at 21:00 Multivitamins/ Minerals (Theragran-M) 1 tab DAILY GTB Last administered on 09:20; Admin Dose 1 TAB; Start 09/30/17 at 10:00 Lansoprazole (Prevacid) 30 mg DAILY@06 GTB Last administered on 10/09/17 05: 20; Admin Dose 30 MG; Start 09/30/17 at 12:15 Hydrogen Peroxide (Hydrogen Peroxide) 1 applic BID TOP Last administered on 09:23; Admin Dose 1 APPLIC; Start 09/30/17 at 21:00 Heparin Sodium (Porcine) (Heparin (5000 Units/0.5 ml)) 5,000 unit BID SC Last administered on 10/09/17 09:42; Admin Dose 5,000 UNIT; Start 10/01/17 at 21: 00 Brimonidine Tartrate (Alphagan P 0.1%) 1 drop BID BOTH EYES Last administered on 10/09/17 09:25; Admin Dose 1 DROP; Start 10/03/17 at 21:00 Silver Sulfadiazine (Thermazene 1% 25 Gm) 1 applic DAILY TOP Last administered on 10/09/17 09:21; Admin Dose 1 APPLIC; Start 10/05/17 at 11:00 Hydrocortisone 50 mg 50 mg Q8 IV Last administered on 10/09/17 13:36; Admin Dose 50 MG; Start 10/08/17 at 14:00 Daptomycin 290 mg/ Sodium Chloride 100 ml @ 200 mls/hr Q48H IVPB Last administered on 10/08/17 17:26; Admin Dose 200 MLS/HR; Start 10/08/17 at 18: 00 Colistimethate Sodium/Sodium Chloride (Coly-Mycin/NS) 100 ml @ 200 mls/hr Q24H IVPB Last administered on 10/08/17 14:11; Admin Dose 200 MLS/HR; Start 10/08 at 15:00 Miscellaneous Information (Pending [facility] Order For Wound Care) This patient reyes... PRN PRN XX WOUND CARE; Start 10/08/17 at 14:00 Influenza Virus Vaccine (Fluzone) 0.5 ml ONCE ONCE IM* ; Start 10/10/17 at 12: 00; Stop 10/10/17 at 12:01 Assessment/Plan Chief Complaint/Hosp Course SUBJECTIVE: No acute changes, remains lethargic, in no distress, increased anasarca, no fevers. INDWELLINGS: Trach, PEG, right subclavian permacath, right upper extremity midline ANTIMICROBIALS: 1. Daptomycin. 2. Colistin. MICROBIOLOGY: Wound cultures in [facility] grew Acinetobacter baumannii and VRE, as well as Klebsiella pneumoniae, ESBL and pseudomonas. Urine culture grew Dulce glabrata. PHYSICAL EXAMINATION: GENERAL: This is a chronically ill-appearing, fragile, debilitated, elderly man who is lethargic, in no distress. HEENT: Head atraumatic, normocephalic. Sclerae anicteric. Buccal mucosa dry. NECK: Supple. Tracheostomy present. CHEST: Rise symmetrical. Breath sounds diminished to bases. HEART: S1, S2. ABDOMEN: Distended, bowel tones hypoactive. EXTREMITIES: With bilateral edema. SKIN: With multiple wounds and severe anasarca, also penile and scrotal edema ASSESSMENT: 1. S/p septic shock. 2. Status post right femoral pseudoaneurysm repair. 3. Multiple chronic wounds with sacral osteomyelitis, status post debridement. 4. G-tube site cellulitis. 5. S/p nontoxic megacolon. 6. S/p Urinary tract infection. 8. Deep venous thrombosis, status post inferior vena cava filter placement. 9. Anemia. 10. Atrial fibrillation. 11. Failure to thrive. 12. End stage renal disease, hemodialysis dependent. 13. Acute encephalopathy==> CT brain neg PLAN: The patient remains unchanged. Continue present care, continue antibiotics for OM, local wound care, follow recommendations of specialists. Prognosis guarded DW staff Problems: CLAYTON SHANKAR NP Oct 09, 2017 14:24
[2017-10-09] MEDS: COLISTIMETHATE 75 MG in SOD CHLORIDE 0.9% 100 ML IVPB SCH (15:39)
--- NOTE | 2017-10-09 15:45 | CONS ---
Date/Time of Note Date/Time of Note DATE: 10/09/17 TIME: 15:44 Consult Date/Type/Reason Admit Date/Time Sep 27, 2017 at 21:00 Initial Consult Date 09/28/17 Type of Consultation: card Ordering Provider: PHILIPPE JUARES DO Subjective Cardiology follow up note S: D/ W staff and rhythm was reviewed. pt remains in Afib. his HR is under good control but pt still with frequent PVC and ventricular bigeminy still. also with short runs of VT/ torsades. d/w he remains lethargic and novnerbal now still on vent in ICU pt is off of levophed drip now and on tele. O: General: Thin. s/p trach on vent. no acute distress HEENT: NC/AT. pupils are equal. round. NECK: s/p trach. . no stridor. CV: irregularly irregular. systolic murmur; no gallop or rubs. PULM: no wheezing . + rhonchi. GI: SOFT, NT, ND, no rebound or guarding vascular: R fem s/p surgery Extremity: increased B/L LE edema. no clubbing. neuro: lethargic Psych: calm and pleasant rectal: deferred : normal male Derm: With diffuse ecchymosis throughout the body. CXR reviewed. ECHO: 1. Normal left ventricular systolic function. Normal left ventricular cavity size. Moderate concentric left ventricular hypertrophy. Ejection fraction is visually estimated at 65 %. Abnormal Diastolic Function. 2. Aortic sclerosis without stenosis. Objective Vital Signs Date Time Temp Pulse Resp B/P Pulse Ox O2 Delivery O2 Flow Rate FiO2 10/09/17 12:06 66 10/09/17 11:35 16 10/09/17 11:20 98.0 110/96 99 10/09/17 09:20 30 10/08/17 08:00 Mechanical Ventilator Intake and Output 10/08/17 10/08/17 10/09/17 15:00 23:00 07:00 Intake Total 240 ml 300 ml 20 ml Balance 240 ml 300 ml 20 ml Results/Medications Result Diagram: 10/09/17 0901 10/09/17 0901 Results 24 hrs Laboratory Tests Test 10/08/17 17:24 10/08/17 21:46 10/09/17 01:55 10/09/17 05:19 Bedside Glucose 150 132 149 118 Test 10/09/17 09:01 10/09/17 09:11 10/09/17 13:38 10/09/17 13:39 White Blood Count 13.7 #H Red Blood Count 3.19 L Hemoglobin 10.2 L Hematocrit 31.0 L Mean Corpuscular Volume 97.2 Mean Corpuscular Hemoglobin 32.0 Mean Corpuscular Hemoglobin Concent 32.9 Red Cell Distribution Width 21.0 H Platelet Count 81 #L Mean Platelet Volume Neutrophils % Segmented Neutrophils % (Manual) 84 H Band Neutrophils % (Manual) 1 Lymphocytes % Lymphocytes % (Manual) 3 L Monocytes % Monocytes % (Manual) 7 Eosinophils % Basophils % Metamyelocytes % (manual) 2 H Myelocytes % (Manual) 2 H Promyelocytes % (Manual) 1 H Nucleated Red Blood Cells % 1 H Neutrophils # Neutrophils # (Manual) 11.5 H Band Neutrophils # 0.1 Absolute Lymphocytes (Manual) 0.4 L Lymphocytes # Monocytes # Absolute Monocytes (Manual) 0.9 Eosinophils # Basophils # Metamyelocytes # 0.2 H Myelocytes # 0.2 H Promyelocytes # 0.1 H Nucleated Red Blood Cells # Platelet Estimate DECREASED Giant Platelets 1 H Polychromasia 3+ Hypochromasia 1+ Poikilocytosis 3+ Anisocytosis 2+ Macrocytosis 2+ Sodium Level 136 Potassium Level 5.5 H Chloride Level 100 Carbon Dioxide Level 26 Anion Gap 16 Blood Urea Nitrogen 73 H Creatinine 2.10 H Glucose Level 125 Calcium Level 8.5 Phosphorus Level 4.8 Magnesium Level 2.9 H Bedside Glucose 131 172 144 Medications Current Medications Hydromorphone HCl (Dilaudid) 0.5 mg Q4H PRN IV PAIN Last administered on 17:00; Admin Dose 0.5 MG; Start 09/27/17 at 23:00 Midodrine (Proamatine) 10 mg TID@ GTB Last administered on 10/09/17 13:36; Admin Dose 10 MG; Start 09/28/17 at 09:00 Ascorbic Acid (Vitamin C) 500 mg DAILY GTB Last administered on 10/09/17 09: 20; Admin Dose 500 MG; Start 09/28/17 at 09:00 Cholecalciferol (Vitamin D) 2,000 unit DAILY GTB Last administered on 09:21; Admin Dose 2,000 UNIT; Start 09/28/17 at 09:00 Digoxin (Digoxin) 0.125 mg DAILY GTB Last administered on 10/08/17 08:11; Admin Dose 0.125 MG; Start 09/28/17 at 09:00 Ferrous Sulfate (Feosol Liquid Cup) 300 mg DAILY GTB Last administered on 10/09 09:18; Admin Dose 300 MG; Start 09/28/17 at 09:00 Folic Acid (Folic Acid) 1 mg DAILY GTB Last administered on 10/09/17 09:20; Admin Dose 1 MG; Start 09/28/17 at 09:00 Acetaminophen/ Hydrocodone Bitart ([place] (5/325)) 1 tab DAILY GTB Last administered on 09/30/17 09:34; Admin Dose 1 TAB; Start 09/28/17 at 09:00; Status Future Hold Lactobacillus Acidophilus/ Rhamnosus (Culturelle) 1 cap BID GTB Last administered on 10/09/17 09:18; Admin Dose 1 CAP; Start 09/28/17 at 09:00 Sertraline HCl (Zoloft) 25 mg QHS GTB Last administered on 10/08/17 21:44; Admin Dose 25 MG; Start 09/28/17 at 21:00 Tramadol HCl (Ultram) 50 mg DAILY PRN GTB FOR WOUND CARE; Start 09/28/17 at 08 :00; Status Future Hold Tramadol HCl (Ultram) 50 mg Q8 GTB Last administered on 10/09/17 13:40; Admin Dose 50 MG; Start 09/28/17 at 14:00 Zolpidem Tartrate (Ambien) 5 mg QHS PRN GTB INSOMNIA; Start 09/28/17 at 08:00 Diagnostic Test (Pha) 1 ea 1 ea 02 XX Last administered on 10/08/17 01:31; Admin Dose 1 EA; Start 09/29/17 at 02:00 Dextrose/Sodium Chloride (D5-NS) 1,000 ml @ 20 mls/hr Q24H IV Last administered on 10/09/17 05:39; Admin Dose 20 MLS/HR; Start 09/28/17 at 19:00 Insulin Aspart (Novolog Insulin Pen) NOVOLOG *MILD* ALGORITHM Q4 SC Last administered on 10/09/17 14:22; Admin Dose 1 UNIT; Start 09/29/17 at 09:00 Collagenase (Santyl) 1 applic DAILY TOP Last administered on 10/09/17 09:24; Admin Dose 1 APPLIC; Start 09/29/17 at 12:00 Docusate Sodium (Colace Liquid Cup) 100 mg BID GTB Last administered on 09:18; Admin Dose 100 MG; Start 09/30/17 at 21:00 Multivitamins/ Minerals (Theragran-M) 1 tab DAILY GTB Last administered on 09:20; Admin Dose 1 TAB; Start 09/30/17 at 10:00 Lansoprazole (Prevacid) 30 mg DAILY@06 GTB Last administered on 10/09/17 05: 20; Admin Dose 30 MG; Start 09/30/17 at 12:15 Hydrogen Peroxide (Hydrogen Peroxide) 1 applic BID TOP Last administered on 09:23; Admin Dose 1 APPLIC; Start 09/30/17 at 21:00 Heparin Sodium (Porcine) (Heparin (5000 Units/0.5 ml)) 5,000 unit BID SC Last administered on 10/09/17 09:42; Admin Dose 5,000 UNIT; Start 10/01/17 at 21: 00 Brimonidine Tartrate (Alphagan P 0.1%) 1 drop BID BOTH EYES Last administered on 10/09/17 09:25; Admin Dose 1 DROP; Start 10/03/17 at 21:00 Silver Sulfadiazine (Thermazene 1% 25 Gm) 1 applic DAILY TOP Last administered on 10/09/17 09:21; Admin Dose 1 APPLIC; Start 10/05/17 at 11:00 Hydrocortisone 50 mg 50 mg Q8 IV Last administered on 10/09/17 13:36; Admin Dose 50 MG; Start 10/08/17 at 14:00 Daptomycin 290 mg/ Sodium Chloride 100 ml @ 200 mls/hr Q48H IVPB Last administered on 10/08/17 17:26; Admin Dose 200 MLS/HR; Start 10/08/17 at 18: 00 Colistimethate Sodium/Sodium Chloride (Coly-Mycin/NS) 100 ml @ 200 mls/hr Q24H IVPB Last administered on 11/21/17at 15:39; Admin Dose 200 MLS/HR; Start 10/08 at 15:00 Miscellaneous Information ([facility] This patient reyes... PRN PRN XX WOUND CARE; Start 10/08/17 at 14:00 Influenza Virus Vaccine (Fluzone) 0.5 ml ONCE ONCE IM* ; Start 10/10/17 at 12: 00; Stop 10/10/17 at 12:01 Assessment/Plan Chief Complaint/Hosp Course 1. septic SHOCK: BP is better now and off of pressors. 2. Afib: persistent/ chronic now. 3. hypoxemic resp failure: s/p trach vent dependent now. 4. hx anemia and GI bleed: off of any anticoagulation 5. 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 s/p multiple infections 8. dysphagia: s/p PEG 9. encephalopathy: 10. fluid overload/ CHF/ anasarca: ACUTE on chronic due to fluid overload and diastolic failure. 11. Ventricular arrhythmia and PVC/ VT torsades. Recommendations: Vent support will be continued for now. Hemodialysis will be managed by nephrology team .correction of electrolytes with assistance of HD cont Heart rate control Transfusion prn has been given. Patient currently off of full anticoagulation due to concern about history of severe anemia as well as GI bleed and OB positive stool. Head CT done 10/02/17 did not show any acute CVA prognosis is poor but pt is still full code per request. I have spoken to her to reconsider code statues. she is still thinking about it. . Thank you for his referral. I will continue to follow along with you. DIOR JEFFERSON MD [facility] Problems: DIOR JEFFERSON MD Oct 09, 2017 15:45
[2017-10-09] MEDS: SERTRALINE 50 MG TAB GTB SCH (21:54)
--- NOTE | 2017-10-09 22:09 | CONS ---
DATE OF ADMISSION: 09/27/2017 DATE OF CONSULTATION: GASTROINTESTINAL CONSULTATION HISTORY OF PRESENT ILLNESS: The patient is an 87-year-old man with aneurysmal repair, vent-dependen t respiratory failure, end-stage renal disease, is now in encephalopathy state. OBJECTIVE: GENERAL: Patient is lethargic, obtunded, does not communicate. VITAL SIGNS: Stable. ABDOMEN: Soft, mildly distended. G-tube is in place. There is no evidence of infection and is linn erating feeding. EXTREMITIES: There is edema of the right lower extremity. LUNGS: The patient is on vent. No . CENTRAL NERVOUS SYSTEM: Obtunded. LABORATORY DATA: WBC is 13.7, hematocrit is 31. BUN is 73, creatinine is 2, potassium is 5.5. Glu cose is 134, stable, under control. IMPRESSION: 1. Status post aneurysm repair. 2. Septic shock. 3. Encephalopathy. 4. Respiratory failure. 5. G-tube. 6. End-stage renal disease for which he is on dialysis. 7. Atrial fibrillation. 8. Anemia. 9. Nontoxic megacolon. 10. DVT status post IVC filter. PLAN: Continue present care. Continue nutritional support, dialysis and stop all narcotics and sed atives, and observe his mental status over a period of 48 hours after stopping the narcotics and sed atives. Dictated By: LIANNA JAUREGUI/NORM Conf#: [id number] DID#: [id number] CC: PHILIPPE JUARES DO;*EndCC*
[2017-10-10] VITALS (29 sets, daily range): BP systolic 86–116; BP diastolic 38–63; PULSE 40–75; RESP 12–20
[2017-10-10] MEDS: ACCU-CHEK XX SCH (02:00)
[2017-10-10] MEDS: INSULIN ASPART [NOVOLOG] 3 ML PEN SC SCH ×6 (02:23→21:34)
[2017-10-10] MEDS: traMADol 50 MG TAB GTB SCH ×3 (06:37→21:29)
[2017-10-10] MEDS: HYDROCORTISONE 100 MG INJ IV SCH ×4 (06:37→21:27)
[2017-10-10] MEDS: LANSOPRAZOLE 30 MG CAP GTB SCH (06:37)
[2017-10-10] MEDS: BRIMONIDINE 0.1% 5 ML OPH BOTH EYES SCH ×2 (06:37→21:27)
--- NOTE | 2017-10-10 08:29 | CONS ---
Date/Time of Note Date/Time of Note DATE: 10/10/17 TIME: 08:25 Consult Date/Type/Reason Admit Date/Time Sep 27, 2017 at 21:00 Initial Consult Date 09/28/17 Type of Consultation: card Ordering Provider: PHILIPPE JUARES DO Subjective Cardiology follow up note S: D/ W staff and rhythm was reviewed. pt remains in Afib. his HR is under good control but pt still with frequent PVC and ventricular bigeminy still. also with short runs of VT. no torsades overnight. pt remains lethargic and novnerbal now still on vent but out of ICU pt is off of levophed drip now and on tele. O: General: Thin. s/p trach on vent. no acute distress HEENT: NC/AT. pupils are equal. round. NECK: s/p trach. . no stridor. CV: irregularly irregular. systolic murmur; no gallop or rubs. PULM: no wheezing . + rhonchi. GI: SOFT, NT, ND, no rebound or guarding vascular: R fem s/p surgery Extremity: diffuse B/L LE and UE edema. . neuro: lethargic Psych: calm and pleasant rectal: deferred : normal male Derm: With diffuse ecchymosis throughout the body. CXR reviewed. ECHO: 1. Normal left ventricular systolic function. Normal left ventricular cavity size. Moderate concentric left ventricular hypertrophy. Ejection fraction is visually estimated at 65 %. Abnormal Diastolic Function. 2. Aortic sclerosis without stenosis. Objective Vital Signs Date Time Temp Pulse Resp B/P Pulse Ox O2 Delivery O2 Flow Rate FiO2 10/10/17 08:07 98.1 55 20 93/47 94 10/10/17 07:26 30 10/08/17 08:00 Mechanical Ventilator Intake and Output 10/09/17 10/09/17 10/10/17 14:59 22:59 06:59 Intake Total 400 ml 300 ml Output Total 1900 ml Balance -1500 ml 300 ml Results/Medications Result Diagram: 10/09/17 0910/09/17 09 Results 24 hrs Laboratory Tests Test 10/09/17 09:01 10/09/17 09:11 10/09/17 13:38 10/09/17 13:39 White Blood Count 13.7 #H Red Blood Count 3.19 L Hemoglobin 10.2 L Hematocrit 31.0 L Mean Corpuscular Volume 97.2 Mean Corpuscular Hemoglobin 32.0 Mean Corpuscular Hemoglobin Concent 32.9 Red Cell Distribution Width 21.0 H Platelet Count 81 #L Mean Platelet Volume Neutrophils % Segmented Neutrophils % (Manual) 84 H Band Neutrophils % (Manual) 1 Lymphocytes % Lymphocytes % (Manual) 3 L Monocytes % Monocytes % (Manual) 7 Eosinophils % Basophils % Metamyelocytes % (manual) 2 H Myelocytes % (Manual) 2 H Promyelocytes % (Manual) 1 H Nucleated Red Blood Cells % 1 H Neutrophils # Neutrophils # (Manual) 11.5 H Band Neutrophils # 0.1 Absolute Lymphocytes (Manual) 0.4 L Lymphocytes # Monocytes # Absolute Monocytes (Manual) 0.9 Eosinophils # Basophils # Metamyelocytes # 0.2 H Myelocytes # 0.2 H Promyelocytes # 0.1 H Nucleated Red Blood Cells # Platelet Estimate DECREASED Giant Platelets 1 H Polychromasia 3+ Hypochromasia 1+ Poikilocytosis 3+ Anisocytosis 2+ Macrocytosis 2+ Sodium Level 136 Potassium Level 5.5 H Chloride Level 100 Carbon Dioxide Level 26 Anion Gap 16 Blood Urea Nitrogen 73 H Creatinine 2.10 H Glucose Level 125 Calcium Level 8.5 Phosphorus Level 4.8 Magnesium Level 2.9 H Bedside Glucose 131 172 144 Test 10/09/17 16:39 10/09/17 21:52 10/10/17 02:19 10/10/17 06:35 Bedside Glucose 134 132 136 127 Medications Current Medications Hydromorphone HCl (Dilaudid) 0.5 mg Q4H PRN IV PAIN Last administered on 17:00; Admin Dose 0.5 MG; Start 09/27/17 at 23:00 Midodrine (Proamatine) 10 mg TID@,,17 GTB Last administered on 10/09/17 16:40; Admin Dose 10 MG; Start 09/28/17 at 09:00 Ascorbic Acid (Vitamin C) 500 mg DAILY GTB Last administered on 10/09/17 09: 20; Admin Dose 500 MG; Start 09/28/17 at 09:00 Cholecalciferol (Vitamin D) 2,000 unit DAILY GTB Last administered on 09:21; Admin Dose 2,000 UNIT; Start 09/28/17 at 09:00 Digoxin (Digoxin) 0.125 mg DAILY GTB Last administered on 10/08/17 08:11; Admin Dose 0.125 MG; Start 09/28/17 at 09:00 Ferrous Sulfate (Feosol Liquid Cup) 300 mg DAILY GTB Last administered on 10/09 09:18; Admin Dose 300 MG; Start 09/28/17 at 09:00 Folic Acid (Folic Acid) 1 mg DAILY GTB Last administered on 10/09/17 09:20; Admin Dose 1 MG; Start 09/28/17 at 09:00 Acetaminophen/ Hydrocodone Bitart ([place] (5/325)) 1 tab DAILY GTB Last administered on 09/30/17 09:34; Admin Dose 1 TAB; Start 09/28/17 at 09:00; Status Future Hold Lactobacillus Acidophilus/ Rhamnosus (Culturelle) 1 cap BID GTB Last administered on 10/09/17 21:54; Admin Dose 1 CAP; Start 09/28/17 at 09:00 Sertraline HCl (Zoloft) 25 mg QHS GTB Last administered on 10/09/17 21:54; Admin Dose 25 MG; Start 09/28/17 at 21:00 Tramadol HCl (Ultram) 50 mg DAILY PRN GTB FOR WOUND CARE; Start 09/28/17 at 08 :00; Status Future Hold Tramadol HCl (Ultram) 50 mg Q8 GTB Last administered on 10/10/17 06:37; Admin Dose 50 MG; Start 09/28/17 at 14:00 Zolpidem Tartrate (Ambien) 5 mg QHS PRN GTB INSOMNIA; Start 09/28/17 at 08:00 Diagnostic Test (Pha) 1 ea 1 ea 02 XX Last administered on 10/08/17 01:31; Admin Dose 1 EA; Start 09/29/17 at 02:00 Dextrose/Sodium Chloride (D5-NS) 1,000 ml @ 20 mls/hr Q24H IV Last administered on 10/09/17 05:39; Admin Dose 20 MLS/HR; Start 09/28/17 at 19:00 Insulin Aspart (Novolog Insulin Pen) NOVOLOG *MILD* ALGORITHM Q4 SC Last administered on 10/09/17 14:22; Admin Dose 1 UNIT; Start 09/29/17 at 09:00 Collagenase (Santyl) 1 applic DAILY TOP Last administered on 10/09/17 09:24; Admin Dose 1 APPLIC; Start 09/29/17 at 12:00 Docusate Sodium (Colace Liquid Cup) 100 mg BID GTB Last administered on 21:54; Admin Dose 100 MG; Start 09/30/17 at 21:00 Multivitamins/ Minerals (Theragran-M) 1 tab DAILY GTB Last administered on 09:20; Admin Dose 1 TAB; Start 09/30/17 at 10:00 Lansoprazole (Prevacid) 30 mg DAILY@06 GTB Last administered on 10/10/17 06: 37; Admin Dose 30 MG; Start 09/30/17 at 12:15 Hydrogen Peroxide (Hydrogen Peroxide) 1 applic BID TOP Last administered on 21:54; Admin Dose 1 APPLIC; Start 09/30/17 at 21:00 Heparin Sodium (Porcine) (Heparin (5000 Units/0.5 ml)) 5,000 unit BID SC Last administered on 10/09/17 21:56; Admin Dose 5,000 UNIT; Start 10/01/17 at 21: 00 Brimonidine Tartrate (Alphagan P 0.1%) 1 drop BID BOTH EYES Last administered on 10/10/17 06:37; Admin Dose 1 DROP; Start 10/03/17 at 21:00 Silver Sulfadiazine (Thermazene 1% 25 Gm) 1 applic DAILY TOP Last administered on 10/09/17 09:21; Admin Dose 1 APPLIC; Start 10/05/17 at 11:00 Hydrocortisone 50 mg 50 mg Q8 IV Last administered on 10/10/17 06:37; Admin Dose 50 MG; Start 10/08/17 at 14:00 Daptomycin 290 mg/ Sodium Chloride 100 ml @ 200 mls/hr Q48H IVPB Last administered on 10/08/17 17:26; Admin Dose 200 MLS/HR; Start 10/08/17 at 18: 00 Colistimethate Sodium/Sodium Chloride (Coly-Mycin/NS) 100 ml @ 200 mls/hr Q24H IVPB Last administered on 10/09/17 15:39; Admin Dose 200 MLS/HR; Start 10/08 at 15:00 Miscellaneous Information (Pending [facility] Order For Wound Care) This patient reyes... PRN PRN XX WOUND CARE; Start 10/08/17 at 14:00 Influenza Virus Vaccine (Fluzone) 0.5 ml ONCE ONCE IM* ; Start 10/10/17 at 12: 00; Stop 10/10/17 at 12:01 Assessment/Plan Chief Complaint/Hosp Course 1. S/P septic SHOCK: BP is better now and off of pressors. 2. Afib: persistent/ chronic now. 3. hypoxemic resp failure: s/p trach vent dependent now. 4. hx anemia and GI bleed: off of any anticoagulation 5. 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 s/p multiple infections 8. dysphagia: s/p PEG 9. encephalopathy: 10. fluid overload/ CHF/ anasarca: ACUTE on chronic due to fluid overload and diastolic failure. 11. Ventricular arrhythmia and PVC/ VT and even torsades: not a good candidate for amiodarone due to prolonged QT and episodes of torsades. Recommendations: Vent support will be continued for now. Hemodialysis will be managed by nephrology team .correction of electrolytes with assistance of HD cont Heart rate control Transfusion prn has been given. Patient currently off of full anticoagulation due to concern about history of severe anemia as well as GI bleed and OB positive stool. prognosis is poor but pt is still full code per request. I have spoken to her before to reconsider code statues. she is still thinking about it. Thank you for his referral. I will continue to follow along with you. DIOR JEFFERSON MD [facility] Problems: DIOR JEFFERSON MD Oct 10, 2017 08:29
[2017-10-10 08:45] LABS: ABNORMAL IP MESSAGE 1; BASOPHILS % 0.1 % (0.0-2.0); EOSINOPHILS % 0.1 % (0.0-7.0); HEMATOCRIT 31.9 % (42.0-52.0); HEMOGLOBIN 10.1 g/dl (14.0-18.0); LYMPHOCYTES # 0.7 10^3/ul (0.8-2.9); LYMPHOCYTES % 4.7 % (15.0-51.0); MEAN CORPUSCULAR HEMOGLOBIN 31.9 pg (29.0-33.0); MEAN CORPUSCULAR HGB CONC 31.7 g/dl (32.0-37.0); MEAN CORPUSCULAR VOLUME 100.6 fl (82.0-101.0); MONOCYTE # 1.6 10^3/ul (0.3-0.9); MONOCYTES % 11.4 % (0.0-11.0); NEUTROPHIL # 11.2 10^3/ul (1.6-7.5); NUCLEATED RED BLOOD CELLS # 0.2 10^3/ul (0.0-0.0); NUCLEATED RED BLOOD CELLS% 1.4 /100WBC (0.0-0.0); PLATELET COUNT 63 10^3/UL (140-415); POSITIVE DIFF @See below; RED BLOOD COUNT 3.17 10^6/ul (4.70-6.10); RED CELL DISTRIBUTION WIDTH 21.2 % (11.5-14.5); WHITE BLOOD COUNT 13.9 10^3/ul (4.8-10.8)
[2017-10-10] MEDS: DIGOXIN 0.125 MG TAB GTB SCH (09:00)
[2017-10-10] MEDS: DOCUSATE SODIUM 10 MG/ML (10ML CUP) GTB SCH ×2 (09:03→21:25)
[2017-10-10] MEDS: ASCORBIC ACID 500 MG TAB GTB SCH (09:03)
[2017-10-10] MEDS: FERROUS SULFATE 60 MG/ML 5ML CUP GTB SCH (09:03)
[2017-10-10] MEDS: LACTOBACILLUS RHAMNOSUS CAP GTB SCH ×2 (09:04→21:28)
[2017-10-10] MEDS: CHOLECALCIFEROL 2,000 UNIT CAP GTB SCH (09:04)
[2017-10-10] MEDS: HYDROGEN PEROXIDE 118 ML TOP SCH ×2 (09:04→21:27)
[2017-10-10] MEDS: FOLIC ACID 1 MG TAB GTB SCH (09:04)
[2017-10-10] MEDS: MULTIVITAMINS/MINERALS TAB GTB SCH ×2 (09:04→21:25)
[2017-10-10] MEDS: SILVER SULFADIAZINE 1% 25 GM CR TOP SCH (09:05)
[2017-10-10] MEDS: COLLAGENASE 30 GM TUBE TOP SCH (09:06)
[2017-10-10 09:09] LABS: CALCIUM 8.2 mg/dl (8.4-10.2); CREATININE 1.68 mg/dl (0.61-1.24); MAGNESIUM 2.7 mg/dl (1.7-2.5); PHOSPHORUS 4.2 mg/dl (2.5-4.9); POTASSIUM 4.7 mmol/L (3.5-5.1)
[2017-10-10] MEDS: HEPARIN 5,000 UNIT/0.5 ML VIAL SC SCH ×2 (09:09→22:39)
[2017-10-10] MEDS: MIDODRINE 5 MG TAB GTB SCH ×3 (09:26→17:03)
--- NOTE | 2017-10-10 09:37 | PN ---
DATE: 10/10/2017 SUBJECTIVE: The patient remains obtunded. The patient continues to have runs of nonsustained V-tac h. No other acute events noted. OBJECTIVE: VITAL SIGNS: Blood pressure 93/47, pulse 55, respirations 20, temperature 98.1. HEENT: Head is normocephalic. NECK: Supple. HEART: Regular rate. LUNGS: Show diminished breath sounds at the base. ABDOMEN: Soft, nontender to palpation. No rebound or guarding. EXTREMITIES: Negative for clubbing, cyanosis. Positive edema, diffuse anasarca. DERMATOLOGIC: No rashes. MUSCULOSKELETAL: No joint effusions. NEUROLOGIC: No change in exam. MEDICATIONS: The patient's medications have been reviewed. LABORATORY DATA: Currently pending. ASSESSMENT AND PLAN: 1. Sepsis, status post shock secondary to pneumonia and underlying wounds. Continue current antibi otic regimen. 2. Arrhythmia with nonsustained ventricular tachycardia. Continue current medical management. Fol low up with cardiology. 3. Ventilator-dependent respiratory failure. Vent settings and ABG is reviewed. Continue to monit or. 4. Right pseudoaneurysm, status post repair. Continue wound care. 5. Acute encephalopathy, etiology toxic metabolic. No significant change in mental status. Contin ue to monitor. 6. Endstage renal disease. Continue hemodialysis for solute clearance and volume removal. 7. Volume overload secondary to congestive heart failure, endstage renal disease. Continue ultrafi ltration with dialysis. 8. Mineral bone disorder. Monitor calcium and phosphorus levels. 9. Hyponatremia, improved. 10. Dysphagia, status post percutaneous endoscopic gastrostomy tube feedings. 11. Decubitus wound. Continue wound care. 12. Gastrointestinal and deep venous thrombosis prophylaxis. DISPOSITION: The patient's prognosis is overall poor, pending transfer to [facility]. Dictated By: PHILIPPE WILSON/NORM Conf#: [id number] DID#: [id number]
[2017-10-10] MEDS ORDERED: INFLUENZA VIRUS VACCINE 0.5 ML SYG IM* ONE (12:00)
--- NOTE | 2017-10-10 12:05 | RADRPT ---
PROCEDURE: CT Brain without contrast. CLINICAL INDICATION: Altered mental status. Neurological deficit. TECHNIQUE: A CT of the brain was performed on multidetector high-resolution CT scanner utilizing a xial sections from the skull base through the vertex without contrast. The scan was reviewed in sof t tissue brain and high frequency resolution bone algorithm windows. Images were reviewed on a high -resolution PACS workstation. One or more the following does reduction techniques were utilized: Aut omated exposure control, adjustment of the mA/ or kV according to patient's size, or use of iterativ e reconstruction technique. The exam CTDI = 43.16 mGy and the DLP = 720.23 mGy-cm. DICOM images are available. COMPARISON: Brain CT 10/02/2017. FINDINGS: The ventricles and sulci are mildly to moderately prominent indicative of volume loss. There is no intracranial hemorrhage, mass effect or midline shift. No abnormal intra-axial or extra-axial fluid collections are seen. The weiner/white matter differentiation is preserved. There are moderate foci of hypoattenuation in the white matter, which are nonspecific in etiology bu t likely reflect chronic small vessel ischemic changes. There are moderate intracranial vascular ca lcifications consistent with atherosclerosis. The visualized paranasal sinuses demonstrate persisten t partial opacification of the right sphenoid sinus with air fluid level. Persistent partial opacifi cation of bilateral mastoid air cells, right greater than left with mild interval progression. IMPRESSION: 1. No acute intracranial hemorrhage, transcortical infarction or mass effect. Please note MRI is mo re sensitive for detection of acute ischemia and can be obtained as clinically warranted. 2. Moderate intracranial atherosclerosis and chronic small vessel ischemic changes. 3. Mild to moderate generalized cerebral and mild cerebellar volume loss. 4. Mild interval progression of partial opacification of bilateral mastoid air cells. Persistent partial opacification of the right sphenoid sinus with air fluid level, correlate for acu te sinusitis. RPTAT: HFN .Bony Winston MD, Date Time Electronically viewed and signed by .Bony Winston MD, MD on 10/10/2017 12:05 .N/
--- NOTE | 2017-10-10 13:56 | CONS ---
Date/Time of Note Date/Time of Note DATE: 10/10/17 TIME: 13:54 Consult Date/Type/Reason Admit Date/Time Sep 27, 2017 at 21:00 Initial Consult Date 09/28/17 Reason for Consultation Pulmonary Ordering Provider: PHILIPPE JUARES DO Subjective Patient comfortable. No new events. Objective Vital Signs Date Time Temp Pulse Resp B/P Pulse Ox O2 Delivery O2 Flow Rate FiO2 10/10/17 13:00 67 13 100 30 10/10/17 12:30 98.3 114/55 10/08/17 08:00 Mechanical Ventilator Intake and Output 10/09/17 10/09/17 10/10/17 14:59 22:59 06:59 Intake Total 400 ml 300 ml Output Total 1900 ml Balance -1500 ml 300 ml Exam GENERAL: Elderly gentleman comfortable at rest on mechanical ventilation. VITAL SIGNS: per chart NECK: Supple. No JVD or lymphadenopathy. CARDIAC EXAM: S1, S2. No added sounds or murmurs. CHEST: clear bilaterally, No added sounds, rales or wheezes ABDOMEN: Soft, nontender. No guarding or rebound. EXTREMITIES: No cyanosis, clubbing or edema. NEUROLOGIC: Generalized weakness. No focal deficits. Results/Medications Result Diagram: 10/10/17 0722 10/10/17 0722 Results 24 hrs Laboratory Tests Test 10/09/17 16:39 10/09/17 21:52 10/10/17 02:19 10/10/17 06:35 Bedside Glucose 134 132 136 127 Test 10/10/17 07:22 10/10/17 09:17 10/10/17 13:06 White Blood Count 13.9 H Red Blood Count 3.17 L Hemoglobin 10.1 L Hematocrit 31.9 L Mean Corpuscular Volume 100.6 Mean Corpuscular Hemoglobin 31.9 Mean Corpuscular Hemoglobin Concent 31.7 L Red Cell Distribution Width 21.2 H Platelet Count 63 #L Mean Platelet Volume Neutrophils % 81.0 H Lymphocytes % 4.7 L Monocytes % 11.4 H Eosinophils % 0.1 Basophils % 0.1 Nucleated Red Blood Cells % 1.4 H Neutrophils # 11.2 H Lymphocytes # 0.7 L Monocytes # 1.6 H Eosinophils # 0.0 Basophils # 0.0 Nucleated Red Blood Cells # 0.2 H Sodium Level 136 Potassium Level 4.7 Chloride Level 98 Carbon Dioxide Level 30 Anion Gap 13 Blood Urea Nitrogen 61 H Creatinine 1.68 H Glucose Level 114 Calcium Level 8.2 L Phosphorus Level 4.2 Magnesium Level 2.7 H Bedside Glucose 123 160 Medications Current Medications Hydromorphone HCl (Dilaudid) 0.5 mg Q4H PRN IV PAIN Last administered on 17:00; Admin Dose 0.5 MG; Start 09/27/17 at 23:00 Midodrine (Proamatine) 10 mg TID@ GTB Last administered on 10/10/17 13:07; Admin Dose 10 MG; Start 09/28/17 at 09:00 Ascorbic Acid (Vitamin C) 500 mg DAILY GTB Last administered on 10/10/17 09: 03; Admin Dose 500 MG; Start 09/28/17 at 09:00 Cholecalciferol (Vitamin D) 2,000 unit DAILY GTB Last administered on 09:04; Admin Dose 2,000 UNIT; Start 09/28/17 at 09:00 Digoxin (Digoxin) 0.125 mg DAILY GTB Last administered on 10/08/17 08:11; Admin Dose 0.125 MG; Start 09/28/17 at 09:00 Ferrous Sulfate (Feosol Liquid Cup) 300 mg DAILY GTB Last administered on 10/10 09:03; Admin Dose 300 MG; Start 09/28/17 at 09:00 Folic Acid (Folic Acid) 1 mg DAILY GTB Last administered on 10/10/17 09:04; Admin Dose 1 MG; Start 09/28/17 at 09:00 Acetaminophen/ Hydrocodone Bitart ([place] (5/325)) 1 tab DAILY GTB Last administered on 09/30/17 09:34; Admin Dose 1 TAB; Start 09/28/17 at 09:00; Status Future Hold Lactobacillus Acidophilus/ Rhamnosus (Culturelle) 1 cap BID GTB Last administered on 10/10/17 09:04; Admin Dose 1 CAP; Start 09/28/17 at 09:00 Sertraline HCl (Zoloft) 25 mg QHS GTB Last administered on 10/09/17 21:54; Admin Dose 25 MG; Start 09/28/17 at 21:00 Tramadol HCl (Ultram) 50 mg DAILY PRN GTB FOR WOUND CARE; Start 09/28/17 at 08 :00; Status Future Hold Tramadol HCl (Ultram) 50 mg Q8 GTB Last administered on 10/10/17 06:37; Admin Dose 50 MG; Start 09/28/17 at 14:00 Zolpidem Tartrate (Ambien) 5 mg QHS PRN GTB INSOMNIA; Start 09/28/17 at 08:00 Diagnostic Test (Pha) 1 ea 1 ea 02 XX Last administered on 10/08/17 01:31; Admin Dose 1 EA; Start 09/29/17 at 02:00 Dextrose/Sodium Chloride (D5-NS) 1,000 ml @ 20 mls/hr Q24H IV Last administered on 10/09/17 05:39; Admin Dose 20 MLS/HR; Start 09/28/17 at 19:00 Insulin Aspart (Novolog Insulin Pen) NOVOLOG *MILD* ALGORITHM Q4 SC Last administered on 10/10/17 13:14; Admin Dose 1 UNIT; Start 09/29/17 at 09:00 Collagenase (Santyl) 1 applic DAILY TOP Last administered on 10/10/17 09:06; Admin Dose 1 APPLIC; Start 09/29/17 at 12:00 Docusate Sodium (Colace Liquid Cup) 100 mg BID GTB Last administered on 09:03; Admin Dose 100 MG; Start 09/30/17 at 21:00 Multivitamins/ Minerals (Theragran-M) 1 tab DAILY GTB Last administered on 09:04; Admin Dose 1 TAB; Start 09/30/17 at 10:00 Lansoprazole (Prevacid) 30 mg DAILY@06 GTB Last administered on 10/10/17 06: 37; Admin Dose 30 MG; Start 09/30/17 at 12:15 Hydrogen Peroxide (Hydrogen Peroxide) 1 applic BID TOP Last administered on 09:04; Admin Dose 1 APPLIC; Start 09/30/17 at 21:00 Heparin Sodium (Porcine) (Heparin (5000 Units/0.5 ml)) 5,000 unit BID SC Last administered on 10/10/17 09:09; Admin Dose 5,000 UNIT; Start 10/01/17 at 21: 00 Brimonidine Tartrate (Alphagan P 0.1%) 1 drop BID BOTH EYES Last administered on 10/10/17 06:37; Admin Dose 1 DROP; Start 10/03/17 at 21:00 Silver Sulfadiazine (Thermazene 1% 25 Gm) 1 applic DAILY TOP Last administered on 10/10/17 09:05; Admin Dose 1 APPLIC; Start 10/05/17 at 11:00 Hydrocortisone 50 mg 50 mg Q8 IV Last administered on 10/10/17 13:08; Admin Dose 50 MG; Start 10/08/17 at 14:00 Daptomycin 290 mg/ Sodium Chloride 100 ml @ 200 mls/hr Q48H IVPB Last administered on 10/08/17 17:26; Admin Dose 200 MLS/HR; Start 10/08/17 at 18: 00 Colistimethate Sodium/Sodium Chloride (Coly-Mycin/NS) 100 ml @ 200 mls/hr Q24H IVPB Last administered on 10/09/17 15:39; Admin Dose 200 MLS/HR; Start 10/08 at 15:00 Miscellaneous Information (Pending [facility] Order For Wound Care) This patient reyes... PRN PRN XX WOUND CARE; Start 10/08/17 at 14:00 Assessment/Plan Chief Complaint/Hosp Course Assessment 1. Patient admitted for repair of right femoral artery pseudoaneurysm status post repair. 2. Status post septic shock on mechanical ventilation. Possible component of adrenal insufficiency. 3. Dysphagia with G-tube 4. End-stage renal failure on hemodialysis 5. Idiopathic pulmonary fibrosis. Chronic respiratory failure on mechanical ventilation 6. Encephalopathy possible toxic metabolic. CT head demonstrates no acute intracranial pathology. Plan 1. Continue mechanical ventilation 2. Continue antibiotics decrease steroids 3. Titrate vasopressors to keep map greater than 65 4. Would consider not removing fluid during hemodialysis as patient remains vasopressor dependent Transfer back to [place] Problems: ANGELINA TRUJILLO MD, [facility] Oct 10, 2017 13:56
--- NOTE | 2017-10-10 14:57 | CONS ---
Date/Time of Note Date/Time of Note DATE: 10/10/17 TIME: 14:56 Assessment/Plan Assessment/Plan Chief Complaint/Hosp Course SUBJECTIVE: No acute changes, remains noncommunicative, in no distress, no fevers. and son at bedside. Patient had a repeat CT brain this morning INDWELLINGS: Trach, PEG, right subclavian permacath, right upper extremity midline ANTIMICROBIALS: 1. Daptomycin. 2. Colistin. MICROBIOLOGY: Wound cultures in [facility] grew Acinetobacter baumannii and VRE, as well as Klebsiella pneumoniae, ESBL and pseudomonas. Urine culture grew Dulce glabrata. PHYSICAL EXAMINATION: GENERAL: This is a chronically ill-appearing, fragile, debilitated, elderly man who is lethargic, in no distress. HEENT: Head atraumatic, normocephalic. Sclerae anicteric. Buccal mucosa dry. NECK: Supple. Tracheostomy present. CHEST: Rise symmetrical. Breath sounds diminished to bases. HEART: S1, S2. ABDOMEN: Distended, bowel tones hypoactive. EXTREMITIES: With bilateral edema. SKIN: With multiple wounds and severe anasarca, also penile and scrotal edema ASSESSMENT: 1. S/p septic shock. 2. Status post right femoral pseudoaneurysm repair. 3. Multiple chronic wounds with sacral osteomyelitis, status post debridement. 4. G-tube site cellulitis. 5. S/p nontoxic megacolon. 6. S/p Urinary tract infection. 8. Deep venous thrombosis, status post inferior vena cava filter placement. 9. Anemia. 10. Atrial fibrillation. 11. Failure to thrive. 12. End stage renal disease, hemodialysis dependent. 13. Acute encephalopathy==> pending repeat CT brain PLAN: The patient remains unchanged. Continue present care, continue antibiotics for OM, local wound care, follow recommendations of specialists. Prognosis guarded [facility] staff Problems: Consultation Date/Type/Reason Admit Date/Time Sep 27, 2017 at 21:00 Initial Consult Date 09/28/17 Type of Consultation: ID Referring Provider: PHILIPPE JUARES DO Exam/Review of Systems Vital Signs Vitals Vital Signs Date Time Temp Pulse Resp B/P Pulse Ox O2 Delivery O2 Flow Rate FiO2 10/10/17 13:00 67 13 100 30 10/10/17 12:30 98.3 114/55 10/08/17 08:00 Mechanical Ventilator Intake and Output 10/09/17 10/09/17 10/10/17 14:59 22:59 06:59 Intake Total 400 ml 300 ml Output Total 1900 ml Balance -1500 ml 300 ml Results Result Diagram: 10/10/1772110/10/17721 Results 24 hrs Laboratory Tests Test 10/09/17 16:39 10/09/17 21:52 10/10/17 02:19 10/10/17 06:35 Bedside Glucose 134 132 136 127 Test 10/10/17 07:22 10/10/17 09:17 10/10/17 13:06 White Blood Count 13.9 H Red Blood Count 3.17 L Hemoglobin 10.1 L Hematocrit 31.9 L Mean Corpuscular Volume 100.6 Mean Corpuscular Hemoglobin 31.9 Mean Corpuscular Hemoglobin Concent 31.7 L Red Cell Distribution Width 21.2 H Platelet Count 63 #L Mean Platelet Volume Neutrophils % 81.0 H Lymphocytes % 4.7 L Monocytes % 11.4 H Eosinophils % 0.1 Basophils % 0.1 Nucleated Red Blood Cells % 1.4 H Neutrophils # 11.2 H Lymphocytes # 0.7 L Monocytes # 1.6 H Eosinophils # 0.0 Basophils # 0.0 Nucleated Red Blood Cells # 0.2 H Sodium Level 136 Potassium Level 4.7 Chloride Level 98 Carbon Dioxide Level 30 Anion Gap 13 Blood Urea Nitrogen 61 H Creatinine 1.68 H Glucose Level 114 Calcium Level 8.2 L Phosphorus Level 4.2 Magnesium Level 2.7 H Bedside Glucose 123 160 Medications Medications Current Medications Hydromorphone HCl (Dilaudid) 0.5 mg Q4H PRN IV PAIN Last administered on 17:00; Admin Dose 0.5 MG; Start 09/27/17 at 23:00 Midodrine (Proamatine) 10 mg TID@,,17 GTB Last administered on 10/10/17 13:07; Admin Dose 10 MG; Start 09/28/17 at 09:00 Ascorbic Acid (Vitamin C) 500 mg DAILY GTB Last administered on 10/10/17 09: 03; Admin Dose 500 MG; Start 09/28/17 at 09:00 Cholecalciferol (Vitamin D) 2,000 unit DAILY GTB Last administered on 09:04; Admin Dose 2,000 UNIT; Start 09/28/17 at 09:00 Digoxin (Digoxin) 0.125 mg DAILY GTB Last administered on 10/08/17 08:11; Admin Dose 0.125 MG; Start 09/28/17 at 09:00 Ferrous Sulfate (Feosol Liquid Cup) 300 mg DAILY GTB Last administered on 10/10 09:03; Admin Dose 300 MG; Start 09/28/17 at 09:00 Folic Acid (Folic Acid) 1 mg DAILY GTB Last administered on 10/10/17 09:04; Admin Dose 1 MG; Start 09/28/17 at 09:00 Acetaminophen/ Hydrocodone Bitart ([place] (5/325)) 1 tab DAILY GTB Last administered on 09/30/17 09:34; Admin Dose 1 TAB; Start 09/28/17 at 09:00; Status Future Hold Lactobacillus Acidophilus/ Rhamnosus (Culturelle) 1 cap BID GTB Last administered on 10/10/17 09:04; Admin Dose 1 CAP; Start 09/28/17 at 09:00 Sertraline HCl (Zoloft) 25 mg QHS GTB Last administered on 10/09/17 21:54; Admin Dose 25 MG; Start 09/28/17 at 21:00 Tramadol HCl (Ultram) 50 mg DAILY PRN GTB FOR WOUND CARE; Start 09/28/17 at 08 :00; Status Future Hold Tramadol HCl (Ultram) 50 mg Q8 GTB Last administered on 10/10/17 06:37; Admin Dose 50 MG; Start 09/28/17 at 14:00 Zolpidem Tartrate (Ambien) 5 mg QHS PRN GTB INSOMNIA; Start 09/28/17 at 08:00 Diagnostic Test (Pha) 1 ea 1 ea 02 XX Last administered on 10/08/17 01:31; Admin Dose 1 EA; Start 09/29/17 at 02:00 Dextrose/Sodium Chloride (D5-NS) 1,000 ml @ 20 mls/hr Q24H IV Last administered on 10/09/17 05:39; Admin Dose 20 MLS/HR; Start 09/28/17 at 19:00 Insulin Aspart (Novolog Insulin Pen) NOVOLOG *MILD* ALGORITHM Q4 SC Last administered on 10/10/17 13:14; Admin Dose 1 UNIT; Start 09/29/17 at 09:00 Collagenase (Santyl) 1 applic DAILY TOP Last administered on 10/10/17 09:06; Admin Dose 1 APPLIC; Start 09/29/17 at 12:00 Docusate Sodium (Colace Liquid Cup) 100 mg BID GTB Last administered on 09:03; Admin Dose 100 MG; Start 09/30/17 at 21:00 Multivitamins/ Minerals (Theragran-M) 1 tab DAILY GTB Last administered on 09:04; Admin Dose 1 TAB; Start 09/30/17 at 10:00 Lansoprazole (Prevacid) 30 mg DAILY@06 GTB Last administered on 10/10/17 06: 37; Admin Dose 30 MG; Start 09/30/17 at 12:15 Hydrogen Peroxide (Hydrogen Peroxide) 1 applic BID TOP Last administered on 09:04; Admin Dose 1 APPLIC; Start 09/30/17 at 21:00 Heparin Sodium (Porcine) (Heparin (5000 Units/0.5 ml)) 5,000 unit BID SC Last administered on 10/10/17 09:09; Admin Dose 5,000 UNIT; Start 10/01/17 at 21: 00 Brimonidine Tartrate (Alphagan P 0.1%) 1 drop BID BOTH EYES Last administered on 10/10/17 06:37; Admin Dose 1 DROP; Start 10/03/17 at 21:00 Silver Sulfadiazine 1 applic 1 applic DAILY TOP Last administered on 09:05; Admin Dose 1 APPLIC; Start 10/05/17 at 11:00 Daptomycin 290 mg/ Sodium Chloride 100 ml @ 200 mls/hr Q48H IVPB Last administered on 10/08/17 17:26; Admin Dose 200 MLS/HR; Start 10/08/17 at 18: 00 Colistimethate Sodium/Sodium Chloride (Coly-Mycin/NS) 100 ml @ 200 mls/hr Q24H IVPB Last administered on 10/09/17 15:39; Admin Dose 200 MLS/HR; Start 10/08 at 15:00 Miscellaneous Information (Pending Santyl Order For Wound Care) This patient reyes... PRN PRN XX WOUND CARE; Start 10/08/17 at 14:00 Hydrocortisone (Solu-Cortef) 25 mg Q8 IV ; Start 10/10/17 at 14:00 CLAYTON SHANKAR NP Oct 10, 2017 14:57
[2017-10-10] MEDS ORDERED: ALBUMIN HUMAN 25% 100 ML IV ONE (15:30)
[2017-10-10] MEDS: COLISTIMETHATE 75 MG in SOD CHLORIDE 0.9% 100 ML IVPB SCH (15:40)
[2017-10-10] MEDS: DAPTOMYCIN IVPB SCH (17:01)
[2017-10-10] MEDS: SOD CHLORIDE 0.9% IVPB SCH (17:01)
--- NOTE | 2017-10-10 19:35 | CONS ---
Date/Time of Note Date/Time of Note DATE: 10/10/17 TIME: 19:33 Assessment/Plan Assessment/Plan Additional Assessment/Plan IMPRESSION: 1. Status post aneurysm repair. 2. Septic shock. 3. Encephalopathy. CT scan of the brain no acute pathology 4. Respiratory failure. 5. G-tube. 6. End-stage renal disease for which he is on dialysis. 7. Atrial fibrillation. 8. Anemia. 9. Nontoxic megacolon. 10. DVT status post IVC filter. PLAN: Continue all supportive care Continue dialysis on vent support Antibiotic as per ID [place] flush as needed for abdominal distention Consultation Date/Type/Reason Admit Date/Time Sep 27, 2017 at 21:00 Initial Consult Date 09/28/17 Type of Consultation: ID Referring Provider: PHILIPPE JUARES DO 24 HR Interval Summary Free Text/Dictation Patient is still mentally obtunded Subjective hx not possible: pt non-verbal Exam/Review of Systems Vital Signs Vitals Vital Signs Date Time Temp Pulse Resp B/P Pulse Ox O2 Delivery O2 Flow Rate FiO2 10/10/17 17:43 52 14 99 30 10/10/17 17:00 93/53 10/10/17 12:30 98.3 10/08/17 08:00 Mechanical Ventilator Intake and Output 10/09/17 10/09/17 10/10/17 15:00 23:00 07:00 Intake Total 400 ml 300 ml 240 ml Output Total 1900 ml Balance -1500 ml 300 ml 240 ml Exam Constitutional: alert, oriented, well developed Psych: nl mood/affect, no complaints Head: atraumatic, normocephalic Eyes: EOMI, PERRL, nl conjunctiva, nl lids, nl sclera ENMT: nl external ears & nose, nl lips & teeth, nl nasal mucosa & septum Neck: non-tender, supple Respiratory: clear to auscultation, normal air movement Cardiovascular: nl pulses, regular rate and rhythm Gastrointestinal: nl liver, spleen, non-tender, soft Musculoskeletal: nl extremities to inspection, nl gait and stance Extremities: normal pulses Neurological: [employer] II-XII intact, nl mental status, nl speech, nl strength Skin: nl turgor, No rash or lesions Lymph: nl lymph nodes Results Result Diagram: 10/10/1722 10/10/1722 Results 24 hrs Laboratory Tests Test 10/09/17 21:52 10/10/17 02:19 10/10/17 06:35 10/10/17 07:22 Bedside Glucose 132 136 127 White Blood Count 13.9 H Red Blood Count 3.17 L Hemoglobin 10.1 L Hematocrit 31.9 L Mean Corpuscular Volume 100.6 Mean Corpuscular Hemoglobin 31.9 Mean Corpuscular Hemoglobin Concent 31.7 L Red Cell Distribution Width 21.2 H Platelet Count 63 #L Mean Platelet Volume Neutrophils % 81.0 H Lymphocytes % 4.7 L Monocytes % 11.4 H Eosinophils % 0.1 Basophils % 0.1 Nucleated Red Blood Cells % 1.4 H Neutrophils # 11.2 H Lymphocytes # 0.7 L Monocytes # 1.6 H Eosinophils # 0.0 Basophils # 0.0 Nucleated Red Blood Cells # 0.2 H Sodium Level 136 Potassium Level 4.7 Chloride Level 98 Carbon Dioxide Level 30 Anion Gap 13 Blood Urea Nitrogen 61 H Creatinine 1.68 H Glucose Level 114 Calcium Level 8.2 L Phosphorus Level 4.2 Magnesium Level 2.7 H Test 10/10/17 09:17 10/10/17 13:06 10/10/17 17:00 Bedside Glucose 123 160 155 Medications Medications Current Medications Hydromorphone HCl (Dilaudid) 0.5 mg Q4H PRN IV PAIN Last administered on 17:00; Admin Dose 0.5 MG; Start 09/27/17 at 23:00 Midodrine (Proamatine) 10 mg TID@, GTB Last administered on 10/10/17 17:03; Admin Dose 10 MG; Start 09/28/17 at 09:00 Ascorbic Acid (Vitamin C) 500 mg DAILY GTB Last administered on 10/10/17 09: 03; Admin Dose 500 MG; Start 09/28/17 at 09:00 Cholecalciferol (Vitamin D) 2,000 unit DAILY GTB Last administered on 09:04; Admin Dose 2,000 UNIT; Start 09/28/17 at 09:00 Digoxin (Digoxin) 0.125 mg DAILY GTB Last administered on 10/08/17 08:11; Admin Dose 0.125 MG; Start 09/28/17 at 09:00 Ferrous Sulfate (Feosol Liquid Cup) 300 mg DAILY GTB Last administered on 10/10 09:03; Admin Dose 300 MG; Start 09/28/17 at 09:00 Folic Acid (Folic Acid) 1 mg DAILY GTB Last administered on 10/10/17 09:04; Admin Dose 1 MG; Start 09/28/17 at 09:00 Acetaminophen/ Hydrocodone Bitart ([place] (5/325)) 1 tab DAILY GTB Last administered on 09/30/17 09:34; Admin Dose 1 TAB; Start 09/28/17 at 09:00; Status Future Hold Lactobacillus Acidophilus/ Rhamnosus (Culturelle) 1 cap BID GTB Last administered on 10/10/17 09:04; Admin Dose 1 CAP; Start 09/28/17 at 09:00 Sertraline HCl (Zoloft) 25 mg QHS GTB Last administered on 10/09/17 21:54; Admin Dose 25 MG; Start 09/28/17 at 21:00 Tramadol HCl (Ultram) 50 mg DAILY PRN GTB FOR WOUND CARE; Start 09/28/17 at 08 :00; Status Future Hold Tramadol HCl (Ultram) 50 mg Q8 GTB Last administered on 10/10/17 06:37; Admin Dose 50 MG; Start 09/28/17 at 14:00 Zolpidem Tartrate (Ambien) 5 mg QHS PRN GTB INSOMNIA; Start 09/28/17 at 08:00 Diagnostic Test (Pha) 1 ea 1 ea 02 XX Last administered on 10/08/17 01:31; Admin Dose 1 EA; Start 09/29/17 at 02:00 Dextrose/Sodium Chloride (D5-NS) 1,000 ml @ 20 mls/hr Q24H IV Last administered on 10/09/17 05:39; Admin Dose 20 MLS/HR; Start 09/28/17 at 19:00 Insulin Aspart (Novolog Insulin Pen) NOVOLOG *MILD* ALGORITHM Q4 SC Last administered on 10/10/17 17:13; Admin Dose 1 UNIT; Start 09/29/17 at 09:00 Collagenase (Santyl) 1 applic DAILY TOP Last administered on 10/10/17 09:06; Admin Dose 1 APPLIC; Start 09/29/17 at 12:00 Docusate Sodium (Colace Liquid Cup) 100 mg BID GTB Last administered on 09:03; Admin Dose 100 MG; Start 09/30/17 at 21:00 Multivitamins/ Minerals (Theragran-M) 1 tab DAILY GTB Last administered on 09:04; Admin Dose 1 TAB; Start 09/30/17 at 10:00 Lansoprazole (Prevacid) 30 mg DAILY@06 GTB Last administered on 10/10/17 06: 37; Admin Dose 30 MG; Start 09/30/17 at 12:15 Hydrogen Peroxide (Hydrogen Peroxide) 1 applic BID TOP Last administered on 09:04; Admin Dose 1 APPLIC; Start 09/30/17 at 21:00 Heparin Sodium (Porcine) (Heparin (5000 Units/0.5 ml)) 5,000 unit BID SC Last administered on 10/10/17 09:09; Admin Dose 5,000 UNIT; Start 10/01/17 at 21: 00 Brimonidine Tartrate (Alphagan P 0.1%) 1 drop BID BOTH EYES Last administered on 10/10/17 06:37; Admin Dose 1 DROP; Start 10/03/17 at 21:00 Silver Sulfadiazine 1 applic 1 applic DAILY TOP Last administered on 09:05; Admin Dose 1 APPLIC; Start 10/05/17 at 11:00 Daptomycin 290 mg/ Sodium Chloride 100 ml @ 200 mls/hr Q48H IVPB Last administered on 10/10/17 17:01; Admin Dose 200 MLS/HR; Start 10/08/17 at 18: 00 Colistimethate Sodium/Sodium Chloride (Coly-Mycin/NS) 100 ml @ 200 mls/hr Q24H IVPB Last administered on 10/10/17 15:40; Admin Dose 200 MLS/HR; Start 10/08 at 15:00 Miscellaneous Information (Pending [facility] Order For Wound Care) This patient reyes... PRN PRN XX WOUND CARE; Start 10/08/17 at 14:00 Hydrocortisone (Solu-Cortef) 25 mg Q8 IV ; Start 10/10/17 at 14:00 LIANNA BOWLING MD Oct 10, 2017 19:35
[2017-10-10] MEDS: SERTRALINE 50 MG TAB GTB SCH (21:25)
--- NOTE | 2017-10-10 21:25 | PN ---
Date/Time of Note Date/Time of Note DATE: 10/10/17 TIME: 21:24 Assessment/Plan Lines/Catheters IV Catheter Type (from [facility]): Saline [place] in Place (from Nrs): No Assessment/Plan Chief Complaint/Hosp Course 1. Hypotension, sepsis; off pressors; improved -supportive -judicious fluids -consider hospice/comfort measures - d/w 2. Sacral & left trochanter pressure ulcers: -debridement prn -local care -frequent turning and off-loading -low air loss mattress -vitamin c -short term zinc -optimize nutrition 3. 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 End-stage renal disease with generalized edema -HD per renal -avoid/limit nephrotoxic meds -judicious fluids -renally dose meds 5. Anemia: no acute bleed noted -closely monitor surgical site -transfuse as needed 6. Atrial fibrillation -rate control -lyte optimization -cards optimization 7. Dysphagia with feeding tube: on tube feeds -cont tf with aspiration precautions 8. Leukocytosis: afebrile; wbc up again -monitor -further workup if persistent 9. Thrombocytosis -supportive 10. Hypoalbuminemia: likely multifactorial -optimize nutrition -medical management of inflammation/infection 11. Electrolyte imbalance -optimize lytes and monitor 12. Ventilator dependent respiratory failure; pl effusions -per pulm -pulm toilet -respiratory treatments Thank you. Patient seen and examined in collaboration with Dr. Ho Lua. Problems: Subjective 24 Hr Interval Summary Continues to be lethargic. Minimal response. Nonverbal indicators of pain not present. Appears comfortable on vent. No fevers, congested cough, excessive wound drainage, new wounds, rash, sz. Exam/Review of Systems Vital Signs Vitals Vital Signs Date Time Temp Pulse Resp B/P Pulse Ox O2 Delivery O2 Flow Rate FiO2 10/14/17 12:35 76 10/14/17 12:00 97.4 17 87/43 95 10/14/17 10:57 40 Intake and Output 10/13/17 10/13/17 10/14/17 15:00 23:00 07:00 Intake Total 1000 ml 650 ml Balance 1000 ml 650 ml Exam Free Text/Dictation Constitutional: Not following commands, ventilated Psych: lethargic, non responsive Head: atraumatic, normocephalic Eyes: nl lids, nl sclera ENMT: mucosa pink and moist, nl nasal mucosa & septum Neck: non-tender, other (trach-vent), supple Respiratory: diminished breath sounds, No labored breathing Cardiovascular: irregular rhythm, other (afib) Gastrointestinal: non-tender, other (peg), soft Genitourinary - Male: nl penis, nl scrotum Musculoskeletal: nl extremities to inspection, swelling improved Extremities: cap refill 2 s Neurological: No nl speech, No nl strength (gen weakness), withdraws from pain Skin: Femoral incision with dressing, sacral and left troch pressure ulcers Lymph: No nl lymph nodes Results Result Diagram: 10/14/17 0614 10/14/17 0613 MART AMEZQUITA NP Oct 10, 2017 21:24
[2017-10-10] MEDS: DEXTROSE 5%-0.9% NACL 1,000 ML IV SCH (21:28)
[2017-10-11] VITALS (26 sets, daily range): BP systolic 86–143; BP diastolic 46–57; PULSE 30–122; RESP 12–22
[2017-10-11] MEDS: INSULIN ASPART [NOVOLOG] 3 ML PEN SC SCH ×6 (01:25→22:15)
[2017-10-11] MEDS: ACCU-CHEK XX SCH (02:00)
[2017-10-11] MEDS: traMADol 50 MG TAB GTB SCH ×3 (06:00→22:26)
[2017-10-11] MEDS: LANSOPRAZOLE 30 MG CAP GTB SCH (06:42)
[2017-10-11] MEDS: HYDROCORTISONE 100 MG INJ IV SCH ×3 (06:42→22:25)
[2017-10-11 08:22] LABS: ABNORMAL IP MESSAGE 1; BASOPHILS % 0.1 % (0.0-2.0); EOSINOPHILS % 0.1 % (0.0-7.0); HEMOGLOBIN 9.1 g/dl (14.0-18.0); LYMPHOCYTES # 0.3 10^3/ul (0.8-2.9); LYMPHOCYTES % 2.5 % (15.0-51.0); MEAN CORPUSCULAR HEMOGLOBIN 31.4 pg (29.0-33.0); MEAN CORPUSCULAR HGB CONC 31.4 g/dl (32.0-37.0); MONOCYTE # 1.1 10^3/ul (0.3-0.9); MONOCYTES % 8.3 % (0.0-11.0); NEUTROPHIL # 11.7 10^3/ul (1.6-7.5); NEUTROPHILS % 86.6 % (39.0-77.0); NUCLEATED RED BLOOD CELLS # 0.2 10^3/ul (0.0-0.0); NUCLEATED RED BLOOD CELLS% 1.2 /100WBC (0.0-0.0); POSITIVE DIFF @See below; RED CELL DISTRIBUTION WIDTH 20.8 % (11.5-14.5); WHITE BLOOD COUNT 13.5 10^3/ul (4.8-10.8)
[2017-10-11 08:36] LABS: PLATELET COUNT 59 10^3/UL (140-415)
[2017-10-11 08:46] LABS: CALCIUM 8.1 mg/dl (8.4-10.2); CREATININE 1.87 mg/dl (0.61-1.24); MAGNESIUM 2.9 mg/dl (1.7-2.5); PHOSPHORUS 4.6 mg/dl (2.5-4.9); POTASSIUM 4.8 mmol/L (3.5-5.1)
[2017-10-11] MEDS: DIGOXIN 0.125 MG TAB GTB SCH (09:00)
[2017-10-11] MEDS: COLLAGENASE 30 GM TUBE TOP SCH (09:00)
[2017-10-11] MEDS: FERROUS SULFATE 60 MG/ML 5ML CUP GTB SCH (09:48)
[2017-10-11] MEDS: DOCUSATE SODIUM 10 MG/ML (10ML CUP) GTB SCH ×2 (09:48→22:07)
[2017-10-11] MEDS: FOLIC ACID 1 MG TAB GTB SCH (09:48)
[2017-10-11] MEDS: MULTIVITAMINS/MINERALS TAB GTB SCH (09:48)
[2017-10-11] MEDS: ASCORBIC ACID 500 MG TAB GTB SCH (09:48)
[2017-10-11] MEDS: CHOLECALCIFEROL 2,000 UNIT CAP GTB SCH (09:49)
[2017-10-11] MEDS: BRIMONIDINE 0.1% 5 ML OPH BOTH EYES SCH ×2 (09:49→22:06)
[2017-10-11] MEDS: LACTOBACILLUS RHAMNOSUS CAP GTB SCH ×2 (09:51→22:07)
[2017-10-11] MEDS: HEPARIN 5,000 UNIT/0.5 ML VIAL SC SCH ×2 (09:54→22:12)
[2017-10-11] MEDS: MIDODRINE 5 MG TAB GTB SCH ×3 (10:00→17:20)
[2017-10-11] MEDS: HYDROGEN PEROXIDE 118 ML TOP SCH ×2 (10:06→22:08)
[2017-10-11] MEDS: SILVER SULFADIAZINE 1% 25 GM CR TOP SCH (10:07)
--- NOTE | 2017-10-11 11:30 | CONS ---
Date/Time of Note Date/Time of Note DATE: 10/11/17 TIME: 11:29 Consult Date/Type/Reason Admit Date/Time Sep 27, 2017 at 21:00 Initial Consult Date 09/28/17 Type of Consultation: Pulmonary Ordering Provider: PHILIPPE JUARES DO Subjective Patient remains comfortable this morning. Objective Vital Signs Date Time Temp Pulse Resp B/P Pulse Ox O2 Delivery O2 Flow Rate FiO2 10/11/17 09:47 30 10/11/17 09:00 14 98 30 10/11/17 07:11 98.5 86/49 10/08/17 08:00 Mechanical Ventilator Intake and Output 10/10/17 10/10/17 10/11/17 15:00 23:00 07:00 Intake Total 600 ml 1440 ml 500 ml Output Total 3100 ml Balance 600 ml -1660 ml 500 ml Exam GENERAL: Elderly gentleman comfortable at rest on mechanical ventilation. VITAL SIGNS: per chart NECK: Supple. No JVD or lymphadenopathy. CARDIAC EXAM: S1, S2. No added sounds or murmurs. CHEST: clear bilaterally, No added sounds, rales or wheezes ABDOMEN: Soft, nontender. No guarding or rebound. EXTREMITIES: No cyanosis, clubbing or edema. NEUROLOGIC: Generalized weakness. No focal deficits. Results/Medications Result Diagram: 10/11/1745 10/11/17 0745 Results 24 hrs Laboratory Tests Test 10/10/17 13:06 10/10/17 17:00 10/10/17 21:24 10/11/17 01:21 Bedside Glucose 160 155 153 173 Test 10/11/17 06:28 10/11/17 07:45 10/11/17 10:03 Bedside Glucose 132 127 White Blood Count 13.5 H Red Blood Count 2.90 L Hemoglobin 9.1 L Hematocrit 29.0 L Mean Corpuscular Volume 100.0 Mean Corpuscular Hemoglobin 31.4 Mean Corpuscular Hemoglobin Concent 31.4 L Red Cell Distribution Width 20.8 H Platelet Count 59 L Mean Platelet Volume Neutrophils % 86.6 H Lymphocytes % 2.5 L Monocytes % 8.3 Eosinophils % 0.1 Basophils % 0.1 Nucleated Red Blood Cells % 1.2 H Neutrophils # 11.7 H Lymphocytes # 0.3 L Monocytes # 1.1 H Eosinophils # 0.0 Basophils # 0.0 Nucleated Red Blood Cells # 0.2 H Sodium Level 133 L Potassium Level 4.8 Chloride Level 95 L Carbon Dioxide Level 27 Anion Gap 16 Blood Urea Nitrogen 75 H Creatinine 1.87 H Glucose Level 113 Calcium Level 8.1 L Phosphorus Level 4.6 Magnesium Level 2.9 H Medications Current Medications Hydromorphone HCl (Dilaudid) 0.5 mg Q4H PRN IV PAIN Last administered on 17:00; Admin Dose 0.5 MG; Start 09/27/17 at 23:00 Midodrine (Proamatine) 10 mg TID@ GTB Last administered on 10/11/17 10:00; Admin Dose 10 MG; Start 09/28/17 at 09:00 Ascorbic Acid (Vitamin C) 500 mg DAILY GTB Last administered on 10/11/17 09: 48; Admin Dose 500 MG; Start 09/28/17 at 09:00 Cholecalciferol (Vitamin D) 2,000 unit DAILY GTB Last administered on 09:49; Admin Dose 2,000 UNIT; Start 09/28/17 at 09:00 Digoxin (Digoxin) 0.125 mg DAILY GTB Last administered on 10/08/17 08:11; Admin Dose 0.125 MG; Start 09/28/17 at 09:00 Ferrous Sulfate (Feosol Liquid Cup) 300 mg DAILY GTB Last administered on 10/11 09:48; Admin Dose 300 MG; Start 09/28/17 at 09:00 Folic Acid (Folic Acid) 1 mg DAILY GTB Last administered on 10/11/17 09:48; Admin Dose 1 MG; Start 09/28/17 at 09:00 Acetaminophen/ Hydrocodone Bitart ([place] (5/325)) 1 tab DAILY GTB Last administered on 09/30/17 09:34; Admin Dose 1 TAB; Start 09/28/17 at 09:00; Status Future Hold Lactobacillus Acidophilus/ Rhamnosus (Culturelle) 1 cap BID GTB Last administered on 10/11/17 09:51; Admin Dose 1 CAP; Start 09/28/17 at 09:00 Sertraline HCl (Zoloft) 25 mg QHS GTB Last administered on 10/10/17 21:25; Admin Dose 25 MG; Start 09/28/17 at 21:00 Tramadol HCl (Ultram) 50 mg DAILY PRN GTB FOR WOUND CARE; Start 09/28/17 at 08 :00; Status Future Hold Tramadol HCl (Ultram) 50 mg Q8 GTB Last administered on 10/10/17 06:37; Admin Dose 50 MG; Start 09/28/17 at 14:00 Zolpidem Tartrate (Ambien) 5 mg QHS PRN GTB INSOMNIA; Start 09/28/17 at 08:00 Diagnostic Test (Pha) 1 ea 1 ea 02 XX Last administered on 10/08/17 01:31; Admin Dose 1 EA; Start 09/29/17 at 02:00 Dextrose/Sodium Chloride (D5-NS) 1,000 ml @ 20 mls/hr Q24H IV Last administered on 10/10/17 21:28; Admin Dose 20 MLS/HR; Start 09/28/17 at 19:00 Insulin Aspart (Novolog Insulin Pen) NOVOLOG *MILD* ALGORITHM Q4 SC Last administered on 10/11/17 01:25; Admin Dose 1 UNIT; Start 09/29/17 at 09:00 Collagenase (Santyl) 1 applic DAILY TOP Last administered on 10/11/17 09:00; Admin Dose 1 APPLIC; Start 09/29/17 at 12:00 Docusate Sodium (Colace Liquid Cup) 100 mg BID GTB Last administered on 09:48; Admin Dose 100 MG; Start 09/30/17 at 21:00 Multivitamins/ Minerals (Theragran-M) 1 tab DAILY GTB Last administered on 09:48; Admin Dose 1 TAB; Start 09/30/17 at 10:00 Lansoprazole (Prevacid) 30 mg DAILY@06 GTB Last administered on 10/11/17 06: 42; Admin Dose 30 MG; Start 09/30/17 at 12:15 Hydrogen Peroxide (Hydrogen Peroxide) 1 applic BID TOP Last administered on 10:06; Admin Dose 1 APPLIC; Start 09/30/17 at 21:00 Heparin Sodium (Porcine) (Heparin (5000 Units/0.5 ml)) 5,000 unit BID SC Last administered on 10/11/17 09:54; Admin Dose 5,000 UNIT; Start 10/01/17 at 21: 00 Brimonidine Tartrate (Alphagan P 0.1%) 1 drop BID BOTH EYES Last administered on 10/11/17 09:49; Admin Dose 1 DROP; Start 10/03/17 at 21:00 Silver Sulfadiazine 1 applic 1 applic DAILY TOP Last administered on 10:07; Admin Dose 1 APPLIC; Start 10/05/17 at 11:00 Daptomycin 290 mg/ Sodium Chloride 100 ml @ 200 mls/hr Q48H IVPB Last administered on 10/10/17 17:01; Admin Dose 200 MLS/HR; Start 10/08/17 at 18: 00 Colistimethate Sodium/Sodium Chloride (Coly-Mycin/NS) 100 ml @ 200 mls/hr Q24H IVPB Last administered on 10/10/17 15:40; Admin Dose 200 MLS/HR; Start 10/08 at 15:00 Miscellaneous Information (Pending [facility] Order For Wound Care) This patient reyes... PRN PRN XX WOUND CARE; Start 10/08/17 at 14:00 Hydrocortisone (Solu-Cortef) 25 mg Q8 IV Last administered on 10/11/17 06:42 ; Admin Dose 25 MG; Start 10/10/17 at 14:00 Assessment/Plan Chief Complaint/Hosp Course Assessment 1. Patient admitted for repair of right femoral artery pseudoaneurysm status post repair. 2. Status post septic shock on mechanical ventilation. Possible component of adrenal insufficiency. 3. Dysphagia with G-tube 4. End-stage renal failure on hemodialysis 5. Idiopathic pulmonary fibrosis. Chronic respiratory failure on mechanical ventilation 6. Encephalopathy possible toxic metabolic. CT head demonstrates no acute intracranial pathology. Plan 1. Continue mechanical ventilation, head of bed elevation aspiration precautions. 2. Continue antibiotics decrease steroids 3. Tube feeding as tolerated 4. Hemodialysis as tolerated Transfer back to [place] Problems: ANGELINA TRUJILLO MD, [facility] Oct 11, 2017 11:30
--- NOTE | 2017-10-11 12:19 | CONS ---
Date/Time of Note Date/Time of Note DATE: 10/11/17 TIME: 12:18 Assessment/Plan Assessment/Plan Chief Complaint/Hosp Course SUBJECTIVE: No acute changes, remains noncommunicative, in no distress, no fevers. Repeat CT brain negative INDWELLINGS: Trach, PEG, right subclavian permacath, right upper extremity midline ANTIMICROBIALS: 1. Daptomycin. 2. Colistin. MICROBIOLOGY: Wound cultures in [facility] grew Acinetobacter baumannii and VRE, as well as Klebsiella pneumoniae, ESBL and pseudomonas. Urine culture grew Dulce glabrata. PHYSICAL EXAMINATION: GENERAL: This is a chronically ill-appearing, fragile, debilitated, elderly man who is lethargic, in no distress. HEENT: Head atraumatic, normocephalic. Sclerae anicteric. Buccal mucosa dry. NECK: Supple. Tracheostomy present. CHEST: Rise symmetrical. Breath sounds diminished to bases. HEART: S1, S2. ABDOMEN: Distended, bowel tones hypoactive. EXTREMITIES: With bilateral edema. SKIN: With multiple wounds and severe anasarca, also penile and scrotal edema ASSESSMENT: 1. S/p septic shock. 2. Status post right femoral pseudoaneurysm repair. 3. Multiple chronic wounds with sacral osteomyelitis, status post debridement. 4. G-tube site cellulitis. 5. S/p nontoxic megacolon. 6. S/p Urinary tract infection. 8. Deep venous thrombosis, status post inferior vena cava filter placement. 9. Anemia. 10. Atrial fibrillation. 11. Failure to thrive. 12. End stage renal disease, hemodialysis dependent. 13. Acute encephalopathy==> repeat CT brain negative PLAN: The patient remains unchanged. Continue present care, continue antibiotics for OM, local wound care, follow recommendations of specialists. Prognosis guarded [facility] staff Problems: Consultation Date/Type/Reason Admit Date/Time Sep 27, 2017 at 21:00 Initial Consult Date 09/28/17 Type of Consultation: ID Referring Provider: PHILIPPE JUARES DO Exam/Review of Systems Vital Signs Vitals Vital Signs Date Time Temp Pulse Resp B/P Pulse Ox O2 Delivery O2 Flow Rate FiO2 10/11/17 12:14 48 20 97/51 97 10/11/17 11:00 30 10/11/17 07:11 98.5 10/08/17 08:00 Mechanical Ventilator Intake and Output 10/10/17 10/10/1710/11/17 15:00 23:00 07:00 Intake Total 600 ml 1440 ml 500 ml Output Total 3100 ml Balance 600 ml -1660 ml 500 ml Results Result Diagram: 10/11/17 0745 10/11/17 0745 Results 24 hrs Laboratory Tests Test 10/10/17 13:06 10/10/17 17:00 10/10/17 21:24 10/11/17 01:21 Bedside Glucose 160 155 153 173 Test 10/11/17 06:28 10/11/17 07:45 10/11/17 10:03 Bedside Glucose 132 127 White Blood Count 13.5 H Red Blood Count 2.90 L Hemoglobin 9.1 L Hematocrit 29.0 L Mean Corpuscular Volume 100.0 Mean Corpuscular Hemoglobin 31.4 Mean Corpuscular Hemoglobin Concent 31.4 L Red Cell Distribution Width 20.8 H Platelet Count 59 L Mean Platelet Volume Neutrophils % 86.6 H Lymphocytes % 2.5 L Monocytes % 8.3 Eosinophils % 0.1 Basophils % 0.1 Nucleated Red Blood Cells % 1.2 H Neutrophils # 11.7 H Lymphocytes # 0.3 L Monocytes # 1.1 H Eosinophils # 0.0 Basophils # 0.0 Nucleated Red Blood Cells # 0.2 H Sodium Level 133 L Potassium Level 4.8 Chloride Level 95 L Carbon Dioxide Level 27 Anion Gap 16 Blood Urea Nitrogen 75 H Creatinine 1.87 H Glucose Level 113 Calcium Level 8.1 L Phosphorus Level 4.6 Magnesium Level 2.9 H Medications Medications Current Medications Hydromorphone HCl (Dilaudid) 0.5 mg Q4H PRN IV PAIN Last administered on 17:00; Admin Dose 0.5 MG; Start 09/27/17 at 23:00 Midodrine (Proamatine) 10 mg TID@ GTB Last administered on 10/11/17 10:00; Admin Dose 10 MG; Start 09/28/17 at 09:00 Ascorbic Acid (Vitamin C) 500 mg DAILY GTB Last administered on 10/11/17 09: 48; Admin Dose 500 MG; Start 09/28/17 at 09:00 Cholecalciferol (Vitamin D) 2,000 unit DAILY GTB Last administered on 09:49; Admin Dose 2,000 UNIT; Start 09/28/17 at 09:00 Digoxin (Digoxin) 0.125 mg DAILY GTB Last administered on 10/08/17 08:11; Admin Dose 0.125 MG; Start 09/28/17 at 09:00 Ferrous Sulfate (Feosol Liquid Cup) 300 mg DAILY GTB Last administered on 10/11 09:48; Admin Dose 300 MG; Start 09/28/17 at 09:00 Folic Acid (Folic Acid) 1 mg DAILY GTB Last administered on 10/11/17 09:48; Admin Dose 1 MG; Start 09/28/17 at 09:00 Acetaminophen/ Hydrocodone Bitart ([place] (5/325)) 1 tab DAILY GTB Last administered on 09/30/17 09:34; Admin Dose 1 TAB; Start 09/28/17 at 09:00; Status Future Hold Lactobacillus Acidophilus/ Rhamnosus (Culturelle) 1 cap BID GTB Last administered on 10/11/17 09:51; Admin Dose 1 CAP; Start 09/28/17 at 09:00 Sertraline HCl (Zoloft) 25 mg QHS GTB Last administered on 10/10/17 21:25; Admin Dose 25 MG; Start 09/28/17 at 21:00 Tramadol HCl (Ultram) 50 mg DAILY PRN GTB FOR WOUND CARE; Start 09/28/17 at 08 :00; Status Future Hold Tramadol HCl (Ultram) 50 mg Q8 GTB Last administered on 10/10/17 06:37; Admin Dose 50 MG; Start 09/28/17 at 14:00 Zolpidem Tartrate (Ambien) 5 mg QHS PRN GTB INSOMNIA; Start 09/28/17 at 08:00 Diagnostic Test (Pha) 1 ea 1 ea 02 XX Last administered on 10/08/17 01:31; Admin Dose 1 EA; Start 09/29/17 at 02:00 Dextrose/Sodium Chloride (D5-NS) 1,000 ml @ 20 mls/hr Q24H IV Last administered on 10/10/17 21:28; Admin Dose 20 MLS/HR; Start 09/28/17 at 19:00 Insulin Aspart (Novolog Insulin Pen) NOVOLOG *MILD* ALGORITHM Q4 SC Last administered on 10/11/17 01:25; Admin Dose 1 UNIT; Start 09/29/17 at 09:00 Collagenase (Santyl) 1 applic DAILY TOP Last administered on 10/11/17 09:00; Admin Dose 1 APPLIC; Start 09/29/17 at 12:00 Docusate Sodium (Colace Liquid Cup) 100 mg BID GTB Last administered on 09:48; Admin Dose 100 MG; Start 09/30/17 at 21:00 Multivitamins/ Minerals (Theragran-M) 1 tab DAILY GTB Last administered on 09:48; Admin Dose 1 TAB; Start 09/30/17 at 10:00 Lansoprazole (Prevacid) 30 mg DAILY@06 GTB Last administered on 10/11/17 06: 42; Admin Dose 30 MG; Start 09/30/17 at 12:15 Hydrogen Peroxide (Hydrogen Peroxide) 1 applic BID TOP Last administered on 10:06; Admin Dose 1 APPLIC; Start 09/30/17 at 21:00 Heparin Sodium (Porcine) (Heparin (5000 Units/0.5 ml)) 5,000 unit BID SC Last administered on 10/11/17 09:54; Admin Dose 5,000 UNIT; Start 10/01/17 at 21: 00 Brimonidine Tartrate (Alphagan P 0.1%) 1 drop BID BOTH EYES Last administered on 10/11/17 09:49; Admin Dose 1 DROP; Start 10/03/17 at 21:00 Silver Sulfadiazine 1 applic 1 applic DAILY TOP Last administered on 10:07; Admin Dose 1 APPLIC; Start 10/05/17 at 11:00 Daptomycin 290 mg/ Sodium Chloride 100 ml @ 200 mls/hr Q48H IVPB Last administered on 10/10/17 17:01; Admin Dose 200 MLS/HR; Start 10/08/17 at 18: 00 Colistimethate Sodium/Sodium Chloride (Coly-Mycin/NS) 100 ml @ 200 mls/hr Q24H IVPB Last administered on 10/10/17 15:40; Admin Dose 200 MLS/HR; Start 10/08 at 15:00 Miscellaneous Information (Pending Santyl Order For Wound Care) This patient reyes... PRN PRN XX WOUND CARE; Start 10/08/17 at 14:00 Hydrocortisone (Solu-Cortef) 25 mg Q8 IV Last administered on 10/11/17t 06:42 ; Admin Dose 25 MG; Start 10/10/17 at 14:00 CLAYTON SHANKAR NP Oct 11, 2017 12:19
--- NOTE | 2017-10-11 13:24 | PN ---
DATE: 10/11/2017 SUBJECTIVE: The patient remains obtunded, minimally responsive. The patient had dialysis yesterday with 3 liters removed. No other events noted. OBJECTIVE: VITAL SIGNS: Blood pressure is 86/49, respiratory rate 20, pulse 69, temperature 98.5. HEENT: Head is normocephalic. NECK: Supple. HEART: Regular rate. LUNGS: Show diminished breath sounds at base. ABDOMEN: Soft, nontender to palpation without rebound or guarding. EXTREMITIES: Negative for clubbing, cyanosis. Diffuse anasarca. DERMATOLOGIC: No rashes. MUSCULOSKELETAL: No joint effusions. NEUROLOGIC: The patient remains obtunded. LABORATORY DATA: Shows white count 13.5, hemoglobin 9.1, hematocrit 29.0, platelet count is 59. So dium 133, potassium 4.8, BUN 75, creatinine 1.87. ASSESSMENT AND PLAN: 1. Sepsis, status post shock secondary to pneumonia. Continue current antibiotic regimen. 2. Arrhythmia, nonsustained ventricular tachycardia. Continue medical management. 3. Ventilator dependent respiratory failure. Vent settings and ABG is reviewed. 4. Right pseudoaneurysm status post surgical repair. 5. Acute encephalopathy. Etiology is likely secondary to toxic metabolic. The patient remains obt unded. Recent CT scan shows no acute findings. 6. End-stage renal disease. Continue dialysis for volume removal. 7. Volume overload secondary to congestive heart failure, end-stage renal disease. Continue ultraf iltration with dialysis. 8. Mineral bone disorder. Continue to monitor calcium and phosphorus levels. 9. Hypernatremia. Continue dialysis . 9. Vasospastic tube feeds. 10. Decubitus wound. Continue wound care. 11. Gastrointestinal and deep venous thrombosis prophylaxis. DISPOSITION: The patient's overall prognosis is poor, transfer to [place] is pending. Dictated By: PHILIPPE WILSON/NORM Conf#: [id number] DID#: [id number]
--- NOTE | 2017-10-11 14:31 | CONS ---
Date/Time of Note Date/Time of Note DATE: 10/11/17 TIME: 14:28 Assessment/Plan Assessment/Plan Additional Assessment/Plan Shock, likely secondary to sepsis Preserved ejection fraction Acute decompensated diastolic congestive heart failure Nonsustained ventricular tachycardia Atrial fibrillation Vent dependent respiratory failure Acute blood loss anemia End-stage renal disease on hemodialysis DNR Patient with frequent episodes of nonsustained ventricular tachycardia, unfortunately given hypotension, cannot tolerate beta-rafi given issues of QT prolongation, cannot use amiodarone. Given episodes of bradycardia, would DC digoxin at the current time. Maintain potassium above 4.0 and magnesium above 2.0. Avoid any pro-rhythmic medications. Patient has been made DNR Consultation Date/Type/Reason Admit Date/Time Sep 27, 2017 at 21:00 Initial Consult Date 09/28/17 Type of Consultation: cv Referring Provider: PHILIPPE JUARES DO 24 HR Interval Summary Free Text/Dictation Patient with frequent episodes of nonsustained ventricular tachycardia on telemetry, otherwise no clinical change as per nursing staff Exam/Review of Systems Vital Signs Vitals Vital Signs Date Time Temp Pulse Resp B/P Pulse Ox O2 Delivery O2 Flow Rate FiO2 10/11/17 13:05 61 16 96 30 10/11/17 12:14 97/51 10/11/17 07:11 98.5 10/08/17 08:00 Mechanical Ventilator Intake and Output 10/10/17 10/10/17 10/11/17 15:00 23:00 07:00 Intake Total 600 ml 1440 ml 500 ml Output Total 3100 ml Balance 600 ml -1660 ml 500 ml Exam No response to verbal stimuli, no apparent distress Head: normocephalic Neck: other (Tracheostomy) Respiratory: other (Coarse breath sounds bilaterally, no wheezing) Cardiovascular: irregular rhythm, other (S1-S2 heard) Gastrointestinal: bowel sounds, other (No grimacing with palpation), soft Extremities: edema Results Result Diagram: 10/11/17 0745 10/11/17 0745 Results 24 hrs Laboratory Tests Test 10/10/17 17:00 10/10/17 21:24 10/11/17 01:21 10/11/17 06:28 Bedside Glucose 155 153 173 132 Test 10/11/17 07:45 10/11/17 10:03 10/11/17 13:22 White Blood Count 13.5 H Red Blood Count 2.90 L Hemoglobin 9.1 L Hematocrit 29.0 L Mean Corpuscular Volume 100.0 Mean Corpuscular Hemoglobin 31.4 Mean Corpuscular Hemoglobin Concent 31.4 L Red Cell Distribution Width 20.8 H Platelet Count 59 L Mean Platelet Volume Neutrophils % 86.6 H Lymphocytes % 2.5 L Monocytes % 8.3 Eosinophils % 0.1 Basophils % 0.1 Nucleated Red Blood Cells % 1.2 H Neutrophils # 11.7 H Lymphocytes # 0.3 L Monocytes # 1.1 H Eosinophils # 0.0 Basophils # 0.0 Nucleated Red Blood Cells # 0.2 H Sodium Level 133 L Potassium Level 4.8 Chloride Level 95 L Carbon Dioxide Level 27 Anion Gap 16 Blood Urea Nitrogen 75 H Creatinine 1.87 H Glucose Level 113 Calcium Level 8.1 L Phosphorus Level 4.6 Magnesium Level 2.9 H Bedside Glucose 127 123 Medications Medications Current Medications Hydromorphone HCl (Dilaudid) 0.5 mg Q4H PRN IV PAIN Last administered on 17:00; Admin Dose 0.5 MG; Start 09/27/17 at 23:00 Midodrine (Proamatine) 10 mg TID@ GTB Last administered on 10/11/17 13:31; Admin Dose 10 MG; Start 09/28/17 at 09:00 Ascorbic Acid (Vitamin C) 500 mg DAILY GTB Last administered on 10/11/17 09: 48; Admin Dose 500 MG; Start 09/28/17 at 09:00 Cholecalciferol (Vitamin D) 2,000 unit DAILY GTB Last administered on 09:49; Admin Dose 2,000 UNIT; Start 09/28/17 at 09:00 Digoxin (Digoxin) 0.125 mg DAILY GTB Last administered on 10/08/17 08:11; Admin Dose 0.125 MG; Start 09/28/17 at 09:00 Ferrous Sulfate (Feosol Liquid Cup) 300 mg DAILY GTB Last administered on 10/11 09:48; Admin Dose 300 MG; Start 09/28/17 at 09:00 Folic Acid (Folic Acid) 1 mg DAILY GTB Last administered on 10/11/17 09:48; Admin Dose 1 MG; Start 09/28/17 at 09:00 Acetaminophen/ Hydrocodone Bitart ([place] (5/325)) 1 tab DAILY GTB Last administered on 09/30/17 09:34; Admin Dose 1 TAB; Start 09/28/17 at 09:00; Status Future Hold Lactobacillus Acidophilus/ Rhamnosus (Culturelle) 1 cap BID GTB Last administered on 10/11/17 09:51; Admin Dose 1 CAP; Start 09/28/17 at 09:00 Sertraline HCl (Zoloft) 25 mg QHS GTB Last administered on 10/10/17 21:25; Admin Dose 25 MG; Start 09/28/17 at 21:00 Tramadol HCl (Ultram) 50 mg DAILY PRN GTB FOR WOUND CARE; Start 09/28/17 at 08 :00; Status Future Hold Tramadol HCl (Ultram) 50 mg Q8 GTB Last administered on 10/10/17 06:37; Admin Dose 50 MG; Start 09/28/17 at 14:00 Zolpidem Tartrate (Ambien) 5 mg QHS PRN GTB INSOMNIA; Start 09/28/17 at 08:00 Diagnostic Test (Pha) 1 ea 1 ea 02 XX Last administered on 10/08/17 01:31; Admin Dose 1 EA; Start 09/29/17 at 02:00 Dextrose/Sodium Chloride (D5-NS) 1,000 ml @ 20 mls/hr Q24H IV Last administered on 10/10/17 21:28; Admin Dose 20 MLS/HR; Start 09/28/17 at 19:00 Insulin Aspart (Novolog Insulin Pen) NOVOLOG *MILD* ALGORITHM Q4 SC Last administered on 10/11/17 01:25; Admin Dose 1 UNIT; Start 09/29/17 at 09:00 Collagenase (Santyl) 1 applic DAILY TOP Last administered on 10/11/17 09:00; Admin Dose 1 APPLIC; Start 09/29/17 at 12:00 Docusate Sodium (Colace Liquid Cup) 100 mg BID GTB Last administered on 09:48; Admin Dose 100 MG; Start 09/30/17 at 21:00 Multivitamins/ Minerals (Theragran-M) 1 tab DAILY GTB Last administered on 09:48; Admin Dose 1 TAB; Start 09/30/17 at 10:00 Lansoprazole (Prevacid) 30 mg DAILY@06 GTB Last administered on 10/11/17 06: 42; Admin Dose 30 MG; Start 09/30/17 at 12:15 Hydrogen Peroxide (Hydrogen Peroxide) 1 applic BID TOP Last administered on 10:06; Admin Dose 1 APPLIC; Start 09/30/17 at 21:00 Heparin Sodium (Porcine) (Heparin (5000 Units/0.5 ml)) 5,000 unit BID SC Last administered on 10/11/17 09:54; Admin Dose 5,000 UNIT; Start 10/01/17 at 21: 00 Brimonidine Tartrate (Alphagan P 0.1%) 1 drop BID BOTH EYES Last administered on 10/11/17 09:49; Admin Dose 1 DROP; Start 10/03/17 at 21:00 Silver Sulfadiazine 1 applic 1 applic DAILY TOP Last administered on 10:07; Admin Dose 1 APPLIC; Start 10/05/17 at 11:00 Daptomycin 290 mg/ Sodium Chloride 100 ml @ 200 mls/hr Q48H IVPB Last administered on 10/10/17 17:01; Admin Dose 200 MLS/HR; Start 10/08/17 at 18: 00 Colistimethate Sodium/Sodium Chloride (Coly-Mycin/NS) 100 ml @ 200 mls/hr Q24H IVPB Last administered on 10/10/17 15:40; Admin Dose 200 MLS/HR; Start 10/08 at 15:00 Miscellaneous Information (Pending [facility] Order For Wound Care) This patient reyes... PRN PRN XX WOUND CARE; Start 10/08/17 at 14:00 Hydrocortisone (Solu-Cortef) 25 mg Q8 IV Last administered on 10/11/17 13:32 ; Admin Dose 25 MG; Start 10/10/17 at 14:00 Ted Guidry DO Oct 11, 2017 14:31
[2017-10-11] MEDS: COLISTIMETHATE 75 MG in SOD CHLORIDE 0.9% 100 ML IVPB SCH (15:03)
[2017-10-11] MEDS: SERTRALINE 50 MG TAB GTB SCH (22:08)
--- NOTE | 2017-10-11 23:35 | PN ---
Date/Time of Note Date/Time of Note DATE: 10/11/17 TIME: 23:32 Assessment/Plan Lines/Catheters IV Catheter Type (from [facility]): Mid Line [facility] in Place (from [facility]): No Assessment/Plan Chief Complaint/Hosp Course 1. Hypotension, sepsis. Weaned off pressors -supportive -judicious fluids -consider hospice/comfort measures - d/w 2. Sacral & left trochanter pressure ulcers: -debridement prn -local care -frequent turning and off-loading -low air loss mattress -vitamin c -short term zinc -optimize nutrition 3. 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 End-stage renal disease -HD per renal -avoid/limit nephrotoxic meds -judicious fluids -renally dose meds 5. Anemia: no acute bleed noted -closely monitor surgical site -transfuse as needed 6. Atrial fibrillation -rate control -lyte optimization -cards optimization 7. Dysphagia with feeding tube: on tube feeds -cont tf with aspiration precautions 8. Leukocytosis: afebrile -monitor -further workup if persistent 9. Thrombocytosis -supportive 10. Hypoalbuminemia: likely multifactorial -optimize nutrition -medical management of inflammation/infection 11. Electrolyte imbalance -optimize lytes and monitor 12. Ventilator dependent respiratory failure -per pulm -pulm toilet -respiratory treatments Thank you, Problems: Subjective 24 Hr Interval Summary HD. Leukocytosis. No fevers, congested cough, v/d. Non responsive. No cough. No sz. No rashes. No bloating. No jt swelling. Wounds. Exam/Review of Systems Vital Signs Vitals Vital Signs Date Time Temp Pulse Resp B/P Pulse Ox O2 Delivery O2 Flow Rate FiO2 10/11/17 20:37 65 10/11/17 20:00 98.2 22 97/46 100 10/11/17 17:10 30 10/08/17 08:00 Mechanical Ventilator Intake and Output 10/10/17 10/10/17 10/11/17 14:59 22:59 06:59 Intake Total 840 ml 1440 ml 500 ml Output Total 3100 ml Balance 840 ml -1660 ml 500 ml Exam Free Text/Dictation Constitutional: Not following commands, ventilated Psych: lethargic, non responsive Head: atraumatic, normocephalic Eyes: nl lids, nl sclera ENMT: mucosa pink and moist, nl nasal mucosa & septum Neck: non-tender, other (trach-vent), supple Respiratory: diminished breath sounds, No labored breathing Cardiovascular: irregular rhythm, other (afib) Gastrointestinal: non-tender, other (peg), soft Genitourinary - Male: nl penis, nl scrotum Musculoskeletal: nl extremities to inspection, swelling improved Extremities: cap refill 2 s Neurological: No nl speech, No nl strength (gen weakness) Skin: Femoral incision with dressing, sacral and left troch pressure ulcers Lymph: No nl lymph nodes Results Result Diagram: 10/11/17 0745 10/11/17 0745 CORA MATAMOROS MD Oct 11, 2017 23:35
[2017-10-12] VITALS (33 sets, daily range): BP systolic 93–117; BP diastolic 41–59; PULSE 30–72; RESP 12–20
[2017-10-12] MEDS: INSULIN ASPART [NOVOLOG] 3 ML PEN SC SCH ×4 (01:00→17:30)
[2017-10-12] MEDS: ACCU-CHEK XX SCH (02:00)
[2017-10-12] MEDS: HYDROCORTISONE 100 MG INJ IV SCH ×3 (05:24→22:33)
[2017-10-12] MEDS: LANSOPRAZOLE 30 MG CAP GTB SCH (05:24)
[2017-10-12] MEDS: traMADol 50 MG TAB GTB SCH ×3 (05:25→22:54)
[2017-10-12] MEDS: FERROUS SULFATE 60 MG/ML 5ML CUP GTB SCH (09:29)
[2017-10-12] MEDS: DOCUSATE SODIUM 10 MG/ML (10ML CUP) GTB SCH ×2 (09:29→22:34)
[2017-10-12] MEDS: BRIMONIDINE 0.1% 5 ML OPH BOTH EYES SCH ×2 (09:29→22:33)
[2017-10-12] MEDS: CHOLECALCIFEROL 2,000 UNIT CAP GTB SCH (09:30)
[2017-10-12] MEDS: FOLIC ACID 1 MG TAB GTB SCH (09:30)
[2017-10-12] MEDS: LACTOBACILLUS RHAMNOSUS CAP GTB SCH ×2 (09:30→22:34)
[2017-10-12] MEDS: ASCORBIC ACID 500 MG TAB GTB SCH (09:30)
[2017-10-12] MEDS: HYDROGEN PEROXIDE 118 ML TOP SCH ×2 (09:31→22:33)
[2017-10-12] MEDS: SILVER SULFADIAZINE 1% 25 GM CR TOP SCH (09:32)
[2017-10-12] MEDS: MIDODRINE 5 MG TAB GTB SCH ×3 (09:39→17:23)
[2017-10-12] MEDS: HEPARIN 5,000 UNIT/0.5 ML VIAL SC SCH ×2 (09:40→22:40)
--- NOTE | 2017-10-12 10:22 | CONS ---
Date/Time of Note Date/Time of Note DATE: 10/12/17 TIME: 10:18 Consult Date/Type/Reason Admit Date/Time Sep 27, 2017 at 21:00 Initial Consult Date 09/28/17 Type of Consultation: pulm Ordering Provider: PHILIPPE JUARES DO Subjective Patient comfortable. Objective Vital Signs Date Time Temp Pulse Resp B/P Pulse Ox O2 Delivery O2 Flow Rate FiO2 10/12/17 08:51 66 10/12/17 07:51 98.4 20 106/58 100 10/12/17 07:05 30 10/08/17 08:00 Mechanical Ventilator Intake and Output 10/11/17 10/11/17 10/12/17 15:00 23:00 07:00 Intake Total 700 ml 530 ml Balance 700 ml 530 ml Exam GENERAL: Elderly gentleman comfortable at rest on mechanical ventilation. VITAL SIGNS: per chart NECK: Supple. No JVD or lymphadenopathy. CARDIAC EXAM: S1, S2. No added sounds or murmurs. CHEST: clear bilaterally, No added sounds, rales or wheezes ABDOMEN: Soft, nontender. No guarding or rebound. EXTREMITIES: No cyanosis, clubbing or edema. NEUROLOGIC: Generalized weakness. No focal deficits. Results/Medications Result Diagram: 10/11/17 0745 10/11/17 0745 Results 24 hrs Laboratory Tests Test 10/11/17 13:22 10/11/17 17:17 10/11/17 22:03 10/12/17 03:24 Bedside Glucose 123 125 118 108 Test 10/12/17 05:22 Bedside Glucose 128 Medications Current Medications Hydromorphone HCl (Dilaudid) 0.5 mg Q4H PRN IV PAIN Last administered on 17:00; Admin Dose 0.5 MG; Start 09/27/17 at 23:00 Midodrine (Proamatine) 10 mg TID@ GTB Last administered on 10/12/17 09:39; Admin Dose 10 MG; Start 09/28/17 at 09:00 Ascorbic Acid (Vitamin C) 500 mg DAILY GTB Last administered on 10/12/17 09: 30; Admin Dose 500 MG; Start 09/28/17 at 09:00 Cholecalciferol (Vitamin D) 2,000 unit DAILY GTB Last administered on 09:30; Admin Dose 2,000 UNIT; Start 09/28/17 at 09:00 Ferrous Sulfate (Feosol Liquid Cup) 300 mg DAILY GTB Last administered on 10/12 09:29; Admin Dose 300 MG; Start 09/28/17 at 09:00 Folic Acid (Folic Acid) 1 mg DAILY GTB Last administered on 10/12/17 09:30; Admin Dose 1 MG; Start 09/28/17 at 09:00 Acetaminophen/ Hydrocodone Bitart (Carlos (5/325)) 1 tab DAILY GTB Last administered on 09/30/17 09:34; Admin Dose 1 TAB; Start 09/28/17 at 09:00; Status Future Hold Lactobacillus Acidophilus/ Rhamnosus (Culturelle) 1 cap BID GTB Last administered on 10/12/17 09:30; Admin Dose 1 CAP; Start 09/28/17 at 09:00 Sertraline HCl (Zoloft) 25 mg QHS GTB Last administered on 10/11/17 22:08; Admin Dose 25 MG; Start 09/28/17 at 21:00 Tramadol HCl (Ultram) 50 mg DAILY PRN GTB FOR WOUND CARE; Start 09/28/17 at 08 :00; Status Future Hold Tramadol HCl (Ultram) 50 mg Q8 GTB Last administered on 10/12/17 05:25; Admin Dose 50 MG; Start 09/28/17 at 14:00 Zolpidem Tartrate (Ambien) 5 mg QHS PRN GTB INSOMNIA; Start 09/28/17 at 08:00 Diagnostic Test (Pha) 1 ea 1 ea 02 XX Last administered on 10/08/17 01:31; Admin Dose 1 EA; Start 09/29/17 at 02:00 Dextrose/Sodium Chloride (D5-NS) 1,000 ml @ 20 mls/hr Q24H IV Last administered on 10/10/17 21:28; Admin Dose 20 MLS/HR; Start 09/28/17 at 19:00 Collagenase (Santyl) 1 applic DAILY TOP Last administered on 10/11/17 09:00; Admin Dose 1 APPLIC; Start 09/29/17 at 12:00 Docusate Sodium (Colace Liquid Cup) 100 mg BID GTB Last administered on 09:29; Admin Dose 100 MG; Start 09/30/17 at 21:00 Multivitamins/ Minerals (Theragran-M) 1 tab DAILY GTB Last administered on 09:48; Admin Dose 1 TAB; Start 09/30/17 at 10:00 Lansoprazole (Prevacid) 30 mg DAILY@06 GTB Last administered on 10/12/17 05: 24; Admin Dose 30 MG; Start 09/30/17 at 12:15 Hydrogen Peroxide (Hydrogen Peroxide) 1 applic BID TOP Last administered on 09:31; Admin Dose 1 APPLIC; Start 09/30/17 at 21:00 Heparin Sodium (Porcine) (Heparin (5000 Units/0.5 ml)) 5,000 unit BID SC Last administered on 10/12/17 09:40; Admin Dose 5,000 UNIT; Start 10/01/17 at 21: 00 Brimonidine Tartrate (Alphagan P 0.1%) 1 drop BID BOTH EYES Last administered on 10/12/17 09:29; Admin Dose 1 DROP; Start 10/03/17 at 21:00 Silver Sulfadiazine 1 applic 1 applic DAILY TOP Last administered on 09:32; Admin Dose 1 APPLIC; Start 10/05/17 at 11:00 Daptomycin 290 mg/ Sodium Chloride 100 ml @ 200 mls/hr Q48H IVPB Last administered on 10/10/17 17:01; Admin Dose 200 MLS/HR; Start 10/08/17 at 18: 00 Colistimethate Sodium/Sodium Chloride (Coly-Mycin/NS) 100 ml @ 200 mls/hr Q24H IVPB Last administered on 10/11/17 15:03; Admin Dose 200 MLS/HR; Start 10/08 at 15:00 Miscellaneous Information (Pending [facility] Order For Wound Care) This patient reyes... PRN PRN XX WOUND CARE; Start 10/08/17 at 14:00 Hydrocortisone (Solu-Cortef) 25 mg Q8 IV Last administered on 10/12/17 05:24 ; Admin Dose 25 MG; Start 10/10/17 at 14:00 Insulin Aspart (Novolog Insulin Pen) NOVOLOG *MILD* ALGORITHM Q6 SC ; Start at 12:00 Assessment/Plan Chief Complaint/Hosp Course Assessment 1. Patient admitted for repair of right femoral artery pseudoaneurysm status post repair. 2. Status post septic shock on mechanical ventilation. Possible component of adrenal insufficiency. 3. Dysphagia with G-tube 4. End-stage renal failure on hemodialysis 5. Idiopathic pulmonary fibrosis. Chronic respiratory failure on mechanical ventilation 6. Encephalopathy possible toxic metabolic. CT head demonstrates no acute intracranial pathology. Plan 1. Continue mechanical ventilation, head of bed elevation aspiration precautions. 2. Continue antibiotics decrease steroids 3. Tube feeding as tolerated 4. Hemodialysis as tolerated Transfer back to [place] Problems: ANGELINA TRUJILLO MD, [facility] Oct 12, 2017 10:22
--- NOTE | 2017-10-12 12:57 | CONS ---
Date/Time of Note Date/Time of Note DATE: 10/12/17 TIME: 12:56 Assessment/Plan Assessment/Plan Additional Assessment/Plan IMPRESSION: 1. Status post aneurysm repair. 2. Septic shock. 3. Encephalopathy. CT scan of the brain no acute pathology, patient is still semi-comatose 4. Respiratory failure. 5. G-tube. 6. End-stage renal disease for which he is on dialysis. 7. Atrial fibrillation. 8. Anemia. 9. Nontoxic megacolon. 10. DVT status post IVC filter. PLAN: Continue all supportive care Continue dialysis on vent support Antibiotic as per ID Campbell flush as needed for abdominal distention Consultation Date/Type/Reason Admit Date/Time Sep 27, 2017 at 21:00 Initial Consult Date 09/28/17 Type of Consultation: pulm Referring Provider: PHILIPPE JUARES DO 24 HR Interval Summary Subjective hx not possible: pt non-verbal Constitutional: requiring IVF, requiring O2 Exam/Review of Systems Vital Signs Vitals Vital Signs Date Time Temp Pulse Resp B/P Pulse Ox O2 Delivery O2 Flow Rate FiO2 10/12/17 12:39 54 10/12/17 09:10 16 96 30 10/12/17 07:51 98.4 106/58 10/08/17 08:00 Mechanical Ventilator Intake and Output 10/11/17 10/11/17 10/12/17 15:00 23:00 07:00 Intake Total 700 ml 530 ml Balance 700 ml 530 ml Exam Constitutional: alert, oriented, well developed Psych: nl mood/affect, no complaints Head: atraumatic, normocephalic Eyes: EOMI, PERRL, nl conjunctiva, nl lids, nl sclera ENMT: nl external ears & nose, nl lips & teeth, nl nasal mucosa & septum Neck: non-tender, supple Respiratory: clear to auscultation, normal air movement Cardiovascular: nl pulses, regular rate and rhythm Gastrointestinal: nl liver, spleen, non-tender, soft Musculoskeletal: nl extremities to inspection, nl gait and stance Extremities: normal pulses Neurological: DEBONE SUPERVISOR II-XII intact, nl mental status, nl speech, nl strength Skin: nl turgor, No rash or lesions Lymph: nl lymph nodes Results Result Diagram: 10/11/17 0745 10/11/17 0745 Results 24 hrs Laboratory Tests Test 10/11/17 13:22 10/11/17 17:17 10/11/17 22:03 10/12/17 03:24 Bedside Glucose 123 125 118 108 Test 10/12/17 05:22 10/12/17 11:54 Bedside Glucose 128 154 Medications Medications Current Medications Hydromorphone HCl (Dilaudid) 0.5 mg Q4H PRN IV PAIN Last administered on 17:00; Admin Dose 0.5 MG; Start 09/27/17 at 23:00 Midodrine (Proamatine) 10 mg TID@ GTB Last administered on 10/12/17 09:39; Admin Dose 10 MG; Start 09/28/17 at 09:00 Ascorbic Acid (Vitamin C) 500 mg DAILY GTB Last administered on 10/12/17 09: 30; Admin Dose 500 MG; Start 09/28/17 at 09:00 Cholecalciferol (Vitamin D) 2,000 unit DAILY GTB Last administered on 09:30; Admin Dose 2,000 UNIT; Start 09/28/17 at 09:00 Ferrous Sulfate (Feosol Liquid Cup) 300 mg DAILY GTB Last administered on 10/12 09:29; Admin Dose 300 MG; Start 09/28/17 at 09:00 Folic Acid (Folic Acid) 1 mg DAILY GTB Last administered on 10/12/17 09:30; Admin Dose 1 MG; Start 09/28/17 at 09:00 Acetaminophen/ Hydrocodone Bitart (Ponce (5/325)) 1 tab DAILY GTB Last administered on 09/30/17 09:34; Admin Dose 1 TAB; Start 09/28/17 at 09:00; Status Future Hold Lactobacillus Acidophilus/ Rhamnosus (Culturelle) 1 cap BID GTB Last administered on 10/12/17 09:30; Admin Dose 1 CAP; Start 09/28/17 at 09:00 Sertraline HCl (Zoloft) 25 mg QHS GTB Last administered on 10/11/17 22:08; Admin Dose 25 MG; Start 09/28/17 at 21:00 Tramadol HCl (Ultram) 50 mg DAILY PRN GTB FOR WOUND CARE; Start 09/28/17 at 08 :00; Status Future Hold Tramadol HCl (Ultram) 50 mg Q8 GTB Last administered on 10/12/17 05:25; Admin Dose 50 MG; Start 09/28/17 at 14:00 Zolpidem Tartrate (Ambien) 5 mg QHS PRN GTB INSOMNIA; Start 09/28/17 at 08:00 Diagnostic Test (Pha) 1 ea 1 ea 02 XX Last administered on 10/08/17 01:31; Admin Dose 1 EA; Start 09/29/17 at 02:00 Dextrose/Sodium Chloride (D5-NS) 1,000 ml @ 20 mls/hr Q24H IV Last administered on 10/10/17 21:28; Admin Dose 20 MLS/HR; Start 09/28/17 at 19:00 Collagenase (Santyl) 1 applic DAILY TOP Last administered on 10/11/17 09:00; Admin Dose 1 APPLIC; Start 09/29/17 at 12:00 Docusate Sodium (Colace Liquid Cup) 100 mg BID GTB Last administered on 09:29; Admin Dose 100 MG; Start 09/30/17 at 21:00 Multivitamins/ Minerals (Theragran-M) 1 tab DAILY GTB Last administered on 09:48; Admin Dose 1 TAB; Start 09/30/17 at 10:00 Lansoprazole (Prevacid) 30 mg DAILY@06 GTB Last administered on 10/12/17 05: 24; Admin Dose 30 MG; Start 09/30/17 at 12:15 Hydrogen Peroxide (Hydrogen Peroxide) 1 applic BID TOP Last administered on 09:31; Admin Dose 1 APPLIC; Start 09/30/17 at 21:00 Heparin Sodium (Porcine) (Heparin (5000 Units/0.5 ml)) 5,000 unit BID SC Last administered on 10/12/17 09:40; Admin Dose 5,000 UNIT; Start 10/01/17 at 21: 00 Brimonidine Tartrate (Alphagan P 0.1%) 1 drop BID BOTH EYES Last administered on 10/12/17 09:29; Admin Dose 1 DROP; Start 10/03/17 at 21:00 Silver Sulfadiazine 1 applic 1 applic DAILY TOP Last administered on 09:32; Admin Dose 1 APPLIC; Start 11/17/17 at 11:00 Daptomycin 290 mg/ Sodium Chloride 100 ml @ 200 mls/hr Q48H IVPB Last administered on 10/10/17 17:01; Admin Dose 200 MLS/HR; Start 10/08/17 at 18: 00 Colistimethate Sodium/Sodium Chloride (Coly-Mycin/NS) 100 ml @ 200 mls/hr Q24H IVPB Last administered on 10/11/17 15:03; Admin Dose 200 MLS/HR; Start 10/08 at 15:00 Miscellaneous Information (Pending Santyl Order For Wound Care) This patient reyes... PRN PRN XX WOUND CARE; Start 10/08/17 at 14:00 Hydrocortisone (Solu-Cortef) 25 mg Q8 IV Last administered on 10/12/17 05:24 ; Admin Dose 25 MG; Start 10/10/17 at 14:00 Insulin Aspart (Novolog Insulin Pen) NOVOLOG *MILD* ALGORITHM Q6 SC Last administered on 10/12/17 12:00; Admin Dose 1 UNIT; Start 10/12/17 at 12:00 LIANNA BOWLING MD Oct 12, 2017 12:57
--- NOTE | 2017-10-12 13:23 | CONS ---
Date/Time of Note Date/Time of Note DATE: 10/12/17 TIME: 13:18 Assessment/Plan Assessment/Plan Chief Complaint/Hosp Course ID PROGRESS NOTE CURRENT ABX: DAY # =>Daptomycin, Colistin IV => Continued for Osteomyelitis s/p Diflucan, Merrem-> DC'd 24H INTERVAL SUMMARY * Clinically status quo => Encephalopathic, no response to verbal stimuli -> VSS * Remains on ABX for findings of sacral osteomyelitis PHYSICAL EXAMINATION: GENERAL: 87 yo critically on chronically ill/debilitated M, non-communicative, encephalopathic, VSS, afebrile, NAD HEENT: Unremarkable NECK: Supple, trach midline CHEST: Equal chest rise bilaterally, without dyspnea on observation HEART: RRR ABDOMEN: Large, NT, Peg w/surrounding cellulitis : NL M, anuric EXT: Warm, BUEXT ecchymosis w/edema R>L, BLEXT generalized edema, warm SKIN: No diaphoresis, multiple areas of ecchymosis, decubs - Right thigh DSG ID ASSESSMENT: 87 yo M PMHx dementia, HTN, HLD, DMT2, ESRD-HD admit [facility] ICU: 1. SIRS w/persistent leukocytosis == s/p Septic shock = > RESOLVED * 09/28/17 BCx (-) * Anuric, not able to obtain sample for cx 2. Right femoral pseudoaneurysm repair, status post right femoral pseudoaneurysm repair. 3. HCAP vs ASP PNA w/bilateral pleural effusions and opacification ILD, pulm edema / ATX 4. Multiple chronic wounds * Wound Cx: Del[place]ruz => ACBA, VRE, KP-ESBL, PSAR * Sacral coccygeal osteomyelitis, status post debridement. 5. G-tube site cellulitis. 6. Nontoxic megacolon. 7. Resolving right upper back rash, remains on empiric acyclovir. 8. Failure to thrive. 9. Endstage renal disease. 10. Acute on chronic encephalopathy. 11. Bilateral sinus disease (- )MRSA ABX ALLERGIES: None to ABX INVASIVES: : Trach, PEG,R- Perm-A-Cath, RUEXT-PICC CURRENT ABX: DAY # =>Daptomycin, Colistin IV => Continued for Osteomyelitis s/p Diflucan, Merrem-> DC'd ID RECOMMENDATIONS/PLAN: 1. Patient remains on continued lengthy course of IV ABX for sacral osteomyelitis 2. Continue current ABX -> ID colleague to clarify anticipated DC ABX date . . Problems: Consultation Date/Type/Reason Admit Date/Time Sep 27, 2017 at 21:00 Initial Consult Date 10/05/17 Type of Consultation: ID Referring Provider: PHILIPPE JUARES DO Exam/Review of Systems Vital Signs Vitals Vital Signs Date Time Temp Pulse Resp B/P Pulse Ox O2 Delivery O2 Flow Rate FiO2 10/12/17 12:39 54 10/12/17 09:10 16 96 30 10/12/17 07:51 98.4 106/58 10/08/17 08:00 Mechanical Ventilator Intake and Output 10/11/17 10/11/17 10/12/17 14:59 22:59 06:59 Intake Total 700 ml 530 ml Balance 700 ml 530 ml Results Result Diagram: 10/11/17 0745 10/11/17 0745 Results 24 hrs Laboratory Tests Test 10/11/17 13:22 10/11/17 17:17 10/11/17 22:03 10/12/17 03:24 Bedside Glucose 123 125 118 108 Test 10/12/17 05:22 10/12/17 11:54 Bedside Glucose 128 154 Medications Medications Current Medications Hydromorphone HCl (Dilaudid) 0.5 mg Q4H PRN IV PAIN Last administered on 17:00; Admin Dose 0.5 MG; Start 09/27/17 at 23:00 Midodrine (Proamatine) 10 mg TID@ GTB Last administered on 10/12/17 09:39; Admin Dose 10 MG; Start 09/28/17 at 09:00 Ascorbic Acid (Vitamin C) 500 mg DAILY GTB Last administered on 10/12/17 09: 30; Admin Dose 500 MG; Start 09/28/17 at 09:00 Cholecalciferol (Vitamin D) 2,000 unit DAILY GTB Last administered on 09:30; Admin Dose 2,000 UNIT; Start 09/28/17 at 09:00 Ferrous Sulfate (Feosol Liquid Cup) 300 mg DAILY GTB Last administered on 10/12 09:29; Admin Dose 300 MG; Start 09/28/17 at 09:00 Folic Acid (Folic Acid) 1 mg DAILY GTB Last administered on 10/12/17 09:30; Admin Dose 1 MG; Start 09/28/17 at 09:00 Acetaminophen/ Hydrocodone Bitart (Juliette (5/325)) 1 tab DAILY GTB Last administered on 09/30/17 09:34; Admin Dose 1 TAB; Start 09/28/17 at 09:00; Status Future Hold Lactobacillus Acidophilus/ Rhamnosus (Culturelle) 1 cap BID GTB Last administered on 10/12/17 09:30; Admin Dose 1 CAP; Start 09/28/17 at 09:00 Sertraline HCl (Zoloft) 25 mg QHS GTB Last administered on 10/11/17 22:08; Admin Dose 25 MG; Start 09/28/17 at 21:00 Tramadol HCl (Ultram) 50 mg DAILY PRN GTB FOR WOUND CARE; Start 09/28/17 at 08 :00; Status Future Hold Tramadol HCl (Ultram) 50 mg Q8 GTB Last administered on 10/12/17 05:25; Admin Dose 50 MG; Start 09/28/17 at 14:00 Zolpidem Tartrate (Ambien) 5 mg QHS PRN GTB INSOMNIA; Start 09/28/17 at 08:00 Diagnostic Test (Pha) 1 ea 1 ea 02 XX Last administered on 10/08/17 01:31; Admin Dose 1 EA; Start 09/29/17 at 02:00 Dextrose/Sodium Chloride (D5-NS) 1,000 ml @ 20 mls/hr Q24H IV Last administered on 10/10/17 21:28; Admin Dose 20 MLS/HR; Start 09/28/17 at 19:00 Collagenase (Santyl) 1 applic DAILY TOP Last administered on 10/11/17 09:00; Admin Dose 1 APPLIC; Start 09/29/17 at 12:00 Docusate Sodium (Colace Liquid Cup) 100 mg BID GTB Last administered on 09:29; Admin Dose 100 MG; Start 09/30/17 at 21:00 Multivitamins/ Minerals (Theragran-M) 1 tab DAILY GTB Last administered on 09:48; Admin Dose 1 TAB; Start 09/30/17 at 10:00 Lansoprazole (Prevacid) 30 mg DAILY@06 GTB Last administered on 10/12/17 05: 24; Admin Dose 30 MG; Start 09/30/17 at 12:15 Hydrogen Peroxide (Hydrogen Peroxide) 1 applic BID TOP Last administered on 09:31; Admin Dose 1 APPLIC; Start 09/30/17 at 21:00 Heparin Sodium (Porcine) (Heparin (5000 Units/0.5 ml)) 5,000 unit BID SC Last administered on 10/12/17 09:40; Admin Dose 5,000 UNIT; Start 10/01/17 at 21: 00 Brimonidine Tartrate (Alphagan P 0.1%) 1 drop BID BOTH EYES Last administered on 10/12/17 09:29; Admin Dose 1 DROP; Start 10/03/17 at 21:00 Silver Sulfadiazine 1 applic 1 applic DAILY TOP Last administered on 09:32; Admin Dose 1 APPLIC; Start 10/05/17 at 11:00 Daptomycin 290 mg/ Sodium Chloride 100 ml @ 200 mls/hr Q48H IVPB Last administered on 10/10/17 17:01; Admin Dose 200 MLS/HR; Start 10/08/17 at 18: 00 Colistimethate Sodium/Sodium Chloride (Coly-Mycin/NS) 100 ml @ 200 mls/hr Q24H IVPB Last administered on 10/11/17 15:03; Admin Dose 200 MLS/HR; Start 10/08 at 15:00 Miscellaneous Information (Pending [facility] Order For Wound Care) This patient reyes... PRN PRN XX WOUND CARE; Start 10/08/17 at 14:00 Hydrocortisone (Solu-Cortef) 25 mg Q8 IV Last administered on 10/12/17 05:24 ; Admin Dose 25 MG; Start 10/10/17 at 14:00 Insulin Aspart (Novolog Insulin Pen) NOVOLOG *MILD* ALGORITHM Q6 SC Last administered on 10/12/17 12:00; Admin Dose 1 UNIT; Start 10/12/17 at 12:00 NURYS FLOREZ NP Oct 12, 2017 13:23
[2017-10-12] MEDS: COLLAGENASE 30 GM TUBE TOP SCH (13:29)
[2017-10-12] MEDS: DEXTROSE 5%-0.9% NACL 1,000 ML IV SCH ×2 (14:25→19:00)
[2017-10-12] MEDS: COLISTIMETHATE 75 MG in SOD CHLORIDE 0.9% 100 ML IVPB SCH (15:53)
--- NOTE | 2017-10-12 16:02 | CONS ---
Date/Time of Note Date/Time of Note DATE: 10/12/17 TIME: 16:01 Consult Date/Type/Reason Admit Date/Time Sep 27, 2017 at 21:00 Initial Consult Date 09/28/17 Type of Consultation: card Ordering Provider: PHILIPPE JUARES DO Subjective Cardiology follow up note S: D/ W staff and rhythm was reviewed. pt remains in Afib. his HR is on the low side. pt still with frequent PVC and ventricular bigeminy still. also with short runs of VT. no torsades overnight. pt remains lethargic and novnerbal now still on vent but out of ICU d/w . code statues is DNR now O: General: Thin. s/p trach on vent. no acute distress HEENT: NC/AT. pupils are equal. round. NECK: s/p trach. . no stridor. CV: irregularly irregular. systolic murmur; no gallop or rubs. PULM: no wheezing . + rhonchi. GI: SOFT, NT, ND, no rebound or guarding vascular: R fem s/p surgery Extremity: diffuse B/L LE and UE edema. . neuro: lethargic Psych: calm and pleasant rectal: deferred : normal male Derm: With diffuse ecchymosis throughout the body. CXR reviewed. ECHO: 1. Normal left ventricular systolic function. Normal left ventricular cavity size. Moderate concentric left ventricular hypertrophy. Ejection fraction is visually estimated at 65 %. Abnormal Diastolic Function. 2. Aortic sclerosis without stenosis. Objective Vital Signs Date Time Temp Pulse Resp B/P Pulse Ox O2 Delivery O2 Flow Rate FiO2 10/12/17 15:33 67 14 99 30 10/12/17 14:56 98.5 117/58 10/08/17 08:00 Mechanical Ventilator Intake and Output 10/11/17 10/11/17 10/12/17 15:00 23:00 07:00 Intake Total 700 ml 530 ml Balance 700 ml 530 ml Results/Medications Result Diagram: 10/11/17 0745 10/11/17 0745 Results 24 hrs Laboratory Tests Test 10/11/17 17:17 10/11/17 22:03 10/12/17 03:24 10/12/17 05:22 Bedside Glucose 125 118 108 128 Test 10/12/17 11:54 Bedside Glucose 154 Medications Current Medications Hydromorphone HCl (Dilaudid) 0.5 mg Q4H PRN IV PAIN Last administered on 17:00; Admin Dose 0.5 MG; Start 09/27/17 at 23:00 Midodrine (Proamatine) 10 mg TID@, GTB Last administered on 10/12/17 13:30; Admin Dose 10 MG; Start 09/28/17 at 09:00 Ascorbic Acid (Vitamin C) 500 mg DAILY GTB Last administered on 10/12/17 09: 30; Admin Dose 500 MG; Start 09/28/17 at 09:00 Cholecalciferol (Vitamin D) 2,000 unit DAILY GTB Last administered on 09:30; Admin Dose 2,000 UNIT; Start 09/28/17 at 09:00 Ferrous Sulfate (Feosol Liquid Cup) 300 mg DAILY GTB Last administered on 10/12 09:29; Admin Dose 300 MG; Start 09/28/17 at 09:00 Folic Acid (Folic Acid) 1 mg DAILY GTB Last administered on 10/12/17 09:30; Admin Dose 1 MG; Start 09/28/17 at 09:00 Acetaminophen/ Hydrocodone Bitart ([place] (5/325)) 1 tab DAILY GTB Last administered on 09/30/17 09:34; Admin Dose 1 TAB; Start 09/28/17 at 09:00; Status Future Hold Lactobacillus Acidophilus/ Rhamnosus (Culturelle) 1 cap BID GTB Last administered on 10/12/17 09:30; Admin Dose 1 CAP; Start 09/28/17 at 09:00 Sertraline HCl (Zoloft) 25 mg QHS GTB Last administered on 10/11/17 22:08; Admin Dose 25 MG; Start 09/28/17 at 21:00 Tramadol HCl (Ultram) 50 mg DAILY PRN GTB FOR WOUND CARE; Start 09/28/17 at 08 :00; Status Future Hold Tramadol HCl (Ultram) 50 mg Q8 GTB Last administered on 10/12/17 13:30; Admin Dose 50 MG; Start 09/28/17 at 14:00 Zolpidem Tartrate (Ambien) 5 mg QHS PRN GTB INSOMNIA; Start 09/28/17 at 08:00 Diagnostic Test (Pha) 1 ea 1 ea 02 XX Last administered on 10/08/17 01:31; Admin Dose 1 EA; Start 09/29/17 at 02:00 Dextrose/Sodium Chloride (D5-NS) 1,000 ml @ 20 mls/hr Q24H IV Last administered on 10/10/17 21:28; Admin Dose 20 MLS/HR; Start 09/28/17 at 19:00 Collagenase (Santyl) 1 applic DAILY TOP Last administered on 10/12/17 13:29; Admin Dose 1 APPLIC; Start 09/29/17 at 12:00 Docusate Sodium (Colace Liquid Cup) 100 mg BID GTB Last administered on 09:29; Admin Dose 100 MG; Start 09/30/17 at 21:00 Multivitamins/ Minerals (Theragran-M) 1 tab DAILY GTB Last administered on 09:48; Admin Dose 1 TAB; Start 09/30/17 at 10:00 Lansoprazole (Prevacid) 30 mg DAILY@06 GTB Last administered on 10/12/17 05: 24; Admin Dose 30 MG; Start 09/30/17 at 12:15 Hydrogen Peroxide (Hydrogen Peroxide) 1 applic BID TOP Last administered on 09:31; Admin Dose 1 APPLIC; Start 09/30/17 at 21:00 Heparin Sodium (Porcine) (Heparin (5000 Units/0.5 ml)) 5,000 unit BID SC Last administered on 10/12/17 09:40; Admin Dose 5,000 UNIT; Start 10/01/17 at 21: 00 Brimonidine Tartrate (Alphagan P 0.1%) 1 drop BID BOTH EYES Last administered on 10/12/17 09:29; Admin Dose 1 DROP; Start 10/03/17 at 21:00 Silver Sulfadiazine 1 applic 1 applic DAILY TOP Last administered on 09:32; Admin Dose 1 APPLIC; Start 10/05/17 at 11:00 Daptomycin 290 mg/ Sodium Chloride 100 ml @ 200 mls/hr Q48H IVPB Last administered on 10/10/17 17:01; Admin Dose 200 MLS/HR; Start 10/08/17 at 18: 00 Colistimethate Sodium/Sodium Chloride (Coly-Mycin/NS) 100 ml @ 200 mls/hr Q24H IVPB Last administered on 10/12/17 15:53; Admin Dose 200 MLS/HR; Start 10/08 at 15:00 [facility] This patient reyes... PRN PRN XX WOUND CARE; Start 10/08/17 at 14:00 Hydrocortisone (Solu-Cortef) 25 mg Q8 IV Last administered on 10/12/17 13:29 ; Admin Dose 25 MG; Start 10/10/17 at 14:00 Insulin Aspart (Novolog Insulin Pen) NOVOLOG *MILD* ALGORITHM Q6 SC Last administered on 10/12/17 12:00; Admin Dose 1 UNIT; Start 10/12/17 at 12:00 Assessment/Plan Chief Complaint/Hosp Course 1. S/P septic SHOCK: BP is better now and off of pressors. 2. Afib: persistent/ chronic now. 3. hypoxemic resp failure: s/p trach vent dependent now. 4. hx anemia and GI bleed: off of any anticoagulation 5. 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 s/p multiple infections 8. dysphagia: s/p PEG 9. encephalopathy: 10. fluid overload/ CHF/ anasarca: ACUTE on chronic due to fluid overload and diastolic failure. 11. Ventricular arrhythmia and PVC/ VT and even torsades: not a good candidate for amiodarone due to prolonged QT and episodes of torsades and bradycardia now . Recommendations: Vent support will be continued for now. Hemodialysis will be managed by nephrology team .correction of electrolytes with assistance of HD cont Heart rate control Transfusion prn has been given. Patient currently off of full anticoagulation due to concern about history of severe anemia as well as GI bleed and OB positive stool. prognosis is poor code is DNR now Thank you for his referral. I will continue to follow along with you. DIOR JEFFERSON MD [facility] Problems: DIOR JEFFERSON MD Oct 12, 2017 16:02
[2017-10-12] MEDS: DAPTOMYCIN IVPB SCH (17:22)
[2017-10-12] MEDS: SOD CHLORIDE 0.9% IVPB SCH (17:22)
[2017-10-12] MEDS: SERTRALINE 50 MG TAB GTB SCH (22:34)
[2017-10-13] VITALS (25 sets, daily range): BP systolic 92–113; BP diastolic 50–59; PULSE 30–70; RESP 12–24
[2017-10-13] MEDS: ACCU-CHEK XX SCH (02:00)
[2017-10-13] MEDS: LANSOPRAZOLE 30 MG CAP GTB SCH (05:42)
[2017-10-13] MEDS: HYDROCORTISONE 100 MG INJ IV SCH ×3 (05:43→21:48)
[2017-10-13] MEDS: traMADol 50 MG TAB GTB SCH ×3 (05:43→21:56)
[2017-10-13] MEDS: INSULIN ASPART [NOVOLOG] 3 ML PEN SC SCH ×5 (05:56→23:31)
--- NOTE | 2017-10-13 08:30 | PN ---
Date/Time of Note Date/Time of Note DATE: 10/13/17 TIME: 08:29 Assessment/Plan VTE Prophylaxis VTE Prophylaxis Intervention: SCD's Lines/Catheters [facility] PERMACATH Urinary Cath still in place: No Assessment/Plan Assessment/Plan 1. S/P septic SHOCK: 2. Afib: persistent/ chronic now. 3. hypoxemic resp failure: s/p trach vent dependent now. 4. hx anemia and GI bleed: off of any anticoagulation 5. 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 s/p multiple infections 8. dysphagia: s/p PEG 9. encephalopathy: 10. fluid overload/ CHF/ anasarca: ACUTE on chronic due to fluid overload and diastolic failure. 11. Ventricular arrhythmia and PVC/ VT and even torsades: not a good candidate for amiodarone due to prolonged QT and episodes of torsades and bradycardia now . Recommendations: Vent support will be continued for now. Hemodialysis will be managed by nephrology team .correction of electrolytes with assistance of HD cont Heart rate control Transfusion prn has been given. Patient currently off of full anticoagulation due to concern about history of severe anemia as well as GI bleed and OB positive stool. prognosis is poor code is DNR now Subjective 24 Hr Interval Summary Free Text/Dictation The pateit with no change Exam/Review of Systems Vital Signs Vitals Vital Signs Date Time Temp Pulse Resp B/P Pulse Ox O2 Delivery O2 Flow Rate FiO2 10/13/17 08:13 51 10/13/17 07:52 97.4 24 95/50 94 10/13/17 05:33 40 Intake and Output 10/12/17 10/12/17 10/13/17 14:59 22:59 06:59 Intake Total 500 ml 1100 ml Output Total 1500 ml Balance -1000 ml 1100 ml Results Result Diagram: 10/11/17 0745 10/11/17 0745 Results 24 hrs Laboratory Tests Test 10/12/17 11:54 10/12/17 17:20 10/13/17 00:31 10/13/17 05:38 Bedside Glucose 154 152 144 151 Test 10/13/17 07:46 White Blood Count Pending Red Blood Count Pending Hemoglobin Pending Hematocrit Pending Mean Corpuscular Volume Pending Mean Corpuscular Hemoglobin Pending Mean Corpuscular Hemoglobin Concent Pending Red Cell Distribution Width Pending Platelet Count Pending Mean Platelet Volume Pending Medications Medications Current Medications Hydromorphone HCl (Dilaudid) 0.5 mg Q4H PRN IV PAIN Last administered on 17:00; Admin Dose 0.5 MG; Start 09/27/17 at 23:00 Midodrine (Proamatine) 10 mg TID@ GTB Last administered on 10/12/17 17:23; Admin Dose 10 MG; Start 09/28/17 at 09:00 Ascorbic Acid (Vitamin C) 500 mg DAILY GTB Last administered on 10/12/17 09: 30; Admin Dose 500 MG; Start 09/28/17 at 09:00 Cholecalciferol (Vitamin D) 2,000 unit DAILY GTB Last administered on 09:30; Admin Dose 2,000 UNIT; Start 09/28/17 at 09:00 Ferrous Sulfate (Feosol Liquid Cup) 300 mg DAILY GTB Last administered on 10/12 09:29; Admin Dose 300 MG; Start 09/28/17 at 09:00 Folic Acid (Folic Acid) 1 mg DAILY GTB Last administered on 10/12/17 09:30; Admin Dose 1 MG; Start 09/28/17 at 09:00 Acetaminophen/ Hydrocodone Bitart ([place] (5/325)) 1 tab DAILY GTB Last administered on 09/30/17 09:34; Admin Dose 1 TAB; Start 09/28/17 at 09:00; Status Future Hold Lactobacillus Acidophilus/ Rhamnosus (Culturelle) 1 cap BID GTB Last administered on 10/12/17 22:34; Admin Dose 1 CAP; Start 09/28/17 at 09:00 Sertraline HCl (Zoloft) 25 mg QHS GTB Last administered on 10/12/17 22:34; Admin Dose 25 MG; Start 09/28/17 at 21:00 Tramadol HCl (Ultram) 50 mg DAILY PRN GTB FOR WOUND CARE; Start 09/28/17 at 08 :00; Status Future Hold Tramadol HCl (Ultram) 50 mg Q8 GTB Last administered on 10/13/17 05:43; Admin Dose 50 MG; Start 09/28/17 at 14:00 Zolpidem Tartrate (Ambien) 5 mg QHS PRN GTB INSOMNIA; Start 09/28/17 at 08:00 Diagnostic Test (Pha) 1 ea 1 ea 02 XX Last administered on 10/08/17 01:31; Admin Dose 1 EA; Start 09/29/17 at 02:00 Dextrose/Sodium Chloride (D5-NS) 1,000 ml @ 20 mls/hr Q24H IV Last administered on 10/10/17 21:28; Admin Dose 20 MLS/HR; Start 09/28/17 at 19:00 Collagenase (Santyl) 1 applic DAILY TOP Last administered on 10/12/17 13:29; Admin Dose 1 APPLIC; Start 09/29/17 at 12:00 Docusate Sodium (Colace Liquid Cup) 100 mg BID GTB Last administered on 22:34; Admin Dose 100 MG; Start 09/30/17 at 21:00 Multivitamins/ Minerals (Theragran-M) 1 tab DAILY GTB Last administered on 09:48; Admin Dose 1 TAB; Start 09/30/17 at 10:00 Lansoprazole (Prevacid) 30 mg DAILY@06 GTB Last administered on 10/13/17 05: 42; Admin Dose 30 MG; Start 09/30/17 at 12:15 Hydrogen Peroxide (Hydrogen Peroxide) 1 applic BID TOP Last administered on 22:33; Admin Dose 1 APPLIC; Start 09/30/17 at 21:00 Heparin Sodium (Porcine) (Heparin (5000 Units/0.5 ml)) 5,000 unit BID SC Last administered on 10/12/17 22:40; Admin Dose 5,000 UNIT; Start 10/01/17 at 21: 00 Brimonidine Tartrate (Alphagan P 0.1%) 1 drop BID BOTH EYES Last administered on 10/12/17 22:33; Admin Dose 1 DROP; Start 10/03/17 at 21:00 Silver Sulfadiazine 1 applic 1 applic DAILY TOP Last administered on 09:32; Admin Dose 1 APPLIC; Start 10/05/17 at 11:00 Daptomycin 290 mg/ Sodium Chloride 100 ml @ 200 mls/hr Q48H IVPB Last administered on 10/12/17 17:22; Admin Dose 200 MLS/HR; Start 10/08/17 at 18: 00 Colistimethate Sodium/Sodium Chloride (Coly-Mycin/NS) 100 ml @ 200 mls/hr Q24H IVPB Last administered on 10/12/17 15:53; Admin Dose 200 MLS/HR; Start 10/08 at 15:00 [facility]iscellaneous [facility] This patient reyes... PRN PRN XX WOUND CARE; Start 10/08/17 at 14:00 Hydrocortisone (Solu-Cortef) 25 mg Q8 IV Last administered on 10/13/17 05:43 ; Admin Dose 25 MG; Start 10/10/17 at 14:00 Insulin Aspart (Novolog Insulin Pen) NOVOLOG *MILD* ALGORITHM Q6 SC Last administered on 10/13/17 05:56; Admin Dose 1 UNIT; Start 10/12/17 at 12:00 YASSINE WADDELL MD Oct 13, 2017 08:30
--- NOTE | 2017-10-13 08:42 | PN ---
DATE: 10/13/2017 SUBJECTIVE: The patient remains obtunded. No response. No other events noted. The patient had he modialysis yesterday with 1 liter removed. OBJECTIVE: VITAL SIGNS: Blood pressure is 105/55, respirations 12, pulse 72, temperature 97.2. HEENT: Head is normocephalic. NECK: Supple. HEART: Regular rate. LUNGS: Show diminished breath sounds at the base. ABDOMEN: Soft, nontender to palpation. No rebound or guarding. EXTREMITIES: Negative for clubbing, cyanosis. Positive edema, diffuse anasarca. DERMATOLOGIC: No rashes. MUSCULOSKELETAL: No joint effusions. NEUROLOGIC: Patient remains obtunded. LABORATORY DATA: Has been reviewed. ASSESSMENT AND PLAN: 1. Sepsis, status post shock secondary to pneumonia. The patient has completed antibiotic course. 2. Arrhythmia with episodes of nonsustained ventricular tachycardia. Continue medical management a nd follow up with cardiology. 3. Ventilator-dependent respiratory failure. Ventilator settings and ABG is reviewed 4. Right pseudoaneurysm, status post repair. 5. Acute encephalopathy. Etiology is likely toxic metabolic. The patient remains obtunded. [facility] scan shows no acute findings. 6. Endstage renal disease. Continue dialysis intermittently as tolerated. 7. Volume overload secondary to congestive heart failure, endstage renal disease. Continue ultrafi ltration with dialysis. 8. Mineral bone disorder. Monitor calcium and phosphorus levels. 9. Hyponatremia. Continue dialysis on a 140 sodium bath. 10. Decubitus wound. Continue wound care. 11. Dysphagia, status post percutaneous endoscopic gastrostomy. Continue tube feeding. 12. Gastrointestinal and deep venous thrombosis prophylaxis. DISPOSITION: The patient's overall prognosis is poor. Pending possible transfer to SNF. Dictated By: PHILIPPE WILSON/NTS Conf#: [id number] DID#: [id number]
[2017-10-13] MEDS: BRIMONIDINE 0.1% 5 ML OPH BOTH EYES SCH ×2 (08:59→21:48)
[2017-10-13] MEDS: COLLAGENASE 30 GM TUBE TOP SCH (09:00)
[2017-10-13] MEDS: CHOLECALCIFEROL 2,000 UNIT CAP GTB SCH (09:00)
[2017-10-13] MEDS: FERROUS SULFATE 60 MG/ML 5ML CUP GTB SCH (09:00)
[2017-10-13] MEDS: HYDROGEN PEROXIDE 118 ML TOP SCH ×2 (09:00→21:49)
[2017-10-13] MEDS: DOCUSATE SODIUM 10 MG/ML (10ML CUP) GTB SCH ×2 (09:00→21:48)
[2017-10-13] MEDS: MIDODRINE 5 MG TAB GTB SCH ×3 (09:00→17:27)
[2017-10-13] MEDS: LACTOBACILLUS RHAMNOSUS CAP GTB SCH ×2 (09:00→21:48)
[2017-10-13] MEDS: FOLIC ACID 1 MG TAB GTB SCH (09:01)
[2017-10-13] MEDS: ASCORBIC ACID 500 MG TAB GTB SCH (09:01)
[2017-10-13] MEDS: MULTIVITAMINS/MINERALS TAB GTB SCH (09:01)
[2017-10-13] MEDS: HEPARIN 5,000 UNIT/0.5 ML VIAL SC SCH ×2 (09:02→21:52)
[2017-10-13] MEDS: SILVER SULFADIAZINE 1% 25 GM CR TOP SCH (09:03)
[2017-10-13 09:04] LABS: CREATININE 1.65 mg/dl (0.61-1.24); MAGNESIUM 2.8 mg/dl (1.7-2.5); PHOSPHORUS 4.7 mg/dl (2.5-4.9); POTASSIUM 5.1 mmol/L (3.5-5.1)
[2017-10-13 09:56] LABS: ABNORMAL IP MESSAGE 1; BASOPHILS % 0.1 % (0.0-2.0); EOSINOPHILS % 0.1 % (0.0-7.0); HEMATOCRIT 27.8 % (42.0-52.0); HEMOGLOBIN 8.8 g/dl (14.0-18.0); LYMPHOCYTES # 0.4 10^3/ul (0.8-2.9); LYMPHOCYTES % 2.7 % (15.0-51.0); MEAN CORPUSCULAR HEMOGLOBIN 31.9 pg (29.0-33.0); MEAN CORPUSCULAR HGB CONC 31.7 g/dl (32.0-37.0); MEAN CORPUSCULAR VOLUME 100.7 fl (82.0-101.0); MONOCYTE # 0.9 10^3/ul (0.3-0.9); MONOCYTES % 6.1 % (0.0-11.0); NEUTROPHIL # 12.4 10^3/ul (1.6-7.5); NEUTROPHILS % 88.5 % (39.0-77.0); NUCLEATED RED BLOOD CELLS # 0.2 10^3/ul (0.0-0.0); NUCLEATED RED BLOOD CELLS% 1.4 /100WBC (0.0-0.0); POSITIVE DIFF @See below; RED BLOOD COUNT 2.76 10^6/ul (4.70-6.10); RED CELL DISTRIBUTION WIDTH 21.7 % (11.5-14.5)
[2017-10-13 09:58] LABS: PLATELET COUNT 43 10^3/UL (140-415)
--- NOTE | 2017-10-13 10:23 | CONS ---
Date/Time of Note Date/Time of Note DATE: 10/13/17 TIME: 10:21 Consult Date/Type/Reason Admit Date/Time Sep 27, 2017 at 21:00 Initial Consult Date 09/28/17 Type of Consultation: Pulmonary Ordering Provider: PHILIPPE JUARES DO Subjective Patient appears comfortable this morning. Objective Vital Signs Date Time Temp Pulse Resp B/P Pulse Ox O2 Delivery O2 Flow Rate FiO2 10/13/17 09:10 44 12 100 40 10/13/17 07:52 97.4 95/50 Intake and Output 10/12/17 10/12/17 10/13/17 15:00 23:00 07:00 Intake Total 500 ml 1100 ml Output Total 1500 ml Balance -1000 ml 1100 ml Exam GENERAL: Elderly gentleman comfortable at rest on mechanical ventilation. VITAL SIGNS: per chart NECK: Supple. No JVD or lymphadenopathy. CARDIAC EXAM: S1, S2. No added sounds or murmurs. CHEST: clear bilaterally, No added sounds, rales or wheezes ABDOMEN: Soft, nontender. No guarding or rebound. EXTREMITIES: No cyanosis, clubbing or edema. NEUROLOGIC: Generalized weakness. No focal deficits. Results/Medications Result Diagram: 10/13/17 0746 10/13/17 0746 Results 24 hrs Laboratory Tests Test 10/12/17 11:54 10/12/17 17:20 10/13/17 00:31 10/13/17 05:38 Bedside Glucose 154 152 144 151 Test 10/13/17 07:46 White Blood Count 14.0 H Red Blood Count 2.76 L Hemoglobin 8.8 L Hematocrit 27.8 L Mean Corpuscular Volume 100.7 Mean Corpuscular Hemoglobin 31.9 Mean Corpuscular Hemoglobin Concent 31.7 L Red Cell Distribution Width 21.7 H Platelet Count 43 #L Mean Platelet Volume Neutrophils % 88.5 H Lymphocytes % 2.7 L Monocytes % 6.1 Eosinophils % 0.1 Basophils % 0.1 Nucleated Red Blood Cells % 1.4 H Neutrophils # 12.4 H Lymphocytes # 0.4 L Monocytes # 0.9 Eosinophils # 0.0 Basophils # 0.0 Nucleated Red Blood Cells # 0.2 H Sodium Level 135 Potassium Level 5.1 Chloride Level 98 Carbon Dioxide Level 27 Anion Gap 15 Blood Urea Nitrogen 72 H Creatinine 1.65 H Glucose Level 116 Calcium Level 8.0 L Phosphorus Level 4.7 Magnesium Level 2.8 H Creatine Kinase < 20 L Medications Current Medications Hydromorphone HCl (Dilaudid) 0.5 mg Q4H PRN IV PAIN Last administered on 17:00; Admin Dose 0.5 MG; Start 09/27/17 at 23:00 Midodrine (Proamatine) 10 mg TID@,, GTB Last administered on 10/13/17 09:00; Admin Dose 10 MG; Start 09/28/17 at 09:00 Ascorbic Acid (Vitamin C) 500 mg DAILY GTB Last administered on 10/13/17 09: 01; Admin Dose 500 MG; Start 09/28/17 at 09:00 Cholecalciferol (Vitamin D) 2,000 unit DAILY GTB Last administered on 09:00; Admin Dose 2,000 UNIT; Start 09/28/17 at 09:00 Ferrous Sulfate (Feosol Liquid Cup) 300 mg DAILY GTB Last administered on 10/13 09:00; Admin Dose 300 MG; Start 09/28/17 at 09:00 Folic Acid (Folic Acid) 1 mg DAILY GTB Last administered on 10/13/17 09:01; Admin Dose 1 MG; Start 09/28/17 at 09:00 Acetaminophen/ Hydrocodone Bitart ([place] (5/325)) 1 tab DAILY GTB Last administered on 09/30/17 09:34; Admin Dose 1 TAB; Start 09/28/17 at 09:00; Status Future Hold Lactobacillus Acidophilus/ Rhamnosus (Culturelle) 1 cap BID GTB Last administered on 10/13/17 09:00; Admin Dose 1 CAP; Start 09/28/17 at 09:00 Sertraline HCl (Zoloft) 25 mg QHS GTB Last administered on 10/12/17 22:34; Admin Dose 25 MG; Start 09/28/17 at 21:00 Tramadol HCl (Ultram) 50 mg DAILY PRN GTB FOR WOUND CARE; Start 09/28/17 at 08 :00; Status Future Hold Tramadol HCl (Ultram) 50 mg Q8 GTB Last administered on 10/13/17 05:43; Admin Dose 50 MG; Start 09/28/17 at 14:00 Zolpidem Tartrate (Ambien) 5 mg QHS PRN GTB INSOMNIA; Start 09/28/17 at 08:00 Diagnostic Test (Pha) 1 ea 1 ea 02 XX Last administered on 10/08/17 01:31; Admin Dose 1 EA; Start 09/29/17 at 02:00 Dextrose/Sodium Chloride (D5-NS) 1,000 ml @ 20 mls/hr Q24H IV Last administered on 10/10/17 21:28; Admin Dose 20 MLS/HR; Start 09/28/17 at 19:00 Collagenase (Santyl) 1 applic DAILY TOP Last administered on 10/12/17 13:29; Admin Dose 1 APPLIC; Start 09/29/17 at 12:00 Docusate Sodium (Colace Liquid Cup) 100 mg BID GTB Last administered on 09:00; Admin Dose 100 MG; Start 09/30/17 at 21:00 Multivitamins/ Minerals (Theragran-M) 1 tab DAILY GTB Last administered on 09:01; Admin Dose 1 TAB; Start 09/30/17 at 10:00 Lansoprazole (Prevacid) 30 mg DAILY@06 GTB Last administered on 10/13/17 05: 42; Admin Dose 30 MG; Start 09/30/17 at 12:15 Hydrogen Peroxide (Hydrogen Peroxide) 1 applic BID TOP Last administered on 22:33; Admin Dose 1 APPLIC; Start 09/30/17 at 21:00 Heparin Sodium (Porcine) (Heparin (5000 Units/0.5 ml)) 5,000 unit BID SC Last administered on 10/13/17 09:02; Admin Dose 5,000 UNIT; Start 10/01/17 at 21: 00 Brimonidine Tartrate (Alphagan P 0.1%) 1 drop BID BOTH EYES Last administered on 10/13/17 08:59; Admin Dose 1 DROP; Start 10/03/17 at 21:00 Silver Sulfadiazine 1 applic 1 applic DAILY TOP Last administered on 09:03; Admin Dose 1 APPLIC; Start 10/05/17 at 11:00 Daptomycin 290 mg/ Sodium Chloride 100 ml @ 200 mls/hr Q48H IVPB Last administered on 10/12/17 17:22; Admin Dose 200 MLS/HR; Start 10/08/17 at 18: 00 Colistimethate Sodium/Sodium Chloride (Coly-Mycin/NS) 100 ml @ 200 mls/hr Q24H IVPB Last administered on 10/12/17 15:53; Admin Dose 200 MLS/HR; Start 10/08 at 15:00 Miscellaneous Information (Pending Santyl Order For Wound Care) This patient reyes... PRN PRN XX WOUND CARE; Start 10/08/17 at 14:00 Hydrocortisone (Solu-Cortef) 25 mg Q8 IV Last administered on 10/13/17 05:43 ; Admin Dose 25 MG; Start 10/10/17 at 14:00 Insulin Aspart (Novolog Insulin Pen) NOVOLOG *MILD* ALGORITHM Q6 SC Last administered on 10/13/17 05:56; Admin Dose 1 UNIT; Start 10/12/17 at 12:00 Assessment/Plan Chief Complaint/Hosp Course Assessment 1. Patient admitted for repair of right femoral artery pseudoaneurysm status post repair. 2. Status post septic shock on mechanical ventilation. Possible component of adrenal insufficiency. 3. Dysphagia with G-tube 4. End-stage renal failure on hemodialysis 5. Idiopathic pulmonary fibrosis. Chronic respiratory failure on mechanical ventilation 6. Encephalopathy possible toxic metabolic. CT head demonstrates no acute intracranial pathology. Plan 1. Continue mechanical ventilation, head of bed elevation aspiration precautions. 2. Continue antibiotics decrease steroids 3. Tube feeding as tolerated 4. Hemodialysis as tolerated Transfer back to [place] or [place] to retirement facility. Problems: ANGELINA TRUJILLO MD[facility] Oct 13, 2017 10:23
[2017-10-13 10:51] LABS: ANISOCYTOSIS 3+ (0-0); ERYTHROBLAST% (NRBC) (M) 2 % (0-0); HYPOCHROMASIA 2+ (0-0); MONOCYTES % (M) 7 % (0-11); MYELOCYTES % (M) 3 % (0-0); PLATELET ESTIMATE SIG DECREASED; POIKILOCYTOSIS 1+ (0-0); POLYCHROMASIA 3+ (0-0); PROMYELOCYTES #M 0.4 10^3/ul (0-0); PROMYELOCYTES % (M) 3 % (0-0)
--- NOTE | 2017-10-13 11:39 | PN ---
DATE: 10/12/2017 SUBJECTIVE: The patient remains obtunded. No other acute events noted. OBJECTIVE: VITAL SIGNS: Blood pressure is 106/58, temperature 98.4, pulse 66, respirations 20. HEENT: Head is normocephalic. NECK: Supple. HEART: Regular rate. LUNGS: Show diminished breath sounds at base. ABDOMEN: Soft, nontender to palpation. No rebound or guarding. EXTREMITIES: Negative for clubbing, cyanosis. Positive edema, diffuse anasarca. DERMATOLOGIC: No rashes. MUSCULOSKELETAL: No joint effusions. NEUROLOGIC: No change in exam. MEDICATIONS: Have been reviewed. LABORATORY DATA: Has been reviewed. ASSESSMENT AND PLAN: 1. Sepsis, status post shock secondary to pneumonia. Continue current antibiotic regimen. 2. Sinus arrhythmia with nonsustained ventricular tachycardia. Continue medical management. 3. Ventilator-dependent respiratory failure. Vent settings and ABGs reviewed. 4. Right pseudoaneurysm repair, status post surgical correction. 5. Acute encephalopathy, etiology secondary to toxic metabolic, possibly uremic. The patient remai ns obtunded. CT scan showed no acute findings. 6. End-stage renal disease. Continue dialysis for volume removal. 7. Volume overload secondary to congestive heart failure, end-stage renal disease. Continue ultraf iltration. 8. Mineral bone disorder, monitor calcium and phosphorus levels. 9. Dysphagia, status post PEG. Continue tube feeding. 10. Decubitus wound. Continue wound care. 11. Gastrointestinal and deep venous thrombosis prophylaxis. DISPOSITION: The patient's overall prognosis remains poor, pending transfer possibly to [place]. Dictated By: PHILIPPE WILSON/NORM Conf#: [id number] DID#: [id number]
--- NOTE | 2017-10-13 15:37 | CONS ---
Date/Time of Note Date/Time of Note DATE: 10/13/17 TIME: 15:35 Assessment/Plan Assessment/Plan Chief Complaint/Hosp Course ID PROGRESS NOTE CURRENT ABX: DAY # =>Daptomycin, Colistin IV => Continued for Osteomyelitis s/p Diflucan, Merrem-> DC'd 24H INTERVAL SUMMARY * WBC up today to 14.o, no fevers, Clinically status quo => Encephalopathic, no response to verbal stimuli -> VSS * Remains on ABX for findings of sacral osteomyelitis PHYSICAL EXAMINATION: GENERAL: 87 yo critically on chronically ill/debilitated M, non-communicative, encephalopathic, VSS, afebrile, NAD HEENT: Unremarkable NECK: Supple, trach midline CHEST: Equal chest rise bilaterally, without dyspnea on observation HEART: RRR ABDOMEN: Large, NT, Peg w/surrounding cellulitis : NL M, anuric EXT: Warm, BUEXT ecchymosis w/edema R>L, BLEXT generalized edema, warm SKIN: No diaphoresis, multiple areas of ecchymosis, decubs - Right thigh DSG ID ASSESSMENT: 87 yo M PMHx dementia, HTN, HLD, DMT2, ESRD-HD admit [facility] ICU: 1. SIRS w/persistent leukocytosis == s/p Septic shock = > RESOLVED * 09/28/17 BCx (-) * Hx of recurrent yeast UTI -> s/p VFEND 2. Right femoral pseudoaneurysm repair, status post right femoral pseudoaneurysm repair. 3. HCAP vs ASP PNA w/bilateral pleural effusions and opacification ILD, pulm edema / ATX 4. Multiple chronic wounds * Wound Cx: [place] => ACBA, VRE, KP-ESBL, PSAR * Sacral coccygeal osteomyelitis, status post debridement. 5. G-tube site cellulitis. 6. Nontoxic megacolon. 7. Resolving right upper back rash, remains on empiric acyclovir. 8. Failure to thrive. 9. Endstage renal disease. 10. Acute on chronic encephalopathy. 11. Bilateral sinus disease (- )MRSA ABX ALLERGIES: None to ABX INVASIVES: : Trach, PEG,R- Perm-A-Cath, RUEXT-PICC CURRENT ABX: DAY # =>Daptomycin, Colistin IV => Continued for Osteomyelitis s/p Diflucan, Merrem-> DC'd ID RECOMMENDATIONS/PLAN: 1. Patient remains on continued lengthy course of IV ABX for sacral osteomyelitis 2. Continue current ABX -> ID colleague to clarify anticipated DC ABX date . . Problems: Consultation Date/Type/Reason Admit Date/Time Sep 27, 2017 at 21:00 Initial Consult Date 10/05/17 Type of Consultation: ID Referring Provider: PHILIPPE JURAES DO Exam/Review of Systems Vital Signs Vitals Vital Signs Date Time Temp Pulse Resp B/P Pulse Ox O2 Delivery O2 Flow Rate FiO2 10/13/17 13:35 55 12 100 40 10/13/17 11:43 97.5 92/51 Intake and Output 10/12/17 10/12/17 10/13/17 14:59 22:59 06:59 Intake Total 500 ml 1100 ml Output Total 1500 ml Balance -1000 ml 1100 ml Results Result Diagram: 10/13/17 0746 10/13/17 0746 Results 24 hrs Laboratory Tests Test 10/12/17 17:20 10/13/17 00:31 10/13/17 05:38 10/13/17 07:46 Bedside Glucose 152 144 151 White Blood Count 14.0 H Red Blood Count 2.76 L Hemoglobin 8.8 L Hematocrit 27.8 L Mean Corpuscular Volume 100.7 Mean Corpuscular Hemoglobin 31.9 Mean Corpuscular Hemoglobin Concent 31.7 L Red Cell Distribution Width 21.7 H Platelet Count 43 #L Mean Platelet Volume Neutrophils % 88.5 H Segmented Neutrophils % (Manual) 85 H Band Neutrophils % (Manual) 1 Lymphocytes % 2.7 L Lymphocytes % (Manual) 1 L Monocytes % 6.1 Monocytes % (Manual) 7 Eosinophils % 0.1 Basophils % 0.1 Myelocytes % (Manual) 3 H Promyelocytes % (Manual) 3 H Nucleated Red Blood Cells % 2 H Neutrophils # 12.4 H Neutrophils # (Manual) 11.9 H Band Neutrophils # 0.1 Absolute Lymphocytes (Manual) 0.1 L Lymphocytes # 0.4 L Monocytes # 0.9 Absolute Monocytes (Manual) 0.9 Eosinophils # 0.0 Basophils # 0.0 Myelocytes # 0.4 H Promyelocytes # 0.4 H Nucleated Red Blood Cells # 0.2 H Platelet Estimate SIG DECREASED Polychromasia 3+ Hypochromasia 2+ Poikilocytosis 1+ Anisocytosis 3+ Macrocytosis 3+ Sodium Level 135 Potassium Level 5.1 Chloride Level 98 Carbon Dioxide Level 27 Anion Gap 15 Blood Urea Nitrogen 72 H Creatinine 1.65 H Glucose Level 116 Calcium Level 8.0 L Phosphorus Level 4.7 Magnesium Level 2.8 H Creatine Kinase < 20 L Test 10/13/17 11:41 Bedside Glucose 145 Medications Medications Current Medications Hydromorphone HCl (Dilaudid) 0.5 mg Q4H PRN IV PAIN Last administered on 17:00; Admin Dose 0.5 MG; Start 09/27/17 at 23:00 Midodrine (Proamatine) 10 mg TID@, GTB Last administered on 10/13/17 13:35; Admin Dose 10 MG; Start 09/28/17 at 09:00 Ascorbic Acid (Vitamin C) 500 mg DAILY GTB Last administered on 10/13/17 09: 01; Admin Dose 500 MG; Start 09/28/17 at 09:00 Cholecalciferol (Vitamin D) 2,000 unit DAILY GTB Last administered on 09:00; Admin Dose 2,000 UNIT; Start 09/28/17 at 09:00 Ferrous Sulfate (Feosol Liquid Cup) 300 mg DAILY GTB Last administered on 10/13 09:00; Admin Dose 300 MG; Start 09/28/17 at 09:00 Folic Acid (Folic Acid) 1 mg DAILY GTB Last administered on 10/13/17 09:01; Admin Dose 1 MG; Start 09/28/17 at 09:00 Acetaminophen/ Hydrocodone Bitart ([place] (5/325)) 1 tab DAILY GTB Last administered on 09/30/17 09:34; Admin Dose 1 TAB; Start 09/28/17 at 09:00; Status Future Hold Lactobacillus Acidophilus/ Rhamnosus (Culturelle) 1 cap BID GTB Last administered on 10/13/17 09:00; Admin Dose 1 CAP; Start 09/28/17 at 09:00 Sertraline HCl (Zoloft) 25 mg QHS GTB Last administered on 10/12/17 22:34; Admin Dose 25 MG; Start 09/28/17 at 21:00 Tramadol HCl (Ultram) 50 mg DAILY PRN GTB FOR WOUND CARE; Start 09/28/17 at 08 :00; Status Future Hold Tramadol HCl (Ultram) 50 mg Q8 GTB Last administered on 10/13/17 13:36; Admin Dose 50 MG; Start 09/28/17 at 14:00 Zolpidem Tartrate (Ambien) 5 mg QHS PRN GTB INSOMNIA; Start 09/28/17 at 08:00 Diagnostic Test (Pha) 1 ea 1 ea 02 XX Last administered on 10/08/17 01:31; Admin Dose 1 EA; Start 09/29/17 at 02:00 Dextrose/Sodium Chloride (D5-NS) 1,000 ml @ 20 mls/hr Q24H IV Last administered on 10/10/17 21:28; Admin Dose 20 MLS/HR; Start 09/28/17 at 19:00 Collagenase (Santyl) 1 applic DAILY TOP Last administered on 10/12/17 13:29; Admin Dose 1 APPLIC; Start 09/29/17 at 12:00 Docusate Sodium (Colace Liquid Cup) 100 mg BID GTB Last administered on 09:00; Admin Dose 100 MG; Start 09/30/17 at 21:00 Multivitamins/ Minerals (Theragran-M) 1 tab DAILY GTB Last administered on 09:01; Admin Dose 1 TAB; Start 09/30/17 at 10:00 Lansoprazole (Prevacid) 30 mg DAILY@06 GTB Last administered on 10/13/17 05: 42; Admin Dose 30 MG; Start 09/30/17 at 12:15 Hydrogen Peroxide (Hydrogen Peroxide) 1 applic BID TOP Last administered on 22:33; Admin Dose 1 APPLIC; Start 09/30/17 at 21:00 Heparin Sodium (Porcine) (Heparin (5000 Units/0.5 ml)) 5,000 unit BID SC Last administered on 10/13/17 09:02; Admin Dose 5,000 UNIT; Start 10/01/17 at 21: 00 Brimonidine Tartrate ([place] P 0.1%) 1 drop BID BOTH EYES Last administered on 10/13/17 08:59; Admin Dose 1 DROP; Start 10/03/17 at 21:00 Silver Sulfadiazine 1 applic 1 applic DAILY TOP Last administered on 09:03; Admin Dose 1 APPLIC; Start 10/05/17 at 11:00 Daptomycin 290 mg/ Sodium Chloride 100 ml @ 200 mls/hr Q48H IVPB Last administered on 10/12/17 17:22; Admin Dose 200 MLS/HR; Start 10/08/17 at 18: 00 Colistimethate Sodium/Sodium Chloride (Coly-Mycin/NS) 100 ml @ 200 mls/hr Q24H IVPB Last administered on 10/12/17 15:53; Admin Dose 200 MLS/HR; Start 10/08 at 15:00 [facility] This patient reyes... PRN PRN XX WOUND CARE; Start 10/08/17 at 14:00 Hydrocortisone (Solu-Cortef) 25 mg Q8 IV Last administered on 10/13/17 13:37 ; Admin Dose 25 MG; Start 10/10/17 at 14:00 Insulin Aspart (Novolog Insulin Pen) NOVOLOG *MILD* ALGORITHM Q6 SC Last administered on 10/13/17 11:43; Admin Dose 1 UNIT; Start 10/12/17 at 12:00 NURYS FLOREZ NP Oct 13, 2017 15:37
--- NOTE | 2017-10-13 16:04 | CONS ---
Date/Time of Note Date/Time of Note DATE: 10/13/17 TIME: 16:03 Assessment/Plan Assessment/Plan Additional Assessment/Plan IMPRESSION: 1. Status post aneurysm repair. 2. Septic shock. 3. Encephalopathy. CT scan of the brain no acute pathology, patient is still semi-comatose 4. Respiratory failure. 5. G-tube. Recent is tolerating feeding 6. End-stage renal disease for which he is on dialysis. 7. Atrial fibrillation. 8. Anemia. 9. Nontoxic megacolon. Better 10. DVT status post IVC filter. PLAN: Continue all supportive care Continue dialysis on vent support Antibiotic as per ID Campbell flush as needed for abdominal distention Discussed with the who is by the side of the patient Consultation Date/Type/Reason Admit Date/Time Sep 27, 2017 at 21:00 Initial Consult Date 09/28/17 Type of Consultation: ID Referring Provider: PHILIPPE JUARES DO 24 HR Interval Summary Subjective hx not possible: pt non-verbal Exam/Review of Systems Vital Signs Vitals Vital Signs Date Time Temp Pulse Resp B/P Pulse Ox O2 Delivery O2 Flow Rate FiO2 10/13/17 13:35 55 12 100 40 10/13/17 11:43 97.5 92/51 Intake and Output 10/12/17 10/12/17 10/13/17 14:59 22:59 06:59 Intake Total 500 ml 1100 ml Output Total 1500 ml Balance -1000 ml 1100 ml Exam Constitutional: alert, oriented, well developed Psych: nl mood/affect, no complaints Head: atraumatic, normocephalic Eyes: EOMI, PERRL, nl conjunctiva, nl lids, nl sclera ENMT: nl external ears & nose, nl lips & teeth, nl nasal mucosa & septum Neck: non-tender, supple Respiratory: clear to auscultation, normal air movement Cardiovascular: nl pulses, regular rate and rhythm Gastrointestinal: nl liver, spleen, non-tender, soft Musculoskeletal: nl extremities to inspection, nl gait and stance Extremities: normal pulses Neurological: [employer] II-XII intact, nl mental status, nl speech, nl strength Skin: nl turgor, No rash or lesions Lymph: nl lymph nodes Results Result Diagram: 10/13/17 0746 10/13/17 0746 Results 24 hrs Laboratory Tests Test 10/12/17 17:20 10/13/17 00:31 10/13/17 05:38 10/13/17 07:46 Bedside Glucose 152 144 151 White Blood Count 14.0 H Red Blood Count 2.76 L Hemoglobin 8.8 L Hematocrit 27.8 L Mean Corpuscular Volume 100.7 Mean Corpuscular Hemoglobin 31.9 Mean Corpuscular Hemoglobin Concent 31.7 L Red Cell Distribution Width 21.7 H Platelet Count 43 #L Mean Platelet Volume Neutrophils % 88.5 H Segmented Neutrophils % (Manual) 85 H Band Neutrophils % (Manual) 1 Lymphocytes % 2.7 L Lymphocytes % (Manual) 1 L Monocytes % 6.1 Monocytes % (Manual) 7 Eosinophils % 0.1 Basophils % 0.1 Myelocytes % (Manual) 3 H Promyelocytes % (Manual) 3 H Nucleated Red Blood Cells % 2 H Neutrophils # 12.4 H Neutrophils # (Manual) 11.9 H Band Neutrophils # 0.1 Absolute Lymphocytes (Manual) 0.1 L Lymphocytes # 0.4 L Monocytes # 0.9 Absolute Monocytes (Manual) 0.9 Eosinophils # 0.0 Basophils # 0.0 Myelocytes # 0.4 H Promyelocytes # 0.4 H Nucleated Red Blood Cells # 0.2 H Platelet Estimate SIG DECREASED Polychromasia 3+ Hypochromasia 2+ Poikilocytosis 1+ Anisocytosis 3+ Macrocytosis 3+ Sodium Level 135 Potassium Level 5.1 Chloride Level 98 Carbon Dioxide Level 27 Anion Gap 15 Blood Urea Nitrogen 72 H Creatinine 1.65 H Glucose Level 116 Calcium Level 8.0 L Phosphorus Level 4.7 Magnesium Level 2.8 H Creatine Kinase < 20 L Test 10/13/17 11:41 Bedside Glucose 145 Medications Medications Current Medications Hydromorphone HCl (Dilaudid) 0.5 mg Q4H PRN IV PAIN Last administered on 17:00; Admin Dose 0.5 MG; Start 09/27/17 at 23:00 Midodrine (Proamatine) 10 mg TID@, GTB Last administered on 10/13/17 13:35; Admin Dose 10 MG; Start 09/28/17 at 09:00 Ascorbic Acid (Vitamin C) 500 mg DAILY GTB Last administered on 10/13/17 09: 01; Admin Dose 500 MG; Start 09/28/17 at 09:00 Cholecalciferol (Vitamin D) 2,000 unit DAILY GTB Last administered on 09:00; Admin Dose 2,000 UNIT; Start 09/28/17 at 09:00 Ferrous Sulfate (Feosol Liquid Cup) 300 mg DAILY GTB Last administered on 10/13 09:00; Admin Dose 300 MG; Start 09/28/17 at 09:00 Folic Acid (Folic Acid) 1 mg DAILY GTB Last administered on 10/13/17 09:01; Admin Dose 1 MG; Start 09/28/17 at 09:00 Acetaminophen/ Hydrocodone Bitart ([place] (5/325)) 1 tab DAILY GTB Last administered on 09/30/17 09:34; Admin Dose 1 TAB; Start 09/28/17 at 09:00; Status Future Hold Lactobacillus Acidophilus/ Rhamnosus (Culturelle) 1 cap BID GTB Last administered on 10/13/17 09:00; Admin Dose 1 CAP; Start 09/28/17 at 09:00 Sertraline HCl (Zoloft) 25 mg QHS GTB Last administered on 10/12/17 22:34; Admin Dose 25 MG; Start 09/28/17 at 21:00 Tramadol HCl (Ultram) 50 mg DAILY PRN GTB FOR WOUND CARE; Start 09/28/17 at 08 :00; Status Future Hold Tramadol HCl (Ultram) 50 mg Q8 GTB Last administered on 10/13/17 13:36; Admin Dose 50 MG; Start 09/28/17 at 14:00 Zolpidem Tartrate (Ambien) 5 mg QHS PRN GTB INSOMNIA; Start 09/28/17 at 08:00 Diagnostic Test (Pha) 1 ea 1 ea 02 XX Last administered on 10/08/17 01:31; Admin Dose 1 EA; Start 09/29/17 at 02:00 Dextrose/Sodium Chloride (D5-NS) 1,000 ml @ 20 mls/hr Q24H IV Last administered on 10/10/17 21:28; Admin Dose 20 MLS/HR; Start 09/28/17 at 19:00 Collagenase (Santyl) 1 applic DAILY TOP Last administered on 10/12/17 13:29; Admin Dose 1 APPLIC; Start 09/29/17 at 12:00 Docusate Sodium (Colace Liquid Cup) 100 mg BID GTB Last administered on 09:00; Admin Dose 100 MG; Start 09/30/17 at 21:00 Multivitamins/ Minerals (Theragran-M) 1 tab DAILY GTB Last administered on 09:01; Admin Dose 1 TAB; Start 09/30/17 at 10:00 Lansoprazole (Prevacid) 30 mg DAILY@06 GTB Last administered on 10/13/17 05: 42; Admin Dose 30 MG; Start 09/30/17 at 12:15 Hydrogen Peroxide (Hydrogen Peroxide) 1 applic BID TOP Last administered on 22:33; Admin Dose 1 APPLIC; Start 09/30/17 at 21:00 Heparin Sodium (Porcine) (Heparin (5000 Units/0.5 ml)) 5,000 unit BID SC Last administered on 10/13/17 09:02; Admin Dose 5,000 UNIT; Start 10/01/17 at 21: 00 Brimonidine Tartrate (Alphagan P 0.1%) 1 drop BID BOTH EYES Last administered on 10/13/17 08:59; Admin Dose 1 DROP; Start 10/03/17 at 21:00 Silver Sulfadiazine 1 applic 1 applic DAILY TOP Last administered on 09:03; Admin Dose 1 APPLIC; Start 10/05/17 at 11:00 Daptomycin 290 mg/ Sodium Chloride 100 ml @ 200 mls/hr Q48H IVPB Last administered on 10/12/17 17:22; Admin Dose 200 MLS/HR; Start 10/08/17 at 18: 00 Colistimethate Sodium/Sodium Chloride (Coly-Mycin/NS) 100 ml @ 200 mls/hr Q24H IVPB Last administered on 10/12/17 15:53; Admin Dose 200 MLS/HR; Start 10/08 at 15:00 [facility] This patient reyes... PRN PRN XX WOUND CARE; Start 10/08/17 at 14:00 Hydrocortisone (Solu-Cortef) 25 mg Q8 IV Last administered on 10/13/17 13:37 ; Admin Dose 25 MG; Start 10/10/17 at 14:00 Insulin Aspart (Novolog Insulin Pen) NOVOLOG *MILD* ALGORITHM Q6 SC Last administered on 10/13/17t 11:43; Admin Dose 1 UNIT; Start 10/12/17 at 12:00 LIANNA BOWLING MD Oct 13, 2017 16:04
[2017-10-13] MEDS: COLISTIMETHATE 75 MG in SOD CHLORIDE 0.9% 100 ML IVPB SCH (17:20)
--- NOTE | 2017-10-13 17:45 | PN ---
Date/Time of Note Date/Time of Note DATE: 10/12/17 TIME: 17:44 Assessment/Plan Lines/Catheters IV Catheter Type (from [facility]): PERM CATH. Pathak in Place (from [facility]): No Assessment/Plan Chief Complaint/Hosp Course 1. Hypotension, sepsis. Weaned off pressors -supportive -judicious fluids -consider hospice/comfort measures - d/w 2. Sacral & left trochanter pressure ulcers: -debridement prn -local care -frequent turning and off-loading -low air loss mattress -vitamin c -short term zinc -optimize nutrition 3. 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 End-stage renal disease -HD per renal -avoid/limit nephrotoxic meds -judicious fluids -renally dose meds 5. Anemia: no acute bleed noted -closely monitor surgical site -transfuse as needed 6. Atrial fibrillation -rate control -lyte optimization -cards optimization 7. Dysphagia with feeding tube: on tube feeds -cont tf with aspiration precautions 8. Leukocytosis: afebrile -monitor -further workup if persistent 9. Thrombocytosis -supportive 10. Hypoalbuminemia: likely multifactorial -optimize nutrition -medical management of inflammation/infection 11. Electrolyte imbalance -optimize lytes and monitor 12. Ventilator dependent respiratory failure -per pulm -pulm toilet -respiratory treatments Thank you, Late entry 10/12 Problems: Subjective 24 Hr Interval Summary HD. Leukocytosis. No fevers, congested cough, v/d. Non responsive. No cough. No sz. No rashes. No bloating. No jt swelling. Wounds. Exam/Review of Systems Vital Signs Vitals Vital Signs Date Time Temp Pulse Resp B/P Pulse Ox O2 Delivery O2 Flow Rate FiO2 10/13/17 16:45 61 10/13/17 15:25 12 100 40 10/13/17 11:43 97.5 92/51 Intake and Output 10/12/17 10/12/17 10/13/17 15:00 23:00 07:00 Intake Total 500 ml 1100 ml Output Total 1500 ml Balance -1000 ml 1100 ml Exam Free Text/Dictation Constitutional: Not following commands, ventilated Psych: lethargic, non responsive Head: atraumatic, normocephalic Eyes: nl lids, nl sclera ENMT: mucosa pink and moist, nl nasal mucosa & septum Neck: non-tender, other (trach-vent), supple Respiratory: diminished breath sounds, No labored breathing Cardiovascular: irregular rhythm, other (afib) Gastrointestinal: non-tender, other (peg), soft Genitourinary - Male: nl penis, nl scrotum Musculoskeletal: nl extremities to inspection, swelling improved Extremities: cap refill 2 s Neurological: No nl speech, No nl strength (gen weakness) Skin: Femoral incision with dressing, sacral and left troch pressure ulcers Lymph: No nl lymph nodes Results Result Diagram: 10/13/17 0746 10/13/17 0746 CORA MATAMOROS MD Oct 13, 2017 17:45
--- NOTE | 2017-10-13 17:45 | PN ---
Date/Time of Note Date/Time of Note DATE: 10/13/17 TIME: 17:45 Assessment/Plan Lines/Catheters IV Catheter Type (from [facility]): PERM CATH. Pathak in Place (from [facility]): No Assessment/Plan Chief Complaint/Hosp Course 1. Hypotension, sepsis. Weaned off pressors -supportive -judicious fluids -consider hospice/comfort measures - d/w 2. Sacral & left trochanter pressure ulcers: -debridement prn -local care -frequent turning and off-loading -low air loss mattress -vitamin c -short term zinc -optimize nutrition 3. 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 End-stage renal disease -HD per renal -avoid/limit nephrotoxic meds -judicious fluids -renally dose meds 5. Anemia: no acute bleed noted -closely monitor surgical site -transfuse as needed 6. Atrial fibrillation -rate control -lyte optimization -cards optimization 7. Dysphagia with feeding tube: on tube feeds -cont tf with aspiration precautions 8. Leukocytosis: afebrile -monitor -further workup if persistent 9. Thrombocytosis -supportive 10. Hypoalbuminemia: likely multifactorial -optimize nutrition -medical management of inflammation/infection 11. Electrolyte imbalance -optimize lytes and monitor 12. Ventilator dependent respiratory failure -per pulm -pulm toilet -respiratory treatments Thank you, Problems: Subjective 24 Hr Interval Summary HD. Leukocytosis. No fevers, congested cough, v/d. Non responsive. No cough. No sz. No rashes. No bloating. No jt swelling. Wounds. Exam/Review of Systems Vital Signs Vitals Vital Signs Date Time Temp Pulse Resp B/P Pulse Ox O2 Delivery O2 Flow Rate FiO2 10/13/17 16:45 61 10/13/17 15:25 12 100 40 10/13/17 11:43 97.5 92/51 Intake and Output 10/12/17 10/12/17 10/13/17 15:00 23:00 07:00 Intake Total 500 ml 1100 ml Output Total 1500 ml Balance -1000 ml 1100 ml Exam Free Text/Dictation Constitutional: Not following commands, ventilated Psych: lethargic, non responsive Head: atraumatic, normocephalic Eyes: nl lids, nl sclera ENMT: mucosa pink and moist, nl nasal mucosa & septum Neck: non-tender, other (trach-vent), supple Respiratory: diminished breath sounds, No labored breathing Cardiovascular: irregular rhythm, other (afib) Gastrointestinal: non-tender, other (peg), soft Genitourinary - Male: nl penis, nl scrotum Musculoskeletal: nl extremities to inspection, swelling improved Extremities: cap refill 2 s Neurological: No nl speech, No nl strength (gen weakness) Skin: Femoral incision with dressing, sacral and left troch pressure ulcers Lymph: No nl lymph nodes Results Result Diagram: 10/13/17 0746 10/13/17 0746 CORA MATAMOROS MD Oct 13, 2017 17:45
[2017-10-13] MEDS: DEXTROSE 5%-0.9% NACL 1,000 ML IV SCH (19:00)
[2017-10-13] MEDS: SERTRALINE 50 MG TAB GTB SCH (21:48)
[2017-10-14] VITALS (36 sets, daily range): BP systolic 85–114; BP diastolic 40–69; PULSE 30–82; RESP 12–21
[2017-10-14] MEDS: ACCU-CHEK XX SCH (00:33)
[2017-10-14] MEDS: HYDROCORTISONE 100 MG INJ IV SCH ×3 (05:20→21:15)
[2017-10-14] MEDS: INSULIN ASPART [NOVOLOG] 3 ML PEN SC SCH ×4 (05:21→23:23)
[2017-10-14] MEDS: LANSOPRAZOLE 30 MG CAP GTB SCH (05:21)
[2017-10-14] MEDS: traMADol 50 MG TAB GTB SCH ×3 (05:21→21:15)
[2017-10-14 06:44] LABS: ABNORMAL IP MESSAGE 1; HEMATOCRIT 27.8 % (42.0-52.0); HEMOGLOBIN 8.9 g/dl (14.0-18.0); MEAN CORPUSCULAR HEMOGLOBIN 32.2 pg (29.0-33.0); MEAN CORPUSCULAR VOLUME 100.7 fl (82.0-101.0); NUCLEATED RED BLOOD CELLS% 1.8 /100WBC (0.0-0.0); POSITIVE DIFF @See below; RED BLOOD COUNT 2.76 10^6/ul (4.70-6.10); RED CELL DISTRIBUTION WIDTH 22.5 % (11.5-14.5); WHITE BLOOD COUNT 15.4 10^3/ul (4.8-10.8)
[2017-10-14 06:46] LABS: PLATELET COUNT 52 10^3/UL (140-415)
[2017-10-14 07:01] LABS: CALCIUM 8.6 mg/dl (8.4-10.2); CREATININE 1.92 mg/dl (0.61-1.24); MAGNESIUM 3.1 mg/dl (1.7-2.5); PHOSPHORUS 5.4 mg/dl (2.5-4.9)
[2017-10-14 07:18] LABS: POTASSIUM 5.8 mmol/L (3.5-5.1)
[2017-10-14 08:47] LABS: ANISOCYTOSIS 3+ (0-0); ERYTHROBLAST% (NRBC) (M) 1 % (0-0); GIANT THROMBO% (M) 4 % (0-0); HYPOCHROMASIA 1+ (0-0); METAMYELOCYTES %M 1 % (0-0); MONOCYTES % (M) 9 % (0-11); MYELOCYTES % (M) 1 % (0-0); PLATELET ESTIMATE SIG DECREASED; POIKILOCYTOSIS 1+ (0-0); POLYCHROMASIA 3+ (0-0)
[2017-10-14] MEDS: COLLAGENASE 30 GM TUBE TOP SCH (09:00)
[2017-10-14] MEDS: HYDROGEN PEROXIDE 118 ML TOP SCH ×2 (09:00→21:16)
[2017-10-14] MEDS: BRIMONIDINE 0.1% 5 ML OPH BOTH EYES SCH ×2 (09:06→21:13)
[2017-10-14] MEDS: CHOLECALCIFEROL 2,000 UNIT CAP GTB SCH (09:07)
[2017-10-14] MEDS: FERROUS SULFATE 60 MG/ML 5ML CUP GTB SCH (09:07)
[2017-10-14] MEDS: DOCUSATE SODIUM 10 MG/ML (10ML CUP) GTB SCH ×2 (09:07→21:14)
[2017-10-14] MEDS: ASCORBIC ACID 500 MG TAB GTB SCH (09:07)
[2017-10-14] MEDS: LACTOBACILLUS RHAMNOSUS CAP GTB SCH ×2 (09:07→21:14)
[2017-10-14] MEDS: MIDODRINE 5 MG TAB GTB SCH ×3 (09:07→17:32)
[2017-10-14] MEDS: MULTIVITAMINS/MINERALS TAB GTB SCH (09:07)
[2017-10-14] MEDS: FOLIC ACID 1 MG TAB GTB SCH (09:07)
[2017-10-14] MEDS: HEPARIN 5,000 UNIT/0.5 ML VIAL SC SCH ×2 (09:12→21:17)
[2017-10-14] MEDS: SILVER SULFADIAZINE 1% 25 GM CR TOP SCH (09:15)
--- NOTE | 2017-10-14 09:33 | PN ---
Date/Time of Note Date/Time of Note DATE: 10/14/17 TIME: 09:33 Assessment/Plan VTE Prophylaxis VTE Prophylaxis Intervention: SCD's Lines/Catheters IV [facility] Permacath Urinary Cath still in place: No Assessment/Plan Assessment/Plan 1. S/P septic SHOCK: 2. Afib: persistent/ chronic now. 3. hypoxemic resp failure: s/p trach vent dependent now. 4. hx anemia and GI bleed: off of any anticoagulation 5. 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 s/p multiple infections 8. dysphagia: s/p PEG 9. encephalopathy: 10. fluid overload/ CHF/ anasarca: ACUTE on chronic due to fluid overload and diastolic failure. 11. Ventricular arrhythmia and PVC/ VT and even torsades: not a good candidate for amiodarone due to prolonged QT and episodes of torsades and bradycardia now . Recommendations: Vent support will be continued for now. Hemodialysis will be managed by nephrology team .correction of electrolytes with assistance of HD cont Heart rate control Transfusion prn has been given. Patient currently off of full anticoagulation due to concern about history of severe anemia as well as GI bleed and OB positive stool. prognosis is poor code is DNR now Subjective 24 Hr Interval Summary Free Text/Dictation The patient on HD today Exam/Review of Systems Vital Signs Vitals Vital Signs Date Time Temp Pulse Resp B/P Pulse Ox O2 Delivery O2 Flow Rate FiO2 10/14/17 09:15 55 10/14/17 08:32 97.4 19 96/40 99 10/14/17 05:37 40 Intake and Output 10/13/17 10/13/17 10/14/17 14:59 22:59 06:59 Intake Total 1000 ml 650 ml Balance 1000 ml 650 ml Results Result Diagram: 10/14/17 0614 10/14/17 0613 Results 24 hrs Laboratory Tests Test 10/13/17 11:41 10/13/17 17:18 10/13/17 23:30 10/14/17 05:18 Bedside Glucose 145 152 135 128 Test 10/14/17 06:13 10/14/17 06:14 Sodium Level 136 Potassium Level 5.8 H Chloride Level 98 Carbon Dioxide Level 31 Anion Gap 13 Blood Urea Nitrogen 85 H Creatinine 1.92 H Glucose Level 110 Calcium Level 8.6 Phosphorus Level 5.4 H Magnesium Level 3.1 H White Blood Count 15.4 H Red Blood Count 2.76 L Hemoglobin 8.9 L Hematocrit 27.8 L Mean Corpuscular Volume 100.7 Mean Corpuscular Hemoglobin 32.2 Mean Corpuscular Hemoglobin Concent 32.0 Red Cell Distribution Width 22.5 H Platelet Count 52 #L Mean Platelet Volume Neutrophils % Segmented Neutrophils % (Manual) 85 H Band Neutrophils % (Manual) 2 Lymphocytes % Lymphocytes % (Manual) 3 L Monocytes % Monocytes % (Manual) 9 Eosinophils % Basophils % Metamyelocytes % (manual) 1 H Myelocytes % (Manual) 1 H Nucleated Red Blood Cells % 1 H Neutrophils # Neutrophils # (Manual) 13.1 H Band Neutrophils # 0.3 Absolute Lymphocytes (Manual) 0.4 L Lymphocytes # Monocytes # Absolute Monocytes (Manual) 1.3 H Eosinophils # Basophils # Metamyelocytes # 0.1 H Myelocytes # 0.1 H Nucleated Red Blood Cells # Platelet Estimate SIG DECREASED Giant Platelets 4 H Polychromasia 3+ Hypochromasia 1+ Poikilocytosis 1+ Anisocytosis 3+ Macrocytosis 3+ Medications Medications Current Medications Hydromorphone HCl (Dilaudid) 0.5 mg Q4H PRN IV PAIN Last administered on 17:00; Admin Dose 0.5 MG; Start 09/27/17 at 23:00 Midodrine (Proamatine) 10 mg TID@ GTB Last administered on 10/14/17 09:07; Admin Dose 10 MG; Start 09/28/17 at 09:00 Ascorbic Acid (Vitamin C) 500 mg DAILY GTB Last administered on 10/14/17 09: 07; Admin Dose 500 MG; Start 09/28/17 at 09:00 Cholecalciferol (Vitamin D) 2,000 unit DAILY GTB Last administered on 09:07; Admin Dose 2,000 UNIT; Start 09/28/17 at 09:00 Ferrous Sulfate (Feosol Liquid Cup) 300 mg DAILY GTB Last administered on 10/14 09:07; Admin Dose 300 MG; Start 09/28/17 at 09:00 Folic Acid (Folic Acid) 1 mg DAILY GTB Last administered on 10/14/17 09:07; Admin Dose 1 MG; Start 09/28/17 at 09:00 Acetaminophen/ Hydrocodone Bitart ([place] (5/325)) 1 tab DAILY GTB Last administered on 09/30/17 09:34; Admin Dose 1 TAB; Start 09/28/17 at 09:00; Status Future Hold Lactobacillus Acidophilus/ Rhamnosus (Culturelle) 1 cap BID GTB Last administered on 10/14/17 09:07; Admin Dose 1 CAP; Start 09/28/17 at 09:00 Sertraline HCl (Zoloft) 25 mg QHS GTB Last administered on 10/13/17 21:48; Admin Dose 25 MG; Start 09/28/17 at 21:00 Tramadol HCl (Ultram) 50 mg DAILY PRN GTB FOR WOUND CARE; Start 09/28/17 at 08 :00; Status Future Hold Tramadol HCl (Ultram) 50 mg Q8 GTB Last administered on 10/14/17 05:21; Admin Dose 50 MG; Start 09/28/17 at 14:00 Zolpidem Tartrate (Ambien) 5 mg QHS PRN GTB INSOMNIA; Start 09/28/17 at 08:00 Diagnostic Test (Pha) 1 ea 1 ea 02 XX Last administered on 10/08/17 01:31; Admin Dose 1 EA; Start 09/29/17 at 02:00 Dextrose/Sodium Chloride (D5-NS) 1,000 ml @ 20 mls/hr Q24H IV Last administered on 10/10/17 21:28; Admin Dose 20 MLS/HR; Start 09/28/17 at 19:00 Collagenase (Santyl) 1 applic DAILY TOP Last administered on 10/12/17 13:29; Admin Dose 1 APPLIC; Start 09/29/17 at 12:00 Docusate Sodium (Colace Liquid Cup) 100 mg BID GTB Last administered on 09:07; Admin Dose 100 MG; Start 09/30/17 at 21:00 Multivitamins/ Minerals (Theragran-M) 1 tab DAILY GTB Last administered on 09:07; Admin Dose 1 TAB; Start 09/30/17 at 10:00 Lansoprazole (Prevacid) 30 mg DAILY@06 GTB Last administered on 10/14/17 05: 21; Admin Dose 30 MG; Start 09/30/17 at 12:15 Hydrogen Peroxide (Hydrogen Peroxide) 1 applic BID TOP Last administered on 21:49; Admin Dose 1 APPLIC; Start 09/30/17 at 21:00 Heparin Sodium (Porcine) (Heparin (5000 Units/0.5 ml)) 5,000 unit BID SC Last administered on 10/14/17 09:12; Admin Dose 5,000 UNIT; Start 10/01/17 at 21: 00 Brimonidine Tartrate (Alphagan P 0.1%) 1 drop BID BOTH EYES Last administered on 10/14/17 09:06; Admin Dose 1 DROP; Start 10/03/17 at 21:00 Silver Sulfadiazine 1 applic 1 applic DAILY TOP Last administered on 09:15; Admin Dose 1 APPLIC; Start 10/05/17 at 11:00 Daptomycin 290 mg/ Sodium Chloride 100 ml @ 200 mls/hr Q48H IVPB Last administered on 10/12/17 17:22; Admin Dose 200 MLS/HR; Start 10/08/17 at 18: 00 Colistimethate Sodium/Sodium Chloride (Coly-Mycin/NS) 100 ml @ 200 mls/hr Q24H IVPB Last administered on 10/13/17 17:20; Admin Dose 200 MLS/HR; Start 10/08 at 15:00 Miscellaneous Information (Pending [facility] Order For Wound Care) This patient reyes... PRN PRN XX WOUND CARE; Start 10/08/17 at 14:00 Hydrocortisone (Solu-Cortef) 25 mg Q8 IV Last administered on 10/14/17 05:20 ; Admin Dose 25 MG; Start 10/10/17 at 14:00 Insulin Aspart (Novolog Insulin Pen) NOVOLOG *MILD* ALGORITHM Q6 SC Last administered on 10/13/17 17:22; Admin Dose 1 UNIT; Start 10/12/17 at 12:00 YASSINE WADDELL MD Oct 14, 2017 09:33
--- NOTE | 2017-10-14 10:17 | PN ---
DATE: 10/14/2017 10/14/2017 SUBJECTIVE: The patient remains obtunded. No events noted overnight. PHYSICAL EXAMINATION: OBJECTIVE: VITAL SIGNS: Blood pressure is 97/41, respirations 14, pulse 60, temperature 97.1. HEENT: Head is normocephalic. NECK: Supple. HEART: Regular rate. LUNGS: Show diminished breath sounds at base. ABDOMEN: Soft, nontender to palpation. No rebound or guarding. EXTREMITIES: Negative for clubbing, cyanosis, or edema. DERMATOLOGIC: No rashes. MUSCULOSKELETAL: No joint effusions. NEUROLOGIC: No change in exam. MEDICATIONS: The patient's medications have been reviewed. LABORATORY DATA: Shows sodium 136, potassium 5.8, BUN 85, creatinine 1.92, phosphorus 5.1. White c ount 15.4, hemoglobin 8.9, hematocrit 27.4, platelet count is 52. ASSESSMENT AND PLAN: 1. Sepsis, status post shock secondary to pneumonia. The patient is completing antibiotic course. 2. Sinus arrhythmia. Continue medical management. 3. Ventilator dependent respiratory failure. Vent settings and ABG is reviewed. Continue to monit or. Follow up with pulmonary. 4. Right pseudoaneurysm repair, status post surgical correction. 5. Acute encephalopathy on top of dementia. Etiology is toxic metabolic. No significant change in mental status. Continue to monitor. 6. End-stage renal disease. Plan for dialysis today. 7. Hypokalemia. We will dialyze on a low potassium bath. 8. Volume overload secondary to congestive heart failure, end-stage renal disease. Continue ultraf iltration with dialysis. 9. Mineral bone monitor calcium and phosphorus levels. 10. Dysphagia, status post percutaneous endoscopic gastrostomy. Continue tube feeding. 11. Decubitus wound. Continue wound care. 12. Thrombocytopenia. Continue to monitor. 13. Gastrointestinal and deep venous thrombosis prophylaxis. Dictated By: PHILIPPE WILSON/NORM Conf#: [id number] DID#: [id number]
[2017-10-14] MEDS ORDERED: GLUCOSE GEL 15 GRAM TUBE PO PRN ×2 (10:30)
[2017-10-14] MEDS ORDERED: GLUCAGON 1 MG INJ IM PRN (10:30)
[2017-10-14] MEDS ORDERED: DEXTROSE 50% 50 ML SYRINGE IV PRN ×2 (10:30)
[2017-10-14] MEDS ORDERED: GLUCOSE GEL 15 GRAM TUBE BUCCAL PRN (10:30)
[2017-10-14] MEDS: DEXTROSE 5%-0.9% NACL 1,000 ML IV SCH (12:03)
--- NOTE | 2017-10-14 12:13 | CONS ---
Date/Time of Note Date/Time of Note DATE: 10/14/17 TIME: 12:13 Consult Date/Type/Reason Admit Date/Time Sep 27, 2017 at 21:00 Initial Consult Date 09/28/17 Type of Consultation: Pulmonary Ordering Provider: PHILIPPE JUARES DO Subjective No changes. Remains obtunded. Objective Vital Signs Date Time Temp Pulse Resp B/P Pulse Ox O2 Delivery O2 Flow Rate FiO2 10/14/17 12:00 97.4 76 17 87/43 95 10/14/17 10:57 40 Intake and Output 10/13/17 10/13/17 10/14/17 14:59 22:59 06:59 Intake Total 1000 ml 650 ml Balance 1000 ml 650 ml Exam GENERAL: Elderly gentleman comfortable at rest on mechanical ventilation. VITAL SIGNS: per chart NECK: Supple. No JVD or lymphadenopathy. CARDIAC EXAM: S1, S2. No added sounds or murmurs. CHEST: clear bilaterally, No added sounds, rales or wheezes ABDOMEN: Soft, nontender. No guarding or rebound. EXTREMITIES: No cyanosis, clubbing or edema. NEUROLOGIC: Generalized weakness. No focal deficits. Results/Medications Result Diagram: 10/14/17 0614 10/14/17 0613 Results 24 hrs Laboratory Tests Test 10/13/17 17:18 10/13/17 23:30 10/14/17 05:18 10/14/17 06:13 Bedside Glucose 152 135 128 Sodium Level 136 Potassium Level 5.8 H Chloride Level 98 Carbon Dioxide Level 31 Anion Gap 13 Blood Urea Nitrogen 85 H Creatinine 1.92 H Glucose Level 110 Calcium Level 8.6 Phosphorus Level 5.4 H Magnesium Level 3.1 H Test 10/14/17 06:14 10/14/17 11:53 White Blood Count 15.4 H Red Blood Count 2.76 L Hemoglobin 8.9 L Hematocrit 27.8 L Mean Corpuscular Volume 100.7 Mean Corpuscular Hemoglobin 32.2 Mean Corpuscular Hemoglobin Concent 32.0 Red Cell Distribution Width 22.5 H Platelet Count 52 #L Mean Platelet Volume Neutrophils % Segmented Neutrophils % (Manual) 85 H Band Neutrophils % (Manual) 2 Lymphocytes % Lymphocytes % (Manual) 3 L Monocytes % Monocytes % (Manual) 9 Eosinophils % Basophils % Metamyelocytes % (manual) 1 H Myelocytes % (Manual) 1 H Nucleated Red Blood Cells % 1 H Neutrophils # Neutrophils # (Manual) 13.1 H Band Neutrophils # 0.3 Absolute Lymphocytes (Manual) 0.4 L Lymphocytes # Monocytes # Absolute Monocytes (Manual) 1.3 H Eosinophils # Basophils # Metamyelocytes # 0.1 H Myelocytes # 0.1 H Nucleated Red Blood Cells # Platelet Estimate SIG DECREASED Giant Platelets 4 H Polychromasia 3+ Hypochromasia 1+ Poikilocytosis 1+ Anisocytosis 3+ Macrocytosis 3+ Bedside Glucose 154 Medications Current Medications Hydromorphone HCl (Dilaudid) 0.5 mg Q4H PRN IV PAIN Last administered on 17:00; Admin Dose 0.5 MG; Start 09/27/17 at 23:00 Midodrine (Proamatine) 10 mg TID@ GTB Last administered on 10/14/17 09:07; Admin Dose 10 MG; Start 09/28/17 at 09:00 Ascorbic Acid (Vitamin C) 500 mg DAILY GTB Last administered on 10/14/17 09: 07; Admin Dose 500 MG; Start 09/28/17 at 09:00 Cholecalciferol (Vitamin D) 2,000 unit DAILY GTB Last administered on 09:07; Admin Dose 2,000 UNIT; Start 09/28/17 at 09:00 Ferrous Sulfate (Feosol Liquid Cup) 300 mg DAILY GTB Last administered on 10/14 09:07; Admin Dose 300 MG; Start 09/28/17 at 09:00 Folic Acid (Folic Acid) 1 mg DAILY GTB Last administered on 10/14/17 09:07; Admin Dose 1 MG; Start 09/28/17 at 09:00 Acetaminophen/ Hydrocodone Bitart ([place] (5/325)) 1 tab DAILY GTB Last administered on 09/30/17 09:34; Admin Dose 1 TAB; Start 09/28/17 at 09:00; Status Future Hold Lactobacillus Acidophilus/ Rhamnosus (Culturelle) 1 cap BID GTB Last administered on 10/14/17 09:07; Admin Dose 1 CAP; Start 09/28/17 at 09:00 Sertraline HCl (Zoloft) 25 mg QHS GTB Last administered on 10/13/17 21:48; Admin Dose 25 MG; Start 09/28/17 at 21:00 Tramadol HCl (Ultram) 50 mg DAILY PRN GTB FOR WOUND CARE; Start 09/28/17 at 08 :00; Status Future Hold Tramadol HCl (Ultram) 50 mg Q8 GTB Last administered on 10/14/17 05:21; Admin Dose 50 MG; Start 09/28/17 at 14:00 Zolpidem Tartrate (Ambien) 5 mg QHS PRN GTB INSOMNIA; Start 09/28/17 at 08:00 Diagnostic Test (Pha) 1 ea 1 ea 02 XX Last administered on 10/08/17 01:31; Admin Dose 1 EA; Start 09/29/17 at 02:00 Dextrose/Sodium Chloride (D5-NS) 1,000 ml @ 20 mls/hr Q24H IV Last administered on 10/14/17 12:03; Admin Dose 20 MLS/HR; Start 09/28/17 at 19:00 Collagenase (Santyl) 1 applic DAILY TOP Last administered on 10/12/17 13:29; Admin Dose 1 APPLIC; Start 09/29/17 at 12:00 Docusate Sodium (Colace Liquid Cup) 100 mg BID GTB Last administered on 09:07; Admin Dose 100 MG; Start 09/30/17 at 21:00 Multivitamins/ Minerals (Theragran-M) 1 tab DAILY GTB Last administered on 09:07; Admin Dose 1 TAB; Start 09/30/17 at 10:00 Lansoprazole (Prevacid) 30 mg DAILY@06 GTB Last administered on 10/14/17 05: 21; Admin Dose 30 MG; Start 09/30/17 at 12:15 Hydrogen Peroxide (Hydrogen Peroxide) 1 applic BID TOP Last administered on 21:49; Admin Dose 1 APPLIC; Start 09/30/17 at 21:00 Heparin Sodium (Porcine) (Heparin (5000 Units/0.5 ml)) 5,000 unit BID SC Last administered on 10/14/17 09:12; Admin Dose 5,000 UNIT; Start 10/01/17 at 21: 00 Brimonidine Tartrate (Alphagan P 0.1%) 1 drop BID BOTH EYES Last administered on 10/14/17 09:06; Admin Dose 1 DROP; Start 10/03/17 at 21:00 Silver Sulfadiazine 1 applic 1 applic DAILY TOP Last administered on 09:15; Admin Dose 1 APPLIC; Start 10/05/17 at 11:00 Daptomycin 290 mg/ Sodium Chloride 100 ml @ 200 mls/hr Q48H IVPB Last administered on 10/12/17 17:22; Admin Dose 200 MLS/HR; Start 10/08/17 at 18: 00 Colistimethate Sodium/Sodium Chloride (Coly-Mycin/NS) 100 ml @ 200 mls/hr Q24H IVPB Last administered on 10/13/17 17:20; Admin Dose 200 MLS/HR; Start 10/08 at 15:00 Miscellaneous Information (Pending [facility] Order For Wound Care) This patient reyes... PRN PRN XX WOUND CARE; Start 10/08/17 at 14:00 Hydrocortisone (Solu-Cortef) 25 mg Q8 IV Last administered on 10/14/17 05:20 ; Admin Dose 25 MG; Start 10/10/17 at 14:00 Insulin Aspart (Novolog Insulin Pen) NOVOLOG *MILD* ALGORITHM Q6 SC Last administered on 10/14/17 11:57; Admin Dose 1 UNIT; Start 10/12/17 at 12:00 Miscellaneous Information 1 ea NOTE XX ; Start 10/14/17 at 10:30 Glucose (Glutose) 15 gm Q15M PRN PO DECREASED GLUCOSE; Start 10/14/17 at 10:30 Glucose (Glutose) 22.5 gm Q15M PRN PO DECREASED GLUCOSE; Start 10/14/17 at 10: 30 Dextrose (D50w Syringe) 25 ml Q15M PRN IV DECREASED GLUCOSE; Start 10/14/17 at 10:30 Dextrose (D50w Syringe) 50 ml Q15M PRN IV DECREASED GLUCOSE; Start 10/14/17 at 10:30 Glucagon (Glucagen) 1 mg Q15M PRN IM DECREASED GLUCOSE; Start 10/14/17 at 10: 30 Glucose (Glutose) 15 gm Q15M PRN BUCCAL DECREASED GLUCOSE; Start 10/14/17 at 10:30 Assessment/Plan Chief Complaint/Hosp Course Assessment 1. Patient admitted for repair of right femoral artery pseudoaneurysm status post repair. 2. Status post septic shock on mechanical ventilation. Possible component of adrenal insufficiency. 3. Dysphagia with G-tube 4. End-stage renal failure on hemodialysis 5. Idiopathic pulmonary fibrosis. Chronic respiratory failure on mechanical ventilation 6. Encephalopathy possible toxic metabolic. CT head demonstrates no acute intracranial pathology. Plan 1. Continue mechanical ventilation, head of bed elevation aspiration precautions. 2. Continue antibiotics decrease steroids 3. Tube feeding as tolerated 4. Hemodialysis as tolerated Transfer back to [facility] to [facility]. Problems: ANGELINA TRUJILLO MD, [facility] Oct 14, 2017 12:13
--- NOTE | 2017-10-14 13:09 | CONS ---
Date/Time of Note Date/Time of Note DATE: 10/14/17 TIME: 13:08 Assessment/Plan Assessment/Plan Additional Assessment/Plan Additional Assessment/Plan IMPRESSION: 1. Status post aneurysm repair. 2. Septic shock. 3. Encephalopathy. CT scan of the brain no acute pathology, patient is still semi-comatose 4. Respiratory failure. 5. G-tube. Patient is tolerating feeding 6. End-stage renal disease for which he is on dialysis. 7. Atrial fibrillation. 8. Anemia. 9. Nontoxic megacolon. Better 10. DVT status post IVC filter. PLAN: Continue all supportive care Continue dialysis, on vent support Antibiotic as per ID Campbell flush as needed for abdominal distention Consultation Date/Type/Reason Admit Date/Time Sep 27, 2017 at 21:00 Initial Consult Date 09/28/17 Type of Consultation: Pulmonary Referring Provider: PHILIPPE JUARES DO 24 HR Interval Summary Subjective hx not possible: pt non-verbal Exam/Review of Systems Vital Signs Vitals Vital Signs Date Time Temp Pulse Resp B/P Pulse Ox O2 Delivery O2 Flow Rate FiO2 10/14/17 12:35 76 10/14/17 12:00 97.4 17 87/43 95 10/14/17 10:57 40 Intake and Output 10/13/17 10/13/17 10/14/17 15:00 23:00 07:00 Intake Total 1000 ml 650 ml Balance 1000 ml 650 ml Exam Constitutional: alert, oriented, well developed Psych: nl mood/affect, no complaints Head: atraumatic, normocephalic Eyes: EOMI, PERRL, nl conjunctiva, nl lids, nl sclera ENMT: nl external ears & nose, nl lips & teeth, nl nasal mucosa & septum Neck: non-tender, supple Respiratory: clear to auscultation, normal air movement Cardiovascular: nl pulses, regular rate and rhythm Gastrointestinal: nl liver, spleen, non-tender, soft Musculoskeletal: nl extremities to inspection, nl gait and stance Extremities: normal pulses Neurological: ROOF [employer]EMAN II-XII intact, nl mental status, nl speech, nl strength Skin: nl turgor, No rash or lesions Lymph: nl lymph nodes Results Result Diagram: 10/14/17 0614 10/14/17 0613 Results 24 hrs Laboratory Tests Test 10/13/17 17:18 10/13/17 23:30 10/14/17 05:18 10/14/17 06:13 Bedside Glucose 152 135 128 Sodium Level 136 Potassium Level 5.8 H Chloride Level 98 Carbon Dioxide Level 31 Anion Gap 13 Blood Urea Nitrogen 85 H Creatinine 1.92 H Glucose Level 110 Calcium Level 8.6 Phosphorus Level 5.4 H Magnesium Level 3.1 H Test 10/14/17 06:14 10/14/17 11:53 White Blood Count 15.4 H Red Blood Count 2.76 L Hemoglobin 8.9 L Hematocrit 27.8 L Mean Corpuscular Volume 100.7 Mean Corpuscular Hemoglobin 32.2 Mean Corpuscular Hemoglobin Concent 32.0 Red Cell Distribution Width 22.5 H Platelet Count 52 #L Mean Platelet Volume Neutrophils % Segmented Neutrophils % (Manual) 85 H Band Neutrophils % (Manual) 2 Lymphocytes % Lymphocytes % (Manual) 3 L Monocytes % Monocytes % (Manual) 9 Eosinophils % Basophils % Metamyelocytes % (manual) 1 H Myelocytes % (Manual) 1 H Nucleated Red Blood Cells % 1 H Neutrophils # Neutrophils # (Manual) 13.1 H Band Neutrophils # 0.3 Absolute Lymphocytes (Manual) 0.4 L Lymphocytes # Monocytes # Absolute Monocytes (Manual) 1.3 H Eosinophils # Basophils # Metamyelocytes # 0.1 H Myelocytes # 0.1 H Nucleated Red Blood Cells # Platelet Estimate SIG DECREASED Giant Platelets 4 H Polychromasia 3+ Hypochromasia 1+ Poikilocytosis 1+ Anisocytosis 3+ Macrocytosis 3+ Bedside Glucose 154 Medications Medications Current Medications Hydromorphone HCl (Dilaudid) 0.5 mg Q4H PRN IV PAIN Last administered on 17:00; Admin Dose 0.5 MG; Start 09/27/17 at 23:00 Midodrine (Proamatine) 10 mg TID@, GTB Last administered on 10/14/17 09:07; Admin Dose 10 MG; Start 09/28/17 at 09:00 Ascorbic Acid (Vitamin C) 500 mg DAILY GTB Last administered on 10/14/17 09: 07; Admin Dose 500 MG; Start 09/28/17 at 09:00 Cholecalciferol (Vitamin D) 2,000 unit DAILY GTB Last administered on 09:07; Admin Dose 2,000 UNIT; Start 09/28/17 at 09:00 Ferrous Sulfate (Feosol Liquid Cup) 300 mg DAILY GTB Last administered on 10/14 09:07; Admin Dose 300 MG; Start 09/28/17 at 09:00 Folic Acid (Folic Acid) 1 mg DAILY GTB Last administered on 10/14/17 09:07; Admin Dose 1 MG; Start 09/28/17 at 09:00 Acetaminophen/ Hydrocodone Bitart ([place] (5/325)) 1 tab DAILY GTB Last administered on 09/30/17 09:34; Admin Dose 1 TAB; Start 09/28/17 at 09:00; Status Future Hold Lactobacillus Acidophilus/ Rhamnosus (Culturelle) 1 cap BID GTB Last administered on 10/14/17 09:07; Admin Dose 1 CAP; Start 09/28/17 at 09:00 Sertraline HCl (Zoloft) 25 mg QHS GTB Last administered on 10/13/17 21:48; Admin Dose 25 MG; Start 09/28/17 at 21:00 Tramadol HCl (Ultram) 50 mg DAILY PRN GTB FOR WOUND CARE; Start 09/28/17 at 08 :00; Status Future Hold Tramadol HCl (Ultram) 50 mg Q8 GTB Last administered on 10/14/17 05:21; Admin Dose 50 MG; Start 09/28/17 at 14:00 Zolpidem Tartrate (Ambien) 5 mg QHS PRN GTB INSOMNIA; Start 09/28/17 at 08:00 Diagnostic Test (Pha) 1 ea 1 ea 02 XX Last administered on 10/08/17 01:31; Admin Dose 1 EA; Start 09/29/17 at 02:00 Dextrose/Sodium Chloride (D5-NS) 1,000 ml @ 20 mls/hr Q24H IV Last administered on 10/14/17 12:03; Admin Dose 20 MLS/HR; Start 09/28/17 at 19:00 Collagenase (Santyl) 1 applic DAILY TOP Last administered on 10/12/17 13:29; Admin Dose 1 APPLIC; Start 09/29/17 at 12:00 Docusate Sodium (Colace Liquid Cup) 100 mg BID GTB Last administered on 09:07; Admin Dose 100 MG; Start 09/30/17 at 21:00 Multivitamins/ Minerals (Theragran-M) 1 tab DAILY GTB Last administered on 09:07; Admin Dose 1 TAB; Start 09/30/17 at 10:00 Lansoprazole (Prevacid) 30 mg DAILY@06 GTB Last administered on 10/14/17 05: 21; Admin Dose 30 MG; Start 09/30/17 at 12:15 Hydrogen Peroxide (Hydrogen Peroxide) 1 applic BID TOP Last administered on 21:49; Admin Dose 1 APPLIC; Start 09/30/17 at 21:00 Heparin Sodium (Porcine) (Heparin (5000 Units/0.5 ml)) 5,000 unit BID SC Last administered on 10/14/17 09:12; Admin Dose 5,000 UNIT; Start 10/01/17 at 21: 00 Brimonidine Tartrate (Alphagan P 0.1%) 1 drop BID BOTH EYES Last administered on 10/14/17 09:06; Admin Dose 1 DROP; Start 10/03/17 at 21:00 Silver Sulfadiazine 1 applic 1 applic DAILY TOP Last administered on 09:15; Admin Dose 1 APPLIC; Start 10/05/17 at 11:00 Daptomycin 290 mg/ Sodium Chloride 100 ml @ 200 mls/hr Q48H IVPB Last administered on 10/12/17 17:22; Admin Dose 200 MLS/HR; Start 10/08/17 at 18: 00 Colistimethate Sodium/Sodium Chloride (Coly-Mycin/NS) 100 ml @ 200 mls/hr Q24H IVPB Last administered on 10/13/17 17:20; Admin Dose 200 MLS/HR; Start 10/08 at 15:00 Miscellaneous Information (Pending Santyl Order For Wound Care) This patient reyes... PRN PRN XX WOUND CARE; Start 10/08/17 at 14:00 Hydrocortisone (Solu-Cortef) 25 mg Q8 IV Last administered on 10/14/17 05:20 ; Admin Dose 25 MG; Start 10/10/17 at 14:00 Insulin Aspart (Novolog Insulin Pen) NOVOLOG *MILD* ALGORITHM Q6 SC Last administered on 10/14/17 11:57; Admin Dose 1 UNIT; Start 10/12/17 at 12:00 Miscellaneous Information 1 ea NOTE XX ; Start 10/14/17 at 10:30 Glucose (Glutose) 15 gm Q15M PRN PO DECREASED GLUCOSE; Start 10/14/17 at 10:30 Glucose (Glutose) 22.5 gm Q15M PRN PO DECREASED GLUCOSE; Start 10/14/17 at 10: 30 Dextrose (D50w Syringe) 25 ml Q15M PRN IV DECREASED GLUCOSE; Start 10/14/17 at 10:30 Dextrose (D50w Syringe) 50 ml Q15M PRN IV DECREASED GLUCOSE; Start 10/14/17 at 10:30 Glucagon (Glucagen) 1 mg Q15M PRN IM DECREASED GLUCOSE; Start 10/14/17 at 10: 30 Glucose (Glutose) 15 gm Q15M PRN BUCCAL DECREASED GLUCOSE; Start 10/14/17 at 10:30 LIANNA BOWLING MD Oct 14, 2017 13:09
--- NOTE | 2017-10-14 15:45 | CONS ---
Date/Time of Note Date/Time of Note DATE: 10/14/17 TIME: 15:34 Assessment/Plan Assessment/Plan Chief Complaint/Hosp Course ID PROGRESS NOTE CURRENT ABX: DAY # =>Daptomycin, Colistin IV => Continued for Osteomyelitis s/p Diflucan, Merrem-> DC'd 24H INTERVAL SUMMARY * Low Tmax today 97.4, WBC up today to 15.4, now w/low B/P => Recurrent cold shock ? * Chronic encephalopathic -- Remains on ABX for findings of sacral osteomyelitis * No longer has PICC line PHYSICAL EXAMINATION: GENERAL: 87 yo critically on chronically ill/debilitated M, non-communicative, encephalopathic, VSS, afebrile, NAD HEENT: Unremarkable NECK: Supple, trach midline CHEST: Equal chest rise bilaterally, without dyspnea on observation HEART: RRR ABDOMEN: Large, NT, Peg w/surrounding cellulitis : NL M, anuric EXT: Warm, BUEXT ecchymosis w/edema R>L, BLEXT generalized edema, warm SKIN: No diaphoresis, multiple areas of ecchymosis, decubs - Right thigh DSG ID ASSESSMENT: 87 yo M PMHx dementia, HTN, HLD, DMT2, ESRD-HD admit [facility] ICU: 1. SIRS w/persistent leukocytosis == s/p Septic shock = > RESOLVED * 09/28/17 BCx (-) * Hx of recurrent yeast UTI -> s/p VFEND 2. Right femoral pseudoaneurysm repair, status post right femoral pseudoaneurysm repair. 3. HCAP vs ASP PNA w/bilateral pleural effusions and opacification ILD, pulm edema / ATX 4. Idiopathic pulmonary fibrosis. 5. G-tube site cellulitis. 6. Nontoxic megacolon. 7. Multiple chronic wounds * Wound Cx: Delacruz => ACBA, VRE, KP-ESBL, PSAR * Sacral coccygeal osteomyelitis, status post debridement. 8. Failure to thrive. 9. Endstage renal disease. 10. Acute on chronic encephalopathy. 11. Bilateral sinus disease (- )MRSA ABX ALLERGIES: None to ABX INVASIVES: : Trach, PEG,R- Perm-A-Cath CURRENT ABX: DAY # =>Daptomycin, Colistin IV => Continued for Osteomyelitis s/p Diflucan, Merrem-> DC'd ID RECOMMENDATIONS/PLAN: 1. Patient remains on continued lengthy course of IV ABX for sacral osteomyelitis 2. Today patient appears w/picture suspicious for cold shock -> repeat BCx via PICC & PermCath, sputum, ua, culture ordered * Suspect recurrent yeast uti -> will start Cancidas empiric * Will add Flagyl for anaerobic wound, GI coverage -- f/u on Micro results . . Problems: Consultation Date/Type/Reason Admit Date/Time Sep 27, 2017 at 21:00 Initial Consult Date 10/05/17 Type of Consultation: ID Referring Provider: PHILIPPE JUARES DO Exam/Review of Systems Vital Signs Vitals Vital Signs Date Time Temp Pulse Resp B/P Pulse Ox O2 Delivery O2 Flow Rate FiO2 10/14/17 12:35 76 10/14/17 12:00 97.4 17 87/43 95 10/14/17 10:57 40 Intake and Output 10/13/17 10/13/17 10/14/17 15:00 23:00 07:00 Intake Total 1000 ml 650 ml Balance 1000 ml 650 ml Results Result Diagram: 10/14/17 0614 10/14/17 0613 Results 24 hrs Laboratory Tests Test 10/13/17 17:18 10/13/17 23:30 10/14/17 05:18 10/14/17 06:13 Bedside Glucose 152 135 128 Sodium Level 136 Potassium Level 5.8 H Chloride Level 98 Carbon Dioxide Level 31 Anion Gap 13 Blood Urea Nitrogen 85 H Creatinine 1.92 H Glucose Level 110 Calcium Level 8.6 Phosphorus Level 5.4 H Magnesium Level 3.1 H Test 10/14/17 06:14 10/14/17 11:53 White Blood Count 15.4 H Red Blood Count 2.76 L Hemoglobin 8.9 L Hematocrit 27.8 L Mean Corpuscular Volume 100.7 Mean Corpuscular Hemoglobin 32.2 Mean Corpuscular Hemoglobin Concent 32.0 Red Cell Distribution Width 22.5 H Platelet Count 52 #L Mean Platelet Volume Neutrophils % Segmented Neutrophils % (Manual) 85 H Band Neutrophils % (Manual) 2 Lymphocytes % Lymphocytes % (Manual) 3 L Monocytes % Monocytes % (Manual) 9 Eosinophils % Basophils % Metamyelocytes % (manual) 1 H Myelocytes % (Manual) 1 H Nucleated Red Blood Cells % 1 H Neutrophils # Neutrophils # (Manual) 13.1 H Band Neutrophils # 0.3 Absolute Lymphocytes (Manual) 0.4 L Lymphocytes # Monocytes # Absolute Monocytes (Manual) 1.3 H Eosinophils # Basophils # Metamyelocytes # 0.1 H Myelocytes # 0.1 H Nucleated Red Blood Cells # Platelet Estimate SIG DECREASED Giant Platelets 4 H Polychromasia 3+ Hypochromasia 1+ Poikilocytosis 1+ Anisocytosis 3+ Macrocytosis 3+ Bedside Glucose 154 Medications Medications Current Medications Hydromorphone HCl (Dilaudid) 0.5 mg Q4H PRN IV PAIN Last administered on 17:00; Admin Dose 0.5 MG; Start 09/27/17 at 23:00 Midodrine (Proamatine) 10 mg TID@ GTB Last administered on 10/14/17 13:05; Admin Dose 10 MG; Start 09/28/17 at 09:00 Ascorbic Acid (Vitamin C) 500 mg DAILY GTB Last administered on 10/14/17 09: 07; Admin Dose 500 MG; Start 09/28/17 at 09:00 Cholecalciferol (Vitamin D) 2,000 unit DAILY GTB Last administered on 09:07; Admin Dose 2,000 UNIT; Start 09/28/17 at 09:00 Ferrous Sulfate (Feosol Liquid Cup) 300 mg DAILY GTB Last administered on 10/14 09:07; Admin Dose 300 MG; Start 09/28/17 at 09:00 Folic Acid (Folic Acid) 1 mg DAILY GTB Last administered on 10/14/17 09:07; Admin Dose 1 MG; Start 09/28/17 at 09:00 Acetaminophen/ Hydrocodone Bitart ([employer] (5/325)) 1 tab DAILY GTB Last administered on 09/30/17 09:34; Admin Dose 1 TAB; Start 09/28/17 at 09:00; Status Future Hold Lactobacillus Acidophilus/ Rhamnosus (Culturelle) 1 cap BID GTB Last administered on 10/14/17 09:07; Admin Dose 1 CAP; Start 09/28/17 at 09:00 Sertraline HCl (Zoloft) 25 mg QHS GTB Last administered on 10/13/17 21:48; Admin Dose 25 MG; Start 09/28/17 at 21:00 Tramadol HCl (Ultram) 50 mg DAILY PRN GTB FOR WOUND CARE; Start 09/28/17 at 08 :00; Status Future Hold Tramadol HCl (Ultram) 50 mg Q8 GTB Last administered on 10/14/17 13:05; Admin Dose 50 MG; Start 09/28/17 at 14:00 Zolpidem Tartrate (Ambien) 5 mg QHS PRN GTB INSOMNIA; Start 09/28/17 at 08:00 Diagnostic Test (Pha) 1 ea 1 ea 02 XX Last administered on 10/08/17 01:31; Admin Dose 1 EA; Start 09/29/17 at 02:00 Dextrose/Sodium Chloride (D5-NS) 1,000 ml @ 20 mls/hr Q24H IV Last administered on 10/14/17 12:03; Admin Dose 20 MLS/HR; Start 09/28/17 at 19:00 Collagenase (Santyl) 1 applic DAILY TOP Last administered on 10/12/17 13:29; Admin Dose 1 APPLIC; Start 09/29/17 at 12:00 Docusate Sodium (Colace Liquid Cup) 100 mg BID GTB Last administered on 09:07; Admin Dose 100 MG; Start 09/30/17 at 21:00 Multivitamins/ Minerals (Theragran-M) 1 tab DAILY GTB Last administered on 09:07; Admin Dose 1 TAB; Start 09/30/17 at 10:00 Lansoprazole (Prevacid) 30 mg DAILY@06 GTB Last administered on 10/14/17 05: 21; Admin Dose 30 MG; Start 09/30/17 at 12:15 Hydrogen Peroxide (Hydrogen Peroxide) 1 applic BID TOP Last administered on 21:49; Admin Dose 1 APPLIC; Start 09/30/17 at 21:00 Heparin Sodium (Porcine) (Heparin (5000 Units/0.5 ml)) 5,000 unit BID SC Last administered on 10/14/17 09:12; Admin Dose 5,000 UNIT; Start 10/01/17 at 21: 00 Brimonidine Tartrate (Alphagan P 0.1%) 1 drop BID BOTH EYES Last administered on 10/14/17 09:06; Admin Dose 1 DROP; Start 10/03/17 at 21:00 Silver Sulfadiazine 1 applic 1 applic DAILY TOP Last administered on 09:15; Admin Dose 1 APPLIC; Start 10/05/17 at 11:00 Daptomycin 290 mg/ Sodium Chloride 100 ml @ 200 mls/hr Q48H IVPB Last administered on 10/12/17 17:22; Admin Dose 200 MLS/HR; Start 10/08/17 at 18: 00 Colistimethate Sodium/Sodium Chloride (Coly-Mycin/NS) 100 ml @ 200 mls/hr Q24H IVPB Last administered on 10/13/17 17:20; Admin Dose 200 MLS/HR; Start 10/08 at 15:00 Miscellaneous Information (Pending [facility] Order For Wound Care) This patient reyes... PRN PRN XX WOUND CARE; Start 10/08/17 at 14:00 Hydrocortisone (Solu-Cortef) 25 mg Q8 IV Last administered on 10/14/17 13:05 ; Admin Dose 25 MG; Start 10/10/17 at 14:00 Insulin Aspart (Novolog Insulin Pen) NOVOLOG *MILD* ALGORITHM Q6 SC Last administered on 10/14/17 11:57; Admin Dose 1 UNIT; Start 10/12/17 at 12:00 Miscellaneous Information 1 ea NOTE XX ; Start 10/14/17 at 10:30 Glucose (Glutose) 15 gm Q15M PRN PO DECREASED GLUCOSE; Start 10/14/17 at 10:30 Glucose (Glutose) 22.5 gm Q15M PRN PO DECREASED GLUCOSE; Start 10/14/17 at 10: 30 Dextrose (D50w Syringe) 25 ml Q15M PRN IV DECREASED GLUCOSE; Start 10/14/17 at 10:30 Dextrose (D50w Syringe) 50 ml Q15M PRN IV DECREASED GLUCOSE; Start 10/14/17 at 10:30 Glucagon (Glucagen) 1 mg Q15M PRN IM DECREASED GLUCOSE; Start 10/14/17 at 10: 30 Glucose (Glutose) 15 gm Q15M PRN BUCCAL DECREASED GLUCOSE; Start 10/14/17 at 10:30 NURYS FLOREZ NP Oct 14, 2017 15:44
[2017-10-14] MEDS ORDERED: CASPOFUNGIN 70 MG in SOD CHLORIDE 0.9% 250 ML IVPB ONE (16:00)
[2017-10-14] MEDS: metroNIDAZOLE 250 MG TAB GTB SCH ×2 (16:40→21:14)
[2017-10-14] MEDS: COLISTIMETHATE 75 MG in SOD CHLORIDE 0.9% 100 ML IVPB SCH (16:41)
[2017-10-14] MEDS: SOD CHLORIDE 0.9% IVPB SCH (17:31)
[2017-10-14] MEDS: DAPTOMYCIN IVPB SCH (17:31)
[2017-10-14] MEDS: SERTRALINE 50 MG TAB GTB SCH (21:14)
--- NOTE | 2017-10-14 21:30 | PN ---
Date/Time of Note Date/Time of Note DATE: 10/14/17 TIME: 21:28 Assessment/Plan Lines/Catheters IV Catheter Type (from [facility]): PERMACATH. Pathak in Place (from [facility]): No Assessment/Plan Chief Complaint/Hosp Course 1. Hypotension, sepsis. -supportive -judicious fluids -consider hospice/comfort measures - d/w 2. Sacral & left trochanter pressure ulcers: -debridement prn -local care -frequent turning and off-loading -low air loss mattress -vitamin c -short term zinc -optimize nutrition 3. 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 End-stage renal disease -HD per renal -avoid/limit nephrotoxic meds -judicious fluids -renally dose meds 5. Anemia: no acute bleed noted -closely monitor surgical site -transfuse as needed 6. Atrial fibrillation -rate control -lyte optimization -cards optimization 7. Dysphagia with feeding tube: on tube feeds -cont tf with aspiration precautions 8. Leukocytosis: afebrile -monitor -further workup if persistent 9. Thrombocytosis -supportive 10. Hypoalbuminemia: likely multifactorial -optimize nutrition -medical management of inflammation/infection 11. Electrolyte imbalance -optimize lytes and monitor 12. Ventilator dependent respiratory failure -per pulm -pulm toilet -respiratory treatments Thank you, Problems: Subjective 24 Hr Interval Summary Continues to be obtunded. Leukocytosis. No fevers, congested cough, v/d. Non responsive. No cough. No sz. No rashes. No bloating. No jt swelling. Exam/Review of Systems Vital Signs Vitals Vital Signs Date Time Temp Pulse Resp B/P Pulse Ox O2 Delivery O2 Flow Rate FiO2 10/14/17 20:49 53 10/14/17 20:06 96.8 14 105/52 97 10/14/17 20:00 40 Intake and Output 10/13/17 10/13/17 10/14/17 15:00 23:00 07:00 Intake Total 1000 ml 650 ml Balance 1000 ml 650 ml Exam Free Text/Dictation Constitutional: Not following commands, ventilated Psych: lethargic, non responsive Head: atraumatic, normocephalic Eyes: nl lids, nl sclera ENMT: mucosa pink and moist, nl nasal mucosa & septum Neck: non-tender, other (trach-vent), supple Respiratory: diminished breath sounds, No labored breathing Cardiovascular: irregular rhythm, other (afib) Gastrointestinal: non-tender, other (peg), soft Genitourinary - Male: nl penis, nl scrotum Musculoskeletal: nl extremities to inspection, swelling improved Extremities: cap refill 2 s Neurological: No nl speech, No nl strength (gen weakness) Skin: Femoral incision with dressing, sacral and left troch pressure ulcers Lymph: No nl lymph nodes Results Result Diagram: 10/14/17 0614 10/14/17 0613 CORA MATAMOROS MD Oct 14, 2017 21:30
[2017-10-15] VITALS (23 sets, daily range): BP systolic 86–104; BP diastolic 42–53; PULSE 62–74; RESP 12–20
[2017-10-15] MEDS: ACCU-CHEK XX SCH (00:26)
[2017-10-15] MEDS: traMADol 50 MG TAB GTB SCH ×3 (06:31→21:01)
[2017-10-15] MEDS: metroNIDAZOLE 250 MG TAB GTB SCH ×3 (06:32→21:00)
[2017-10-15] MEDS: LANSOPRAZOLE 30 MG CAP GTB SCH (06:32)
[2017-10-15] MEDS: HYDROCORTISONE 100 MG INJ IV SCH ×3 (06:33→21:01)
[2017-10-15] MEDS: INSULIN ASPART [NOVOLOG] 3 ML PEN SC SCH ×3 (06:38→17:56)
[2017-10-15 08:50] LABS: ABNORMAL IP MESSAGE 1; BASOPHILS % 0.1 % (0.0-2.0); EOSINOPHILS # 0.1 10^3/ul (0.0-0.5); EOSINOPHILS % 0.5 % (0.0-7.0); HEMATOCRIT 27.6 % (42.0-52.0); HEMOGLOBIN 8.7 g/dl (14.0-18.0); LYMPHOCYTES # 0.1 10^3/ul (0.8-2.9); LYMPHOCYTES % 0.6 % (15.0-51.0); MEAN CORPUSCULAR HGB CONC 31.5 g/dl (32.0-37.0); MEAN CORPUSCULAR VOLUME 104.5 fl (82.0-101.0); MONOCYTE # 1.6 10^3/ul (0.3-0.9); NEUTROPHIL # 17.4 10^3/ul (1.6-7.5); NEUTROPHILS % 87.9 % (39.0-77.0); NUCLEATED RED BLOOD CELLS # 0.5 10^3/ul (0.0-0.0); NUCLEATED RED BLOOD CELLS% 2.7 /100WBC (0.0-0.0); POSITIVE DIFF @See below; RED BLOOD COUNT 2.64 10^6/ul (4.70-6.10); WHITE BLOOD COUNT 19.8 10^3/ul (4.8-10.8)
[2017-10-15 08:52] LABS: PLATELET COUNT 52 10^3/UL (140-415)
[2017-10-15] MEDS: LACTOBACILLUS RHAMNOSUS CAP GTB SCH ×2 (09:00→21:02)
--- NOTE | 2017-10-15 09:10 | RADRPT ---
PROCEDURE: XR Chest. CLINICAL INDICATION: Pneumonia TECHNIQUE: An AP view of the chest was obtained. COMPARISON: Chest x-ray dated 10/06/2017 FINDINGS: A tracheostomy tube is in place. There is a right chest Perma-Cath with tip in the right atrium. There are diffuse reticulonodular interstitial opacities with moderate right and small left pleural effusions. No focal airspace opacification or pneumothorax is seen. The cardiomediastinal silhoue tte is mildly enlarged . Calcifications are seen within the aortic arch. The osseous structures de monstrate senescent changes. IMPRESSION: 1. Diffuse reticulonodular interstitial opacities may reflect edema or pneumonia. Findings are incr eased when compared to the prior examination. 2. Moderate right and small left pleural effusions, unchanged to mildly increased. 3. Mild cardiomegaly and aortic atherosclerosis. 4. Tubes and lines, as described above. RPTAT: HH .Trudi Garcia MD, MD Date Time Electronically viewed and signed by .Trudi Garcia MD, on 10/15/2017 09:10 .G/
[2017-10-15 09:20] LABS: CREATININE 1.65 mg/dl (0.61-1.24); MAGNESIUM 2.6 mg/dl (1.7-2.5); PHOSPHORUS 4.5 mg/dl (2.5-4.9); POTASSIUM 4.2 mmol/L (3.5-5.1)
--- NOTE | 2017-10-15 10:13 | PN ---
DATE: 10/15/2017 SUBJECTIVE: The patient is stable. No events overnight. OBJECTIVE: VITAL SIGNS: Blood pressure is 95/51, temperature 96.2, pulse 75, respirations 20. HEENT: Head is normocephalic. NECK: Supple. HEART: Regular rate. LUNGS: Show diminished breath sounds at base. ABDOMEN: Soft, nontender to palpation. No rebound or guarding. EXTREMITIES: Negative for clubbing, cyanosis. Positive edema. DERMATOLOGIC: No rashes. MUSCULOSKELETAL: No joint effusions. NEUROLOGIC: No change in exam. MEDICATIONS: The patient's medications have been reviewed. LABORATORY DATA: Currently pending. ASSESSMENT AND PLAN: 1. Sepsis, status post shock secondary to pneumonia. The patient is completing antibiotic course. In sinus rhythm. Continue medical management. 2. Ventilator dependent respiratory failure. Vent settings and ABG is reviewed. Continue to monit or. 3. Right-sided aneurysm repair, status postsurgical correction. 4. Acute encephalopathy on top of dementia. Etiology is toxic metabolic, no significant change in mental status. 5. End-stage renal disease. Plan for dialysis tomorrow. 6. Hyperkalemia. Continue dialysis on a low potassium diet. 7. Volume overload secondary to congestive heart failure, end-stage renal disease. Continue ultraf iltration with dialysis. 8. Mineral bone disorder. Continue to monitor calcium and phosphorus levels. 9. Dysphagia placed G-tube. 10. Decubitus wound. Continue wound care. 11. Thrombocytopenia. Continue to monitor. 12. Gastrointestinal and deep venous thrombosis prophylaxis. Dictated By: PHILIPPE WILSON/NORM Conf#: [id number] DID#: [id number] CC: CORA MATAMOROS MD;*EndCC*
[2017-10-15] MEDS: ASCORBIC ACID 500 MG TAB GTB SCH (10:20)
[2017-10-15] MEDS: DOCUSATE SODIUM 10 MG/ML (10ML CUP) GTB SCH ×2 (10:20→21:00)
[2017-10-15] MEDS: FERROUS SULFATE 60 MG/ML 5ML CUP GTB SCH (10:20)
[2017-10-15] MEDS: HYDROGEN PEROXIDE 118 ML TOP SCH ×2 (10:20→21:03)
[2017-10-15] MEDS: COLLAGENASE 30 GM TUBE TOP SCH (10:20)
[2017-10-15] MEDS: FOLIC ACID 1 MG TAB GTB SCH (10:20)
[2017-10-15] MEDS: MULTIVITAMINS/MINERALS TAB GTB SCH (10:21)
[2017-10-15] MEDS: CHOLECALCIFEROL 2,000 UNIT CAP GTB SCH (10:21)
[2017-10-15] MEDS: MIDODRINE 5 MG TAB GTB SCH ×3 (10:22→17:49)
[2017-10-15] MEDS: SILVER SULFADIAZINE 1% 25 GM CR TOP SCH (10:22)
[2017-10-15] MEDS: BRIMONIDINE 0.1% 5 ML OPH BOTH EYES SCH ×2 (10:22→21:02)
[2017-10-15] MEDS: HEPARIN 5,000 UNIT/0.5 ML VIAL SC SCH ×2 (10:52→21:16)
--- NOTE | 2017-10-15 11:20 | CONS ---
Date/Time of Note Date/Time of Note DATE: 10/15/17 TIME: 11:19 Consult Date/Type/Reason Admit Date/Time Sep 27, 2017 at 21:00 Initial Consult Date 09/28/17 Type of Consultation: Pulmonary Ordering Provider: PHILIPPE JUARES DO Subjective neurologically unchanged. Remains obtunded.Discussed with staff unable to Place Pathak catheter. Objective Vital Signs Date Time Temp Pulse Resp B/P Pulse Ox O2 Delivery O2 Flow Rate FiO2 10/15/17 09:05 70 12 96 40 10/15/17 08:15 96.2 95/51 Intake and Output 10/14/17 10/14/17 10/15/17 14:59 22:59 06:59 Intake Total 400 ml 900 ml Output Total 1500 ml Balance -1100 ml 900 ml Exam GENERAL: Elderly gentleman comfortable at rest on mechanical ventilation. VITAL SIGNS: per chart NECK: Supple. No JVD or lymphadenopathy. CARDIAC EXAM: S1, S2. No added sounds or murmurs. CHEST: clear bilaterally, No added sounds, rales or wheezes ABDOMEN: Soft, nontender. No guarding or rebound. EXTREMITIES: No cyanosis, clubbing or edema. NEUROLOGIC: Unable to assess. Results/Medications Result Diagram: 10/15/1722 10/15/17 0822 Results 24 hrs Laboratory Tests Test 10/14/17 11:53 10/14/17 17:40 10/14/17 23:13 10/15/17 06:36 Bedside Glucose 154 110 158 147 Test 10/15/17 08:22 White Blood Count 19.8 #H Red Blood Count 2.64 L Hemoglobin 8.7 L Hematocrit 27.6 L Mean Corpuscular Volume 104.5 H Mean Corpuscular Hemoglobin 33.0 Mean Corpuscular Hemoglobin Concent 31.5 L Red Cell Distribution Width 23.0 H Platelet Count 52 L Mean Platelet Volume Neutrophils % 87.9 H Lymphocytes % 0.6 L Monocytes % 8.0 Eosinophils % 0.5 Basophils % 0.1 Nucleated Red Blood Cells % 2.7 H Neutrophils # 17.4 H Lymphocytes # 0.1 L Monocytes # 1.6 H Eosinophils # 0.1 Basophils # 0.0 Nucleated Red Blood Cells # 0.5 H Sodium Level 134 L Potassium Level 4.2 Chloride Level 94 L Carbon Dioxide Level 30 Anion Gap 14 Blood Urea Nitrogen 66 H Creatinine 1.65 H Glucose Level 141 Calcium Level 8.0 L Phosphorus Level 4.5 Magnesium Level 2.6 H Medications Current Medications Hydromorphone HCl (Dilaudid) 0.5 mg Q4H PRN IV PAIN Last administered on 17:00; Admin Dose 0.5 MG; Start 09/27/17 at 23:00 Midodrine (Proamatine) 10 mg TID@ GTB Last administered on 10/15/17 10:22; Admin Dose 10 MG; Start 09/28/17 at 09:00 Ascorbic Acid (Vitamin C) 500 mg DAILY GTB Last administered on 10/15/17 10: 20; Admin Dose 500 MG; Start 09/28/17 at 09:00 Cholecalciferol (Vitamin D) 2,000 unit DAILY GTB Last administered on 10:21; Admin Dose 2,000 UNIT; Start 09/28/17 at 09:00 Ferrous Sulfate (Feosol Liquid Cup) 300 mg DAILY GTB Last administered on 10/15 10:20; Admin Dose 300 MG; Start 09/28/17 at 09:00 Folic Acid (Folic Acid) 1 mg DAILY GTB Last administered on 10/15/17 10:20; Admin Dose 1 MG; Start 09/28/17 at 09:00 Acetaminophen/ Hydrocodone Bitart ([place] (5/325)) 1 tab DAILY GTB Last administered on 09/30/17 09:34; Admin Dose 1 TAB; Start 09/28/17 at 09:00; Status Future Hold Lactobacillus Acidophilus/ Rhamnosus (Culturelle) 1 cap BID GTB Last administered on 10/15/17 09:00; Admin Dose 1 CAP; Start 09/28/17 at 09:00 Sertraline HCl (Zoloft) 25 mg QHS GTB Last administered on 10/14/17 21:14; Admin Dose 25 MG; Start 09/28/17 at 21:00 Tramadol HCl (Ultram) 50 mg DAILY PRN GTB FOR WOUND CARE; Start 09/28/17 at 08 :00; Status Future Hold Tramadol HCl (Ultram) 50 mg Q8 GTB Last administered on 10/15/17 06:31; Admin Dose 50 MG; Start 09/28/17 at 14:00 Zolpidem Tartrate (Ambien) 5 mg QHS PRN GTB INSOMNIA; Start 09/28/17 at 08:00 Diagnostic Test (Pha) (Accu-Chek) 1 ea 02 XX Last administered on 10/08/17 01 :31; Admin Dose 1 EA; Start 09/29/17 at 02:00 Collagenase (Santyl) 1 applic DAILY TOP Last administered on 10/15/17 10:20; Admin Dose 1 APPLIC; Start 09/29/17 at 12:00 Docusate Sodium (Colace Liquid Cup) 100 mg BID GTB Last administered on 10:20; Admin Dose 100 MG; Start 09/30/17 at 21:00 Multivitamins/ Minerals (Theragran-M) 1 tab DAILY GTB Last administered on 10:21; Admin Dose 1 TAB; Start 09/30/17 at 10:00 Lansoprazole (Prevacid) 30 mg DAILY@06 GTB Last administered on 10/15/17 06: 32; Admin Dose 30 MG; Start 09/30/17 at 12:15 Hydrogen Peroxide (Hydrogen Peroxide) 1 applic BID TOP Last administered on 10:20; Admin Dose 1 APPLIC; Start 09/30/17 at 21:00 Heparin Sodium (Porcine) (Heparin (5000 Units/0.5 ml)) 5,000 unit BID SC Last administered on 10/15/17 10:52; Admin Dose 5,000 UNIT; Start 10/01/17 at 21: 00 Brimonidine Tartrate (Alphagan P 0.1%) 1 drop BID BOTH EYES Last administered on 10/15/17 10:22; Admin Dose 1 DROP; Start 10/03/17 at 21:00 Silver Sulfadiazine 1 applic 1 applic DAILY TOP Last administered on 10:22; Admin Dose 1 APPLIC; Start 10/05/17 at 11:00 Daptomycin 290 mg/ Sodium Chloride 100 ml @ 200 mls/hr Q48H IVPB Last administered on 10/14/17 17:31; Admin Dose 200 MLS/HR; Start 10/08/17 at 18: 00 Colistimethate Sodium/Sodium Chloride (Coly-Mycin/NS) 100 ml @ 200 mls/hr Q24H IVPB Last administered on 10/14/17 16:41; Admin Dose 200 MLS/HR; Start 10/08 at 15:00 Miscellaneous Information (Pending [facility] Order For Wound Care) This patient reyes... PRN PRN XX WOUND CARE; Start 10/08/17 at 14:00 Hydrocortisone (Solu-Cortef) 25 mg Q8 IV Last administered on 10/15/17 06:33 ; Admin Dose 25 MG; Start 10/10/17 at 14:00 Insulin Aspart (Novolog Insulin Pen) NOVOLOG *MILD* ALGORITHM Q6 SC Last administered on 10/15/17 06:38; Admin Dose 1 UNIT; Start 10/12/17 at 12:00 Miscellaneous Information 1 ea NOTE XX ; Start 10/14/17 at 10:30 Glucose (Glutose) 15 gm Q15M PRN PO DECREASED GLUCOSE; Start 10/14/17 at 10:30 Glucose (Glutose) 22.5 gm Q15M PRN PO DECREASED GLUCOSE; Start 10/14/17 at 10: 30 Dextrose (D50w Syringe) 25 ml Q15M PRN IV DECREASED GLUCOSE; Start 10/14/17 at 10:30 Dextrose (D50w Syringe) 50 ml Q15M PRN IV DECREASED GLUCOSE; Start 10/14/17 at 10:30 Glucagon (Glucagen) 1 mg Q15M PRN IM DECREASED GLUCOSE; Start 10/14/17 at 10: 30 Glucose (Glutose) 15 gm Q15M PRN BUCCAL DECREASED GLUCOSE; Start 10/14/17 at 10:30 Metronidazole 250 mg 250 mg Q8 GTB Last administered on 10/15/17 06:32; Admin Dose 250 MG; Start 10/14/17 at 16:00 Caspofungin/ Sodium Chloride (Cancidas/NS) 250 ml @ 250 mls/hr Q24H IVPB ; Start 10/15/17 at 16:00 Assessment/Plan Chief Complaint/Hosp Course Assessment 1. Patient admitted for repair of right femoral artery pseudoaneurysm status post repair. 2. Status post septic shock on mechanical ventilation. Possible component of adrenal insufficiency. 3. Dysphagia with G-tube 4. End-stage renal failure on hemodialysis 5. Idiopathic pulmonary fibrosis. Chronic respiratory failure on mechanical ventilation 6. Encephalopathy possible toxic metabolic. CT head demonstrates no acute intracranial pathology. Plan 1. Continue mechanical ventilation, head of bed elevation aspiration precautions. 2. Continue antibiotics decrease steroids 3. Tube feeding as tolerated 4. Hemodialysis as tolerated 5. Continue antibiotics Problems: ANGELINA TRUJILLO MD, [facility] Oct 15, 2017 11:20
--- NOTE | 2017-10-15 12:21 | PN ---
Date/Time of Note Date/Time of Note DATE: 10/15/17 TIME: 12:12 Assessment/Plan Lines/Catheters IV Catheter Type (from [facility] Permacath Pathak in Place (from [facility]): No Assessment/Plan Chief Complaint/Hosp Course 1. Hypotension, sepsis. -supportive -judicious fluids -consider hospice/comfort measures - d/w 2. Sacral & left trochanter pressure ulcers: -debridement prn -local care -frequent turning and off-loading -low air loss mattress -vitamin c -short term zinc -optimize nutrition 3. 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 End-stage renal disease -HD per renal -avoid/limit nephrotoxic meds -judicious fluids -renally dose meds 5. Anemia: no acute bleed noted -closely monitor surgical site -transfuse as needed 6. Atrial fibrillation -rate control -lyte optimization -cards optimization 7. Dysphagia with feeding tube: on tube feeds -cont tf with aspiration precautions 8. Leukocytosis: afebrile -monitor -further workup if persistent 9. Thrombocytosis -supportive 10. Hypoalbuminemia: likely multifactorial -optimize nutrition -medical management of inflammation/infection 11. Electrolyte imbalance -optimize lytes and monitor 12. Ventilator dependent respiratory failure with increased pl effusion; edema vs. pna -per pulm -pulm toilet -respiratory treatments ?abx 13. Encephalopathy: -supportive 13. Leukocytosis: 2/ #12 +/- ?#2 -as above Thank you. Patient seen and examined in collaboration with Dr. Ho Lua. Problems: Subjective 24 Hr Interval Summary Leukocytosis. Appears comfortable on vent. Nonverbal indicators of pain not present. No fevers, congested cough, sz, excessive wound drainage, new wounds. Exam/Review of Systems Vital Signs Vitals Vital Signs Date Time Temp Pulse Resp B/P Pulse Ox O2 Delivery O2 Flow Rate FiO2 10/15/17 12:03 96.3 65 20 104/51 91 10/15/17 11:15 40 Intake and Output 10/14/17 10/14/17 10/15/17 14:59 22:59 06:59 Intake Total 400 ml 900 ml Output Total 1500 ml Balance -1100 ml 900 ml Exam Free Text/Dictation Constitutional: Not following commands, ventilated Psych: lethargic, non responsive Head: atraumatic, normocephalic Eyes: nl lids, nl sclera ENMT: mucosa pink and moist, nl nasal mucosa & septum Neck: non-tender, other (trach-vent), supple Respiratory: diminished breath sounds, No labored breathing Cardiovascular: irregular rhythm, other (afib) Gastrointestinal: non-tender, other (peg), soft Genitourinary - Male: nl penis, nl scrotum Musculoskeletal: nl extremities to inspection, swelling improved Extremities: cap refill 2 s Neurological: No nl speech, No nl strength (gen weakness) Skin: Femoral incision with dressing, sacral and left troch (with slough) pressure ulcers Lymph: No nl lymph nodes Results Result Diagram: 10/15/17 0822 10/15/17 0822 MART AMEZQUITA NP Oct 15, 2017 12:21
[2017-10-15] MEDS ORDERED: AMIKACIN IV PER PHARMACY XX SCH (14:00)
--- NOTE | 2017-10-15 14:50 | PN ---
DATE: 10/15/2017 SUBJECTIVE: The patient remains obtunded, hypothermic in no distress. LABORATORY DATA: WBC today 19.8, H and H 8.7 and 27.6, platelets 52, neutrophils 87.9. Sodium 134, potassium 4.2, BUN 66, creatinine 1.65. INDWELLINGS: Trach, PEG, Pathak, right chest PermCath and midline. DIAGNOSTICS: Chest x-ray this morning revealed diffuse reticular nodular interstitial opacities, ma y reflect edema or pneumonia, increased compared to prior examination. ANTIMICROBIALS: 1. Flagyl. 2. Cancidas. 3. Daptomycin. 4. Colistin. MICROBIOLOGY: Wound cultures of the sacrum grew Acinetobacter baumannii and VRE. Left hip wound cu lture grew Pseudomonas aeruginosa, Klebsiella pneumoniae. PHYSICAL EXAMINATION GENERAL: This is a chronically ill-appearing, elderly man who is lethargic, in no distress. HEENT: Head atraumatic, normocephalic. Sclerae anicteric. Buccal mucosa dry. NECK: Supple. Tracheostomy present. CHEST: Rise symmetrical. Breath sounds diminished to bases. HEART: S1, S2. ABDOMEN: Distended, soft. Bowel tones present EXTREMITIES: Hypoactive extremities with bilateral edema. SKIN: With severe anasarca, multiple wounds. ASSESSMENT: 1. Severe sepsis with multisystem organ failure. 2. 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 3. History of urinary tract infection. 4. Chronic encephalopathy. 5. Status post right femoral pseudoaneurysm repair. 6. History of deep venous thrombosis, status post inferior vena cava placement. 7. Atrial fibrillation. 8. Anemia. 9. Severe anasarca. PLAN: The patient is doing poorly. He is DNR status. He is being followed by multiple consultants . We are going to add amikacin to the regimen. Repeat cultures. Continue management as per primar y team and consultants. Dictated By: CLAYTON SHANKAR VP & GENERAL COUNSEL for CASSI TAVERAS/NORM Conf#: [id number] DID#: [id number]
[2017-10-15] MEDS ORDERED: AMIKACIN 300 MG in DEXTROSE 5% 100 ML IVPB SCH (15:00)
[2017-10-15] MEDS ORDERED: AMIKACIN 500 MG in DEXTROSE 5% 100 ML IVPB ONE (15:30)
[2017-10-15] MEDS: COLISTIMETHATE 75 MG in SOD CHLORIDE 0.9% 100 ML IVPB SCH (15:46)
--- NOTE | 2017-10-15 16:09 | CONS ---
Date/Time of Note Date/Time of Note DATE: 10/15/17 TIME: 16:07 Consult Date/Type/Reason Admit Date/Time Sep 27, 2017 at 21:00 Initial Consult Date 09/28/17 Type of Consultation: card Ordering Provider: PHILIPPE JUARES DO Subjective Cardiology follow up note S: D/ W staff and rhythm was reviewed. pt has converted to NSR no torsades overnight. pt remains lethargic and novnerbal now still on vent but out of ICU d/w . code statues is DNR now O: General: Thin. s/p trach on vent. no acute distress HEENT: NC/AT. pupils are equal. round. NECK: s/p trach. . no stridor. CV: RRR. systolic murmur; no gallop or rubs. PULM: no wheezing . + rhonchi. GI: SOFT, NT, ND, no rebound or guarding vascular: R fem s/p surgery Extremity: diffuse B/L LE and UE edema. . neuro: lethargic Psych: calm and pleasant rectal: deferred : normal male Derm: With diffuse ecchymosis throughout the body. CXR reviewed. ECHO: 1. Normal left ventricular systolic function. Normal left ventricular cavity size. Moderate concentric left ventricular hypertrophy. Ejection fraction is visually estimated at 65 %. Abnormal Diastolic Function. 2. Aortic sclerosis without stenosis. Objective Vital Signs Date Time Temp Pulse Resp B/P Pulse Ox O2 Delivery O2 Flow Rate FiO2 10/15/17 15:15 70 12 96 40 10/15/17 12:03 96.3 104/51 Intake and Output 10/14/17 10/14/17 10/15/17 14:59 22:59 06:59 Intake Total 400 ml 900 ml Output Total 1500 ml Balance -1100 ml 900 ml Results/Medications Result Diagram: 10/15/1782110/15/17 0822 Results 24 hrs Laboratory Tests Test 10/14/17 17:40 10/14/17 23:13 10/15/17 06:36 10/15/17 08:22 Bedside Glucose 110 158 147 White Blood Count 19.8 #H Red Blood Count 2.64 L Hemoglobin 8.7 L Hematocrit 27.6 L Mean Corpuscular Volume 104.5 H Mean Corpuscular Hemoglobin 33.0 Mean Corpuscular Hemoglobin Concent 31.5 L Red Cell Distribution Width 23.0 H Platelet Count 52 L Mean Platelet Volume Neutrophils % 87.9 H Lymphocytes % 0.6 L Monocytes % 8.0 Eosinophils % 0.5 Basophils % 0.1 Nucleated Red Blood Cells % 2.7 H Neutrophils # 17.4 H Lymphocytes # 0.1 L Monocytes # 1.6 H Eosinophils # 0.1 Basophils # 0.0 Nucleated Red Blood Cells # 0.5 H Sodium Level 134 L Potassium Level 4.2 Chloride Level 94 L Carbon Dioxide Level 30 Anion Gap 14 Blood Urea Nitrogen 66 H Creatinine 1.65 H Glucose Level 141 Calcium Level 8.0 L Phosphorus Level 4.5 Magnesium Level 2.6 H Test 10/15/17 12:33 Bedside Glucose 171 Medications Current Medications Hydromorphone HCl (Dilaudid) 0.5 mg Q4H PRN IV PAIN Last administered on 17:00; Admin Dose 0.5 MG; Start 09/27/17 at 23:00 Midodrine (Proamatine) 10 mg TID@, GTB Last administered on 10/15/17 12:37; Admin Dose 10 MG; Start 09/28/17 at 09:00 Ascorbic Acid (Vitamin C) 500 mg DAILY GTB Last administered on 10/15/17 10: 20; Admin Dose 500 MG; Start 09/28/17 at 09:00 Cholecalciferol (Vitamin D) 2,000 unit DAILY GTB Last administered on 10:21; Admin Dose 2,000 UNIT; Start 09/28/17 at 09:00 Ferrous Sulfate (Feosol Liquid Cup) 300 mg DAILY GTB Last administered on 10/15 10:20; Admin Dose 300 MG; Start 09/28/17 at 09:00 Folic Acid (Folic Acid) 1 mg DAILY GTB Last administered on 10/15/17 10:20; Admin Dose 1 MG; Start 09/28/17 at 09:00 Acetaminophen/ Hydrocodone Bitart ([place] (5/325)) 1 tab DAILY GTB Last administered on 09/30/17 09:34; Admin Dose 1 TAB; Start 09/28/17 at 09:00; Status Future Hold Lactobacillus Acidophilus/ Rhamnosus (Culturelle) 1 cap BID GTB Last administered on 10/15/17 09:00; Admin Dose 1 CAP; Start 09/28/17 at 09:00 Sertraline HCl (Zoloft) 25 mg QHS GTB Last administered on 10/14/17 21:14; Admin Dose 25 MG; Start 09/28/17 at 21:00 Tramadol HCl (Ultram) 50 mg DAILY PRN GTB FOR WOUND CARE; Start 09/28/17 at 08 :00; Status Future Hold Tramadol HCl (Ultram) 50 mg Q8 GTB Last administered on 10/15/17 06:31; Admin Dose 50 MG; Start 09/28/17 at 14:00 Zolpidem Tartrate (Ambien) 5 mg QHS PRN GTB INSOMNIA; Start 09/28/17 at 08:00 Diagnostic Test (Pha) (Accu-Chek) 1 ea 02 XX Last administered on 10/08/17 01 :31; Admin Dose 1 EA; Start 09/29/17 at 02:00 Collagenase (Santyl) 1 applic DAILY TOP Last administered on 10/15/17 10:20; Admin Dose 1 APPLIC; Start 09/29/17 at 12:00 Docusate Sodium (Colace Liquid Cup) 100 mg BID GTB Last administered on 10:20; Admin Dose 100 MG; Start 09/30/17 at 21:00 Multivitamins/ Minerals (Theragran-M) 1 tab DAILY GTB Last administered on 10:21; Admin Dose 1 TAB; Start 09/30/17 at 10:00 Lansoprazole (Prevacid) 30 mg DAILY@06 GTB Last administered on 10/15/17 06: 32; Admin Dose 30 MG; Start 09/30/17 at 12:15 Hydrogen Peroxide (Hydrogen Peroxide) 1 applic BID TOP Last administered on 10:20; Admin Dose 1 APPLIC; Start 09/30/17 at 21:00 Heparin Sodium (Porcine) (Heparin (5000 Units/0.5 ml)) 5,000 unit BID SC Last administered on 10/15/17 10:52; Admin Dose 5,000 UNIT; Start 10/01/17 at 21: 00 Brimonidine Tartrate (Alphagan P 0.1%) 1 drop BID BOTH EYES Last administered on 10/15/17 10:22; Admin Dose 1 DROP; Start 10/03/17 at 21:00 Silver Sulfadiazine 1 applic 1 applic DAILY TOP Last administered on 10:22; Admin Dose 1 APPLIC; Start 10/05/17 at 11:00 Daptomycin 290 mg/ Sodium Chloride 100 ml @ 200 mls/hr Q48H IVPB Last administered on 10/14/17 17:31; Admin Dose 200 MLS/HR; Start 10/08/17 at 18: 00 Colistimethate Sodium/Sodium Chloride (Coly-Mycin/NS) 100 ml @ 200 mls/hr Q24H IVPB Last administered on 10/15/17 15:46; Admin Dose 200 MLS/HR; Start 10/08 at 15:00 Hydrocortisone (Solu-Cortef) 25 mg Q8 IV Last administered on 10/15/17 15:29 ; Admin Dose 25 MG; Start 10/10/17 at 14:00 Insulin Aspart (Novolog Insulin Pen) NOVOLOG *MILD* ALGORITHM Q6 SC Last administered on 10/15/17 12:36; Admin Dose 1 UNIT; Start 10/12/17 at 12:00 Miscellaneous Information 1 ea NOTE XX ; Start 10/14/17 at 10:30 Glucose (Glutose) 15 gm Q15M PRN PO DECREASED GLUCOSE; Start 10/14/17 at 10:30 Glucose (Glutose) 22.5 gm Q15M PRN PO DECREASED GLUCOSE; Start 10/14/17 at 10: 30 Dextrose (D50w Syringe) 25 ml Q15M PRN IV DECREASED GLUCOSE; Start 10/14/17 at 10:30 Dextrose (D50w Syringe) 50 ml Q15M PRN IV DECREASED GLUCOSE; Start 10/14/17 at 10:30 Glucagon (Glucagen) 1 mg Q15M PRN IM DECREASED GLUCOSE; Start 10/14/17 at 10: 30 Glucose (Glutose) 15 gm Q15M PRN BUCCAL DECREASED GLUCOSE; Start 10/14/17 at 10:30 Metronidazole 250 mg 250 mg Q8 GTB Last administered on 10/15/17 15:28; Admin Dose 250 MG; Start 10/14/17 at 16:00 Caspofungin/ Sodium Chloride (Cancidas/NS) 250 ml @ 250 mls/hr Q24H IVPB ; Start 10/15/17 at 16:00 Amikacin Sulfate AMIKACIN PER PHARMACY NOTE XX ; Start 10/15/17 at 14:00 Amikacin Sulfate/ Dextrose (Amikacin/D5W) 102 ml @ 102 mls/hr ONCE ONCE IVPB ; Start 10/15/17 at 15:30; Stop 10/15/17 at 16:29 Assessment/Plan Chief Complaint/Hosp Course 1. S/P septic SHOCK: BP is better now and off of pressors. 2. P-Afib: pt has converted to NSR now. 3. hypoxemic resp failure: s/p trach vent dependent now. 4. hx anemia and GI bleed: off of any anticoagulation 5. 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 s/p multiple infections 8. dysphagia: s/p PEG 9. encephalopathy: 10. fluid overload/ CHF/ anasarca: ACUTE on chronic due to fluid overload and diastolic failure. 11. Ventricular arrhythmia and PVC/ VT and even torsades: not a good candidate for amiodarone due to prolonged QT and episodes of torsades and bradycardia now . Recommendations: Vent support will be continued for now. Hemodialysis will be managed by nephrology team .correction of electrolytes with assistance of HD fluid management with HD as tolerated. cont Heart rate control Transfusion prn has been given. Patient currently off of full anticoagulation due to concern about history of severe anemia as well as GI bleed and OB positive stool. prognosis is poor code is DNR now will check ECG Thank you for his referral. I will continue to follow along with you. DIOR JEFFERSON MD [facility] Problems: DIOR JEFFERSON MD Oct 15, 2017 16:09
[2017-10-15] MEDS: CASPOFUNGIN 50 MG in SOD CHLORIDE 0.9% 250 ML IVPB SCH (17:20)
[2017-10-15] MEDS: SERTRALINE 50 MG TAB GTB SCH (21:00)
[2017-10-16] VITALS (57 sets, daily range): BP systolic 36–107; BP diastolic 14–64; PULSE 0–82; RESP 0–20
[2017-10-16] MEDS: ACCU-CHEK XX SCH (02:00)
[2017-10-16] MEDS: metroNIDAZOLE 250 MG TAB GTB SCH ×3 (05:36→22:00)
[2017-10-16] MEDS: LANSOPRAZOLE 30 MG CAP GTB SCH (05:37)
[2017-10-16] MEDS: HYDROCORTISONE 100 MG INJ IV SCH ×3 (05:38→22:07)
[2017-10-16] MEDS: INSULIN ASPART [NOVOLOG] 3 ML PEN SC SCH ×4 (05:40→17:28)
[2017-10-16] MEDS: traMADol 50 MG TAB GTB SCH ×3 (05:45→22:00)
[2017-10-16] MEDS: FERROUS SULFATE 60 MG/ML 5ML CUP GTB SCH (08:20)
[2017-10-16] MEDS: ASCORBIC ACID 500 MG TAB GTB SCH (08:20)
[2017-10-16] MEDS: CHOLECALCIFEROL 2,000 UNIT CAP GTB SCH (08:20)
[2017-10-16] MEDS: LACTOBACILLUS RHAMNOSUS CAP GTB SCH ×2 (08:20→20:10)
[2017-10-16] MEDS: MULTIVITAMINS/MINERALS TAB GTB SCH (08:20)
[2017-10-16] MEDS: FOLIC ACID 1 MG TAB GTB SCH (08:20)
[2017-10-16] MEDS: MIDODRINE 5 MG TAB GTB SCH ×3 (08:20→16:56)
[2017-10-16] MEDS: HEPARIN 5,000 UNIT/0.5 ML VIAL SC SCH ×2 (08:21→20:11)
[2017-10-16] MEDS: DOCUSATE SODIUM 10 MG/ML (10ML CUP) GTB SCH ×2 (08:21→20:10)
[2017-10-16] MEDS: BRIMONIDINE 0.1% 5 ML OPH BOTH EYES SCH ×2 (08:22→20:10)
[2017-10-16 08:54] LABS: ABNORMAL IP MESSAGE 1; BASOPHILS % 0.1 % (0.0-2.0); EOSINOPHILS % 0.1 % (0.0-7.0); HEMATOCRIT 25.1 % (42.0-52.0); HEMOGLOBIN 7.9 g/dl (14.0-18.0); MEAN CORPUSCULAR HEMOGLOBIN 33.1 pg (29.0-33.0); MEAN CORPUSCULAR HGB CONC 31.5 g/dl (32.0-37.0); MONOCYTE # 1.3 10^3/ul (0.3-0.9); MONOCYTES % 7.1 % (0.0-11.0); NEUTROPHIL # 17.1 10^3/ul (1.6-7.5); NEUTROPHILS % 90.2 % (39.0-77.0); NUCLEATED RED BLOOD CELLS # 1.3 10^3/ul (0.0-0.0); PLATELET COUNT 48 10^3/UL (140-415); POSITIVE DIFF @See below; RED BLOOD COUNT 2.39 10^6/ul (4.70-6.10)
--- NOTE | 2017-10-16 08:56 | PN ---
Date/Time of Note Date/Time of Note DATE: 10/16/17 TIME: 08:52 Assessment/Plan Lines/Catheters IV Catheter Type (from [facility]): PERMACATH Pathak in Place (from [facility]): No Assessment/Plan Chief Complaint/Hosp Course 1. Hypotension, sepsis: transfer pending to ICU -supportive -judicious fluids -consider hospice/comfort measures - d/w 2. Sacral & left trochanter pressure ulcers: -debridement prn -local care -frequent turning and off-loading -low air loss mattress -vitamin c -short term zinc -optimize nutrition 3. 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 End-stage renal disease -HD per renal -avoid/limit nephrotoxic meds -judicious fluids -renally dose meds 5. Anemia: no acute bleed noted -closely monitor surgical site -transfuse as needed 6. Atrial fibrillation: now SR -cards optimization 7. Dysphagia with feeding tube: on tube feeds -cont tf with aspiration precautions 8. Leukocytosis: afebrile; repeat cultures pending -monitor -further workup if persistent 9. Thrombocytosis -supportive 10. Hypoalbuminemia: likely multifactorial -optimize nutrition -medical management of inflammation/infection 11. Electrolyte imbalance -optimize lytes and monitor 12. Ventilator dependent respiratory failure with increased pl effusion; edema vs. pna -per pulm -pulm toilet -respiratory treatments ?abx 13. Encephalopathy: -supportive Thank you. Patient seen and examined in collaboration with Dr. Ho Lua. Problems: Subjective 24 Hr Interval Summary BP low. Pending transfer to ICU. Ventilated. No fevers, chills, sob, congested cough, cp, palpitations, reyes, dizziness, n/v/d/dysuria. Exam/Review of Systems Vital Signs Vitals Vital Signs Date Time Temp Pulse Resp B/P Pulse Ox O2 Delivery O2 Flow Rate FiO2 10/16/17 08:00 68 10/16/17 07:48 98.3 17 76/38 93 10/16/17 07:30 40 10/16/17 04:00 Mechanical Ventilator Intake and Output 10/15/17 10/15/17 10/16/17 15:00 23:00 07:00 Intake Total 800 ml 800 ml Balance 800 ml 800 ml Exam Free Text/Dictation Constitutional: Not following commands, ventilated Psych: lethargic, non responsive Head: atraumatic, normocephalic Eyes: nl lids, nl sclera ENMT: mucosa pink and dry, nl nasal mucosa & septum Neck: non-tender, other (trach-vent), supple Respiratory: diminished breath sounds, No labored breathing Cardiovascular: rrr, sr Gastrointestinal: non-tender, other (peg), soft, rotund Genitourinary - Male: nl penis, nl scrotum Musculoskeletal: nl extremities to inspection, swelling improved Extremities: cap refill 2 s Neurological: No nl speech, No nl strength (gen weakness) Skin: Femoral incision with dressing, sacral and left troch (with slough) pressure ulcers Lymph: No nl lymph nodes Results Result Diagram: 10/15/1782110/15/17 0822 MART AMEZQUITA NP Oct 16, 2017 08:56
[2017-10-16] MEDS ORDERED: SOD CHLORIDE 0.9% 1,000 ML IV ONE (09:00)
--- NOTE | 2017-10-16 09:05 | PN ---
DATE: 10/16/2017 SUBJECTIVE: The patient is lethargic and unresponsive, currently at baseline. No other events note d. OBJECTIVE: VITAL SIGNS: Blood pressure 76/38, respirations 17, pulse 70, temperature 98.3. HEENT: Head is normocephalic. NECK: Supple. HEART: Regular rate. LUNGS: Show diminished breath sounds at the base. ABDOMEN: Soft, nontender to palpation. No rebound or guarding. EXTREMITIES: Negative for clubbing, cyanosis. Diffuse anasarca. DERMATOLOGIC: No rashes. MUSCULOSKELETAL: No joint effusions. NEUROLOGICAL: The patient remains obtunded. LABORATORY DATA: From 10/16/2017 is pending. Laboratory data from 09/14/2017 was reviewed. ASSESSMENT AND PLAN: 1. Sepsis secondary to pneumonia. The patient has currently completed antibiotic course. Repeat C BC shows elevated white count. The patient was reintroduced on antibiotic therapy, antifungal thera py. We will monitor closely. Follow up with infectious disease. 2. Hypertension. Etiology is multifactorial, possible underlying sepsis. Continue midodrine. Santos l minimize ultrafiltration dialysis. Continue current antibiotic regimen and monitor closely. 3. Ventilator dependent respiratory failure. Vent settings and ABG is reviewed. Continue to monit or. 4. Right leg pseudoaneurysm status post surgical correction. 5. Acute encephalopathy on top of dementia. Etiology is toxic metabolic. 6. End-stage renal disease. Patient is scheduled for dialysis today. 7. Hypokalemia, improved. 8. Volume overload secondary to congestive heart failure, end-stage renal disease. Continue ultraf iltration dialysis as hemodynamically tolerated. 9. Mineral bone disorder. Monitor calcium and phosphorus levels. 10. Dysphagia, status post percutaneous endoscopic gastrostomy. Continue tube feeding. 11. Decubitus wound. Continue wound care. 12. Thrombocytopenia. Continue to monitor. 13. Gastrointestinal and deep vein thrombosis prophylaxis. Dictated By: PHILIPPE WILSON/NTS Conf#: [id number] DID#: [id number]
[2017-10-16 09:19] LABS: CALCIUM 8.1 mg/dl (8.4-10.2); CREATININE 1.89 mg/dl (0.61-1.24); MAGNESIUM 2.8 mg/dl (1.7-2.5); PHOSPHORUS 4.5 mg/dl (2.5-4.9); POTASSIUM 4.3 mmol/L (3.5-5.1)
[2017-10-16] MEDS ORDERED: NORepinephrine 8MG/250 ML (PMX 250 ML ONE (09:31)
[2017-10-16] MEDS ORDERED: SOD CHLORIDE 0.9% 250 ML IV* ONE (09:52)
[2017-10-16] MEDS: HYDROGEN PEROXIDE 118 ML TOP SCH ×2 (10:20→20:11)
[2017-10-16] MEDS: COLLAGENASE 30 GM TUBE TOP SCH (10:20)
--- NOTE | 2017-10-16 10:20 | CONS ---
Date/Time of Note Date/Time of Note DATE: 10/16/17 TIME: 10:19 Consult Date/Type/Reason Admit Date/Time Sep 27, 2017 at 21:00 Initial Consult Date 09/28/17 Type of Consultation: Pulm Ordering Provider: PHILIPPE JUARES Transferred to ICU. Objective Vital Signs Date Time Temp Pulse Resp B/P Pulse Ox O2 Delivery O2 Flow Rate FiO2 10/16/17 10:00 97.0 55 14 69/25 100 Mechanical Ventilator 10/16/17 08:00 40 Intake and Output 10/15/17 10/15/17 10/16/17 15:00 23:00 07:00 Intake Total 800 ml 800 ml Balance 800 ml 800 ml Exam GENERAL: Elderly gentleman comfortable at rest on mechanical ventilation. VITAL SIGNS: per chart NECK: Supple. No JVD or lymphadenopathy. CARDIAC EXAM: S1, S2. No added sounds or murmurs. CHEST: clear bilaterally, No added sounds, rales or wheezes ABDOMEN: Soft, nontender. No guarding or rebound. EXTREMITIES: No cyanosis, clubbing or edema. NEUROLOGIC: Unable to assess. Results/Medications Result Diagram: 10/16/17 0739 10/16/17 0739 Results 24 hrs Laboratory Tests Test 10/15/17 12:33 10/15/17 17:54 10/16/17 00:28 10/16/17 05:40 Bedside Glucose 171 175 164 141 Test 10/16/17 07:39 White Blood Count 19.0 H Red Blood Count 2.39 L Hemoglobin 7.9 L Hematocrit 25.1 L Mean Corpuscular Volume 105.0 H Mean Corpuscular Hemoglobin 33.1 H Mean Corpuscular Hemoglobin Concent 31.5 L Red Cell Distribution Width 23.0 H Platelet Count 48 L Mean Platelet Volume Neutrophils % 90.2 H Lymphocytes % 0.0 L Monocytes % 7.1 Eosinophils % 0.1 Basophils % 0.1 Nucleated Red Blood Cells % 7.0 H Neutrophils # 17.1 H Lymphocytes # 0.0 L Monocytes # 1.3 H Eosinophils # 0.0 Basophils # 0.0 Nucleated Red Blood Cells # 1.3 H Sodium Level 134 L Potassium Level 4.3 Chloride Level 95 L Carbon Dioxide Level 31 Anion Gap 12 Blood Urea Nitrogen 83 H Creatinine 1.89 H Glucose Level 102 Calcium Level 8.1 L Phosphorus Level 4.5 Magnesium Level 2.8 H Medications Current Medications Hydromorphone HCl (Dilaudid) 0.5 mg Q4H PRN IV PAIN Last administered on 17:00; Admin Dose 0.5 MG; Start 09/27/17 at 23:00 Midodrine (Proamatine) 10 mg TID@,, GTB Last administered on 10/16/17 08:20; Admin Dose 10 MG; Start 09/28/17 at 09:00 Ascorbic Acid (Vitamin C) 500 mg DAILY GTB Last administered on 10/16/17 08: 20; Admin Dose 500 MG; Start 09/28/17 at 09:00 Cholecalciferol (Vitamin D) 2,000 unit DAILY GTB Last administered on 08:20; Admin Dose 2,000 UNIT; Start 09/28/17 at 09:00 Ferrous Sulfate (Feosol Liquid Cup) 300 mg DAILY GTB Last administered on 10/16 08:20; Admin Dose 300 MG; Start 09/28/17 at 09:00 Folic Acid (Folic Acid) 1 mg DAILY GTB Last administered on 10/16/17 08:20; Admin Dose 1 MG; Start 09/28/17 at 09:00 Lactobacillus Acidophilus/ Rhamnosus (Culturelle) 1 cap BID GTB Last administered on 10/16/17 08:20; Admin Dose 1 CAP; Start 09/28/17 at 09:00 Sertraline HCl (Zoloft) 25 mg QHS GTB Last administered on 10/15/17 21:00; Admin Dose 25 MG; Start 09/28/17 at 21:00 Tramadol HCl (Ultram) 50 mg Q8 GTB Last administered on 10/16/17 05:45; Admin Dose 50 MG; Start 09/28/17 at 14:00 Zolpidem Tartrate (Ambien) 5 mg QHS PRN GTB INSOMNIA; Start 09/28/17 at 08:00 Diagnostic Test (Pha) (Accu-Chek) 1 ea 02 XX Last administered on 10/08/17 01 :31; Admin Dose 1 EA; Start 09/29/17 at 02:00 Collagenase (Santyl) 1 applic DAILY TOP Last administered on 10/15/17 10:20; Admin Dose 1 APPLIC; Start 09/29/17 at 12:00 Docusate Sodium (Colace Liquid Cup) 100 mg BID GTB Last administered on 08:21; Admin Dose 100 MG; Start 09/30/17 at 21:00 Multivitamins/ Minerals (Theragran-M) 1 tab DAILY GTB Last administered on 08:20; Admin Dose 1 TAB; Start 09/30/17 at 10:00 Lansoprazole (Prevacid) 30 mg DAILY@06 GTB Last administered on 10/16/17 05: 37; Admin Dose 30 MG; Start 09/30/17 at 12:15 Hydrogen Peroxide (Hydrogen Peroxide) 1 applic BID TOP Last administered on 21:03; Admin Dose 1 APPLIC; Start 09/30/17 at 21:00 Heparin Sodium (Porcine) (Heparin (5000 Units/0.5 ml)) 5,000 unit BID SC Last administered on 10/16/17 08:21; Admin Dose 5,000 UNIT; Start 10/01/17 at 21: 00 Brimonidine Tartrate (Alphagan P 0.1%) 1 drop BID BOTH EYES Last administered on 10/16/17 08:22; Admin Dose 1 DROP; Start 10/03/17 at 21:00 Silver Sulfadiazine 1 applic 1 applic DAILY TOP Last administered on 10:22; Admin Dose 1 APPLIC; Start 10/05/17 at 11:00 Daptomycin 290 mg/ Sodium Chloride 100 ml @ 200 mls/hr Q48H IVPB Last administered on 10/14/17 17:31; Admin Dose 200 MLS/HR; Start 10/08/17 at 18: 00 Colistimethate Sodium/Sodium Chloride (Coly-Mycin/NS) 100 ml @ 200 mls/hr Q24H IVPB Last administered on 10/15/17 15:46; Admin Dose 200 MLS/HR; Start 10/08 at 15:00 Hydrocortisone (Solu-Cortef) 25 mg Q8 IV Last administered on 10/16/17 05:38 ; Admin Dose 25 MG; Start 10/10/17 at 14:00 Insulin Aspart (Novolog Insulin Pen) NOVOLOG *MILD* ALGORITHM Q6 SC Last administered on 10/15/17 17:56; Admin Dose 1 UNIT; Start 10/12/17 at 12:00 Miscellaneous Information 1 ea NOTE XX ; Start 10/14/17 at 10:30 Glucose (Glutose) 15 gm Q15M PRN PO DECREASED GLUCOSE; Start 10/14/17 at 10:30 Glucose (Glutose) 22.5 gm Q15M PRN PO DECREASED GLUCOSE; Start 10/14/17 at 10: 30 Dextrose (D50w Syringe) 25 ml Q15M PRN IV DECREASED GLUCOSE; Start 10/14/17 at 10:30 Dextrose (D50w Syringe) 50 ml Q15M PRN IV DECREASED GLUCOSE; Start 10/14/17 at 10:30 Glucagon (Glucagen) 1 mg Q15M PRN IM DECREASED GLUCOSE; Start 10/14/17 at 10: 30 Glucose (Glutose) 15 gm Q15M PRN BUCCAL DECREASED GLUCOSE; Start 10/14/17 at 10:30 Metronidazole 250 mg 250 mg Q8 GTB Last administered on 10/16/17 05:36; Admin Dose 250 MG; Start 10/14/17 at 16:00 Caspofungin/ Sodium Chloride (Cancidas/NS) 250 ml @ 250 mls/hr Q24H IVPB Last administered on 10/15/17 17:20; Admin Dose 250 MLS/HR; Start 10/15/17 at 16: 00 Amikacin Sulfate (Amikacin Iv Per Pharmacy) AMIKACIN PER PHARMACY NOTE XX ; Start 10/15/17 at 14:00 Assessment/Plan Chief Complaint/Hosp Course Assessment 1. Patient admitted for repair of right femoral artery pseudoaneurysm status post repair. 2. Septic shock, requiring pressors. 3. Dysphagia with G-tube 4. End-stage renal failure on hemodialysis 5. Idiopathic pulmonary fibrosis. Chronic respiratory failure on mechanical ventilation 6. Encephalopathy possible toxic metabolic. CT head demonstrates no acute intracranial pathology. Plan 1. Continue mechanical ventilation, head of bed elevation aspiration precautions. 2. Continue antibiotics decrease steroids 3. Tube feeding as tolerated 4. Hemodialysis as tolerated 5. Continue antibiotics consider palliative care, prognosis very poor. Problems: ANGELINA TRUJILLO MD, [facility] Oct 16, 2017 10:20
[2017-10-16] MEDS: SILVER SULFADIAZINE 1% 25 GM CR TOP SCH (10:21)
[2017-10-16] MEDS: NORepinephrine 8MG/250 ML (PMX 250 ML IV SCH ×2 (11:08→13:56)
[2017-10-16] MEDS ORDERED: VASOPRESSIN 60 UNIT in DEXTROSE 5% 57 ML IV SCH (12:00)
[2017-10-16] MEDS ORDERED: PHENYLephrine 40 MG in DEXTROSE 5% 496 ML IV SCH (12:00)
--- NOTE | 2017-10-16 13:55 | CONS ---
Date/Time of Note Date/Time of Note DATE: 10/16/17 TIME: 13:51 Assessment/Plan Assessment/Plan Chief Complaint/Hosp Course SUBJECTIVE: Tx to ICU 2 to shock, hypotensive, on multiple pressors, remains noncommunicative INDWELLINGS: Trach, PEG, [place], right chest PermCath and midline. ANTIMICROBIALS: 1. Flagyl. 2. Cancidas. 3. Daptomycin. 4. Colistin. 5. Amikacin MICROBIOLOGY: Wound cultures of the sacrum grew Acinetobacter baumannii and VRE. Left hip wound culture grew Pseudomonas aeruginosa, Klebsiella pneumoniae. PHYSICAL EXAMINATION GENERAL: This is a chronically ill-appearing, elderly man who is lethargic, in no distress. HEENT: Head atraumatic, normocephalic. Sclerae anicteric. Buccal mucosa dry. NECK: Supple. Tracheostomy present. CHEST: Rise symmetrical. Breath sounds diminished to bases. HEART: S1, S2. ABDOMEN: Distended, soft. Bowel tones present EXTREMITIES: Hypoactive extremities with bilateral edema. SKIN: With severe anasarca, multiple wounds. ASSESSMENT: 1. Severe sepsis with shock and multisystem organ failure. 2. 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 3. History of urinary tract infection. 4. Chronic encephalopathy. 5. Status post right femoral pseudoaneurysm repair. 6. History of deep venous thrombosis, status post inferior vena cava placement. 7. Atrial fibrillation. 8. Anemia. 9. Severe anasarca. PLAN: The patient is doing poorly. Will change Daptomycin to Zyvox, continue other abx, continue present care, prognosis very poor. DW at bedside Problems: Consultation Date/Type/Reason Admit Date/Time Sep 27, 2017 at 21:00 Initial Consult Date 09/28/17 Type of Consultation: id Referring Provider: PHILIPPE JUARES DO Exam/Review of Systems Vital Signs Vitals Vital Signs Date Time Temp Pulse Resp B/P Pulse Ox O2 Delivery O2 Flow Rate FiO2 10/16/17 13:15 61 12 83/26 100 Mechanical Ventilator 10/16/17 12:00 97.3 10/16/17 11:40 40 Intake and Output 10/15/17 10/15/17 10/16/17 15:00 23:00 07:00 Intake Total 800 ml 800 ml Balance 800 ml 800 ml Results Result Diagram: 10/16/17 0739 10/16/17 0739 Results 24 hrs Laboratory Tests Test 10/15/17 17:54 10/16/17 00:28 10/16/17 05:40 10/16/17 07:39 Bedside Glucose 175 164 141 White Blood Count 19.0 H Red Blood Count 2.39 L Hemoglobin 7.9 L Hematocrit 25.1 L Mean Corpuscular Volume 105.0 H Mean Corpuscular Hemoglobin 33.1 H Mean Corpuscular Hemoglobin Concent 31.5 L Red Cell Distribution Width 23.0 H Platelet Count 48 L Mean Platelet Volume Neutrophils % 90.2 H Lymphocytes % 0.0 L Monocytes % 7.1 Eosinophils % 0.1 Basophils % 0.1 Nucleated Red Blood Cells % 7.0 H Neutrophils # 17.1 H Lymphocytes # 0.0 L Monocytes # 1.3 H Eosinophils # 0.0 Basophils # 0.0 Nucleated Red Blood Cells # 1.3 H Sodium Level 134 L Potassium Level 4.3 Chloride Level 95 L Carbon Dioxide Level 31 Anion Gap 12 Blood Urea Nitrogen 83 H Creatinine 1.89 H Glucose Level 102 Calcium Level 8.1 L Phosphorus Level 4.5 Magnesium Level 2.8 H Test 10/16/17 11:27 10/16/17 11:28 Bedside Glucose 77 79 Medications Medications Current Medications Hydromorphone HCl (Dilaudid) 0.5 mg Q4H PRN IV PAIN Last administered on 17:00; Admin Dose 0.5 MG; Start 09/27/17 at 23:00 Midodrine (Proamatine) 10 mg TID@ GTB Last administered on 10/16/17 13:11; Admin Dose 10 MG; Start 09/28/17 at 09:00 Ascorbic Acid (Vitamin C) 500 mg DAILY GTB Last administered on 10/16/17 08: 20; Admin Dose 500 MG; Start 09/28/17 at 09:00 Cholecalciferol (Vitamin D) 2,000 unit DAILY GTB Last administered on 08:20; Admin Dose 2,000 UNIT; Start 09/28/17 at 09:00 Ferrous Sulfate (Feosol Liquid Cup) 300 mg DAILY GTB Last administered on 10/16 08:20; Admin Dose 300 MG; Start 09/28/17 at 09:00 Folic Acid (Folic Acid) 1 mg DAILY GTB Last administered on 10/16/17 08:20; Admin Dose 1 MG; Start 09/28/17 at 09:00 Lactobacillus Acidophilus/ Rhamnosus (Culturelle) 1 cap BID GTB Last administered on 10/16/17 08:20; Admin Dose 1 CAP; Start 09/28/17 at 09:00 Sertraline HCl (Zoloft) 25 mg QHS GTB Last administered on 10/15/17 21:00; Admin Dose 25 MG; Start 09/28/17 at 21:00 Tramadol HCl (Ultram) 50 mg Q8 GTB Last administered on 10/16/17 05:45; Admin Dose 50 MG; Start 09/28/17 at 14:00 Zolpidem Tartrate (Ambien) 5 mg QHS PRN GTB INSOMNIA; Start 09/28/17 at 08:00 Diagnostic Test (Pha) (Accu-Chek) 1 ea 02 XX Last administered on 10/08/17 01 :31; Admin Dose 1 EA; Start 09/29/17 at 02:00 Collagenase (Santyl) 1 applic DAILY TOP Last administered on 10/16/17 10:20; Admin Dose 1 APPLIC; Start 09/29/17 at 12:00 Docusate Sodium (Colace Liquid Cup) 100 mg BID GTB Last administered on 08:21; Admin Dose 100 MG; Start 09/30/17 at 21:00 Multivitamins/ Minerals (Theragran-M) 1 tab DAILY GTB Last administered on 08:20; Admin Dose 1 TAB; Start 09/30/17 at 10:00 Lansoprazole (Prevacid) 30 mg DAILY@06 GTB Last administered on 10/16/17 05: 37; Admin Dose 30 MG; Start 09/30/17 at 12:15 Hydrogen Peroxide (Hydrogen Peroxide) 1 applic BID TOP Last administered on 10:20; Admin Dose 1 APPLIC; Start 09/30/17 at 21:00 Heparin Sodium (Porcine) (Heparin (5000 Units/0.5 ml)) 5,000 unit BID SC Last administered on 10/16/17 08:21; Admin Dose 5,000 UNIT; Start 10/01/17 at 21: 00 Brimonidine Tartrate (Alphagan P 0.1%) 1 drop BID BOTH EYES Last administered on 10/16/17 08:22; Admin Dose 1 DROP; Start 10/03/17 at 21:00 Silver Sulfadiazine 1 applic 1 applic DAILY TOP Last administered on 10:21; Admin Dose 1 APPLIC; Start 10/05/17 at 11:00 Daptomycin 290 mg/ Sodium Chloride 100 ml @ 200 mls/hr Q48H IVPB Last administered on 10/14/17 17:31; Admin Dose 200 MLS/HR; Start 10/08/17 at 18: 00 Colistimethate Sodium/Sodium Chloride (Coly-Mycin/NS) 100 ml @ 200 mls/hr Q24H IVPB Last administered on 10/15/17 15:46; Admin Dose 200 MLS/HR; Start 10/08 at 15:00 Hydrocortisone (Solu-Cortef) 25 mg Q8 IV Last administered on 10/16/17 13:05 ; Admin Dose 25 MG; Start 10/10/17 at 14:00 Insulin Aspart (Novolog Insulin Pen) NOVOLOG *MILD* ALGORITHM Q6 SC Last administered on 10/15/17 17:56; Admin Dose 1 UNIT; Start 10/12/17 at 12:00 Miscellaneous Information 1 ea NOTE XX ; Start 10/14/17 at 10:30 Glucose (Glutose) 15 gm Q15M PRN PO DECREASED GLUCOSE; Start 10/14/17 at 10:30 Glucose (Glutose) 22.5 gm Q15M PRN PO DECREASED GLUCOSE; Start 10/14/17 at 10: 30 Dextrose (D50w Syringe) 25 ml Q15M PRN IV DECREASED GLUCOSE; Start 10/14/17 at 10:30 Dextrose (D50w Syringe) 50 ml Q15M PRN IV DECREASED GLUCOSE; Start 10/14/17 at 10:30 Glucagon (Glucagen) 1 mg Q15M PRN IM DECREASED GLUCOSE; Start 10/14/17 at 10: 30 Glucose (Glutose) 15 gm Q15M PRN BUCCAL DECREASED GLUCOSE; Start 10/14/17 at 10:30 Metronidazole 250 mg 250 mg Q8 GTB Last administered on 10/16/17 13:05; Admin Dose 250 MG; Start 10/14/17 at 16:00 Caspofungin/ Sodium Chloride (Cancidas/NS) 250 ml @ 250 mls/hr Q24H IVPB Last administered on 10/15/17 17:20; Admin Dose 250 MLS/HR; Start 10/15/17 at 16: 00 Amikacin Sulfate AMIKACIN PER PHARMACY NOTE XX ; Start 10/15/17 at 14:00 Norepinephrine 250 ml @ 1.875 mls/ hr TITRATE IV Last administered on 11:08; Admin Dose 56.25 MLS/HR; Start 10/16/17 at 11:00 Vasopressin 60 unit/Dextrose 60 ml @ 1.2 mls/hr Q12H IV Last administered on 10/16/17 12:06; Admin Dose 1.2 MLS/HR; Start 10/16/17 at 12:00 Phenylephrine HCl/ Dextrose (Erwin-Syneph/D5W) 500 ml @ 18.75 mls/ hr TITRATE IV ; Start 10/16/17 at 14:30 CLAYTON SHANKAR NP Oct 16, 2017 13:55
[2017-10-16] MEDS: LINEZOLID 600 MG/D5W (PMX) 300 ML IVPB SCH ×3 (14:00→20:11)
--- NOTE | 2017-10-16 14:27 | RADRPT ---
Vent Rate: 67 bpm RR Interval: 0 msec UT Interval: 198 msec QRS Duration: 94 msec QT Interval: 330 msec QTC Interval: 348 msec P-R-T Olga: 18 - 32 - 0 degrees Normal sinus rhythm Nonspecific ST and T wave abnormality Abnormal ECG Electronically Signed By: Ted Guidry [id number]
[2017-10-16] MEDS ORDERED: PHENYLephrine 160 MG in DEXTROSE 5% 484 ML IV SCH (14:30)
--- NOTE | 2017-10-16 14:57 | CONS ---
Date/Time of Note Date/Time of Note DATE: 10/16/17 TIME: 14:53 Consult Date/Type/Reason Admit Date/Time Sep 27, 2017 at 21:00 Initial Consult Date 09/28/17 Type of Consultation: card Ordering Provider: PHILIPPE JUARES DO Subjective Cardiology follow up note/ critical care note: S: D/ W staff and rhythm was reviewed. pt remains in sinus maude/ junctional rhythm. d/w and sons. pt with worsening bradycardia and is on 3 different pressors now in ICU/ pt remains lethargic and novnerbal now still on vent and in ICU d/w . code statues is DNR now O: General: Thin. s/p trach on vent. no acute distress HEENT: NC/AT. pupils are equal. round. NECK: s/p trach. . no stridor. CV: RRR. systolic murmur; no gallop or rubs. PULM: no wheezing . + rhonchi. GI: SOFT, NT, ND, no rebound or guarding vascular: R fem s/p surgery Extremity: diffuse B/L LE and UE edema. . neuro: lethargic Psych: calm and pleasant rectal: deferred : normal male Derm: With diffuse ecchymosis throughout the body. CXR reviewed. ECHO: 1. Normal left ventricular systolic function. Normal left ventricular cavity size. Moderate concentric left ventricular hypertrophy. Ejection fraction is visually estimated at 65 %. Abnormal Diastolic Function. 2. Aortic sclerosis without stenosis. Objective Vital Signs Date Time Temp Pulse Resp B/P Pulse Ox O2 Delivery O2 Flow Rate FiO2 10/16/17 14:45 54 14 78/33 99 Mechanical Ventilator 10/16/17 12:00 97.3 10/16/17 11:40 40 Intake and Output 10/15/17 10/15/17 10/16/17 15:00 23:00 07:00 Intake Total 800 ml 800 ml Balance 800 ml 800 ml Results/Medications Result Diagram: 10/16/17 0739 10/16/17 0739 Results 24 hrs Laboratory Tests Test 10/15/17 17:54 10/16/17 00:28 10/16/17 05:40 10/16/17 07:39 Bedside Glucose 175 164 141 White Blood Count 19.0 H Red Blood Count 2.39 L Hemoglobin 7.9 L Hematocrit 25.1 L Mean Corpuscular Volume 105.0 H Mean Corpuscular Hemoglobin 33.1 H Mean Corpuscular Hemoglobin Concent 31.5 L Red Cell Distribution Width 23.0 H Platelet Count 48 L Mean Platelet Volume Neutrophils % 90.2 H Lymphocytes % 0.0 L Monocytes % 7.1 Eosinophils % 0.1 Basophils % 0.1 Nucleated Red Blood Cells % 7.0 H Neutrophils # 17.1 H Lymphocytes # 0.0 L Monocytes # 1.3 H Eosinophils # 0.0 Basophils # 0.0 Nucleated Red Blood Cells # 1.3 H Sodium Level 134 L Potassium Level 4.3 Chloride Level 95 L Carbon Dioxide Level 31 Anion Gap 12 Blood Urea Nitrogen 83 H Creatinine 1.89 H Glucose Level 102 Calcium Level 8.1 L Phosphorus Level 4.5 Magnesium Level 2.8 H Test 10/16/17 11:27 10/16/17 11:28 Bedside Glucose 77 79 Medications Current Medications Hydromorphone HCl (Dilaudid) 0.5 mg Q4H PRN IV PAIN Last administered on 17:00; Admin Dose 0.5 MG; Start 09/27/17 at 23:00 Midodrine (Proamatine) 10 mg TID@,,17 GTB Last administered on 10/16/17 13:11; Admin Dose 10 MG; Start 09/28/17 at 09:00 Ascorbic Acid (Vitamin C) 500 mg DAILY GTB Last administered on 10/16/17 08: 20; Admin Dose 500 MG; Start 09/28/17 at 09:00 Cholecalciferol (Vitamin D) 2,000 unit DAILY GTB Last administered on 08:20; Admin Dose 2,000 UNIT; Start 09/28/17 at 09:00 Ferrous Sulfate (Feosol Liquid Cup) 300 mg DAILY GTB Last administered on 10/16 08:20; Admin Dose 300 MG; Start 09/28/17 at 09:00 Folic Acid (Folic Acid) 1 mg DAILY GTB Last administered on 10/16/17 08:20; Admin Dose 1 MG; Start 09/28/17 at 09:00 Lactobacillus Acidophilus/ Rhamnosus (Culturelle) 1 cap BID GTB Last administered on 10/16/17 08:20; Admin Dose 1 CAP; Start 09/28/17 at 09:00 Sertraline HCl (Zoloft) 25 mg QHS GTB Last administered on 10/15/17 21:00; Admin Dose 25 MG; Start 09/28/17 at 21:00 Tramadol HCl (Ultram) 50 mg Q8 GTB Last administered on 10/16/17 05:45; Admin Dose 50 MG; Start 09/28/17 at 14:00 Zolpidem Tartrate (Ambien) 5 mg QHS PRN GTB INSOMNIA; Start 09/28/17 at 08:00 Diagnostic Test (Pha) (Accu-Chek) 1 ea 02 XX Last administered on 10/08/17 01 :31; Admin Dose 1 EA; Start 09/29/17 at 02:00 Collagenase (Santyl) 1 applic DAILY TOP Last administered on 10/16/17 10:20; Admin Dose 1 APPLIC; Start 09/29/17 at 12:00 Docusate Sodium (Colace Liquid Cup) 100 mg BID GTB Last administered on 08:21; Admin Dose 100 MG; Start 09/30/17 at 21:00 Multivitamins/ Minerals (Theragran-M) 1 tab DAILY GTB Last administered on 08:20; Admin Dose 1 TAB; Start 09/30/17 at 10:00 Lansoprazole (Prevacid) 30 mg DAILY@06 GTB Last administered on 10/16/17 05: 37; Admin Dose 30 MG; Start 09/30/17 at 12:15 Hydrogen Peroxide (Hydrogen Peroxide) 1 applic BID TOP Last administered on 10:20; Admin Dose 1 APPLIC; Start 09/30/17 at 21:00 Heparin Sodium (Porcine) (Heparin (5000 Units/0.5 ml)) 5,000 unit BID SC Last administered on 10/16/17 08:21; Admin Dose 5,000 UNIT; Start 10/01/17 at 21: 00 Brimonidine Tartrate (Alphagan P 0.1%) 1 drop BID BOTH EYES Last administered on 10/16/17 08:22; Admin Dose 1 DROP; Start 10/03/17 at 21:00 Silver Sulfadiazine 1 applic 1 applic DAILY TOP Last administered on 10:21; Admin Dose 1 APPLIC; Start 10/05/17 at 11:00 Colistimethate Sodium/Sodium Chloride (Coly-Mycin/NS) 100 ml @ 200 mls/hr Q24H IVPB Last administered on 10/15/17 15:46; Admin Dose 200 MLS/HR; Start 10/08 at 15:00 Hydrocortisone (Solu-Cortef) 25 mg Q8 IV Last administered on 10/16/17 13:05 ; Admin Dose 25 MG; Start 10/10/17 at 14:00 Insulin Aspart (Novolog Insulin Pen) NOVOLOG *MILD* ALGORITHM Q6 SC Last administered on 10/15/17 17:56; Admin Dose 1 UNIT; Start 10/12/17 at 12:00 Miscellaneous Information 1 ea NOTE XX ; Start 10/14/17 at 10:30 Glucose (Glutose) 15 gm Q15M PRN PO DECREASED GLUCOSE; Start 10/14/17 at 10:30 Glucose (Glutose) 22.5 gm Q15M PRN PO DECREASED GLUCOSE; Start 10/14/17 at 10: 30 Dextrose (D50w Syringe) 25 ml Q15M PRN IV DECREASED GLUCOSE; Start 10/14/17 at 10:30 Dextrose (D50w Syringe) 50 ml Q15M PRN IV DECREASED GLUCOSE; Start 10/14/17 at 10:30 Glucagon (Glucagen) 1 mg Q15M PRN IM DECREASED GLUCOSE; Start 10/14/17 at 10: 30 Glucose (Glutose) 15 gm Q15M PRN BUCCAL DECREASED GLUCOSE; Start 10/14/17 at 10:30 Metronidazole 250 mg 250 mg Q8 GTB Last administered on 10/16/17 13:05; Admin Dose 250 MG; Start 10/14/17 at 16:00 Caspofungin/ Sodium Chloride (Cancidas/NS) 250 ml @ 250 mls/hr Q24H IVPB Last administered on 10/15/17 17:20; Admin Dose 250 MLS/HR; Start 10/15/17 at 16: 00 Amikacin Sulfate AMIKACIN PER PHARMACY NOTE XX ; Start 10/15/17 at 14:00 Norepinephrine 250 ml @ 1.875 mls/ hr TITRATE IV Last administered on 13:56; Admin Dose 56.25 MLS/HR; Start 11/28/17 at 11:00 Vasopressin 60 unit/Dextrose 60 ml @ 1.2 mls/hr Q12H IV Last administered on 10/16/17 12:06; Admin Dose 1.2 MLS/HR; Start 10/16/17 at 12:00 Phenylephrine HCl 160 mg/Dextrose 500 ml @ 18.75 mls/ hr TITRATE IV Last administered on 10/16/17 14:41; Admin Dose 56.25 MLS/HR; Start 10/16/17 at 14 :30 Linezolid (Zyvox 600mg/D5W (Pmx)) 300 ml @ 300 mls/hr Q12 IVPB ; Start at 14:00 Assessment/Plan Chief Complaint/Hosp Course 1. severe sepsis and septic SHOCK: pt is back on multiple pressors. 2. P-Afib: pt has converted to NSR/ junctional maude now. 3. hypoxemic resp failure: s/p trach vent dependent now. 4. hx anemia and GI bleed: off of any anticoagulation 5. ESRD 6. 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 s/p multiple infections 8. dysphagia: s/p PEG 9. encephalopathy: 10. fluid overload/ CHF/ anasarca: ACUTE on chronic due to fluid overload and diastolic failure. 11. Ventricular arrhythmia and PVC/ VT and even torsades: not a good candidate for amiodarone due to prolonged QT and episodes of torsades and bradycardia now . Recommendations: Vent support will be continued for now. Hemodialysis will be managed by nephrology team .correction of electrolytes with assistance of HD but at this point appears to be to unstable to be able to tolerate HD. fluid management with HD as tolerated. Transfusion prn has been given. Patient currently off of full anticoagulation due to concern about history of severe anemia as well as GI bleed and OB positive stool. prognosis is poor code is DNR now will cont with multiple pressors for now but dw family to consider comfort care only given very poor prognosis more than 40 minutes of critical care time was spent in management and treatment of this critically ill pt excluding any procedures. Thank you for his referral. I will continue to follow along with you. DIOR JEFFERSON MD [facility] Problems: DIOR JEFFERSON MD Oct 16, 2017 14:57
[2017-10-16 15:19] LABS: INR 1.89; PROTIME 21.9 Sec (12.2-14.2); PT RATIO 1.7
[2017-10-16] MEDS: COLISTIMETHATE 75 MG in SOD CHLORIDE 0.9% 100 ML IVPB SCH ×2 (16:22→19:47)
[2017-10-16] MEDS: CASPOFUNGIN 50 MG in SOD CHLORIDE 0.9% 250 ML IVPB SCH (16:56)
--- NOTE | 2017-10-16 18:49 | CONS ---
Date/Time of Note Date/Time of Note DATE: 10/16/17 TIME: 18:48 Assessment/Plan Assessment/Plan Additional Assessment/Plan Additional Assessment/Plan IMPRESSION: 1. Status post aneurysm repair. 2. Septic shock. 3. Encephalopathy. CT scan of the brain no acute pathology, patient is still semi-comatose 4. Respiratory failure. 5. G-tube. Recent is tolerating feeding 6. End-stage renal disease for which he is on dialysis. 7. Atrial fibrillation. 8. Anemia. 9. Nontoxic megacolon. Better 10. DVT status post IVC filter. 11 rectal bleeding definitely from hemorrhoids. I did rectal exam patient's stool was normal in color and no fresh blood was seen PLAN: Continue all supportive care Continue dialysis on vent support Antibiotic as per LAVERNE Campbell flush as needed for abdominal distention Discussed with the who is by the side of the patient Patient is on pressor support and is not a candidate for any invasive procedure. We will manage him conservatively and his prognosis remains poor Consultation Date/Type/Reason Admit Date/Time Sep 27, 2017 at 21:00 Initial Consult Date 09/28/17 Type of Consultation: card Referring Provider: PHILIPPE JUARES DO 24 HR Interval Summary Free Text/Dictation Patient transferred to intensive care unit. Patient had a rectal bleeding. No melena Subjective hx not possible: pt critical Exam/Review of Systems Vital Signs Vitals Vital Signs Date Time Temp Pulse Resp B/P Pulse Ox O2 Delivery O2 Flow Rate FiO2 10/16/17 18:15 71 15 70/33 Mechanical Ventilator 10/16/17 17:45 94 10/16/17 17:30 40 10/16/17 16:00 97.3 Intake and Output 10/15/17 10/15/17 10/16/17 15:00 23:00 07:00 Intake Total 800 ml 800 ml Balance 800 ml 800 ml Exam Constitutional: alert, oriented, well developed Psych: nl mood/affect, no complaints Head: atraumatic, normocephalic Eyes: EOMI, PERRL, nl conjunctiva, nl lids, nl sclera ENMT: nl external ears & nose, nl lips & teeth, nl nasal mucosa & septum Neck: non-tender, supple Respiratory: clear to auscultation, normal air movement Cardiovascular: nl pulses, regular rate and rhythm Gastrointestinal: nl liver, spleen, non-tender, soft Musculoskeletal: nl extremities to inspection, nl gait and stance Extremities: normal pulses Neurological: CLAY ARTIST II-XII intact, nl mental status, nl speech, nl strength Skin: nl turgor, No rash or lesions Lymph: nl lymph nodes Results Result Diagram: 10/16/17 0739 10/16/17 0739 Results 24 hrs Laboratory Tests Test 10/16/17 00:28 10/16/17 05:40 10/16/17 07:39 10/16/17 11:27 Bedside Glucose 164 141 77 White Blood Count 19.0 H Red Blood Count 2.39 L Hemoglobin 7.9 L Hematocrit 25.1 L Mean Corpuscular Volume 105.0 H Mean Corpuscular Hemoglobin 33.1 H Mean Corpuscular Hemoglobin Concent 31.5 L Red Cell Distribution Width 23.0 H Platelet Count 48 L Mean Platelet Volume Neutrophils % 90.2 H Lymphocytes % 0.0 L Monocytes % 7.1 Eosinophils % 0.1 Basophils % 0.1 Nucleated Red Blood Cells % 7.0 H Neutrophils # 17.1 H Lymphocytes # 0.0 L Monocytes # 1.3 H Eosinophils # 0.0 Basophils # 0.0 Nucleated Red Blood Cells # 1.3 H Sodium Level 134 L Potassium Level 4.3 Chloride Level 95 L Carbon Dioxide Level 31 Anion Gap 12 Blood Urea Nitrogen 83 H Creatinine 1.89 H Glucose Level 102 Calcium Level 8.1 L Phosphorus Level 4.5 Magnesium Level 2.8 H Test 10/16/17 11:28 10/16/17 14:33 10/16/17 17:00 Bedside Glucose 79 87 Prothrombin Time 21.9 #H Prothrombin Time Ratio 1.7 INR International Normalized Ratio 1.89 Medications Medications Current Medications Hydromorphone HCl (Dilaudid) 0.5 mg Q4H PRN IV PAIN Last administered on 17:00; Admin Dose 0.5 MG; Start 09/27/17 at 23:00 Midodrine (Proamatine) 10 mg TID@,, GTB Last administered on 10/16/17 16:56; Admin Dose 10 MG; Start 09/28/17 at 09:00 Ascorbic Acid (Vitamin C) 500 mg DAILY GTB Last administered on 10/16/17 08: 20; Admin Dose 500 MG; Start 09/28/17 at 09:00 Cholecalciferol (Vitamin D) 2,000 unit DAILY GTB Last administered on 08:20; Admin Dose 2,000 UNIT; Start 09/28/17 at 09:00 Ferrous Sulfate (Feosol Liquid Cup) 300 mg DAILY GTB Last administered on 10/16 08:20; Admin Dose 300 MG; Start 09/28/17 at 09:00 Folic Acid (Folic Acid) 1 mg DAILY GTB Last administered on 10/16/17 08:20; Admin Dose 1 MG; Start 09/28/17 at 09:00 Lactobacillus Acidophilus/ Rhamnosus (Culturelle) 1 cap BID GTB Last administered on 10/16/17 08:20; Admin Dose 1 CAP; Start 09/28/17 at 09:00 Sertraline HCl (Zoloft) 25 mg QHS GTB Last administered on 10/15/17 21:00; Admin Dose 25 MG; Start 09/28/17 at 21:00 Tramadol HCl (Ultram) 50 mg Q8 GTB Last administered on 10/16/17 05:45; Admin Dose 50 MG; Start 09/28/17 at 14:00 Zolpidem Tartrate (Ambien) 5 mg QHS PRN GTB INSOMNIA; Start 09/28/17 at 08:00 Diagnostic Test (Pha) (Accu-Chek) 1 ea 02 XX Last administered on 10/08/17 01 :31; Admin Dose 1 EA; Start 09/29/17 at 02:00 Collagenase (Santyl) 1 applic DAILY TOP Last administered on 10/16/17 10:20; Admin Dose 1 APPLIC; Start 09/29/17 at 12:00 Docusate Sodium (Colace Liquid Cup) 100 mg BID GTB Last administered on 08:21; Admin Dose 100 MG; Start 09/30/17 at 21:00 Multivitamins/ Minerals (Theragran-M) 1 tab DAILY GTB Last administered on 08:20; Admin Dose 1 TAB; Start 09/30/17 at 10:00 Lansoprazole (Prevacid) 30 mg DAILY@06 GTB Last administered on 10/16/17 05: 37; Admin Dose 30 MG; Start 09/30/17 at 12:15 Hydrogen Peroxide (Hydrogen Peroxide) 1 applic BID TOP Last administered on 10:20; Admin Dose 1 APPLIC; Start 09/30/17 at 21:00 Heparin Sodium (Porcine) (Heparin (5000 Units/0.5 ml)) 5,000 unit BID SC Last administered on 10/16/17 08:21; Admin Dose 5,000 UNIT; Start 10/01/17 at 21: 00 Brimonidine Tartrate (Alphagan P 0.1%) 1 drop BID BOTH EYES Last administered on 10/16/17 08:22; Admin Dose 1 DROP; Start 10/03/17 at 21:00 Silver Sulfadiazine 1 applic 1 applic DAILY TOP Last administered on 10:21; Admin Dose 1 APPLIC; Start 10/05/17 at 11:00 Colistimethate Sodium/Sodium Chloride (Coly-Mycin/NS) 100 ml @ 200 mls/hr Q24H IVPB Last administered on 10/16/17 16:22; Admin Dose 200 MLS/HR; Start 10/08 at 15:00 Hydrocortisone (Solu-Cortef) 25 mg Q8 IV Last administered on 10/16/17 13:05 ; Admin Dose 25 MG; Start 10/10/17 at 14:00 Insulin Aspart (Novolog Insulin Pen) NOVOLOG *MILD* ALGORITHM Q6 SC Last administered on 10/15/17 17:56; Admin Dose 1 UNIT; Start 10/12/17 at 12:00 Miscellaneous Information 1 ea NOTE XX ; Start 10/14/17 at 10:30 Glucose (Glutose) 15 gm Q15M PRN PO DECREASED GLUCOSE; Start 10/14/17 at 10:30 Glucose (Glutose) 22.5 gm Q15M PRN PO DECREASED GLUCOSE; Start 10/14/17 at 10: 30 Dextrose (D50w Syringe) 25 ml Q15M PRN IV DECREASED GLUCOSE; Start 10/14/17 at 10:30 Dextrose (D50w Syringe) 50 ml Q15M PRN IV DECREASED GLUCOSE; Start 10/14/17 at 10:30 Glucagon (Glucagen) 1 mg Q15M PRN IM DECREASED GLUCOSE; Start 10/14/17 at 10: 30 Glucose (Glutose) 15 gm Q15M PRN BUCCAL DECREASED GLUCOSE; Start 10/14/17 at 10:30 Metronidazole 250 mg 250 mg Q8 GTB Last administered on 10/16/17 13:05; Admin Dose 250 MG; Start 10/14/17 at 16:00 Caspofungin/ Sodium Chloride (Cancidas/NS) 250 ml @ 250 mls/hr Q24H IVPB Last administered on 10/16/17 16:56; Admin Dose 250 MLS/HR; Start 10/15/17 at 16: 00 Amikacin Sulfate AMIKACIN PER PHARMACY NOTE XX ; Start 10/15/17 at 14:00 Norepinephrine 250 ml @ 1.875 mls/ hr TITRATE IV Last administered on 13:56; Admin Dose 56.25 MLS/HR; Start 10/16/17 at 11:00; Stop 10/16/17 at 22:00 Vasopressin 60 unit/Dextrose 60 ml @ 1.2 mls/hr Q12H IV Last administered on 10/16/17 12:06; Admin Dose 1.2 MLS/HR; Start 10/16/17 at 12:00 Phenylephrine HCl 160 mg/Dextrose 500 ml @ 18.75 mls/ hr TITRATE IV Last administered on 10/16/17 14:41; Admin Dose 56.25 MLS/HR; Start 10/16/17 at 14 :30 Linezolid 300 ml @ 300 mls/hr Q12 IVPB Last administered on 10/16/17 15:23; Admin Dose 300 MLS/HR; Start 10/16/17 at 14:00 Norepinephrine/ Dextrose (Levophed/D5W) 500 ml @ 0 mls/hr TITRATE IV ; Start at 17:00 LIANNA BOWLING MD Oct 16, 2017 18:49
[2017-10-16] MEDS: SERTRALINE 50 MG TAB GTB SCH (20:11)
--- NOTE | 2017-10-17 09:01 | CONS ---
Date/Time of Note Date/Time of Note DATE: 10/17/17 TIME: 08:56 Consultation Date/Type/Reason Admit Date/Time Sep 27, 2017 at 21:00 Type of Consultation: Palliative care Reason for Consultation This is a family conference and patient who is currently in the intensive care unit. I reviewed medical record since hospitalization and spoke to Dr. Gong. Patient essentially is on 3 pressors at this time trached on 100% FiO2 patient is dying from respiratory failure, sepsis with shock. These were the extension note from vascular surgical consultation concerning repair of aneurysm unfortunately patient had a progressive downhill course after that. However it is noted that he has been extremely ill for some period of time prior to hospitalization per patient's family. Participants was patient's and son second son is en route from [place] patient's is a decision maker for the family she is one who is give me a background social history for patient. They have a clear understanding of his underlying serious medical problems hopes desires acceptable quality of life is for him not to remain on the ventilator although she is strongly congregation. And according to history has been reluctant to discontinue her change level of care but with extensive conversation with Dr. Gong she is change his CODE STATUS to DO NOT RESUSCITATE. There were no issues cultural preferences communication issues were good reviewed past medical history as noted above his prognosis is none. He will today. This is been explained to patient's states that she understands this and has come to peace with the fact that he is dying she is very concerned that he does not have symptoms [id number]. Psychosocial social issues have been addressed however other family members on route once again ethical legal issues were addressed which were attended to and they were no issues except for the decision maker. Patient CODE STATUS is DO NOT RESUSCITATE. I discussed comfort measures with patient's I do not think that she will ask for increasing level of care she does not want to have cardiopulmonary resuscitation she will consider withdrawing current level of care and allow him to a natural when other family members arrive. Social History Alcohol Use: none Smoking Status: Former smoker Drug Use: none Exam/Review of Systems Vital Signs Vitals Vital Signs Date Time Temp Pulse Resp B/P Pulse Ox O2 Delivery O2 Flow Rate FiO2 10/16/17 20:30 0 0 10/16/17 20:15 41/25 Mechanical Ventilator 10/16/17 20:00 100 10/16/17 20:00 96.1 10/16/17 17:45 94 Intake and Output 10/16/17 10/16/17 10/17/17 15:00 23:00 07:00 Intake Total 515.85 ml 994.70 ml Balance 515.85 ml 994.70 ml Results Result Diagram: 10/16/17 0739 10/16/17 0739 Results 24 hrs Laboratory Tests Test 10/16/17 11:27 10/16/17 11:28 10/16/17 14:33 10/16/17 17:00 Bedside Glucose 77 79 87 Prothrombin Time 21.9 #H Prothrombin Time Ratio 1.7 INR International Normalized Ratio 1.89 JEFF SANON Oct 17, 2017 09:01
--- NOTE | 2017-10-18 12:29 | DES ---
DATE OF ADMISSION: 09/27/2017 DATE OF : 10/16/2017 HOSPITAL COURSE: This is an 87-year-old male with a past medical history of ventilator dependent re spiratory failure, history of end-stage renal disease, history of hypertension, BPH, CHF, coronary a rtery disease, AFib, who presented to [facility] from [facility] undergoing pseudoaneurysm repair. The patient in the intensive care unit following surgery went into septic shock. Secondary to underlying pneumonia. The patient was placed on IV antibiotics an d pressor support. He was seen by multiple specialists including Dr. Bower, Dr. Beebe, Dr. Saba gill and Dr. Owen Lua, and Dr. Chu. The patient after several days in the ICU was eventually able to be weaned off pressor support and was transferred to telemetry. While on telemetry, the pat ient, however, was noted to be obtundent, a CT scan of the brain was obtained on 2 occasions which s howed no acute pathology. A neurologist evaluation was performed by Dr. Pérez which showed patient to be obtundent likely from toxic metabolic reasons. The patient had a further decline in clinical status, became hypotensive, shock again and was transferred back to the intensive care unit where he was noted to also have possible gastrointestinal bleed. At which point the patient's family decide d to place the patient on comfort measures where he . FINAL DIAGNOSES: 1. Septic shock. 2. Ventilator dependent respiratory failure. 3. Right pseudoaneurysm status postsurgical repair. 4. Acute encephalopathy. 5. End-stage renal disease. 6. Volume overload. 7. Congestive heart failure. 8. 9. Hyperkalemia. 10. Hyponatremia. 11. Atrial fibrillation. 12. Dysphagia. 13. Decubitus wound. Dictated By: PHILIPPE WILSON/NTS Conf#: [id number] DID#: [id number] CC: CORA LUA MD;*EndCC*
== END 2017-10-16 20:39 | disposition expired | DRG 853 ==
LOC: SDS 14:34 → ICU 21:00 → TEL 10-08 10:18 → ICU 10-16 09:16
PROVIDERS: ADMIT Internal Medicine; ATTEND Thoracic Surgery (Cardiothoracic Vascular Surgery)
PROC: 5A1955Z Respiratory Ventilation, Greater than 96 Consecutive Hours (ICD-10-PCS; 2017-09-27)
PROC: 04QK0ZZ Repair Right Femoral Artery, Open Approach (ICD-10-PCS; principal; 2017-09-27 18:00)
PROC: 5A1D70Z Performance of Urinary Filtration, Intermittent, Less than 6 Hours Per Day (ICD-10-PCS; 2017-09-28)
DX: A41.9 Sepsis, unspecified organism (principal); R65.21 Severe sepsis with septic shock; G92 Toxic encephalopathy; J18.9 Pneumonia, unspecified organism; L89.154 Pressure ulcer of sacral region, stage 4; I50.33 Acute on chronic diastolic (congestive) heart failure; L89.212 Pressure ulcer of right hip, stage 2; J96.11 Chronic respiratory failure with hypoxia; L89.220 Pressure ulcer of left hip, unstageable; N18.6 End stage renal disease; N39.0 Urinary tract infection, site not specified; D62 Acute posthemorrhagic anemia; T85.79XA Infection and inflammatory reaction due to other internal prosthetic devices, implants and grafts, initial encounter; I13.2 Hypertensive heart and chronic kidney disease with heart failure and with stage 5 chronic kidney disease, or end stage renal disease; K92.2 Gastrointestinal hemorrhage, unspecified; K59.39 Other megacolon; I72.4 Aneurysm of artery of lower extremity; Z99.2 Dependence on renal dialysis; Z66 Do not resuscitate
CPT/HCPCS: 36600; 70450; 71010; 80048; 80053; 80076; 82533; 82550; 82803; 82962; 83605; 83735; 84100; 84145; 85025; 85610; 86850; 86900; 86901; 86920; 87040; 87081; 88304; 90686; 90935; 93005; 94002; 94003; 94799; J0278; J0690; J1170; J1644; J1720; J1815; J2185; J2370; J3010; J3370; J7030; J7040; J7042; J7050; J7060; P9047